=== PATIENT | female | born 1985 | race Caucasian/White ===

== ENCOUNTER 2017-07-06 10:28 | Emergency (ER) | payer SELFPAY ==
[~2017-07-06] VITALS: Ht 170.2 cm; Wt 60.0 kg
[~2017-07-06 10:28] MED LIST: ADDE30TA PO; GABA600T PO; IMIT50TA PO; LORA1TAB12 PO; METH5TAB PO; PAXI30TA7 PO; TOPI50TA7 PO
[2017-07-06 10:40] VITALS: BP 113/75; PULSE 79; RESP 16; TEMP 97.6; O2SAT 98
--- NOTE | 2017-07-06 12:10 | PD ---
HPI Chief Complaint: Related Problem Time Seen by Provider: 11:48 Travel History International Travel<30 days: No Contact w/Intl Traveler<30days: No Traveled to known affect area: No History of Present Illness HPI 32-year-old [id number] female presents to the ED with concern of heavy vaginal bleeding and pelvic cramping that started this morning. Says that she is two weeks late for her period as her LMP was in the beginning of May. She believes she is . Says she has had one sexual partner in the last month. She denies vaginal discharge or odors. Denies urinary symptoms. Denies fevers or chills. She says that she had a miscarriage previously and says her symptoms feel like this now. PFSH Past Medical History Anxiety: Yes Depression: Yes Diabetes: No Diminished Hearing: No Hepatitis: Yes (C+) Psychiatric: Yes (BODERLINE PERSONALITY D/O PER PATIENT) Migraines: Yes ?: LMP: UNKNOWN Past Surgical History Surgical History: No Previous Surgery Social History Alcohol Use: Yes Tobacco Use: Yes Substance Use: Yes Allergies-Medications (Allergen,Severity, Reaction): Coded Allergies: Sulfa (Sulfonamide Antibiotics) (Verified Allergy, Intermediate, 05/14/17) PT STATES INCREASES HER TEMP Reported Meds & Prescriptions Reported Meds & Active Scripts Active Reported Lorazepam 1 Mg Tab 1 Mg PO BID Gabapentin 600 Mg Tab 600 Mg PO TID Adderall (Amphetamine-Dextroamphetamine) 30 Mg Tab 30 Mg PO BID Avoid late evening doses. Space doses at least 4 to 6 hours if more than once/day dosing. Paxil (Paroxetine HCl) 30 Mg Tab 40 Mg PO DAILY Imitrex (Sumatriptan Succinate) 50 Mg Tab 50 Mg PO ONCE PRN If a satisfactory response has not been obtained at 2 hours, a second dose may be administered Topiramate 50 Mg Tab 100 Mg PO BID Methadone (Methadone HCl) 5 Mg Tab 2.5 Mg PO DAILY Review of Systems Except as stated in HPI: all other systems reviewed are Neg Physical Exam Narrative GENERAL: Well-developed, well-nourished slightly anxious SKIN: Focused skin assessment warm/dry. HEAD: Atraumatic. Normocephalic. EYES: Pupils equal and round. No scleral icterus. No injection or drainage. ENT: No nasal bleeding or discharge. Mucous membranes pink and moist. NECK: Trachea midline. No JVD. CARDIOVASCULAR: Regular rate and rhythm. No murmur appreciated. RESPIRATORY: No accessory muscle use. Clear to auscultation. Breath sounds equal bilaterally. GASTROINTESTINAL: Abdomen soft, mildly tender palpation in the right lower quadrant/right pelvic area without rebound tenderness, no CVA tenderness MUSCULOSKELETAL: No obvious deformities. No clubbing. No cyanosis. No edema. NEUROLOGICAL: Awake and alert. No obvious cranial nerve deficits. Motor grossly within normal limits. Normal speech. PSYCHIATRIC: Appropriate mood and affect; insight and judgment normal. Data Data Last Documented VS Vital Signs Date Time Temp Pulse Resp B/P (MAP) Pulse Ox O2 Delivery O2 Flow Rate FiO2 07/06/17 10:40 97.6 79 16 113/75 (88) 98 Orders Orders Beta Hcg (Quant/Titer) (07/06/17 11:58) Complete Blood Count With Diff (07/06/17 12:07) Ed Urine Pregnancytest Poc (07/06/17 12:42) Labs Laboratory Tests Test 07/06/17 12:04 07/06/17 13:21 Human Chorionic Gonadotropin, Quant LESS THAN 1 MIU/ML White Blood Count 7.4 TH/MM3 Red Blood Count 4.02 MIL/MM3 Hemoglobin 13.1 GM/DL Hematocrit 36.9 % Mean Corpuscular Volume 91.7 FL Mean Corpuscular Hemoglobin 32.6 PG Mean Corpuscular Hemoglobin Concent 35.6 % Red Cell Distribution Width 13.7 % Platelet Count 261 TH/MM3 Mean Platelet Volume 8.4 FL Neutrophils (%) (Auto) 70.7 % Lymphocytes (%) (Auto) 21.8 % Monocytes (%) (Auto) 6.4 % Eosinophils (%) (Auto) 0.3 % Basophils (%) (Auto) 0.8 % Neutrophils # (Auto) 5.2 TH/MM3 Lymphocytes # (Auto) 1.6 TH/MM3 Monocytes # (Auto) 0.5 TH/MM3 Eosinophils # (Auto) 0.0 TH/MM3 Basophils # (Auto) 0.1 TH/MM3 CBC Comment DIFF FINAL Differential Comment MDM Medical Decision Making Medical Screen Exam Complete: Yes Emergency Medical Condition: Yes Differential Diagnosis status, miscarriage, abnormal uterine bleeding, menstruation cycle Narrative Course 32-year-old [id number] female presents to the ED with concern of heavy vaginal bleeding and pelvic cramping that started this morning. Says that she is two weeks late for her period as her LMP was in the beginning of May. She believes she is . Says she has had one sexual partner in the last month. She denies vaginal discharge or odors. Denies urinary symptoms. Denies fevers or chills. She says that she had a miscarriage previously and says her symptoms feel like this now. She has no other complaints today. Vital signs are stable. The exam findings demonstrate a 32-year-old female, well-developed, well- nourished in no apparent distress. She is slightly anxious while discussing her situation. Her right pelvic/right lower quadrant is mildly tender to palpation without rebound tenderness. [id number] test negative. Followed up with a negative quantitative hCG. Pending CBC. Prior to discussion with the patient regarding the findings of the ECG, patient and friend left the room. Patient left AGAINST MEDICAL ADVICE without being discharged. Diagnosis Primary Impression: Vaginal bleeding Referrals: Travel Assistant Additional Instructions: You may take Tylenol or Motrin for pain. Motrin may also reduce the amount of bleeding that you have. I highly recommend he follow-up with a wrong address clerk for further evaluation. Disposition: 01 DISCHARGE HOME Condition: Stable Marina Gutierrez July 06, 2017 12:10
[2017-07-06 13:45] LABS: AUTOMATED NEUTROPHIL # 5.2 TH/MM3 (1.8-7.7); BASOPHIL # 0.1 TH/MM3 (0-0.2); BASOPHIL % 0.8 % (0.0-2.0); EOSINOPHIL % 0.3 % (0.0-4.0); HEMATOCRIT 36.9 % (35.0-46.0); HEMOGLOBIN 13.1 GM/DL (11.6-15.3); LYMPH % 21.8 % (9.0-44.0); LYMPHOCYTE # 1.6 TH/MM3 (1.0-4.8); MEAN CELL VOLUME 91.7 FL (80.0-100.0); MEAN CORPUSCULAR HEMOGLOBIN 32.6 PG (27.0-34.0); MEAN CORPUSCULAR HGB CONC 35.6 % (32.0-36.0); MEAN PLATELET VOLUME 8.4 FL (7.0-11.0); MONO % 6.4 % (0.0-8.0); MONOCYTE # 0.5 TH/MM3 (0-0.9); NEUT % 70.7 % (16.0-70.0); PLATELET COUNT 261 TH/MM3 (150-450); RED BLOOD COUNT 4.02 MIL/MM3 (4.00-5.30); RED CELL DISTRIBUTION WIDTH 13.7 % (11.6-17.2); WHITE BLOOD COUNT 7.4 TH/MM3 (4.0-11.0)
== END 2017-07-06 13:30 | disposition left against medical advice (07) ==
LOC: NEPD 10:28
DX: N93.9 Abnormal uterine and vaginal bleeding, unspecified (principal); F41.9 Anxiety disorder, unspecified; F32.9 Major depressive disorder, single episode, unspecified; B19.20 Unspecified viral hepatitis C without hepatic coma; Z72.0 Tobacco use
CPT/HCPCS: 84702; 84703; 85025; 99283

== ENCOUNTER 2018-01-28 17:12 | Inpatient (IN) ==
[2018-01-28] MEDS ORDERED: Ketorolac Inj 30 MG/ML (IVP) Vial IV.PUSH ONE (17:38)
[2018-01-28] MEDS ORDERED: Sod Chloride 0.9% Inj 1,000 ML IV.SIG SCH ×2 (17:45→18:30)
--- NOTE | 2018-01-28 17:46 | ED ---
HPI General Chief Complaint: Respiratory Symptoms Stated Complaint: poss pneumonia/poss strep Time Seen by Provider: 01/28/18 17:30 Source: patient Mode of arrival: ambulatory Limitations: no limitations History of Present Illness HPI Narrative: The patient is a 32-year-old female who presents to the emergency department for cough and cold symptoms. The patient states her initial symptoms started 1 week ago Thursday with body aches, nausea, vomiting , diarrhea, fever, chills, and sweats. The patient was seen at [facility] on and diagnosed with the flu, however, they did not do an influenza screen. The patient started to feel better on Thursday, however, on Thursday her symptoms started to return and progress. The patient now complains of a sore throat, pain with swallowing, loss of voice, and dry and nonproductive cough. The patient states that she has been "better" and only able to get out of bed to use the bathroom. She notes no appetite for the last 3 days and notes very little oral intake. The patient states she had "double pneumonia" last year in March with similar symptoms. The patient does have a history of tobacco use, last use cigarettes 1 week ago. The patient denies any history of autoimmune disorders or HIV, does have a history of hepatitis C. The patient denies any history of IV drug use or endocarditis. Symptoms are moderate and progressive without any alleviating factors. The patient's temperature earlier today was 101.4, she took ibuprofen and acetaminophen prior to arrival. The patient's primary physician is Dr. Con Guerrero. Complaint: Reports fever, cough and sore throat Onset (ago): day(s) Duration: constant and progressively worsening Severity: moderate Severity scale (1-10): 6 Relieving factors: NSAID Exacerbating factors: swallowing and speaking Description of mucous: Reports clear Able to tolerate fluids by mouth: No Context: Reports other Associated symptoms: Reports fever, chills, voice changes, myalgias, sore throat , cough, shortness of breath, nausea, vomiting and diarrhea Treatments prior to arrival: Reports acetaminophen Related Data Home Medications Medication Instructions Recorded Confirmed No Known Home Medications 01/28/18 01/28/18 Allergies Allergy/AdvReac Type Severity Reaction Status Date / Time Sulfa (Sulfonamide Allergy Intermediate Verified 05/14/17 22:25 Antibiotics) Review of Systems ROS: all other systems reviewed are negative PMFSH Medical History Medical History Patient denies medical problems (Acute) Surgical History Surgical History No history of previous surgery (Acute) Social History Social History Substance History: No History of Abuse Smoking Status: Current every day smoker Tobacco Type: Cigarettes How Often Do You Have a Drink Containing Alcohol: Never Recent Travel in [facility] within the Last 8 Weeks: No Recent Out of Country Travel within the Last 8 Weeks: No Immunization History Tetanus Immunization: Unsure Exam Narrative Exam Narrative: GENERAL: Awake, alert, 32-year-old female with a hoarse voice. SKIN: Focused skin assessment warm/dry. HEAD: Atraumatic. Normocephalic. EYES: Pupils equal and round. No scleral icterus. No injection or drainage. ENT: No nasal bleeding or discharge. Cobblestoning to posterior oropharynx but no erythema or exudate. NECK: Trachea midline. No JVD. CARDIOVASCULAR: Regular, tachycardic with a heart rate of 115. RESPIRATORY: Tachypnea with a respiratory rate of 28, no retractions, scattered rhonchi in the bases bilaterally. GASTROINTESTINAL: Abdomen soft, non-tender, nondistended. No rebound tenderness. Back: No CVA tenderness. MUSCULOSKELETAL: No obvious deformities. No clubbing. No cyanosis. No edema. NEUROLOGICAL: Awake and alert. No obvious cranial nerve deficits. Motor grossly within normal limits. Normal speech. PSYCHIATRIC: Appropriate mood and affect; insight and judgment normal. Procedures Ultrasound POC Ultrasound Procedure: I placed a 20-gauge, 1.88 inch ultrasound-guided IV in the left upper extremity using a linear probe. There was good blood return. The patient tolerated the procedure without difficulty. There was no obvious complications. Course Initial Documented Vital Signs Temperature 98.6 F 01/28/18 17:18 Pulse Rate 122 H 01/28/18 17:18 Blood Pressure 135/81 01/28/18 17:18 Last Documented Vital Signs Temperature 98.6 F 01/28/18 17:18 Pulse Rate 105 H 01/28/18 18:23 Respiratory Rate 20 01/28/18 18:23 Blood Pressure 121/74 01/28/18 18:23 Pulse Oximetry 90 L 01/28/18 18:43 Critical Care Time Critical Care Time: Yes Total Critical Care Time: 40 Attestation: Aggregate critical care time was 40 minutes. Time to perform other separately billable procedures was not included in the critical care time. My time did not include minutes spent treating any other patients simultaneously or on activities that did not directly contribute to the patient's treatment. The services I provided to this patient were to treat and/or prevent clinically significant deterioration that could result in: Anoxia, hypoxia, ARDS, septic shock, . I provided critical care services requiring my management, as noted below: Chart data review, documentation time, medication orders and management, vital sign assessments/reviewing monitor data, ordering and reviewing lab tests, ordering and interpreting/reviewing x-rays and diagnostic studies, care of the patient and discussion of the patient with the admitting physicians. Medical Decision Making MDM Narrative Medical decision making narrative: IV was established, labs are drawn and sent, and the patient was placed on cardiac telemetry monitoring and continuous pulse oximetry monitoring. EKG was ordered and interpreted. Chest x-ray was obtained. Lactic acid and blood cultures were sent to lab. The patient was administered 1 L of normal saline intravenously and Toradol 30 mg intravenously. Bedside UA test was obtained and UA was sent to lab. Nursing staff is only able to obtain a 22-gauge IV, therefore, I placed a 20- gauge ultrasound-guided IV in the left upper extremity. The patient's chest x- ray reveals bilateral infiltrates, may be viral pneumonia with ARDS, therefore, CT of the thorax without contrast was ordered. The patient was ordered cefepime and Zithromax. The patient's pulse oximetry seem to vary between the 40s and 80s with a good waveform, therefore, ABG was obtained revealing significant hypoxia. The patient was placed on a nonrebreather, she had good oxygen saturations of 88-92% on 15 L, she was able to talk, respiratory rate improved to 24. I did have a discussion with the patient regarding possible intubation if symptoms persist or progress. The patient will be admitted to the on-call cutting machine tender decorative. The patient will be admitted to the intensive care unit, I discussed the patient with Dr. Salazar. Medical Screen Exam Complete: Yes Emergency Medical Condition: Yes Differential Diagnosis Differential Diagnosis: Differential diagnosis includes influenza, pneumonia, bronchitis, viral syndrome, pyelonephritis, dehydration, acute kidney injury, pharyngitis. Lab Data Result diagrams: 01/28/18 18:05 01/28/18 18:05 POC Results POC Urine Results Negative Lab Results 01/28/18 01/28/18 01/28/18 Range/Units 18:05 18:05 18:10 CBC w Diff Auto diff final WBC 20.8 H (4.0-11.0) th/mm3 RBC 3.92 L (4.00-5.30) mil/mm3 Hgb 13.7 (11.6-15.3) gm/dL Hct 41.6 (35.0-46.0) % MCV 106.0 H (80.0-100.0) fL MCH 35.0 H (27.0-34.0) pg MCHC 33.0 (32.0-36.0) % RDW 19.6 H (11.6-17.2) % Plt Count 178 (150-450) th/mm3 MPV 8.8 (7.0-11.0) fL Neut % (Auto) 95.3 H (16.0-70.0) % Lymph % (Auto) 2.2 L (9.0-44.0) % [place] % (Auto) 1.4 (0.0-8.0) % Eos % (Auto) 0.2 (0.0-4.0) % Baso % (Auto) 0.9 (0.0-2.0) % Neut # (Auto) 19.8 H (1.8-7.7) th/mm3 Lymph # (Auto) 0.5 L (1.0-4.8) th/mm3 [place] # (Auto) 0.3 (0.0-0.9) th/mm3 Eos # (Auto) 0.0 (0.0-0.4) th/mm3 Baso # (Auto) 0.2 (0.0-0.2) th/mm3 WBC Differential . Differential Comment . Puncture Site Patient Temperature O2 Saturation (90-100) % ABG pH (7.380-7.420) ABG pCO2 (38-42) mmHg ABG pO2 (61-120) mmHg ABG HCO3 (22-26) mmol/L ABG O2 Content (12.0-20.0) Vol % ABG Base Excess (-2-2) mmol/L ABG Methemoglobin (0-2) % Alex Test Hemoglobin (12.0-16.0) G/DL Carboxyhemoglobin (0-4) % O2 Delivery Device Inspired O2 % Critical Value Sodium 138 (136-145) meq/L Potassium 2.8 L* (3.5-5.1) meq/L Chloride 108 H (98-107) meq/L Carbon Dioxide 17.0 L (21.0-32.0) meq/L Anion Gap 13 (5-15) meq/L BUN 12 (7-18) mg/dL Creatinine 0.81 (0.50-1.00) mg/dL Estimated GFR 82 L (>89) mL/min Random Glucose 150 H (74-106) mg/dL Lactic Acid (0.4-2.0) mmol/L Calcium 7.0 L* (8.5-10.1) mg/dL Calcium Adj for Albumin 8.4 L (8.5-10.1) mg/dL Magnesium 1.2 L (1.5-2.5) mg/dL Total Bilirubin 1.6 H (0.2-1.0) mg/dL AST 794 H (15-37) U/L ALT 298 H (10-53) U/L Alkaline Phosphatase 261 H (45-117) U/L Total Protein 5.7 L (6.4-8.2) g/dL Albumin 2.2 L (3.4-5.0) g/dL Urine Color Yellow (Yellw/Straw) Urine Clarity Clear (Clear) Urine pH 6.0 (5.0-8.5) Ur Specific [place] 1.010 (1.002-1.035) Urine Protein Trace (Neg-Trace) mg/dL Urine Glucose (UA) Negative (Negative) mg/dL Urine Ketones Negative (Negative) mg/dL Urine Occult Blood Negative (Negative) Urine Nitrate Negative (Negative) Urine Bilirubin Negative (Negative) Urine Urobilinogen 1.0 (Less than 2) mg/dL Ur Leukocyte Esterase Negative (Negative) Urine WBC 0-5 (0-5) /hpf Ur Squamous Epith Cells 0-5 (0-5) /hpf Urine Bacteria Rare H (None) /hpf Urine Mucus Rare H (Occasional) /lpf Micro UA Comment Culture not ind Ur Microscopic Review Microscopic reviewed Urine Culture Comments Culture not ind 01/28/18 01/28/18 Range/Units 18:30 18:50 CBC w Diff WBC (4.0-11.0) th/mm3 RBC (4.00-5.30) mil/mm3 Hgb (11.6-15.3) gm/dL Hct (35.0-46.0) % MCV (80.0-100.0) fL MCH (27.0-34.0) pg MCHC (32.0-36.0) % RDW (11.6-17.2) % Plt Count (150-450) th/mm3 MPV (7.0-11.0) fL Neut % (Auto) (16.0-70.0) % Lymph % (Auto) (9.0-44.0) % [place] % (Auto) (0.0-8.0) % Eos % (Auto) (0.0-4.0) % Baso % (Auto) (0.0-2.0) % Neut # (Auto) (1.8-7.7) th/mm3 Lymph # (Auto) (1.0-4.8) th/mm3 [place] # (Auto) (0.0-0.9) th/mm3 Eos # (Auto) (0.0-0.4) th/mm3 Baso # (Auto) (0.0-0.2) th/mm3 WBC Differential Differential Comment Puncture Site Left radial Patient Temperature 98.6 O2 Saturation 47 L* (90-100) % ABG pH 7.46 H (7.380-7.420) ABG pCO2 26 L (38-42) mmHg ABG pO2 27 L* (61-120) mmHg ABG HCO3 18 L (22-26) mmol/L ABG O2 Content 8.8 L (12.0-20.0) Vol % ABG Base Excess -5.0 L (-2-2) mmol/L ABG Methemoglobin 1.5 (0-2) % Alex Test Present Hemoglobin 13.5 (12.0-16.0) G/DL Carboxyhemoglobin 1.3 (0-4) % O2 Delivery Device Room air Inspired O2 21 % Critical Value Yes Sodium (136-145) meq/L Potassium (3.5-5.1) meq/L Chloride (98-107) meq/L Carbon Dioxide (21.0-32.0) meq/L Anion Gap (5-15) meq/L BUN (7-18) mg/dL Creatinine (0.50-1.00) mg/dL Estimated GFR (>89) mL/min Random Glucose (74-106) mg/dL Lactic Acid 6.0 H* (0.4-2.0) mmol/L Calcium (8.5-10.1) mg/dL Calcium Adj for Albumin (8.5-10.1) mg/dL Magnesium (1.5-2.5) mg/dL Total Bilirubin (0.2-1.0) mg/dL AST (15-37) U/L ALT (10-53) U/L Alkaline Phosphatase (45-117) U/L Total Protein (6.4-8.2) g/dL Albumin (3.4-5.0) g/dL Urine Color (Yellw/Straw) Urine Clarity (Clear) Urine pH (5.0-8.5) Ur Specific [place] (1.002-1.035) Urine Protein (Neg-Trace) mg/dL Urine Glucose (UA) (Negative) mg/dL Urine Ketones (Negative) mg/dL Urine Occult Blood (Negative) Urine Nitrate (Negative) Urine Bilirubin (Negative) Urine Urobilinogen (Less than 2) mg/dL Ur Leukocyte Esterase (Negative) Urine WBC (0-5) /hpf Ur Squamous Epith Cells (0-5) /hpf Urine Bacteria (None) /hpf Urine Mucus (Occasional) /lpf Micro UA Comment Ur Microscopic Review Urine Culture Comments Imaging Data Radiologist's impression: Chest X-Ray 01/28/18 17:38 CONCLUSION: Diffuse bilateral infiltrates Chest CT 01/28/18 18:20 CONCLUSION: Extensive bilateral airspace disease ECG Data EKG Prior to Arrival: No Attestation: I personally reviewed and interpreted this ECG as follows: Interpretation: EKG reveals sinus tachycardia with a heart rate of 101. No ST elevations or depressions noted. Discharge Plan Discharge Disposition Patient Disposition: ED Admit(ED Internal Use Only) Discharge Condition Condition: Critical Discharge Order Discharge Orders: ED Use Only Admit Order (Routine); Ordered 01/28/18 Ordered By: Gus Hyman Discharge Details Diagnosis: Bilateral pneumonia, Sepsis, Hypoxia, Leukocytosis Physicians Team ED Provider: Gus Hyman Primary Care Provider: Con Guerrero Rxs /Orders / Referrals /Forms Prescriptions: No Action No Known Home Medications RF: 0 Discharge Interventions Interventions: Vital Signs Last Done: 01/28/18 18:23 Status ED Status: Pending Admission
[2018-01-28] MEDS ORDERED: Azithromycin Inj 500 MG in Sodium Chlor 0.9% Inj 250 ML IV.SIG ONE (18:20)
[2018-01-28 18:21] LABS: Baso # (Auto) 0.2 th/mm3 (0.0-0.2); Baso % (Auto) 0.9 % (0.0-2.0); Eos % (Auto) 0.2 % (0.0-4.0); Hematocrit 41.6 % (35.0-46.0); Hemoglobin 13.7 gm/dL (11.6-15.3); Lymph # (Auto) 0.5 th/mm3 (1.0-4.8); Lymph % (Auto) 2.2 % (9.0-44.0); Mean Platelet Volume 8.8 fL (7.0-11.0); Mono # (Auto) 0.3 th/mm3 (0.0-0.9); Mono % (Auto) 1.4 % (0.0-8.0); Neut # (Auto) 19.8 th/mm3 (1.8-7.7); Neut % (Auto) 95.3 % (16.0-70.0); Platelet Count 178 th/mm3 (150-450); Red Blood Count 3.92 mil/mm3 (4.00-5.30); Red Cell Distribution Width 19.6 % (11.6-17.2); White Blood Count 20.8 th/mm3 (4.0-11.0)
--- NOTE | 2018-01-28 18:32 | XR ---
EXAM DATE: 01/28/2018 6:23 PM EST AGE/SEX: 32 years / Female INDICATIONS: Short of breath, flu like symptoms and fever for two weeks. CLINICAL DATA: This is the patient's initial encounter. Patient reports that signs and symptoms have been present for 2 weeks and indicates a pain score of 0/10. MEDICAL/SURGICAL HISTORY: None. None. COMPARISON: No prior exams available for comparison. FINDINGS: Diffuse bilateral airspace infiltrates most confluent in the lower lung zones. Cardiac contours are g rossly satisfactory. CONCLUSION: Diffuse bilateral infiltrates Electronically signed by: Lv Bennett MD Board Certified Radiologist 01/28/2018 6:31 PM EST
[2018-01-28 18:33] LABS: Bilirubin,Urine Negative (Negative); Clarity,Urine Clear (Clear); Color,Urine Yellow (Yellw/Straw); Glucose,Urine (UA) Negative (Negative); Leukocyte Esterase,Urine Negative (Negative); Nitrite,Urine Negative (Negative)
[2018-01-28 18:38] LABS: ABG PCO2 26 mmHg (38-42); ABG PO2 27 mmHg (61-120)
[2018-01-28 18:41] LABS: Bacteria,Urine Rare /hpf; Mucus,Urine Rare /lpf (Occasional); Squamous Epithelial Cell,Urine 0-5 /hpf (0-5); WBC,Urine 0-5 /hpf (0-5)
[2018-01-28 18:48] LABS: Albumin 2.2 g/dL (3.4-5.0); Magnesium 1.2 mg/dL (1.5-2.5); Total Protein 5.7 g/dL (6.4-8.2)
[2018-01-28 19:01] LABS: Potassium 2.8 meq/L (3.5-5.1)
[2018-01-28] MEDS ORDERED: Acetaminophen 325 MG Tablet PO ONE (19:38)
--- NOTE | 2018-01-28 19:45 | CT ---
EXAM DATE: 01/28/2018 7:18 PM EST AGE/SEX: 32 years / Female INDICATIONS: Short of breath x 4 days. Cough. Flu like symptoms x 2 weeks. Fever. Abnormal chest x- ray. CLINICAL DATA: This is the patient's initial encounter. Patient reports that signs and symptoms have been present for 4 - 6 days and indicates a pain score of 2/10. MEDICAL/SURGICAL HISTORY: None. None. RADIATION DOSE: 6.20 CTDI (mGy) COMPARISON: No prior exams available for comparison. TECHNIQUE: Multiple contiguous axial images were obtained through the chest without contrast. Image s were obtained in suspended respiration using multiple row detector helical technique. Using automa curly exposure control and adjustment of the mA and/or kV according to patient size, radiation dose was kept as low as reasonably achievable to obtain optimal diagnostic quality images. DICOM format imag e data is available electronically for review and comparison. FINDINGS: Lungs: Extensive bilateral airspace infiltrate. Mediastinum: There is good visualization of the great vessels of the middle mediastinum. No evidenc e of mediastinal or hilar adenopathy/mass. Pleurae: Small pleural effusions, slightly larger on the left than the right Axillae: Unremarkable. Bony Structures: Unremarkable. Miscellaneous: The examination was extended to include the upper abdomen, and both adrenal glands ar e normal in size and configuration. CONCLUSION: Extensive bilateral airspace disease Electronically signed by: Lv Bennett MD Board Certified Radiologist 01/28/2018 7:43 PM EST
[2018-01-28] MEDS: Potassium Chlor 20 mEq Premix 20 MEQ/100 ML PIGGYBACK IV.SIG SCH ×2 (20:17→22:23)
[2018-01-28] MEDS: Mag Sulf 1 gm/100 ml Premix 100 ML IV.SIG SCH ×2 (20:32→22:22)
[2018-01-28] MEDS ORDERED: Acetaminophen 325 MG Tablet PO PRN (20:59)
[2018-01-28 22:11] LABS: ABG Base Excess -3.6 mmol/L (-2-2); ABG PCO2 39 mmHg (38-42); ABG PO2 72 mmHg (61-120)
[2018-01-28] MEDS: Sod Chloride 0.9% Inj 1,000 ML IV.CONT SCH (22:21)
[2018-01-28] MEDS: Famotidine PF Inj 20 MG/2 ML Vial IV.PUSH SCH (22:21)
[2018-01-29] MEDS: Enoxaparin Inj 40 MG/0.4 ML Syringe SQ SCH ×2 (00:26→21:00)
[2018-01-29] MEDS ORDERED: Chlorhexidine Gluconate 2% 1 Pack (2 Cloths) TOPICAL PRN (04:00)
[2018-01-29] MEDS: Chlorhexidine Gluconate 2% 1 Pack (2 Cloths) TOPICAL SCH (04:57)
[2018-01-29 05:02] LABS: ABG PCO2 41 mmHg (38-42); ABG PO2 84 mmHg (61-120)
[2018-01-29 05:17] LABS: Chloride 115 meq/L (98-107); Potassium 3.1 meq/L (3.5-5.1); Sodium 145 meq/L (136-145)
[2018-01-29 05:41] LABS: Alanine Aminotransferase 303 U/L (10-53); Albumin 1.9 g/dL (3.4-5.0); Alkaline Phosphatase 214 U/L (45-117); Anion Gap 8 meq/L (5-15); Aspartate Aminotransferase 869 U/L (15-37); Baso % (Auto) 0.2 % (0.0-2.0); Blood Urea Nitrogen 11 mg/dL (7-18); Calcium 6.3 mg/dL (8.5-10.1); Carbon Dioxide 21.9 meq/L (21.0-32.0); Glomerular Filtration Rate Greater Than 89 mL/min (>89); Glucose,Random 110 mg/dL (74-106); Hematocrit 38.4 % (35.0-46.0); Hemoglobin 12.7 gm/dL (11.6-15.3); Lymph # (Auto) 0.7 th/mm3 (1.0-4.8); Lymph % (Auto) 5.4 % (9.0-44.0); Mean Corpuscular HGB Conc 33.1 % (32.0-36.0); Mean Corpuscular Hemoglobin 34.6 pg (27.0-34.0); Mean Corpuscular Volume 104.5 fL (80.0-100.0); Mean Platelet Volume 8.9 fL (7.0-11.0); Mono # (Auto) 0.1 th/mm3 (0.0-0.9); Mono % (Auto) 0.7 % (0.0-8.0); Neut # (Auto) 11.8 th/mm3 (1.8-7.7); Neut % (Auto) 93.7 % (16.0-70.0); Platelet Count 145 th/mm3 (150-450); Red Blood Count 3.68 mil/mm3 (4.00-5.30); Red Cell Distribution Width 19.2 % (11.6-17.2); Total Protein 5.1 g/dL (6.4-8.2); White Blood Count 12.6 th/mm3 (4.0-11.0)
--- NOTE | 2018-01-29 06:26 | XR ---
EXAM DATE: 01/29/2018 5:48 AM EST AGE/SEX: 32 years / Female INDICATIONS: Shortness of breath, patient states it is better than yesterday. CLINICAL DATA: This is the patient's subsequent encounter. Patient reports that signs and symptoms h ave been present for 2 days and indicates a pain score of 0/10. MEDICAL/SURGICAL HISTORY: None. None. COMPARISON: [facility], CHEST 1V SINGLE AP, 01/28/2018. . FINDINGS: Stable chest symptoms or there is wide spread consolidation throughout the lungs. I don't see signifi cant interval change. Heart and mediastinum unremarkable. CONCLUSION: Widespread diffuse airspace disease consolidated on the right and almost nodular on the left. No real interval change Electronically signed by: Ian Felxi MD Board Certified Radiologist 01/29/2018 6:25 AM EST
[2018-01-29] MEDS ORDERED: Midazolam Inj 5 MG/ML 1 ML Vial ONE (06:29)
[2018-01-29] MEDS ORDERED: fentaNYL Citrate Inj 100 MCG/2 ML Ampul ONE (06:31)
[2018-01-29] MEDS ORDERED: Propofol Inj 500 MG/50 ML Vial ONE (06:31)
[2018-01-29] MEDS ORDERED: Succinylcholine Inj 100 MG/5 ML Syringe IV.PUSH ONE (06:32)
[2018-01-29] MEDS ORDERED: fentaNYL Citrate Inj 100 MCG/2 ML Ampul IV.PUSH ONE (06:32)
[2018-01-29 06:47] LABS: Lymphocytes 5 % (9-44); Metamyelocytes 6 % (0-1); Monocytes 1 % (0-8); Platelet Morphology Normal (Normal); RBC Morphology Normal (Normal)
[2018-01-29] MEDS: fentaNYL 10 mcg/mL Premix Drip 2,500 MCG/250 ML BAG IV.SIG PRN (07:00)
--- NOTE | 2018-01-29 07:37 | XR ---
EXAM DATE: 01/29/2018 7:16 AM EST AGE/SEX: 32 years / Female INDICATIONS: Post intubation. CLINICAL DATA: This is the patient's subsequent encounter. Patient reports that signs and symptoms h ave been present for 2 days and indicates a pain score of Nonresponsive. MEDICAL/SURGICAL HISTORY: None. None. COMPARISON: [facility], CHEST 1V SINGLE AP, 01/29/2018. . FINDINGS: ET tube and nasogastric tube are in good position. Extensive interstitial and alveolar infiltrate is present in both lungs consistent with a severe inflammatory process. CONCLUSION: ET tube in good position. Electronically signed by: Lopez Nava MD Board Certified Radiologist 01/29/2018 7:35 AM EST
[2018-01-29] MEDS: Propofol 1000 mg/100 ml Inj 1,000 MG/100 ML BOTTLE IV.CONT PRN ×3 (07:42→18:46)
[2018-01-29 07:51] LABS: ABG Base Excess -5.6 mmol/L (-2-2); ABG PCO2 52 mmHg (38-42); ABG PO2 72 mmHg (61-120)
[2018-01-29] MEDS ORDERED: Magnesium Sulfate Inj 2 GM in Sodium Chlor 0.9% Inj 96 ML IV.SIG PRN (07:55)
[2018-01-29] MEDS ORDERED: Sodium Phosphate Inj 30 MMOL in Sodium Chlor 0.9% Inj 250 ML IV.SIG PRN (07:55)
[2018-01-29] MEDS ORDERED: Magnesium Sulfate Inj 4 GM in Sodium Chlor 0.9% Inj 92 ML IV.SIG PRN (07:55)
[2018-01-29] MEDS ORDERED: Potassium Phosphate Inj 30 MMOL in Sodium Chlor 0.9% Inj 250 ML IV.SIG PRN (07:55)
[2018-01-29] MEDS ORDERED: Potassium Chlor 40 mEq Premix 40 MEQ/100 ML PIGGYBACK IV.SIG PRN (07:55)
[2018-01-29] MEDS ORDERED: Potassium Chlor 20 mEq Premix 20 MEQ/100 ML PIGGYBACK IV.SIG PRN (07:55)
[2018-01-29] MEDS ORDERED: Potassium Phosphate 500 MG Soluble Tablet PO PRN (07:55)
[2018-01-29] MEDS ORDERED: MethylPREDNISolone Sod Succinate Inj 125 MG/2 ML Vial IV.PUSH ONE (07:58)
[2018-01-29] MEDS: Midazolam 100 MG/100 ML Inj 100 MG/100 ML BAG IV.CONT PRN ×2 (08:00→18:47)
[2018-01-29] MEDS ORDERED: Sod Chloride 0.9% Inj 1,000 ML IV.SIG SCH (08:00)
[2018-01-29] MEDS ORDERED: Vancomycin Consult Pharmacy OTHER PRN (08:18)
[2018-01-29 08:23] LABS: ABG Base Excess -7.1 mmol/L (-2-2); ABG PCO2 46 mmHg (38-42); ABG PO2 86 mmHg (61-120)
--- NOTE | 2018-01-29 08:39 | ECG ---
Date Performed: 01/28/2018 Time Performed: 18:06:43 PTAGE: 32 years EKG: SINUS TACHYCARDIA ABNORMAL RHYTHM ECG NO PREVIOUS TRACING DOCTOR: Ian Denise Interpretating Date/Time 01/29/2018 08:38:43
[2018-01-29 08:45] LABS: Amphetamine Screen,Urine Neg (Neg); Barbiturate Screen,Urine Neg (Neg); Cannabinoid Screen,Urine Neg (Neg); Cocaine Screen,Urine Pos (Neg)
[2018-01-29 08:56] LABS: Opiate Screen,Urine Neg (Neg)
--- NOTE | 2018-01-29 09:00 | P.HPCC ---
History of Present Illness Service: ICU Primary Care Physician: Con Guerrero DO Chief Complaint: Shortness of breath History of Present Illness: This is a 32-year-old female that presented to the emergency department last evening. Per report reviewed the patient had complaints myalgias, nausea, vomiting diarrhea in conjunction fever and chills per review of the records the patient went to an urgent care center on and was diagnosed with the flu and subsequently sent home the patient stated her symptoms worsen so she presented to [facility] ED on 2017. Upon presentation imaging and laboratory studies were performed that initially revealed a significant leukocytosis with a WBC count of 20.8, hypokalemia and a chest x-ray revealing extensive bilateral airspace disease. The patient was bolused with IV fluids, and received prophylactic antibiotics, blood cultures were obtained. The patient was admitted to ICU at [facility] and ICU was consulted on 01/28/2018 at 2059 ,and was placed on BiPAP overnight with worsening symptomatology. Respiratory rate throughout the night was noted to be in the high 30s-50, with O2 saturation 87-91 % throughout the night. Upon my arrival this am, I examined the patient at 0615, and upon my evaluation this a.m. was noted to be extremely dyspneic, unable to speak secondary to extreme dyspnea, respiratory rate 48-50, and O2 sat 86-87%. A stat ABG was obtained PaO2 was noted to be 84, on 100%, and the patient kept stating she could not breathe. The patient was emergently intubated x1 attempt. Visually O2 saturation remained in the mid 80s-88 % on PEEP 12, FIO2 of 100%, with a slightly extended I- time. A stat ABG was performed PaO2 was noted to be 72, ventilator adjustments continued to optimize oxygenation. Emergent A-line was placed for frequent blood sampling, to evaluate oxygenation. The patient was noted to be in a sinus tach the patient was bolused with additional IV fluids 2 L and placed on sedation, to include, Versed , propofol, fentanyl infusions. The patient's past medical history is significant for hepatitis C, borderline personality disorder Funes acted 2017 secondary to chronic anxiety per records reviewed the patient takes Klonopin. - Diagnosis (1) Acute respiratory failure with hypoxia and hypercarbia (2) Hepatitis (3) Bilateral pneumonia (4) Sepsis (5) Hypoxia (6) Leukocytosis Inpatient Certification: I certify that the inpatient services were ordered in accordance with Medicare regulations governing the order. This includes certification that hospital inpatient services are reasonable and necessary and in the case of services not specified as inpatient-only under 42 CFR 419.22(n), that they are appropriately provided as inpatient services in accordance to with the 2-midnight benchmark under 43 CFR 412.3(e) Estimated Total Length of Stay (Days): 10 Plans for Post Hospital Care: Not yet determined Review of Systems All other systems reviewed negative except as stated in HPI PMFSH - History History Provided By: Patient - Medical History Medical History: Medical History (Last Reviewed 02/11/18 @ 08:12 by Tariq Pugh, PT) History of MRSA infection Onset Date: ~01/29/18 Patient denies medical problems - Surgical History Surgical History: Surgical History (Last Reviewed 02/11/18 @ 08:12 by Tariq Pugh, PT) No history of previous surgery - Tobacco History Tobacco Use In Past 30 Days: Yes Smoking Status: Current every day smoker Tobacco Type: Cigarettes - Alcohol History How Often Do You Have a Drink Containing Alcohol: Never - Substance Use History Substance History: No History of Abuse - Travel History Recent Travel in the [place] Within the Last 8 Weeks: No Recent Travel Out of the Country Within the Last 8 Weeks: No - Immunization History Tetanus Immunization: Unsure Medications and Allergies Active Medications: Active Medications Acetaminophen (Tylenol) 650 mg PO Q6H PRN PRN Reason: PAIN 1-10 AND/OR FEVER >101F Albuterol (Duoneb Neb (Prn)) 1 ampul NEB Q4HR NEB PRN PRN Reason: SHORTNESS OF BREATH Albuterol (Duoneb Neb (Chanda)) 1 ampul NEB Q4HR NEB CHANDA Last Admin: 01/29/18 03:16 Dose: 1 ampul Chlorhexidine Gluconate (Chlorhexidine 2% Cloth) 3 pack TOPICAL DAILY@0400 CHANDA Stop: 02/03/18 03:59 Last Admin: 01/29/18 04:57 Dose: 3 pack Chlorhexidine Gluconate (Chlorhexidine 2% Cloth) 3 pack TOPICAL DAILY@0400 PRN PRN Reason: Extra cloth needed Stop: 02/03/18 03:59 Chlorhexidine Gluconate (Peridex 0.12% Oral Kit) 15 ml OROPHARYNG BID@0800, 2000 [facility] Enoxaparin Sodium (Lovenox Inj) 40 mg SQ Q24H CHANDA Last Admin: 01/29/18 00:26 Dose: 40 mg Famotidine (Pepcid Pf Inj) 20 mg IV.PUSH Q12HR CHANDA Last Admin: 01/28/18 22:21 Dose: 20 mg Famotidine (Pepcid Pf Inj) 20 mg IV.PUSH Q12HR CHANDA Sodium Chloride (Ns Inj) 1,000 mls @ 75 mls/hr IV.CONT .[id number] CHANDA Last Admin: 01/28/18 22:21 Dose: 75 mls/hr Cefepime HCl 2,000 mg/ Sodium (Chloride) 100 mls @ 200 mls/hr IV.SIG Q8H CHANDA Last Infusion: 01/29/18 04:56 Dose: Infused Azithromycin 500 mg/ Sodium (Chloride) 250 mls @ 250 mls/hr IV.SIG Q24H CHANDA Propofol (Diprivan 1000 Mg/100 Ml Inj) 1,000 mg in 100 mls @ 1.998 mls/hr IV.CONT TITRATE PRN; Protocol PRN Reason: Per Protocol Fentanyl (Fentanyl 10 Mcg/Ml Premix Drip) 2,500 mcg in 250 mls @ 5 mls/hr IV.SIG TITRATE PRN; Protocol PRN Reason: Per Protocol Sodium Chloride (Ns Inj) 1,000 mls @ 1,000 mls/hr IV.SIG BOLUS [facility] Stop: 01/29/18 08:59 Midazolam HCl (Versed Inj) 100 mg in 100 mls @ 2 mls/hr IV.CONT TITRATE PRN; Protocol PRN Reason: See protocol Magnesium Sulfate 2 gm/ Sodium (Chloride) 100 mls @ 50 mls/hr IV.SIG UNSCH PRN PRN Reason: For Magnesium 1.2 - 1.6 mg/dL Potassium Chloride (Kcl 40 Meq Premix Inj) 40 meq in 100 mls @ 25 mls/hr IV.SIG Q2H PRN PRN Reason: For Potassium 2.8 - 3.2 mEq/L Potassium Chloride (Kcl 20 Meq Premix Inj) 20 meq in 100 mls @ 50 mls/hr IV.SIG Q2H PRN PRN Reason: For Potassium 3.3 - 3.5 mEq/L Potassium Chloride (Kcl 40 Meq Premix Inj) 40 meq in 100 mls @ 25 mls/hr IV.SIG UNSCH PRN PRN Reason: For Potassium 3.3 - 3.5 mEq/L Potassium Chloride (Kcl 20 Meq Premix Inj) 20 meq in 100 mls @ 50 mls/hr IV.SIG Q2H PRN PRN Reason: For Potassium 2.8 - 3.2 mEq/L Sodium Phosphate 30 mmol/ (Sodium Chloride) 260 mls @ 42 mls/hr IV.SIG UNSCH PRN PRN Reason: For Phosphorus < 2.5 mg/dL Magnesium Sulfate 4 gm/ Sodium (Chloride) 100 mls @ 50 mls/hr IV.SIG UNSCH PRN PRN Reason: For Magnesium 0.9 - 1.1 mg/dL Potassium Phosphate 30 mmol/ (Sodium Chloride) 260 mls @ 42 mls/hr IV.SIG UNSCH PRN PRN Reason: SEE LABEL COMMENTS Magnesium Oxide (Mag-Ox) 800 mg PO UNSCH PRN PRN Reason: For Magnesium 1.2 - 1.6 mg/dL Methylprednisolone Sodium Succinate (Solumedrol Inj) 125 mg IV.PUSH ONCE ONE Stop: 01/29/18 07:59 Miscellaneous Medication () 1 each OROPHARYNG 0000,0400,1200,1600 CHANDA Potassium Bicarb/Potassium Chloride (K-Lyte Cl Eff) 50 meq PO UNSCH PRN PRN Reason: For Potassium 3.3 - 3.5 mEq/L Potassium Phosphate (K-Phos Original) 2,000 mg PO Q4H PRN PRN Reason: Phosphorus Less Than 2.5 mg/dL Potassium Phosphate (K-Phos Original) 2,000 mg PO UNSCH PRN PRN Reason: SEE LABEL COMMENTS Allergies Allergy/AdvReac Type Severity Reaction Status Date / Time Sulfa (Sulfonamide Allergy Intermediate Verified 05/14/17 22:25 Antibiotics) Home Medications Medication Instructions Recorded Confirmed Type No Known Home Medications 01/28/18 01/28/18 History Results - Labs CBC & Chem 7: 02/14/18 03:38 02/14/18 03:38 Labs: Short CBC 01/28/18 01/29/18 Range/Units 18:05 04:25 WBC 20.8 H 12.6 H (4.0-11.0) th/mm3 Hgb 13.7 12.7 (11.6-15.3) gm/dL Hct 41.6 38.4 (35.0-46.0) % Plt Count 178 145 L (150-450) th/mm3 BMP 01/28/18 01/29/18 18:05 04:25 Sodium 138 145 Potassium 2.8 L* 3.1 L Chloride 108 H 115 H Carbon Dioxide 17.0 L 21.9 BUN 12 11 Creatinine 0.81 0.48 L Calcium 7.0 L* 6.3 L* Liver Function 01/28/18 01/29/18 Range/Units 18:05 04:25 Total Bilirubin 1.6 H 1.4 H (0.2-1.0) mg/dL AST 794 H 869 H (15-37) U/L ALT 298 H 303 H (10-53) U/L Alkaline Phosphatase 261 H 214 H (45-117) U/L Albumin 2.2 L 1.9 L (3.4-5.0) g/dL Urine 01/28/18 Range/Units 18:10 Urine Color Yellow (Yellw/Straw) Urine Clarity Clear (Clear) Urine pH 6.0 (5.0-8.5) Ur Specific [place] 1.010 (1.002-1.035) Urine Protein Trace (Neg-Trace) mg/dL Urine Glucose (UA) Negative (Negative) mg/dL - Imaging Impressions Chest X-Ray 01/28/18 17:38 CONCLUSION: Diffuse bilateral infiltrates Chest CT 01/28/18 18:20 CONCLUSION: Extensive bilateral airspace disease Chest X-Ray 01/29/18 05:00 CONCLUSION: Widespread diffuse airspace disease consolidated on the right and almost nodular on the left. No real interval change Chest X-Ray 01/29/18 06:53 CONCLUSION: ET tube in good position. Exam Vital signs: Vital Signs 01/28/18 17:18 01/28/18 17:38 01/28/18 18:23 Temperature 98.6 F Pulse Rate 122 H 105 H Respiratory Rate 20 Blood Pressure 135/81 121/74 Pulse Oximetry 44 L 95 01/28/18 18:43 01/28/18 19:30 01/28/18 20:30 Temperature 100.1 F H Pulse Rate 101 H 94 H Respiratory Rate 28 H 28 H Blood Pressure 123/64 118/60 Pulse Oximetry 90 L 01/28/18 21:25 01/28/18 21:30 01/28/18 22:30 Temperature 99.8 F H Pulse Rate 92 H Respiratory Rate 28 H 18 Blood Pressure 107/59 L 107/59 L Pulse Oximetry 94 L 95 94 L 01/28/18 22:45 01/28/18 23:05 01/29/18 00:00 Temperature 100 F H Pulse Rate 84 85 84 Respiratory Rate 32 H 33 H 35 H Blood Pressure 133/69 116/60 Pulse Oximetry 95 94 L 01/29/18 00:41 01/29/18 01:00 01/29/18 02:00 Temperature Pulse Rate 82 84 Respiratory Rate 33 H 36 H Blood Pressure 106/52 L 107/56 L Pulse Oximetry 94 L 93 L 92 L 01/29/18 03:00 01/29/18 03:43 01/29/18 04:00 Temperature 99.9 F H Pulse Rate 93 H 87 Respiratory Rate 36 H 38 H Blood Pressure 119/64 119/61 Pulse Oximetry 92 L 93 L 93 L 01/29/18 05:00 01/29/18 06:00 Temperature Pulse Rate 93 H 97 H Respiratory Rate 35 H 47 H Blood Pressure 135/70 141/60 H Pulse Oximetry 93 L 92 L Intake & Output 01/28/18 01/29/18 01/29/18 18:59 06:59 18:59 Intake Total 2850 / 2850 Output Total 650 / 650 Balance 2200 / 2200 Weight 66 kg 66.6 kg Intake: IV 2850 / 2850 Azithromycin Inj 500 MG In NS 250 / 250 Inj 250 ML @ 250 mls/hr IV.SIG ONCE ONE Rx#:[id number] Maxipime Inj 2,000 MG In NS Inj 200 / 200 100 ML @ 200 mls/hr IV.SIG Q8H CHANDA Rx#:[id number] Magnesium Sulfate 1 gm/D5W 100 200 / 200 ml Premix 100 ML @ 100 mls/hr IV.SIG Q1H CHANDA Rx#:[id number] KCl 20 mEq Premix Inj 20 meq In 200 / 200 100 ml @ 50 mls/hr IV.SIG Q2H CHANDA Rx#:[id number] NS Inj 1,000 ML @ 1000 mls/hr 1999 / 1999 IV.SIG BOLUS CHANDA Rx#:[id number] Output: Urine 450 / 450 Emesis 200 / 200 Other: Weight On Admission 66.6 kg - Constitutional severe distress, average body habitus, cooperative - Routine HEENT Exam Head: Present: normocephalic Eye: Present: EOMI, PERRL, normal accommodation ENT: Present: mucous membranes dry, dentition normal, nares patent, external ear normal - Routine Respiratory Exam Present: decreased breath sounds, prolonged expiratory phase, respiratory distress, diminished air movement - Routine Cardiovascular Exam Present: RRR, S1, S2, tachycardia - Routine Abdominal Exam Present: soft, normoactive bowel sounds - Routine Extremities Exam Present: pulses intact, normal capillary refill - Routine Skin Exam Present: intact - Routine Neurological Exam Present: alert, oriented X3, moving all extremities, normal tone, vision grossly intact Caprini VTE Risk Assessment Caprini VTE Risk Assessment: Moderate/High Risk (score >= 2) Caprini Risk Assessment Model: Point Value = 1 Point Value = 2 Point Value = 3 Point Value = 5 Age 41-60 Minor surgery BMI > 25 kg/m2 Swollen legs Varicose veins or History of unexplained or recurrent spontaneous Oral contraceptives or hormone replacement Sepsis (< 1 month) Serious lung disease, including pneumonia (< 1 month) Abnormal pulmonary function Acute myocardial infarction Congestive heart failure (< 1 month) History of inflammatory bowel disease Medical patient at bed rest Age 61-74 Arthroscopic surgery Major open surgery (> 45 min) Laparoscopic surgery (> 45 min) Malignancy Confined to bed (> 72 hours) Immobilizing plaster cast Central venous access Age >= 75 History of VTE Family history of VTE Factor V Leiden Prothrombin [id number] Lupus anticoagulant Anticardiolipin antibodies Elevated serum homocysteine Heparin-induced thrombocytopenia Other congenital or acquired thrombophilia Stroke (< 1 month) Elective arthroplasty Hip, pelvis, or leg fracture Acute spinal cord injury (< 1 month) Prophylaxis Regimen: Total Risk Factor Score Risk Level Prophylaxis Regimen 0-1 Low Early ambulation 2 Moderate Order ONE of the following: *Sequential Compression Device (SCD) *Heparin 5000 units SQ BID 3-4 Higher Order ONE of the following medications: *Heparin 5000 units SQ TID *Enoxaparin/Lovenox 40 mg SQ daily (WT < 150 kg, CrCl > 30 mL/min) *Enoxaparin/Lovenox 30 mg SQ daily (WT < 150 kg, CrCl > 10-29 mL/min) *Enoxaparin/Lovenox 30 mg SQ BID (WT < 150 kg, CrCl > 30 mL/min) AND/OR *Sequential Compression Device (SCD) 5 or more Highest Order ONE of the following medications: *Heparin 5000 units SQ TID (Preferred with Epidurals) *Enoxaparin/Lovenox 40 mg SQ daily (WT < 150 kg, CrCl > 30 mL/min) *Enoxaparin/Lovenox 30 mg SQ daily (WT < 150 kg, CrCl > 10-29 mL/min) *Enoxaparin/Lovenox 30 mg SQ BID (WT < 150 kg, CrCl > 30 mL/min) AND *Sequential Compression Device (SCD) Assessment and Plan - Problem List (1) Acute respiratory failure with hypoxia and hypercarbia Code(s): J96.01 - Acute respiratory failure with hypoxia; J96.02 - Acute respiratory failure with hypercapnia Status: Resolved (2) Hepatitis Code(s): K75.9 - Inflammatory liver disease, unspecified Status: Acute (3) Bilateral pneumonia Code(s): J18.9 - Pneumonia, unspecified organism Status: Acute (4) Sepsis Code(s): A41.9 - Sepsis, unspecified organism Status: Acute (5) Hypoxia Code(s): R09.02 - Hypoxemia Status: Acute (6) Leukocytosis Code(s): D72.829 - Elevated white blood cell count, unspecified Status: Acute - Assessment and Plan Plan: Assessment This is a 32-year old female with severe respiratory distress secondary to acute hypoxemic and hypercapnic respiratory failure, requiring emergent intubation due to bilateral pneumonia. The patient remains with a PaO2 of 72, with adjustments of ventilator settings. The patient is critically ill. Plan by systems: Neurologic: Anxiety disorder Borderline personality disorder Maintain Versed, fentanyl, and propofol infusions for analgesia and sedation, to maintain ventilator synchrony Acetaminophen 650 mg every 6 hours as needed for temperature greater than 101.0 No Daily sedation vacation at this time secondary to increased FiO2 requirements in order to maintain oxygenation Respiratory: Acute hypoxemic and hypercarbic respiratory failure Bilateral pneumonia Tobacco use disorder Vent settings currently IL VC/AC, 500/22/+12/with FIO2 100% Continue to monitor serial chest Xray Add methylprednisolone to medication regimen Obtain sputum and urine culture Influenza antigens A/Bneg 01/29-intubated 7.5 ETT 22 at the [facility] 01/28chest x-ray widespread diffuse airspace disease 01/29 chest w-ind-juvonx inflammatory response Methylprednisolone 125 mg IV x1, methylprednisolone 40 mg every 8hr Cardiovascular: Sinus tachycardia Maintain MAP > 65mmHg Insert arterial line for close blood pressure monitoring as well as blood sampling for frequent ABGs Obtain urine drug screen Renal: Insert Garcia to to assess volume status -- Strict I/Os FEN/GI: Hypokalemia Hypomagnesemia Hepatitis C Transaminitis Maintain n.p.o. status for now Insert OGT Monitor CMP Electrolyte replacement per ICU protocol Heme/ID: Pneumonia Severe sepsis Leukocytosis ARDS Obtain Legionella, mycoplasma, pneumococcal antigens Obtain sputum culture Follow-up blood culture Monitor CBC Patient initiated on azithromycin 500 mg every 24, and cefepime 2 g every 8hr ( day 2), vancomycin added to medication regimen ID consulted-appreciate recommendations Follow-up lactate level 6.0->2.5 Endocrine: Glucose monitoring per ICU protocol 4 hours -- SSI Prophylaxis: GI Prophylaxis famotidine DVT Prophylaxis -- SCDs Lines: Peripheral IVs x3. Arterial line placed left radial 01/29 Dispo: My billing statement This patient remains critically ill with one or more organ systems which are or may become a threat to life. I have spent in excess of 75 minutes discontinuously in the care and management of this patient. This time is exclusive of procedures, and includes, but is not limited to, evaluation of the patient, review of the medical record, discussions with family, consultants, nursing staff, or respiratory therapy, and documentation in the medical record. Code Status: Full Discussed Condition With: Gianna Wayne [phone], patient's mother, and [employer] HAND at bedside H&P: Quality - VTE Deep Vein Thrombosis/Pulmonary Embolism Present on Admission: No (3) Bilateral pneumonia Qualifiers: Pneumonia type: due to unspecified organism Lung location: unspecified part of lung Qualified Code(s): J18.9 - Pneumonia, unspecified organism (4) Sepsis Qualifiers: Sepsis type: sepsis due to unspecified organism Qualified Code(s): A41.9 - Sepsis, unspecified organism (6) Leukocytosis Qualifiers: Leukocytosis type: unspecified Qualified Code(s): D72.829 - Elevated white blood cell count, unspecified
--- NOTE | 2018-01-29 09:04 | P.PCN ---
Date of procedure: 01/29/18 Pre-op diagnosis: Acute hypoxemic respiratory failure secondary to pneumonia Post-op diagnosis: same Procedure: Endotracheal Intubation Diagnosis: Acute hypoxemic/hypercarbic respiratory failure secondary to pneumonia Indications: Acute respiratory failure Consent: Emergent/patient Anesthesia: see MAR Description of the Procedure: The patient was positioned in the sniffing position. Pre-oxygenation was performed using a 100% BMV. Anesthesia was induced via rapid sequence. A MAC blade 3.0 was used for laryngoscopy and a Grade 1 view was obtained. A 7.5 cuffed endotracheal tube was inserted atraumatically through the vocal cords. Confirmation of correct endotracheal tube placement was made by equal and bilateral breath sounds and colorimetric CO2 detection. The endotracheal tube was secured at 22 cm at the teeth. There were no immediate complications noted. The patient remained hemodynamically stable throughout the procedure. A chest x-ray has been ordered. I personally performed the procedure. Condition: critical Disposition: ICU
--- NOTE | 2018-01-29 09:06 | P.PCN ---
Date of procedure: 01/29/18 Pre-op diagnosis: Acute hypoxemic/hypercarbic respiratory failure Post-op diagnosis: same Procedure: Procedure: Arterial Line Placement Left radial Diagnosis: Acute hypoxemic and hypercarbic respiratory failure Indications: Same Consent: Emergent Description of the Procedure: The left radial was prepped and draped sterilely. 1% lidocaine was used for local anesthesia. The pulse was located and a needle was advanced into the artery. A 20 gauge, 3.5 cm catheter was advanced into the artery using a modified Seldinger technique. The catheter was sutured to the skin and a sterile dressing was applied. The catheter was connected to a pressure transducer and an arterial waveform was noted. There were no immediate complications noted. There was minimal EBL. I personally performed the procedure. Condition: critical Disposition: ICU
[2018-01-29] MEDS: Famotidine PF Inj 20 MG/2 ML Vial IV.PUSH SCH ×4 (09:31→20:11)
[2018-01-29] MEDS: Vancomycin Inj 1,250 MG in Sodium Chlor 0.9% Inj 250 ML IV.SIG SCH ×2 (09:40→20:58)
[2018-01-29 10:12] LABS: ABG Base Excess -6.6 mmol/L (-2-2); ABG PCO2 37 mmHg (38-42); ABG PO2 114 mmHg (61-120)
[2018-01-29] MEDS: Chlorhexidine 0.12% Oral Kit 15 ML UDC OROPHARYNG SCH ×2 (10:31→19:31)
[2018-01-29] MEDS: Oral Hygiene Kit OROPHARYNG SCH ×3 (12:00→23:32)
[2018-01-29] MEDS: Sod Chloride 0.9% Inj 1,000 ML IV.CONT SCH ×2 (12:36→19:30)
--- NOTE | 2018-01-29 12:58 | P.DIET ---
Nutritional Evaluation Type of nutrition evaluation: initial Nutrition consult regarding: Tube Feeding Nutrition screening: [facility] [place] Screening comments: [facility] [place] 01/29/18 Objective - Diagnosis Bilateral Pneumonia w/Hypoxia, Sepsis, Leukocytosis - Objective % IBW: 109 Body Weight Used for Calculations: Actual (66.6 kg) Energy Needs - Lower Range (kCal/kg): 25 Energy Needs - Upper Range (kCal/kg): 30 Lower Limit kCal/kg (kCals): 1,665 Upper Limit kCal/kg (kCals): 1,998 Lower Limit Protein Factor (Grams per Kg): 1.1 Upper Limit Protein Factor (Grams per Kg): 1.3 Lower Protein Needs (Protein): 73 Upper Protein Needs (Protein): 87 Dietitian Reviewed in Medical Record: Curent medications, Intake & Output, Labs , Medical history Diet Order: NPO Objective Comments: PMH includes: Hep C, borderline personality, anxiety Glucose 103 Meds include: Pepcid, Propofol Assessment Assessment: Pt is at high nutritional risk r/t diagnosis and need for TF'ing. Rec TF'ing w/ Jevity 1.5 @ goal rate 50ml/hr to offer 1800 kcal, 77g protein and 912ml free water. Propofol provides some additional kcals(1.1 kcal/ml)when running. Labs reviewed. Additional Recs to follow r/t Clinical Course. Recommendations: 1. Rec TF'ing w/Jevity 1.5 @ goal rate 50ml/hr 2. Propofol provides some additional kcals(1.1 kcal/ml)when running 3. Additional Recs to follow r/t Clinical Course Dietitian to Monitor: Lab values, Intake & Output, Tube feeding tolerance, Weight change, Medical course
--- NOTE | 2018-01-29 13:07 | MB ---
cc: Obey Carballo MD DATE: 01/29/2018 REQUESTING PHYSICIAN: Shalom Salazar MD. REASON FOR VISIT: 1. Pneumonia 2. Leukocytosis. HISTORY OF PRESENT ILLNESS: This is a 32-year-old white female who presented to the emergency department yesterday evening with respiratory symptoms. The patient was intubated this morning and is currently on the ventilator and sedated. Information is obtained from the medical record. She is currently on 100% FiO2. Emergency department report stated that the patient developed symptoms about a week ago consisting of body aches, nausea, vomiting, diarrhea, fever, chills, and sweats. She was seen at an urgent care center about a week ago and was diagnosed with flu. She subsequently developed a sore throat and pain on swallowing and loss of the voice as well as nonproductive cough. Her energy level is also reported to be very low. The patient was seen in the emergency department and temperature was 98.6, heart rate was elevated at 122, and white count was elevated at 20.8. She was put on nonrebreather mask and oxygen saturation was noted to be between 88% and 92%. The patient was subsequently intubated this morning and is currently on 100% FiO2. IMAGING: Chest x-ray showed diffuse bilateral pulmonary infiltrates. CT scan also confirms extensive bilateral airspace infiltrate. DIAGNOSTIC DATA: The patient had positive toxicology screen for cocaine. Her liver function tests is markedly elevated. Lactic acid is elevated at 2.5. She has been started on broad spectrum antibiotics. Blood cultures were obtained and results are pending. Sputum culture is pending. Influenza test is negative for A and B. THE PATIENT IS NOTED TO BE ALLERGIC TO SULFA. Additional details of the past medical history are not available except for that noted in the medical record. It is reported that the patient denied medical problems. PAST MEDICAL HISTORY: Reportedly negative. The patient has been evaluated for psychiatric adjustment disorder. She was in the emergency department on 05/14/2017. ALLERGIES: SULFA. MEDICATIONS: 1. Azithromycin. 2. Cefepime 3. Vancomycin. 4. DuoNeb. 5. Lovenox. 6. Pepcid. SOCIAL HISTORY: Per medical record, current smoker. No alcohol use. Toxicology screen is positive for cocaine. FAMILY HISTORY: Unable to obtain. REVIEW OF SYSTEMS: Unable to obtain. PHYSICAL EXAMINATION: GENERAL: She is a slender female who is intubated on the ventilator. She is in no acute distress. VITAL SIGNS: Temperature 99.9, BP is 90/46, respirations per ventilator. HEENT: The head is atraumatic. Extraocular movements cannot be fully assessed. The sclerae is nonicteric. Oropharynx intubated. NECK: No adenopathy or swelling. LUNGS: Bilateral rhonchi. HEART: Normal S1 and S2, without audible murmurs, rubs, or gallops. ABDOMEN: Bowel sounds diminished. Soft, nontender. No palpable mass. RECTAL: Not performed. EXTREMITIES: No clubbing. No cyanosis or edema. SKIN: No rash. The skin is warm and moist. NEUROLOGIC: Unable to assess. PSYCHIATRIC: Unable to assess. LABORATORY DATA: WBC 12.6, platelets 145, hemoglobin 12.7, 78% neutrophils, 5% lymphocytes. Creatinine 0.48. Estimated GFR greater than 89, AST 869, ALT 303, alkaline phosphatase 214. IMPRESSION: 1. Bilateral pneumonia. 2. Fever. 3. Hypoxia. 4. Acute respiratory failure. 5. Elevated liver function tests. 6. Leukocytosis. 7. ALLERGY TO SULFA. RECOMMENDATIONS: 1. Continue cefepime. 2. Continue azithromycin. 3. Continue vancomycin. 4. Add pentamidine for opportunistic pneumonia. 5. Obtain 2 lymphocyte profiles. 6. Obtain LDH. 7. Agree with HIV test. This has been ordered by Dr. Cornejo. 8. Monitor blood culture. 9. Monitor sputum culture. 10. Monitor chest x-rays. It is noted that the patient denies IV drug use. Thank you for this consultation. I will follow the patient's progress and cultures and we will make further recommendations upon followup. MD OG Alvarez/mikaela , 12:15 PM , 12:29 PM OSMAN
[2018-01-29 13:14] LABS: Hepatitis A IgM Antibody Nonreactive (Nonreactive)
[2018-01-29 13:15] LABS: Hepatitits B Surface Antigen Nonreactive (Nonreactive)
[2018-01-29] MEDS: Phenylephrine Inj 40 MG in Dextrose 5% in Water Inj 496 ML IV.CONT PRN ×4 (14:00→22:16)
[2018-01-29 14:11] LABS: ABG Base Excess -7.1 mmol/L (-2-2); ABG PCO2 39 mmHg (38-42); ABG PO2 111 mmHG (61-120)
[2018-01-29] MEDS: MethylPREDNISolone Sod Succinate Inj 40 MG/ML Vial IV.PUSH SCH ×2 (15:21→21:00)
--- NOTE | 2018-01-29 15:25 | XR ---
EXAM DATE: 01/29/2018 3:19 PM EST AGE/SEX: 32 years / Female INDICATIONS: Evaluate central line placement. CLINICAL DATA: This is the patient's subsequent encounter. Patient reports that signs and symptoms h ave been present for 2 days and indicates a pain score of Nonresponsive. MEDICAL/SURGICAL HISTORY: None. None. COMPARISON: [facility], CHEST 1V SINGLE AP, 01/29/2018. . FINDINGS: A right internal jugular central line has been placed and has its tip in the superior vena cava. Ther e is no pneumothorax. The endotracheal tube and nasogastric tube are stable. Severe diffuse infiltrat es are again noted and unchanged the heart is stable. CONCLUSION: 1. No pneumothorax status post placement of right internal jugular central line which has its tip in the superior vena cava. 2. Severe diffuse pulmonary infiltrates bilaterally consistent with severe pulmonary edema or pneumo trupti. Electronically signed by: Sae Israel MD Board Certified Radiologist 01/29/2018 3:24 PM EST
--- NOTE | 2018-01-29 15:39 | ECHRPT ---
Indication: SEPSIS POSS ENDOCARDITIS CONCLUSIONS Moderately dilated left ventricle. Mild concentric left ventricular hypertrophy. The left ventricular systolic function is moderately reduced with an estimated ejection fraction in the range of 40-45%. There is regional anteroseptal, anterior, apical, and inferoapical moderate hypokinesis. There is b est preserved systolic function at the anterior and posterior basal segments. This is consistent with L AD territory infarct pattern versus Takotsubo cardiomyopathy.[id number] mitral valve regurgitation. Aortic valve sclerosis is present. No aortic valve regurgitation. Mild aortic valve stenosis. The estimated pulmonary arterial pressure is 42 mmHg. There is a small pericardial effusion present. No hemodynamically significant echocardiographic feat ures were observed (no pre-tamponade physiology). BP: / HR: Rhythm: MEASUREMENTS (Male / Female) Normal Values Technical Quality: 2D ECHO LV Diastolic Diameter PLAX 5.1 cm 4.2 - 5.9 / 3.9 - 5.3 cm LV Systolic Diameter PLAX 4.0 cm IVS Diastolic Thickness 0.9 cm 0.6 - 1.0 / 0.6 - 0.9 cm LVPW Diastolic Thickness 0.9 cm 0.6 - 1.0 / 0.6 - 0.9 cm LV Relative Wall Thickness 0.4 RV Internal Dim ED PLAX 1.9 cm LVOT Diameter 1.3 cm Aortic Root Diameter 1.7 cm LV Ejection Fraction MOD 4C 42.9 % LV Ejection Fraction 4C AL 42.3 % LV Ejection Fraction MOD 2C 15.9 % LV Ejection Fraction 2C AL 12.3 % M-MODE Aortic Root Diameter MM 3.2 cm LA Systolic Diameter MM 3.4 cm LA Ao Ratio MM 1.1 AV Cusp Separation MM 2.0 cm DOPPLER AV Peak Velocity 115.0 cm/s AV Peak Gradient 5.3 mmHg LVOT Peak Velocity 85.9 cm/s LVOT Peak Gradient 3.0 mmHg AV Area Cont Eq pk 1.0 cm Mitral E Point Velocity 80.9 cm/s Mitral A Point Velocity 61.7 cm/s Mitral E to A Ratio 1.3 LV E' Lateral Velocity 5.8 cm/s Mitral E to LV E' Lateral Ratio 14.1 LV E' Septal Velocity 9.8 cm/s Mitral E to LV E' Septal Ratio 8.2 TR Peak Velocity 284.0 cm/s TR Peak Gradient 32.3 mmHg Right Atrial Pressure 10.0 mmHg Pulmonary Artery Systolic Pressu 42.3 mmHg Right Ventricular Systolic Press 42.3 mmHg PV Peak Velocity 105.0 cm/s PV Peak Gradient 4.4 mmHg FINDINGS LEFT VENTRICLE Moderately dilated left ventricle. Mild concentric left ventricular hypertrophy. The left ventricular systolic function is moderately reduced with an estimated ejection fraction in the range of 40-45%. There is regional anteroseptal, anterior, apical, and inferoapical moderate hypokinesis. There is b est preserved systolic function at the anterior and posterior basal segments. This is consistent with L AD territory infarct pattern versus Takotsubo cardiomyopathy. RIGHT VENTRICLE Normal right ventricular size and systolic function. LEFT ATRIUM The left atrial size is normal. RIGHT ATRIUM The right atrial size is normal. ATRIAL SEPTUM Normal atrial septal thickness without atrial level shunting by limited color doppler interrogation. AORTA The aortic root and proximal ascending aorta are normal in size on limited imaging. MITRAL VALVE Torly-of-hgia mitral valve regurgitation. AORTIC VALVE Trileaflet aortic valve. Aortic valve sclerosis is present. No aortic valve regurgitation. Mild aortic valve stenosis. TRICUSPID VALVE The estimated pulmonary arterial pressure is 42 mmHg. PULMONARY VALVE No pulmonary valve regurgitation or stenosis. VESSELS The inferior vena cava is normal in size. PERICARDIUM There is a small pericardial effusion present. No hemodynamically significant echocardiographic feat ures were observed (no pre-tamponade physiology). OTHER FINDINGS No vegetations noted Ian Denise MD, FACC (Electronically Signed) Final Date:29 January 2018 15:38
[2018-01-29] MEDS: Potassium Chlor 40 mEq Premix 40 MEQ/100 ML PIGGYBACK IV.SIG PRN ×2 (16:05→19:30)
--- NOTE | 2018-01-29 17:17 | XR ---
EXAM DATE: 01/29/2018 5:12 PM EST AGE/SEX: 32 years / Female INDICATIONS: Dobbhoff placement. CLINICAL DATA: This is the patient's initial encounter. Patient reports that signs and symptoms have been present for 1 day and indicates a pain score of Nonresponsive. MEDICAL/SURGICAL HISTORY: None. None. COMPARISON: No prior exams available for comparison. FINDINGS: Examination of the abdomen demonstrates a normal bowel gas pattern. There is a Dobbhoff feeding tube in the distal stomach. CONCLUSION: Doppler feeding tube in good position in the distal stomach. Electronically signed by: Francis Corley MD Board Certified Radiologist 01/29/2018 5:15 PM EST
[2018-01-29] MEDS: Cisatracurium Inj 100 MG in Sodium Chlor 0.9% Inj 240 ML IV.CONT PRN (17:45)
[2018-01-29] MEDS: Azithromycin Inj 500 MG in Sodium Chlor 0.9% Inj 250 ML IV.SIG SCH (19:31)
[2018-01-30] MEDS: Propofol 1000 mg/100 ml Inj 1,000 MG/100 ML BOTTLE IV.CONT PRN ×3 (01:37→21:09)
[2018-01-30] MEDS: Chlorhexidine Gluconate 2% 1 Pack (2 Cloths) TOPICAL SCH (03:43)
[2018-01-30] MEDS: Oral Hygiene Kit OROPHARYNG SCH ×4 (03:43→23:30)
[2018-01-30] MEDS: Sod Chloride 0.9% Inj 1,000 ML IV.CONT SCH ×2 (03:43→20:00)
[2018-01-30 03:52] LABS: Baso % (Auto) 0.1 % (0.0-2.0); Hematocrit 35.1 % (35.0-46.0); Lymph # (Auto) 0.4 th/mm3 (1.0-4.8); Lymph % (Auto) 4.7 % (9.0-44.0); Mean Corpuscular HGB Conc 34.1 % (32.0-36.0); Mean Corpuscular Hemoglobin 35.9 pg (27.0-34.0); Mean Corpuscular Volume 105.5 fL (80.0-100.0); Mean Platelet Volume 8.1 fL (7.0-11.0); Mono # (Auto) 0.3 th/mm3 (0.0-0.9); Mono % (Auto) 3.8 % (0.0-8.0); Neut # (Auto) 7.5 th/mm3 (1.8-7.7); Neut % (Auto) 91.4 % (16.0-70.0); Platelet Count 122 th/mm3 (150-450); Red Blood Count 3.33 mil/mm3 (4.00-5.30); Red Cell Distribution Width 20.2 % (11.6-17.2); White Blood Count 8.2 th/mm3 (4.0-11.0)
[2018-01-30 04:18] LABS: Lymphocytes 1 % (9-44); Platelet Morphology Normal (Normal)
[2018-01-30 04:23] LABS: Alanine Aminotransferase 368 U/L (10-53); Albumin 1.8 g/dL (3.4-5.0); Alkaline Phosphatase 195 U/L (45-117); Anion Gap 7 meq/L (5-15); Aspartate Aminotransferase 687 U/L (15-37); Blood Urea Nitrogen 16 mg/dL (7-18); Calcium 5.9 mg/dL (8.5-10.1); Carbon Dioxide 19.4 meq/L (21.0-32.0); Chloride 122 meq/L (98-107); Glomerular Filtration Rate Greater Than 89 mL/min (>89); Glucose,Random 146 mg/dL (74-106); Magnesium 2.3 mg/dL (1.5-2.5); Phosphorus 0.9 mg/dL (2.5-4.9); Potassium 3.9 meq/L (3.5-5.1); Sodium 148 meq/L (136-145); Total Protein 4.9 g/dL (6.4-8.2)
[2018-01-30 04:31] LABS: ABG Base Excess -8.7 mmol/L (-2-2); ABG PCO2 33 mmHg (38-42); ABG PO2 137 mmHG (61-120)
[2018-01-30] MEDS: Midazolam 100 MG/100 ML Inj 100 MG/100 ML BAG IV.CONT PRN ×3 (04:36→23:40)
[2018-01-30] MEDS: Potassium Phosphate 500 MG Soluble Tablet PO PRN (04:46)
[2018-01-30] MEDS: MethylPREDNISolone Sod Succinate Inj 40 MG/ML Vial IV.PUSH SCH (05:02)
[2018-01-30] MEDS: fentaNYL 10 mcg/mL Premix Drip 2,500 MCG/250 ML BAG IV.SIG PRN (08:27)
[2018-01-30] MEDS: Famotidine PF Inj 20 MG/2 ML Vial IV.PUSH SCH ×3 (08:27→20:15)
[2018-01-30] MEDS: Cisatracurium Inj 100 MG in Sodium Chlor 0.9% Inj 240 ML IV.CONT PRN (08:27)
[2018-01-30] MEDS: Chlorhexidine 0.12% Oral Kit 15 ML UDC OROPHARYNG SCH ×2 (08:28→19:32)
[2018-01-30] MEDS: Vancomycin Inj 1,250 MG in Sodium Chlor 0.9% Inj 250 ML IV.SIG SCH ×2 (08:45→20:41)
--- NOTE | 2018-01-30 08:49 | XR ---
EXAM DATE: 01/30/2018 8:00 AM EST AGE/SEX: 32 years / Female INDICATIONS: Respiratory failure. CLINICAL DATA: This is the patient's subsequent encounter. Patient reports that signs and symptoms h ave been present for 2 days and indicates a pain score of Nonresponsive. MEDICAL/SURGICAL HISTORY: Non-responsive. Non-responsive. COMPARISON: C, CHEST 1V SINGLE AP, 01/29/2018. . FINDINGS: The patient is intubated with the ET tube in a high position of the thoracic inlet 6.5 cm from the ca britni. There is a feeding tube traversing the esophagus and being directed into the stomach. Tip is no t seen on this chest x-ray. There is a right internal jugular central line placed with the tip overly ing the SVC. The heart size is normal. The lungs are essentially diffuse alveolar consolidation. The costophrenic angles are grossly clear. CONCLUSION: Diffuse alveolar consolidation likely related to diffuse processes such as diffuse edema or infection . ET tube in a somewhat high position 6.5 cm from the natalie. Electronically signed by: Lv Tesfaye MD Board Certified Radiologist 01/30/2018 8:47 AM EST
[2018-01-30] MEDS ORDERED: Dextrose 50% in Water 50 ML Vial IV.PUSH PRN (10:35)
[2018-01-30] MEDS: Sodium Chloride 0.45 % Inj 1,000 ML IV.CONT SCH ×2 (11:11→20:40)
[2018-01-30] MEDS: Insulin NovoLIN Regular Correctional Sugar Inj SQ SCH ×3 (13:22→20:14)
[2018-01-30] MEDS: MethylPREDNISolone Sod Succinate Inj 125 MG/2 ML Vial IV.PUSH SCH ×2 (13:24→20:15)
--- NOTE | 2018-01-30 13:28 | P.PNCC ---
Subjective Subjective Remarks/Hospital Course: 01/30: The patient's oxygenation moved by midday 01/29, and the patient was transferred via ambulance to [facility]. On her arrival the patient had a CVL placed, echo performed peer and the patient was placed on prone bed for prone positioning. Upon prone positioning, the patient's O2 saturation improved. FiO2 currently is at 60% when patient is in prone position with O2 sat of 100%. The patient remains deeply sedated with neuromuscular blockade Nemex for prone positioning. Urine output is equivalent to 1 cc/kg/h the patient was noted to have a metabolic acidosis this a.m., 50 mEq of sodium bicarbonate was given, IV fluids changed to one half normal saline at 100 cc/ hour. Noted lactic acidemia now resolved. One bottle blood culture showed gram -positive cocci. Discussed with patient's mother and permission granted to obtain HIV labs, deemed medically necessary per RAJ Carballo. Objective Vital Signs / I&O: Vital Signs 01/29/18 14:00 01/29/18 14:08 01/29/18 15:00 Temperature Pulse Rate 118 H 91 H Respiratory Rate 20 22 Blood Pressure Pulse Oximetry 100 01/29/18 15:33 01/29/18 16:00 01/29/18 17:00 Temperature 100 F H Pulse Rate 90 101 H Respiratory Rate 22 22 22 Blood Pressure Pulse Oximetry 100 100 100 01/29/18 18:00 01/29/18 18:47 01/29/18 19:00 Temperature Pulse Rate 83 82 83 Respiratory Rate 22 Blood Pressure 106/61 Pulse Oximetry 100 100 100 01/29/18 19:15 01/29/18 19:30 01/29/18 19:45 Temperature Pulse Rate 83 84 89 Respiratory Rate Blood Pressure 105/61 105/61 103/60 Pulse Oximetry 100 100 100 01/29/18 20:00 01/29/18 20:15 01/29/18 20:30 Temperature 98.4 F Pulse Rate 90 92 H 92 H Respiratory Rate Blood Pressure 96/57 L 96/55 L 92/54 L Pulse Oximetry 100 100 100 01/29/18 20:45 01/29/18 21:00 01/29/18 21:14 Temperature Pulse Rate 93 H 90 88 Respiratory Rate Blood Pressure 95/53 L 98/57 L Pulse Oximetry 100 100 100 01/29/18 21:15 01/29/18 21:29 01/29/18 21:30 Temperature Pulse Rate 88 89 87 Respiratory Rate 22 Blood Pressure 99/54 L 98/53 L Pulse Oximetry 100 100 100 01/29/18 21:45 01/29/18 22:00 01/29/18 22:15 Temperature Pulse Rate 89 87 89 Respiratory Rate Blood Pressure 105/59 L 104/58 L 106/59 L Pulse Oximetry 100 100 100 01/29/18 22:30 01/29/18 22:45 01/29/18 23:00 Temperature Pulse Rate 88 87 86 Respiratory Rate Blood Pressure 105/58 L 99/54 L 98/53 L Pulse Oximetry 100 100 100 01/29/18 23:15 01/29/18 23:30 01/29/18 23:45 Temperature Pulse Rate 86 87 85 Respiratory Rate Blood Pressure 95/51 L 93/50 L 101/57 L Pulse Oximetry 100 100 100 01/30/18 00:00 01/30/18 00:02 01/30/18 00:15 Temperature 99.8 F H Pulse Rate 85 85 84 Respiratory Rate 22 22 Blood Pressure 103/57 L 106/61 Pulse Oximetry 100 100 01/30/18 00:30 01/30/18 00:45 01/30/18 01:00 Temperature Pulse Rate 87 87 86 Respiratory Rate Blood Pressure 102/58 L 99/54 L 98/54 L Pulse Oximetry 100 100 100 01/30/18 01:15 01/30/18 01:30 01/30/18 01:45 Temperature Pulse Rate 85 84 84 Respiratory Rate Blood Pressure 96/51 L 97/55 L 100/58 L Pulse Oximetry 100 100 100 01/30/18 01:59 01/30/18 02:00 01/30/18 02:15 Temperature 98.7 F Pulse Rate 90 90 82 Respiratory Rate Blood Pressure 94/55 L 103/57 L Pulse Oximetry 100 100 100 01/30/18 02:30 01/30/18 02:45 01/30/18 03:00 Temperature Pulse Rate 83 81 81 Respiratory Rate Blood Pressure 106/59 L 105/56 L 104/58 L Pulse Oximetry 100 100 100 01/30/18 03:15 01/30/18 03:30 01/30/18 03:45 Temperature Pulse Rate 86 85 85 Respiratory Rate Blood Pressure 89/53 L 88/50 L 92/53 L Pulse Oximetry 100 100 99 01/30/18 03:54 01/30/18 04:00 01/30/18 04:15 Temperature 99.3 F Pulse Rate 78 79 80 Respiratory Rate 22 Blood Pressure 101/55 L 105/60 Pulse Oximetry 100 100 100 01/30/18 04:30 01/30/18 04:45 01/30/18 04:59 Temperature Pulse Rate 82 89 87 Respiratory Rate Blood Pressure 102/56 L 92/55 L Pulse Oximetry 100 99 100 01/30/18 05:00 01/30/18 05:15 01/30/18 05:17 Temperature Pulse Rate 86 88 85 Respiratory Rate Blood Pressure 94/50 L 87/51 L 89/52 L Pulse Oximetry 100 99 99 01/30/18 05:30 01/30/18 05:45 01/30/18 06:00 Temperature Pulse Rate 85 86 85 Respiratory Rate Blood Pressure 88/51 L 93/52 L 92/53 L Pulse Oximetry 99 99 99 01/30/18 06:15 01/30/18 06:30 01/30/18 06:45 Temperature Pulse Rate 86 86 84 Respiratory Rate 22 22 Blood Pressure 95/50 L 97/55 L 92/55 L Pulse Oximetry 99 100 100 01/30/18 07:00 01/30/18 07:15 01/30/18 07:30 Temperature Pulse Rate 80 81 83 Respiratory Rate 22 22 22 Blood Pressure 93/54 L 88/49 L 89/51 L Pulse Oximetry 100 100 100 01/30/18 07:45 01/30/18 07:58 01/30/18 08:00 Temperature 96.7 F L Pulse Rate 79 Respiratory Rate 22 Blood Pressure 92/55 L 90/52 L Pulse Oximetry 93 L 100 100 01/30/18 08:15 01/30/18 08:30 01/30/18 08:45 Temperature Pulse Rate 79 79 79 Respiratory Rate 22 22 22 Blood Pressure 93/54 L 93/54 L 96/55 L Pulse Oximetry 100 100 100 01/30/18 09:00 01/30/18 09:07 01/30/18 09:15 Temperature Pulse Rate 80 79 Respiratory Rate 22 22 22 Blood Pressure 93/50 L 94/51 L Pulse Oximetry 100 100 100 01/30/18 09:30 01/30/18 09:45 01/30/18 10:00 Temperature Pulse Rate 79 79 80 Respiratory Rate 22 Blood Pressure 96/51 L 97/56 L 100/58 L Pulse Oximetry 100 100 100 01/30/18 10:15 01/30/18 10:30 01/30/18 10:45 Temperature Pulse Rate 81 76 80 Respiratory Rate 22 Blood Pressure 102/55 L 97/55 L 89/50 L Pulse Oximetry 100 96 100 01/30/18 11:00 01/30/18 11:15 01/30/18 11:30 Temperature Pulse Rate 81 81 78 Respiratory Rate 22 Blood Pressure 90/52 L 88/52 L 89/53 L Pulse Oximetry 100 100 100 01/30/18 11:45 01/30/18 11:52 01/30/18 12:00 Temperature 98 F Pulse Rate 78 76 Respiratory Rate Blood Pressure 87/52 L 87/52 L Pulse Oximetry 100 99 99 Intake & Output 01/29/18 01/30/18 01/30/18 18:59 06:59 18:59 Intake Total 2662.5 / 2662.5 3991 / 3991 987.5 / 987.5 Output Total 700 / 700 575 / 575 268 / 268 Balance 1962.5 / 1962.5 3416 / 3416 719.5 / 719.5 Intake: IV 2662.5 / 2662.5 3991 / 3991 987.5 / 987.5 Versed Inj 100 mg In 100 ml @ 2 100 / 100 100 / 100 MG/HR 2 mls/hr IV.CONT TITRATE PRN Rx#:[id number] Neosynephrine Inj 40 MG In D5W 496 / 496 50 / 50 Inj 496 ML @ 40 MCG/MIN 30 mls/ hr IV.CONT TITRATE PRN Rx#: [id number] Diprivan 1000 mg/100 ml Inj 1, 200 / 200 100 / 100 000 mg In 100 ml @ 5 MCG/KG/MIN 1.998 mls/hr IV.CONT TITRATE PRN Rx#:[id number] NS Inj 1,000 ML @ 125 mls/hr IV 1000 / 1000 2000 / 1999 325 / 325 .CONT .Q8H BENOIT Rx#:[id number] Azithromycin Inj 500 MG In NS 265 / 265 Inj 250 ML @ 250 mls/hr IV.SIG Q24H BENOIT Rx#:[id number] Maxipime Inj 2,000 MG In NS Inj 100 / 100 200 / 200 100 / 100 100 ML @ 200 mls/hr IV.SIG Q8H BENOIT Rx#:[id number] Magnesium Sulfate Inj 2 GM In 100 / 100 NS Inj 96 ML @ 50 mls/hr IV.SIG UNSCH PRN Rx#:[id number] Pentam Inj 250 MG In D5W Inj 250 / 250 250 ML @ 250 mls/hr IV.SIG Q24H BENOIT Rx#:[id number] KCl 40 mEq Premix Inj 40 meq In 200 / 200 100 ml @ 25 mls/hr IV.SIG Q2H PRN Rx#:[id number] NS Inj 1,000 ML @ 1000 mls/hr 1000 / 1000 IV.SIG BOLUS BENOIT Rx#:[id number] Vancomycin Inj 1,250 MG In NS 262.5 / 262.5 280 / 280 262.5 / 262.5 Inj 250 ML @ 250 mls/hr IV.SIG Q12H BENOIT Rx#:[id number] fentaNYL 10 mcg/mL Premix Drip 250 / 250 2,500 mcg In 250 ml @ 50 MCG/HR 5 mls/hr IV.SIG TITRATE PRN Rx #:[id number] Output: Urine Amount (Catheter) 700 / 700 575 / 575 268 / 268 Indwelling Urethral Catheter 700 / 700 575 / 575 268 / 268 Other: Date of Last Bowel Movement 01/28/18 01/29/18 Result Diagrams: 01/31/18 03:30 01/31/18 03:30 Other Results: Laboratory Results CBC w Diff Slide review pending 01/29/18 04:25 WBC 8.2 th/mm3 (4.0-11.0) 01/30/18 03:40 RBC 3.33 mil/mm3 (4.00-5.30) L 01/30/18 03:40 Hgb 12.0 gm/dL (11.6-15.3) 01/30/18 03:40 Hct 35.1 % (35.0-46.0) 01/30/18 03:40 MCV 105.5 fL (80.0-100.0) H 01/30/18 03:40 MCH 35.9 pg (27.0-34.0) H 01/30/18 03:40 MCHC 34.1 % (32.0-36.0) 01/30/18 03:40 RDW 20.2 % (11.6-17.2) H 01/30/18 03:40 Plt Count 122 th/mm3 (150-450) L 01/30/18 03:40 MPV 8.1 fL (7.0-11.0) 01/30/18 03:40 Prelim Diff (Auto) Slide review pending 01/30/18 03:40 Neut % (Auto) 91.4 % (16.0-70.0) H 01/30/18 03:40 Lymph % (Auto) 4.7 % (9.0-44.0) L 01/30/18 03:40 [place] % (Auto) 3.8 % (0.0-8.0) 01/30/18 03:40 Eos % (Auto) 0.0 % (0.0-4.0) 01/30/18 03:40 Baso % (Auto) 0.1 % (0.0-2.0) 01/30/18 03:40 Neut # (Auto) 7.5 th/mm3 (1.8-7.7) 01/30/18 03:40 Lymph # (Auto) 0.4 th/mm3 (1.0-4.8) L 01/30/18 03:40 [place] # (Auto) 0.3 th/mm3 (0.0-0.9) 01/30/18 03:40 Eos # (Auto) 0.0 th/mm3 (0.0-0.4) 01/30/18 03:40 Baso # (Auto) 0.0 th/mm3 (0.0-0.2) 01/30/18 03:40 WBC Differential Manual diff final 01/30/18 03:40 Seg Neuts % (Manual) 88 % (16-70) H 01/30/18 03:40 Band Neuts % (Manual) 11 % (0-6) H 01/30/18 03:40 Lymphocytes % (Manual) 1 % (9-44) L 01/30/18 03:40 Monocytes % (Manual) 1 % (0-8) 01/29/18 04:25 Metamyelocytes % (Man) 6 % (0-1) H 01/29/18 04:25 Abs Neuts (Manual) 8.1 th/mm3 (1.8-7.7) H 01/30/18 03:40 Differential Comment . 01/30/18 03:40 Platelet Estimate Low (Normal) L 01/30/18 03:40 Platelet Morphology Normal (Normal) 01/30/18 03:40 RBC Morphology Normal (Normal) 01/29/18 04:25 Puncture Site Art line 01/30/18 04:14 Patient Temperature 98.6 01/30/18 04:14 O2 Saturation 96 % (90-100) 01/30/18 04:14 ABG pH 7.32 (7.380-7.420) L 01/30/18 04:14 ABG pCO2 33 mmHg (38-42) L 01/30/18 04:14 ABG pO2 137 mmHG (61-120) H 01/30/18 04:14 ABG HCO3 16 mmol/L (22-26) L* 01/30/18 04:14 ABG O2 Content 16.4 Vol % (12.0-20.0) 01/30/18 04:14 ABG Base Excess -8.7 mmol/L (-2-2) L 01/30/18 04:14 ABG Methemoglobin 1.7 % (0-2) 01/30/18 04:14 Alex Test Present 01/29/18 14:00 Hemoglobin 12.0 G/DL (12.0-16.0) 01/30/18 04:14 Carboxyhemoglobin 0.4 % (0-4) 01/30/18 04:14 O2 Delivery Device Ventilator 01/30/18 04:14 Vent Setting 22/500/peep12/it1.2 01/30/18 04:14 Inspired O2 60 % 01/30/18 04:14 Critical Value Yes 01/30/18 04:14 Sodium 148 meq/L (136-145) H 01/30/18 03:40 Potassium 3.9 meq/L (3.5-5.1) D 01/30/18 03:40 Chloride 122 meq/L (98-107) H 01/30/18 03:40 Carbon Dioxide 19.4 meq/L (21.0-32.0) L 01/30/18 03:40 Anion Gap 7 meq/L (5-15) 01/30/18 03:40 BUN 16 mg/dL (7-18) 01/30/18 03:40 Creatinine 0.58 mg/dL (0.50-1.00) 01/30/18 03:40 Estimated GFR Greater than 89 mL/min (>89) 01/30/18 03:40 POC Glucose 103 mg/dl (68-110) 01/30/18 12:00 Random Glucose 146 mg/dL (74-106) H 01/30/18 03:40 Lactic Acid 1.3 mmol/L (0.4-2.0) 01/30/18 03:40 Calcium 5.9 mg/dL (8.5-10.1) L* 01/30/18 03:40 Calcium Adj for Albumin 7.7 mg/dL (8.5-10.1) L 01/30/18 03:40 Phosphorus 0.9 mg/dL (2.5-4.9) L 01/30/18 03:40 Magnesium 2.3 mg/dL (1.5-2.5) D 01/30/18 03:40 Total Bilirubin 1.0 mg/dL (0.2-1.0) 01/30/18 03:40 AST 687 U/L (15-37) H 01/30/18 03:40 ALT 368 U/L (10-53) H 01/30/18 03:40 Alkaline Phosphatase 195 U/L (45-117) H 01/30/18 03:40 Lactate Dehydrogenase 1296 U/L (84-246) H 01/29/18 13:02 B-Natriuretic Peptide 182 pg/mL (0-100) H 01/29/18 04:25 Total Protein 4.9 g/dL (6.4-8.2) L 01/30/18 03:40 Albumin 1.8 g/dL (3.4-5.0) L 01/30/18 03:40 Beta HCG, Quant Less than 1 mIU/mL (0-5) 01/29/18 04:25 Urine Color Yellow (Yellw/Straw) 01/28/18 18:10 Urine Clarity Clear (Clear) 01/28/18 18:10 Urine pH 6.0 (5.0-8.5) 01/28/18 18:10 Ur Specific [place] 1.010 (1.002-1.035) 01/28/18 18:10 Urine Protein Trace mg/dL (Neg-Trace) 01/28/18 18:10 Urine Glucose (UA) Negative mg/dL (Negative) 01/28/18 18:10 Urine Ketones Negative mg/dL (Negative) 01/28/18 18:10 Urine Occult Blood Negative (Negative) 01/28/18 18:10 Urine Nitrate Negative (Negative) 01/28/18 18:10 Urine Bilirubin Negative (Negative) 01/28/18 18:10 Urine Urobilinogen 1.0 mg/dL (Less than 2) 01/28/18 18:10 Ur Leukocyte Esterase Negative (Negative) 01/28/18 18:10 Urine WBC 0-5 /hpf (0-5) 01/28/18 18:10 Ur Squamous Epith Cells 0-5 /hpf (0-5) 01/28/18 18:10 Urine Bacteria Rare /hpf (None) H 01/28/18 18:10 Urine Mucus Rare /lpf (Occasional) H 01/28/18 18:10 Micro UA Comment Culture not ind 01/28/18 18:10 Ur Microscopic Review Microscopic reviewed 01/28/18 18:10 Urine Culture Comments Culture not ind 01/28/18 18:10 Urine Opiates Screen Neg (Neg) 01/28/18 18:10 Ur Barbiturates Screen Neg (Neg) 01/28/18 18:10 Ur Amphetamines Screen Neg (Neg) 01/28/18 18:10 U Benzodiazepines Scrn Neg (Neg) 01/28/18 18:10 Urine Cocaine Screen Pos (Neg) H 01/28/18 18:10 U Cannabinoids Screen Neg (Neg) 01/28/18 18:10 Hepatitis A IgM Ab Nonreactive (Nonreactive) 01/29/18 09:22 Hep Bs Antigen Nonreactive (Nonreactive) 01/29/18 09:22 Hep B Core IgM Ab Nonreactive (Nonreactive) 01/29/18 09:22 Hep C IgG Ab Reactive (Nonreactive) H 01/29/18 09:[address] 01/28/18 18:20 CONCLUSION: Extensive bilateral airspace disease Abdomen X-Ray 01/29/18 00:00 CONCLUSION: Doppler feeding tube in good position in the distal stomach. Chest X-Ray 01/30/18 08:00 CONCLUSION: Diffuse alveolar consolidation likely related to diffuse processes such as diffuse edema or infection. ET tube in a somewhat high position 6.5 cm from the natalie. Objective Remarks: GENERAL: A well-developed well-nourished female deep sedation and neuromuscular blockade currently intubated in prone position SKIN: Warm and dry. HEAD: Atraumatic. Normocephalic. EYES: Pupils equal and round. No scleral icterus. No injection or drainage. ENT: No nasal bleeding or discharge. Mucous membranes pink and moist. NECK: Trachea midline. No JVD. CARDIOVASCULAR: Normal rate, regular rhythm. RESPIRATORY: No accessory muscle use. Coarse rhonchi. Breath sounds equal bilaterally. Bilateral chest excursion GASTROINTESTINAL: Abdomen soft, non-tender, nondistended. No guarding. MUSCULOSKELETAL: Extremities without clubbing, cyanosis, or edema. No obvious deformities. NEUROLOGICAL: Intubated and deeply sedated with neuromuscular blockade. Previously immediately after intubation on 01/28 patient was awake, alert following commands nodding head to yes and no questions ,no gross focal/sensory deficits at that time. Followed commands in all 4 extremities. Patient then placed on deep sedation in order to maintain ventilator synchrony and optimization of oxygenation. Assessment and Plan - Problem List (1) Acute respiratory failure with hypoxia and hypercarbia Code(s): J96.01 - Acute respiratory failure with hypoxia; J96.02 - Acute respiratory failure with hypercapnia Status: Acute (2) Hepatitis Code(s): K75.9 - Inflammatory liver disease, unspecified Status: Acute (3) Bilateral pneumonia Code(s): J18.9 - Pneumonia, unspecified organism Status: Acute (4) Sepsis Code(s): A41.9 - Sepsis, unspecified organism Status: Acute (5) Hypoxia Code(s): R09.02 - Hypoxemia Status: Acute (6) Leukocytosis Code(s): D72.829 - Elevated white blood cell count, unspecified Status: Acute (7) Hyperglycemia Code(s): R73.9 - Hyperglycemia, unspecified Status: Acute - Assessment and Plan Plan: Plan by systems: Neurologic: Anxiety disorder Borderline personality disorder Substance use disorder Maintain Versed, fentanyl, and propofol infusions for analgesia and sedation, to maintain ventilator synchrony We will avoid acetaminophen 650 mg every 6 hours as needed for temperature greater than 101.0, secondary to elevated liver enzymes utilize cooling blanket if required No Daily sedation vacation at this time secondary to increased FiO2 requirements in order to maintain oxygenation. Immediately post intubation patient was awake GCS 11 T 01/28 urine drug screen-positive for cocaine Sedation Versed 10mg/hr, Fent 50 mcgs/hr, Diprivan 25 mcgs/kg/min, neuromuscular blockade Nimbex infusion to maintain TOF 1/4 Respiratory: Acute hypoxemic and hypercarbic respiratory failure Bilateral pneumonia Tobacco use disorder ARDS Vent settings currently ME VC/AC, 500/22/+12/with FIO2 100% Continue to monitor serial chest Xrays and ABG's methylprednisolone 125mg x 1 dose , continued 60 mg every 8 hrs 01/28 Sputum culture- NGTD Legionella, pneumococcal urine antigens-neg Influenza antigens A/Bneg 01/29-intubated 7.5 ETT 22 at the lip 01/28chest x-ray widespread diffuse airspace disease 01/29 chest [id number] inflammatory response Methylprednisolone 125 mg IV x1, methylprednisolone 60 mg every 8hr Pulmonology has been consulted previously prior to intubation following along Cardiovascular: Sinus tachycardia- resolved Maintain MAP > 65mmHg arterial line an CVL right IJ-placed 01/28 01/28 Echo EF 40-45%, moderately dilated left ventricle, LAD infarct vs. Taktsubo cardiomyopathy, no vegetations noted PAP 42 Renal: Maintain Garcia to to assess volume status-currently 1 cc/kilo/hour -- Strict I/Os FEN/GI: Hypo phosphatemia Hepatitis C Transaminitis Metabolic acidosis Maintain n.p.o. status for now [place] in situ Monitor CMP Electrolyte replacement per ICU protocol Change IV fluids to one half normal saline at 100 cc/hr Sodium bicarbonate 50 mEq IV x1 dose Heme/ID: Pneumonia Severe sepsis Leukocytosis-resolved ARDS 01/28-Legionella, mycoplasma, pneumococcal antigens-negative 01/28 sputum culture-negative Monitor CBC Patient initiated on azithromycin 500 mg every 24, and cefepime 2 g every 8hr, vancomycin (day 3) ID consulted-Dr. Carballo following 01/29 Lactate level -cleared 01/28 Blood [id number] cocci Follow-up HIV, CD4 levels Endocrine: Hyperglycemia of critical illness Glucose monitoring per ICU protocol 4 hours-post regimen -- SSI Prophylaxis: GI Prophylaxis famotidine DVT Prophylaxis -- SCDs Lines: Peripheral IVs x3. Arterialline left radial , R IJ CVL 01/29 Dispo: My billing statement This patient remains critically ill with one or more organ systems which are or may become a threat to life. I have spent in excess of 42 minutes discontinuously in the care and management of this patient. This time is exclusive of procedures, and includes, but is not limited to, evaluation of the patient, review of the medical record, discussions with family, consultants, nursing staff, or respiratory therapy, and documentation in the medical record. Code Status: Full Discussed Condition With: Patient's mother and family at bedside, UNCRATER at bedside. Medical status update provided. Consent for HIV testing obtained from patient's mother, all questions answered (3) Bilateral pneumonia Qualifiers: Pneumonia type: due to unspecified organism Lung location: unspecified part of lung Qualified Code(s): J18.9 - Pneumonia, unspecified organism (4) Sepsis Qualifiers: Sepsis type: sepsis due to unspecified organism Qualified Code(s): A41.9 - Sepsis, unspecified organism (6) Leukocytosis Qualifiers: Leukocytosis type: unspecified Qualified Code(s): D72.829 - Elevated white blood cell count, unspecified
[2018-01-30 16:46] LABS: ABG Base Excess -7.2 mmol/L (-2-2); ABG PCO2 31 mmHg (38-42); ABG PO2 118 mmHG (61-120)
[2018-01-30] MEDS: Azithromycin Inj 500 MG in Sodium Chlor 0.9% Inj 250 ML IV.SIG SCH (19:32)
[2018-01-30] MEDS ORDERED: Pharmacy Ordered Lab Info OTHER ONE (20:45)
[2018-01-30] MEDS: Enoxaparin Inj 40 MG/0.4 ML Syringe SQ SCH (21:08)
[2018-01-31] MEDS: Chlorhexidine Gluconate 2% 1 Pack (2 Cloths) TOPICAL SCH (03:05)
[2018-01-31] MEDS: Oral Hygiene Kit OROPHARYNG SCH ×3 (03:06→15:32)
[2018-01-31 03:45] LABS: Baso % (Auto) 0.1 % (0.0-2.0); Hematocrit 32.8 % (35.0-46.0); Hemoglobin 11.1 gm/dL (11.6-15.3); Lymph # (Auto) 0.4 th/mm3 (1.0-4.8); Lymph % (Auto) 5.4 % (9.0-44.0); Mean Corpuscular HGB Conc 33.9 % (32.0-36.0); Mean Corpuscular Hemoglobin 35.7 pg (27.0-34.0); Mean Corpuscular Volume 105.3 fL (80.0-100.0); Mean Platelet Volume 8.6 fL (7.0-11.0); Mono # (Auto) 0.5 th/mm3 (0.0-0.9); Mono % (Auto) 6.7 % (0.0-8.0); Neut # (Auto) 6.7 th/mm3 (1.8-7.7); Neut % (Auto) 87.8 % (16.0-70.0); Platelet Count 103 th/mm3 (150-450); Red Blood Count 3.12 mil/mm3 (4.00-5.30); Red Cell Distribution Width 19.9 % (11.6-17.2); White Blood Count 7.7 th/mm3 (4.0-11.0)
[2018-01-31] MEDS: Insulin NovoLIN Regular Correctional Sugar Inj SQ SCH ×5 (03:54→20:05)
[2018-01-31 04:08] LABS: Alanine Aminotransferase 255 U/L (10-53); Albumin 1.6 g/dL (3.4-5.0); Alkaline Phosphatase 164 U/L (45-117); Anion Gap 12 meq/L (5-15); Aspartate Aminotransferase 250 U/L (15-37); Blood Urea Nitrogen 24 mg/dL (7-18); Calcium 5.7 mg/dL (8.5-10.1); Carbon Dioxide 17.9 meq/L (21.0-32.0); Chloride 119 meq/L (98-107); Glomerular Filtration Rate Greater Than 89 mL/min (>89); Glucose,Random 139 mg/dL (74-106); Phosphorus 1.4 mg/dL (2.5-4.9); Potassium 3.6 meq/L (3.5-5.1); Sodium 149 meq/L (136-145)
[2018-01-31] MEDS: MethylPREDNISolone Sod Succinate Inj 125 MG/2 ML Vial IV.PUSH SCH ×3 (04:09→20:05)
[2018-01-31] MEDS: Potassium Phosphate 500 MG Soluble Tablet PO PRN (04:28)
[2018-01-31 04:31] LABS: ABG Base Excess -9.6 mmol/L (-2-2); ABG PCO2 30 mmHg (38-42); ABG PO2 129 mmHG (61-120)
[2018-01-31 05:18] LABS: Lymphocytes 2 % (9-44); Myelocytes 1 % (0-0); Platelet Morphology Normal (Normal)
[2018-01-31] MEDS: Sodium Chloride 0.45 % Inj 1,000 ML IV.CONT SCH ×3 (06:43→16:28)
[2018-01-31] MEDS: Propofol 1000 mg/100 ml Inj 1,000 MG/100 ML BOTTLE IV.CONT PRN ×2 (06:50→12:56)
[2018-01-31] MEDS: Chlorhexidine 0.12% Oral Kit 15 ML UDC OROPHARYNG SCH ×2 (08:02→20:05)
[2018-01-31] MEDS: Vancomycin Inj 1,250 MG in Sodium Chlor 0.9% Inj 250 ML IV.SIG SCH ×2 (08:02→21:14)
[2018-01-31] MEDS: Famotidine PF Inj 20 MG/2 ML Vial IV.PUSH SCH ×2 (08:02→20:05)
--- NOTE | 2018-01-31 09:22 | XR ---
EXAM DATE: 01/31/2018 9:18 AM EST AGE/SEX: 32 years / Female INDICATIONS: Shortness of breath. CLINICAL DATA: This is the patient's initial encounter. Patient reports that signs and symptoms have been present for 1 day and indicates a pain score of Nonresponsive. MEDICAL/SURGICAL HISTORY: Non-responsive. Non-responsive. COMPARISON: C, CHEST 1V SINGLE AP, 01/30/2018. . FINDINGS: The patient is intubated with the ET tube 1.9 cm from the natalie. There is a right internal jugular c entral line placed with tip overlying the SVC. The heart size is normal. There is diffuse mixed inter stitial and alveolar consolidation being worse on the right. Significant effusions are not seen. Ther e is an NG tube or feeding tube directed into the stomach. CONCLUSION: Diffuse consolidation being worse on the right. This likely is related to diffuse processes such as e jose or infection. There may have been slight improvement when compared to the prior exam. Electronically signed by: Lv Tesfaye MD Board Certified Radiologist 01/31/2018 9:21 AM EST
[2018-01-31] MEDS: Midazolam 100 MG/100 ML Inj 100 MG/100 ML BAG IV.CONT PRN ×2 (09:41→18:13)
--- NOTE | 2018-01-31 09:58 | P.PNCC ---
Subjective Subjective Remarks/Hospital Course: 01/30: The patient's oxygenation moved by midday 01/29, and the patient was transferred via ambulance to [facility]. On her arrival the patient had a CVL placed, echo performed peer and the patient was placed on prone bed for prone positioning. Upon prone positioning, the patient's O2 saturation improved. FiO2 currently is at 60% when patient is in prone position with O2 sat of 100%. The patient remains deeply sedated with neuromuscular blockade Nemex for prone positioning. Urine output is equivalent to 1 cc/kg/h the patient was noted to have a metabolic acidosis this a.m., 50 mEq of sodium bicarbonate was given, IV fluids changed to one half normal saline at 100 cc/ hour. Noted lactic acidemia now resolved. One bottle blood culture showed gram -positive cocci. Discussed with patient's mother and permission granted to obtain HIV labs, deemed medically necessary per RAJ Carballo. 01/31: Decreasing FiO2 requirements at this time. Chest x-ray suggestive of interstitial edema, Lasix 40 mg x1 dose provided. IV fluids decreased to 42 cc/ hr . Secondary to prone positioning StatLock removed and central line sutured in place, to prevent possible dislodgment and prone position. Cultures revealed sputum MRSA, and blood gram-positive cocci. HIV testing labs negative. Objective Vital Signs / I&O: Vital Signs 01/30/18 10:00 01/30/18 10:15 01/30/18 10:30 Temperature Pulse Rate 80 81 76 Respiratory Rate 22 22 Blood Pressure 100/58 L 102/55 L 97/55 L Pulse Oximetry 100 100 96 01/30/18 10:45 01/30/18 11:00 01/30/18 11:15 Temperature Pulse Rate 80 81 81 Respiratory Rate 22 Blood Pressure 89/50 L 90/52 L 88/52 L Pulse Oximetry 100 100 100 01/30/18 11:30 01/30/18 11:45 01/30/18 11:52 Temperature Pulse Rate 78 78 Respiratory Rate 22 22 Blood Pressure 89/53 L 87/52 L Pulse Oximetry 100 100 99 01/30/18 12:00 01/30/18 12:15 01/30/18 12:30 Temperature 98 F Pulse Rate 76 79 80 Respiratory Rate 22 Blood Pressure 87/52 L 89/52 L 89/52 L Pulse Oximetry 99 99 100 01/30/18 12:45 01/30/18 13:00 01/30/18 13:15 Temperature Pulse Rate 78 79 78 Respiratory Rate 22 22 22 Blood Pressure 92/53 L 95/54 L 93/54 L Pulse Oximetry 100 100 100 01/30/18 13:30 01/30/18 13:45 01/30/18 14:00 Temperature Pulse Rate 78 77 78 Respiratory Rate 22 22 22 Blood Pressure 92/54 L 90/53 L 92/54 L Pulse Oximetry 100 100 100 01/30/18 14:15 01/30/18 14:30 01/30/18 14:45 Temperature Pulse Rate 77 80 83 Respiratory Rate 22 22 22 Blood Pressure 95/53 L 95/54 L 101/55 L Pulse Oximetry 100 100 100 01/30/18 15:00 01/30/18 15:15 01/30/18 15:30 Temperature Pulse Rate 83 83 81 Respiratory Rate 22 22 22 Blood Pressure 103/56 L 102/59 L 99/54 L Pulse Oximetry 100 100 100 01/30/18 15:45 01/30/18 16:00 01/30/18 16:15 Temperature 98.0 F Pulse Rate 79 76 75 Respiratory Rate 22 22 22 Blood Pressure 95/50 L 92/53 L 95/50 L Pulse Oximetry 100 100 100 01/30/18 16:29 01/30/18 16:30 01/30/18 16:45 Temperature Pulse Rate 77 75 78 Respiratory Rate 23 22 22 Blood Pressure 95/50 L 97/55 L Pulse Oximetry 100 100 01/30/18 17:00 01/30/18 17:15 01/30/18 17:30 Temperature Pulse Rate 78 78 77 Respiratory Rate 22 22 22 Blood Pressure 96/52 L 95/54 L 94/53 L Pulse Oximetry 100 100 100 01/30/18 17:45 01/30/18 18:00 01/30/18 18:15 Temperature Pulse Rate 76 78 76 Respiratory Rate 22 22 22 Blood Pressure 87/54 L 91/54 L 96/52 L Pulse Oximetry 100 100 100 01/30/18 18:30 01/30/18 18:45 01/30/18 19:00 Temperature Pulse Rate 76 75 75 Respiratory Rate 22 22 22 Blood Pressure 97/52 L 100/59 L 100/55 L Pulse Oximetry 100 100 100 01/30/18 19:15 01/30/18 19:30 01/30/18 19:40 Temperature Pulse Rate 74 75 75 Respiratory Rate 20 22 22 Blood Pressure 95/53 L 97/53 L Pulse Oximetry 100 100 01/30/18 19:45 01/30/18 20:00 01/30/18 20:15 Temperature 98.1 F Pulse Rate 79 85 83 Respiratory Rate 22 22 22 Blood Pressure 94/55 L 89/53 L 89/52 L Pulse Oximetry 100 100 100 01/30/18 20:30 01/30/18 20:45 01/30/18 21:00 Temperature Pulse Rate 81 81 79 Respiratory Rate 22 22 22 Blood Pressure 87/52 L 92/50 L 94/55 L Pulse Oximetry 100 100 100 01/30/18 21:15 01/30/18 21:30 01/30/18 21:45 Temperature Pulse Rate 83 82 81 Respiratory Rate 22 22 22 Blood Pressure 92/50 L 92/54 L 94/55 L Pulse Oximetry 100 100 100 01/30/18 21:59 01/30/18 22:00 01/30/18 22:15 Temperature Pulse Rate 77 75 79 Respiratory Rate 22 22 22 Blood Pressure 92/55 L 92/55 L Pulse Oximetry 100 100 100 01/30/18 22:30 01/30/18 22:45 01/30/18 23:00 Temperature Pulse Rate 80 80 80 Respiratory Rate 22 22 22 Blood Pressure 95/51 L 97/54 L 98/53 L Pulse Oximetry 100 100 100 01/30/18 23:15 01/30/18 23:30 01/30/18 23:37 Temperature Pulse Rate 80 81 83 Respiratory Rate 22 22 22 Blood Pressure 101/57 L 94/51 L Pulse Oximetry 100 100 01/30/18 23:45 01/30/18 23:46 01/31/18 00:00 Temperature 98.9 F Pulse Rate 80 89 Respiratory Rate 22 22 22 Blood Pressure 95/53 L 93/52 L Pulse Oximetry 100 100 100 01/31/18 00:15 01/31/18 00:30 01/31/18 00:45 Temperature Pulse Rate 86 86 83 Respiratory Rate 22 22 22 Blood Pressure 93/52 L 95/52 L 95/52 L Pulse Oximetry 100 100 100 01/31/18 01:00 01/31/18 01:15 01/31/18 01:30 Temperature Pulse Rate 84 83 82 Respiratory Rate 22 22 22 Blood Pressure 100/56 L 100/57 L 95/52 L Pulse Oximetry 100 100 100 01/31/18 01:45 01/31/18 02:00 01/31/18 02:15 Temperature Pulse Rate 80 79 79 Respiratory Rate 22 22 22 Blood Pressure 98/56 L 89/55 L 91/54 L Pulse Oximetry 100 100 100 01/31/18 02:30 01/31/18 02:45 01/31/18 03:00 Temperature Pulse Rate 80 76 78 Respiratory Rate 22 22 22 Blood Pressure 95/50 L 96/54 L 98/53 L Pulse Oximetry 100 100 100 01/31/18 03:15 01/31/18 03:30 01/31/18 03:45 Temperature Pulse Rate 80 77 79 Respiratory Rate 22 22 22 Blood Pressure 104/58 L 98/57 L 99/57 L Pulse Oximetry 100 100 100 01/31/18 04:00 01/31/18 04:01 01/31/18 04:15 Temperature 98.2 F Pulse Rate 76 79 Respiratory Rate 22 23 22 Blood Pressure 96/53 L 93/50 L Pulse Oximetry 100 97 100 01/31/18 04:30 01/31/18 04:45 01/31/18 05:00 Temperature Pulse Rate 82 85 84 Respiratory Rate 22 22 22 Blood Pressure 95/53 L 95/54 L 99/57 L Pulse Oximetry 100 100 100 01/31/18 05:15 01/31/18 05:30 01/31/18 05:45 Temperature Pulse Rate 84 84 84 Respiratory Rate 22 22 22 Blood Pressure 100/59 L 94/53 L 98/53 L Pulse Oximetry 100 100 100 01/31/18 05:59 01/31/18 06:00 01/31/18 06:15 Temperature Pulse Rate 83 83 83 Respiratory Rate 22 22 22 Blood Pressure 94/55 L 94/55 L Pulse Oximetry 100 100 100 01/31/18 06:30 01/31/18 06:45 01/31/18 07:00 Temperature Pulse Rate 83 82 80 Respiratory Rate 22 22 23 Blood Pressure 97/56 L 97/52 L 101/59 L Pulse Oximetry 100 100 100 01/31/18 07:15 01/31/18 07:26 01/31/18 07:30 Temperature Pulse Rate 81 80 Respiratory Rate 22 22 22 Blood Pressure 100/55 L 98/56 L Pulse Oximetry 100 100 100 01/31/18 07:39 01/31/18 07:45 01/31/18 08:00 Temperature 97.7 F Pulse Rate 82 82 Respiratory Rate 22 22 Blood Pressure 96/52 L 95/52 L Pulse Oximetry 100 100 100 01/31/18 08:15 01/31/18 08:30 01/31/18 08:37 Temperature Pulse Rate 79 79 Respiratory Rate 12 22 Blood Pressure 96/55 L 98/56 L Pulse Oximetry 100 100 100 Intake & Output 01/30/18 01/31/18 01/31/18 18:59 06:59 18:59 Intake Total 1437.5 / 1437.5 2923 / 2923 Output Total 502 / 502 372 / 372 55 / 55 Balance 935.5 / 935.5 2551 / 2551 -55 / -55 Intake: IV 1437.5 / 1437.5 2923 / 2923 Versed Inj 100 mg In 100 ml @ 2 100 / 100 100 / 100 MG/HR 2 mls/hr IV.CONT TITRATE PRN Rx#:[id number] Neosynephrine Inj 40 MG In D5W 50 / 50 Inj 496 ML @ 40 MCG/MIN 30 mls/ hr IV.CONT TITRATE PRN Rx#: [id number] Diprivan 1000 mg/100 ml Inj 1, 190 / 190 000 mg In 100 ml @ 5 MCG/KG/MIN 1.998 mls/hr IV.CONT TITRATE PRN Rx#:[id number] NS Inj 1,000 ML @ 125 mls/hr IV 325 / 325 .CONT .Q8H [facility] Rx#:[id number] 1/2 Normal Saline Inj 1,000 ML 2000 / 2000 @ 100 mls/hr IV.CONT .Q10H [facility] Rx#:[id number] Azithromycin Inj 500 MG In NS 270 / 270 Inj 250 ML @ 250 mls/hr IV.SIG Q24H [facility] Rx#:[id number] Maxipime Inj 2,000 MG In NS Inj 200 / 200 100 / 100 100 ML @ 200 mls/hr IV.SIG Q8H [facility] Rx#:[id number] Pentam Inj 250 MG In D5W Inj 250 / 250 250 ML @ 250 mls/hr IV.SIG Q24H [facility] Rx#:[id number] Vancomycin Inj 1,250 MG In NS 262.5 / 262.5 263 / 263 Inj 250 ML @ 250 mls/hr IV.SIG Q12H [facility] Rx#:[id number] fentaNYL 10 mcg/mL Premix Drip 250 / 250 2,500 mcg In 250 ml @ 50 MCG/HR 5 mls/hr IV.SIG TITRATE PRN Rx #:[id number] Output: Stool 0 / 0 Urine Amount (Catheter) 502 / 502 372 / 372 55 / 55 Indwelling Urethral Catheter 502 / 502 372 / 372 55 / 55 Result Diagrams: 01/31/18 03:30 01/31/18 03:30 Other Results: Laboratory Results CBC w Diff Slide review pending 01/29/18 04:25 WBC 7.7 th/mm3 (4.0-11.0) 01/31/18 03:30 RBC 3.12 mil/mm3 (4.00-5.30) L 01/31/18 03:30 Hgb 11.1 gm/dL (11.6-15.3) L 01/31/18 03:30 Hct 32.8 % (35.0-46.0) L 01/31/18 03:30 MCV 105.3 fL (80.0-100.0) H 01/31/18 03:30 MCH 35.7 pg (27.0-34.0) H 01/31/18 03:30 MCHC 33.9 % (32.0-36.0) 01/31/18 03:30 RDW 19.9 % (11.6-17.2) H 01/31/18 03:30 Plt Count 103 th/mm3 (150-450) L 01/31/18 03:30 MPV 8.6 fL (7.0-11.0) 01/31/18 03:30 Prelim Diff (Auto) Slide review pending 01/31/18 03:30 Neut % (Auto) 87.8 % (16.0-70.0) H 01/31/18 03:30 Lymph % (Auto) 5.4 % (9.0-44.0) L 01/31/18 03:30 [place] % (Auto) 6.7 % (0.0-8.0) 01/31/18 03:30 Eos % (Auto) 0.0 % (0.0-4.0) 01/31/18 03:30 Baso % (Auto) 0.1 % (0.0-2.0) 01/31/18 03:30 Neut # (Auto) 6.7 th/mm3 (1.8-7.7) 01/31/18 03:30 Lymph # (Auto) 0.4 th/mm3 (1.0-4.8) L 01/31/18 03:30 [place] # (Auto) 0.5 th/mm3 (0.0-0.9) 01/31/18 03:30 Eos # (Auto) 0.0 th/mm3 (0.0-0.4) 01/31/18 03:30 Baso # (Auto) 0.0 th/mm3 (0.0-0.2) 01/31/18 03:30 WBC Differential Manual diff final 01/31/18 03:30 Seg Neuts % (Manual) 92 % (16-70) H 01/31/18 03:30 Band Neuts % (Manual) 5 % (0-6) 01/31/18 03:30 Lymphocytes % (Manual) 2 % (9-44) L 01/31/18 03:30 Monocytes % (Manual) 1 % (0-8) 01/29/18 04:25 Metamyelocytes % (Man) 6 % (0-1) H 01/29/18 04:25 Myelocytes % (Man) 1 % (0-0) H 01/31/18 03:30 Abs Neuts (Manual) 7.5 th/mm3 (1.8-7.7) 01/31/18 03:30 Differential Comment . 01/31/18 03:30 Platelet Estimate Low (Normal) L 01/31/18 03:30 Platelet Morphology Normal (Normal) 01/31/18 03:30 RBC Morphology Normal (Normal) 01/29/18 04:25 Puncture Site Art line 01/31/18 04:19 Patient Temperature 98.6 01/31/18 04:19 O2 Saturation 96 % (90-100) 01/31/18 04:19 ABG pH 7.33 (7.380-7.420) L 01/31/18 04:19 ABG pCO2 30 mmHg (38-42) L 01/31/18 04:19 ABG pO2 129 mmHG (61-120) H 01/31/18 04:19 ABG HCO3 15 mmol/L (22-26) L* 01/31/18 04:19 ABG O2 Content 14.7 Vol % (12.0-20.0) 01/31/18 04:19 ABG Base Excess -9.6 mmol/L (-2-2) L 01/31/18 04:19 ABG Methemoglobin 1.8 % (0-2) 01/31/18 04:19 Alex Test Present 01/30/18 16:32 Hemoglobin 10.7 G/DL (12.0-16.0) L 01/31/18 04:19 Carboxyhemoglobin 0.5 % (0-4) 01/31/18 04:19 O2 Delivery Device Ventilator 01/31/18 04:19 Vent Setting Prvc/ac 01/31/18 04:19 Inspired O2 50 % 01/31/18 04:19 Critical Value Yes 01/31/18 04:19 Sodium 149 meq/L (136-145) H 01/31/18 03:30 Potassium 3.6 meq/L (3.5-5.1) 01/31/18 03:30 Chloride 119 meq/L (98-107) H 01/31/18 03:30 Carbon Dioxide 17.9 meq/L (21.0-32.0) L 01/31/18 03:30 Anion Gap 12 meq/L (5-15) 01/31/18 03:30 BUN 24 mg/dL (7-18) H 01/31/18 03:30 Creatinine 0.63 mg/dL (0.50-1.00) 01/31/18 03:30 Estimated GFR Greater than 89 mL/min (>89) 01/31/18 03:30 POC Glucose 150 mg/dl (68-110) H 01/31/18 07:14 Random Glucose 139 mg/dL (74-106) H 01/31/18 03:30 Lactic Acid 1.3 mmol/L (0.4-2.0) 01/30/18 03:40 Calcium 5.7 mg/dL (8.5-10.1) L* 01/31/18 03:30 Calcium Adj for Albumin 7.6 mg/dL (8.5-10.1) L 01/31/18 03:30 Phosphorus 1.4 mg/dL (2.5-4.9) L 01/31/18 03:30 Magnesium 2.0 mg/dL (1.5-2.5) 01/31/18 03:30 Total Bilirubin 0.7 mg/dL (0.2-1.0) 01/31/18 03:30 AST 250 U/L (15-37) H 01/31/18 03:30 ALT 255 U/L (10-53) H 01/31/18 03:30 Alkaline Phosphatase 164 U/L (45-117) H 01/31/18 03:30 Lactate Dehydrogenase 1296 U/L (84-246) H 01/29/18 13:02 B-Natriuretic Peptide 182 pg/mL (0-100) H 01/29/18 04:25 Total Protein 5.0 g/dL (6.4-8.2) L 01/31/18 03:30 Albumin 1.6 g/dL (3.4-5.0) L 01/31/18 03:30 Beta HCG, Quant Less than 1 mIU/mL (0-5) 01/29/18 04:25 Urine Color Yellow (Yellw/Straw) 01/28/18 18:10 Urine Clarity Clear (Clear) 01/28/18 18:10 Urine pH 6.0 (5.0-8.5) 01/28/18 18:10 Ur Specific [place] 1.010 (1.002-1.035) 01/28/18 18:10 Urine Protein Trace mg/dL (Neg-Trace) 01/28/18 18:10 Urine Glucose (UA) Negative mg/dL (Negative) 01/28/18 18:10 Urine Ketones Negative mg/dL (Negative) 01/28/18 18:10 Urine Occult Blood Negative (Negative) 01/28/18 18:10 Urine Nitrate Negative (Negative) 01/28/18 18:10 Urine Bilirubin Negative (Negative) 01/28/18 18:10 Urine Urobilinogen 1.0 mg/dL (Less than 2) 01/28/18 18:10 Ur Leukocyte Esterase Negative (Negative) 01/28/18 18:10 Urine WBC 0-5 /hpf (0-5) 01/28/18 18:10 Ur Squamous Epith Cells 0-5 /hpf (0-5) 01/28/18 18:10 Urine Bacteria Rare /hpf (None) H 01/28/18 18:10 Urine Mucus Rare /lpf (Occasional) H 01/28/18 18:10 Micro UA Comment Culture not ind 01/28/18 18:10 Ur Microscopic Review Microscopic reviewed 01/28/18 18:10 Urine Culture Comments Culture not ind 01/28/18 18:10 Vancomycin Trough 13.4 mcg/mL (5.0-10.0) H 01/30/18 20:30 Urine Opiates Screen Neg (Neg) 01/28/18 18:10 Ur Barbiturates Screen Neg (Neg) 01/28/18 18:10 Ur Amphetamines Screen Neg (Neg) 01/28/18 18:10 U Benzodiazepines Scrn Neg (Neg) 01/28/18 18:10 Urine Cocaine Screen Pos (Neg) H 01/28/18 18:10 U Cannabinoids Screen Neg (Neg) 01/28/18 18:10 Hepatitis A IgM Ab Nonreactive (Nonreactive) 01/29/18 09:22 Hep Bs Antigen Nonreactive (Nonreactive) 01/29/18 09:22 Hep B Core IgM Ab Nonreactive (Nonreactive) 01/29/18 09:22 Hep C IgG Ab Reactive (Nonreactive) H 01/29/18 09:22 HIV 1&2 Ab/P24 Ag 4thGn Nonreactive (Nonreactive) 01/30/18 12:20 Mycoplasma pneumon Cult ND 01/29/18 09:22 M.pneumoniae Comment ND 01/29/18 09:[address] 01/28/18 18:20 CONCLUSION: Extensive bilateral airspace disease Abdomen X-Ray 01/29/18 00:00 CONCLUSION: Doppler feeding tube in good position in the distal stomach. Chest X-Ray 01/31/18 08:00 CONCLUSION: Diffuse consolidation being worse on the right. This likely is related to diffuse processes such as edema or infection. There may have been slight improvement when compared to the prior exam. Objective Remarks: GENERAL: A well-developed well-nourished female deep sedation and neuromuscular blockade currently intubated in prone position on rotaprone SKIN: Warm and dry. HEAD: Atraumatic. Normocephalic. EYES: Pupils equal and round. No scleral icterus. No injection or drainage. ENT: No nasal bleeding or discharge. Mucous membranes pink and moist. NECK: Trachea midline. No JVD. CARDIOVASCULAR: Normal rate, regular rhythm. RESPIRATORY: No accessory muscle use. Coarse rhonchi. Breath sounds equal bilaterally. Bilateral chest excursion GASTROINTESTINAL: Abdomen soft, non-tender, nondistended. No guarding. MUSCULOSKELETAL: Extremities without clubbing, cyanosis, 1+ generalized edema. No obvious deformities. NEUROLOGICAL: Intubated and deeply sedated with neuromuscular blockade. Previously immediately after intubation on 01/28 patient was awake, alert following commands nodding head to yes and no questions ,no gross focal/sensory deficits at that time. Followed commands in all 4 extremities. Patient then placed on deep sedation in order to maintain ventilator synchrony and optimization of oxygenation. Procedures: 01/31: Sutured right IJ, StatLock removed. Assessment and Plan - Problem List (1) Acute respiratory failure with hypoxia and hypercarbia Code(s): J96.01 - Acute respiratory failure with hypoxia; J96.02 - Acute respiratory failure with hypercapnia Status: Acute (2) Hepatitis Code(s): K75.9 - Inflammatory liver disease, unspecified Status: Acute (3) Bilateral pneumonia Code(s): J18.9 - Pneumonia, unspecified organism Status: Acute (4) Sepsis Code(s): A41.9 - Sepsis, unspecified organism Status: Acute (5) Hypoxia Code(s): R09.02 - Hypoxemia Status: Acute (6) Leukocytosis Code(s): D72.829 - Elevated white blood cell count, unspecified Status: Acute (7) Hyperglycemia Code(s): R73.9 - Hyperglycemia, unspecified Status: Acute - Assessment and Plan Plan: Plan by systems: Neurologic: Anxiety disorder Borderline personality disorder Substance use disorder Maintain Versed, fentanyl, and propofol infusions for analgesia and sedation, to maintain ventilator synchrony We will avoid acetaminophen 650 mg every 6 hours as needed for temperature greater than 101.0, secondary to elevated liver enzymes utilize cooling blanket if required No Daily sedation vacation at this time secondary to increased FiO2 requirements in order to maintain oxygenation. Immediately post intubation patient was awake GCS 11 T 01/28 urine drug screen-positive for cocaine Sedation Versed 10mg/hr, Fent 50 mcgs/hr, Diprivan 25 mcgs/kg/min, neuromuscular blockade Nimbex infusion to maintain TOF 1/4 Respiratory: Acute hypoxemic and hypercarbic respiratory failure Bilateral pneumonia Tobacco use disorder ARDS Vent settings currently VA VC/AC, 500/22/+12/with FIO2 35, Begin Rotaprone 10mins right, and left @35 degrees Continue to monitor serial chest Xrays and ABG's methylprednisolone 125mg x 1 dose , continued 60 mg every 8 hrs 01/28 Sputum culture- NGTD Legionella, pneumococcal urine antigens-neg Influenza antigens A/Bneg 01/29-intubated 7.5 ETT 22 at [facility] 01/28chest x-ray widespread diffuse airspace disease 01/29 chest [id number] inflammatory response Continue methylprednisolone 60 mg every 8hr Pulmonology has been consulted previously prior to intubation following along Chest x-ray pulmonary edemaLasix 40 mg IV x1 dose Cardiovascular: Sinus tachycardia- resolved Maintain MAP > 65mmHg arterial line an CVL right IJ-placed 01/28 01/28 Echo EF 40-45%, moderately dilated left ventricle, LAD infarct vs. Taktsubo cardiomyopathy, no vegetations noted PAP 42 Renal: Maintain Garcia to to assess volume status-currently 1 cc/kilo/hour -- Strict I/Os FEN/GI: Hypo phosphatemia Hepatitis C Transaminitis Metabolic acidosis Maintain n.p.o. status for now [place] in situ Monitor CMP Electrolyte replacement per ICU protocol Decrease IV fluids to one half normal saline at 42 cc/hr Heme/ID: Pneumonia Severe sepsis Leukocytosis-resolved ARDS Hepatitis C 01/28-Legionella, mycoplasma, pneumococcal antigens-negative 01/28 sputum culture-negative Monitor CBC Patient initiated on azithromycin 500 mg every 24, and cefepime 2 g every 8hr, vancomycin (day 3) ID consulted-Dr. Carballo following 01/29 Lactate level -cleared 01/28 Blood kcbuzgi-ysgq-vovtbpxy cocci HIV- negative, CD4 levels Endocrine: Hyperglycemia of critical illness Glucose monitoring per ICU protocol 4 hours-post regimen -- SSI Prophylaxis: GI Prophylaxis famotidine DVT Prophylaxis -- SCDs Lines: Peripheral IVs x3. Arterial line left radial , R IJ CVL 01/29 Dispo: My billing statement This patient remains critically ill with one or more organ systems which are or may become a threat to life. I have spent in excess of 42 minutes discontinuously in the care and management of this patient. This time is exclusive of procedures, and includes, but is not limited to, evaluation of the patient, review of the medical record, discussions with family, consultants, nursing staff, or respiratory therapy, and documentation in the medical record. Code Status: Full Discussed Condition With: [employer] at bedside. No family currently at bedside. (3) Bilateral pneumonia Qualifiers: Pneumonia type: due to unspecified organism Lung location: unspecified part of lung Qualified Code(s): J18.9 - Pneumonia, unspecified organism (4) Sepsis Qualifiers: Sepsis type: sepsis due to unspecified organism Qualified Code(s): A41.9 - Sepsis, unspecified organism (6) Leukocytosis Qualifiers: Leukocytosis type: unspecified Qualified Code(s): D72.829 - Elevated white blood cell count, unspecified
--- NOTE | 2018-01-31 10:20 | P.DIET ---
Nutritional Evaluation Type of nutrition evaluation: follow-up Nutrition consult regarding: Tube Feeding Nutrition screening: [facility] [place] [facility] [place]18 Objective - Diagnosis Bilateral Pneumonia w/Hypoxia, Sepsis, Leukocytosis - Objective % IBW: 109 Body Weight Used for Calculations: Actual (66.6 kg) Energy Needs - Lower Range (kCal/kg): 25 Energy Needs - Upper Range (kCal/kg): 30 Lower Limit kCal/kg (kCals): 1,665 Upper Limit kCal/kg (kCals): 1,998 Lower Limit Protein Factor (Grams per Kg): 1.1 Upper Limit Protein Factor (Grams per Kg): 1.3 Lower Protein Needs (Protein): 73 Upper Protein Needs (Protein): 87 Dietitian Reviewed in Medical Record: Curent medications, Intake & Output, Labs , Medical history Diet Order: NPO Objective Comments: PMH includes: Hep C, borderline personality, anxiety Meds include: Propofol Assessment Assessment: Pt is at high nutritional risk r/t diagnosis and need for TF'ing. Pt remains intubated/sedated on propofol. Pt is currently on a rotaprone bed, to remain NPO for now. [facility] [place] for TF Recs. When appropriate, recommend Jevity 1.5 @ goal rate 50ml/hr to offer 1800 kcal, 77g protein and 912ml free water. Propofol provides some additional kcals(1.1 kcal/ml)when running. Labs reviewed. Additional Recs to follow r/t Clinical Course. Recommendations: 1. Rec TF'ing w/Jevity 1.5 @ goal rate 50ml/hr Dietitian to Monitor: Lab values, Intake & Output, Tube feeding tolerance, Weight change, Medical course
--- NOTE | 2018-01-31 12:10 | P.PNID ---
Subjective Remarks: 32-year-old white female who presented to the emergency department yesterday evening with respiratory symptoms. Emergency department report stated that the patient developed symptoms about a week ago consisting of body aches, nausea, vomiting, diarrhea, fever, chills, and sweats. She was seen at an urgent care center about a week ago and was diagnosed with flu. She subsequently developed a sore throat and pain on swallowing and loss of the voice as well as nonproductive cough. Her energy level is also reported to be very low. The patient was seen in the emergency department and temperature was 98.6, heart rate was elevated at 122, and white count was elevated at 20.8. She was put on nonrebreather mask and oxygen saturation was noted to be between 88% and 92%. The patient was subsequently intubated. Patient is currently prone on the road to prone bed. She is on 50% FiO2. Afebrile. White blood cell count is normal. Still has diffuse bilateral lung infiltrates. Sputum culture has MRSA. Blood culture staph aureus. Identity and sensitivities pending. Discussed with RN. Past Medical History: PAST MEDICAL HISTORY: Reportedly negative. The patient has been evaluated for psychiatric adjustment disorder. She was in the emergency department on 05/14/2017. Allergies/Adverse Reactions: Allergies Sulfa (Sulfonamide Antibiotics) Allergy (Intermediate, Verified 05/14/17 22:25) PT STATES INCREASES HER TEMP Objective Vital Signs 01/30/18 12:15 01/30/18 12:30 01/30/18 12:45 Temperature Pulse Rate 79 80 78 Respiratory Rate 22 Blood Pressure 89/52 L 89/52 L 92/53 L Pulse Oximetry 99 100 100 01/30/18 13:00 01/30/18 13:15 01/30/18 13:30 Temperature Pulse Rate 79 78 78 Respiratory Rate 22 22 22 Blood Pressure 95/54 L 93/54 L 92/54 L Pulse Oximetry 100 100 100 01/30/18 13:45 01/30/18 14:00 01/30/18 14:15 Temperature Pulse Rate 77 78 77 Respiratory Rate 22 22 22 Blood Pressure 90/53 L 92/54 L 95/53 L Pulse Oximetry 100 100 100 01/30/18 14:30 01/30/18 14:45 01/30/18 15:00 Temperature Pulse Rate 80 83 83 Respiratory Rate 22 22 22 Blood Pressure 95/54 L 101/55 L 103/56 L Pulse Oximetry 100 100 100 01/30/18 15:15 01/30/18 15:30 01/30/18 15:45 Temperature Pulse Rate 83 81 79 Respiratory Rate 22 22 22 Blood Pressure 102/59 L 99/54 L 95/50 L Pulse Oximetry 100 100 100 01/30/18 16:00 01/30/18 16:15 01/30/18 16:29 Temperature 98.0 F Pulse Rate 76 75 77 Respiratory Rate 22 22 23 Blood Pressure 92/53 L 95/50 L Pulse Oximetry 100 100 01/30/18 16:30 01/30/18 16:45 01/30/18 17:00 Temperature Pulse Rate 75 78 78 Respiratory Rate 22 22 22 Blood Pressure 95/50 L 97/55 L 96/52 L Pulse Oximetry 100 100 100 01/30/18 17:15 01/30/18 17:30 01/30/18 17:45 Temperature Pulse Rate 78 77 76 Respiratory Rate 22 22 22 Blood Pressure 95/54 L 94/53 L 87/54 L Pulse Oximetry 100 100 100 01/30/18 18:00 01/30/18 18:15 01/30/18 18:30 Temperature Pulse Rate 78 76 76 Respiratory Rate 22 22 22 Blood Pressure 91/54 L 96/52 L 97/52 L Pulse Oximetry 100 100 100 01/30/18 18:45 01/30/18 19:00 01/30/18 19:15 Temperature Pulse Rate 75 75 74 Respiratory Rate 22 22 20 Blood Pressure 100/59 L 100/55 L 95/53 L Pulse Oximetry 100 100 100 01/30/18 19:30 01/30/18 19:40 01/30/18 19:45 Temperature Pulse Rate 75 75 79 Respiratory Rate 22 22 22 Blood Pressure 97/53 L 94/55 L Pulse Oximetry 100 100 01/30/18 20:00 01/30/18 20:15 01/30/18 20:30 Temperature 98.1 F Pulse Rate 85 83 81 Respiratory Rate 22 22 22 Blood Pressure 89/53 L 89/52 L 87/52 L Pulse Oximetry 100 100 100 01/30/18 20:45 01/30/18 21:00 01/30/18 21:15 Temperature Pulse Rate 81 79 83 Respiratory Rate 22 22 22 Blood Pressure 92/50 L 94/55 L 92/50 L Pulse Oximetry 100 100 100 01/30/18 21:30 01/30/18 21:45 01/30/18 21:59 Temperature Pulse Rate 82 81 77 Respiratory Rate 22 22 22 Blood Pressure 92/54 L 94/55 L Pulse Oximetry 100 100 100 01/30/18 22:00 01/30/18 22:15 01/30/18 22:30 Temperature Pulse Rate 75 79 80 Respiratory Rate 22 22 22 Blood Pressure 92/55 L 92/55 L 95/51 L Pulse Oximetry 100 100 100 01/30/18 22:45 01/30/18 23:00 01/30/18 23:15 Temperature Pulse Rate 80 80 80 Respiratory Rate 22 22 22 Blood Pressure 97/54 L 98/53 L 101/57 L Pulse Oximetry 100 100 100 01/30/18 23:30 01/30/18 23:37 01/30/18 23:45 Temperature Pulse Rate 81 83 80 Respiratory Rate 22 22 22 Blood Pressure 94/51 L 95/53 L Pulse Oximetry 100 100 01/30/18 23:46 01/31/18 00:00 01/31/18 00:15 Temperature 98.9 F Pulse Rate 89 86 Respiratory Rate 22 22 22 Blood Pressure 93/52 L 93/52 L Pulse Oximetry 100 100 100 01/31/18 00:30 01/31/18 00:45 01/31/18 01:00 Temperature Pulse Rate 86 83 84 Respiratory Rate 22 22 22 Blood Pressure 95/52 L 95/52 L 100/56 L Pulse Oximetry 100 100 100 01/31/18 01:15 01/31/18 01:30 01/31/18 01:45 Temperature Pulse Rate 83 82 80 Respiratory Rate 22 22 22 Blood Pressure 100/57 L 95/52 L 98/56 L Pulse Oximetry 100 100 100 01/31/18 02:00 01/31/18 02:15 01/31/18 02:30 Temperature Pulse Rate 79 79 80 Respiratory Rate 22 22 22 Blood Pressure 89/55 L 91/54 L 95/50 L Pulse Oximetry 100 100 100 01/31/18 02:45 01/31/18 03:00 01/31/18 03:15 Temperature Pulse Rate 76 78 80 Respiratory Rate 22 22 22 Blood Pressure 96/54 L 98/53 L 104/58 L Pulse Oximetry 100 100 100 01/31/18 03:30 01/31/18 03:45 01/31/18 04:00 Temperature 98.2 F Pulse Rate 77 79 76 Respiratory Rate 22 22 22 Blood Pressure 98/57 L 99/57 L 96/53 L Pulse Oximetry 100 100 100 01/31/18 04:01 01/31/18 04:15 01/31/18 04:30 Temperature Pulse Rate 79 82 Respiratory Rate 23 22 22 Blood Pressure 93/50 L 95/53 L Pulse Oximetry 97 100 100 01/31/18 04:45 01/31/18 05:00 01/31/18 05:15 Temperature Pulse Rate 85 84 84 Respiratory Rate 22 22 22 Blood Pressure 95/54 L 99/57 L 100/59 L Pulse Oximetry 100 100 100 01/31/18 05:30 01/31/18 05:45 01/31/18 05:59 Temperature Pulse Rate 84 84 83 Respiratory Rate 22 22 22 Blood Pressure 94/53 L 98/53 L Pulse Oximetry 100 100 100 01/31/18 06:00 01/31/18 06:15 01/31/18 06:30 Temperature Pulse Rate 83 83 83 Respiratory Rate 22 22 22 Blood Pressure 94/55 L 94/55 L 97/56 L Pulse Oximetry 100 100 100 01/31/18 06:45 01/31/18 07:00 01/31/18 07:15 Temperature Pulse Rate 82 80 81 Respiratory Rate 22 23 22 Blood Pressure 97/52 L 101/59 L 100/55 L Pulse Oximetry 100 100 100 01/31/18 07:26 01/31/18 07:30 01/31/18 07:39 Temperature Pulse Rate 80 Respiratory Rate 22 22 Blood Pressure 98/56 L Pulse Oximetry 100 100 100 01/31/18 07:45 01/31/18 08:00 01/31/18 08:15 Temperature 97.7 F Pulse Rate 82 82 79 Respiratory Rate 22 22 12 Blood Pressure 96/52 L 95/52 L 96/55 L Pulse Oximetry 100 100 100 01/31/18 08:30 01/31/18 08:37 01/31/18 08:45 Temperature Pulse Rate 79 79 Respiratory Rate 22 22 Blood Pressure 98/56 L 98/57 L Pulse Oximetry 100 100 100 01/31/18 09:00 01/31/18 09:15 01/31/18 09:30 Temperature Pulse Rate 72 75 Respiratory Rate 22 Blood Pressure 102/56 L 104/62 100/56 L Pulse Oximetry 93 L 95 93 L 01/31/18 09:45 01/31/18 10:00 01/31/18 10:15 Temperature Pulse Rate 75 75 75 Respiratory Rate 22 22 22 Blood Pressure 104/59 L 96/54 L 102/56 L Pulse Oximetry 94 L 92 L 94 L 01/31/18 10:30 01/31/18 10:32 01/31/18 10:45 Temperature Pulse Rate 79 76 Respiratory Rate 22 22 Blood Pressure 113/68 95/50 L Pulse Oximetry 91 L 95 98 01/31/18 11:00 01/31/18 11:23 Temperature Pulse Rate 78 Respiratory Rate 22 22 Blood Pressure 114/69 Pulse Oximetry 95 99 Intake & Output 01/30/18 01/31/18 01/31/18 18:59 06:59 18:59 Intake Total 1437.5 / 1437.5 2923 / 2923 362.5 / 362.5 Output Total 502 / 502 372 / 372 230 / 230 Balance 935.5 / 935.5 2551 / 2551 132.5 / 132.5 Intake: IV 1437.5 / 1437.5 2923 / 2923 362.5 / 362.5 Versed Inj 100 mg In 100 ml @ 2 100 / 100 100 / 100 100 / 100 MG/HR 2 mls/hr IV.CONT TITRATE PRN Rx#:[id number] Neosynephrine Inj 40 MG In D5W 50 / 50 Inj 496 ML @ 40 MCG/MIN 30 mls/ hr IV.CONT TITRATE PRN Rx#: [id number] Diprivan 1000 mg/100 ml Inj 1, 190 / 190 000 mg In 100 ml @ 5 MCG/KG/MIN 1.998 mls/hr IV.CONT TITRATE PRN Rx#:[id number] NS Inj 1,000 ML @ 125 mls/hr IV 325 / 325 .CONT .Q8H BENOIT Rx#:[id number] 1/2 Normal Saline Inj 1,000 ML 2000 / 2000 @ 100 mls/hr IV.CONT .Q10H BENOIT Rx#:[id number] Azithromycin Inj 500 MG In NS 270 / 270 Inj 250 ML @ 250 mls/hr IV.SIG Q24H BENOIT Rx#:[id number] Maxipime Inj 2,000 MG In NS Inj 200 / 200 100 / 100 100 ML @ 200 mls/hr IV.SIG Q8H BENOIT Rx#:[id number] Pentam Inj 250 MG In D5W Inj 250 / 250 250 ML @ 250 mls/hr IV.SIG Q24H BENOIT Rx#:[id number] Vancomycin Inj 1,250 MG In NS 262.5 / 262.5 263 / 263 262.5 / 262.5 Inj 250 ML @ 250 mls/hr IV.SIG Q12H BENOIT Rx#:[id number] fentaNYL 10 mcg/mL Premix Drip 250 / 250 2,500 mcg In 250 ml @ 50 MCG/HR 5 mls/hr IV.SIG TITRATE PRN Rx #:[id number] Output: Stool 0 / 0 Urine Amount (Catheter) 502 / 502 372 / 372 230 / 230 Indwelling Urethral Catheter 502 / 502 372 / 372 230 / 230 01/29/18 09:22 Sputum - Endotracheal Gram Stain - Final 01/29/18 09:22 Sputum - Endotracheal Sputum Culture - Preliminary S. aureus MRSA 01/28/18 18:50 Blood - Peripheral Aerobic Blood Culture - Preliminary No growth in 3 days 01/28/18 18:50 Blood - Peripheral Anaerobic Blood Culture - Preliminary No growth in 3 days 01/28/18 18:40 Blood - Peripheral Aerobic Blood Culture - Preliminary Staphylococcus aureus 01/28/18 18:40 Blood - Peripheral Anaerobic Blood Culture - Preliminary Staphylococcus aureus 01/29/18 09:22 Urine - Catheterized Urine Legionella Antigen - Final Presumptive negative for Legionella pneumophila serogroup 1 antigen in urine, suggesting no recent or recurrent infection. Infection due to Legionella cannot be ruled out since other serogroups and species may cause disease, antigen may not be present in urine in early infection, and the level of antigen present in the urine may be below the detection limit of the test. 01/29/18 09:22 Urine - Catheterized Urine Streptococcus pneumoniae Antigen ( M - Final Presumptive negative for streptococcus pneumoniae antigen, suggesting no current or recent infection. Infection due to Streptococcus pneumoniae cannot be ruled out since the antigen present in the sample may be below the detection limit of the test. 01/28/18 18:15 Nasal Wash Influenza Types A,B Antigen - Final Negative for FLU A and B antigen Infection due to influenza A or B cannot be ruled out since the antigen present in the sample may be below the detection limit of the test. Lab - Hematology Results 01/30/18 01/31/18 03:40 03:30 WBC 8.2 7.7 RBC 3.33 L 3.12 L Hgb 12.0 11.1 L Hct 35.1 32.8 L MCV 105.5 H 105.3 H MCH 35.9 H 35.7 H MCHC 34.1 33.9 RDW 20.2 H 19.9 H Plt Count 122 L 103 L MPV 8.1 8.6 Prelim Diff (Auto) Slide review pending Slide review pending Neut % (Auto) 91.4 H 87.8 H Lymph % (Auto) 4.7 L 5.4 L Door % (Auto) 3.8 6.7 Eos % (Auto) 0.0 0.0 Baso % (Auto) 0.1 0.1 Neut # (Auto) 7.5 6.7 Lymph # (Auto) 0.4 L 0.4 L Door # (Auto) 0.3 0.5 Eos # (Auto) 0.0 0.0 Baso # (Auto) 0.0 0.0 WBC Differential Manual diff final Manual diff final Seg Neuts % (Manual) 88 H 92 H Band Neuts % (Manual) 11 H 5 Lymphocytes % (Manual) 1 L 2 L Myelocytes % (Man) 1 H Abs Neuts (Manual) 8.1 H 7.5 Differential Comment . . Platelet Estimate Low L Low L Platelet Morphology Normal Normal Lab - Chemistry Results 01/29/18 01/29/18 01/29/18 04:25 12:13 13:02 Sodium Potassium Chloride Carbon Dioxide Anion Gap BUN Creatinine Estimated GFR POC Glucose 103 Random Glucose Lactic Acid Calcium Calcium Adj for Albumin Phosphorus Magnesium Total Bilirubin AST ALT Alkaline Phosphatase Lactate Dehydrogenase 1296 H B-Natriuretic Peptide 182 H Total Protein Albumin 01/29/18 01/29/18 01/29/18 15:25 19:54 23:28 Sodium Potassium Chloride Carbon Dioxide Anion Gap BUN Creatinine Estimated GFR POC Glucose 141 H 154 H 168 H Random Glucose Lactic Acid Calcium Calcium Adj for Albumin Phosphorus Magnesium Total Bilirubin AST ALT Alkaline Phosphatase Lactate Dehydrogenase B-Natriuretic Peptide Total Protein Albumin 01/30/18 01/30/18 01/30/18 03:40 03:40 12:00 Sodium 148 H Potassium 3.9 D Chloride 122 H Carbon Dioxide 19.4 L Anion Gap 7 BUN 16 Creatinine 0.58 Estimated GFR Greater than 89 POC Glucose 103 Random Glucose 146 H Lactic Acid 1.3 Calcium 5.9 L* Calcium Adj for Albumin 7.7 L Phosphorus 0.9 L Magnesium 2.3 D Total Bilirubin 1.0 AST 687 H ALT 368 H Alkaline Phosphatase 195 H Lactate Dehydrogenase B-Natriuretic Peptide Total Protein 4.9 L Albumin 1.8 L 01/30/18 01/30/18 01/31/18 17:36 20:18 03:10 Sodium Potassium Chloride Carbon Dioxide Anion Gap BUN Creatinine Estimated GFR POC Glucose 151 H 125 H 135 H Random Glucose Lactic Acid Calcium Calcium Adj for Albumin Phosphorus Magnesium Total Bilirubin AST ALT Alkaline Phosphatase Lactate Dehydrogenase B-Natriuretic Peptide Total Protein Albumin 01/31/18 01/31/18 01/31/18 03:30 07:14 11:45 Sodium 149 H Potassium 3.6 Chloride 119 H Carbon Dioxide 17.9 L Anion Gap 12 BUN 24 H Creatinine 0.63 Estimated GFR Greater than 89 POC Glucose 150 H 147 H Random Glucose 139 H Lactic Acid Calcium 5.7 L* Calcium Adj for Albumin 7.6 L Phosphorus 1.4 L Magnesium 2.0 Total Bilirubin 0.7 AST 250 H ALT 255 H Alkaline Phosphatase 164 H Lactate Dehydrogenase B-Natriuretic Peptide Total Protein 5.0 L Albumin 1.6 L Imaging: ITS Impressions Chest CT 01/28/18 18:20 CONCLUSION: Extensive bilateral airspace disease Abdomen X-Ray 01/29/18 00:00 CONCLUSION: Doppler feeding tube in good position in the distal stomach. Chest X-Ray 01/31/18 08:00 CONCLUSION: Diffuse consolidation being worse on the right. This likely is related to diffuse processes such as edema or infection. There may have been slight improvement when compared to the prior exam. Physical Exam: GENERAL: Intubated. No acute distress. HEENT: The head is atraumatic. Extraocular movements cannot be fully assessed. The sclerae is nonicteric. Oropharynx intubated. NECK: No adenopathy or swelling. LUNGS: Bilateral rhonchi. HEART: Normal S1 and S2, without audible murmurs, rubs, or gallops. ABDOMEN: Bowel sounds diminished. Soft, nontender. No palpable mass. EXTREMITIES: No clubbing. No cyanosis or edema. SKIN: No rash. The skin is warm and moist. NEUROLOGIC: Unable to assess. PSYCHIATRIC: Unable to assess. Assessment and Plan - Plan IMPRESSION: 1. Bilateral pneumonia. MRSA on sputum culture. 2. Bacteremia. Staph aureus. Identity pending. 3. Hypoxia. 4. Acute respiratory failure. 5. Elevated liver function tests. 6. Leukocytosis. 7. ALLERGY TO SULFA. RECOMMENDATIONS: 1. Continue cefepime. 2. Continue azithromycin. 3. Continue vancomycin. 4. Stop pentamidine. HIV test is negative. 5. Monitor blood culture. 6. Follow chest x-ray. 7. Monitor clinical status.
[2018-01-31] MEDS: Cisatracurium Inj 100 MG in Sodium Chlor 0.9% Inj 240 ML IV.CONT PRN (12:54)
[2018-01-31] MEDS: Azithromycin Inj 500 MG in Sodium Chlor 0.9% Inj 250 ML IV.SIG SCH (20:04)
[2018-01-31] MEDS: Enoxaparin Inj 40 MG/0.4 ML Syringe SQ SCH (21:42)
[2018-02-01] MEDS: Oral Hygiene Kit OROPHARYNG SCH ×4 (00:33→17:08)
[2018-02-01] MEDS: Propofol 1000 mg/100 ml Inj 1,000 MG/100 ML BOTTLE IV.CONT PRN ×3 (01:06→17:55)
[2018-02-01] MEDS: Sodium Chloride 0.45 % Inj 1,000 ML IV.CONT SCH ×3 (03:15→08:55)
[2018-02-01] MEDS: Insulin NovoLIN Regular Correctional Sugar Inj SQ SCH ×5 (03:45→20:50)
[2018-02-01] MEDS: Chlorhexidine Gluconate 2% 1 Pack (2 Cloths) TOPICAL SCH (03:45)
[2018-02-01] MEDS: Midazolam 100 MG/100 ML Inj 100 MG/100 ML BAG IV.CONT PRN ×3 (03:49→23:07)
[2018-02-01 04:58] LABS: ABG Base Excess -7.5 mmol/L (-2-2); ABG PCO2 34 mmHg (38-42); ABG PO2 123 mmHG (61-120)
[2018-02-01] MEDS: MethylPREDNISolone Sod Succinate Inj 125 MG/2 ML Vial IV.PUSH SCH ×3 (05:31→20:53)
[2018-02-01 05:37] LABS: Baso % (Auto) 0.1 % (0.0-2.0); Hematocrit 33.1 % (35.0-46.0); Hemoglobin 11.1 gm/dL (11.6-15.3); Lymph # (Auto) 0.4 th/mm3 (1.0-4.8); Lymph % (Auto) 6.9 % (9.0-44.0); Mean Corpuscular HGB Conc 33.5 % (32.0-36.0); Mean Corpuscular Hemoglobin 35.8 pg (27.0-34.0); Mean Platelet Volume 8.8 fL (7.0-11.0); Mono # (Auto) 0.5 th/mm3 (0.0-0.9); Mono % (Auto) 8.7 % (0.0-8.0); Neut % (Auto) 84.3 % (16.0-70.0); Platelet Count 100 th/mm3 (150-450); Red Blood Count 3.09 mil/mm3 (4.00-5.30); Red Cell Distribution Width 20.3 % (11.6-17.2); White Blood Count 5.9 th/mm3 (4.0-11.0)
[2018-02-01 05:55] LABS: Magnesium 1.9 mg/dL (1.5-2.5); Phosphorus 1.6 mg/dL (2.5-4.9)
--- NOTE | 2018-02-01 07:38 | XR ---
EXAM DATE: 02/01/2018 7:35 AM EST AGE/SEX: 32 years / Female INDICATIONS: Short of breath. CLINICAL DATA: This is the patient's subsequent encounter. Patient reports that signs and symptoms h ave been present for 4 - 6 days and indicates a pain score of Nonresponsive. MEDICAL/SURGICAL HISTORY: Non-responsive. Non-responsive. COMPARISON: [facility] [place], CHEST 1V SINGLE AP, 01/31/2018. . FINDINGS: There is no significant change in the severe bilateral infiltrates consistent with severe pulmonary e jose or pneumonia. Clinical correlation is recommended. The heart is enlarged. The endotracheal tube is approximately 1 cm above the natalie. A right internal jugular central line has its tip in superior vena cava. No pneumothorax is noted. A feeding tube is below diaphragm. CONCLUSION: 1. No significant change in the severe bilateral infiltrates consistent with severe pulmonary edema or pneumonia. Clinical correlation is recommended. 2. Cardiomegaly. 3. Stable multiple tubes and lines. Electronically signed by: Sae Israel MD Board Certified Radiologist 02/01/2018 7:37 AM EST
[2018-02-01] MEDS ORDERED: Pharmacy Ordered Lab Info OTHER ONE (08:45)
[2018-02-01] MEDS: Chlorhexidine 0.12% Oral Kit 15 ML UDC OROPHARYNG SCH ×2 (08:49→20:10)
[2018-02-01] MEDS: Vancomycin Inj 1,250 MG in Sodium Chlor 0.9% Inj 250 ML IV.SIG SCH (08:53)
[2018-02-01] MEDS: Famotidine PF Inj 20 MG/2 ML Vial IV.PUSH SCH ×2 (08:53→20:54)
[2018-02-01] MEDS: fentaNYL 10 mcg/mL Premix Drip 2,500 MCG/250 ML BAG IV.SIG PRN (08:55)
[2018-02-01 09:20] LABS: Alanine Aminotransferase 172 U/L (10-53); Albumin 1.6 g/dL (3.4-5.0); Anion Gap 12 meq/L (5-15); Aspartate Aminotransferase 94 U/L (15-37); Blood Urea Nitrogen 29 mg/dL (7-18); Calcium 5.8 mg/dL (8.5-10.1); Carbon Dioxide 17.3 meq/L (21.0-32.0); Chloride 121 meq/L (98-107); Glomerular Filtration Rate Greater Than 89 mL/min (>89); Glucose,Random 152 mg/dL (74-106); Potassium 3.5 meq/L (3.5-5.1); Sodium 150 meq/L (136-145)
[2018-02-01 09:23] LABS: Alkaline Phosphatase 145 U/L (45-117); Total Protein 5.1 g/dL (6.4-8.2); Vancomycin,Trough 22.3 mcg/mL (5.0-10.0)
[2018-02-01 09:29] LABS: Anion Gap 12 meq/L (5-15); Blood Urea Nitrogen 29 mg/dL (7-18); Calcium 5.8 mg/dL (8.5-10.1); Carbon Dioxide 13.9 meq/L (21.0-32.0); Chloride 122 meq/L (98-107); Glomerular Filtration Rate Greater Than 89 mL/min (>89); Glucose,Random 147 mg/dL (74-106); Potassium 3.5 meq/L (3.5-5.1); Sodium 148 meq/L (136-145)
--- NOTE | 2018-02-01 09:32 | MB ---
cc: Darius Mcneil MD DATE: 02/01/2018 HISTORY OF PRESENT ILLNESS: The patient is a 32-year-old female with past medical history of hepatitis, who initially presented to the [place] ER on 01/29 with complaints of myalgia, intractable nausea, vomiting, diarrhea, in conjunction with fever and chills. Upon presentation to the ED, she had significant leukocytosis with a WBC of 20.8 and chest x-ray revealing extensive bilateral airspace disease. The patient was started on broad-spectrum antibiotics. She was initially placed on BiPAP; however, due to worsening respiratory status, the patient required intubation and mechanical ventilation. She was transferred to [facility] where she required 100% FiO2 with a PEEP of 12. Due to severe hypoxemia, the patient was placed in prone position to improve gas exchange and ventilation perfusion mismatch. When seen, she was heavily sedated with fentanyl and Versed. In addition, she is on neuromuscular blockade, Nimbex. Her blood cultures from 01/28 showed Staph aureus and a sputum culture from 01/29 showed MRSA. She is being followed by infectious disease service. Currently, she is on PRVC mode with rate of 22, tidal volume 500, I time 1.0, PEEP of 8, and FiO2 of 45%. ABG from this morning showed a pH of 7.33, CO2 of 34, pO2 of 123, bicarbonate 17, saturation of 96%. PAST MEDICAL HISTORY: Hepatitis. PAST SURGICAL HISTORY: No previous surgeries. ALLERGIES: SULFA. SOCIAL HISTORY: Nondrinker, smoker. FAMILY HISTORY: Noncontributing the present illness. REVIEW OF SYSTEMS: As per HPI, the rest of review of systems unobtainable. PHYSICAL EXAMINATION: GENERAL: A 32-year-old female heavily sedated, intubated, critically ill. VITAL SIGNS: Temperature 98.2, pulse of 91, blood pressure 149/53, saturation 93%-97%. Vent settings: PRVC rate of 22, tidal volume 501, I-time 1.2 ,PEEP of 8, FiO2 45%. HEENT: Atraumatic, normocephalic. Pupils are equal, round, and reactive to accommodation. Extraocular muscles intact. Conjunctivae pink, anicteric sclerae. Oral mucosa within normal. NECK: Supple. No JVD, adenopathy, or thyromegaly. Trachea in the midline. Orally intubated. CARDIOVASCULAR: Regular rate and rhythm. Normal S1, S2. No murmurs, rubs, or gallops noted. PULMONARY: Bilateral air entry. ABDOMEN: Soft, nontender. No distention. Positive bowel sounds. EXTREMITIES: No cyanosis, clubbing, plus edema. NEUROLOGIC: Intubated and sedated. LABORATORY DATA: WBC 5.9, hemoglobin 11.1, hematocrit 33, platelet count 100. BMP from yesterday showed sodium 149, potassium 3.6, chloride 119, CO2 of 18, BUN 24, creatinine 0.63, AST 250, ALT 255, total bilirubin 0.7, albumin 1.6. Hepatitis profile showed hep C Ig antibody reactive. Blood cultures from 01/28 showed Staph aureus. Sputum culture 01/29 showed MRSA. RADIOGRAPHIC STUDIES: Chest x-ray this morning showed severe bilateral pulmonary infiltrates, cardiomegaly, with some improvements. IMPRESSION: 1. Ventilator-dependent respiratory failure. 2. Acute respiratory distress syndrome. 3. Methicillin-resistant Staphylococcus aureus pneumonia. 4. Staphylococcus aureus bacteremia. 5. Hepatitis C. 6. Anemia. 7. Thrombocytopenia. 8. Hypernatremia. RECOMMENDATIONS: 1. Continue with sedation and neuromuscular blockade, Nimbex. Monitor [id number]. Daily sedation vacation when appropriate. 2. Continued vent support and maintain sats above 92%. 3. Bronchodilators in the form of DuoNeb q.6 and ICU vent bundle. 4. Continue with Solu-Medrol 60 mg IV q.8. 5. Continue with prone positioning to improve V/Q mismatch and gas exchange. Chest x-ray from today showed some improvements in bilateral pulmonary infiltrates. 6. Minimize fluid intake and diurese as needed. 7. Continue with antibiotics, cefepime, vancomycin, and azithromycin. Infectious disease is following. 8. Gastrointestinal and deep venous thrombosis prophylaxis. She is on Pepcid 20 mg q.12 and Lovenox 40 mg subcutaneous daily. 9. Further recommendations will be based on hospital course. Thank you for consultation and allowing us to participate in this patient's care. MD PARISH Meza/windy , 09:03 AM , 09:16 AM
[2018-02-01] MEDS: Potassium Phosphate 500 MG Soluble Tablet PO PRN ×2 (09:44→13:48)
[2018-02-01 09:45] LABS: Albumin 1.6 g/dL (3.4-5.0); Calcium-Albumin Corrected 7.7 mg/dL (8.5-10.1)
--- NOTE | 2018-02-01 12:23 | P.PNCC ---
Subjective Subjective Remarks/Hospital Course: 01/30: The patient's oxygenation moved by midday 01/29, and the patient was transferred via ambulance to [facility]. On her arrival the patient had a CVL placed, echo performed peer and the patient was placed on prone bed for prone positioning. Upon prone positioning, the patient's O2 saturation improved. FiO2 currently is at 60% when patient is in prone position with O2 sat of 100%. The patient remains deeply sedated with neuromuscular blockade Nemex for prone positioning. Urine output is equivalent to 1 cc/kg/h the patient was noted to have a metabolic acidosis this a.m., 50 mEq of sodium bicarbonate was given, IV fluids changed to one half normal saline at 100 cc/ hour. Noted lactic acidemia now resolved. One bottle blood culture showed gram -positive cocci. Discussed with patient's mother and permission granted to obtain HIV labs, deemed medically necessary per ID Dr. Carballo. 01/31: Decreasing FiO2 requirements at this time. Chest x-ray suggestive of interstitial edema, Lasix 40 mg x1 dose provided. IV fluids decreased to 42 cc/ hr . Secondary to prone positioning StatLock removed and central line sutured in place, to prevent possible dislodgment and prone position. Cultures revealed sputum MRSA, and blood gram-positive cocci. HIV testing labs negative. 02/01: Noted improvement clinically and respiratory status O2 requirements have been decreased 0.45% and a PEEP of 8. Patient noted to have a positive fluid balance was diuresed yesterday, chest x-ray shows persistent pulmonary edema Lasix dosing increased to twice daily IV fluids have now been discontinued. Noted thrombocytopenia, heparin platelet antibody has been ordered. Colitis currently being replaced. Objective Vital Signs / I&O: Vital Signs 01/31/18 12:30 01/31/18 12:45 01/31/18 13:00 Temperature Pulse Rate 79 80 80 Respiratory Rate 22 22 22 Blood Pressure 99/55 L 96/54 L 98/54 L Pulse Oximetry 99 100 99 01/31/18 13:15 01/31/18 13:30 01/31/18 13:45 Temperature Pulse Rate 80 79 79 Respiratory Rate 22 22 22 Blood Pressure 94/50 L 95/53 L 99/57 L Pulse Oximetry 98 98 98 01/31/18 14:00 01/31/18 14:05 01/31/18 14:15 Temperature Pulse Rate 79 77 Respiratory Rate 22 22 Blood Pressure 99/58 L 101/57 L Pulse Oximetry 98 100 100 01/31/18 14:30 01/31/18 14:45 01/31/18 15:00 Temperature Pulse Rate 77 78 76 Respiratory Rate 22 22 22 Blood Pressure 101/57 L 100/55 L 100/59 L Pulse Oximetry 100 100 100 01/31/18 15:15 01/31/18 15:16 01/31/18 15:30 Temperature Pulse Rate 76 80 Respiratory Rate 22 22 22 Blood Pressure 92/54 L 95/52 L Pulse Oximetry 100 100 100 01/31/18 15:45 01/31/18 16:00 01/31/18 16:15 Temperature 96.5 F L Pulse Rate 80 78 78 Respiratory Rate 22 22 22 Blood Pressure 99/54 L 100/56 L 102/55 L Pulse Oximetry 100 100 100 01/31/18 16:30 01/31/18 16:45 01/31/18 17:00 Temperature Pulse Rate 76 77 75 Respiratory Rate 22 22 22 Blood Pressure 104/55 L 100/58 L 100/59 L Pulse Oximetry 100 100 100 01/31/18 17:15 01/31/18 17:30 01/31/18 17:45 Temperature Pulse Rate 74 74 Respiratory Rate 22 22 Blood Pressure 92/54 L 97/54 L 100/58 L Pulse Oximetry 100 100 100 01/31/18 18:00 01/31/18 18:15 01/31/18 18:30 Temperature Pulse Rate 73 73 80 Respiratory Rate 22 22 22 Blood Pressure 98/58 L 111/67 115/69 Pulse Oximetry 97 96 91 L 01/31/18 18:45 01/31/18 19:00 01/31/18 19:15 Temperature Pulse Rate 80 81 Respiratory Rate 22 22 Blood Pressure 97/52 L 115/64 109/60 Pulse Oximetry 93 L 97 100 01/31/18 19:18 01/31/18 19:30 01/31/18 19:45 Temperature Pulse Rate 81 79 83 Respiratory Rate 22 22 22 Blood Pressure 99/58 L 101/55 L Pulse Oximetry 100 100 100 01/31/18 20:00 01/31/18 20:15 01/31/18 20:30 Temperature 97.3 F L Pulse Rate 82 81 85 Respiratory Rate 22 22 22 Blood Pressure 98/54 L 99/55 L 92/54 L Pulse Oximetry 100 100 100 01/31/18 20:45 01/31/18 21:00 01/31/18 21:15 Temperature Pulse Rate 84 85 84 Respiratory Rate 22 22 22 Blood Pressure 91/53 L 92/50 L 93/50 L Pulse Oximetry 100 100 100 01/31/18 21:30 01/31/18 21:45 01/31/18 22:00 Temperature Pulse Rate 80 77 77 Respiratory Rate 22 22 22 Blood Pressure 96/54 L 97/53 L 96/51 L Pulse Oximetry 100 100 100 01/31/18 22:15 01/31/18 22:30 01/31/18 22:45 Temperature Pulse Rate 78 75 75 Respiratory Rate 22 22 22 Blood Pressure 98/57 L 96/55 L 96/52 L Pulse Oximetry 100 100 100 01/31/18 23:00 01/31/18 23:15 01/31/18 23:27 Temperature Pulse Rate 75 78 75 Respiratory Rate 22 22 22 Blood Pressure 98/57 L 99/58 L Pulse Oximetry 100 100 100 01/31/18 23:30 01/31/18 23:45 02/01/18 00:00 Temperature Pulse Rate 78 85 90 Respiratory Rate 22 22 22 Blood Pressure 99/55 L 100/58 L 104/55 L Pulse Oximetry 100 100 100 02/01/18 00:15 02/01/18 00:30 02/01/18 00:45 Temperature Pulse Rate 87 85 83 Respiratory Rate 22 22 22 Blood Pressure 105/58 L 101/57 L 101/58 L Pulse Oximetry 100 100 100 02/01/18 01:00 02/01/18 01:15 02/01/18 01:30 Temperature Pulse Rate 82 80 80 Respiratory Rate 22 22 22 Blood Pressure 97/53 L 98/55 L 100/57 L Pulse Oximetry 100 100 100 02/01/18 01:45 02/01/18 02:00 02/01/18 02:15 Temperature Pulse Rate 79 78 77 Respiratory Rate 22 22 22 Blood Pressure 102/55 L 104/57 L 104/57 L Pulse Oximetry 100 100 100 02/01/18 02:30 02/01/18 02:45 02/01/18 03:00 Temperature Pulse Rate 77 75 76 Respiratory Rate 22 22 22 Blood Pressure 102/55 L 103/58 L 93/55 L Pulse Oximetry 100 100 100 02/01/18 03:15 02/01/18 03:30 02/01/18 03:45 Temperature Pulse Rate 75 77 78 Respiratory Rate 22 22 22 Blood Pressure 98/55 L 100/59 L 100/55 L Pulse Oximetry 100 100 100 02/01/18 03:51 02/01/18 04:00 02/01/18 04:15 Temperature 98.2 F Pulse Rate 76 79 86 Respiratory Rate 22 22 22 Blood Pressure 104/58 L 106/59 L Pulse Oximetry 100 100 99 02/01/18 04:30 02/01/18 04:45 02/01/18 05:00 Temperature Pulse Rate 84 80 80 Respiratory Rate 22 22 22 Blood Pressure 106/58 L 103/57 L 103/57 L Pulse Oximetry 100 100 100 02/01/18 05:15 02/01/18 05:30 02/01/18 05:45 Temperature Pulse Rate 79 79 78 Respiratory Rate 22 22 22 Blood Pressure 98/56 L 98/57 L 103/59 L Pulse Oximetry 100 100 100 02/01/18 06:00 02/01/18 06:15 02/01/18 06:30 Temperature Pulse Rate 77 78 79 Respiratory Rate 22 22 22 Blood Pressure 102/56 L 105/56 L 106/55 L Pulse Oximetry 100 100 100 02/01/18 06:45 02/01/18 07:00 02/01/18 07:15 Temperature Pulse Rate 78 77 72 Respiratory Rate 22 22 22 Blood Pressure 102/59 L 102/56 L 111/64 Pulse Oximetry 100 100 99 02/01/18 07:30 02/01/18 07:45 02/01/18 07:46 Temperature Pulse Rate 73 74 Respiratory Rate 22 22 22 Blood Pressure 109/65 Pulse Oximetry 97 97 02/01/18 08:00 02/01/18 08:23 02/01/18 08:30 Temperature 97.9 F Pulse Rate 79 87 89 Respiratory Rate 79 H 22 22 Blood Pressure 105/56 L 105/57 L Pulse Oximetry 98 96 96 02/01/18 08:45 02/01/18 09:00 02/01/18 09:15 Temperature Pulse Rate 91 H 86 89 Respiratory Rate 21 22 18 Blood Pressure 125/71 101/57 L 120/73 Pulse Oximetry 93 L 98 95 02/01/18 09:30 02/01/18 09:45 02/01/18 10:00 Temperature Pulse Rate 85 86 83 Respiratory Rate 22 18 22 Blood Pressure 102/55 L 121/75 103/57 L Pulse Oximetry 99 96 98 02/01/18 10:15 02/01/18 10:30 02/01/18 10:45 Temperature Pulse Rate 82 82 Respiratory Rate 22 22 Blood Pressure 106/60 108/62 109/61 Pulse Oximetry 98 100 100 02/01/18 11:00 02/01/18 11:15 02/01/18 11:17 Temperature Pulse Rate 82 80 81 Respiratory Rate 22 22 22 Blood Pressure 105/59 L 108/59 L Pulse Oximetry 100 100 100 02/01/18 11:30 Temperature Pulse Rate 85 Respiratory Rate 22 Blood Pressure 101/59 L Pulse Oximetry 100 Intake & Output 01/31/18 02/01/18 02/01/18 18:59 06:59 18:59 Intake Total 962.5 / 962.5 1792.5 / 1792.5 762.5 / 762.5 Output Total 1044 / 1044 750 / 750 Balance -81.5 / -81.5 1042.5 / 1042.5 762.5 / 762.5 Intake: IV 962.5 / 962.5 1792.5 / 1792.5 762.5 / 762.5 Versed Inj 100 mg In 100 ml @ 2 200 / 200 100 / 100 MG/HR 2 mls/hr IV.CONT TITRATE PRN Rx#:[id number] Diprivan 1000 mg/100 ml Inj 1, 100 / 100 80 / 80 100 / 100 000 mg In 100 ml @ 5 MCG/KG/MIN 1.998 mls/hr IV.CONT TITRATE PRN Rx#:[id number] 1/2 Normal Saline Inj 1,000 ML 200 / 200 1000 / 1000 150 / 150 @ 42 mls/hr IV.CONT .[id number] [facility] Rx#:[id number] Azithromycin Inj 500 MG In NS 250 / 250 Inj 250 ML @ 250 mls/hr IV.SIG Q24H [facility] Rx#:[id number] Maxipime Inj 2,000 MG In NS Inj 200 / 200 100 / 100 100 ML @ 200 mls/hr IV.SIG Q8H [facility] Rx#:[id number] Vancomycin Inj 1,250 MG In NS 262.5 / 262.5 262.5 / 262.5 262.5 / 262.5 Inj 250 ML @ 250 mls/hr IV.SIG Q12H [facility] Rx#:[id number] fentaNYL 10 mcg/mL Premix Drip 250 / 250 2,500 mcg In 250 ml @ 50 MCG/HR 5 mls/hr IV.SIG TITRATE PRN Rx #:[id number] Output: Urine Amount (Catheter) 1044 / 1044 750 / 750 Indwelling Urethral Catheter 1044 / 1044 750 / 750 Result Diagrams: 02/01/18 04:58 02/01/18 08:30 Other Results: Laboratory Results CBC w Diff Slide review pending 01/29/18 04:25 WBC 5.9 th/mm3 (4.0-11.0) 02/01/18 04:58 RBC 3.09 mil/mm3 (4.00-5.30) L 02/01/18 04:58 Hgb 11.1 gm/dL (11.6-15.3) L 02/01/18 04:58 Hct 33.1 % (35.0-46.0) L 02/01/18 04:58 MCV 107.0 fL (80.0-100.0) H 02/01/18 04:58 MCH 35.8 pg (27.0-34.0) H 02/01/18 04:58 MCHC 33.5 % (32.0-36.0) 02/01/18 04:58 RDW 20.3 % (11.6-17.2) H 02/01/18 04:58 Plt Count 100 th/mm3 (150-450) L 02/01/18 04:58 MPV 8.8 fL (7.0-11.0) 02/01/18 04:58 Prelim Diff (Auto) Slide review pending 02/01/18 04:58 Neut % (Auto) 84.3 % (16.0-70.0) H 02/01/18 04:58 Lymph % (Auto) 6.9 % (9.0-44.0) L 02/01/18 04:58 [place] % (Auto) 8.7 % (0.0-8.0) H 02/01/18 04:58 Eos % (Auto) 0.0 % (0.0-4.0) 02/01/18 04:58 Baso % (Auto) 0.1 % (0.0-2.0) 02/01/18 04:58 Neut # (Auto) 5.0 th/mm3 (1.8-7.7) 02/01/18 04:58 Lymph # (Auto) 0.4 th/mm3 (1.0-4.8) L 02/01/18 04:58 [place] # (Auto) 0.5 th/mm3 (0.0-0.9) 02/01/18 04:58 Eos # (Auto) 0.0 th/mm3 (0.0-0.4) 02/01/18 04:58 Baso # (Auto) 0.0 th/mm3 (0.0-0.2) 02/01/18 04:58 WBC Differential . 02/01/18 04:58 Diff Scan Auto diff confirmed 02/01/18 04:58 Seg Neuts % (Manual) 92 % (16-70) H 01/31/18 03:30 Band Neuts % (Manual) 5 % (0-6) 01/31/18 03:30 Lymphocytes % (Manual) 2 % (9-44) L 01/31/18 03:30 Monocytes % (Manual) 1 % (0-8) 01/29/18 04:25 Metamyelocytes % (Man) 6 % (0-1) H 01/29/18 04:25 Myelocytes % (Man) 1 % (0-0) H 01/31/18 03:30 Abs Neuts (Manual) 7.5 th/mm3 (1.8-7.7) 01/31/18 03:30 Differential Comment . 02/01/18 04:58 Platelet Estimate Low (Normal) L 01/31/18 03:30 Platelet Morphology Normal (Normal) 01/31/18 03:30 RBC Morphology Normal (Normal) 01/29/18 04:25 Puncture Site Right radial 02/01/18 04:43 Patient Temperature 98.6 02/01/18 04:43 O2 Saturation 96 % (90-100) 02/01/18 04:43 ABG pH 7.33 (7.380-7.420) L 02/01/18 04:43 ABG pCO2 34 mmHg (38-42) L 02/01/18 04:43 ABG pO2 123 mmHG (61-120) H 02/01/18 04:43 ABG HCO3 17 mmol/L (22-26) L 02/01/18 04:43 ABG O2 Content 14.9 Vol % (12.0-20.0) 02/01/18 04:43 ABG Base Excess -7.5 mmol/L (-2-2) L 02/01/18 04:43 ABG Methemoglobin 1.8 % (0-2) 02/01/18 04:43 Alex Test Present 02/01/18 04:43 Hemoglobin 10.9 G/DL (12.0-16.0) L 02/01/18 04:43 Carboxyhemoglobin 0.4 % (0-4) 02/01/18 04:43 O2 Delivery Device Ventilator 02/01/18 04:43 Vent Setting 22/500/peep8/it1.2 02/01/18 04:43 Inspired O2 45 % 02/01/18 04:43 Critical Value No 02/01/18 04:43 Sodium 150 meq/L (136-145) H 02/01/18 08:30 Potassium 3.5 meq/L (3.5-5.1) 02/01/18 08:30 Chloride 121 meq/L (98-107) H 02/01/18 08:30 Carbon Dioxide 17.3 meq/L (21.0-32.0) L 02/01/18 08:30 Anion Gap 12 meq/L (5-15) 02/01/18 08:30 BUN 29 mg/dL (7-18) H 02/01/18 08:30 Creatinine 0.58 mg/dL (0.50-1.00) 02/01/18 08:30 Estimated GFR Greater than 89 mL/min (>89) 02/01/18 08:30 POC Glucose 171 mg/dl (68-110) H 02/01/18 08:36 Random Glucose 152 mg/dL (74-106) H 02/01/18 08:30 Lactic Acid 1.3 mmol/L (0.4-2.0) 01/30/18 03:40 Calcium 5.8 mg/dL (8.5-10.1) L* 02/01/18 08:30 Calcium Adj for Albumin 7.7 mg/dL (8.5-10.1) L 02/01/18 08:30 Phosphorus 1.6 mg/dL (2.5-4.9) L 02/01/18 04:58 Magnesium 1.9 mg/dL (1.5-2.5) 02/01/18 04:58 Total Bilirubin 0.6 mg/dL (0.2-1.0) 02/01/18 08:30 AST 94 U/L (15-37) H 02/01/18 08:30 ALT 172 U/L (10-53) H 02/01/18 08:30 Alkaline Phosphatase 145 U/L (45-117) H 02/01/18 08:30 Lactate Dehydrogenase 1296 U/L (84-246) H 01/29/18 13:02 B-Natriuretic Peptide 182 pg/mL (0-100) H 01/29/18 04:25 Total Protein 5.1 g/dL (6.4-8.2) L 02/01/18 08:30 Albumin 1.6 g/dL (3.4-5.0) L 02/01/18 08:30 Beta HCG, Quant Less than 1 mIU/mL (0-5) 01/29/18 04:25 Urine Color Yellow (Yellw/Straw) 01/28/18 18:10 Urine Clarity Clear (Clear) 01/28/18 18:10 Urine pH 6.0 (5.0-8.5) 01/28/18 18:10 Ur Specific [place] 1.010 (1.002-1.035) 01/28/18 18:10 Urine Protein Trace mg/dL (Neg-Trace) 01/28/18 18:10 Urine Glucose (UA) Negative mg/dL (Negative) 01/28/18 18:10 Urine Ketones Negative mg/dL (Negative) 01/28/18 18:10 Urine Occult Blood Negative (Negative) 01/28/18 18:10 Urine Nitrate Negative (Negative) 01/28/18 18:10 Urine Bilirubin Negative (Negative) 01/28/18 18:10 Urine Urobilinogen 1.0 mg/dL (Less than 2) 01/28/18 18:10 Ur Leukocyte Esterase Negative (Negative) 01/28/18 18:10 Urine WBC 0-5 /hpf (0-5) 01/28/18 18:10 Ur Squamous Epith Cells 0-5 /hpf (0-5) 01/28/18 18:10 Urine Bacteria Rare /hpf (None) H 01/28/18 18:10 Urine Mucus Rare /lpf (Occasional) H 01/28/18 18:10 Micro UA Comment Culture not ind 01/28/18 18:10 Ur Microscopic Review Microscopic reviewed 01/28/18 18:10 Urine Culture Comments Culture not ind 01/28/18 18:10 Vancomycin Trough 22.3 mcg/mL (5.0-10.0) H 02/01/18 08:30 Urine Opiates Screen Neg (Neg) 01/28/18 18:10 Ur Barbiturates Screen Neg (Neg) 01/28/18 18:10 Ur Amphetamines Screen Neg (Neg) 01/28/18 18:10 U Benzodiazepines Scrn Neg (Neg) 01/28/18 18:10 Urine Cocaine Screen Pos (Neg) H 01/28/18 18:10 U Cannabinoids Screen Neg (Neg) 01/28/18 18:10 Hepatitis A IgM Ab Nonreactive (Nonreactive) 01/29/18 09:22 Hep Bs Antigen Nonreactive (Nonreactive) 01/29/18 09:22 Hep B Core IgM Ab Nonreactive (Nonreactive) 01/29/18 09:22 Hep C IgG Ab Reactive (Nonreactive) H 01/29/18 09:22 HIV 1&2 Ab/P24 Ag 4thGn Nonreactive (Nonreactive) 01/30/18 12:20 M. pneumoniae Source Cancelled 01/29/18 09:22 Mycoplasma pneumon Cult Cancelled 01/29/18 09:22 M.pneumoniae Comment Cancelled 01/29/18 09:[address] 01/28/18 18:20 CONCLUSION: Extensive bilateral airspace disease Abdomen X-Ray 01/29/18 00:00 CONCLUSION: Doppler feeding tube in good position in the distal stomach. Chest X-Ray 02/01/18 08:00 CONCLUSION: 1. No significant change in the severe bilateral infiltrates consistent with severe pulmonary edema or pneumonia. Clinical correlation is recommended. 2. Cardiomegaly. 3. Stable multiple tubes and lines. Objective Remarks: GENERAL: A well-developed well-nourished female deep sedation and neuromuscular blockade currently intubated in prone position on rotaprone SKIN: Warm and dry. HEAD: Atraumatic. Normocephalic. EYES: Pupils equal and round. No scleral icterus. No injection or drainage. ENT: No nasal bleeding or discharge. Mucous membranes pink and moist. NECK: Trachea midline. No JVD. CARDIOVASCULAR: Normal rate, regular rhythm. RESPIRATORY: No accessory muscle use. Coarse rhonchi. Breath sounds equal bilaterally. Bilateral chest excursion GASTROINTESTINAL: Abdomen soft, non-tender, nondistended. No guarding. MUSCULOSKELETAL: Extremities without clubbing, cyanosis, 1+ generalized edema. No obvious deformities. NEUROLOGICAL: Intubated and deeply sedated with neuromuscular blockade. Previously immediately after intubation on 01/28 patient was awake, alert following commands nodding head to yes and no questions ,no gross focal/sensory deficits at that time. Followed commands in all 4 extremities. Patient then placed on deep sedation in order to maintain ventilator synchrony and optimization of oxygenation. Procedures: 01/31: Sutured right IJ, StatLock removed. Assessment and Plan - Problem List (1) Acute respiratory failure with hypoxia and hypercarbia Code(s): J96.01 - Acute respiratory failure with hypoxia; J96.02 - Acute respiratory failure with hypercapnia Status: Acute (2) Hepatitis Code(s): K75.9 - Inflammatory liver disease, unspecified Status: Acute (3) Bilateral pneumonia Code(s): J18.9 - Pneumonia, unspecified organism Status: Acute (4) Sepsis Code(s): A41.9 - Sepsis, unspecified organism Status: Acute (5) Hypoxia Code(s): R09.02 - Hypoxemia Status: Acute (6) Leukocytosis Code(s): D72.829 - Elevated white blood cell count, unspecified Status: Acute (7) Hyperglycemia Code(s): R73.9 - Hyperglycemia, unspecified Status: Acute (8) Thrombocytopenia Code(s): D69.6 - Thrombocytopenia, unspecified Status: Acute - Assessment and Plan Plan: Plan by systems: Neurologic: Anxiety disorder Borderline personality disorder Substance use disorder Maintain Versed, fentanyl, and propofol infusions for analgesia and sedation, to maintain ventilator synchrony We will avoid acetaminophen 650 mg every 6 hours as needed for temperature greater than 101.0, secondary to elevated liver enzymes utilize cooling blanket if required No Daily sedation vacation at this time secondary to increased FiO2 requirements in order to maintain oxygenation. Immediately post intubation patient was awake GCS 11 T 01/28 urine drug screen-positive for cocaine Sedation Versed 10mg/hr, Fent 50 mcgs/hr, Diprivan 25 mcgs/kg/min, neuromuscular blockade Nimbex infusion to maintain TOF 1/4 Respiratory: Acute hypoxemic and hypercarbic respiratory failure Bilateral pneumonia Tobacco use disorder ARDS Vent settings currently CO VC/AC, 500/22/+12/with FIO2 35, Initiate Rotaprone from 4 hours supine/4 hours prone Continue to monitor serial chest Xrays and ABG's methylprednisolone 125mg x 1 dose , continued 60 mg every 8 hrs 01/28 Sputum culture- NGTD Legionella, pneumococcal urine antigens-neg Influenza antigens A/Bneg 01/29-intubated 7.5 ETT 22 at the lip 01/28chest x-ray widespread diffuse airspace disease 01/29 chest [id number] inflammatory response Continue methylprednisolone 60 mg every 8hr Pulmonology has been consulted previously prior to intubation following along Chest x-ray pulmonary edemaLasix 40 mg IV x1 dose Cardiovascular: Sinus tachycardia- resolved Maintain MAP > 65mmHg arterial line an CVL right IJ-placed 01/28 01/28 Echo EF 40-45%, moderately dilated left ventricle, LAD infarct vs. Taktsubo cardiomyopathy, no vegetations noted PAP 42 Renal: Maintain Garcia to to assess volume status-currently 1 cc/kilo/hour -- Strict I/Os FEN/GI: Hypo phosphatemia Hepatitis C Transaminitis Metabolic acidosis Hypophosphatemia Maintain n.p.o. status for now Dobbhoff in situ Monitor CMP Electrolyte replacement per ICU protocol 02/01 IV fluids discontinued Gave free water flushes per Dobbhoff tube 200 cc q 8hr Heme/ID: Pneumonia Severe sepsis Leukocytosis-resolved ARDS Hepatitis C Thrombocytopenia 01/28-Legionella, mycoplasma, pneumococcal antigens-negative 01/28 sputum culture-negative Monitor CBC ID consulted-Dr. Carballo following, antibiotics per recommendation 01/29 Lactate level -cleared 01/28 Blood ovmuics-mmom-ulndpflh cocci, sputum-MRSA HIV- negative, F/U CD4 levels F/U HCV PCR Obtain heparin platelet antibody Endocrine: Hyperglycemia of critical illness Glucose monitoring per ICU protocol 4 hours-post regimen -- SSI Prophylaxis: GI Prophylaxis famotidine DVT Prophylaxis -- SCDs Lines: Peripheral IVs x3. Arterial line left radial (dc'd 02/01), R IJ CVL 01/29, Right rad arterial line Dispo: My billing statement This patient remains critically ill with one or more organ systems which are or may become a threat to life. I have spent in excess of 37 minutes discontinuously in the care and management of this patient. This time is exclusive of procedures, and includes, but is not limited to, evaluation of the patient, review of the medical record, discussions with family, consultants, nursing staff, or respiratory therapy, and documentation in the medical record. Code Status: Full Discussed Condition With: No family at bedside. Discussed with [employer] (3) Bilateral pneumonia Qualifiers: Pneumonia type: due to unspecified organism Lung location: unspecified part of lung Qualified Code(s): J18.9 - Pneumonia, unspecified organism (4) Sepsis Qualifiers: Sepsis type: sepsis due to unspecified organism Qualified Code(s): A41.9 - Sepsis, unspecified organism (6) Leukocytosis Qualifiers: Leukocytosis type: unspecified Qualified Code(s): D72.829 - Elevated white blood cell count, unspecified
--- NOTE | 2018-02-01 14:21 | P.PNID ---
Subjective Remarks: 32-year-old white female who presented to the emergency department yesterday evening with respiratory symptoms. Emergency department report stated that the patient developed symptoms about a week ago consisting of body aches, nausea, vomiting, diarrhea, fever, chills, and sweats. She was seen at an urgent care center about a week ago and was diagnosed with flu. She subsequently developed a sore throat and pain on swallowing and loss of the voice as well as nonproductive cough. Her energy level is also reported to be very low. The patient was seen in the emergency department and temperature was 98.6, heart rate was elevated at 122, and white count was elevated at 20.8. She was put on nonrebreather mask and oxygen saturation was noted to be between 88% and 92%. The patient was subsequently intubated. Discussed with RN. Patient reports to be doing better from a respiratory standpoint. She is on 45 % FiO2. Saturations 98%. She is supine on the rotating bed. Afebrile. Very little sputum suctioned. Still has diffuse bilateral lung infiltrates. Sputum culture has MRSA. Blood culture staph aureus. Identity and sensitivities pending. Past Medical History: PAST MEDICAL HISTORY: Reportedly negative. The patient has been evaluated for psychiatric adjustment disorder. She was in the emergency department on 05/14/2017. Allergies/Adverse Reactions: Allergies Sulfa (Sulfonamide Antibiotics) Allergy (Intermediate, Verified 05/14/17 22:25) PT STATES INCREASES HER TEMP Objective Vital Signs 01/31/18 14:15 01/31/18 14:30 01/31/18 14:45 Temperature Pulse Rate 77 77 78 Respiratory Rate 22 22 22 Blood Pressure 101/57 L 101/57 L 100/55 L Pulse Oximetry 100 100 100 01/31/18 15:00 01/31/18 15:15 01/31/18 15:16 Temperature Pulse Rate 76 76 Respiratory Rate 22 22 22 Blood Pressure 100/59 L 92/54 L Pulse Oximetry 100 100 100 01/31/18 15:30 01/31/18 15:45 01/31/18 16:00 Temperature 96.5 F L Pulse Rate 80 80 78 Respiratory Rate 22 22 22 Blood Pressure 95/52 L 99/54 L 100/56 L Pulse Oximetry 100 100 100 01/31/18 16:15 01/31/18 16:30 01/31/18 16:45 Temperature Pulse Rate 78 76 77 Respiratory Rate 22 22 22 Blood Pressure 102/55 L 104/55 L 100/58 L Pulse Oximetry 100 100 100 01/31/18 17:00 01/31/18 17:15 01/31/18 17:30 Temperature Pulse Rate 75 74 74 Respiratory Rate 22 22 22 Blood Pressure 100/59 L 92/54 L 97/54 L Pulse Oximetry 100 100 100 01/31/18 17:45 01/31/18 18:00 01/31/18 18:15 Temperature Pulse Rate 73 73 Respiratory Rate 22 22 Blood Pressure 100/58 L 98/58 L 111/67 Pulse Oximetry 100 97 96 01/31/18 18:30 01/31/18 18:45 01/31/18 19:00 Temperature Pulse Rate 80 80 81 Respiratory Rate 22 22 22 Blood Pressure 115/69 97/52 L 115/64 Pulse Oximetry 91 L 93 L 97 01/31/18 19:15 01/31/18 19:18 01/31/18 19:30 Temperature Pulse Rate 81 79 Respiratory Rate 22 22 Blood Pressure 109/60 99/58 L Pulse Oximetry 100 100 100 01/31/18 19:45 01/31/18 20:00 01/31/18 20:15 Temperature 97.3 F L Pulse Rate 83 82 81 Respiratory Rate 22 22 22 Blood Pressure 101/55 L 98/54 L 99/55 L Pulse Oximetry 100 100 100 01/31/18 20:30 01/31/18 20:45 01/31/18 21:00 Temperature Pulse Rate 85 84 85 Respiratory Rate 22 22 22 Blood Pressure 92/54 L 91/53 L 92/50 L Pulse Oximetry 100 100 100 01/31/18 21:15 01/31/18 21:30 01/31/18 21:45 Temperature Pulse Rate 84 80 77 Respiratory Rate 22 22 22 Blood Pressure 93/50 L 96/54 L 97/53 L Pulse Oximetry 100 100 100 01/31/18 22:00 01/31/18 22:15 01/31/18 22:30 Temperature Pulse Rate 77 78 75 Respiratory Rate 22 22 22 Blood Pressure 96/51 L 98/57 L 96/55 L Pulse Oximetry 100 100 100 01/31/18 22:45 01/31/18 23:00 01/31/18 23:15 Temperature Pulse Rate 75 75 78 Respiratory Rate 22 22 22 Blood Pressure 96/52 L 98/57 L 99/58 L Pulse Oximetry 100 100 100 01/31/18 23:27 01/31/18 23:30 01/31/18 23:45 Temperature Pulse Rate 75 78 85 Respiratory Rate 22 22 22 Blood Pressure 99/55 L 100/58 L Pulse Oximetry 100 100 100 02/01/18 00:00 02/01/18 00:15 02/01/18 00:30 Temperature Pulse Rate 90 87 85 Respiratory Rate 22 22 22 Blood Pressure 104/55 L 105/58 L 101/57 L Pulse Oximetry 100 100 100 02/01/18 00:45 02/01/18 01:00 02/01/18 01:15 Temperature Pulse Rate 83 82 80 Respiratory Rate 22 22 22 Blood Pressure 101/58 L 97/53 L 98/55 L Pulse Oximetry 100 100 100 02/01/18 01:30 02/01/18 01:45 02/01/18 02:00 Temperature Pulse Rate 80 79 78 Respiratory Rate 22 22 22 Blood Pressure 100/57 L 102/55 L 104/57 L Pulse Oximetry 100 100 100 02/01/18 02:15 02/01/18 02:30 02/01/18 02:45 Temperature Pulse Rate 77 77 75 Respiratory Rate 22 22 22 Blood Pressure 104/57 L 102/55 L 103/58 L Pulse Oximetry 100 100 100 02/01/18 03:00 02/01/18 03:15 02/01/18 03:30 Temperature Pulse Rate 76 75 77 Respiratory Rate 22 22 22 Blood Pressure 93/55 L 98/55 L 100/59 L Pulse Oximetry 100 100 100 02/01/18 03:45 02/01/18 03:51 02/01/18 04:00 Temperature 98.2 F Pulse Rate 78 76 79 Respiratory Rate 22 22 22 Blood Pressure 100/55 L 104/58 L Pulse Oximetry 100 100 100 02/01/18 04:15 02/01/18 04:30 02/01/18 04:45 Temperature Pulse Rate 86 84 80 Respiratory Rate 22 22 22 Blood Pressure 106/59 L 106/58 L 103/57 L Pulse Oximetry 99 100 100 02/01/18 05:00 02/01/18 05:15 02/01/18 05:30 Temperature Pulse Rate 80 79 79 Respiratory Rate 22 22 22 Blood Pressure 103/57 L 98/56 L 98/57 L Pulse Oximetry 100 100 100 02/01/18 05:45 02/01/18 06:00 02/01/18 06:15 Temperature Pulse Rate 78 77 78 Respiratory Rate 22 22 22 Blood Pressure 103/59 L 102/56 L 105/56 L Pulse Oximetry 100 100 100 02/01/18 06:30 02/01/18 06:45 02/01/18 07:00 Temperature Pulse Rate 79 78 77 Respiratory Rate 22 22 22 Blood Pressure 106/55 L 102/59 L 102/56 L Pulse Oximetry 100 100 100 02/01/18 07:15 02/01/18 07:30 02/01/18 07:45 Temperature Pulse Rate 72 73 74 Respiratory Rate 22 22 22 Blood Pressure 111/64 109/65 Pulse Oximetry 99 97 02/01/18 07:46 02/01/18 08:00 02/01/18 08:23 Temperature 97.9 F Pulse Rate 79 87 Respiratory Rate 22 79 H 22 Blood Pressure 105/56 L Pulse Oximetry 97 98 96 02/01/18 08:30 02/01/18 08:45 02/01/18 09:00 Temperature Pulse Rate 89 91 H 86 Respiratory Rate 22 21 22 Blood Pressure 105/57 L 125/71 101/57 L Pulse Oximetry 96 93 L 98 02/01/18 09:15 02/01/18 09:30 02/01/18 09:45 Temperature Pulse Rate 89 85 86 Respiratory Rate 18 22 18 Blood Pressure 120/73 102/55 L 121/75 Pulse Oximetry 95 99 96 02/01/18 10:00 02/01/18 10:15 02/01/18 10:30 Temperature Pulse Rate 83 82 Respiratory Rate 22 22 Blood Pressure 103/57 L 106/60 108/62 Pulse Oximetry 98 98 100 02/01/18 10:45 02/01/18 11:00 02/01/18 11:15 Temperature Pulse Rate 82 82 80 Respiratory Rate 22 22 22 Blood Pressure 109/61 105/59 L 108/59 L Pulse Oximetry 100 100 100 02/01/18 11:17 02/01/18 11:30 02/01/18 11:45 Temperature Pulse Rate 81 85 86 Respiratory Rate 22 22 22 Blood Pressure 101/59 L 102/59 L Pulse Oximetry 100 100 100 02/01/18 12:00 02/01/18 12:15 02/01/18 12:30 Temperature 98.8 F Pulse Rate 85 86 86 Respiratory Rate 22 22 22 Blood Pressure 104/59 L 105/55 L 108/59 L Pulse Oximetry 100 100 100 02/01/18 12:45 02/01/18 13:00 02/01/18 13:15 Temperature Pulse Rate 87 84 84 Respiratory Rate 22 22 22 Blood Pressure 109/60 104/58 L 105/56 L Pulse Oximetry 100 100 100 Intake & Output 01/31/18 02/01/18 02/01/18 18:59 06:59 18:59 Intake Total 962.5 / 962.5 1792.5 / 1792.5 962.5 / 962.5 Output Total 1044 / 1044 750 / 750 Balance -81.5 / -81.5 1042.5 / 1042.5 962.5 / 962.5 Intake: IV 962.5 / 962.5 1792.5 / 1792.5 962.5 / 962.5 Versed Inj 100 mg In 100 ml @ 2 200 / 200 100 / 100 100 / 100 MG/HR 2 mls/hr IV.CONT TITRATE PRN Rx#:[id number] Diprivan 1000 mg/100 ml Inj 1, 100 / 100 80 / 80 100 / 100 000 mg In 100 ml @ 5 MCG/KG/MIN 1.998 mls/hr IV.CONT TITRATE PRN Rx#:[id number] 1/2 Normal Saline Inj 1,000 ML 200 / 200 1000 / 1000 150 / 150 @ 42 mls/hr IV.CONT .[id number] BENOIT Rx#:[id number] Azithromycin Inj 500 MG In NS 250 / 250 Inj 250 ML @ 250 mls/hr IV.SIG Q24H BENOIT Rx#:[id number] Maxipime Inj 2,000 MG In NS Inj 200 / 200 100 / 100 100 / 100 100 ML @ 200 mls/hr IV.SIG Q8H BENOIT Rx#:[id number] Vancomycin Inj 1,250 MG In NS 262.5 / 262.5 262.5 / 262.5 262.5 / 262.5 Inj 250 ML @ 250 mls/hr IV.SIG Q12H BENOIT Rx#:[id number] fentaNYL 10 mcg/mL Premix Drip 250 / 250 2,500 mcg In 250 ml @ 50 MCG/HR 5 mls/hr IV.SIG TITRATE PRN Rx #:[id number] Output: Urine Amount (Catheter) 1044 / 1044 750 / 750 Indwelling Urethral Catheter 1044 / 1044 750 / 750 01/28/18 18:50 Blood - Peripheral Aerobic Blood Culture - Preliminary No growth in 4 days 01/28/18 18:50 Blood - Peripheral Anaerobic Blood Culture - Preliminary No growth in 4 days 01/28/18 18:40 Blood - Peripheral Aerobic Blood Culture - Final Staphylococcus aureus 01/28/18 18:40 Blood - Peripheral Anaerobic Blood Culture - Final Staphylococcus aureus 01/29/18 09:22 Sputum - Endotracheal Gram Stain - Final 01/29/18 09:22 Sputum - Endotracheal Sputum Culture - Final S. aureus MRSA 01/29/18 09:22 Urine - Catheterized Urine Legionella Antigen - Final Presumptive negative for Legionella pneumophila serogroup 1 antigen in urine, suggesting no recent or recurrent infection. Infection due to Legionella cannot be ruled out since other serogroups and species may cause disease, antigen may not be present in urine in early infection, and the level of antigen present in the urine may be below the detection limit of the test. 01/29/18 09:22 Urine - Catheterized Urine Streptococcus pneumoniae Antigen ( M - Final Presumptive negative for streptococcus pneumoniae antigen, suggesting no current or recent infection. Infection due to Streptococcus pneumoniae cannot be ruled out since the antigen present in the sample may be below the detection limit of the test. Lab - Hematology Results 01/31/18 02/01/18 03:30 04:58 WBC 7.7 5.9 RBC 3.12 L 3.09 L Hgb 11.1 L 11.1 L Hct 32.8 L 33.1 L MCV 105.3 H 107.0 H MCH 35.7 H 35.8 H MCHC 33.9 33.5 RDW 19.9 H 20.3 H Plt Count 103 L 100 L MPV 8.6 8.8 Prelim Diff (Auto) Slide review pending Slide review pending Neut % (Auto) 87.8 H 84.3 H Lymph % (Auto) 5.4 L 6.9 L [place] % (Auto) 6.7 8.7 H Eos % (Auto) 0.0 0.0 Baso % (Auto) 0.1 0.1 Neut # (Auto) 6.7 5.0 Lymph # (Auto) 0.4 L 0.4 L [place] # (Auto) 0.5 0.5 Eos # (Auto) 0.0 0.0 Baso # (Auto) 0.0 0.0 WBC Differential Manual diff final . Diff Scan Auto diff confirmed Seg Neuts % (Manual) 92 H Band Neuts % (Manual) 5 Lymphocytes % (Manual) 2 L Myelocytes % (Man) 1 H Abs Neuts (Manual) 7.5 Differential Comment . . Platelet Estimate Low L Platelet Morphology Normal Lab - Chemistry Results 01/30/18 01/30/18 01/31/18 17:36 20:18 03:10 Sodium Potassium Chloride Carbon Dioxide Anion Gap BUN Creatinine Estimated GFR POC Glucose 151 H 125 H 135 H Random Glucose Calcium Calcium Adj for Albumin Phosphorus Magnesium Total Bilirubin AST ALT Alkaline Phosphatase Total Protein Albumin 01/31/18 01/31/18 01/31/18 03:30 07:14 11:45 Sodium 149 H Potassium 3.6 Chloride 119 H Carbon Dioxide 17.9 L Anion Gap 12 BUN 24 H Creatinine 0.63 Estimated GFR Greater than 89 POC Glucose 150 H 147 H Random Glucose 139 H Calcium 5.7 L* Calcium Adj for Albumin 7.6 L Phosphorus 1.4 L Magnesium 2.0 Total Bilirubin 0.7 AST 250 H ALT 255 H Alkaline Phosphatase 164 H Total Protein 5.0 L Albumin 1.6 L 01/31/18 01/31/18 02/01/18 17:20 19:55 03:41 Sodium Potassium Chloride Carbon Dioxide Anion Gap BUN Creatinine Estimated GFR POC Glucose 130 H 133 H 176 H Random Glucose Calcium Calcium Adj for Albumin Phosphorus Magnesium Total Bilirubin AST ALT Alkaline Phosphatase Total Protein Albumin 02/01/18 02/01/18 02/01/18 04:58 04:58 08:30 Sodium 148 H 150 H Potassium 3.5 3.5 Chloride 122 H 121 H Carbon Dioxide 13.9 L 17.3 L Anion Gap 12 12 BUN 29 H 29 H Creatinine 0.57 0.58 Estimated GFR Greater than 89 Greater than 89 POC Glucose Random Glucose 147 H 152 H Calcium 5.8 L* 5.8 L* Calcium Adj for Albumin 7.7 L 7.7 L Phosphorus 1.6 L Magnesium 1.9 Total Bilirubin 0.6 AST 94 H ALT 172 H Alkaline Phosphatase 145 H Total Protein 5.1 L Albumin 1.6 L 1.6 L 02/01/18 02/01/18 08:36 12:25 Sodium Potassium Chloride Carbon Dioxide Anion Gap BUN Creatinine Estimated GFR POC Glucose 171 H 157 H Random Glucose Calcium Calcium Adj for Albumin Phosphorus Magnesium Total Bilirubin AST ALT Alkaline Phosphatase Total Protein Albumin Imaging: ITS Impressions Chest CT 01/28/18 18:20 CONCLUSION: Extensive bilateral airspace disease Abdomen X-Ray 01/29/18 00:00 CONCLUSION: Doppler feeding tube in good position in the distal stomach. Chest X-Ray 02/01/18 08:00 CONCLUSION: 1. No significant change in the severe bilateral infiltrates consistent with severe pulmonary edema or pneumonia. Clinical correlation is recommended. 2. Cardiomegaly. 3. Stable multiple tubes and lines. Physical Exam: GENERAL: Intubated. No acute distress. HEENT: Difficult to assess on the Rotobed. NECK: No adenopathy or swelling. LUNGS: Bilateral rhonchi. HEART: Normal S1 and S2, without audible murmurs, rubs, or gallops. ABDOMEN: Bowel sounds diminished. Soft, nontender. No palpable mass. EXTREMITIES: No clubbing. No cyanosis, trace edema.. SKIN: No rash. The skin is warm and moist. NEUROLOGIC: Unable to assess. PSYCHIATRIC: Unable to assess. Assessment and Plan - Plan IMPRESSION: 1. Bilateral pneumonia. MRSA on sputum culture. 2. Bacteremia. Staph aureus. MSSA. 3. Hypoxia. 4. Acute respiratory failure. 5. Elevated liver function tests. 6. Leukocytosis. 7. ALLERGY TO SULFA. RECOMMENDATIONS: 1. cefepime. 2. Continue azithromycin. 3. Continue vancomycin. 4. Repeat the blood cultures. 5. Follow chest x-ray. 6. Monitor clinical status.
[2018-02-01] MEDS: Cisatracurium Inj 100 MG in Sodium Chlor 0.9% Inj 240 ML IV.CONT PRN (19:50)
[2018-02-01] MEDS: Azithromycin Inj 500 MG in Sodium Chlor 0.9% Inj 250 ML IV.SIG SCH (19:56)
[2018-02-01] MEDS: Enoxaparin Inj 40 MG/0.4 ML Syringe SQ SCH (22:19)
[2018-02-02] MEDS: Oral Hygiene Kit OROPHARYNG SCH ×4 (00:11→15:31)
[2018-02-02] MEDS ORDERED: Acetaminophen Inj 650 MG/65 ML VIAL IV.SIG ONE (02:09)
[2018-02-02] MEDS: Insulin NovoLIN Regular Correctional Sugar Inj SQ SCH ×5 (02:36→21:13)
[2018-02-02] MEDS: Vancomycin Inj 1,250 MG in Sodium Chlor 0.9% Inj 250 ML IV.SIG SCH ×2 (02:50→20:46)
[2018-02-02] MEDS: Cisatracurium Inj 100 MG in Sodium Chlor 0.9% Inj 240 ML IV.CONT PRN ×2 (03:38→10:59)
[2018-02-02 03:52] LABS: Baso % (Auto) 0.2 % (0.0-2.0); Hematocrit 32.3 % (35.0-46.0); Hemoglobin 10.8 gm/dL (11.6-15.3); Lymph # (Auto) 0.4 th/mm3 (1.0-4.8); Lymph % (Auto) 5.7 % (9.0-44.0); Mean Corpuscular HGB Conc 33.4 % (32.0-36.0); Mean Corpuscular Hemoglobin 35.1 pg (27.0-34.0); Mean Corpuscular Volume 105.1 fL (80.0-100.0); Mean Platelet Volume 8.6 fL (7.0-11.0); Mono # (Auto) 0.8 th/mm3 (0.0-0.9); Mono % (Auto) 11.1 % (0.0-8.0); Platelet Count 136 th/mm3 (150-450); Red Blood Count 3.08 mil/mm3 (4.00-5.30); Red Cell Distribution Width 20.2 % (11.6-17.2); White Blood Count 7.2 th/mm3 (4.0-11.0)
[2018-02-02 04:14] LABS: Anion Gap 9 meq/L (5-15); Blood Urea Nitrogen 29 mg/dL (7-18); Calcium 5.4 mg/dL (8.5-10.1); Carbon Dioxide 19.6 meq/L (21.0-32.0); Chloride 123 meq/L (98-107); Glomerular Filtration Rate Greater Than 89 mL/min (>89); Glucose,Random 157 mg/dL (74-106); Magnesium 1.7 mg/dL (1.5-2.5); Phosphorus 1.6 mg/dL (2.5-4.9); Potassium 3.8 meq/L (3.5-5.1); Sodium 152 meq/L (136-145)
[2018-02-02 04:26] LABS: Albumin 1.7 g/dL (3.4-5.0)
[2018-02-02] MEDS: Chlorhexidine Gluconate 2% 1 Pack (2 Cloths) TOPICAL SCH (04:31)
[2018-02-02] MEDS: MethylPREDNISolone Sod Succinate Inj 125 MG/2 ML Vial IV.PUSH SCH ×3 (04:32→20:46)
[2018-02-02 04:34] LABS: Calcium-Albumin Corrected 7.2 mg/dL (8.5-10.1)
[2018-02-02] MEDS ORDERED: Calcium Chloride Inj 2 GM in Dextrose 5% in Water Inj 100 ML IV.SIG ONE ×2 (04:51)
[2018-02-02 04:59] LABS: ABG Base Excess -5.9 mmol/L (-2-2); ABG PCO2 32 mmHg (38-42); ABG PO2 121 mmHG (61-120)
[2018-02-02 04:59] LABS: Platelet Morphology Normal (Normal)
[2018-02-02 05:00] LABS: RBC Morphology Normal (Normal)
[2018-02-02] MEDS: Propofol 1000 mg/100 ml Inj 1,000 MG/100 ML BOTTLE IV.CONT PRN ×2 (06:18→15:31)
--- NOTE | 2018-02-02 08:10 | XR ---
EXAM DATE: 02/02/2018 8:06 AM EST AGE/SEX: 32 years / Female INDICATIONS: Respiratory failure. CLINICAL DATA: This is the patient's subsequent encounter. Patient reports that signs and symptoms h ave been present for 1 week and indicates a pain score of Nonresponsive. MEDICAL/SURGICAL HISTORY: None. None. [place] [facility] [place]. . FINDINGS: The ET tube and right internal jugular central vein catheter are well placed. The heart size is carmelo l. The lungs demonstrate diffuse increased measures markings. There is further alveolar density seen in the upper lungs bilaterally being worse on the right and at the lateral right base. The alveolar d ensities appear slightly improved from the prior exam. There does appear to be a Dobbhoff tube tip in the thoracic inlet region in the upper cervical esopha cm. CONCLUSION: Diffuse interstitial markings consistent with diffuse edema. Alveolar consolidation in the upper lungs and lateral right base. These areas appear to be mildly imp roved from the prior exam. What appears to be the tip of the Dobbhoff tube is seen at the thoracic inlet region presumably in th e cervical esophagus. Electronically signed by: Lv Tesfaye MD Board Certified Radiologist 02/02/2018 8:09 AM EST
[2018-02-02] MEDS: Famotidine PF Inj 20 MG/2 ML Vial IV.PUSH SCH ×2 (08:58→21:13)
[2018-02-02] MEDS: Chlorhexidine 0.12% Oral Kit 15 ML UDC OROPHARYNG SCH ×2 (08:58→20:47)
[2018-02-02] MEDS: Midazolam 100 MG/100 ML Inj 100 MG/100 ML BAG IV.CONT PRN ×2 (08:59→18:00)
[2018-02-02] MEDS: Potassium Phosphate 500 MG Soluble Tablet PO PRN (08:59)
--- NOTE | 2018-02-02 10:40 | P.PNPL ---
Subjective Interval history: Patient remains on rotoprone bed. On PRVC with PEEP:8 and FIO2 40%. Tmax 101.7. Sedated and on neuromuscular blockade( Nimbex). Physical Exam Vital signs: Vital Signs 02/01/18 10:45 02/01/18 11:00 02/01/18 11:15 Temperature Pulse Rate 82 82 80 Respiratory Rate 22 22 22 Blood Pressure 109/61 105/59 L 108/59 L Pulse Oximetry 100 100 100 02/01/18 11:17 02/01/18 11:30 02/01/18 11:45 Temperature Pulse Rate 81 85 86 Respiratory Rate 22 22 22 Blood Pressure 101/59 L 102/59 L Pulse Oximetry 100 100 100 02/01/18 12:00 02/01/18 12:15 02/01/18 12:30 Temperature 98.8 F Pulse Rate 85 86 86 Respiratory Rate 22 22 22 Blood Pressure 104/59 L 105/55 L 108/59 L Pulse Oximetry 100 100 100 02/01/18 12:45 02/01/18 13:00 02/01/18 13:15 Temperature Pulse Rate 87 84 84 Respiratory Rate 22 22 22 Blood Pressure 109/60 104/58 L 105/56 L Pulse Oximetry 100 100 100 02/01/18 13:30 02/01/18 13:45 02/01/18 14:00 Temperature Pulse Rate 83 87 Respiratory Rate 22 22 Blood Pressure 106/62 107/59 L 120/71 Pulse Oximetry 100 98 94 L 02/01/18 14:15 02/01/18 14:30 02/01/18 14:45 Temperature Pulse Rate 85 85 90 Respiratory Rate 22 22 22 Blood Pressure 105/58 L 119/69 123/71 Pulse Oximetry 97 96 96 02/01/18 15:00 02/01/18 15:15 02/01/18 15:30 Temperature Pulse Rate 87 92 H 88 Respiratory Rate 22 22 22 Blood Pressure 106/56 L 123/75 105/55 L Pulse Oximetry 98 97 99 02/01/18 15:45 02/01/18 15:48 02/01/18 15:59 Temperature 100.7 F H Pulse Rate 90 90 95 H Respiratory Rate 22 22 22 Blood Pressure 106/56 L Pulse Oximetry 99 99 98 02/01/18 16:00 02/01/18 16:15 02/01/18 16:30 Temperature Pulse Rate 96 H 99 H 98 H Respiratory Rate 22 22 22 Blood Pressure 111/56 L 111/59 L 110/59 L Pulse Oximetry 98 97 97 02/01/18 16:45 02/01/18 17:00 02/01/18 17:15 Temperature Pulse Rate 97 H 97 H 98 H Respiratory Rate 22 22 22 Blood Pressure 111/59 L 108/56 L 108/57 L Pulse Oximetry 98 97 97 02/01/18 17:30 02/01/18 17:45 02/01/18 18:00 Temperature Pulse Rate 100 H 98 H 102 H Respiratory Rate 22 22 22 Blood Pressure 124/71 110/55 L 125/69 Pulse Oximetry 95 97 94 L 02/01/18 18:15 02/01/18 19:00 02/01/18 19:31 Temperature 101.7 F H Pulse Rate 100 H 102 H 97 H Respiratory Rate 22 22 22 Blood Pressure 111/53 L 121/66 Pulse Oximetry 96 96 98 02/01/18 20:00 02/01/18 21:00 02/01/18 22:00 Temperature Pulse Rate 97 H 100 H 93 H Respiratory Rate 22 22 22 Blood Pressure 110/55 L 107/59 L 109/62 Pulse Oximetry 98 99 99 02/01/18 23:00 02/01/18 23:32 02/02/18 00:00 Temperature 101.2 F H Pulse Rate 92 H 89 93 H Respiratory Rate 22 22 0 L Blood Pressure 110/62 111/55 L Pulse Oximetry 99 96 96 02/02/18 01:00 02/02/18 02:00 02/02/18 02:55 Temperature 102.5 F H Pulse Rate 99 H 100 H 97 H Respiratory Rate 22 22 22 Blood Pressure 121/71 123/67 Pulse Oximetry 95 96 02/02/18 03:00 02/02/18 03:15 02/02/18 04:00 Temperature 101.3 F H 101.0 F H Pulse Rate 96 H 98 H 93 H Respiratory Rate 22 22 22 Blood Pressure 122/65 122/65 113/63 Pulse Oximetry 96 98 02/02/18 04:01 02/02/18 04:59 02/02/18 05:00 Temperature 101.1 F H Pulse Rate 89 89 Respiratory Rate 22 22 22 Blood Pressure 109/57 L Pulse Oximetry 98 98 98 02/02/18 06:00 02/02/18 07:00 02/02/18 08:00 Temperature 101.6 F H 101.0 F H Pulse Rate 75 81 75 Respiratory Rate 22 22 22 Blood Pressure 114/63 111/62 115/68 Pulse Oximetry 99 99 98 02/02/18 09:00 Temperature Pulse Rate 75 Respiratory Rate 22 Blood Pressure 111/60 Pulse Oximetry 97 Intake & Output 02/01/18 02/02/18 02/02/18 18:59 06:59 18:59 Intake Total 1582.5 / 1582.5 1147.5 / 1147.5 100 / 100 Output Total 2475 / 2475 1250 / 1250 Balance -892.5 / -892.5 -102.5 / -102.5 100 / 100 Intake: IV 1062.5 / 1062.5 1147.5 / 1147.5 100 / 100 Nimbex Inj 100 MG In NS Inj 240 250 / 250 ML @ 1 MCG/KG/MIN 9.99 mls/hr IV.CONT TITRATE PRN Rx#: [id number] Versed Inj 100 mg In 100 ml @ 2 100 / 100 100 / 100 100 / 100 MG/HR 2 mls/hr IV.CONT TITRATE PRN Rx#:[id number] Diprivan 1000 mg/100 ml Inj 1, 200 / 200 100 / 100 000 mg In 100 ml @ 5 MCG/KG/MIN 1.998 mls/hr IV.CONT TITRATE PRN Rx#:[id number] 1/2 Normal Saline Inj 1,000 ML 150 / 150 @ 42 mls/hr IV.CONT .[id number] BENOIT Rx#:[id number] Ofirmev Inj 650 mg In 65 ml @ 65 / 65 260 mls/hr IV.SIG ONCE ONE Rx#: [id number] Azithromycin Inj 500 MG In NS 250 / 250 Inj 250 ML @ 250 mls/hr IV.SIG Q24H BENOIT Rx#:[id number] Calcium Chloride Inj 2 GM In 120 / 120 D5W Inj 100 ML @ 120 mls/hr IV. SIG ONCE ONE Rx#:[id number] Maxipime Inj 2,000 MG In NS Inj 100 / 100 100 ML @ 200 mls/hr IV.SIG Q8H BENOIT Rx#:[id number] Vancomycin Inj 1,250 MG In NS 262.5 / 262.5 262.5 / 262.5 Inj 250 ML @ 250 mls/hr IV.SIG Q18H BENOIT Rx#:[id number] fentaNYL 10 mcg/mL Premix Drip 250 / 250 2,500 mcg In 250 ml @ 50 MCG/HR 5 mls/hr IV.SIG TITRATE PRN Rx #:[id number] Tube Irrigant 120 / 120 Water Bolus Amount 400 / 400 Output: Stool 0 / 0 Urine Amount (Catheter) 2475 / 2475 1250 / 1250 Indwelling Urethral Catheter 2475 / 2475 1250 / 1250 - Constitutional no acute distress - Routine HEENT Exam Head: Present: normocephalic, atraumatic Eye: Present: EOMI, PERRL, normal accommodation, conjunctivae pink ENT: Present: mucous membranes moist - Routine Neck Exam Present: supple, full ROM, trachea midline - Routine Respiratory Exam Present: patient mechanically ventilated, CTA bilaterally - Routine Cardiovascular Exam Present: RRR, S1, S2 - Routine Abdominal Exam Present: soft, normoactive bowel sounds - Routine Skin Exam Present: intact, dry - Routine Neurological Exam Present: altered mental status - Urinary Catheter Management Indwelling Urethral Catheter Cath placed during this visit: yes Reason for continuing: Other continuation reason Insertion date: 01/29/18 Insertion time: 07:15 Assessment and Plan - Assessment (1) Acute respiratory failure with hypoxia and hypercarbia Code(s): J96.01 - Acute respiratory failure with hypoxia; J96.02 - Acute respiratory failure with hypercapnia Status: Acute (2) Hepatitis Code(s): K75.9 - Inflammatory liver disease, unspecified Status: Acute (3) Bilateral pneumonia Code(s): J18.9 - Pneumonia, unspecified organism Status: Acute Qualifiers: Pneumonia type: due to unspecified organism Lung location: unspecified part of lung Qualified Code(s): J18.9 - Pneumonia, unspecified organism (4) Sepsis Code(s): A41.9 - Sepsis, unspecified organism Status: Acute Qualifiers: Sepsis type: sepsis due to unspecified organism Qualified Code(s): A41.9 - Sepsis, unspecified organism (5) Hypoxia Code(s): R09.02 - Hypoxemia Status: Acute (6) Leukocytosis Code(s): D72.829 - Elevated white blood cell count, unspecified Status: Acute Qualifiers: Leukocytosis type: unspecified Qualified Code(s): D72.829 - Elevated white blood cell count, unspecified (7) Hyperglycemia Code(s): R73.9 - Hyperglycemia, unspecified Status: Acute (8) Thrombocytopenia Code(s): D69.6 - Thrombocytopenia, unspecified Status: Acute - Plan 1. VDRF 2. ARDS 3. MRSA pneumonia. 4. Staphylococcus aureus bacteremia. 5. Hepatitis C. 6. Anemia. 7. Thrombocytopenia. 8. Hypernatremia. Plan Continue with sedation and neuromuscular blockade, Nimbex. Monitor [place] [employer]. Continue vent support and maintain sats >92%. Bronchodilators, ICU vent bundle. Solu-Medrol 60 mg IV q.8. CXR today shows diffuse interstitial markings ,alveolar consolidation in the upper lungs and lateral right base with some improvements. Patient with improvements on oxygenation will likely be taken off Rotoprone bed today. Continue diuretics- on Lasix 40mg BID Abx per ID -cefepime, vancomycin, and azithromycin. Follow up on blood cultures from 02/01. Influenza screening negative on 01/28 GI/DVT prophylaxis. on Pepcid 20 mg q.12 and Lovenox 40 mg subcutaneous daily. Discussed with nursing staff and Dr. Medrano.
--- NOTE | 2018-02-02 11:46 | P.PNCC ---
Subjective Subjective Remarks/Hospital Course: 01/30: The patient's oxygenation moved by midday 01/29, and the patient was transferred via ambulance to [facility]. On her arrival the patient had a CVL placed, echo performed peer and the patient was placed on prone bed for prone positioning. Upon prone positioning, the patient's O2 saturation improved. FiO2 currently is at 60% when patient is in prone position with O2 sat of 100%. The patient remains deeply sedated with neuromuscular blockade Nemex for prone positioning. Urine output is equivalent to 1 cc/kg/h the patient was noted to have a metabolic acidosis this a.m., 50 mEq of sodium bicarbonate was given, IV fluids changed to one half normal saline at 100 cc/ hour. Noted lactic acidemia now resolved. One bottle blood culture showed gram -positive cocci. Discussed with patient's mother and permission granted to obtain HIV labs, deemed medically necessary per ID Dr. Carballo. 01/31: Decreasing FiO2 requirements at this time. Chest x-ray suggestive of interstitial edema, Lasix 40 mg x1 dose provided. IV fluids decreased to 42 cc/ hr . Secondary to prone positioning StatLock removed and central line sutured in place, to prevent possible dislodgment and prone position. Cultures revealed sputum MRSA, and blood gram-positive cocci. HIV testing labs negative. 02/01: Noted improvement clinically and respiratory status O2 requirements have been decreased 0.45% and a PEEP of 8. Patient noted to have a positive fluid balance was diuresed yesterday, chest x-ray shows persistent pulmonary edema Lasix dosing increased to twice daily IV fluids have now been discontinued. Noted thrombocytopenia, heparin platelet antibody has been ordered. Colitis currently being replaced. 02/02: fio2 continues to improve. supinated today and remains stable x 8 hrs. can likely transition off RotaProne bed today. continues to be very volume overloaded, although adequate start to diuresis yesterday. Objective Vital Signs / I&O: Vital Signs 02/01/18 12:00 02/01/18 12:15 02/01/18 12:30 Temperature 37.1 C Pulse Rate 85 86 86 Respiratory Rate 22 22 22 Blood Pressure 104/59 L 105/55 L 108/59 L Pulse Oximetry 100 100 100 02/01/18 12:45 02/01/18 13:00 02/01/18 13:15 Temperature Pulse Rate 87 84 84 Respiratory Rate 22 22 22 Blood Pressure 109/60 104/58 L 105/56 L Pulse Oximetry 100 100 100 02/01/18 13:30 02/01/18 13:45 02/01/18 14:00 Temperature Pulse Rate 83 87 Respiratory Rate 22 22 Blood Pressure 106/62 107/59 L 120/71 Pulse Oximetry 100 98 94 L 02/01/18 14:15 02/01/18 14:30 02/01/18 14:45 Temperature Pulse Rate 85 85 90 Respiratory Rate 22 22 22 Blood Pressure 105/58 L 119/69 123/71 Pulse Oximetry 97 96 96 02/01/18 15:00 02/01/18 15:15 02/01/18 15:30 Temperature Pulse Rate 87 92 H 88 Respiratory Rate 22 22 22 Blood Pressure 106/56 L 123/75 105/55 L Pulse Oximetry 98 97 99 02/01/18 15:45 02/01/18 15:48 02/01/18 15:59 Temperature 38.2 C H Pulse Rate 90 90 95 H Respiratory Rate 22 22 22 Blood Pressure 106/56 L Pulse Oximetry 99 99 98 02/01/18 16:00 02/01/18 16:15 02/01/18 16:30 Temperature Pulse Rate 96 H 99 H 98 H Respiratory Rate 22 22 22 Blood Pressure 111/56 L 111/59 L 110/59 L Pulse Oximetry 98 97 97 02/01/18 16:45 02/01/18 17:00 02/01/18 17:15 Temperature Pulse Rate 97 H 97 H 98 H Respiratory Rate 22 22 22 Blood Pressure 111/59 L 108/56 L 108/57 L Pulse Oximetry 98 97 97 02/01/18 17:30 02/01/18 17:45 02/01/18 18:00 Temperature Pulse Rate 100 H 98 H 102 H Respiratory Rate 22 22 22 Blood Pressure 124/71 110/55 L 125/69 Pulse Oximetry 95 97 94 L 02/01/18 18:15 02/01/18 19:00 02/01/18 19:31 Temperature 38.7 C H Pulse Rate 100 H 102 H 97 H Respiratory Rate 22 22 22 Blood Pressure 111/53 L 121/66 Pulse Oximetry 96 96 98 02/01/18 20:00 02/01/18 21:00 02/01/18 22:00 Temperature Pulse Rate 97 H 100 H 93 H Respiratory Rate 22 22 22 Blood Pressure 110/55 L 107/59 L 109/62 Pulse Oximetry 98 99 99 02/01/18 23:00 02/01/18 23:32 02/02/18 00:00 Temperature 38.4 C H Pulse Rate 92 H 89 93 H Respiratory Rate 22 22 0 L Blood Pressure 110/62 111/55 L Pulse Oximetry 99 96 96 02/02/18 01:00 02/02/18 02:00 02/02/18 02:55 Temperature 39.2 C H Pulse Rate 99 H 100 H 97 H Respiratory Rate 22 22 22 Blood Pressure 121/71 123/67 Pulse Oximetry 95 96 02/02/18 03:00 02/02/18 03:15 02/02/18 04:00 Temperature 38.5 C H 38.3 C H Pulse Rate 96 H 98 H 93 H Respiratory Rate 22 22 22 Blood Pressure 122/65 122/65 113/63 Pulse Oximetry 96 98 02/02/18 04:01 02/02/18 04:59 02/02/18 05:00 Temperature 38.4 C H Pulse Rate 89 89 Respiratory Rate 22 22 22 Blood Pressure 109/57 L Pulse Oximetry 98 98 98 02/02/18 06:00 02/02/18 07:00 02/02/18 08:00 Temperature 38.7 C H 38.3 C H Pulse Rate 75 81 76 Respiratory Rate 22 22 22 Blood Pressure 114/63 111/62 115/68 Pulse Oximetry 99 99 98 02/02/18 09:00 02/02/18 10:00 02/02/18 11:00 Temperature Pulse Rate 75 74 76 Respiratory Rate 22 22 22 Blood Pressure 111/60 112/58 L Pulse Oximetry 97 97 02/02/18 11:12 Temperature Pulse Rate Respiratory Rate 22 Blood Pressure Pulse Oximetry 97 Intake & Output 02/01/18 02/02/18 02/02/18 18:59 06:59 18:59 Intake Total 1582.5 / 1582.5 1147.5 / 1147.5 350 / 350 Output Total 2475 / 2475 1250 / 1250 Balance -892.5 / -892.5 -102.5 / -102.5 350 / 350 Intake: IV 1062.5 / 1062.5 1147.5 / 1147.5 350 / 350 Nimbex Inj 100 MG In NS Inj 240 250 / 250 250 / 250 ML @ 1 MCG/KG/MIN 9.99 mls/hr IV.CONT TITRATE PRN Rx#: [id number] Versed Inj 100 mg In 100 ml @ 2 100 / 100 100 / 100 100 / 100 MG/HR 2 mls/hr IV.CONT TITRATE PRN Rx#:[id number] Diprivan 1000 mg/100 ml Inj 1, 200 / 200 100 / 100 000 mg In 100 ml @ 5 MCG/KG/MIN 1.998 mls/hr IV.CONT TITRATE PRN Rx#:[id number] 1/2 Normal Saline Inj 1,000 ML 150 / 150 @ 42 mls/hr IV.CONT .[id number] [facility] Rx#:[id number] Ofirmev Inj 650 mg In 65 ml @ 65 / 65 260 mls/hr IV.SIG ONCE ONE Rx#: [id number] Azithromycin Inj 500 MG In NS 250 / 250 Inj 250 ML @ 250 mls/hr IV.SIG Q24H [facility] Rx#:[id number] Calcium Chloride Inj 2 GM In 120 / 120 D5W Inj 100 ML @ 120 mls/hr IV. SIG ONCE ONE Rx#:[id number] Maxipime Inj 2,000 MG In NS Inj 100 / 100 100 ML @ 200 mls/hr IV.SIG Q8H [facility] Rx#:[id number] Vancomycin Inj 1,250 MG In NS 262.5 / 262.5 262.5 / 262.5 Inj 250 ML @ 250 mls/hr IV.SIG Q18H [facility] Rx#:[id number] fentaNYL 10 mcg/mL Premix Drip 250 / 250 2,500 mcg In 250 ml @ 50 MCG/HR 5 mls/hr IV.SIG TITRATE PRN Rx #:[id number] Tube Irrigant 120 / 120 Water Bolus Amount 400 / 400 Output: Stool 0 / 0 Urine Amount (Catheter) 2909 / 2045 1250 / 1250 Indwelling Urethral Catheter 8465 / 5 1250 / 1250 Result Diagrams: 02/02/18 03:05 02/02/18 03:05 Objective Remarks: GENERAL: young female, lying in bed, intubated, sedated, paralyzed, critically ill. SKIN: Warm and dry. HEAD: Atraumatic. Normocephalic. EYES: Pupils equal and round. No scleral icterus. No injection or drainage. ENT: No nasal bleeding or discharge. Mucous membranes pink and moist. NECK: Trachea midline. No JVD. CARDIOVASCULAR: Normal rate, regular rhythm. sinus. RESPIRATORY: No accessory muscle use. Coarse rhonchi. Breath sounds equal bilaterally. Bilateral chest excursion. GASTROINTESTINAL: Abdomen soft, non-tender, nondistended. No guarding. MUSCULOSKELETAL: Extremities without clubbing, cyanosis, 1+ generalized edema. No obvious deformities. NEUROLOGICAL: Intubated and deeply sedated with neuromuscular blockade. Procedures: 01/31: Sutured right IJ, StatLock removed. Assessment and Plan - Problem List (1) Acute respiratory failure with hypoxia and hypercarbia Code(s): J96.01 - Acute respiratory failure with hypoxia; J96.02 - Acute respiratory failure with hypercapnia Status: Acute (2) Hepatitis Code(s): K75.9 - Inflammatory liver disease, unspecified Status: Acute (3) Bilateral pneumonia Code(s): J18.9 - Pneumonia, unspecified organism Status: Acute (4) Sepsis Code(s): A41.9 - Sepsis, unspecified organism Status: Acute (5) Hypoxia Code(s): R09.02 - Hypoxemia Status: Acute (6) Leukocytosis Code(s): D72.829 - Elevated white blood cell count, unspecified Status: Acute (7) Hyperglycemia Code(s): R73.9 - Hyperglycemia, unspecified Status: Acute (8) Thrombocytopenia Code(s): D69.6 - Thrombocytopenia, unspecified Status: Acute - Assessment and Plan Plan: Plan by systems: Neurologic: Anxiety disorder Borderline personality disorder Substance use disorder Maintain Versed, fentanyl, and propofol infusions for analgesia and sedation, to maintain ventilator synchrony We will avoid acetaminophen 650 mg every 6 hours as needed for temperature greater than 101.0, secondary to elevated liver enzymes utilize cooling blanket if required No Daily sedation vacation at this time secondary to increased FiO2 requirements in order to maintain oxygenation. Immediately post intubation patient was awake GCS 11 T 12/20 urine drug screen-positive for cocaine continue nimbex while on rotaprone bed. will transition off nimbex once on conventional bed. Respiratory: Acute hypoxemic and hypercarbic respiratory failure Bilateral pneumonia Tobacco use disorder ARDS bilateral pulmonary edema- severe Vent settings currently TN VC/AC, 500/22/+12/with FIO2 35, remain supine. transition off RotaProne bed today. Continue to monitor serial chest Xrays and ABG's methylprednisolone 125mg x 1 dose , continued 60 mg every 8 hrs 01/28 Sputum culture- NGTD Legionella, pneumococcal urine antigens-neg Influenza antigens A/Bneg 01/29-intubated 7.5 ETT 22 at the lip 01/28chest x-ray widespread diffuse airspace disease 01/29 chest [id number] inflammatory response Continue methylprednisolone 60 mg every 8hr Pulmonology has been consulted previously prior to intubation following along Chest x-ray pulmonary edema increase lasix to 60mg iv q6h Cardiovascular: Sinus tachycardia- resolved Maintain MAP > 65mmHg arterial line an CVL right IJ-placed 01/28 01/28 Echo EF 40-45%, moderately dilated left ventricle, LAD infarct vs. Taktsubo cardiomyopathy, no vegetations noted PAP 42 Renal: Maintain Garcia to to assess volume status-currently 1 cc/kilo/hour -- Strict I/Os FEN/GI: Hypophosphatemia Hepatitis C Transaminitis Metabolic acidosis-resolving Hypophosphatemia Hypocalcemia Hypernatremia Maintain n.p.o. status for now Dobbhoff in situ Monitor CMP Electrolyte replacement per ICU protocol 02/01 IV fluids discontinued increase free water flushes to 300mL po q4h Heme/ID: Pneumonia Severe sepsis Leukocytosis-resolved ARDS Hepatitis C Thrombocytopenia 01/28-Legionella, mycoplasma, pneumococcal antigens-negative 01/28 sputum culture-negative Monitor CBC ID consulted-Dr. Carballo following, antibiotics per recommendation 01/29 Lactate level -cleared 01/28 Blood rguikcg-frwc-qzwimefm cocci, sputum-MRSA HIV- negative, F/U CD4 levels F/U HCV PCR Obtain heparin platelet antibody Endocrine: Hyperglycemia of critical illness Glucose monitoring per ICU protocol 4 hours-post regimen -- SSI Prophylaxis: GI Prophylaxis famotidine DVT Prophylaxis -- SCDs Lines: Peripheral IVs x3. Arterial line left radial (dc'd 02/01), R IJ CVL 01/29, Right rad arterial line Dispo: My billing statement This patient remains critically ill with one or more organ systems which are or may become a threat to life. I have spent in excess of 44 minutes discontinuously in the care and management of this patient. This time is exclusive of procedures, and includes, but is not limited to, evaluation of the patient, review of the medical record, discussions with family, consultants, nursing staff, or respiratory therapy, and documentation in the medical record. (3) Bilateral pneumonia Qualifiers: Pneumonia type: due to unspecified organism Lung location: unspecified part of lung Qualified Code(s): J18.9 - Pneumonia, unspecified organism (4) Sepsis Qualifiers: Sepsis type: sepsis due to unspecified organism Qualified Code(s): A41.9 - Sepsis, unspecified organism (6) Leukocytosis Qualifiers: Leukocytosis type: unspecified Qualified Code(s): D72.829 - Elevated white blood cell count, unspecified
[2018-02-02] MEDS ORDERED: Sodium Chloride 0.9% 2 ML Flush PRN IV.FLUSH (13:51)
[2018-02-02] MEDS: Sodium Chloride 0.45 % Inj 1,000 ML IV.CONT SCH (15:49)
--- NOTE | 2018-02-02 18:57 | XR ---
EXAM DATE: 02/02/2018 6:54 PM EST AGE/SEX: 32 years / Female INDICATIONS: Dobhoff placement. CLINICAL DATA: This is the patient's subsequent encounter. Patient reports that signs and symptoms h ave been present for 1 week and indicates a pain score of 0/10. MEDICAL/SURGICAL HISTORY: Non-responsive. Non-responsive. COMPARISON: [facility] [place], 01/29/2018. . FINDINGS: There is no feeding tube identified in the visualized portions of the inferior hemithorax and abdomen . General paucity of bowel gas. Remainder of exam is unchanged CONCLUSION: 1. No Dobbhoff feeding tube is identified. Electronically signed by: Carlos Dodge MD Board Certified Radiologist 02/02/2018 6:55 PM ES T
[2018-02-02] MEDS: Azithromycin Inj 500 MG in Sodium Chlor 0.9% Inj 250 ML IV.SIG SCH (20:46)
[2018-02-02] MEDS: Sodium Chloride 0.9% 2 ML Flush BID IV.FLUSH SCH (20:47)
[2018-02-02] MEDS: Enoxaparin Inj 40 MG/0.4 ML Syringe SQ SCH (21:13)
[2018-02-03] MEDS: Propofol 1000 mg/100 ml Inj 1,000 MG/100 ML BOTTLE IV.CONT PRN ×2 (00:46→16:00)
[2018-02-03] MEDS: Midazolam 100 MG/100 ML Inj 100 MG/100 ML BAG IV.CONT PRN (00:48)
[2018-02-03] MEDS: fentaNYL 10 mcg/mL Premix Drip 2,500 MCG/250 ML BAG IV.SIG PRN (00:51)
[2018-02-03] MEDS: Oral Hygiene Kit OROPHARYNG SCH ×4 (00:52→15:59)
--- NOTE | 2018-02-03 01:53 | XR ---
EXAM DATE: 02/03/2018 1:10 AM EST AGE/SEX: 32 years / Female INDICATIONS: OG tube placement. CLINICAL DATA: This is the patient's subsequent encounter. Patient reports that signs and symptoms h ave been present for 1 week and indicates a pain score of Nonresponsive. MEDICAL/SURGICAL HISTORY: Non-responsive. Non-responsive. COMPARISON: [facility] [place], 02/02/2018. . FINDINGS: OG tube tip in the distal stomach near the duodenal bulb. General paucity of bowel gas. Osseous struc tures are intact. CONCLUSION: 1. OG tube tip in the distal stomach near the duodenal bulb. Electronically signed by: Carlos Dodge MD Board Certified Radiologist 02/03/2018 1:52 AM ANDREW Suther[facility]
--- NOTE | 2018-02-03 01:58 | XR ---
EXAM DATE: 02/03/2018 1:12 AM EST AGE/SEX: 32 years / Female INDICATIONS: Shortness of breath. CLINICAL DATA: This is the patient's subsequent encounter. Patient reports that signs and symptoms h ave been present for 1 week and indicates a pain score of Nonresponsive. MEDICAL/SURGICAL HISTORY: Non-responsive. Non-responsive. COMPARISON: [facility], CHEST 1V SINGLE AP, 02/02/2018. . FINDINGS: Stable ETT, NGT and right IJ central line. Improved patchy airspace disease in the upper lung zones a nd right lower lung zone. Cardiomediastinal contours are stable. Remainder of exam is unchanged. CONCLUSION: 1. Stable tubes and lines. 2. Improved patchy airspace consolidation in the upper lung zones bilaterally and right lower lung z one. Electronically signed by: Carlos Dodge MD Board Certified Radiologist 02/03/2018 1:56 AM ANDREW Suther[facility]
[2018-02-03] MEDS: Insulin NovoLIN Regular Correctional Sugar Inj SQ SCH ×5 (03:50→20:39)
[2018-02-03 05:02] LABS: Hematocrit 33.7 % (35.0-46.0); Hemoglobin 11.7 gm/dL (11.6-15.3); Mean Corpuscular HGB Conc 34.7 % (32.0-36.0); Mean Corpuscular Volume 103.7 fL (80.0-100.0); Platelet Count 115 th/mm3 (150-450); Red Blood Count 3.25 mil/mm3 (4.00-5.30); Red Cell Distribution Width 19.2 % (11.6-17.2); White Blood Count 5.6 th/mm3 (4.0-11.0)
[2018-02-03 05:20] LABS: Anion Gap 11 meq/L (5-15); Blood Urea Nitrogen 33 mg/dL (7-18); Calcium 6.8 mg/dL (8.5-10.1); Carbon Dioxide 22.7 meq/L (21.0-32.0); Chloride 118 meq/L (98-107); Glomerular Filtration Rate Greater Than 89 mL/min (>89); Glucose,Random 199 mg/dL (74-106); Magnesium 1.7 mg/dL (1.5-2.5); Phosphorus 2.1 mg/dL (2.5-4.9); Sodium 152 meq/L (136-145)
[2018-02-03 05:27] LABS: Albumin 2.1 g/dL (3.4-5.0); Calcium-Albumin Corrected 8.3 mg/dL (8.5-10.1)
[2018-02-03] MEDS: MethylPREDNISolone Sod Succinate Inj 125 MG/2 ML Vial IV.PUSH SCH ×3 (05:31→20:27)
[2018-02-03] MEDS: Potassium Chlor 40 mEq Premix 40 MEQ/100 ML PIGGYBACK IV.SIG PRN (06:06)
[2018-02-03] MEDS: Sodium Chloride 0.9% 2 ML Flush BID IV.FLUSH SCH ×2 (08:25→20:27)
[2018-02-03] MEDS: Chlorhexidine 0.12% Oral Kit 15 ML UDC OROPHARYNG SCH ×2 (08:25→20:27)
[2018-02-03] MEDS: Famotidine PF Inj 20 MG/2 ML Vial IV.PUSH SCH ×2 (08:25→20:27)
--- NOTE | 2018-02-03 10:09 | P.PNPL ---
Subjective Interval history: Patient is off rotoprone bed. Afebrile. On PRVC with PEEP;8 and FIO2 35%. Sedated with Diprivan/Fentanyl and Versed. Physical Exam Vital signs: Vital Signs 02/02/18 11:00 02/02/18 11:12 02/02/18 12:00 Temperature 102.7 F H Pulse Rate 77 82 Respiratory Rate 22 22 22 Blood Pressure 129/75 128/72 Pulse Oximetry 97 97 97 02/02/18 13:00 02/02/18 14:00 02/02/18 14:58 Temperature Pulse Rate 89 85 85 Respiratory Rate 22 22 22 Blood Pressure 126/70 126/70 Pulse Oximetry 97 97 02/02/18 14:59 02/02/18 15:00 02/02/18 16:00 Temperature 101.0 F H Pulse Rate 82 85 Respiratory Rate 22 19 15 Blood Pressure 113/61 118/67 Pulse Oximetry 97 97 97 02/02/18 17:00 02/02/18 18:00 02/02/18 19:00 Temperature Pulse Rate 80 63 54 L Respiratory Rate 22 22 22 Blood Pressure 116/68 116/69 118/73 Pulse Oximetry 98 99 100 02/02/18 19:29 02/02/18 20:00 02/02/18 21:00 Temperature 98.4 F Pulse Rate 64 69 58 L Respiratory Rate 22 22 22 Blood Pressure 121/67 124/76 Pulse Oximetry 99 99 100 02/02/18 22:00 02/02/18 23:00 02/02/18 23:36 Temperature Pulse Rate 69 50 L 73 Respiratory Rate 22 22 22 Blood Pressure 120/80 131/76 Pulse Oximetry 100 100 02/03/18 00:00 02/03/18 00:04 02/03/18 01:00 Temperature 98.4 F Pulse Rate 89 68 Respiratory Rate 22 23 22 Blood Pressure 130/69 133/80 Pulse Oximetry 99 100 100 02/03/18 02:00 02/03/18 03:00 02/03/18 03:21 Temperature Pulse Rate 51 L 47 L 50 L Respiratory Rate 22 22 22 Blood Pressure 132/76 132/76 Pulse Oximetry 100 100 02/03/18 03:54 02/03/18 04:00 02/03/18 05:00 Temperature 97.6 F Pulse Rate 54 L 85 Respiratory Rate 22 22 23 Blood Pressure 147/82 H 146/81 H Pulse Oximetry 100 100 100 02/03/18 06:00 02/03/18 07:17 Temperature Pulse Rate 51 L 53 L Respiratory Rate 22 22 Blood Pressure 137/77 Pulse Oximetry 100 100 Intake & Output 02/02/18 02/03/18 02/03/18 18:59 06:59 18:59 Intake Total 750 / 750 1562.5 / 1562.5 100 / 100 Output Total 3200 / 3200 2975 / 2975 Balance -2450 / -2450 -1412.5 / -1412.5 100 / 100 Weight 78 kg Intake: IV 750 / 750 962.5 / 962.5 100 / 100 Nimbex Inj 100 MG In NS Inj 240 450 / 450 ML @ 1 MCG/KG/MIN 9.99 mls/hr IV.CONT TITRATE PRN Rx#: [id number] Versed Inj 100 mg In 100 ml @ 2 200 / 200 100 / 100 MG/HR 2 mls/hr IV.CONT TITRATE PRN Rx#:[id number] Diprivan 1000 mg/100 ml Inj 1, 100 / 100 100 / 100 000 mg In 100 ml @ 5 MCG/KG/MIN 1.998 mls/hr IV.CONT TITRATE PRN Rx#:[id number] Azithromycin Inj 500 MG In NS 250 / 250 Inj 250 ML @ 250 mls/hr IV.SIG Q24H [facility] Rx#:[id number] KCl 40 mEq Premix Inj 40 meq In 100 / 100 100 ml @ 25 mls/hr IV.SIG Q2H [facility] Rx#:[id number] Vancomycin Inj 1,250 MG In NS 262.5 / 262.5 Inj 250 ML @ 250 mls/hr IV.SIG Q18H [facility] Rx#:[id number] fentaNYL 10 mcg/mL Premix Drip 250 / 250 2,500 mcg In 250 ml @ 50 MCG/HR 5 mls/hr IV.SIG TITRATE PRN Rx #:[id number] Water Bolus Amount 600 / 600 Output: Stool 0 / 0 Urine Amount (Catheter) 3200 / 3200 2975 / 2975 Indwelling Urethral Catheter 3200 / 3200 2975 / 2975 - Constitutional no acute distress - Routine HEENT Exam Head: Present: normocephalic, atraumatic Eye: Present: EOMI, PERRL, normal accommodation, conjunctivae pink - Routine Neck Exam Present: supple, full ROM, trachea midline - Routine Respiratory Exam Present: patient mechanically ventilated, CTA bilaterally - Routine Cardiovascular Exam Present: RRR, S1, S2 - Routine Abdominal Exam Present: soft, normoactive bowel sounds - Routine Extremities Exam Present: pulses intact - Routine Skin Exam Present: intact, dry - Routine Neurological Exam Present: altered mental status - Urinary Catheter Management Indwelling Urethral Catheter Cath placed during this visit: yes Reason for continuing: Other continuation reason Insertion date: 01/29/18 Insertion time: 07:15 Assessment and Plan - Assessment (1) Acute respiratory failure with hypoxia and hypercarbia Code(s): J96.01 - Acute respiratory failure with hypoxia; J96.02 - Acute respiratory failure with hypercapnia Status: Acute (2) Hepatitis Code(s): K75.9 - Inflammatory liver disease, unspecified Status: Acute (3) Bilateral pneumonia Code(s): J18.9 - Pneumonia, unspecified organism Status: Acute Qualifiers: Pneumonia type: due to unspecified organism Lung location: unspecified part of lung Qualified Code(s): J18.9 - Pneumonia, unspecified organism (4) Sepsis Code(s): A41.9 - Sepsis, unspecified organism Status: Acute Qualifiers: Sepsis type: sepsis due to unspecified organism Qualified Code(s): A41.9 - Sepsis, unspecified organism (5) Hypoxia Code(s): R09.02 - Hypoxemia Status: Acute (6) Leukocytosis Code(s): D72.829 - Elevated white blood cell count, unspecified Status: Acute Qualifiers: Leukocytosis type: unspecified Qualified Code(s): D72.829 - Elevated white blood cell count, unspecified (7) Hyperglycemia Code(s): R73.9 - Hyperglycemia, unspecified Status: Acute (8) Thrombocytopenia Code(s): D69.6 - Thrombocytopenia, unspecified Status: Acute - Plan 1. VDRF 2. s/p ARDS 3. MRSA pneumonia. 4. Staphylococcus aureus bacteremia. 5. Hepatitis C. 6. Anemia. 7. Thrombocytopenia. 8. Hypernatremia. Plan Continue with sedation. Daily sedation vacation. Monitor neuro status. Continue vent support and maintain sats >92%. Bronchodilators, ICU vent bundle. Start SBT daily. Solu-Medrol 60 mg IV q.8. Patient is off rotoprone bed on PRVC with PEEP: 8 and FIO2: 35% CXR today-Improved patchy airspace consolidation in the upper lung zones bilaterally and right lower lung zone. Continue diuretics- on Lasix 60mg Q6, electrolytes replacement per protocol. Abx per ID -cefepime, vancomycin, and azithromycin. 01/28 BC: Staph Aureus. Sputum cx: MRSA 01/29. Influenza screening negative on 01/28, Strep pneumonia and Legionella urinary Ag negative on 01/29 Follow up on BC from 02/02. Recheck sputum cx GI/DVT prophylaxis. on Pepcid 20 mg q.12 and Lovenox 40 mg subcutaneous daily.
--- NOTE | 2018-02-03 12:26 | P.PNID ---
Subjective Remarks: Patient is on the ventilator on 35% FiO2. Appears comfortable. No longer requiring Rotobed. Afebrile so far today. Had fevers yesterday. Lung infiltrates improved. Repeat blood culture is pending. 32-year-old white female who presented to the emergency department yesterday evening with respiratory symptoms. Emergency department report stated that the patient developed symptoms about a week ago consisting of body aches, nausea, vomiting, diarrhea, fever, chills, and sweats. She was seen at an urgent care center about a week ago and was diagnosed with flu. She subsequently developed a sore throat and pain on swallowing and loss of the voice as well as nonproductive cough. Her energy level is also reported to be very low. The patient was seen in the emergency department and temperature was 98.6, heart rate was elevated at 122, and white count was elevated at 20.8. She was put on nonrebreather mask and oxygen saturation was noted to be between 88% and 92%. The patient was subsequently intubated. Antibiotics: Cefepime Azithromycin Vancomycin Past Medical History: PAST MEDICAL HISTORY: Reportedly negative. The patient has been evaluated for psychiatric adjustment disorder. Allergies/Adverse Reactions: Allergies Sulfa (Sulfonamide Antibiotics) Allergy (Intermediate, Verified 05/14/17 22:25) PT STATES INCREASES HER TEMP Objective Vital Signs 02/02/18 13:00 02/02/18 14:00 02/02/18 14:58 Temperature Pulse Rate 89 85 85 Respiratory Rate 22 22 22 Blood Pressure 126/70 126/70 Pulse Oximetry 97 97 02/02/18 14:59 02/02/18 15:00 02/02/18 16:00 Temperature 101.0 F H Pulse Rate 82 85 Respiratory Rate 22 19 15 Blood Pressure 113/61 118/67 Pulse Oximetry 97 97 97 02/02/18 17:00 02/02/18 18:00 02/02/18 19:00 Temperature Pulse Rate 80 63 54 L Respiratory Rate 22 22 22 Blood Pressure 116/68 116/69 118/73 Pulse Oximetry 98 99 100 02/02/18 19:29 02/02/18 20:00 02/02/18 21:00 Temperature 98.4 F Pulse Rate 64 69 58 L Respiratory Rate 22 22 22 Blood Pressure 121/67 124/76 Pulse Oximetry 99 99 100 02/02/18 22:00 02/02/18 23:00 02/02/18 23:36 Temperature Pulse Rate 69 50 L 73 Respiratory Rate 22 22 22 Blood Pressure 120/80 131/76 Pulse Oximetry 100 100 02/03/18 00:00 02/03/18 00:04 02/03/18 01:00 Temperature 98.4 F Pulse Rate 89 68 Respiratory Rate 22 23 22 Blood Pressure 130/69 133/80 Pulse Oximetry 99 100 100 02/03/18 02:00 02/03/18 03:00 02/03/18 03:21 Temperature Pulse Rate 51 L 47 L 50 L Respiratory Rate 22 22 22 Blood Pressure 132/76 132/76 Pulse Oximetry 100 100 02/03/18 03:54 02/03/18 04:00 02/03/18 05:00 Temperature 97.6 F Pulse Rate 54 L 85 Respiratory Rate 22 22 23 Blood Pressure 147/82 H 146/81 H Pulse Oximetry 100 100 100 02/03/18 06:00 02/03/18 07:17 02/03/18 10:24 Temperature Pulse Rate 51 L 53 L Respiratory Rate 22 22 22 Blood Pressure 137/77 Pulse Oximetry 100 100 100 Intake & Output 02/02/18 02/03/18 02/03/18 18:59 06:59 18:59 Intake Total 750 / 750 1562.5 / 1562.5 100 / 100 Output Total 3200 / 3200 2975 / 2975 Balance -2450 / -2450 -1412.5 / -1412.5 100 / 100 Weight 78 kg Intake: IV 750 / 750 962.5 / 962.5 100 / 100 Nimbex Inj 100 MG In NS Inj 240 450 / 450 ML @ 1 MCG/KG/MIN 9.99 mls/hr IV.CONT TITRATE PRN Rx#: [id number] Versed Inj 100 mg In 100 ml @ 2 200 / 200 100 / 100 MG/HR 2 mls/hr IV.CONT TITRATE PRN Rx#:[id number] Diprivan 1000 mg/100 ml Inj 1, 100 / 100 100 / 100 000 mg In 100 ml @ 5 MCG/KG/MIN 1.998 mls/hr IV.CONT TITRATE PRN Rx#:[id number] Azithromycin Inj 500 MG In NS 250 / 250 Inj 250 ML @ 250 mls/hr IV.SIG Q24H [facility] Rx#:[id number] KCl 40 mEq Premix Inj 40 meq In 100 / 100 100 ml @ 25 mls/hr IV.SIG Q2H PRN Rx#:[id number] Vancomycin Inj 1,250 MG In NS 262.5 / 262.5 Inj 250 ML @ 250 mls/hr IV.SIG Q18H [facility] Rx#:[id number] fentaNYL 10 mcg/mL Premix Drip 250 / 250 2,500 mcg In 250 ml @ 50 MCG/HR 5 mls/hr IV.SIG TITRATE PRN Rx #:[id number] Water Bolus Amount 600 / 600 Output: Stool 0 / 0 Urine Amount (Catheter) 3200 / 3200 2975 / 2975 Indwelling Urethral Catheter 3200 / 3200 2975 / 2975 02/02/18 03:40 Blood - Peripheral Aerobic Blood Culture - Preliminary No growth in 1 day 02/02/18 03:40 Blood - Peripheral Anaerobic Blood Culture - Preliminary No growth in 1 day 02/02/18 03:05 Blood - Peripheral Aerobic Blood Culture - Preliminary No growth in 1 day 02/02/18 03:05 Blood - Peripheral Anaerobic Blood Culture - Preliminary No growth in 1 day 01/28/18 18:50 Blood - Peripheral Aerobic Blood Culture - Final No growth in 5 days 01/28/18 18:50 Blood - Peripheral Anaerobic Blood Culture - Final No growth in 5 days 01/28/18 18:40 Blood - Peripheral Aerobic Blood Culture - Final Staphylococcus aureus 01/28/18 18:40 Blood - Peripheral Anaerobic Blood Culture - Final Staphylococcus aureus 01/29/18 09:22 Sputum - Endotracheal Gram Stain - Final 01/29/18 09:22 Sputum - Endotracheal Sputum Culture - Final S. aureus MRSA Lab - Hematology Results 02/02/18 02/03/18 03:05 03:45 WBC 7.2 5.6 RBC 3.08 L 3.25 L Hgb 10.8 L 11.7 Hct 32.3 L 33.7 L MCV 105.1 H 103.7 H MCH 35.1 H 36.0 H MCHC 33.4 34.7 RDW 20.2 H 19.2 H Plt Count 136 L D 115 L MPV 8.6 9.0 Prelim Diff (Auto) Slide review pending Neut % (Auto) 83.0 H Lymph % (Auto) 5.7 L Taney % (Auto) 11.1 H Eos % (Auto) 0.0 Baso % (Auto) 0.2 Neut # (Auto) 6.0 Lymph # (Auto) 0.4 L Taney # (Auto) 0.8 Eos # (Auto) 0.0 Baso # (Auto) 0.0 WBC Differential . Diff Scan Auto diff confirmed Differential Comment . Platelet Estimate Low L Platelet Morphology Normal RBC Morphology Normal Lab - Chemistry Results 02/01/18 02/01/18 02/01/18 12:25 17:15 20:50 Sodium Potassium Chloride Carbon Dioxide Anion Gap BUN Creatinine Estimated GFR POC Glucose 157 H 144 H 165 H Random Glucose Calcium Calcium Adj for Albumin Phosphorus Magnesium Albumin 02/02/18 02/02/18 02/02/18 02:32 03:05 08:07 Sodium 152 H Potassium 3.8 Chloride 123 H Carbon Dioxide 19.6 L Anion Gap 9 BUN 29 H Creatinine 0.65 Estimated GFR Greater than 89 POC Glucose 130 H 184 H Random Glucose 157 H Calcium 5.4 L* Calcium Adj for Albumin 7.2 L* Phosphorus 1.6 L Magnesium 1.7 Albumin 1.7 L 02/02/18 02/02/18 02/02/18 12:06 16:49 21:04 Sodium Potassium Chloride Carbon Dioxide Anion Gap BUN Creatinine Estimated GFR POC Glucose 183 H 148 H 148 H Random Glucose Calcium Calcium Adj for Albumin Phosphorus Magnesium Albumin 02/03/18 02/03/18 02/03/18 03:45 03:50 08:11 Sodium 152 H Potassium 3.0 L D Chloride 118 H Carbon Dioxide 22.7 Anion Gap 11 BUN 33 H Creatinine 0.57 Estimated GFR Greater than 89 POC Glucose 174 H 187 H Random Glucose 199 H Calcium 6.8 L* D Calcium Adj for Albumin 8.3 L D Phosphorus 2.1 L Magnesium 1.7 Albumin 2.1 L 02/03/18 11:19 Sodium Potassium Chloride Carbon Dioxide Anion Gap BUN Creatinine Estimated GFR POC Glucose 185 H Random Glucose Calcium Calcium Adj for Albumin Phosphorus Magnesium Albumin Imaging: ITS Impressions Chest CT 01/28/18 18:20 CONCLUSION: Extensive bilateral airspace disease Abdomen X-Ray 02/03/18 00:37 CONCLUSION: 1. OG tube tip in the distal stomach near the duodenal bulb. Chest X-Ray 02/03/18 05:00 CONCLUSION: 1. Stable tubes and lines. 2. Improved patchy airspace consolidation in the upper lung zones bilaterally and right lower lung zone. Physical Exam: GENERAL: Intubated. No acute distress. HEENT: Pupils reactive to light. No icterus. NECK: No adenopathy or swelling. LUNGS: Bilateral rhonchi. HEART: Normal S1 and S2, without audible murmurs, rubs, or gallops. ABDOMEN: Decreased bowel sounds. Soft, nontender. No palpable mass. EXTREMITIES: No clubbing. No cyanosis, trace edema.. SKIN: No rash. warm and moist. NEUROLOGIC: Unable to assess. PSYCHIATRIC: Unable to assess. Lines without evidence of infection. Assessment and Plan - Plan IMPRESSION: 1. Bilateral pneumonia. MRSA on sputum culture. 2. Bacteremia. Staph aureus. MSSA. 3. Hypoxia. 4. Acute respiratory failure. 5. Elevated liver function tests. Improved. 6. Leukocytosis. Resolved. 7. ALLERGY TO SULFA. Appears to be improving. RECOMMENDATIONS: 1. Continue cefepime. 2. Continue azithromycin. 3. Continue vancomycin. 4. Follow repeat the blood cultures. 5. Monitor clinical status. 6. Monitor temperature.
--- NOTE | 2018-02-03 14:36 | P.PNCC ---
Subjective Subjective Remarks/Hospital Course: 01/30: The patient's oxygenation moved by midday 01/29, and the patient was transferred via ambulance to [facility]. On her arrival the patient had a CVL placed, echo performed peer and the patient was placed on prone bed for prone positioning. Upon prone positioning, the patient's O2 saturation improved. FiO2 currently is at 60% when patient is in prone position with O2 sat of 100%. The patient remains deeply sedated with neuromuscular blockade Nemex for prone positioning. Urine output is equivalent to 1 cc/kg/h the patient was noted to have a metabolic acidosis this a.m., 50 mEq of sodium bicarbonate was given, IV fluids changed to one half normal saline at 100 cc/ hour. Noted lactic acidemia now resolved. One bottle blood culture showed gram -positive cocci. Discussed with patient's mother and permission granted to obtain HIV labs, deemed medically necessary per ID Dr. Carballo. 01/31: Decreasing FiO2 requirements at this time. Chest x-ray suggestive of interstitial edema, Lasix 40 mg x1 dose provided. IV fluids decreased to 42 cc/ hr . Secondary to prone positioning StatLock removed and central line sutured in place, to prevent possible dislodgment and prone position. Cultures revealed sputum MRSA, and blood gram-positive cocci. HIV testing labs negative. 02/01: Noted improvement clinically and respiratory status O2 requirements have been decreased 0.45% and a PEEP of 8. Patient noted to have a positive fluid balance was diuresed yesterday, chest x-ray shows persistent pulmonary edema Lasix dosing increased to twice daily IV fluids have now been discontinued. Noted thrombocytopenia, heparin platelet antibody has been ordered. Colitis currently being replaced. 02/02: fio2 continues to improve. supinated today and remains stable x 8 hrs. can likely transition off RotaProne bed today. continues to be very volume overloaded, although adequate start to diuresis yesterday. 02/03: The patient was removed from rota prone bread at 1800 yesterday. The patient continues to improve oxygenation. Versed continually being weaned down in anticipation for CPAP trials. Dietary consult has been initiated for tube feeds. Objective Vital Signs / I&O: Vital Signs 02/02/18 14:58 02/02/18 14:59 02/02/18 15:00 Temperature Pulse Rate 85 82 Respiratory Rate 22 22 19 Blood Pressure 113/61 Pulse Oximetry 97 97 12/25/18 16:00 02/02/18 17:00 02/02/18 18:00 Temperature 101.0 F H Pulse Rate 85 80 63 Respiratory Rate 15 22 22 Blood Pressure 118/67 116/68 116/69 Pulse Oximetry 97 98 99 02/02/18 19:00 02/02/18 19:29 02/02/18 20:00 Temperature 98.4 F Pulse Rate 54 L 64 69 Respiratory Rate 22 22 22 Blood Pressure 118/73 121/67 Pulse Oximetry 100 99 99 02/02/18 21:00 02/02/18 22:00 02/02/18 23:00 Temperature Pulse Rate 58 L 69 50 L Respiratory Rate 22 22 22 Blood Pressure 124/76 120/80 131/76 Pulse Oximetry 100 100 100 02/02/18 23:36 02/03/18 00:00 02/03/18 00:04 Temperature 98.4 F Pulse Rate 73 89 Respiratory Rate 22 22 23 Blood Pressure 130/69 Pulse Oximetry 99 100 02/03/18 01:00 02/03/18 02:00 02/03/18 03:00 Temperature Pulse Rate 68 51 L 47 L Respiratory Rate 22 22 22 Blood Pressure 133/80 132/76 132/76 Pulse Oximetry 100 100 100 02/03/18 03:21 02/03/18 03:54 02/03/18 04:00 Temperature 97.6 F Pulse Rate 50 L 54 L Respiratory Rate 22 22 22 Blood Pressure 147/82 H Pulse Oximetry 100 100 02/03/18 05:00 02/03/18 06:00 02/03/18 07:00 Temperature Pulse Rate 85 51 L 52 L Respiratory Rate 23 22 22 Blood Pressure 146/81 H 137/77 141/83 H Pulse Oximetry 100 100 100 02/03/18 07:17 02/03/18 08:00 02/03/18 09:00 Temperature 99.0 F Pulse Rate 53 L 66 76 Respiratory Rate 22 22 22 Blood Pressure 145/82 H 132/86 Pulse Oximetry 100 100 99 02/03/18 10:00 02/03/18 10:24 02/03/18 11:00 Temperature Pulse Rate 97 H 82 Respiratory Rate 22 22 22 Blood Pressure 140/87 142/83 H Pulse Oximetry 99 100 96 02/03/18 12:00 12/26/18 13:21 Temperature 98.6 F Pulse Rate 86 Respiratory Rate 23 11 L Blood Pressure 134/77 Pulse Oximetry 98 100 Intake & Output 02/02/18 02/03/18 02/03/18 18:59 06:59 18:59 Intake Total 750 / 750 1562.5 / 1562.5 100 / 100 Output Total 3200 / 3200 2975 / 2975 Balance -2450 / -2450 -1412.5 / -1412.5 100 / 100 Weight 78 kg Intake: IV 750 / 750 962.5 / 962.5 100 / 100 Nimbex Inj 100 MG In NS Inj 240 450 / 450 ML @ 1 MCG/KG/MIN 9.99 mls/hr IV.CONT TITRATE PRN Rx#: [id number] Versed Inj 100 mg In 100 ml @ 2 200 / 200 100 / 100 MG/HR 2 mls/hr IV.CONT TITRATE PRN Rx#:[id number] Diprivan 1000 mg/100 ml Inj 1, 100 / 100 100 / 100 000 mg In 100 ml @ 5 MCG/KG/MIN 1.998 mls/hr IV.CONT TITRATE PRN Rx#:[id number] Azithromycin Inj 500 MG In NS 250 / 250 Inj 250 ML @ 250 mls/hr IV.SIG Q24H [facility] Rx#:[id number] KCl 40 mEq Premix Inj 40 meq In 100 / 100 100 ml @ 25 mls/hr IV.SIG Q2H [facility]N Rx#:[id number] Vancomycin Inj 1,250 MG In NS 262.5 / 262.5 Inj 250 ML @ 250 mls/hr IV.SIG Q18H [facility] Rx#:[id number] fentaNYL 10 mcg/mL Premix Drip 250 / 250 2,500 mcg In 250 ml @ 50 MCG/HR 5 mls/hr IV.SIG TITRATE PRN Rx #:[id number] Water Bolus Amount 600 / 600 Output: Stool 0 / 0 Urine Amount (Catheter) 3200 / 3200 2975 / 2975 Indwelling Urethral Catheter 3200 / 3200 2975 / 2975 Result Diagrams: 02/03/18 03:45 02/03/18 03:45 Objective Remarks: GENERAL: young female, lying in bed, intubated, sedated critically ill. SKIN: Warm and dry. HEAD: Atraumatic. Normocephalic. EYES: Pupils equal and round. No scleral icterus. No injection or drainage. ENT: No nasal bleeding or discharge. Mucous membranes pink and moist. NECK: Trachea midline. No JVD. CARDIOVASCULAR: Normal rate, regular rhythm. sinus. RESPIRATORY: No accessory muscle use. Coarse rhonchi. Breath sounds equal bilaterally. Bilateral chest excursion. GASTROINTESTINAL: Abdomen soft, non-tender, nondistended. No guarding. MUSCULOSKELETAL: Extremities without clubbing, cyanosis, 1+ generalized edema. No obvious deformities. NEUROLOGICAL: Intubated and and sedated. Neuromuscular blockade discontinued yesterday. Patient opens eyes to voice. Procedures: 01/31: Sutured right IJ, StatLock removed. Assessment and Plan - Problem List (1) Acute respiratory failure with hypoxia and hypercarbia Code(s): J96.01 - Acute respiratory failure with hypoxia; J96.02 - Acute respiratory failure with hypercapnia Status: Acute (2) Hepatitis Code(s): K75.9 - Inflammatory liver disease, unspecified Status: Acute (3) Bilateral pneumonia Code(s): J18.9 - Pneumonia, unspecified organism Status: Acute (4) Sepsis Code(s): A41.9 - Sepsis, unspecified organism Status: Acute (5) Hypoxia Code(s): R09.02 - Hypoxemia Status: Acute (6) Leukocytosis Code(s): D72.829 - Elevated white blood cell count, unspecified Status: Acute (7) Hyperglycemia Code(s): R73.9 - Hyperglycemia, unspecified Status: Acute (8) Thrombocytopenia Code(s): D69.6 - Thrombocytopenia, unspecified Status: Acute - Assessment and Plan Plan: Plan by systems: Neurologic: Anxiety disorder Borderline personality disorder Substance use disorder Maintain Versed, fentanyl, and propofol infusions for analgesia and sedation, to maintain ventilator synchrony. And to wean Versed off We will avoid acetaminophen 650 mg every 6 hours as needed for temperature greater than 101.0, secondary to elevated liver enzymes utilize cooling blanket if required No Daily sedation vacation at this time secondary to increased FiO2 requirements in order to maintain oxygenation. Immediately post intubation patient was awake GCS 11 T 1220 urine drug screen-positive for cocaine 02/02-transitioned to supine bed Respiratory: Acute hypoxemic and hypercarbic respiratory failure Bilateral pneumonia Tobacco use disorder ARDS bilateral pulmonary edema- severe Vent settings currently IL VC/AC, 500/22/+12/with FIO2 35, remain supine. transition off RotaProne bed today. Continue to monitor serial chest Xrays and ABG's methylprednisolone 125mg x 1 dose , continued 60 mg every 8 hrs 01/28 Sputum culture- NGTD Legionella, pneumococcal urine antigens-neg Influenza antigens A/Bneg 01/29-intubated 7.5 ETT 22 at the lip 01/28chest x-ray widespread diffuse airspace disease 01/29 chest [id number] inflammatory response Continue methylprednisolone 60 mg every 8hr Pulmonology has been consulted previously prior to intubation following along Chest x-ray pulmonary edema increase lasix to 60mg iv q6h 02/03-begin CPAP trials clinically tolerated Cardiovascular: Sinus tachycardia- resolved Maintain MAP > 65mmHg arterial line an CVL right IJ-placed 01/28 01/28 Echo EF 40-45%, moderately dilated left ventricle, LAD infarct vs. Taktsubo cardiomyopathy, no vegetations noted PAP 42 Renal: Maintain Garcia to to assess volume status-currently 1 cc/kilo/hour -- Strict I/Os FEN/GI: Hypophosphatemia Hepatitis C Transaminitis Metabolic acidosis-resolving Hypophosphatemia Hypocalcemia Hypernatremia Maintain n.p.o. status for now Dobbhoff in situ Monitor CMP Electrolyte replacement per ICU protocol 02/01 IV fluids discontinued increase free water flushes to 300mL po q4h Heme/ID: Pneumonia Severe sepsis Leukocytosis-resolved ARDS Hepatitis C Thrombocytopenia 01/28-Legionella, mycoplasma, pneumococcal antigens-negative 01/28 sputum culture-negative Monitor CBC ID consulted-Dr. Carballo following, antibiotics per recommendation 01/29 Lactate level -cleared 01/28 Blood zobegyn-ttup-jumcniot cocci, sputum-MRSA HIV- negative, F/U CD4 levels F/U HCV PCR 02/02 Heparin platelet antibody-negative Endocrine: Hyperglycemia of critical illness Glucose monitoring per ICU protocol 4 hours-post regimen -- SSI Prophylaxis: GI Prophylaxis famotidine DVT Prophylaxis -- SCDs Lines: Peripheral IVs x3. Arterial line left radial (dc'd 02/01), R IJ CVL 01/29, Right rad arterial line Dispo: My billing statement This patient remains critically ill with one or more organ systems which are or may become a threat to life. I have spent in excess of 39 minutes discontinuously in the care and management of this patient. This time is exclusive of procedures, and includes, but is not limited to, evaluation of the patient, review of the medical record, discussions with family, consultants, nursing staff, or respiratory therapy, and documentation in the medical record. Code Status: Full Discussed Condition With: Discussed with ACCOUNTANT CONTROLLER at bedside. Patient's mother, patient's grandmother and grandfather at bedside medical status update provided (3) Bilateral pneumonia Qualifiers: Pneumonia type: due to unspecified organism Lung location: unspecified part of lung Qualified Code(s): J18.9 - Pneumonia, unspecified organism (4) Sepsis Qualifiers: Sepsis type: sepsis due to unspecified organism Qualified Code(s): A41.9 - Sepsis, unspecified organism (6) Leukocytosis Qualifiers: Leukocytosis type: unspecified Qualified Code(s): D72.829 - Elevated white blood cell count, unspecified
[2018-02-03] MEDS ORDERED: Pharmacy Ordered Lab Info OTHER ONE (14:45)
[2018-02-03] MEDS: Vancomycin Inj 1,250 MG in Sodium Chlor 0.9% Inj 250 ML IV.SIG SCH (15:59)
[2018-02-03 18:28] LABS: Magnesium 1.7 mg/dL (1.5-2.5); Phosphorus 1.3 mg/dL (2.5-4.9); Potassium 3.4 meq/L (3.5-5.1)
[2018-02-03] MEDS: Potassium Phosphate 500 MG Soluble Tablet PO PRN (18:43)
[2018-02-03] MEDS ORDERED: Dexmedetomidine Inj 200 MCG in Sodium Chlor 0.9% Inj 48 ML IV.CONT PRN (19:21)
[2018-02-03] MEDS: Azithromycin Inj 500 MG in Sodium Chlor 0.9% Inj 250 ML IV.SIG SCH (20:25)
[2018-02-03] MEDS: Enoxaparin Inj 40 MG/0.4 ML Syringe SQ SCH (21:11)
[2018-02-04] MEDS: Oral Hygiene Kit OROPHARYNG SCH ×4 (01:04→15:12)
[2018-02-04] MEDS: fentaNYL 10 mcg/mL Premix Drip 2,500 MCG/250 ML BAG IV.SIG PRN (01:06)
[2018-02-04] MEDS: Propofol 1000 mg/100 ml Inj 1,000 MG/100 ML BOTTLE IV.CONT PRN ×2 (02:12→07:39)
[2018-02-04] MEDS: Insulin NovoLIN Regular Correctional Sugar Inj SQ SCH ×5 (02:53→22:43)
[2018-02-04 06:53] LABS: Hematocrit 30.5 % (35.0-46.0); Hemoglobin 10.4 gm/dL (11.6-15.3); Mean Corpuscular Hemoglobin 35.6 pg (27.0-34.0); Mean Corpuscular Volume 104.7 fL (80.0-100.0); Platelet Count 125 th/mm3 (150-450); Red Blood Count 2.91 mil/mm3 (4.00-5.30); White Blood Count 8.3 th/mm3 (4.0-11.0)
[2018-02-04] MEDS: MethylPREDNISolone Sod Succinate Inj 125 MG/2 ML Vial IV.PUSH SCH (07:22)
[2018-02-04 07:29] LABS: Anion Gap 7 meq/L (5-15); Blood Urea Nitrogen 28 mg/dL (7-18); Calcium 6.7 mg/dL (8.5-10.1); Carbon Dioxide 28.7 meq/L (21.0-32.0); Chloride 117 meq/L (98-107); Glomerular Filtration Rate Greater Than 89 mL/min (>89); Glucose,Random 158 mg/dL (74-106); Magnesium 1.7 mg/dL (1.5-2.5); Phosphorus 2.1 mg/dL (2.5-4.9); Potassium 3.3 meq/L (3.5-5.1); Sodium 153 meq/L (136-145)
[2018-02-04 07:38] LABS: Albumin 2.2 g/dL (3.4-5.0); Calcium-Albumin Corrected 8.1 mg/dL (8.5-10.1)
[2018-02-04] MEDS: Chlorhexidine 0.12% Oral Kit 15 ML UDC OROPHARYNG SCH ×2 (07:38→20:28)
[2018-02-04] MEDS: Vancomycin Inj 1,250 MG in Sodium Chlor 0.9% Inj 250 ML IV.SIG SCH (08:16)
[2018-02-04] MEDS: Sodium Chloride 0.9% 2 ML Flush BID IV.FLUSH SCH ×2 (08:16→20:28)
[2018-02-04] MEDS: Famotidine PF Inj 20 MG/2 ML Vial IV.PUSH SCH ×2 (08:16→20:28)
[2018-02-04] MEDS: Potassium Chloride 25 MEQ Effervescent Tablet PO PRN (09:29)
--- NOTE | 2018-02-04 10:02 | P.DIET ---
Nutritional Evaluation Type of nutrition evaluation: follow-up Nutrition consult regarding: Tube Feeding Nutrition screening: [facility] [place] Screening comments: [facility] [place] 01/31/1802/03 [facility] [place] for TF'ing Objective - Diagnosis Bilateral Pneumonia w/Hypoxia, Sepsis, Leukocytosis - Objective % IBW: 109 Body Weight Used for Calculations: Actual (66.6 kg) Energy Needs - Lower Range (kCal/kg): 25 Energy Needs - Upper Range (kCal/kg): 30 Lower Limit kCal/kg (kCals): 1,665 Upper Limit kCal/kg (kCals): 1,998 Lower Limit Protein Factor (Grams per Kg): 1.1 Upper Limit Protein Factor (Grams per Kg): 1.3 Lower Protein Needs (Protein): 73 Upper Protein Needs (Protein): 87 Dietitian Reviewed in Medical Record: Curent medications, Intake & Output, Labs , Medical history Diet Order: NPO Objective Comments: PMH includes: Hep C, borderline personality, anxiety Meds include: Propofol, fentanyl Labs: Na 153, K 3.3, BUN 28, POC glucose 185, 161 159 LBM 01/29, UOP 1275mL Assessment Assessment: Pt remains at high nutritional risk r/t diagnosis and need for TF'ing. Pt continues to be intubated/sedated on propofol, off versed now for anticipated CPAP trials. Pt off rotaprone bed now and ready for TF'ing, [facility] [place] for TF'ing received 02/03. RD continues to recommend Jevity 1.5 @ 50mL/hr as goal rate to provide 1800 kcal, 77g protein and 912ml free water. Propofol provides some additional kcals(1.1 kcal/ml)when running. Labs reviewed. Additional Recs to follow r/t Clinical Course. Recommendations: 1. RD continues to recommend Jevity 1.5 @ 50mL/hr as goal rate 2. Propofol provides some additional kcals(1.1 kcal/ml)when running 3. Additional Recs to follow r/t Clinical Course Dietitian to Monitor: Lab values, Intake & Output, Tube feeding tolerance, Weight change, Medical course
[2018-02-04 10:06] LABS: ABG Base Excess 5.5 mmol/L (-2-2); ABG PCO2 38 mmHg (38-42); ABG PO2 109 mmHG (61-120)
--- NOTE | 2018-02-04 10:16 | XR ---
EXAM DATE: 02/04/2018 10:13 AM EST AGE/SEX: 32 years / Female INDICATIONS: Respiratory failure CLINICAL DATA: This is the patient's subsequent encounter. Patient reports that signs and symptoms h ave been present for 1 week and indicates a pain score of Nonresponsive. MEDICAL/SURGICAL HISTORY: Non-responsive. Non-responsive. [place] [facility] [place]03/2018. . FINDINGS: Today's exam is compared to the prior study. The support devices remain in place. There is no pneumot horax. There continues to be some patchy airspace disease in both lung bases, right greater than left . This pattern is essentially stable compared to the prior examination. There continues to be some mi ld pulmonary venous congestion. Heart size is stable. No significant pleural effusions. CONCLUSION: No significant interval change compared to the prior examination. Electronically signed by: Francis Corley MD Board Certified Radiologist 02/04/2018 10:15 AM EST
--- NOTE | 2018-02-04 10:45 | P.PNCC ---
Subjective Subjective Remarks/Hospital Course: 01/30: The patient's oxygenation moved by midday 01/29, and the patient was transferred via ambulance to [facility]. On her arrival the patient had a CVL placed, echo performed peer and the patient was placed on prone bed for prone positioning. Upon prone positioning, the patient's O2 saturation improved. FiO2 currently is at 60% when patient is in prone position with O2 sat of 100%. The patient remains deeply sedated with neuromuscular blockade Nemex for prone positioning. Urine output is equivalent to 1 cc/kg/h the patient was noted to have a metabolic acidosis this a.m., 50 mEq of sodium bicarbonate was given, IV fluids changed to one half normal saline at 100 cc/ hour. Noted lactic acidemia now resolved. One bottle blood culture showed gram -positive cocci. Discussed with patient's mother and permission granted to obtain HIV labs, deemed medically necessary per ID Dr. Carballo. 01/31: Decreasing FiO2 requirements at this time. Chest x-ray suggestive of interstitial edema, Lasix 40 mg x1 dose provided. IV fluids decreased to 42 cc/ hr . Secondary to prone positioning StatLock removed and central line sutured in place, to prevent possible dislodgment and prone position. Cultures revealed sputum MRSA, and blood gram-positive cocci. HIV testing labs negative. 02/01: Noted improvement clinically and respiratory status O2 requirements have been decreased 0.45% and a PEEP of 8. Patient noted to have a positive fluid balance was diuresed yesterday, chest x-ray shows persistent pulmonary edema Lasix dosing increased to twice daily IV fluids have now been discontinued. Noted thrombocytopenia, heparin platelet antibody has been ordered. Colitis currently being replaced. 02/02: fio2 continues to improve. supinated today and remains stable x 8 hrs. can likely transition off RotaProne bed today. continues to be very volume overloaded, although adequate start to diuresis yesterday. 02/03: The patient was removed from rota prone bread at 1800 yesterday. The patient continues to improve oxygenation. Versed continually being weaned down in anticipation for CPAP trials. Dietary consult has been initiated for tube feeds. 02/04: Afebrile. the patient remained on CPAP trials throughout yesterday afternoon, placed back on a rate last evening. CPAP trials have been reinitiated this a.m. SBT parameters currently being obtain ABG within normal limits plan for possible extubation today Objective Vital Signs / I&O: Vital Signs 02/03/18 10:24 02/03/18 11:00 02/03/18 12:00 Temperature 98.6 F Pulse Rate 82 86 Respiratory Rate 22 22 23 Blood Pressure 142/83 H 134/77 Pulse Oximetry 100 96 98 02/03/18 13:00 02/03/18 13:21 02/03/18 14:00 Temperature Pulse Rate 98 H 103 H Respiratory Rate 23 11 L 25 H Blood Pressure 141/78 H 144/81 H Pulse Oximetry 97 100 98 02/03/18 15:00 02/03/18 15:24 02/03/18 15:27 Temperature Pulse Rate 96 H 99 H Respiratory Rate 21 17 14 Blood Pressure 138/80 Pulse Oximetry 97 95 02/03/18 16:00 02/03/18 17:00 02/03/18 18:00 Temperature 100.2 F H Pulse Rate 100 H 118 H 118 H Respiratory Rate 28 H 36 H 39 H Blood Pressure 137/78 151/94 H 143/101 H Pulse Oximetry 93 L 96 96 02/03/18 18:02 02/03/18 18:04 02/03/18 18:56 Temperature Pulse Rate 102 H 98 H Respiratory Rate 27 H 35 H 23 Blood Pressure 147/103 H 132/81 Pulse Oximetry 96 96 95 02/03/18 18:59 02/03/18 19:00 02/03/18 20:00 Temperature 102.8 F H Pulse Rate 105 H 97 H 125 H Respiratory Rate 24 25 H 22 Blood Pressure 141/81 H 139/75 Pulse Oximetry 99 94 L 02/03/18 21:00 02/03/18 22:00 02/03/18 23:00 Temperature Pulse Rate 119 H 86 76 Respiratory Rate 23 22 22 Blood Pressure 129/76 120/74 129/80 Pulse Oximetry 96 97 99 02/03/18 23:56 02/04/18 00:00 02/04/18 01:00 Temperature 99.3 F Pulse Rate 98 H 89 104 H Respiratory Rate 22 22 21 Blood Pressure 132/79 137/85 Pulse Oximetry 100 100 100 02/04/18 02:00 02/04/18 03:00 02/04/18 04:00 Temperature Pulse Rate 84 108 H 74 Respiratory Rate 22 21 22 Blood Pressure 137/79 148/92 H 129/78 Pulse Oximetry 98 98 95 02/04/18 04:13 02/04/18 04:14 02/04/18 05:00 Temperature 100.1 F H Pulse Rate 59 L 61 Respiratory Rate 22 22 22 Blood Pressure 132/75 Pulse Oximetry 100 96 02/04/18 06:00 02/04/18 07:16 02/04/18 08:00 Temperature 100.5 F H Pulse Rate 89 95 H 80 Respiratory Rate 11 L 14 Blood Pressure 118/62 Pulse Oximetry 99 100 Intake & Output 02/03/18 02/04/18 02/04/18 18:59 06:59 18:59 Intake Total 772.5 / 772.5 950 / 950 807.5 / 807.5 Output Total 3300 / 3300 2435 / 2435 Balance -2527.5 / -2527.5 -1485 / -1485 807.5 / 807.5 Weight 78.5 kg Intake: IV 772.5 / 772.5 350 / 350 807.5 / 807.5 Versed Inj 100 mg In 100 ml @ 2 50 / 50 MG/HR 2 mls/hr IV.CONT TITRATE PRN Rx#:[id number] Diprivan 1000 mg/100 ml Inj 1, 100 / 100 100 / 100 120 / 120 000 mg In 100 ml @ 5 MCG/KG/MIN 1.998 mls/hr IV.CONT TITRATE PRN Rx#:[id number] Azithromycin Inj 500 MG In NS 250 / 250 Inj 250 ML @ 250 mls/hr IV.SIG Q24H BENOIT Rx#:[id number] KCl 40 mEq Premix Inj 40 meq In 100 / 100 100 / 100 100 ml @ 25 mls/hr IV.SIG UNSCH PRN Rx#:[id number] Potassium Phosphate Inj 30 MMOL 260 / 260 In NS Inj 250 ML @ 42 mls/hr IV.SIG UNSCH PRN Rx#:[id number] Vancomycin Inj 1,250 MG In NS 262.5 / 262.5 262.5 / 262.5 Inj 250 ML @ 250 mls/hr IV.SIG Q18H BENOIT Rx#:[id number] fentaNYL 10 mcg/mL Premix Drip 250 / 250 75 / 75 2,500 mcg In 250 ml @ 50 MCG/HR 5 mls/hr IV.SIG TITRATE PRN Rx #:[id number] Water Bolus Amount 600 / 600 Output: Stool 200 / 200 Urine Amount (Catheter) 3299 / 3299 Indwelling Urethral Catheter 3299 Other: Date of Last Bowel Movement 02/03/18 02/03/18 Result Diagrams: 02/04/18 06:27 02/04/18 06:27 Other Results: Laboratory Results CBC w Diff Slide review pending 01/29/18 04:25 WBC 8.3 th/mm3 (4.0-11.0) 02/04/18 06:27 RBC 2.91 mil/mm3 (4.00-5.30) L 02/04/18 06:27 Hgb 10.4 gm/dL (11.6-15.3) L 02/04/18 06:27 Hct 30.5 % (35.0-46.0) L 02/04/18 06:27 MCV 104.7 fL (80.0-100.0) H 02/04/18 06:27 MCH 35.6 pg (27.0-34.0) H 02/04/18 06:27 MCHC 34.0 % (32.0-36.0) 02/04/18 06:27 RDW 19.0 % (11.6-17.2) H 02/04/18 06:27 Plt Count 125 th/mm3 (150-450) L 02/04/18 06:27 MPV 9.0 fL (7.0-11.0) 02/04/18 06:27 Prelim Diff (Auto) Slide review pending 02/02/18 03:05 Neut % (Auto) 83.0 % (16.0-70.0) H 02/02/18 03:05 Lymph % (Auto) 5.7 % (9.0-44.0) L 02/02/18 03:05 Gem % (Auto) 11.1 % (0.0-8.0) H 02/02/18 03:05 Eos % (Auto) 0.0 % (0.0-4.0) 02/02/18 03:05 Baso % (Auto) 0.2 % (0.0-2.0) 02/02/18 03:05 Neut # (Auto) 6.0 th/mm3 (1.8-7.7) 02/02/18 03:05 Lymph # (Auto) 0.4 th/mm3 (1.0-4.8) L 02/02/18 03:05 Gem # (Auto) 0.8 th/mm3 (0.0-0.9) 02/02/18 03:05 Eos # (Auto) 0.0 th/mm3 (0.0-0.4) 02/02/18 03:05 Baso # (Auto) 0.0 th/mm3 (0.0-0.2) 02/02/18 03:05 WBC Differential . 02/02/18 03:05 Diff Scan Auto diff confirmed 02/02/18 03:05 Seg Neuts % (Manual) 92 % (16-70) H 01/31/18 03:30 Band Neuts % (Manual) 5 % (0-6) 01/31/18 03:30 Lymphocytes % (Manual) 2 % (9-44) L 01/31/18 03:30 Monocytes % (Manual) 1 % (0-8) 01/29/18 04:25 Metamyelocytes % (Man) 6 % (0-1) H 01/29/18 04:25 Myelocytes % (Man) 1 % (0-0) H 01/31/18 03:30 Abs Neuts (Manual) 7.5 th/mm3 (1.8-7.7) 01/31/18 03:30 Differential Comment . 02/02/18 03:05 Platelet Estimate Low (Normal) L 02/02/18 03:05 Platelet Morphology Normal (Normal) 02/02/18 03:05 RBC Morphology Normal (Normal) 02/02/18 03:05 Puncture Site Art line 02/04/18 09:52 Patient Temperature 98.6 02/04/18 09:52 O2 Saturation 96 % (90-100) 02/04/18 09:52 ABG pH 7.49 (7.380-7.420) H 02/04/18 09:52 ABG pCO2 38 mmHg (38-42) 02/04/18 09:52 ABG pO2 109 mmHG (61-120) 02/04/18 09:52 ABG HCO3 29 mmol/L (22-26) H 02/04/18 09:52 ABG O2 Content 14.5 Vol % (12.0-20.0) 02/04/18 09:52 ABG Base Excess 5.5 mmol/L (-2-2) H 02/04/18 09:52 ABG Methemoglobin 1.7 % (0-2) 02/04/18 09:52 Alex Test Present 02/04/18 09:52 Hemoglobin 10.6 G/DL (12.0-16.0) L 02/04/18 09:52 Carboxyhemoglobin 0.7 % (0-4) 02/04/18 09:52 O2 Delivery Device Ventilator 02/04/18 09:52 Vent Setting Ps 5/peep 5 02/04/18 09:52 Inspired O2 35 % 02/04/18 09:52 Critical Value No 02/04/18 09:52 Sodium 153 meq/L (136-145) H 02/04/18 06:27 Potassium 3.3 meq/L (3.5-5.1) L 02/04/18 06:27 Chloride 117 meq/L (98-107) H 02/04/18 06:27 Carbon Dioxide 28.7 meq/L (21.0-32.0) 02/04/18 06:27 Anion Gap 7 meq/L (5-15) 02/04/18 06:27 BUN 28 mg/dL (7-18) H 02/04/18 06:27 Creatinine 0.52 mg/dL (0.50-1.00) 02/04/18 06:27 Estimated GFR Greater than 89 mL/min (>89) 02/04/18 06:27 POC Glucose 159 mg/dl (68-110) H 02/04/18 07:36 Random Glucose 158 mg/dL (74-106) H 02/04/18 06:27 Lactic Acid 1.3 mmol/L (0.4-2.0) 01/30/18 03:40 Calcium 6.7 mg/dL (8.5-10.1) L* 02/04/18 06:27 Calcium Adj for Albumin 8.1 mg/dL (8.5-10.1) L 02/04/18 06:27 Phosphorus 2.1 mg/dL (2.5-4.9) L 02/04/18 06:27 Magnesium 1.7 mg/dL (1.5-2.5) 02/04/18 06:27 Total Bilirubin 0.6 mg/dL (0.2-1.0) 02/01/18 08:30 AST 94 U/L (15-37) H 02/01/18 08:30 ALT 172 U/L (10-53) H 02/01/18 08:30 Alkaline Phosphatase 145 U/L (45-117) H 02/01/18 08:30 Lactate Dehydrogenase 1296 U/L (84-246) H 01/29/18 13:02 B-Natriuretic Peptide 182 pg/mL (0-100) H 01/29/18 04:25 Total Protein 5.1 g/dL (6.4-8.2) L 02/01/18 08:30 Albumin 2.2 g/dL (3.4-5.0) L 02/04/18 06:27 Beta HCG, Quant Less than 1 mIU/mL (0-5) 01/29/18 04:25 Urine Color Yellow (Yellw/Straw) 01/28/18 18:10 Urine Clarity Clear (Clear) 01/28/18 18:10 Urine pH 6.0 (5.0-8.5) 01/28/18 18:10 Ur Specific Lydia 1.010 (1.002-1.035) 01/28/18 18:10 Urine Protein Trace mg/dL (Neg-Trace) 01/28/18 18:10 Urine Glucose (UA) Negative mg/dL (Negative) 01/28/18 18:10 Urine Ketones Negative mg/dL (Negative) 01/28/18 18:10 Urine Occult Blood Negative (Negative) 01/28/18 18:10 Urine Nitrate Negative (Negative) 01/28/18 18:10 Urine Bilirubin Negative (Negative) 01/28/18 18:10 Urine Urobilinogen 1.0 mg/dL (Less than 2) 01/28/18 18:10 Ur Leukocyte Esterase Negative (Negative) 01/28/18 18:10 Urine WBC 0-5 /hpf (0-5) 01/28/18 18:10 Ur Squamous Epith Cells 0-5 /hpf (0-5) 01/28/18 18:10 Urine Bacteria Rare /hpf (None) H 01/28/18 18:10 Urine Mucus Rare /lpf (Occasional) H 01/28/18 18:10 Micro UA Comment Culture not ind 01/28/18 18:10 Ur Microscopic Review Microscopic reviewed 01/28/18 18:10 Urine Culture Comments Culture not ind 01/28/18 18:10 Vancomycin Trough 11.4 mcg/mL (5.0-10.0) H 02/03/18 15:50 Urine Opiates Screen Neg (Neg) 01/28/18 18:10 Ur Barbiturates Screen Neg (Neg) 01/28/18 18:10 Ur Amphetamines Screen Neg (Neg) 01/28/18 18:10 U Benzodiazepines Scrn Neg (Neg) 01/28/18 18:10 Urine Cocaine Screen Pos (Neg) H 01/28/18 18:10 U Cannabinoids Screen Neg (Neg) 01/28/18 18:10 Heparin Dep Plt Ab OD 0.905 U/mL (0.000-1.0) 02/01/18 12:50 Hep-Induced Plt Ab Sloane Negative (Negative) 02/01/18 12:50 Absolute Lymphocytes 412 cells/uL (850-3900) L 02/01/18 04:58 % CD3 Cells 72 % (57-85) 02/01/18 04:58 Absolute CD3 Count 298 /uL (840-3060) L 02/01/18 04:58 % CD3-/CD16+/CD56+ 9 % (4-25) 02/01/18 04:58 Abs CD3-/CD16+/CD56+ 35 cells/uL (70-760) L 02/01/18 04:58 % CD4 Cells 45 % (30-61) 02/01/18 04:58 Absolute CD4 Count 185 cells/uL (490-1740) L 02/01/18 04:58 T-Help/Suppress Ratio 1.60 (0.86-5.00) 02/01/18 04:58 % CD8 Cells 28 % (12-42) 02/01/18 04:58 Absolute CD8 Count 116 cells/uL (180-1170) L 02/01/18 04:58 % CD19 Cells 17 % (6-29) 02/01/18 04:58 Absolute CD19 Count 71 cells/uL (110-660) L 02/01/18 04:58 Hepatitis A IgM Ab Nonreactive (Nonreactive) 01/29/18 09:22 Hep Bs Antigen Nonreactive (Nonreactive) 01/29/18 09:22 Hep B Core IgM Ab Nonreactive (Nonreactive) 01/29/18 09:22 Hep C IgG Ab Reactive (Nonreactive) H 01/29/18 09:22 HIV 1&2 Ab/P24 Ag 4thGn Nonreactive (Nonreactive) 01/30/18 12:20 M. pneumoniae Source Cancelled 01/29/18 09:22 Mycoplasma pneumon Cult Cancelled 01/29/18 09:22 M.pneumoniae Comment Cancelled 01/29/18 09:[address] 01/28/18 18:20 CONCLUSION: Extensive bilateral airspace disease Abdomen X-Ray 02/03/18 00:37 CONCLUSION: 1. OG tube tip in the distal stomach near the duodenal bulb. Objective Remarks: GENERAL: young female, lying in bed, intubated nodding to yes and no questions SKIN: Warm and dry. HEAD: Atraumatic. Normocephalic. EYES: Pupils equal and round. No scleral icterus. No injection or drainage. ENT: No nasal bleeding or discharge. Mucous membranes pink and moist. NECK: Trachea midline. No JVD. CARDIOVASCULAR: Normal rate, regular rhythm. sinus. RESPIRATORY: No accessory muscle use. Coarse rhonchi. Breath sounds equal bilaterally. Bilateral chest excursion. GASTROINTESTINAL: Abdomen soft, non-tender, nondistended. No guarding. MUSCULOSKELETAL: Extremities without clubbing, cyanosis, 1+ generalized edema. No obvious deformities. Bruising noted on right forehead left great toe 2/2 rota prone bed positioning NEUROLOGICAL: Intubated. RASS 0. Patient opens eyes to voice, following commands with extremities x 4 Procedures: 01/31: Sutured right IJ, StatLock removed. Assessment and Plan - Problem List (1) Acute respiratory failure with hypoxia and hypercarbia Code(s): J96.01 - Acute respiratory failure with hypoxia; J96.02 - Acute respiratory failure with hypercapnia Status: Acute (2) Hepatitis Code(s): K75.9 - Inflammatory liver disease, unspecified Status: Acute (3) Bilateral pneumonia Code(s): J18.9 - Pneumonia, unspecified organism Status: Acute (4) Sepsis Code(s): A41.9 - Sepsis, unspecified organism Status: Acute (5) Hypoxia Code(s): R09.02 - Hypoxemia Status: Acute (6) Leukocytosis Code(s): D72.829 - Elevated white blood cell count, unspecified Status: Acute (7) Hyperglycemia Code(s): R73.9 - Hyperglycemia, unspecified Status: Acute (8) Thrombocytopenia Code(s): D69.6 - Thrombocytopenia, unspecified Status: Acute - Assessment and Plan Plan: Plan by systems: Neurologic: Anxiety disorder Borderline personality disorder Substance use disorder Discontinue infusions for analgesia and sedation, to maintain ventilator synchrony. Precedex to maintain ventilator synchrony in anticipation for transition to extubate Acetaminophen 650 mg every 6 hours as needed for temperature greater than 101.0 No Daily sedation vacation at this time secondary to increased FiO2 requirements in order to maintain oxygenation. Immediately post intubation patient was awake GCS 11 T 01/28 urine drug screen-positive for cocaine 02/02-transitioned to supine bed, phonation discontinued Respiratory: Acute hypoxemic and hypercarbic respiratory failure Bilateral pneumonia Tobacco use disorder ARDS bilateral pulmonary edema- severe Vent settings currently SD VC/AC, 500/22/+12/with FIO2 35, remain supine. transition off RotaProne bed today. Continue to monitor serial chest Xrays and ABG's methylprednisolone 125mg x 1 dose , continued 60 mg every 8 hrs 01/28 Sputum culture- NGTD Legionella, pneumococcal urine antigens-neg Influenza antigens A/Bneg 01/29-intubated 7.5 ETT 22 at the [facility] 01/28chest x-ray widespread diffuse airspace disease 01/29 chest [id number] inflammatory response Continue methylprednisolone 60 mg every 8hr Pulmonology has been consulted previously prior to intubation following along F/U Chest x-ray -stable. Continue Lasix to 60mg iv q6h 02/03-begin CPAP trials clinically tolerated 02/04-SBT FVC 1200, RSBI 25,NIF -30 TV 670 RR 11. Positive cuff leak. Plan to extubate ABG 7.49/3 38/109/20 8/5.5 Cardiovascular: Sinus tachycardia- resolved Maintain MAP > 65mmHg arterial line an CVL right IJ-placed 01/28 01/28 Echo EF 40-45%, moderately dilated left ventricle, LAD infarct vs. Taktsubo cardiomyopathy, no vegetations noted PAP 42 Renal: Discontinue Garcia -- Strict I/Os FEN/GI: Hepatitis C Transaminitis Metabolic acidosis-resolving Electrolyte derangement Maintain n.p.o. status for now-in anticipation for extubation Dobbhoff in situ Monitor CMP Electrolyte replacement per ICU protocol 02/01 IV fluids discontinued increase free water flushes to 300mL po q4h Hypernatremia, hypokalemia, hypocalcemia-repletion in progress Heme/ID: Pneumonia Severe sepsis Leukocytosis-resolved ARDS Hepatitis C Thrombocytopenia 01/28-Legionella, mycoplasma, pneumococcal antigens-negative 01/28 sputum culture-negative Monitor CBC ID consulted-Dr. Carballo following, antibiotics per recommendation 01/29 Lactate level -cleared 01/28 Blood jorfcba-pzuz-wpmzswyc cocci, sputum-MRSA HIV- negative, F/U CD4 levels F/U HCV PCR 02/02 Heparin platelet antibody-negative Endocrine: Hyperglycemia of critical illness Glucose monitoring per ICU protocol 4 hours-post regimen -- SSI Prophylaxis: GI Prophylaxis famotidine DVT Prophylaxis -- SCDs Lines: Peripheral IVs x3. Arterial line left radial (dc'd 02/01), R IJ CVL 01/29, Right rad arterial line Dispo: My billing statement This patient remains critically ill with one or more organ systems which are or may become a threat to life. I have spent in excess of 33 minutes discontinuously in the care and management of this patient. This time is exclusive of procedures, and includes, but is not limited to, evaluation of the patient, review of the medical record, discussions with family, consultants, nursing staff, or respiratory therapy, and documentation in the medical record. Code Status: Full Discussed Condition With: Discussed with family and [employer] at bedside (3) Bilateral pneumonia Qualifiers: Pneumonia type: due to unspecified organism Lung location: unspecified part of lung Qualified Code(s): J18.9 - Pneumonia, unspecified organism (4) Sepsis Qualifiers: Sepsis type: sepsis due to unspecified organism Qualified Code(s): A41.9 - Sepsis, unspecified organism (6) Leukocytosis Qualifiers: Leukocytosis type: unspecified Qualified Code(s): D72.829 - Elevated white blood cell count, unspecified
--- NOTE | 2018-02-04 10:49 | P.PNPL ---
Subjective Interval history: Patient is on Precedex drip off other sedations. Awake, on CPAP with PS 5 and PEEP:5 FIO2 35%. Afebrile. Physical Exam Vital signs: Vital Signs 02/03/18 11:00 02/03/18 12:00 02/03/18 13:00 Temperature 98.6 F Pulse Rate 82 86 98 H Respiratory Rate 22 23 23 Blood Pressure 142/83 H 134/77 141/78 H Pulse Oximetry 96 98 97 02/03/18 13:21 02/03/18 14:00 02/03/18 15:00 Temperature Pulse Rate 103 H 96 H Respiratory Rate 11 L 25 H 21 Blood Pressure 144/81 H 138/80 Pulse Oximetry 100 98 97 02/03/18 15:24 02/03/18 15:27 02/03/18 16:00 Temperature 100.2 F H Pulse Rate 99 H 100 H Respiratory Rate 17 14 28 H Blood Pressure 137/78 Pulse Oximetry 95 93 L 02/03/18 17:00 02/03/18 18:00 02/03/18 18:02 Temperature Pulse Rate 118 H 118 H 102 H Respiratory Rate 36 H 39 H 27 H Blood Pressure 151/94 H 143/101 H 147/103 H Pulse Oximetry 96 96 96 02/03/18 18:04 02/03/18 18:56 02/03/18 18:59 Temperature Pulse Rate 98 H 105 H Respiratory Rate 35 H 23 24 Blood Pressure 132/81 Pulse Oximetry 96 95 02/03/18 19:00 02/03/18 20:00 02/03/18 21:00 Temperature 102.8 F H Pulse Rate 97 H 125 H 119 H Respiratory Rate 25 H 22 23 Blood Pressure 141/81 H 139/75 129/76 Pulse Oximetry 99 94 L 96 02/03/18 22:00 02/03/18 23:00 02/03/18 23:56 Temperature Pulse Rate 86 76 98 H Respiratory Rate 22 22 22 Blood Pressure 120/74 129/80 Pulse Oximetry 97 99 100 02/04/18 00:00 02/04/18 01:00 02/04/18 02:00 Temperature 99.3 F Pulse Rate 89 104 H 84 Respiratory Rate 22 21 22 Blood Pressure 132/79 137/85 137/79 Pulse Oximetry 100 100 98 02/04/18 03:00 02/04/18 04:00 02/04/18 04:13 Temperature Pulse Rate 108 H 74 Respiratory Rate 21 22 22 Blood Pressure 148/92 H 129/78 Pulse Oximetry 98 95 100 02/04/18 04:14 02/04/18 05:00 02/04/18 06:00 Temperature 100.1 F H Pulse Rate 59 L 61 89 Respiratory Rate 22 22 Blood Pressure 132/75 Pulse Oximetry 96 02/04/18 07:16 02/04/18 08:00 02/04/18 10:00 Temperature 100.5 F H Pulse Rate 95 H 80 92 H Respiratory Rate 11 L 14 Blood Pressure 118/62 Pulse Oximetry 99 100 Intake & Output 02/03/18 02/04/18 02/04/18 18:59 06:59 18:59 Intake Total 772.5 / 772.5 950 / 950 807.5 / 807.5 Output Total 3300 / 3300 2435 / 2435 Balance -2527.5 / -2527.5 -1485 / -1485 807.5 / 807.5 Weight 78.5 kg Intake: IV 772.5 / 772.5 350 / 350 807.5 / 807.5 Versed Inj 100 mg In 100 ml @ 2 50 / 50 MG/HR 2 mls/hr IV.CONT TITRATE PRN Rx#:[id number] Diprivan 1000 mg/100 ml Inj 1, 100 / 100 100 / 100 120 / 120 000 mg In 100 ml @ 5 MCG/KG/MIN 1.998 mls/hr IV.CONT TITRATE PRN Rx#:[id number] Azithromycin Inj 500 MG In NS 250 / 250 Inj 250 ML @ 250 mls/hr IV.SIG Q24H BENOIT Rx#:[id number] KCl 40 mEq Premix Inj 40 meq In 100 / 100 100 / 100 100 ml @ 25 mls/hr IV.SIG UNSCH PRN Rx#:[id number] Potassium Phosphate Inj 30 MMOL 260 / 260 In NS Inj 250 ML @ 42 mls/hr IV.SIG UNSCH PRN Rx#:[id number] Vancomycin Inj 1,250 MG In NS 262.5 / 262.5 262.5 / 262.5 Inj 250 ML @ 250 mls/hr IV.SIG Q18H BENOIT Rx#:[id number] 10 mcg/mL Premix Drip 250 / 250 75 / 75 2,500 mcg In 250 ml @ 50 MCG/HR 5 mls/hr IV.SIG TITRATE PRN Rx #:[id number] Water Bolus Amount 600 / 600 Output: Stool 200 / 200 Urine Amount (Catheter) 3300 / 3300 2235 / 2235 Indwelling Urethral Catheter 3300 / 3300 2234 / 223 Other: Date of Last Bowel Movement 02/03/18 02/03/18 - Constitutional no acute distress - Routine HEENT Exam Head: Present: normocephalic, atraumatic Eye: Present: EOMI, PERRL, normal accommodation, conjunctivae pink ENT: Present: mucous membranes moist - Routine Neck Exam Present: supple, full ROM, trachea midline - Routine Respiratory Exam Present: patient mechanically ventilated, CTA bilaterally - Routine Cardiovascular Exam Present: RRR, S1, S2 - Routine Abdominal Exam Present: soft, normoactive bowel sounds - Routine Extremities Exam Present: full ROM, pulses intact - Routine Neurological Exam Present: alert - Urinary Catheter Management Indwelling Urethral Catheter Cath placed during this visit: yes Reason for continuing: Other continuation reason Insertion date: 01/29/18 Insertion time: 07:15 Assessment and Plan - Assessment (1) Acute respiratory failure with hypoxia and hypercarbia Code(s): J96.01 - Acute respiratory failure with hypoxia; J96.02 - Acute respiratory failure with hypercapnia Status: Acute (2) Hepatitis Code(s): K75.9 - Inflammatory liver disease, unspecified Status: Acute (3) Bilateral pneumonia Code(s): J18.9 - Pneumonia, unspecified organism Status: Acute Qualifiers: Qualified Code(s): J18.9 - Pneumonia, unspecified organism (4) Sepsis Code(s): A41.9 - Sepsis, unspecified organism Status: Acute Qualifiers: Qualified Code(s): A41.9 - Sepsis, unspecified organism (5) Hypoxia Code(s): R09.02 - Hypoxemia Status: Acute (6) Leukocytosis Code(s): D72.829 - Elevated white blood cell count, unspecified Status: Acute Qualifiers: Qualified Code(s): D72.829 - Elevated white blood cell count, unspecified (7) Hyperglycemia Code(s): R73.9 - Hyperglycemia, unspecified Status: Acute (8) Thrombocytopenia Code(s): D69.6 - Thrombocytopenia, unspecified Status: Acute - Plan 1. VDRF 2. s/p ARDS 3. MRSA pneumonia. 4. Staphylococcus aureus bacteremia. 5. Hepatitis C. 6. Anemia. 7. Thrombocytopenia. 8. Hypernatremia. Plan Off sedation. Monitor neuro status. On Precedex drip to facilitate with weaning trials. Continue vent support and maintain sats >92%. Bronchodilators, ICU vent bundle. Patient is tolerating CPAP trials for possible extubation. Decrease Solu-Medrol 40mg IV Q12 Continue diuretics- on Lasix 60mg Q6, electrolytes replacement per protocol. Abx per ID -vancomycin, and azithromycin. 01/28 BC: Staph Aureus. Sputum cx: MRSA 01/29. Influenza screening negative on 01/28, Strep pneumonia and Legionella urinary Ag negative on 01/29 Follow up on BC from 02/02. Follow up on sputum cx 02/03 GI/DVT prophylaxis. on Pepcid 20 mg q.12 and Lovenox 40 mg subcutaneous daily. Discussed with Dr. Cornejo
[2018-02-04] MEDS ORDERED: Sodium Glycerophosphate Inj 30 MMOL in Sodium Chlor 0.9% Inj 250 ML IV.SIG PRN (11:16)
[2018-02-04] MEDS: MethylPREDNISolone Sod Succinate Inj 40 MG/ML Vial IV.PUSH SCH ×2 (13:36→22:45)
--- NOTE | 2018-02-04 13:49 | P.PNID ---
Subjective Remarks: Patient was extubated today. She is awake and alert. Mom at bedside. Has low-grade fever. Lung infiltrates improved. Repeat blood culture has no growth. Sputum culture is pending. Cefepime was discontinued on 02/01. 32-year-old white female who presented to the emergency department yesterday evening with respiratory symptoms. Emergency department report stated that the patient developed symptoms about a week ago consisting of body aches, nausea, vomiting, diarrhea, fever, chills, and sweats. She was seen at an urgent care center about a week ago and was diagnosed with flu. She subsequently developed a sore throat and pain on swallowing and loss of the voice as well as nonproductive cough. Her energy level is also reported to be very low. The patient was seen in the emergency department and temperature was 98.6, heart rate was elevated at 122, and white count was elevated at 20.8. She was put on nonrebreather mask and oxygen saturation was noted to be between 88% and 92%. The patient was subsequently intubated. Antibiotics: Azithromycin Vancomycin Past Medical History: PAST MEDICAL HISTORY: Reportedly negative. The patient has been evaluated for psychiatric adjustment disorder. Allergies/Adverse Reactions: Allergies Sulfa (Sulfonamide Antibiotics) Allergy (Intermediate, Verified 05/14/17 22:25) PT STATES INCREASES HER TEMP Objective Vital Signs 02/03/18 14:00 02/03/18 15:00 02/03/18 15:24 Temperature Pulse Rate 103 H 96 H Respiratory Rate 25 H 21 17 Blood Pressure 144/81 H 138/80 Pulse Oximetry 98 97 95 02/03/18 15:27 02/03/18 16:00 02/03/18 17:00 Temperature 100.2 F H Pulse Rate 99 H 100 H 118 H Respiratory Rate 14 28 H 36 H Blood Pressure 137/78 151/94 H Pulse Oximetry 93 L 96 02/03/18 18:00 02/03/18 18:02 02/03/18 18:04 Temperature Pulse Rate 118 H 102 H 98 H Respiratory Rate 39 H 27 H 35 H Blood Pressure 143/101 H 147/103 H 132/81 Pulse Oximetry 96 96 96 02/03/18 18:56 02/03/18 18:59 02/03/18 19:00 Temperature Pulse Rate 105 H 97 H Respiratory Rate 23 24 25 H Blood Pressure 141/81 H Pulse Oximetry 95 99 02/03/18 20:00 02/03/18 21:00 02/03/18 22:00 Temperature 102.8 F H Pulse Rate 125 H 119 H 86 Respiratory Rate 22 23 22 Blood Pressure 139/75 129/76 120/74 Pulse Oximetry 94 L 96 97 02/03/18 23:00 02/03/18 23:56 02/04/18 00:00 Temperature 99.3 F Pulse Rate 76 98 H 89 Respiratory Rate 22 22 22 Blood Pressure 129/80 132/79 Pulse Oximetry 99 100 100 02/04/18 01:00 02/04/18 02:00 02/04/18 03:00 Temperature Pulse Rate 104 H 84 108 H Respiratory Rate 21 22 21 Blood Pressure 137/85 137/79 148/92 H Pulse Oximetry 100 98 98 02/04/18 04:00 02/04/18 04:13 02/04/18 04:14 Temperature Pulse Rate 74 59 L Respiratory Rate 22 22 22 Blood Pressure 129/78 Pulse Oximetry 95 100 02/04/18 05:00 02/04/18 06:00 02/04/18 07:16 Temperature 100.1 F H Pulse Rate 61 89 95 H Respiratory Rate 22 11 L Blood Pressure 132/75 Pulse Oximetry 96 99 02/04/18 08:00 02/04/18 10:00 02/04/18 11:08 Temperature 100.5 F H Pulse Rate 80 92 H 85 Respiratory Rate 14 20 Blood Pressure 118/62 Pulse Oximetry 100 Intake & Output 02/03/18 02/04/18 02/04/18 18:59 06:59 18:59 Intake Total 772.5 / 772.5 950 / 950 807.5 / 807.5 Output Total 3300 / 3300 2435 / 2435 Balance -2527.5 / -2527.5 -1485 / -1485 807.5 / 807.5 Weight 78.5 kg Intake: IV 772.5 / 772.5 350 / 350 807.5 / 807.5 Versed Inj 100 mg In 100 ml @ 2 50 / 50 MG/HR 2 mls/hr IV.CONT TITRATE PRN Rx#:[id number] Diprivan 1000 mg/100 ml Inj 1, 100 / 100 100 / 100 120 / 120 000 mg In 100 ml @ 5 MCG/KG/MIN 1.998 mls/hr IV.CONT TITRATE PRN Rx#:[id number] Azithromycin Inj 500 MG In NS 250 / 250 Inj 250 ML @ 250 mls/hr IV.SIG Q24H BENOIT Rx#:[id number] KCl 40 mEq Premix Inj 40 meq In 100 / 100 100 / 100 100 ml @ 25 mls/hr IV.SIG UNSCH PRN Rx#:[id number] Potassium Phosphate Inj 30 MMOL 260 / 260 In NS Inj 250 ML @ 42 mls/hr IV.SIG UNSCH PRN Rx#:[id number] Vancomycin Inj 1,250 MG In NS 262.5 / 262.5 262.5 / 262.5 Inj 250 ML @ 250 mls/hr IV.SIG Q18H BENOIT Rx#:[id number] fentaNYL 10 mcg/mL Premix Drip 250 / 250 75 / 75 2,500 mcg In 250 ml @ 50 MCG/HR 5 mls/hr IV.SIG TITRATE PRN Rx #:[id number] Water Bolus Amount 600 / 600 Output: Stool 200 / 200 Urine Amount (Catheter) 3300 / 3300 2235 / 2235 Indwelling Urethral Catheter 3300 / 3300 2235 / 2235 Other: Date of Last Bowel Movement 02/03/18 02/03/18 02/02/18 03:40 Blood - Peripheral Aerobic Blood Culture - Preliminary No growth in 2 days 02/02/18 03:40 Blood - Peripheral Anaerobic Blood Culture - Preliminary No growth in 2 days 02/02/18 03:05 Blood - Peripheral Aerobic Blood Culture - Preliminary No growth in 2 days 02/02/18 03:05 Blood - Peripheral Anaerobic Blood Culture - Preliminary No growth in 2 days 02/03/18 17:45 Sputum - Endotracheal Gram Stain - Final 02/03/18 17:45 Sputum - Endotracheal Sputum Culture - Pending 01/28/18 18:50 Blood - Peripheral Aerobic Blood Culture - Final No growth in 5 days 01/28/18 18:50 Blood - Peripheral Anaerobic Blood Culture - Final No growth in 5 days 01/28/18 18:40 Blood - Peripheral Aerobic Blood Culture - Final Staphylococcus aureus 01/28/18 18:40 Blood - Peripheral Anaerobic Blood Culture - Final Staphylococcus aureus Lab - Hematology Results 02/03/18 02/04/18 03:45 06:27 WBC 5.6 8.3 RBC 3.25 L 2.91 L Hgb 11.7 10.4 L Hct 33.7 L 30.5 L MCV 103.7 H 104.7 H MCH 36.0 H 35.6 H MCHC 34.7 34.0 RDW 19.2 H 19.0 H Plt Count 115 L 125 L MPV 9.0 9.0 Lab - Chemistry Results 02/02/18 02/02/18 02/03/18 16:49 21:04 03:45 Sodium 152 H Potassium 3.0 L D Chloride 118 H Carbon Dioxide 22.7 Anion Gap 11 BUN 33 H Creatinine 0.57 Estimated GFR Greater than 89 POC Glucose 148 H 148 H Random Glucose 199 H Calcium 6.8 L* D Calcium Adj for Albumin 8.3 L D Phosphorus 2.1 L Magnesium 1.7 Albumin 2.1 L 02/03/18 02/03/18 02/03/18 03:50 08:11 11:19 Sodium Potassium Chloride Carbon Dioxide Anion Gap BUN Creatinine Estimated GFR POC Glucose 174 H 187 H 185 H Random Glucose Calcium Calcium Adj for Albumin Phosphorus Magnesium Albumin 02/03/18 02/03/18 02/03/18 16:45 17:30 20:33 Sodium Potassium 3.4 L Chloride Carbon Dioxide Anion Gap BUN Creatinine Estimated GFR POC Glucose 171 H 161 H Random Glucose Calcium Calcium Adj for Albumin Phosphorus 1.3 L Magnesium 1.7 Albumin 02/04/18 02/04/18 02/04/18 02:52 06:27 07:36 Sodium 153 H Potassium 3.3 L Chloride 117 H Carbon Dioxide 28.7 Anion Gap 7 BUN 28 H Creatinine 0.52 Estimated GFR Greater than 89 POC Glucose 167 H 159 H Random Glucose 158 H Calcium 6.7 L* Calcium Adj for Albumin 8.1 L Phosphorus 2.1 L Magnesium 1.7 Albumin 2.2 L 02/04/18 12:57 Sodium Potassium Chloride Carbon Dioxide Anion Gap BUN Creatinine Estimated GFR POC Glucose 146 H Random Glucose Calcium Calcium Adj for Albumin Phosphorus Magnesium Albumin Imaging: ITS Impressions Chest CT 01/28/18 18:20 CONCLUSION: Extensive bilateral airspace disease Abdomen X-Ray 02/03/18 00:37 CONCLUSION: 1. OG tube tip in the distal stomach near the duodenal bulb. Chest X-Ray 02/04/18 09:47 CONCLUSION: No significant interval change compared to the prior examination. Physical Exam: GENERAL: Intubated. No acute distress. HEENT: Extraocular movements grossly intact. Pupils reactive to light. No icterus. NECK: No adenopathy or swelling. LUNGS: Slight basilar rhonchi. HEART: Normal S1 and S2, without audible murmurs, rubs, or gallops. ABDOMEN: Decreased bowel sounds. Soft, nontender. No palpable mass. EXTREMITIES: No clubbing. No cyanosis, trace edema.. SKIN: No rash. warm and moist. NEUROLOGIC: Nonfocal PSYCHIATRIC: Calm. Lines without evidence of infection. Assessment and Plan - Plan IMPRESSION: 1. Bilateral pneumonia. MRSA on sputum culture. 2. Bacteremia. Staph aureus. MSSA. 3. Hypoxia. Improved 4. Acute respiratory failure. Extubated 5. Elevated liver function tests. Improved. 6. Leukocytosis. Resolved. 7. ALLERGY TO SULFA. Appears to be improving. RECOMMENDATIONS: 1. Resume cefepime. 2. Continue azithromycin. 3. Continue vancomycin. 4. Follow sputum culture 5. Monitor clinical status. 6. Monitor temperature.
[2018-02-04] MEDS: Azithromycin Inj 500 MG in Sodium Chlor 0.9% Inj 250 ML IV.SIG SCH (20:27)
[2018-02-04] MEDS: Enoxaparin Inj 40 MG/0.4 ML Syringe SQ SCH (22:44)
[2018-02-05] MEDS: Oral Hygiene Kit OROPHARYNG SCH ×4 (01:11→18:44)
[2018-02-05] MEDS ORDERED: Pharmacy Ordered Lab Info OTHER ONE (02:45)
[2018-02-05] MEDS: Insulin NovoLIN Regular Correctional Sugar Inj SQ SCH ×5 (03:19→21:57)
--- NOTE | 2018-02-05 03:47 | XR ---
EXAM DATE: 02/05/2018 3:40 AM EST AGE/SEX: 32 years / Female INDICATIONS: Respiratory failure. CLINICAL DATA: This is the patient's subsequent encounter. Patient reports that signs and symptoms h ave been present for 2 weeks and indicates a pain score of Nonresponsive. MEDICAL/SURGICAL HISTORY: . Acute respiratory failure with hypoxia and hypercarbia. Hepatitis C . Pneumonia. Sepsis. Leukocytosis. Hyperglycemia. Thrombocytopenia. Anxiety. Substance use. Borderlin e personality disorder. ARDS. Smoker. Transaminitis. None. [place] [facility] [place]. . FINDINGS: Right greater the left basilar predominant parenchymal opacities are again seen of both lungs, not si gnificantly changed. No large effusion demonstrated. No pneumothorax. Heart size stable, upper limits of normal. Endotracheal tube and nasogastric tube out. There is a right internal jugular central venous catheter again seen with tip in the superior vena cava. CONCLUSION: No significant change patchy infiltrates of both lungs, right more so than left. Interim extubation a nd nasogastric tube removal. Electronically signed by: Lv Don MD Board Certified Radiologist 02/05/2018 3:46 AM EST
[2018-02-05 03:52] LABS: Anion Gap 6 meq/L (5-15); Blood Urea Nitrogen 21 mg/dL (7-18); Calcium 7.1 mg/dL (8.5-10.1); Carbon Dioxide 33.7 meq/L (21.0-32.0); Chloride 110 meq/L (98-107); Glomerular Filtration Rate Greater Than 89 mL/min (>89); Glucose,Random 158 mg/dL (74-106); Magnesium 1.6 mg/dL (1.5-2.5); Phosphorus 2.3 mg/dL (2.5-4.9); Potassium 3.4 meq/L (3.5-5.1); Sodium 150 meq/L (136-145); Vancomycin,Trough 5.7 mcg/mL (5.0-10.0)
[2018-02-05 04:07] LABS: Albumin 2.4 g/dL (3.4-5.0); Calcium-Albumin Corrected 8.4 mg/dL (8.5-10.1)
[2018-02-05] MEDS: Vancomycin Inj 1,250 MG in Sodium Chlor 0.9% Inj 250 ML IV.SIG SCH ×2 (06:13→18:45)
--- NOTE | 2018-02-05 07:55 | P.PNCC ---
Subjective Subjective Remarks/Hospital Course: This is a 32-year-old female that presented to the emergency department last evening. Per report reviewed the patient had complaints myalgias, nausea, vomiting diarrhea in conjunction fever and chills per review of the records the patient went to an urgent care center on and was diagnosed with the flu and subsequently sent home the patient stated her symptoms worsen so she presented to [facility] ED on 2017. Upon presentation imaging and laboratory studies were performed that initially revealed a significant leukocytosis with a WBC count of 20.8, hypokalemia and a chest x-ray revealing extensive bilateral airspace disease. The patient was bolused with IV fluids, and received prophylactic antibiotics, blood cultures were obtained. The patient was admitted to ICU at [place] and ICU was consulted on 01/28/2018 at 2059 ,and was placed on BiPAP overnight with worsening symptomatology. Respiratory rate throughout the night was noted to be in the high 30s-50, with O2 saturation 87-91 % throughout the night. Upon my arrival this am, I examined the patient at 0615, and upon my evaluation this a.m. was noted to be extremely dyspneic, unable to speak secondary to extreme dyspnea, respiratory rate 48-50, and O2 sat 86-87%. A stat ABG was obtained PaO2 was noted to be 84, on 100%, and the patient kept stating she could not breathe. The patient was emergently intubated x1 attempt. Visually O2 saturation remained in the mid 80s-88 % on PEEP 12, FIO2 of 100%, with a slightly extended I- time. A stat ABG was performed PaO2 was noted to be 72, ventilator adjustments continued to optimize oxygenation. Emergent A-line was placed for frequent blood sampling, to evaluate oxygenation. The patient was noted to be in a sinus tach the patient was bolused with additional IV fluids 2 L and placed on sedation, to include, Versed , propofol, fentanyl infusions. The patient's past medical history is significant for hepatitis C, borderline personality disorder Funes acted 2017 secondary to chronic anxiety per records reviewed the patient takes Klonopin. 01/30: The patient's oxygenation moved by midday 01/29, and the patient was transferred via ambulance to [facility]. On her arrival the patient had a CVL placed, echo performed peer and the patient was placed on prone bed for prone positioning. Upon prone positioning, the patient's O2 saturation improved. FiO2 currently is at 60% when patient is in prone position with O2 sat of 100%. The patient remains deeply sedated with neuromuscular blockade Nemex for prone positioning. Urine output is equivalent to 1 cc/kg/h the patient was noted to have a metabolic acidosis this a.m., 50 mEq of sodium bicarbonate was given, IV fluids changed to one half normal saline at 100 cc/ hour. Noted lactic acidemia now resolved. One bottle blood culture showed gram -positive cocci. Discussed with patient's mother and permission granted to obtain HIV labs, deemed medically necessary per ID Dr. Carballo. 01/31: Decreasing FiO2 requirements at this time. Chest x-ray suggestive of interstitial edema, Lasix 40 mg x1 dose provided. IV fluids decreased to 42 cc/ hr . Secondary to prone positioning StatLock removed and central line sutured in place, to prevent possible dislodgment and prone position. Cultures revealed sputum MRSA, and blood gram-positive cocci. HIV testing labs negative. 02/01: Noted improvement clinically and respiratory status O2 requirements have been decreased 0.45% and a PEEP of 8. Patient noted to have a positive fluid balance was diuresed yesterday, chest x-ray shows persistent pulmonary edema Lasix dosing increased to twice daily IV fluids have now been discontinued. Noted thrombocytopenia, heparin platelet antibody has been ordered. Colitis currently being replaced. 02/02: fio2 continues to improve. supinated today and remains stable x 8 hrs. can likely transition off RotaProne bed today. continues to be very volume overloaded, although adequate start to diuresis yesterday. 02/03: The patient was removed from rota prone bread at 1800 yesterday. The patient continues to improve oxygenation. Versed continually being weaned down in anticipation for CPAP trials. Dietary consult has been initiated for tube feeds. 02/04: Afebrile. the patient remained on CPAP trials throughout yesterday afternoon, placed back on a rate last evening. CPAP trials have been reinitiated this a.m. SBT parameters currently being obtain ABG within normal limits plan for possible extubation today Subjective: 02/05 Tolerated extubation yesterday and remains on 5 L nasal cannula. Has passed bedside swallow evaluation and is requesting to advance diet. Temp max 100.5. Sputum culture 02/03 pending. On cefepime, azithro and vanc per ID. Has been diuresed aggressively. Creatinine normal, alkalosis. Remove invasive lines and Garcia today. Out of bed Objective Vital Signs / I&O: Vital Signs 02/04/18 08:00 02/04/18 10:00 02/04/18 11:08 Temperature 100.5 F H Pulse Rate 80 92 H 85 Respiratory Rate 14 20 Blood Pressure 118/62 Pulse Oximetry 100 02/04/18 12:00 02/04/18 14:00 02/04/18 14:46 Temperature 100.2 F H Pulse Rate 82 86 94 H Respiratory Rate 19 23 Blood Pressure 121/74 Pulse Oximetry 95 02/04/18 16:00 02/04/18 18:00 02/04/18 19:00 Temperature 100.1 F H Pulse Rate 83 100 H 91 H Respiratory Rate 20 24 Blood Pressure 132/74 138/75 Pulse Oximetry 94 L 93 L 02/04/18 19:43 02/04/18 20:00 02/04/18 21:00 Temperature 99.7 F H Pulse Rate 93 H 110 H 122 H Respiratory Rate 18 28 H 28 H Blood Pressure 135/77 137/81 Pulse Oximetry 96 94 L 96 02/04/18 22:00 02/04/18 23:00 02/04/18 23:44 Temperature Pulse Rate 103 H 101 H 107 H Respiratory Rate 20 15 18 Blood Pressure 129/75 130/72 Pulse Oximetry 95 97 02/05/18 00:00 02/05/18 01:00 02/05/18 02:00 Temperature Pulse Rate 122 H 100 H 85 Respiratory Rate 20 17 19 Blood Pressure 128/82 138/78 128/72 Pulse Oximetry 94 L 98 100 02/05/18 03:00 02/05/18 03:32 02/05/18 03:56 Temperature Pulse Rate 96 H 105 H Respiratory Rate 20 18 Blood Pressure 133/85 Pulse Oximetry 99 93 L 02/05/18 07:00 Temperature Pulse Rate 107 H Respiratory Rate 18 Blood Pressure Pulse Oximetry Intake & Output 02/04/18 02/05/18 02/05/18 18:59 06:59 18:59 Intake Total 1667.5 / 1667.5 350 / 350 Output Total 4250 / 4250 Balance -2582.5 / -2582.5 350 / 350 Intake: IV 1187.5 / 1187.5 350 / 350 Diprivan 1000 mg/100 ml Inj 1, 120 / 120 000 mg In 100 ml @ 5 MCG/KG/MIN 1.998 mls/hr IV.CONT TITRATE PRN Rx#:[id number] Azithromycin Inj 500 MG In NS 250 / 250 250 / 250 Inj 250 ML @ 250 mls/hr IV.SIG Q24H BENOIT Rx#:[id number] Maxipime Inj 2,000 MG In NS Inj 100 / 100 100 / 100 100 ML @ 200 mls/hr IV.SIG Q8H EBNOIT Rx#:[id number] KCl 40 mEq Premix Inj 40 meq In 100 / 100 100 ml @ 25 mls/hr IV.SIG UNSCH PRN Rx#:[id number] Glycophos Inj 30 MMOL In NS Inj 280 / 280 250 ML @ 42 mls/hr IV.SIG UNSCH PRN Rx#:[id number] Vancomycin Inj 1,250 MG In NS 262.5 / 262.5 Inj 250 ML @ 250 mls/hr IV.SIG Q18H BENOIT Rx#:[id number] fentaNYL 10 mcg/mL Premix Drip 75 / 75 2,500 mcg In 250 ml @ 50 MCG/HR 5 mls/hr IV.SIG TITRATE PRN Rx #:[id number] Oral 480 / 480 Output: Urine 4150 / 4150 Stool 100 / 100 Other: Date of Last Bowel Movement 02/03/18 02/03/18 Result Diagrams: 02/04/18 06:27 02/05/18 02:45 Objective Remarks: GENERAL: Young female, sitting up in bed, alert and conversant. SKIN: Warm and dry. HEAD: Atraumatic. Normocephalic. EYES: Pupils equal and round. No scleral icterus. No injection or drainage. ENT: No nasal bleeding or discharge. Mucous membranes pink and moist. NECK: Trachea midline. No JVD. CARDIOVASCULAR: Normal rate, regular rhythm. sinus on the monitor. RESPIRATORY: No accessory muscle use. Rales in right base. Occasional rhonchi GASTROINTESTINAL: Abdomen soft, non-tender, nondistended. Bowel sounds present. : Garcia in place with light yellow urine output. MUSCULOSKELETAL: Extremities without clubbing, cyanosis, 1+ generalized edema. No obvious deformities. Bruising noted on right forehead left great toe 2/2 rota prone bed positioning. Also skin breakdown medial lower legs bilaterally. NEUROLOGICAL: Awake, oriented to person, place, circumstance. She does move all extremities to comand but seems generally weak 4+ out of 5 Procedures: 01/31: Sutured right IJ, StatLock removed. Assessment and Plan - Problem List (1) Acute respiratory failure with hypoxia and hypercarbia Code(s): J96.01 - Acute respiratory failure with hypoxia; J96.02 - Acute respiratory failure with hypercapnia Status: Resolved (2) Hepatitis Code(s): K75.9 - Inflammatory liver disease, unspecified Status: Acute (3) Bilateral pneumonia Code(s): J18.9 - Pneumonia, unspecified organism Status: Acute (4) Sepsis Code(s): A41.9 - Sepsis, unspecified organism Status: Acute (5) Hypoxia Code(s): R09.02 - Hypoxemia Status: Acute (6) Leukocytosis Code(s): D72.829 - Elevated white blood cell count, unspecified Status: Acute (7) Hyperglycemia Code(s): R73.9 - Hyperglycemia, unspecified Status: Acute (8) Thrombocytopenia Code(s): D69.6 - Thrombocytopenia, unspecified Status: Acute - Assessment and Plan Plan: Plan by systems: Neurologic: Anxiety disorder Borderline personality disorder Substance use disordercocaine abuse Acetaminophen 650 mg every 6 hours as needed for temperature greater than 101.0 01/28 urine drug screen-positive for cocaine Deconditioning OT consult. Daily PT. Out of bed to chair. Respiratory: Acute hypoxemic and hypercarbic respiratory failure Bilateral pneumonia Tobacco use disorder ARDS bilateral pulmonary edema- severe methylprednisolone 125mg x 1 dose , continued 60 mg every 8 hrs 01/28 Sputum culture- NGTD Legionella, pneumococcal urine antigens-neg Influenza antigens A/Bneg 01/29-intubated 7.5 ETT 22 at [facility] 01/28chest x-ray widespread diffuse airspace disease 01/29 chest [id number] inflammatory response Continue methylprednisolone 60 mg every 8hr Pulmonology has been consulted previously prior to intubation following along F/U Chest x-ray -stable. Continue Lasix to 60mg iv q6h 02/03-begin CPAP trials clinically tolerated 02/04- Extubated Cardiovascular: Sinus tachycardia- resolved Maintain MAP > 65mmHg 01/28 Echo EF 40-45%, moderately dilated left ventricle, LAD infarct vs. Taktsubo cardiomyopathy, no vegetations noted PAP 42 Renal/FEN: Remove Garcia 02/05. GI: Hepatitis C Transaminitis Metabolic alkalosis Hypernatremia - Related to diuresis. Patient should self-correct now that diet advanced. Electrolyte derangement Has passed bedside swallow evaluation. Advance to regular diet Monitor CMP Electrolyte replacement per ICU protocol Heme/ID: MRSA Pneumonia Severe sepsis Leukocytosis-resolved ARDS Hepatitis C AB positive - RNA viral load pending. Thrombocytopenia 01/28-Legionella, mycoplasma, pneumococcal antigens-negative 01/28 sputum culture-negative ID consulted-Dr. Carballo following. On cefepime, vancomycin, azithromycin per ID. 01/28 Blood MRSA. Subsequent Blood culture 02/02 NGTD. sputum-MRSA HIV- negative, CD4 185 F/U HCV PCR 02/02 Heparin platelet antibody-negative Endocrine: Hyperglycemia of critical illness Glucose monitoring per ICU protocol 4 hours-post regimen -- SSI Prophylaxis: GI Prophylaxis famotidine DVT Prophylaxis -- SCDs Lines: Place PIV. D/c R IJ CVL (01/29#9) today. 01/29, Right rad arterial line --> d /c today. Arterial line left radial (dc'd 02/01), Level 3 follow-up (3) Bilateral pneumonia Qualifiers: Pneumonia type: due to unspecified organism Lung location: unspecified part of lung Qualified Code(s): J18.9 - Pneumonia, unspecified organism (4) Sepsis Qualifiers: Sepsis type: sepsis due to unspecified organism Qualified Code(s): A41.9 - Sepsis, unspecified organism (6) Leukocytosis Qualifiers: Leukocytosis type: unspecified Qualified Code(s): D72.829 - Elevated white blood cell count, unspecified
[2018-02-05 09:21] LABS: Baso % (Auto) 0.1 % (0.0-2.0); Eos % (Auto) 0.1 % (0.0-4.0); Hematocrit 32.1 % (35.0-46.0); Hemoglobin 11.2 gm/dL (11.6-15.3); Lymph # (Auto) 1.2 th/mm3 (1.0-4.8); Lymph % (Auto) 10.3 % (9.0-44.0); Mean Corpuscular HGB Conc 34.8 % (32.0-36.0); Mean Corpuscular Hemoglobin 36.5 pg (27.0-34.0); Mean Platelet Volume 10.2 fL (7.0-11.0); Mono # (Auto) 0.6 th/mm3 (0.0-0.9); Mono % (Auto) 5.1 % (0.0-8.0); Neut # (Auto) 9.6 th/mm3 (1.8-7.7); Neut % (Auto) 84.4 % (16.0-70.0); Platelet Count 139 th/mm3 (150-450); Red Blood Count 3.05 mil/mm3 (4.00-5.30); Red Cell Distribution Width 18.3 % (11.6-17.2); White Blood Count 11.3 th/mm3 (4.0-11.0)
--- NOTE | 2018-02-05 10:17 | P.PNPL ---
Subjective Interval history: Patient was extubated yesterday on %L oxygen. Afebrile. Hypertensive. Physical Exam Vital signs: Vital Signs 02/04/18 11:08 02/04/18 12:00 02/04/18 14:00 Temperature 100.2 F H Pulse Rate 85 82 86 Respiratory Rate 20 19 Blood Pressure 121/74 Pulse Oximetry 95 02/04/18 14:46 02/04/18 16:00 02/04/18 18:00 Temperature 100.1 F H Pulse Rate 94 H 83 100 H Respiratory Rate 23 20 Blood Pressure 132/74 Pulse Oximetry 94 L 02/04/18 19:00 02/04/18 19:43 02/04/18 20:00 Temperature 99.7 F H Pulse Rate 91 H 93 H 110 H Respiratory Rate 24 18 28 H Blood Pressure 138/75 135/77 Pulse Oximetry 93 L 96 94 L 02/04/18 21:00 02/04/18 22:00 02/04/18 23:00 Temperature Pulse Rate 122 H 103 H 101 H Respiratory Rate 28 H 20 15 Blood Pressure 137/81 129/75 130/72 Pulse Oximetry 96 95 97 02/04/18 23:44 02/05/18 00:00 02/05/18 01:00 Temperature Pulse Rate 107 H 122 H 100 H Respiratory Rate 18 20 17 Blood Pressure 128/82 138/78 Pulse Oximetry 94 L 98 02/05/18 02:00 02/05/18 03:00 02/05/18 03:32 Temperature Pulse Rate 85 96 H 105 H Respiratory Rate 19 20 18 Blood Pressure 128/72 133/85 Pulse Oximetry 100 99 02/05/18 03:56 02/05/18 04:00 02/05/18 05:00 Temperature Pulse Rate 125 H 111 H Respiratory Rate 31 H 24 Blood Pressure 146/90 H 135/76 Pulse Oximetry 93 L 92 L 95 02/05/18 06:00 02/05/18 07:00 02/05/18 07:54 Temperature Pulse Rate 100 H 106 H Respiratory Rate 17 24 Blood Pressure 131/75 131/80 Pulse Oximetry 95 02/05/18 08:00 Temperature Pulse Rate 103 H Respiratory Rate 18 Blood Pressure 125/76 Pulse Oximetry Intake & Output 02/04/18 02/05/18 02/05/18 18:59 06:59 18:59 Intake Total 1667.5 / 1667.5 1150 / 1150 40 / 40 Output Total 4250 / 4250 5800 / 5800 Balance -2582.5 / -2582.5 -4650 / -4650 40 / 40 Weight 70.5 kg Intake: IV 1187.5 / 1187.5 350 / 350 40 / 40 Precedex Inj 200 MCG In NS Inj 40 / 40 48 ML @ 0.2 MCG/KG/HR 3.9 mls/ hr IV.CONT TITRATE PRN Rx#: [id number] Diprivan 1000 mg/100 ml Inj 1, 120 / 120 000 mg In 100 ml @ 5 MCG/KG/MIN 1.998 mls/hr IV.CONT TITRATE PRN Rx#:[id number] Azithromycin Inj 500 MG In NS 250 / 250 250 / 250 Inj 250 ML @ 250 mls/hr IV.SIG Q24H BENOIT Rx#:[id number] Maxipime Inj 2,000 MG In NS Inj 100 / 100 100 / 100 100 ML @ 200 mls/hr IV.SIG Q8H BENOIT Rx#:[id number] KCl 40 mEq Premix Inj 40 meq In 100 / 100 100 ml @ 25 mls/hr IV.SIG UNSCH PRN Rx#:[id number] Glycophos Inj 30 MMOL In NS Inj 280 / 280 250 ML @ 42 mls/hr IV.SIG UNSCH PRN Rx#:[id number] Vancomycin Inj 1,250 MG In NS 262.5 / 262.5 Inj 250 ML @ 250 mls/hr IV.SIG Q18H BENOIT Rx#:[id number] fentaNYL 10 mcg/mL Premix Drip 75 / 75 2,500 mcg In 250 ml @ 50 MCG/HR 5 mls/hr IV.SIG TITRATE PRN Rx #:[id number] Oral 480 / 480 800 / 800 Output: Urine 4150 / 4150 Stool 100 / 100 300 / 300 Urine Amount (Catheter) 5500 / 5500 Indwelling Urethral Catheter 5500 / 5500 Other: Date of Last Bowel Movement 02/03/18 02/03/18 - Constitutional no acute distress - Routine HEENT Exam Head: Present: normocephalic, atraumatic Eye: Present: EOMI, PERRL, normal accommodation, conjunctivae pink ENT: Present: mucous membranes moist - Routine Neck Exam Present: supple, full ROM, trachea midline - Routine Respiratory Exam Present: CTA bilaterally - Routine Cardiovascular Exam Present: RRR, S1, S2, tachycardia - Routine Abdominal Exam Present: soft, normoactive bowel sounds - Routine Skin Exam Present: intact, dry - Routine Neurological Exam Present: alert, oriented X3, CN II-XII intact - Urinary Catheter Management Indwelling Urethral Catheter Cath placed during this visit: yes Reason for continuing: Other continuation reason Insertion date: 01/29/18 Insertion time: 07:15 Assessment and Plan - Assessment (1) Acute respiratory failure with hypoxia and hypercarbia Code(s): J96.01 - Acute respiratory failure with hypoxia; J96.02 - Acute respiratory failure with hypercapnia Status: Resolved (2) Hepatitis Code(s): K75.9 - Inflammatory liver disease, unspecified Status: Acute (3) Bilateral pneumonia Code(s): J18.9 - Pneumonia, unspecified organism Status: Acute Qualifiers: Pneumonia type: due to unspecified organism Lung location: unspecified part of lung Qualified Code(s): J18.9 - Pneumonia, unspecified organism (4) Sepsis Code(s): A41.9 - Sepsis, unspecified organism Status: Acute Qualifiers: Sepsis type: sepsis due to unspecified organism Qualified Code(s): A41.9 - Sepsis, unspecified organism (5) Hypoxia Code(s): R09.02 - Hypoxemia Status: Acute (6) Leukocytosis Code(s): D72.829 - Elevated white blood cell count, unspecified Status: Acute Qualifiers: Leukocytosis type: unspecified Qualified Code(s): D72.829 - Elevated white blood cell count, unspecified (7) Hyperglycemia Code(s): R73.9 - Hyperglycemia, unspecified Status: Acute (8) Thrombocytopenia Code(s): D69.6 - Thrombocytopenia, unspecified Status: Acute - Plan 1. Resp Insuff s/p Extubation 02/04 2. s/p ARDS 3. MRSA pneumonia. 4. Staphylococcus aureus bacteremia. 5. Hepatitis C. 6. Anemia. 7. Thrombocytopenia. 8. Hypernatremia. Plan Wean down oxygen as fabi and maintain sats >92%. Bronchodilators, IS Solu-Medrol 40mg IV Q12 s/p Diamox for Alkalosis CXR today: No significant change patchy infiltrates of both lungs, R>L Abx per ID -vancomycin, Cefepime and azithromycin. 01/28 BC: Staph Aureus. Sputum cx: MRSA 01/29. Influenza screening negative on 01/28, Strep pneumonia and Legionella urinary Ag negative on 01/29 Follow up on BC from 02/02: NGTD. Follow up on sputum cx 02/03 Optimize BP control. GI/DVT prophylaxis. on Pepcid 20 mg q.12 and Lovenox 40 mg subcutaneous daily.
[2018-02-05] MEDS: Sodium Chloride 0.9% 2 ML Flush BID IV.FLUSH SCH ×2 (11:22→22:28)
[2018-02-05] MEDS: Famotidine 20 MG Tablet PO SCH ×2 (11:22→22:27)
[2018-02-05] MEDS: Chlorhexidine 0.12% Oral Kit 15 ML UDC OROPHARYNG SCH ×2 (11:22→22:28)
[2018-02-05] MEDS: MethylPREDNISolone Sod Succinate Inj 40 MG/ML Vial IV.PUSH SCH (12:08)
--- NOTE | 2018-02-05 12:29 | P.PNID ---
Subjective Remarks: Patient is on O2 via nasal cannula. Awake and alert. No complaints. Upper airway sounds congested. Reports coughing up sputum. Has low-grade fever. Temperature improved. Has persistent lung infiltrates. Repeat blood culture has no growth. Sputum culture has MRSA. 32-year-old white female who presented to the emergency department yesterday evening with respiratory symptoms. Emergency department report stated that the patient developed symptoms about a week ago consisting of body aches, nausea, vomiting, diarrhea, fever, chills, and sweats. She was seen at an urgent care center about a week ago and was diagnosed with flu. She subsequently developed a sore throat and pain on swallowing and loss of the voice as well as nonproductive cough. Her energy level is also reported to be very low. The patient was seen in the emergency department and temperature was 98.6, heart rate was elevated at 122, and white count was elevated at 20.8. She was put on nonrebreather mask and oxygen saturation was noted to be between 88% and 92%. The patient was subsequently intubated. Antibiotics: Cefepime Azithromycin Vancomycin Past Medical History: PAST MEDICAL HISTORY: Reportedly negative. The patient has been evaluated for psychiatric adjustment disorder. Allergies/Adverse Reactions: Allergies Sulfa (Sulfonamide Antibiotics) Allergy (Intermediate, Verified 05/14/17 22:25) PT STATES INCREASES HER TEMP Objective Vital Signs 02/04/18 14:00 02/04/18 14:46 02/04/18 16:00 Temperature 100.1 F H Pulse Rate 86 94 H 83 Respiratory Rate 23 20 Blood Pressure 132/74 Pulse Oximetry 94 L 02/04/18 18:00 02/04/18 19:00 02/04/18 19:43 Temperature Pulse Rate 100 H 91 H 93 H Respiratory Rate 24 18 Blood Pressure 138/75 Pulse Oximetry 93 L 96 02/04/18 20:00 02/04/18 21:00 02/04/18 22:00 Temperature 99.7 F H Pulse Rate 110 H 122 H 103 H Respiratory Rate 28 H 28 H 20 Blood Pressure 135/77 137/81 129/75 Pulse Oximetry 94 L 96 95 02/04/18 23:00 02/04/18 23:44 02/05/18 00:00 Temperature Pulse Rate 101 H 107 H 122 H Respiratory Rate 15 18 20 Blood Pressure 130/72 128/82 Pulse Oximetry 97 94 L 02/05/18 01:00 02/05/18 02:00 02/05/18 03:00 Temperature Pulse Rate 100 H 85 96 H Respiratory Rate 17 19 20 Blood Pressure 138/78 128/72 133/85 Pulse Oximetry 98 100 99 02/05/18 03:32 02/05/18 03:56 02/05/18 04:00 Temperature Pulse Rate 105 H 125 H Respiratory Rate 18 31 H Blood Pressure 146/90 H Pulse Oximetry 93 L 92 L 02/05/18 05:00 02/05/18 06:00 02/05/18 07:00 Temperature Pulse Rate 111 H 100 H 106 H Respiratory Rate 24 17 24 Blood Pressure 135/76 131/75 131/80 Pulse Oximetry 95 02/05/18 07:54 02/05/18 08:00 02/05/18 11:00 Temperature Pulse Rate 103 H 118 H Respiratory Rate 18 20 Blood Pressure 125/76 Pulse Oximetry 95 Intake & Output 02/04/18 02/05/18 02/05/18 18:59 06:59 18:59 Intake Total 1667.5 / 1667.5 1150 / 1150 402.5 / 402.5 Output Total 4250 / 4250 5800 / 5800 Balance -2582.5 / -2582.5 -4650 / -4650 402.5 / 402.5 Weight 70.5 kg Intake: IV 1187.5 / 1187.5 350 / 350 402.5 / 402.5 Precedex Inj 200 MCG In NS Inj 40 / 40 48 ML @ 0.2 MCG/KG/HR 3.9 mls/ hr IV.CONT TITRATE PRN Rx#: [id number] Diprivan 1000 mg/100 ml Inj 1, 120 / 120 000 mg In 100 ml @ 5 MCG/KG/MIN 1.998 mls/hr IV.CONT TITRATE PRN Rx#:[id number] Azithromycin Inj 500 MG In NS 250 / 250 250 / 250 Inj 250 ML @ 250 mls/hr IV.SIG Q24H BENOIT Rx#:[id number] Maxipime Inj 2,000 MG In NS Inj 100 / 100 100 / 100 100 / 100 100 ML @ 200 mls/hr IV.SIG Q8H BENOIT Rx#:[id number] KCl 40 mEq Premix Inj 40 meq In 100 / 100 100 ml @ 25 mls/hr IV.SIG UNSCH PRN Rx#:[id number] Glycophos Inj 30 MMOL In NS Inj 280 / 280 250 ML @ 42 mls/hr IV.SIG UNSCH PRN Rx#:[id number] Vancomycin Inj 1,250 MG In NS 262.5 / 262.5 262.5 / 262.5 Inj 250 ML @ 250 mls/hr IV.SIG Q18H BENOIT Rx#:[id number] fentaNYL 10 mcg/mL Premix Drip 75 / 75 2,500 mcg In 250 ml @ 50 MCG/HR 5 mls/hr IV.SIG TITRATE PRN Rx #:[id number] Oral 480 / 480 800 / 800 Output: Urine 4150 / 4150 Stool 100 / 100 300 / 300 Urine Amount (Catheter) 5500 / 5500 Indwelling Urethral Catheter 5500 / 5500 Other: Date of Last Bowel Movement 02/03/18 02/03/18 02/03/18 17:45 Sputum - Endotracheal Gram Stain - Final 02/03/18 17:45 Sputum - Endotracheal Sputum Culture - Final S. aureus MRSA 02/02/18 03:40 Blood - Peripheral Aerobic Blood Culture - Preliminary No growth in 3 days 02/02/18 03:40 Blood - Peripheral Anaerobic Blood Culture - Preliminary No growth in 3 days 02/02/18 03:05 Blood - Peripheral Aerobic Blood Culture - Preliminary No growth in 3 days 02/02/18 03:05 Blood - Peripheral Anaerobic Blood Culture - Preliminary No growth in 3 days 01/28/18 18:50 Blood - Peripheral Aerobic Blood Culture - Final No growth in 5 days 01/28/18 18:50 Blood - Peripheral Anaerobic Blood Culture - Final No growth in 5 days Lab - Hematology Results 02/04/18 02/05/18 06:27 08:28 WBC 8.3 11.3 H RBC 2.91 L 3.05 L Hgb 10.4 L 11.2 L Hct 30.5 L 32.1 L MCV 104.7 H 105.0 H MCH 35.6 H 36.5 H MCHC 34.0 34.8 RDW 19.0 H 18.3 H Plt Count 125 L 139 L MPV 9.0 10.2 Neut % (Auto) 84.4 H Lymph % (Auto) 10.3 Collier % (Auto) 5.1 Eos % (Auto) 0.1 Baso % (Auto) 0.1 Neut # (Auto) 9.6 H Lymph # (Auto) 1.2 Collier # (Auto) 0.6 Eos # (Auto) 0.0 Baso # (Auto) 0.0 WBC Differential . Differential Comment Auto diff final Lab - Chemistry Results 02/03/18 02/03/18 02/03/18 16:45 17:30 20:33 Sodium Potassium 3.4 L Chloride Carbon Dioxide Anion Gap BUN Creatinine Estimated GFR POC Glucose 171 H 161 H Random Glucose Calcium Calcium Adj for Albumin Phosphorus 1.3 L Magnesium 1.7 Troponin I Albumin 02/04/18 02/04/18 02/04/18 02:52 06:27 07:36 Sodium 153 H Potassium 3.3 L Chloride 117 H Carbon Dioxide 28.7 Anion Gap 7 BUN 28 H Creatinine 0.52 Estimated GFR Greater than 89 POC Glucose 167 H 159 H Random Glucose 158 H Calcium 6.7 L* Calcium Adj for Albumin 8.1 L Phosphorus 2.1 L Magnesium 1.7 Troponin I Albumin 2.2 L 02/04/18 02/05/18 02/05/18 12:57 00:29 00:30 Sodium Potassium Chloride Carbon Dioxide Anion Gap BUN Creatinine Estimated GFR POC Glucose 146 H 123 H Random Glucose Calcium Calcium Adj for Albumin Phosphorus 1.6 L Magnesium Troponin I Albumin 02/05/18 02/05/18 02/05/18 02:45 03:18 08:45 Sodium 150 H Potassium 3.4 L Chloride 110 H Carbon Dioxide 33.7 H Anion Gap 6 BUN 21 H Creatinine 0.44 L Estimated GFR Greater than 89 POC Glucose 142 H 155 H Random Glucose 158 H Calcium 7.1 L* Calcium Adj for Albumin 8.4 L Phosphorus 2.3 L Magnesium 1.6 Troponin I Albumin 2.4 L 02/05/18 09:58 Sodium Potassium Chloride Carbon Dioxide Anion Gap BUN Creatinine Estimated GFR POC Glucose Random Glucose Calcium Calcium Adj for Albumin Phosphorus Magnesium Troponin I 0.07 H Albumin Imaging: ITS Impressions Chest CT 01/28/18 18:20 CONCLUSION: Extensive bilateral airspace disease Abdomen X-Ray 02/03/18 00:37 CONCLUSION: 1. OG tube tip in the distal stomach near the duodenal bulb. Chest X-Ray 02/05/18 04:00 CONCLUSION: No significant change patchy infiltrates of both lungs, right more so than left. Interim extubation and nasogastric tube removal. Physical Exam: GENERAL: Awake and alert. No acute distress. Looks a little drowsy. HEENT: Extraocular movements grossly intact. Pupils reactive to light. No icterus. NECK: No adenopathy or swelling. LUNGS: Coarse breath sounds. HEART: Normal S1 and S2, without audible murmurs, rubs, or gallops. ABDOMEN: Decreased bowel sounds. Soft, nontender. No palpable mass. EXTREMITIES: No clubbing. No cyanosis, trace edema.. SKIN: No rash. warm and moist. NEUROLOGIC: Nonfocal PSYCHIATRIC: Calm. Lines without evidence of infection. Assessment and Plan - Plan IMPRESSION: 1. Bilateral pneumonia. MRSA. 2. Bacteremia. Staph aureus. MSSA. 3. Hypoxia. Improved 4. Acute respiratory failure. Extubated 5. Elevated liver function tests. Improved. 6. Leukocytosis. Resolved. 7. ALLERGY TO SULFA. RECOMMENDATIONS: 1. Continue cefepime. 2. Stop azithromycin. 3. Continue vancomycin. 4. Monitor temperature 5. Monitor clinical status. I will be off this weekend. ID fusion operator MD available if needed.
[2018-02-05] MEDS: Labetalol 100 MG Tablet PO SCH ×2 (13:31→21:58)
[2018-02-05] MEDS: Potassium Chloride 25 MEQ Effervescent Tablet PO PRN (13:35)
[2018-02-05] MEDS: Potassium Phosphate 500 MG Soluble Tablet PO PRN ×2 (13:36→18:45)
[2018-02-05 13:51] LABS: Hepatitis C RNA (PCR) log IUs 2.84
--- NOTE | 2018-02-05 15:56 | MB ---
cc: Rodrick Mendoza MD DATE: 02/05/2018 REASON FOR CONSULTATION: Cardiomyopathy, consider ruling out underlying coronary artery disease. HISTORY OF PRESENT ILLNESS: The patient is a 32-year-old white female from whom history is somewhat difficult to elicit at the present time, with a history of migraine headaches, hepatitis C, who presented to the hospital about 8 days ago with cough and cold symptoms. Further workup suggested pneumonia and because of severe hypoxemia and worsening respiratory distress, she was intubated and placed on mechanical ventilation. She has been extubated within the last 24 hours. The patient vaguely describes some chest discomforts in the last few months, although she states they are "light" and of brief duration. In the last few weeks, she has noticed increasing shortness of breath, but believes the dyspnea has considerably improved now. She denies dizziness, syncope, palpitations, pedal edema, paroxysmal nocturnal dyspnea. A toxicology screen on admission was apparently positive for cocaine. PAST MEDICAL HISTORY: 1. Migraine headaches. 2. Hepatitis C. CURRENT CARDIAC MEDICATIONS: 1. Lovenox 40 mg subcutaneously q.24 hours. 2. Furosemide 40 mg IV every 8 hours. 3. Labetalol 100 mg p.o. b.i.d. ALLERGIES: SULFA. FAMILY HISTORY: There is no significant family history of early myocardial infarction. SOCIAL HISTORY: The patient smokes cigarettes. She denies cocaine abuse. She denies alcohol abuse. REVIEW OF SYSTEMS: As in history of present illness, otherwise negative or noncontributory. She also currently denies headache, abdominal pain, nausea, vomiting, melena, bright red blood per rectum. PHYSICAL EXAMINATION: VITAL SIGNS: Her blood pressure 125/76 with a pulse of 118, respirations 20. GENERAL: She is a well-developed, well-nourished white female, in no acute distress. NECK: Jugular venous pressure is normal. Carotid pulses are 2+ bilaterally and without bruits. CHEST: Reveals few scattered rhonchi anteriorly. CARDIAC: She has a regular rhythm and rate without S3, S4, or murmur. ABDOMEN: She has a soft, nontender abdomen. Bowel sounds are present. There is no definite hepatosplenomegaly. EXTREMITIES: Reveals no clubbing, cyanosis or edema. DIAGNOSTIC DATA: Chest x-ray from 02/05/2018 shows continued patchy infiltrates bilaterally, right greater than left. EKG from today at 9:51 a.m. shows sinus tachycardia, T-wave abnormality, consider anterior ischemia. LABORATORY DATA: Potassium 3.4, BUN 21, creatinine 0.44. Troponin 0.07. WBC 11.3, hemoglobin 11.2, platelets 139,000. IMPRESSION: Abnormal echocardiogram, EKG changes in this 32-year-old white female with a history of migraine headaches, hepatitis C, cocaine abuse, admitted with pneumonia/respiratory failure. Her echocardiogram has been reviewed. The findings are not entirely consistent with Takotsubo syndrome. She does appear to have segmental wall motion abnormalities, most notably in the mid to distal inferior, distal septal christian. She also has new T-wave inversion in the anterior leads on EKG today. Troponin level is slightly abnormal (0.07). History is somewhat difficult to elicit from the patient; she vaguely describes some recent brief atypical chest discomforts. She has no definite risk factors for coronary disease except for tobacco abuse. She also demonstrates a toxicology screen positive for cocaine. RECOMMENDATIONS: 1. Add an MARGI inhibitor to the labetalol. 2. Once she is out of the ICU, recommend nuclear stress testing. 3. Daily aspirin. MD CHANDLER Marks/katelyn , 03:36 PM , 03:44 PM OSMAN
--- NOTE | 2018-02-05 20:26 | ECG ---
Date Performed: 02/05/2018 Time Performed: 09:51:17 PTAGE: 32 years EKG: SINUS TACHYCARDIA WITH SHORT VT INTERVAL MODERATE T-WAVE ABNORMALITY, CONSIDER ANTERIOR ISC HEMIA ABNORMAL ECG PREVIOUS TRACING : 01/28/2018 18.06 DOCTOR: Kelin Morris Interpretating Date/Time 02/05/2018 20:24:51
[2018-02-05] MEDS: Enoxaparin Inj 40 MG/0.4 ML Syringe SQ SCH (21:58)
[2018-02-06] MEDS: MethylPREDNISolone Sod Succinate Inj 40 MG/ML Vial IV.PUSH SCH ×3 (01:49→22:29)
[2018-02-06] MEDS: Insulin NovoLIN Regular Correctional Sugar Inj SQ SCH ×5 (08:00→21:45)
[2018-02-06] MEDS: Oral Hygiene Kit OROPHARYNG SCH ×4 (08:16→16:58)
[2018-02-06] MEDS: Vancomycin Inj 1,250 MG in Sodium Chlor 0.9% Inj 250 ML IV.SIG SCH (08:18)
--- NOTE | 2018-02-06 08:30 | P.PNCA ---
Subjective Interval history: Some increase in dyspnea this morning. Slept fairly well. No CP, dizziness, palpitations. Medications and Allergies Active Medications: Active Medications Albuterol (Duoneb Neb (Chanda)) 1 ampul NEB Q4HR NEB [facility] Last Admin: 02/06/18 05:08 Dose: 1 ampul Albuterol (Duoneb Neb (Prn)) 1 ampul NEB Q2HR NEB PRN PRN Reason: DYSPNEA Last Admin: 02/05/18 22:01 Dose: 1 ampul Aspirin (Ecotrin) 81 mg PO DAILY [facility] Chlorhexidine Gluconate (Peridex 0.12% Oral Kit) 15 ml OROPHARYNG BID@0800, 2000 [facility] Last Admin: 02/05/18 22:28 Dose: Not Given Dextrose (D50w Vial) 50 ml IV.PUSH UNSCH PRN PRN Reason: PER HYPOGLYCEMIA PROTOCOL Enalapril Maleate (Vasotec) 5 mg PO BID [facility] Last Admin: 02/05/18 21:58 Dose: 5 mg Enoxaparin Sodium (Lovenox Inj) 40 mg SQ Q24H [facility] Last Admin: 02/05/18 21:58 Dose: 40 mg Famotidine (Pepcid) 20 mg PO BID [facility] Last Admin: 02/05/18 22:27 Dose: 20 mg Furosemide (Lasix Inj) 40 mg IV.PUSH Q8H [facility] Last Admin: 02/06/18 01:56 Dose: 40 mg Glucagon (Glucagon Inj) 1 mg OTHER PRN PRN PRN Reason: for Hypoglycemia Protocol Propofol (Diprivan 1000 Mg/100 Ml Inj) 1,000 mg in 100 mls @ 1.998 mls/hr IV.CONT TITRATE PRN; Protocol PRN Reason: Per Protocol Last Titration: 02/04/18 08:16 Dose: Infused Magnesium Sulfate 2 gm/ Sodium (Chloride) 100 mls @ 50 mls/hr IV.SIG UNSCH PRN PRN Reason: For Magnesium 1.2 - 1.6 mg/dL Last Infusion: 01/30/18 00:12 Dose: Infused Potassium Chloride (Kcl 40 Meq Premix Inj) 40 meq in 100 mls @ 25 mls/hr IV.SIG Q2H PRN PRN Reason: For Potassium 2.8 - 3.2 mEq/L Last Infusion: 02/03/18 08:25 Dose: Infused Potassium Chloride (Kcl 20 Meq Premix Inj) 20 meq in 100 mls @ 50 mls/hr IV.SIG Q2H PRN PRN Reason: For Potassium 3.3 - 3.5 mEq/L Potassium Chloride (Kcl 40 Meq Premix Inj) 40 meq in 100 mls @ 25 mls/hr IV.SIG UNSCH PRN PRN Reason: For Potassium 3.3 - 3.5 mEq/L Last Infusion: 02/04/18 07:23 Dose: Infused Potassium Chloride (Kcl 20 Meq Premix Inj) 20 meq in 100 mls @ 50 mls/hr IV.SIG Q2H PRN PRN Reason: For Potassium 2.8 - 3.2 mEq/L Magnesium Sulfate 4 gm/ Sodium (Chloride) 100 mls @ 50 mls/hr IV.SIG UNSCH PRN PRN Reason: For Magnesium 0.9 - 1.1 mg/dL Potassium Phosphate 30 mmol/ (Sodium Chloride) 260 mls @ 42 mls/hr IV.SIG UNSCH PRN PRN Reason: SEE LABEL COMMENTS Last Infusion: 02/03/18 14:34 Dose: Infused Sodium Glycerophosphate 30 (mmol/ Sodium Chloride) 280 mls @ 42 mls/hr IV.SIG UNSCH PRN PRN Reason: For Phosphorus < 2.5 mg/dL Last Infusion: 02/04/18 17:49 Dose: Infused Cefepime HCl 2,000 mg/ Sodium (Chloride) 100 mls @ 200 mls/hr IV.SIG Q8H [facility] Last Admin: 02/06/18 08:17 Dose: 100 mls/hr Vancomycin HCl 1,250 mg/ (Sodium Chloride) 262.5 mls @ 250 mls/hr IV.SIG Q12H [facility] Last Admin: 02/06/18 08:18 Dose: 250 mls/hr Insulin Human Regular (Novolin R Correctional Sugar Inj) 0 units SQ ACHS AND 3AM [facility]; Protocol Last Admin: 02/06/18 08:17 Dose: Not Given Labetalol HCl (Trandate) 100 mg PO BID [facility] Last Admin: 02/05/18 21:58 Dose: 100 mg Lorazepam (Ativan Inj) 0.25 mg IV.PUSH Q4H PRN PRN Reason: AGITATION OR ANXIETY Last Admin: 02/05/18 22:27 Dose: 0.25 mg Magnesium Oxide (Mag-Ox) 800 mg PO UNSCH PRN PRN Reason: For Magnesium 1.2 - 1.6 mg/dL Methylprednisolone Sodium Succinate (Solumedrol Inj) 40 mg IV.PUSH Q12H [facility] Last Admin: 02/06/18 01:49 Dose: 40 mg Miscellaneous Information ([facility] Ordered Lab Info) 0 each OTHER ONCE ONE Stop: 02/07/18 05:46 Miscellaneous Medication () 1 each OROPHARYNG 0000,0400,1200,1600 [facility] Last Admin: 02/06/18 08:17 Dose: Not Given Pharmacy Profile Note (Vancomycin Consult Pharmacy) 1 each OTHER UNSCH PRN PRN Reason: Pharmacy to dose Potassium Bicarb/Potassium Chloride (K-Lyte Cl Eff) 50 meq PO UNSCH PRN PRN Reason: For Potassium 3.3 - 3.5 mEq/L Last Admin: 02/05/18 13:35 Dose: 50 meq Potassium Phosphate (K-Phos Original) 2,000 mg PO Q4H PRN PRN Reason: Phosphorus Less Than 2.5 mg/dL Last Admin: 02/05/18 18:45 Dose: 2,000 mg Potassium Phosphate (K-Phos Original) 2,000 mg PO UNSCH PRN PRN Reason: SEE LABEL COMMENTS Sodium Chloride (Ns Flush) 2 ml IV.FLUSH BID [facility] Last Admin: 02/05/18 22:28 Dose: 2 ml Sodium Chloride (Ns Flush) 2 ml IV.FLUSH PRN PRN PRN Reason: FLUSH AFTER USING IV ACCESS Allergies Allergy/AdvReac Type Severity Reaction Status Date / Time Sulfa (Sulfonamide Allergy Intermediate Verified 05/14/17 22:25 Antibiotics) Home Medications Medication Instructions Recorded Confirmed Type No Known Home Medications 01/28/18 01/28/18 History Physical Exam Vital signs: Vital Signs 02/05/18 09:00 02/05/18 10:00 02/05/18 11:00 Temperature Pulse Rate 113 H 103 H 111 H Respiratory Rate 24 29 H 38 H Blood Pressure 134/80 131/86 146/85 H Pulse Oximetry 94 L 89 L 02/05/18 11:14 02/05/18 12:00 02/05/18 13:00 Temperature 99.5 F Pulse Rate 114 H 112 H 132 H Respiratory Rate 30 H 31 H 41 H Blood Pressure 141/90 H 136/86 143/91 H Pulse Oximetry 90 L 93 L 89 L 02/05/18 14:00 02/05/18 15:00 02/05/18 15:36 Temperature Pulse Rate 103 H 98 H 93 H Respiratory Rate 40 H 37 H 24 Blood Pressure 137/86 143/94 H Pulse Oximetry 90 L 93 L 02/05/18 16:00 02/05/18 16:54 02/05/18 17:00 Temperature 99.0 F Pulse Rate 83 92 H 90 Respiratory Rate 23 21 21 Blood Pressure 118/75 125/75 Pulse Oximetry 96 97 96 02/05/18 18:00 02/05/18 19:00 02/05/18 20:00 Temperature Pulse Rate 91 H 96 H 84 Respiratory Rate 20 19 25 H Blood Pressure 114/64 119/72 124/74 Pulse Oximetry 96 94 L 89 L 02/05/18 20:42 02/05/18 20:44 02/05/18 21:00 Temperature Pulse Rate 101 H 99 H Respiratory Rate 21 27 H Blood Pressure 144/75 H Pulse Oximetry 99 95 02/05/18 22:00 02/05/18 22:01 02/05/18 22:02 Temperature Pulse Rate 95 H 96 H Respiratory Rate 26 H 26 H Blood Pressure 133/86 Pulse Oximetry 92 L 93 L 02/05/18 23:00 02/06/18 00:00 02/06/18 00:12 Temperature Pulse Rate 101 H 81 86 Respiratory Rate 36 H 34 H 25 H Blood Pressure 139/83 148/87 H Pulse Oximetry 93 L 95 93 L 02/06/18 00:13 02/06/18 01:00 02/06/18 02:00 Temperature Pulse Rate 93 H 81 Respiratory Rate 32 H Blood Pressure 136/90 Pulse Oximetry 93 L 92 L 02/06/18 04:00 02/06/18 05:09 02/06/18 05:10 Temperature Pulse Rate 89 89 Respiratory Rate 26 H Blood Pressure 148/87 H Pulse Oximetry 95 02/06/18 06:00 Temperature Pulse Rate 89 Respiratory Rate Blood Pressure Pulse Oximetry Intake & Output 02/05/18 02/06/18 02/06/18 18:59 06:59 18:59 Intake Total 1222.5 / 1222.5 662.5 / 662.5 Output Total 3050 / 3050 2100 / 2099 Balance -1827.5 / -1827.5 -1437.5 / -1437.5 Weight 64 kg Intake: IV 502.5 / 502.5 362.5 / 362.5 Precedex Inj 200 MCG In NS Inj 40 / 40 48 ML @ 0.2 MCG/KG/HR 3.9 mls/ hr IV.CONT TITRATE PRN Rx#: [id number] Maxipime Inj 2,000 MG In NS Inj 200 / 200 100 / 100 100 ML @ 200 mls/hr IV.SIG Q8H [facility] Rx#:[id number] Vancomycin Inj 1,250 MG In NS 262.5 / 262.5 262.5 / 262.5 Inj 250 ML @ 250 mls/hr IV.SIG Q12H [facility] Rx#:[id number] Oral 720 / 720 100 / 100 Other 200 / 200 Output: Urine 2100 / 2100 Urine Amount (Catheter) 3050 / 3050 Indwelling Urethral Catheter 3050 / 3050 Other: Date of Last Bowel Movement 02/03/18 02/03/18 # Bowel Movements 0 - Constitutional no acute distress - Routine Neck Exam Absent: JVD - Routine Respiratory Exam Present: rhonchi - Routine Cardiovascular Exam Present: RRR, S1, S2. Absent: murmur, gallop - Routine Abdominal Exam Present: soft, normoactive bowel sounds. Absent: tenderness, organomegaly - Routine Extremities Exam Absent: cyanosis, clubbing, edema - Urinary Catheter Management Indwelling Urethral Catheter Cath placed during this visit: yes Reason for continuing: Other continuation reason Insertion date: 01/29/18 Insertion time: 07:15 Results 02/05/18 08:28 02/05/18 02:45 Cardiac Enzymes 02/05/18 Range/Units 09:58 Troponin I 0.07 H (0.02-0.05) ng/mL CBC 02/05/18 Range/Units 08:28 WBC 11.3 H (4.0-11.0) th/mm3 RBC 3.05 L (4.00-5.30) mil/mm3 Hgb 11.2 L (11.6-15.3) gm/dL Hct 32.1 L (35.0-46.0) % Plt Count 139 L (150-450) th/mm3 Neut # (Auto) 9.6 H (1.8-7.7) th/mm3 Lymph # (Auto) 1.2 (1.0-4.8) th/mm3 Stanton # (Auto) 0.6 (0.0-0.9) th/mm3 Eos # (Auto) 0.0 (0.0-0.4) th/mm3 Baso # (Auto) 0.0 (0.0-0.2) th/mm3 Comprehensive Metabolic Panel 02/05/18 Range/Units 02:45 Sodium 150 H (136-145) meq/L Potassium 3.4 L (3.5-5.1) meq/L Chloride 110 H (98-107) meq/L Carbon Dioxide 33.7 H (21.0-32.0) meq/L BUN 21 H (7-18) mg/dL Creatinine 0.44 L (0.50-1.00) mg/dL Calcium 7.1 L* (8.5-10.1) mg/dL Albumin 2.4 L (3.4-5.0) g/dL Intake and Output 02/05/18 02/06/18 02/06/18 22:59 06:59 14:59 Intake Total 1082.5 / 1082.5 300 / 300 Output Total 3050 / 3050 2100 / 2100 Balance -1967.5 / -1967.5 -1800 / -1800 Intake: IV 362.5 / 362.5 Maxipime Inj 2,000 MG In NS Inj 100 / 100 100 ML @ 200 mls/hr IV.SIG Q8H [facility] Rx#:[id number] Vancomycin Inj 1,250 MG In NS 262.5 / 262.5 Inj 250 ML @ 250 mls/hr IV.SIG Q12H [facility] Rx#:[id number] Oral 720 / 720 100 / 100 Other 200 / 200 Output: Urine 2100 / 2100 Urine Amount (Catheter) 3050 / 3050 Indwelling Urethral Catheter 3050 / 3050 Other: Date of Last Bowel Movement 02/03/18 02/03/18 # Bowel Movements 0 Weight 64 kg - Imaging and Cardiology Imaging: Impressions Chest X-Ray 02/04/18 09:47 CONCLUSION: No significant interval change compared to the prior examination. Chest X-Ray 02/05/18 04:00 CONCLUSION: No significant change patchy infiltrates of both lungs, right more so than left. Interim extubation and nasogastric tube removal. Assessment and Plan - Assessment (1) Cardiomyopathy Code(s): I42.9 - Cardiomyopathy, unspecified Status: Acute Plan: EF 40-45% by echo. Seems to have wall motion abnormalities most pronounced in distal septum, mid to distal inferior wall. RECOMMEND Lexiscan nuclear stress test once out of the ICU and respiratory status stable, continue beta donna/MARGI-I/ASA/IV furosemide. Will f/u periodically. - Plan Code Status: FULL Discussed Condition With: PATIENT (1) Cardiomyopathy Qualifiers: Cardiomyopathy type: unspecified Qualified Code(s): I42.9 - Cardiomyopathy, unspecified
[2018-02-06] MEDS: Sodium Chloride 0.9% 2 ML Flush BID IV.FLUSH SCH ×2 (09:16→21:02)
[2018-02-06] MEDS: Famotidine 20 MG Tablet PO SCH ×2 (09:16→21:03)
[2018-02-06] MEDS: Chlorhexidine 0.12% Oral Kit 15 ML UDC OROPHARYNG SCH ×2 (09:16→21:00)
[2018-02-06] MEDS: Carvedilol 12.5 MG Tablet PO SCH ×2 (09:16→21:45)
[2018-02-06 09:42] LABS: Hematocrit 35.6 % (35.0-46.0); Mean Corpuscular HGB Conc 33.8 % (32.0-36.0); Mean Corpuscular Hemoglobin 35.7 pg (27.0-34.0); Mean Corpuscular Volume 105.6 fL (80.0-100.0); Mean Platelet Volume 10.5 fL (7.0-11.0); Platelet Count 173 th/mm3 (150-450); Red Blood Count 3.37 mil/mm3 (4.00-5.30); Red Cell Distribution Width 18.2 % (11.6-17.2); White Blood Count 17.5 th/mm3 (4.0-11.0)
[2018-02-06 09:57] LABS: Anion Gap 13 meq/L (5-15); Blood Urea Nitrogen 18 mg/dL (7-18); Calcium 7.6 mg/dL (8.5-10.1); Carbon Dioxide 18.4 meq/L (21.0-32.0); Chloride 109 meq/L (98-107); Glomerular Filtration Rate Greater Than 89 mL/min (>89); Glucose,Random 114 mg/dL (74-106); Magnesium 1.6 mg/dL (1.5-2.5); Phosphorus 2.4 mg/dL (2.5-4.9); Potassium 3.2 meq/L (3.5-5.1); Sodium 140 meq/L (136-145)
--- NOTE | 2018-02-06 10:42 | P.PNCC ---
Subjective Subjective Remarks/Hospital Course: This is a 32-year-old female that presented to the emergency department last evening. Per report reviewed the patient had complaints myalgias, nausea, vomiting diarrhea in conjunction fever and chills per review of the records the patient went to an urgent care center on and was diagnosed with the flu and subsequently sent home the patient stated her symptoms worsen so she presented to [facility] ED on 2017. Upon presentation imaging and laboratory studies were performed that initially revealed a significant leukocytosis with a WBC count of 20.8, hypokalemia and a chest x-ray revealing extensive bilateral airspace disease. The patient was bolused with IV fluids, and received prophylactic antibiotics, blood cultures were obtained. The patient was admitted to ICU at [place] and ICU was consulted on 01/28/2018 at 2059 ,and was placed on BiPAP overnight with worsening symptomatology. Respiratory rate throughout the night was noted to be in the high 30s-50, with O2 saturation 87-91 % throughout the night. Upon my arrival this am, I examined the patient at 0615, and upon my evaluation this a.m. was noted to be extremely dyspneic, unable to speak secondary to extreme dyspnea, respiratory rate 48-50, and O2 sat 86-87%. A stat ABG was obtained PaO2 was noted to be 84, on 100%, and the patient kept stating she could not breathe. The patient was emergently intubated x1 attempt. Visually O2 saturation remained in the mid 80s-88 % on PEEP 12, FIO2 of 100%, with a slightly extended I- time. A stat ABG was performed PaO2 was noted to be 72, ventilator adjustments continued to optimize oxygenation. Emergent A-line was placed for frequent blood sampling, to evaluate oxygenation. The patient was noted to be in a sinus tach the patient was bolused with additional IV fluids 2 L and placed on sedation, to include, Versed , propofol, fentanyl infusions. The patient's past medical history is significant for hepatitis C, borderline personality disorder Funes acted 2017 secondary to chronic anxiety per records reviewed the patient takes Klonopin. 01/30: The patient's oxygenation moved by midday 01/29, and the patient was transferred via ambulance to [facility]. On her arrival the patient had a CVL placed, echo performed peer and the patient was placed on prone bed for prone positioning. Upon prone positioning, the patient's O2 saturation improved. FiO2 currently is at 60% when patient is in prone position with O2 sat of 100%. The patient remains deeply sedated with neuromuscular blockade Nemex for prone positioning. Urine output is equivalent to 1 cc/kg/h the patient was noted to have a metabolic acidosis this a.m., 50 mEq of sodium bicarbonate was given, IV fluids changed to one half normal saline at 100 cc/ hour. Noted lactic acidemia now resolved. One bottle blood culture showed gram -positive cocci. Discussed with patient's mother and permission granted to obtain HIV labs, deemed medically necessary per ID Dr. Carballo. 01/31: Decreasing FiO2 requirements at this time. Chest x-ray suggestive of interstitial edema, Lasix 40 mg x1 dose provided. IV fluids decreased to 42 cc/ hr . Secondary to prone positioning StatLock removed and central line sutured in place, to prevent possible dislodgment and prone position. Cultures revealed sputum MRSA, and blood gram-positive cocci. HIV testing labs negative. 02/01: Noted improvement clinically and respiratory status O2 requirements have been decreased 0.45% and a PEEP of 8. Patient noted to have a positive fluid balance was diuresed yesterday, chest x-ray shows persistent pulmonary edema Lasix dosing increased to twice daily IV fluids have now been discontinued. Noted thrombocytopenia, heparin platelet antibody has been ordered. Colitis currently being replaced. 02/02: fio2 continues to improve. supinated today and remains stable x 8 hrs. can likely transition off RotaProne bed today. continues to be very volume overloaded, although adequate start to diuresis yesterday. 02/03: The patient was removed from rota prone bread at 1800 yesterday. The patient continues to improve oxygenation. Versed continually being weaned down in anticipation for CPAP trials. Dietary consult has been initiated for tube feeds. 02/04: Afebrile. the patient remained on CPAP trials throughout yesterday afternoon, placed back on a rate last evening. CPAP trials have been reinitiated this a.m. SBT parameters currently being obtain ABG within normal limits plan for possible extubation today 02/05 Tolerated extubation yesterday and remains on 5 L nasal cannula. Has passed bedside swallow evaluation and is requesting to advance diet. Temp max 100.5. Sputum culture 02/03 pending. On cefepime, azithro and vanc per ID. Has been diuresed aggressively. Creatinine normal, alkalosis. Remove invasive lines and Garcia today. Out of bed Subjective: 02/06 Alkalosis has given way to bicarb of 18.4 following diamox. She is on 6 L NC but is tachypneic, more dyspneic today. +thick sputum production and respiratory muscle weakness are contributing. Guafenesin/nebs/EZPAP. Bipap to support now. May require reintubation, but trying to avoid. Objective Vital Signs / I&O: Vital Signs 02/05/18 11:00 02/05/18 11:14 02/05/18 12:00 Temperature 99.5 F Pulse Rate 111 H 114 H 112 H Respiratory Rate 38 H 30 H 31 H Blood Pressure 146/85 H 141/90 H 136/86 Pulse Oximetry 89 L 90 L 93 L 02/05/18 13:00 02/05/18 14:00 02/05/18 15:00 Temperature Pulse Rate 132 H 103 H 98 H Respiratory Rate 41 H 40 H 37 H Blood Pressure 143/91 H 137/86 143/94 H Pulse Oximetry 89 L 90 L 93 L 02/05/18 15:36 02/05/18 16:00 02/05/18 16:54 Temperature 99.0 F Pulse Rate 93 H 83 92 H Respiratory Rate 24 23 21 Blood Pressure 118/75 Pulse Oximetry 96 97 02/05/18 17:00 02/05/18 18:00 02/05/18 19:00 Temperature Pulse Rate 90 91 H 96 H Respiratory Rate 21 20 19 Blood Pressure 125/75 114/64 119/72 Pulse Oximetry 96 96 94 L 02/05/18 20:00 02/05/18 20:42 02/05/18 20:44 Temperature Pulse Rate 84 101 H Respiratory Rate 25 H 21 Blood Pressure 124/74 Pulse Oximetry 89 L 99 02/05/18 21:00 02/05/18 22:00 02/05/18 22:01 Temperature Pulse Rate 99 H 95 H 96 H Respiratory Rate 27 H 26 H 26 H Blood Pressure 144/75 H 133/86 Pulse Oximetry 95 92 L 02/05/18 22:02 02/05/18 23:00 02/06/18 00:00 Temperature Pulse Rate 101 H 81 Respiratory Rate 36 H 34 H Blood Pressure 139/83 148/87 H Pulse Oximetry 93 L 93 L 95 02/06/18 00:12 02/06/18 00:13 02/06/18 01:00 Temperature Pulse Rate 86 93 H Respiratory Rate 25 H 32 H Blood Pressure 136/90 Pulse Oximetry 93 L 93 L 92 L 02/06/18 02:00 02/06/18 04:00 02/06/18 05:09 Temperature Pulse Rate 81 89 89 Respiratory Rate 26 H Blood Pressure 148/87 H Pulse Oximetry 02/06/18 05:10 02/06/18 06:00 02/06/18 09:00 Temperature Pulse Rate 89 97 H Respiratory Rate 24 Blood Pressure Pulse Oximetry 95 Intake & Output 02/05/18 02/06/18 02/06/18 18:59 06:59 18:59 Intake Total 1222.5 / 1222.5 662.5 / 662.5 Output Total 3050 / 3050 2100 / 2100 Balance -1827.5 / -1827.5 -1437.5 / -1437.5 Weight 64 kg Intake: IV 502.5 / 502.5 362.5 / 362.5 Precedex Inj 200 MCG In NS Inj 40 / 40 48 ML @ 0.2 MCG/KG/HR 3.9 mls/ hr IV.CONT TITRATE PRN Rx#: [id number] Maxipime Inj 2,000 MG In NS Inj 200 / 200 100 / 100 100 ML @ 200 mls/hr IV.SIG Q8H [facility] Rx#:[id number] Vancomycin Inj 1,250 MG In NS 262.5 / 262.5 262.5 / 262.5 Inj 250 ML @ 250 mls/hr IV.SIG Q12H [facility] Rx#:[id number] Oral 720 / 720 100 / 100 Other 200 / 200 Output: Urine 2100 / 2100 Urine Amount (Catheter) 3050 / 3050 Indwelling Urethral Catheter 3050 / 3050 Other: Date of Last Bowel Movement 02/03/18 02/03/18 # Bowel Movements 0 Result Diagrams: 02/06/18 08:35 02/06/18 08:35 Objective Remarks: GENERAL: Young female, sitting up in bed, alert and conversant. Tachypneic. SKIN: Warm and dry. HEAD: Atraumatic. Normocephalic. EYES: Pupils equal and round. No scleral icterus. No injection or drainage. ENT: No nasal bleeding or discharge. Mucous membranes pink and moist. NECK: Trachea midline. No JVD. CARDIOVASCULAR: Normal rate, regular rhythm. sinus on the monitor. RESPIRATORY: No accessory muscle use. Rales in right base. Scattered rhonchi. No wheeze. GASTROINTESTINAL: Abdomen soft, non-tender, nondistended. Bowel sounds present. MUSCULOSKELETAL: Extremities without clubbing, cyanosis, trace edema. No obvious deformities. Bruising noted on right forehead left great toe 2/2 rota prone bed positioning. Also skin breakdown medial lower legs bilaterally. NEUROLOGICAL: Awake, oriented to person, place, circumstance. She does move all extremities to command but seems generally weak 4+ out of 5 Procedures: 01/31: Sutured right IJ, StatLock removed. Assessment and Plan - Problem List (1) Acute respiratory failure with hypoxia and hypercarbia Code(s): J96.01 - Acute respiratory failure with hypoxia; J96.02 - Acute respiratory failure with hypercapnia Status: Resolved (2) Hepatitis Code(s): K75.9 - Inflammatory liver disease, unspecified Status: Acute (3) Bilateral pneumonia Code(s): J18.9 - Pneumonia, unspecified organism Status: Acute (4) Sepsis Code(s): A41.9 - Sepsis, unspecified organism Status: Acute (5) Hypoxia Code(s): R09.02 - Hypoxemia Status: Acute (6) Leukocytosis Code(s): D72.829 - Elevated white blood cell count, unspecified Status: Acute (7) Hyperglycemia Code(s): R73.9 - Hyperglycemia, unspecified Status: Acute (8) Thrombocytopenia Code(s): D69.6 - Thrombocytopenia, unspecified Status: Acute - Assessment and Plan Plan: Plan by systems: Neurologic: Anxiety disorder Borderline personality disorder Substance use disordercocaine abuse Acetaminophen 650 mg every 6 hours as needed for temperature greater than 101.0 01/28 urine drug screen-positive for cocaine Deconditioning OT consult. Daily PT. Out of bed to chair. Respiratory: Acute hypoxemic and hypercarbic respiratory failure Bilateral pneumonia Tobacco use disorder ARDS bilateral pulmonary edema- severe Duoneb q4. Add EZPAP. Resp muscle weakness contributing, supporting resp effort with BIPAP. Guafenesin 600 bid. methylprednisolone 125mg x 1 dose , Solumedrol weaned to 40 mg IV q12. 01/28 Sputum culture- NGTD Legionella, pneumococcal urine antigens-neg Influenza antigens A/Bneg. But reportedly had outpatient + flu swab, so suspect influenza. 01/29-intubated 7.5 ETT 22 at the [facility], Extubated 02/04 Dr. Syed following. F/U Chest x-ray -stable. Continue Lasix to 40 mg iv q8 hours. Cardiovascular: Sinus tachycardia- resolved Maintain MAP > 65mmHg 01/28 Echo EF 40-45%, moderately dilated left ventricle, LAD infarct vs. Taktsubo cardiomyopathy, no vegetations noted PAP 42 Dr. Mendoza evaluated, plan for stress when stabilized and out of ICU. Renal/FEN: Remove Garcia 02/05. KCL 20 mEq po bid while on Lasix. GI: Hepatitis C Transaminitis Metabolic alkalosis resolved. Hypernatremia - Related to diuresis. Patient should self-correct now that diet advanced. Hypokalemia Regular diet. Add ensure tid. Monitor CMP Electrolyte replacement per ICU protocol Heme/ID: MRSA Pneumonia Severe sepsis Leukocytosis-resolved ARDS Hepatitis C AB positive - RNA viral load pending. Thrombocytopenia 01/28-Legionella, mycoplasma, pneumococcal antigens-negative 01/28 sputum culture-negative ID consulted-Dr. Carballo following. On cefepime, vancomycin, azithromycin per ID. 01/28 Blood MRSA. Subsequent Blood culture 02/02 NGTD. sputum-MRSA HIV- negative, CD4 185 F/U HCV PCR 02/02 Heparin platelet antibody-negative Endocrine: Hyperglycemia of critical illness Glucose monitoring per ICU protocol 4 hours-post regimen -- SSI Prophylaxis: GI Prophylaxis famotidine DVT Prophylaxis -- SCDs Lines: PIV. D/c R IJ CVL (01/29-02/05 , Right rad arterial line d/c'd 02.05. Arterial line left radial (dc'd 02/01), Level 3 follow-up (3) Bilateral pneumonia Qualifiers: Pneumonia type: due to unspecified organism Lung location: unspecified part of lung Qualified Code(s): J18.9 - Pneumonia, unspecified organism (4) Sepsis Qualifiers: Sepsis type: sepsis due to unspecified organism Qualified Code(s): A41.9 - Sepsis, unspecified organism (6) Leukocytosis Qualifiers: Leukocytosis type: unspecified Qualified Code(s): D72.829 - Elevated white blood cell count, unspecified
[2018-02-06] MEDS: Potassium Chlor 20 mEq Premix 20 MEQ/100 ML PIGGYBACK IV.SIG PRN ×4 (10:56→17:44)
--- NOTE | 2018-02-06 11:09 | P.PN ---
Subjective Interval history: Alert and is tachypneic.On 6 L o2. Wants ' more air'. good output with lasix. Physical Exam Vital signs: Vital Signs 02/05/18 11:14 02/05/18 12:00 02/05/18 13:00 Temperature 99.5 F Pulse Rate 114 H 112 H 132 H Respiratory Rate 30 H 31 H 41 H Blood Pressure 141/90 H 136/86 143/91 H Pulse Oximetry 90 L 93 L 89 L 02/05/18 14:00 02/05/18 15:00 02/05/18 15:36 Temperature Pulse Rate 103 H 98 H 93 H Respiratory Rate 40 H 37 H 24 Blood Pressure 137/86 143/94 H Pulse Oximetry 90 L 93 L 02/05/18 16:00 02/05/18 16:54 02/05/18 17:00 Temperature 99.0 F Pulse Rate 83 92 H 90 Respiratory Rate 23 21 21 Blood Pressure 118/75 125/75 Pulse Oximetry 96 97 96 02/05/18 18:00 02/05/18 19:00 02/05/18 20:00 Temperature Pulse Rate 91 H 96 H 84 Respiratory Rate 20 19 25 H Blood Pressure 114/64 119/72 124/74 Pulse Oximetry 96 94 L 89 L 02/05/18 20:42 02/05/18 20:44 02/05/18 21:00 Temperature Pulse Rate 101 H 99 H Respiratory Rate 21 27 H Blood Pressure 144/75 H Pulse Oximetry 99 95 02/05/18 22:00 02/05/18 22:01 02/05/18 22:02 Temperature Pulse Rate 95 H 96 H Respiratory Rate 26 H 26 H Blood Pressure 133/86 Pulse Oximetry 92 L 93 L 02/05/18 23:00 02/06/18 00:00 02/06/18 00:12 Temperature Pulse Rate 101 H 81 86 Respiratory Rate 36 H 34 H 25 H Blood Pressure 139/83 148/87 H Pulse Oximetry 93 L 95 93 L 02/06/18 00:13 02/06/18 01:00 02/06/18 02:00 Temperature Pulse Rate 93 H 81 Respiratory Rate 32 H Blood Pressure 136/90 Pulse Oximetry 93 L 92 L 02/06/18 04:00 02/06/18 05:09 02/06/18 05:10 Temperature Pulse Rate 89 89 Respiratory Rate 26 H Blood Pressure 148/87 H Pulse Oximetry 95 02/06/18 06:00 02/06/18 09:00 Temperature Pulse Rate 89 97 H Respiratory Rate 24 Blood Pressure Pulse Oximetry Intake & Output 02/05/18 02/06/18 02/06/18 18:59 06:59 18:59 Intake Total 1222.5 / 1222.5 662.5 / 662.5 Output Total 3050 / 3050 2100 / 2100 Balance -1827.5 / -1827.5 -1437.5 / -1437.5 Weight 64 kg Intake: IV 502.5 / 502.5 362.5 / 362.5 Precedex Inj 200 MCG In NS Inj 40 / 40 48 ML @ 0.2 MCG/KG/HR 3.9 mls/ hr IV.CONT TITRATE PRN Rx#: [id number] Maxipime Inj 2,000 MG In NS Inj 200 / 200 100 / 100 100 ML @ 200 mls/hr IV.SIG Q8H [facility] Rx#:[id number] Vancomycin Inj 1,250 MG In NS 262.5 / 262.5 262.5 / 262.5 Inj 250 ML @ 250 mls/hr IV.SIG Q12H [facility] Rx#:[id number] Oral 720 / 720 100 / 100 Other 200 / 200 Output: Urine 2100 / 2100 Urine Amount (Catheter) 3050 / 3050 Indwelling Urethral Catheter 3050 / 3050 Other: Date of Last Bowel Movement 02/03/18 02/03/18 # Bowel Movements 0 GENERAL: young lady anxious and tachypneic SKIN: Warm and dry. HEAD: Normocephalic. EYES: No scleral icterus. No injection or drainage. NECK: Supple, trachea midline. No JVD or lymphadenopathy. CARDIOVASCULAR: Regular rate and rhythm without murmurs. RESPIRATORY: Breath sounds equal bilaterally. Bilateral wheezes and crackles. Has accessory muscle use. GASTROINTESTINAL: Abdomen soft, non-tender, nondistended. MUSCULOSKELETAL: No cyanosis, but has edema. BACK: Nontender without obvious deformity. No CVA tenderness. - Urinary Catheter Management Indwelling Urethral Catheter Cath placed during this visit: yes Reason for continuing: Other continuation reason Insertion date: 01/29/18 Insertion time: 07:15 Results - Labs CBC & Chem 7: 02/06/18 08:35 02/06/18 08:35 Laboratory Results - last 24 hr 01/31/18 01/31/18 02/05/18 10:00 13:42 21:50 WBC RBC Hgb Hct MCV MCH MCHC RDW Plt Count MPV Sodium Potassium Chloride Carbon Dioxide Anion Gap BUN Creatinine Estimated GFR POC Glucose 134 H Random Glucose Calcium Phosphorus Magnesium HCV RNA (PCR) IUs/ml 685 H HCV RNA PCR log IUs/ml 2.84 H HIV-1 DNA (PCR) Not detected 02/06/18 02/06/18 02/06/18 06:05 08:35 08:35 WBC 17.5 H RBC 3.37 L Hgb 12.0 Hct 35.6 MCV 105.6 H MCH 35.7 H MCHC 33.8 RDW 18.2 H Plt Count 173 MPV 10.5 Sodium 140 D Potassium 3.2 L Chloride 109 H Carbon Dioxide 18.4 L D Anion Gap 13 BUN 18 Creatinine 0.36 L Estimated GFR Greater than 89 POC Glucose 140 H Random Glucose 114 H Calcium 7.6 L Phosphorus 2.4 L Magnesium 1.6 HCV RNA (PCR) IUs/ml HCV RNA PCR log IUs/ml HIV-1 DNA (PCR) Microbiology 02/02/18 03:40 Blood - Peripheral Aerobic Blood Culture - Preliminary No growth in 4 days 02/02/18 03:40 Blood - Peripheral Anaerobic Blood Culture - Preliminary No growth in 4 days 02/02/18 03:05 Blood - Peripheral Aerobic Blood Culture - Preliminary No growth in 4 days 02/02/18 03:05 Blood - Peripheral Anaerobic Blood Culture - Preliminary No growth in 4 days 02/03/18 17:45 Sputum - Endotracheal Gram Stain - Final 02/03/18 17:45 Sputum - Endotracheal Sputum Culture - Final S. aureus MRSA Assessment and Plan - Assessment (1) Bilateral pneumonia Code(s): J18.9 - Pneumonia, unspecified organism Status: Acute (2) Sepsis Code(s): A41.9 - Sepsis, unspecified organism Status: Acute (3) Hypoxia Code(s): R09.02 - Hypoxemia Status: Acute (4) Leukocytosis Code(s): D72.829 - Elevated white blood cell count, unspecified Status: Acute (5) Acute respiratory failure with hypoxia and hypercarbia Code(s): J96.01 - Acute respiratory failure with hypoxia; J96.02 - Acute respiratory failure with hypercapnia Status: Resolved (6) Hepatitis Code(s): K75.9 - Inflammatory liver disease, unspecified Status: Acute (7) Hyperglycemia Code(s): R73.9 - Hyperglycemia, unspecified Status: Acute (8) Thrombocytopenia Code(s): D69.6 - Thrombocytopenia, unspecified Status: Acute - Plan 1. Resp Insufficiency s/p Extubation 02/04 2. ARDS 3. MRSA pneumonia. 4. Staphylococcus aureus bacteremia. 5. Hepatitis C. 6. Anemia. 7. Thrombocytopenia. 8. Hypernatremia. Plan 1.Wean oxygen and maintain sats >92%. 2.Bronchodilators, IS 3.Solu-Medrol 40mg IV Q8h 4.BIPAP 12 CM FIo2 40 % today and HS 5.CXR BMP ,CBC in am 6.Abx per ID -vancomycin, Cefepime and azithromycin. 01/28 BC: Staph Aureus. Sputum cx: MRSA 01/29. 7. Continue lasix 40 Mg IV Q12 H (1) Bilateral pneumonia Qualifiers: Pneumonia type: due to unspecified organism Lung location: unspecified part of lung Qualified Code(s): J18.9 - Pneumonia, unspecified organism (2) Sepsis Qualifiers: Sepsis type: sepsis due to unspecified organism Qualified Code(s): A41.9 - Sepsis, unspecified organism (4) Leukocytosis Qualifiers: Leukocytosis type: unspecified Qualified Code(s): D72.829 - Elevated white blood cell count, unspecified
--- NOTE | 2018-02-06 12:12 | XR ---
EXAM DATE: 02/06/2018 11:37 AM EST AGE/SEX: 32 years / Female INDICATIONS: Respiratory disease. CLINICAL DATA: This is the patient's subsequent encounter. Patient reports that signs and symptoms h ave been present for 2 weeks and indicates a pain score of 0/10. MEDICAL/SURGICAL HISTORY: . Acute respiratory failure with hypoxia and hypercarbia. Hepatitis C . Pneumonia. Sepsis. Leukocytosis. Hyperglycemia. Thrombocytopenia. Anxiety. Substance use. Borderlin e personality disorder. ARDS. Smoker. Transaminitis. None. COMPARISON: [facility] – [place], CHEST 1V SINGLE AP, 02/05/2018. . FINDINGS: Increasing patchy airspace disease is evident throughout the mid lungs and bases. Heart and mediastinal structures are stable. Right jugular line has been removed. CONCLUSION: Increasing airspace disease in both lungs predominantly within the midlungs and bases. Electronically signed by: Walt Maurice MD Board Certified Radiologist 02/06/2018 12:10 PM EST
--- NOTE | 2018-02-06 14:02 | P.PNID ---
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 The patient has been evaluated for psychiatric adjustment disorder. Allergies/Adverse Reactions: Allergies Sulfa (Sulfonamide Antibiotics) Allergy (Intermediate, Verified 05/14/17 22:25) PT STATES INCREASES HER TEMP Objective Vital Signs 02/05/18 14:00 02/05/18 15:00 02/05/18 15:36 Temperature Pulse Rate 103 H 98 H 93 H Respiratory Rate 40 H 37 H 24 Blood Pressure 137/86 143/94 H Pulse Oximetry 90 L 93 L 02/05/18 16:00 02/05/18 16:54 02/05/18 17:00 Temperature 99.0 F Pulse Rate 83 92 H 90 Respiratory Rate 23 21 21 Blood Pressure 118/75 125/75 Pulse Oximetry 96 97 96 02/05/18 18:00 02/05/18 19:00 02/05/18 20:00 Temperature Pulse Rate 91 H 96 H 84 Respiratory Rate 20 19 25 H Blood Pressure 114/64 119/72 124/74 Pulse Oximetry 96 94 L 89 L 02/05/18 20:42 02/05/18 20:44 02/05/18 21:00 Temperature Pulse Rate 101 H 99 H Respiratory Rate 21 27 H Blood Pressure 144/75 H Pulse Oximetry 99 95 02/05/18 22:00 02/05/18 22:01 02/05/18 22:02 Temperature Pulse Rate 95 H 96 H Respiratory Rate 26 H 26 H Blood Pressure 133/86 Pulse Oximetry 92 L 93 L 02/05/18 23:00 02/06/18 00:00 02/06/18 00:12 Temperature Pulse Rate 101 H 81 86 Respiratory Rate 36 H 34 H 25 H Blood Pressure 139/83 148/87 H Pulse Oximetry 93 L 95 93 L 02/06/18 00:13 02/06/18 01:00 02/06/18 02:00 Temperature Pulse Rate 93 H 81 Respiratory Rate 32 H Blood Pressure 136/90 Pulse Oximetry 93 L 92 L 02/06/18 04:00 02/06/18 05:09 02/06/18 05:10 Temperature Pulse Rate 89 89 Respiratory Rate 26 H Blood Pressure 148/87 H Pulse Oximetry 95 02/06/18 06:00 02/06/18 09:00 02/06/18 11:18 Temperature Pulse Rate 89 97 H Respiratory Rate 24 Blood Pressure Pulse Oximetry 95 02/06/18 12:17 Temperature Pulse Rate 102 H Respiratory Rate 28 H Blood Pressure Pulse Oximetry Intake & Output 02/05/18 02/06/18 02/06/18 18:59 06:59 18:59 Intake Total 1222.5 / 1222.5 662.5 / 662.5 100 / 100 Output Total 305 / 0 2099 / 2099 Balance -1827.5 / -1827.5 -1437.5 / -1437.5 100 / 100 Weight 64 kg Intake: IV 502.5 / 502.5 362.5 / 362.5 100 / 100 Precedex Inj 200 MCG In NS Inj 40 / 40 48 ML @ 0.2 MCG/KG/HR 3.9 mls/ hr IV.CONT TITRATE PRN Rx#: [id number] Maxipime Inj 2,000 MG In NS Inj 200 / 200 100 / 100 100 ML @ 200 mls/hr IV.SIG Q8H [facility] Rx#:[id number] KCl 20 mEq Premix Inj 20 meq In 100 / 100 100 ml @ 50 mls/hr IV.SIG Q2H PRN Rx#:[id number] Vancomycin Inj 1,250 MG In NS 262.5 / 262.5 262.5 / 262.5 Inj 250 ML @ 250 mls/hr IV.SIG Q12H [facility] Rx#:[id number] Oral 720 / 720 100 / 100 Other 200 / 200 Output: Urine 2099 Urine Amount (Catheter) 3049 / 305 Indwelling Urethral Catheter 3049 / 3049 Other: Date of Last Bowel Movement 02/03/18 02/03/18 # Bowel Movements 0 02/02/18 03:40 Blood - Peripheral Aerobic Blood Culture - Preliminary No growth in 4 days 02/02/18 03:40 Blood - Peripheral Anaerobic Blood Culture - Preliminary No growth in 4 days 02/02/18 03:05 Blood - Peripheral Aerobic Blood Culture - Preliminary No growth in 4 days 02/02/18 03:05 Blood - Peripheral Anaerobic Blood Culture - Preliminary No growth in 4 days 02/03/18 17:45 Sputum - Endotracheal Gram Stain - Final 02/03/18 17:45 Sputum - Endotracheal Sputum Culture - Final S. aureus MRSA Lab - Hematology Results 02/05/18 02/06/18 08:28 08:35 WBC 11.3 H 17.5 H RBC 3.05 L 3.37 L Hgb 11.2 L 12.0 Hct 32.1 L 35.6 MCV 105.0 H 105.6 H MCH 36.5 H 35.7 H MCHC 34.8 33.8 RDW 18.3 H 18.2 H Plt Count 139 L 173 MPV 10.2 10.5 Neut % (Auto) 84.4 H Lymph % (Auto) 10.3 [place] % (Auto) 5.1 Eos % (Auto) 0.1 Baso % (Auto) 0.1 Neut # (Auto) 9.6 H Lymph # (Auto) 1.2 [place] # (Auto) 0.6 Eos # (Auto) 0.0 Baso # (Auto) 0.0 WBC Differential . Differential Comment Auto diff final Lab - Chemistry Results 02/05/18 02/05/18 02/05/18 00:29 00:30 02:45 Sodium 150 H Potassium 3.4 L Chloride 110 H Carbon Dioxide 33.7 H Anion Gap 6 BUN 21 H Creatinine 0.44 L Estimated GFR Greater than 89 POC Glucose 123 H Random Glucose 158 H Calcium 7.1 L* Calcium Adj for Albumin 8.4 L Phosphorus 1.6 L 2.3 L Magnesium 1.6 Troponin I Albumin 2.4 L 02/05/18 02/05/18 02/05/18 03:18 08:45 09:58 Sodium Potassium Chloride Carbon Dioxide Anion Gap BUN Creatinine Estimated GFR POC Glucose 142 H 155 H Random Glucose Calcium Calcium Adj for Albumin Phosphorus Magnesium Troponin I 0.07 H Albumin 02/05/18 02/06/18 02/06/18 21:50 06:05 08:35 Sodium 140 D Potassium 3.2 L Chloride 109 H Carbon Dioxide 18.4 L D Anion Gap 13 BUN 18 Creatinine 0.36 L Estimated GFR Greater than 89 POC Glucose 134 H 140 H Random Glucose 114 H Calcium 7.6 L Calcium Adj for Albumin Phosphorus 2.4 L Magnesium 1.6 Troponin I Albumin Imaging: ITS Impressions Chest CT 01/28/18 18:20 CONCLUSION: Extensive bilateral airspace disease Abdomen X-Ray 02/03/18 00:37 CONCLUSION: 1. OG tube tip in the distal stomach near the duodenal bulb. Chest X-Ray 02/06/18 11:02 CONCLUSION: Increasing airspace disease in both lungs predominantly within the midlungs and bases. Physical Exam: GENERAL: On BIPAP HEENT: Extraocular movements grossly intact. Pupils reactive to light. No icterus. oral mucosae moist NECK: No adenopathy or swelling. LUNGS: Diffuse rhonchi, more so on the L HEART: Normal S1 and S2, without audible murmurs, rubs, or gallops. ABDOMEN: Decreased bowel sounds. Soft, nontender. No palpable mass. EXTREMITIES: No clubbing. No cyanosis, trace edema.. SKIN: No rash. warm and moist. NEUROLOGIC: quite lethargic, difficult to aroused PSYCHIATRIC: unable to assess Lines without evidence of infection. Assessment and Plan - Plan IMPRESSION: 1. Bilateral pneumonia. MRSA. 2. Bacteremia. Staph aureus. MSSA. 3. Hypoxia. Improved 4. Acute respiratory failure. Extubated - now again worsening resp status, on NIVM 5. Elevated liver function tests. Improved. 6. Leukocytosis. Again, 17 K 7. ALLERGY TO SULFA. Unstyable today from resp standpoint RECOMMENDATIONS: 1. dc cefepime. Start zosyn 2. Stop vancomycin. 3. start linezolid 4. sputum clx 5. Monitor clinical status. resp panel maureen reddy RN
[2018-02-06] MEDS: guaiFENesin 600 MG ER Tablet PO SCH ×2 (14:26→21:02)
[2018-02-06] MEDS: Piperacil/Tazo 4.5 GM Premix 4.5 GM/100 ML BAG IV.SIG SCH ×2 (16:58→21:04)
[2018-02-06] MEDS: Potassium Phosphate 500 MG Soluble Tablet PO PRN ×2 (17:36→22:27)
[2018-02-06] MEDS: Enoxaparin Inj 40 MG/0.4 ML Syringe SQ SCH (21:04)
[2018-02-07] MEDS: Oral Hygiene Kit OROPHARYNG SCH ×4 (00:01→15:35)
[2018-02-07 03:23] LABS: Hematocrit 41.2 % (35.0-46.0); Hemoglobin 14.1 gm/dL (11.6-15.3); Mean Corpuscular HGB Conc 34.3 % (32.0-36.0); Mean Corpuscular Hemoglobin 35.6 pg (27.0-34.0); Mean Corpuscular Volume 103.7 fL (80.0-100.0); Mean Platelet Volume 10.6 fL (7.0-11.0); Platelet Count 241 th/mm3 (150-450); Red Blood Count 3.97 mil/mm3 (4.00-5.30); Red Cell Distribution Width 18.5 % (11.6-17.2); White Blood Count 19.3 th/mm3 (4.0-11.0)
[2018-02-07 03:54] LABS: Anion Gap 10 meq/L (5-15); Blood Urea Nitrogen 20 mg/dL (7-18); Calcium 8.3 mg/dL (8.5-10.1); Carbon Dioxide 26.1 meq/L (21.0-32.0); Chloride 103 meq/L (98-107); Glomerular Filtration Rate Greater Than 89 mL/min (>89); Glucose,Random 152 mg/dL (74-106); Magnesium 1.6 mg/dL (1.5-2.5); Phosphorus 3.3 mg/dL (2.5-4.9); Potassium 3.6 meq/L (3.5-5.1); Sodium 139 meq/L (136-145)
[2018-02-07] MEDS: Insulin NovoLIN Regular Correctional Sugar Inj SQ SCH ×4 (04:20→17:38)
[2018-02-07] MEDS: Piperacil/Tazo 4.5 GM Premix 4.5 GM/100 ML BAG IV.SIG SCH ×4 (04:22→21:36)
[2018-02-07] MEDS: Magnesium Oxide 400 MG Tablet PO PRN ×2 (05:34→21:37)
[2018-02-07] MEDS ORDERED: Pharmacy Ordered Lab Info OTHER ONE (05:45)
[2018-02-07] MEDS: guaiFENesin 600 MG ER Tablet PO SCH ×2 (09:19→21:36)
[2018-02-07] MEDS: Carvedilol 12.5 MG Tablet PO SCH ×2 (09:20→21:35)
[2018-02-07] MEDS: Chlorhexidine 0.12% Oral Kit 15 ML UDC OROPHARYNG SCH ×2 (09:20→21:24)
[2018-02-07] MEDS: Famotidine 20 MG Tablet PO SCH ×2 (09:20→21:36)
[2018-02-07] MEDS: Sodium Chloride 0.9% 2 ML Flush BID IV.FLUSH SCH ×2 (09:20→21:36)
[2018-02-07] MEDS: MethylPREDNISolone Sod Succinate Inj 40 MG/ML Vial IV.PUSH SCH (10:00)
[2018-02-07 11:44] LABS: ABG Base Excess 1.9 mmol/L (-2-2); ABG PCO2 33 mmHg (38-42); ABG PO2 65 mmHG (61-120)
--- NOTE | 2018-02-07 11:59 | P.PNCC ---
Subjective Subjective Remarks/Hospital Course: This is a 32-year-old female that presented to the emergency department last evening. Per report reviewed the patient had complaints myalgias, nausea, vomiting diarrhea in conjunction fever and chills per review of the records the patient went to an urgent care center on and was diagnosed with the flu and subsequently sent home the patient stated her symptoms worsen so she presented to [facility] ED on 2017. Upon presentation imaging and laboratory studies were performed that initially revealed a significant leukocytosis with a WBC count of 20.8, hypokalemia and a chest x-ray revealing extensive bilateral airspace disease. The patient was bolused with IV fluids, and received prophylactic antibiotics, blood cultures were obtained. The patient was admitted to ICU at [place] and ICU was consulted on 01/28/2018 at 2059 ,and was placed on BiPAP overnight with worsening symptomatology. Respiratory rate throughout the night was noted to be in the high 30s-50, with O2 saturation 87-91 % throughout the night. Upon my arrival this am, I examined the patient at 0615, and upon my evaluation this a.m. was noted to be extremely dyspneic, unable to speak secondary to extreme dyspnea, respiratory rate 48-50, and O2 sat 86-87%. A stat ABG was obtained PaO2 was noted to be 84, on 100%, and the patient kept stating she could not breathe. The patient was emergently intubated x1 attempt. Visually O2 saturation remained in the mid 80s-88 % on PEEP 12, FIO2 of 100%, with a slightly extended I- time. A stat ABG was performed PaO2 was noted to be 72, ventilator adjustments continued to optimize oxygenation. Emergent A-line was placed for frequent blood sampling, to evaluate oxygenation. The patient was noted to be in a sinus tach the patient was bolused with additional IV fluids 2 L and placed on sedation, to include, Versed , propofol, fentanyl infusions. The patient's past medical history is significant for hepatitis C, borderline personality disorder Funes acted 2017 secondary to chronic anxiety per records reviewed the patient takes Klonopin. 01/30: The patient's oxygenation moved by midday 01/29, and the patient was transferred via ambulance to [facility]. On her arrival the patient had a CVL placed, echo performed peer and the patient was placed on prone bed for prone positioning. Upon prone positioning, the patient's O2 saturation improved. FiO2 currently is at 60% when patient is in prone position with O2 sat of 100%. The patient remains deeply sedated with neuromuscular blockade Nemex for prone positioning. Urine output is equivalent to 1 cc/kg/h the patient was noted to have a metabolic acidosis this a.m., 50 mEq of sodium bicarbonate was given, IV fluids changed to one half normal saline at 100 cc/ hour. Noted lactic acidemia now resolved. One bottle blood culture showed gram -positive cocci. Discussed with patient's mother and permission granted to obtain HIV labs, deemed medically necessary per ID Dr. Carballo. 01/31: Decreasing FiO2 requirements at this time. Chest x-ray suggestive of interstitial edema, Lasix 40 mg x1 dose provided. IV fluids decreased to 42 cc/ hr . Secondary to prone positioning StatLock removed and central line sutured in place, to prevent possible dislodgment and prone position. Cultures revealed sputum MRSA, and blood gram-positive cocci. HIV testing labs negative. 02/01: Noted improvement clinically and respiratory status O2 requirements have been decreased 0.45% and a PEEP of 8. Patient noted to have a positive fluid balance was diuresed yesterday, chest x-ray shows persistent pulmonary edema Lasix dosing increased to twice daily IV fluids have now been discontinued. Noted thrombocytopenia, heparin platelet antibody has been ordered. Colitis currently being replaced. 02/02: fio2 continues to improve. supinated today and remains stable x 8 hrs. can likely transition off RotaProne bed today. continues to be very volume overloaded, although adequate start to diuresis yesterday. 02/03: The patient was removed from rota prone bread at 1800 yesterday. The patient continues to improve oxygenation. Versed continually being weaned down in anticipation for CPAP trials. Dietary consult has been initiated for tube feeds. 02/04: Afebrile. the patient remained on CPAP trials throughout yesterday afternoon, placed back on a rate last evening. CPAP trials have been reinitiated this a.m. SBT parameters currently being obtain ABG within normal limits plan for possible extubation today 02/05 Tolerated extubation yesterday and remains on 5 L nasal cannula. Has passed bedside swallow evaluation and is requesting to advance diet. Temp max 100.5. Sputum culture 02/03 pending. On cefepime, azithro and vanc per ID. Has been diuresed aggressively. Creatinine normal, alkalosis. Remove invasive lines and Garcia today. Out of bed 02/06 Alkalosis has given way to bicarb of 18.4 following diamox. She is on 6 L NC but is tachypneic, more dyspneic today. +thick sputum production and respiratory muscle weakness are contributing. Guafenesin/nebs/EZPAP. Bipap to support now. May require reintubation, but trying to avoid. Subjective: 02/07 On and off Bipap. She is very weak with critical illness polyneuropathy and I believe this is contributing to her ongoing respiratory issues. Appreciate staff assistance with aggressive pulmonary toilet. Bibasilar infiltrates have persisted. Antibiotics adjusted to zosyn/linezolid yesterday per ID. No fever. She does have uptrending leukocytosis. Will d/c steroids to effort to mitigate weakness. Family and patient aware she may require intubation (which could very well lead to trach due to her weakness). Objective Vital Signs / I&O: Vital Signs 02/06/18 12:00 02/06/18 12:17 02/06/18 13:00 Temperature 99.4 F Pulse Rate 102 H 102 H 103 H Respiratory Rate 22 28 H Blood Pressure 128/85 125/80 Pulse Oximetry 98 95 02/06/18 14:00 02/06/18 15:00 02/06/18 16:00 Temperature 99.5 F Pulse Rate 103 H 97 H 97 H Respiratory Rate 25 H Blood Pressure 126/85 109/64 114/67 Pulse Oximetry 99 98 99 02/06/18 16:36 02/06/18 17:00 02/06/18 18:00 Temperature Pulse Rate 87 90 Respiratory Rate Blood Pressure 106/66 Pulse Oximetry 100 98 02/06/18 20:00 02/06/18 21:00 02/06/18 22:00 Temperature 98.7 F Pulse Rate 80 83 83 Respiratory Rate Blood Pressure 110/68 110/71 104/62 Pulse Oximetry 99 98 94 L 02/06/18 22:43 02/06/18 23:00 02/07/18 00:00 Temperature 99.6 F Pulse Rate 87 88 Respiratory Rate Blood Pressure 112/69 120/72 Pulse Oximetry 97 92 L 96 02/07/18 00:27 02/07/18 01:00 02/07/18 02:00 Temperature Pulse Rate 81 99 H Respiratory Rate Blood Pressure 121/78 127/82 Pulse Oximetry 95 92 L 96 02/07/18 03:00 02/07/18 04:00 02/07/18 06:00 Temperature 98.9 F Pulse Rate 105 H 103 H 106 H Respiratory Rate Blood Pressure 121/74 113/74 Pulse Oximetry 98 96 02/07/18 07:00 02/07/18 08:00 02/07/18 09:00 Temperature 98.7 F Pulse Rate 102 H 99 H 102 H Respiratory Rate Blood Pressure 105/63 104/58 L 104/58 L Pulse Oximetry 98 90 L 99 02/07/18 10:00 02/07/18 11:02 Temperature Pulse Rate 99 H 95 H Respiratory Rate 26 H Blood Pressure 121/64 Pulse Oximetry 92 L Intake & Output 02/06/18 02/07/18 02/07/18 18:59 06:59 18:59 Intake Total 1140 / 1140 775 / 775 100 / 100 Output Total 1000 / 1000 1600 / 1600 Balance 140 / 140 -825 / -825 100 / 100 Weight 63 kg Intake: IV 690 / 690 575 / 575 100 / 100 Zyvox 600 mg Premix 300 ML @ 295 / 295 290 / 290 300 mls/hr IV.SIG Q12H BENOIT Rx#: [id number] Zosyn 4.5 GM Premix 4.5 gm In 95 / 95 190 / 190 100 / 100 100 ml @ 200 mls/hr IV.SIG Q6H BENOIT Rx#:[id number] KCl 20 mEq Premix Inj 20 meq In 300 / 300 95 / 95 100 ml @ 50 mls/hr IV.SIG Q2H PRN Rx#:[id number] Oral 450 / 450 200 / 200 Output: Urine 1000 / 1000 1600 / 1600 Other: Date of Last Bowel Movement 02/03/18 02/03/18 02/03/18 Result Diagrams: 02/07/18 02:50 02/07/18 02:50 Objective Remarks: GENERAL: Young female, sitting up in bed, alert and conversant. Tachypneic. SKIN: Warm and dry. HEAD: Atraumatic. Normocephalic. EYES: Pupils equal and round. No scleral icterus. No injection or drainage. ENT:Bipap mask in place. NECK: Trachea midline. No JVD. CARDIOVASCULAR: Normal rate, regular rhythm. sinus on the monitor. RESPIRATORY: No accessory muscle use. Rales in right base. Scattered rhonchi. No wheeze. GASTROINTESTINAL: Abdomen soft, non-tender, nondistended. Bowel sounds present. MUSCULOSKELETAL: Extremities without clubbing, cyanosis, trace edema. No obvious deformities. Bruising noted on right forehead left great toe 2/2 rota prone bed positioning. Also skin breakdown medial lower legs bilaterally. NEUROLOGICAL: Awake, oriented to person, place, circumstance. She does move all extremities to command. Hip flexor 3/5, hamstring 2/5, wiggles toes. weak art director strength bilaterally, deltoids 3/5, biceps 2/5. Procedures: 01/31: Sutured right IJ, StatLock removed. Assessment and Plan - Problem List (1) Acute respiratory failure with hypoxia and hypercarbia Code(s): J96.01 - Acute respiratory failure with hypoxia; J96.02 - Acute respiratory failure with hypercapnia Status: Resolved (2) Hepatitis Code(s): K75.9 - Inflammatory liver disease, unspecified Status: Acute (3) Bilateral pneumonia Code(s): J18.9 - Pneumonia, unspecified organism Status: Acute (4) Sepsis Code(s): A41.9 - Sepsis, unspecified organism Status: Acute (5) Hypoxia Code(s): R09.02 - Hypoxemia Status: Acute (6) Leukocytosis Code(s): D72.829 - Elevated white blood cell count, unspecified Status: Acute (7) Hyperglycemia Code(s): R73.9 - Hyperglycemia, unspecified Status: Acute (8) Thrombocytopenia Code(s): D69.6 - Thrombocytopenia, unspecified Status: Acute (9) Polyneuropathy associated with critical illness Code(s): G62.81 - Critical illness polyneuropathy Status: Acute - Assessment and Plan Plan: Plan by systems: Neurologic: Anxiety disorder Borderline personality disorder Substance use disordercocaine abuse Acetaminophen 650 mg every 6 hours as needed for temperature greater than 101.0 01/28 urine drug screen-positive for cocaine Critical illness polyneuropathy OT consult. Daily PT. Out of bed to chair. Respiratory: Acute hypoxemic and hypercarbic respiratory failure Bilateral pneumonia Tobacco use disorder ARDS bilateral pulmonary edema- severe Duoneb q4/EZPAP. Guafenesin 600 bid. suction prn. Resp muscle weakness contributing, supporting resp effort with BIPAP. D/c solumedrol. Pulmonology following. 1Legionella, pneumococcal urine antigens-neg Influenza antigens A/Bneg. 01/29-intubated 7.5 ETT 22 at the lip, Extubated 02/04 Dr. Syed following. On Lasix 40 q8, significant net negative, decrease to q12. Cardiovascular: Sinus tachycardia- resolved Maintain MAP > 65mmHg 01/28 Echo EF 40-45%, moderately dilated left ventricle, LAD infarct vs. Taktsubo cardiomyopathy, no vegetations noted PAP 42 Coreg 12.5 bid[address] ASA [address] Mendoza evaluated, plan for stress when stabilized and out of ICU. Renal/FEN: Removed Garcia 02/05. KCL 20 mEq po bid while on Lasix. Monitoring creatinine. GI: Hepatitis C Transaminitis Metabolic alkalosis resolved. Hypernatremia - Related to diuresis. Patient should self-correct now that diet advanced. Hypokalemia Regular diet. Add ensure tid. Monitor CMP Electrolyte replacement per ICU protocol Heme/ID: MRSA Pneumonia Severe sepsis Leukocytosis-resolved ARDS Hepatitis C AB positive - RNA viral load pending. Thrombocytopenia 01/28-Legionella, mycoplasma, pneumococcal antigens-negative 01/28 sputum culture-negative Virar respiratory PCR negative. ID consulted-Dr. Carballo following. On zosyn, linezolid per ID. 01/28 Blood MRSA. Subsequent Blood culture 02/02 NGTD. HIV- negative, CD4 185 F/U HCV PCR 02/02 Heparin platelet antibody-negative Endocrine: Hyperglycemia of critical illness No longer requiring insulin. Will discontinue Prophylaxis: GI Prophylaxis famotidine DVT Prophylaxis -- SCDs Lines: PIV. D/c R IJ CVL (01/29-02/05 , Right rad arterial line d/c'd 02.05. Arterial line left radial (dc'd 02/01), Mother and grandmother updated 02/07 and multiple questions answered. Level 3 follow-up (3) Bilateral pneumonia Qualifiers: Pneumonia type: due to unspecified organism Lung location: unspecified part of lung Qualified Code(s): J18.9 - Pneumonia, unspecified organism (4) Sepsis Qualifiers: Sepsis type: sepsis due to unspecified organism Qualified Code(s): A41.9 - Sepsis, unspecified organism (6) Leukocytosis Qualifiers: Leukocytosis type: unspecified Qualified Code(s): D72.829 - Elevated white blood cell count, unspecified
--- NOTE | 2018-02-07 13:29 | P.PNID ---
Subjective Remarks: ID X cover cxhart was reviewed case dw Dr Moreno pt is afebrile and off pressors but having resp issues, currently on BIPAP resp panel negative repeat clx P WBC up to 19K Antibiotics: zpsyn zyvox on sterroids Past Medical History: PAST MEDICAL HISTORY: Reportedly negative. The patient has been evaluated for psychiatric adjustment disorder. Allergies/Adverse Reactions: Allergies Sulfa (Sulfonamide Antibiotics) Allergy (Intermediate, Verified 05/14/17 22:25) PT STATES INCREASES HER TEMP Objective Vital Signs 02/06/18 14:00 02/06/18 15:00 02/06/18 16:00 Temperature 99.5 F Pulse Rate 103 H 97 H 97 H Respiratory Rate 25 H Blood Pressure 126/85 109/64 114/67 Pulse Oximetry 99 98 99 02/06/18 16:36 02/06/18 17:00 02/06/18 18:00 Temperature Pulse Rate 87 90 Respiratory Rate Blood Pressure 106/66 Pulse Oximetry 100 98 02/06/18 20:00 02/06/18 21:00 02/06/18 22:00 Temperature 98.7 F Pulse Rate 80 83 83 Respiratory Rate Blood Pressure 110/68 110/71 104/62 Pulse Oximetry 99 98 94 L 02/06/18 22:43 02/06/18 23:00 02/07/18 00:00 Temperature 99.6 F Pulse Rate 87 88 Respiratory Rate Blood Pressure 112/69 120/72 Pulse Oximetry 97 92 L 96 02/07/18 00:27 02/07/18 01:00 02/07/18 02:00 Temperature Pulse Rate 81 99 H Respiratory Rate Blood Pressure 121/78 127/82 Pulse Oximetry 95 92 L 96 02/07/18 03:00 02/07/18 04:00 02/07/18 06:00 Temperature 98.9 F Pulse Rate 105 H 103 H 106 H Respiratory Rate Blood Pressure 121/74 113/74 Pulse Oximetry 98 96 02/07/18 07:00 02/07/18 08:00 02/07/18 09:00 Temperature 98.7 F Pulse Rate 102 H 99 H 102 H Respiratory Rate Blood Pressure 105/63 104/58 L 104/58 L Pulse Oximetry 98 90 L 99 02/07/18 10:00 02/07/18 11:02 Temperature Pulse Rate 99 H 95 H Respiratory Rate 26 H Blood Pressure 121/64 Pulse Oximetry 92 L Intake & Output 02/06/18 02/07/18 02/07/18 18:59 06:59 18:59 Intake Total 1140 / 1140 775 / 775 100 / 100 Output Total 1000 / 1000 1600 / 1600 Balance 140 / 140 -825 / -825 100 / 100 Weight 63 kg Intake: IV 690 / 690 575 / 575 100 / 100 Zyvox 600 mg Premix 300 ML @ 295 / 295 290 / 290 300 mls/hr IV.SIG Q12H BENOIT Rx#: [id number] Zosyn 4.5 GM Premix 4.5 gm In 95 / 95 190 / 190 100 / 100 100 ml @ 200 mls/hr IV.SIG Q6H BENOIT Rx#:[id number] KCl 20 mEq Premix Inj 20 meq In 300 / 300 95 / 95 100 ml @ 50 mls/hr IV.SIG Q2H PRN Rx#:[id number] Oral 450 / 450 200 / 200 Output: Urine 1000 / 1000 1600 / 1600 Other: Date of Last Bowel Movement 02/03/18 02/03/18 02/03/18 02/07/18 10:00 Sputum - Expectorated Sputum Gram Stain - Pending 02/07/18 10:00 Sputum - Expectorated Sputum Sputum Culture - Pending 02/02/18 03:40 Blood - Peripheral Aerobic Blood Culture - Final No growth in 5 days 02/02/18 03:40 Blood - Peripheral Anaerobic Blood Culture - Final No growth in 5 days 02/02/18 03:05 Blood - Peripheral Aerobic Blood Culture - Final No growth in 5 days 02/02/18 03:05 Blood - Peripheral Anaerobic Blood Culture - Final No growth in 5 days 02/03/18 17:45 Sputum - Endotracheal Gram Stain - Final 02/03/18 17:45 Sputum - Endotracheal Sputum Culture - Final S. aureus MRSA Lab - Hematology Results 02/06/18 02/07/18 08:35 02:50 WBC 17.5 H 19.3 H RBC 3.37 L 3.97 L Hgb 12.0 14.1 D Hct 35.6 41.2 MCV 105.6 H 103.7 H MCH 35.7 H 35.6 H MCHC 33.8 34.3 RDW 18.2 H 18.5 H Plt Count 173 241 D MPV 10.5 10.6 Lab - Chemistry Results 02/05/18 02/06/18 02/06/18 21:50 06:05 08:35 Sodium 140 D Potassium 3.2 L Chloride 109 H Carbon Dioxide 18.4 L D Anion Gap 13 BUN 18 Creatinine 0.36 L Estimated GFR Greater than 89 POC Glucose 134 H 140 H Random Glucose 114 H Calcium 7.6 L Phosphorus 2.4 L Magnesium 1.6 02/06/18 02/06/18 02/06/18 14:14 17:41 21:36 Sodium Potassium Chloride Carbon Dioxide Anion Gap BUN Creatinine Estimated GFR POC Glucose 144 H 161 H 117 H Random Glucose Calcium Phosphorus Magnesium 02/07/18 02/07/18 02/07/18 02:50 04:19 09:17 Sodium 139 Potassium 3.6 Chloride 103 Carbon Dioxide 26.1 Anion Gap 10 BUN 20 H Creatinine 0.56 Estimated GFR Greater than 89 POC Glucose 140 H 133 H Random Glucose 152 H Calcium 8.3 L Phosphorus 3.3 Magnesium 1.6 02/07/18 10:53 Sodium Potassium Chloride Carbon Dioxide Anion Gap BUN Creatinine Estimated GFR POC Glucose Random Glucose Calcium Phosphorus Magnesium 1.5 Imaging: ITS Impressions Chest CT 01/28/18 18:20 CONCLUSION: Extensive bilateral airspace disease Abdomen X-Ray 02/03/18 00:37 CONCLUSION: 1. OG tube tip in the distal stomach near the duodenal bulb. Chest X-Ray 02/06/18 11:02 CONCLUSION: Increasing airspace disease in both lungs predominantly within the midlungs and bases. Physical Exam: GENERAL: On BIPAP HEENT: Extraocular movements grossly intact. Pupils reactive to light. No icterus. oral mucosae moist NECK: No adenopathy or swelling. LUNGS: Diffuse rhonchi, more so on the L HEART: Normal S1 and S2, without audible murmurs, rubs, or gallops. ABDOMEN: Decreased bowel sounds. Soft, nontender. No palpable mass. EXTREMITIES: No clubbing. No cyanosis, trace edema.. SKIN: No rash. warm and moist. NEUROLOGIC: quite lethargic PSYCHIATRIC: unable to assess Assessment and Plan - Plan IMPRESSION: 1. Bilateral pneumonia. MRSA. 2. Bacteremia. Staph aureus. MSSA. 3. Hypoxia. worsening. 4. Acute respiratory failure. Extubated - now again worsening resp status, on NIVM 5. Elevated liver function tests. Improved. 6. Leukocytosis. Up to 19 K 7. ALLERGY TO SULFA. Unstyable today from resp standpoint RECOMMENDATIONS: 1. cont zosyn 2. cont linezolid 3. dc sterroids if feasible 4. sputum clx 5. Monitor clinical status. maureen reddy RN
--- NOTE | 2018-02-07 15:00 | US ---
EXAM DATE: 02/07/2018 2:10 PM EST AGE/SEX: 32 years / Female INDICATIONS: Bilateral leg pain. CLINICAL DATA: This is the patient's initial encounter. Patient reports that signs and symptoms have been present for 1 day and indicates a pain score of 0/10. MEDICAL/SURGICAL HISTORY: . History of MRSA. None. COMPARISON: No prior exams available for comparison. TECHNIQUE: Venous ultrasound of both lower extremities was performed from the inguinal ligament to t he proximal calf. Real-time, color Doppler and spectral tracing, compression and augmentation techni ques were used. FINDINGS: Right Leg: Normal compression of the deep venous system from the inguinal region to the proximal sarah f. No echogenic clot is seen. Normal response of the venous system to augmentation and respiration. Left Leg: Normal compression of the deep venous system from the inguinal region to the proximal calf . No echogenic clot is seen. Normal response of the venous system to augmentation and respiration. Other: None. CONCLUSION: The study is negative for bilateral lower extremity deep venous thrombosis. Electronically signed by: Walt Maurice MD Board Certified Radiologist 02/07/2018 2:59 PM EST
--- NOTE | 2018-02-07 15:13 | P.PN ---
Subjective Interval history: On a BIPAP mask and FIO2 50 %. She has been tachypneic. Output was OK. Physical Exam Vital signs: Vital Signs 02/06/18 16:00 02/06/18 16:36 02/06/18 17:00 Temperature 99.5 F Pulse Rate 97 H 87 Respiratory Rate 25 H Blood Pressure 114/67 106/66 Pulse Oximetry 99 100 98 02/06/18 18:00 02/06/18 20:00 02/06/18 21:00 Temperature 98.7 F Pulse Rate 90 80 83 Respiratory Rate Blood Pressure 110/68 110/71 Pulse Oximetry 99 98 02/06/18 22:00 02/06/18 22:43 02/06/18 23:00 Temperature Pulse Rate 83 87 Respiratory Rate Blood Pressure 104/62 112/69 Pulse Oximetry 94 L 97 92 L 02/07/18 00:00 02/07/18 00:27 02/07/18 01:00 Temperature 99.6 F Pulse Rate 88 81 Respiratory Rate Blood Pressure 120/72 121/78 Pulse Oximetry 96 95 92 L 02/07/18 02:00 02/07/18 03:00 02/07/18 04:00 Temperature 98.9 F Pulse Rate 99 H 105 H 103 H Respiratory Rate Blood Pressure 127/82 121/74 113/74 Pulse Oximetry 96 98 96 02/07/18 06:00 02/07/18 07:00 02/07/18 08:00 Temperature 98.7 F Pulse Rate 106 H 102 H 99 H Respiratory Rate Blood Pressure 105/63 104/58 L Pulse Oximetry 98 90 L 02/07/18 09:00 02/07/18 10:00 02/07/18 11:02 Temperature Pulse Rate 102 H 99 H 95 H Respiratory Rate 26 H Blood Pressure 104/58 L 121/64 Pulse Oximetry 99 92 L Intake & Output 02/06/18 02/07/18 02/07/18 18:59 06:59 18:59 Intake Total 1140 / 1140 775 / 775 100 / 100 Output Total 1000 / 1000 1600 / 1600 Balance 140 / 140 -825 / -825 100 / 100 Weight 63 kg Intake: IV 690 / 690 575 / 575 100 / 100 Zyvox 600 mg Premix 300 ML @ 295 / 295 290 / 290 300 mls/hr IV.SIG Q12H [facility] Rx#: [id number] Zosyn 4.5 GM Premix 4.5 gm In 95 / 95 190 / 190 100 / 100 100 ml @ 200 mls/hr IV.SIG Q6H [facility]ENO[facility] Rx#:[id number] KCl 20 mEq Premix Inj 20 meq In 300 / 300 95 / 95 100 ml @ 50 mls/hr IV.SIG Q2H PRN Rx#:[id number] Oral 450 / 450 200 / 200 Output: Urine 1000 / 1000 1600 / 1600 Other: Date of Last Bowel Movement 02/03/18 02/03/18 02/03/18 GENERAL: Young lady alert on BiPAP SKIN: Warm and dry. HEAD: Atraumatic. Normocephalic. EYES: Pupils equal and round. No scleral icterus. No injection or drainage. ENT: No nasal bleeding or discharge. Mucous membranes pink and moist. NECK: Trachea midline. No JVD. CARDIOVASCULAR: Regular rate and rhythm. RESPIRATORY: Has accessory muscle use. Bilateral crackles and wheezes. Breath sounds equal bilaterally. GASTROINTESTINAL: Abdomen soft, non-tender, nondistended. Hepatic and splenic margins not palpable. MUSCULOSKELETAL: Extremities without clubbing, cyanosis, or edema. No obvious deformities. NEUROLOGICAL: Awake and alert. No obvious cranial nerve deficits. Motor grossly within normal limits. Normal speech. PSYCHIATRIC: Appropriate mood and affect. - Urinary Catheter Management Indwelling Urethral Catheter Cath placed during this visit: yes Reason for continuing: Other continuation reason Insertion date: 01/29/18 Insertion time: 07:15 Results - Labs CBC & Chem 7: 02/07/18 02:50 02/07/18 02:50 Laboratory Results - last 24 hr 02/06/18 02/06/18 02/07/18 17:41 21:36 00:40 WBC RBC Hgb Hct MCV MCH MCHC RDW Plt Count MPV Puncture Site Patient Temperature O2 Saturation ABG pH ABG pCO2 ABG pO2 ABG HCO3 ABG O2 Content ABG Base Excess ABG Methemoglobin Alex Test Hemoglobin Carboxyhemoglobin O2 Delivery Device Liter Flow Vent Setting Inspired O2 Critical Value Sodium Potassium Chloride Carbon Dioxide Anion Gap BUN Creatinine Estimated GFR POC Glucose 161 H 117 H Random Glucose Calcium Phosphorus Magnesium Vancomycin Trough Adenovirus (PCR) Not detected Bordetella holmesii PCR Not detected B. pertussis DNA (PCR) Not detected B. paraper/bronch (PCR) Not detected Human Metapneumovir PCR Not detected Influenza A (RT-PCR) Not detected Influenza A (H1) PCR Not detected Influenza A (H3) PCR Not detected Influenza B (RT-PCR) Not detected Parainfluenza 1 (PCR) Not detected Parainfluenza 2 (PCR) Not detected Parainfluenza 3 (PCR) Not detected Parainfluenza 4 (PCR) Not detected RSV Type A (PCR) Not detected RSV Type B (PCR) Not detected Rhinovirus (PCR) Not detected 02/07/18 02/07/18 02/07/18 02:50 02:50 02:50 WBC 19.3 H RBC 3.97 L Hgb 14.1 D Hct 41.2 MCV 103.7 H MCH 35.6 H MCHC 34.3 RDW 18.5 H Plt Count 241 D MPV 10.6 Puncture Site Patient Temperature O2 Saturation ABG pH ABG pCO2 ABG pO2 ABG HCO3 ABG O2 Content ABG Base Excess ABG Methemoglobin Alex Test Hemoglobin Carboxyhemoglobin O2 Delivery Device Liter Flow Vent Setting Inspired O2 Critical Value Sodium 139 Potassium 3.6 Chloride 103 Carbon Dioxide 26.1 Anion Gap 10 BUN 20 H Creatinine 0.56 Estimated GFR Greater than 89 POC Glucose Random Glucose 152 H Calcium 8.3 L Phosphorus 3.3 Magnesium 1.6 Vancomycin Trough 6.1 Adenovirus (PCR) Bordetella holmesii PCR B. pertussis DNA (PCR) B. paraper/bronch (PCR) Human Metapneumovir PCR Influenza A (RT-PCR) Influenza A (H1) PCR Influenza A (H3) PCR Influenza B (RT-PCR) Parainfluenza 1 (PCR) Parainfluenza 2 (PCR) Parainfluenza 3 (PCR) Parainfluenza 4 (PCR) RSV Type A (PCR) RSV Type B (PCR) Rhinovirus (PCR) 02/07/18 02/07/18 02/07/18 04:19 09:17 10:53 WBC RBC Hgb Hct MCV MCH MCHC RDW Plt Count MPV Puncture Site Patient Temperature O2 Saturation ABG pH ABG pCO2 ABG pO2 ABG HCO3 ABG O2 Content ABG Base Excess ABG Methemoglobin Alex Test Hemoglobin Carboxyhemoglobin O2 Delivery Device Liter Flow Vent Setting Inspired O2 Critical Value Sodium Potassium Chloride Carbon Dioxide Anion Gap BUN Creatinine Estimated GFR POC Glucose 140 H 133 H Random Glucose Calcium Phosphorus Magnesium 1.5 Vancomycin Trough Adenovirus (PCR) Bordetella holmesii PCR B. pertussis DNA (PCR) B. paraper/bronch (PCR) Human Metapneumovir PCR Influenza A (RT-PCR) Influenza A (H1) PCR Influenza A (H3) PCR Influenza B (RT-PCR) Parainfluenza 1 (PCR) Parainfluenza 2 (PCR) Parainfluenza 3 (PCR) Parainfluenza 4 (PCR) RSV Type A (PCR) RSV Type B (PCR) Rhinovirus (PCR) 02/07/18 02/07/18 11:27 13:15 WBC RBC Hgb Hct MCV MCH MCHC RDW Plt Count MPV Puncture Site Left radial Patient Temperature 98.6 O2 Saturation 90 ABG pH 7.49 H ABG pCO2 33 L ABG pO2 65 ABG HCO3 25 ABG O2 Content 16.2 ABG Base Excess 1.9 ABG Methemoglobin 1.6 Alex Test Present Hemoglobin 12.7 Carboxyhemoglobin 1.0 O2 Delivery Device Bipap Liter Flow Cremator Vent Setting See comments Inspired O2 60 Critical Value No Sodium Potassium Chloride Carbon Dioxide Anion Gap BUN Creatinine Estimated GFR POC Glucose 152 H Random Glucose Calcium Phosphorus Magnesium Vancomycin Trough Adenovirus (PCR) Bordetella holmesii PCR B. pertussis DNA (PCR) B. paraper/bronch (PCR) Human Metapneumovir PCR Influenza A (RT-PCR) Influenza A (H1) PCR Influenza A (H3) PCR Influenza B (RT-PCR) Parainfluenza 1 (PCR) Parainfluenza 2 (PCR) Parainfluenza 3 (PCR) Parainfluenza 4 (PCR) RSV Type A (PCR) RSV Type B (PCR) Rhinovirus (PCR) Microbiology 02/07/18 10:00 Sputum - Expectorated Sputum Gram Stain - Final 02/02/18 03:40 Blood - Peripheral Aerobic Blood Culture - Final No growth in 5 days 02/02/18 03:40 Blood - Peripheral Anaerobic Blood Culture - Final No growth in 5 days 02/02/18 03:05 Blood - Peripheral Aerobic Blood Culture - Final No growth in 5 days 02/02/18 03:05 Blood - Peripheral Anaerobic Blood Culture - Final No growth in 5 days - Imaging Impressions Venous Doppler Study 02/07/18 13:15 CONCLUSION: The study is negative for bilateral lower extremity deep venous thrombosis. Assessment and Plan - Assessment (1) Bilateral pneumonia Code(s): J18.9 - Pneumonia, unspecified organism Status: Acute (2) Sepsis Code(s): A41.9 - Sepsis, unspecified organism Status: Acute (3) Hypoxia Code(s): R09.02 - Hypoxemia Status: Acute (4) Leukocytosis Code(s): D72.829 - Elevated white blood cell count, unspecified Status: Acute (5) Acute respiratory failure with hypoxia and hypercarbia Code(s): J96.01 - Acute respiratory failure with hypoxia; J96.02 - Acute respiratory failure with hypercapnia Status: Resolved (6) Hepatitis Code(s): K75.9 - Inflammatory liver disease, unspecified Status: Acute (7) Hyperglycemia Code(s): R73.9 - Hyperglycemia, unspecified Status: Acute (8) Thrombocytopenia Code(s): D69.6 - Thrombocytopenia, unspecified Status: Acute - Plan 1. Resp Insufficiency s/p Extubation 02/04 2. ARDS 3. MRSA pneumonia. 4. Staphylococcus aureus bacteremia. 5. Hepatitis C. 6. Anemia. 7. Thrombocytopenia. 8. Hypernatremia. Plan 1.Wean oxygen and maintain sats >92%. 2.Bronchodilators, IS 3.Solu-Medrol 40mg IV Q8h 4.BIPAP 12/5 CM FIo2 40 % today and HS 5.CXR BMP ,CBC in am 6.Abx per ID -vancomycin, Cefepime and azithromycin. 7. Continue Duoneb nebs qid prn 7. lasix 40 Mg IV Q12 H (1) Bilateral pneumonia Qualifiers: Pneumonia type: due to unspecified organism Lung location: unspecified part of lung Qualified Code(s): J18.9 - Pneumonia, unspecified organism (2) Sepsis Qualifiers: Sepsis type: sepsis due to unspecified organism Qualified Code(s): A41.9 - Sepsis, unspecified organism (4) Leukocytosis Qualifiers: Leukocytosis type: unspecified Qualified Code(s): D72.829 - Elevated white blood cell count, unspecified
--- NOTE | 2018-02-07 18:15 | XR ---
EXAM DATE: 02/07/2018 6:12 PM EST AGE/SEX: 32 years / Female INDICATIONS: Respiratory distress. CLINICAL DATA: This is the patient's subsequent encounter. Patient reports that signs and symptoms h ave been present for 3 days and indicates a pain score of 0/10. MEDICAL/SURGICAL HISTORY: . History of MRSA None. COMPARISON: [facility] – [place], CHEST 1V SINGLE AP, 02/06/2018. . FINDINGS: Previous basilar airspace disease in right pleural effusion have improved slightly over the last day. Heart size normal. No new infiltrate. No pneumothorax. CONCLUSION: Slight improvement in bilateral airspace disease and right pleural effusion over the last day. Electronically signed by: Leonel Vitale MD Board Certified Radiologist 02/07/2018 6:14 PM EST
[2018-02-07] MEDS: Enoxaparin Inj 40 MG/0.4 ML Syringe SQ SCH (21:36)
[2018-02-08] MEDS: Oral Hygiene Kit OROPHARYNG SCH ×4 (00:44→18:51)
[2018-02-08] MEDS: Piperacil/Tazo 4.5 GM Premix 4.5 GM/100 ML BAG IV.SIG SCH ×4 (04:37→21:30)
[2018-02-08] MEDS: Insulin NovoLIN Regular Correctional Sugar Inj SQ SCH (05:35)
[2018-02-08 07:11] LABS: Hematocrit 35.9 % (35.0-46.0); Hemoglobin 12.3 gm/dL (11.6-15.3); Mean Corpuscular HGB Conc 34.3 % (32.0-36.0); Mean Corpuscular Hemoglobin 35.7 pg (27.0-34.0); Mean Platelet Volume 10.7 fL (7.0-11.0); Platelet Count 242 th/mm3 (150-450); Red Blood Count 3.45 mil/mm3 (4.00-5.30); Red Cell Distribution Width 17.8 % (11.6-17.2); White Blood Count 18.6 th/mm3 (4.0-11.0)
[2018-02-08 07:37] LABS: Anion Gap 11 meq/L (5-15); Blood Urea Nitrogen 22 mg/dL (7-18); Calcium 8.1 mg/dL (8.5-10.1); Carbon Dioxide 28.5 meq/L (21.0-32.0); Chloride 99 meq/L (98-107); Glomerular Filtration Rate Greater Than 89 mL/min (>89); Glucose,Random 101 mg/dL (74-106); Magnesium 1.7 mg/dL (1.5-2.5); Phosphorus 2.5 mg/dL (2.5-4.9); Potassium 3.2 meq/L (3.5-5.1); Sodium 138 meq/L (136-145)
--- NOTE | 2018-02-08 08:50 | XR ---
EXAM DATE: 02/08/2018 8:41 AM EST AGE/SEX: 32 years / Female INDICATIONS: Bilateral pneumonia. CLINICAL DATA: This is the patient's subsequent encounter. Patient reports that signs and symptoms h ave been present for 1 week and indicates a pain score of 0/10. MEDICAL/SURGICAL HISTORY: None. None. COMPARISON: [facility] – [place], CHEST 1V SINGLE AP, 02/07/2018. . FINDINGS: Stable patchy airspace disease in the lateral right lower lung zone with probable trace right-sided p leural effusion. Persistent minimal patchy airspace disease in the left lower lung zone. Slight incre ased patchy parenchymal opacities in the right upper lung zone. Cardiomediastinal contours are within normal limits. Remainder of exam is unchanged. CONCLUSION: 1. Stable right lower lobe airspace disease and probable trace pleural effusion. 2. Improved minimal residual patchy airspace disease in the left lower lung zone. 3. Increased ill-defined parenchymal opacity in the right upper lung zone which may reflect atelecta sis. Cannot exclude developing new airspace disease. Electronically signed by: Carlos Dodge MD Board Certified Radiologist 02/08/2018 8:49 AM ANDREW Sutherland
--- NOTE | 2018-02-08 08:54 | P.PNPL ---
Subjective Interval history: Patient is on 6L simple mask with good sats. Awake and alert. Afebrile. Physical Exam Vital signs: Vital Signs 02/07/18 09:00 02/07/18 10:00 02/07/18 11:00 Temperature Pulse Rate 102 H 99 H 96 H Respiratory Rate Blood Pressure 104/58 L 121/64 113/60 Pulse Oximetry 99 92 L 92 L 02/07/18 11:02 02/07/18 12:00 02/07/18 13:00 Temperature 99.5 F Pulse Rate 95 H 96 H 100 H Respiratory Rate 26 H Blood Pressure 115/61 Pulse Oximetry 97 99 02/07/18 13:43 02/07/18 14:00 02/07/18 15:00 Temperature Pulse Rate 98 H 99 H 92 H Respiratory Rate Blood Pressure 101/67 97/59 L 108/57 L Pulse Oximetry 100 97 95 02/07/18 16:00 02/07/18 17:00 02/07/18 17:52 Temperature Pulse Rate 91 H 83 90 Respiratory Rate 18 Blood Pressure 103/59 L 117/65 Pulse Oximetry 95 92 L 02/07/18 18:00 02/07/18 19:00 02/07/18 20:00 Temperature 98.2 F 99.1 F Pulse Rate 90 91 H 90 Respiratory Rate Blood Pressure 108/74 109/62 109/57 L Pulse Oximetry 87 L 98 99 02/07/18 21:00 02/07/18 21:16 02/07/18 21:21 Temperature Pulse Rate 94 H 105 H Respiratory Rate 23 Blood Pressure 108/65 Pulse Oximetry 97 94 L 93 L 02/07/18 21:25 02/07/18 22:00 02/07/18 23:00 Temperature Pulse Rate 103 H 94 H 102 H Respiratory Rate Blood Pressure 115/69 Pulse Oximetry 94 L 99 98 02/08/18 00:00 02/08/18 00:09 02/08/18 01:00 Temperature 98.7 F Pulse Rate 94 H 95 H Respiratory Rate Blood Pressure Pulse Oximetry 94 L 95 100 02/08/18 01:32 02/08/18 02:00 02/08/18 03:00 Temperature Pulse Rate 98 H 102 H 101 H Respiratory Rate Blood Pressure 98/53 L Pulse Oximetry 100 96 98 02/08/18 03:57 02/08/18 04:00 02/08/18 05:00 Temperature 98.7 F Pulse Rate 104 H 104 H 88 Respiratory Rate Blood Pressure 103/55 L Pulse Oximetry 94 L 94 L 98 02/08/18 06:00 02/08/18 08:05 Temperature Pulse Rate 88 Respiratory Rate Blood Pressure Pulse Oximetry 97 Intake & Output 02/07/18 02/08/18 02/08/18 18:59 06:59 18:59 Intake Total 700 / 700 1185 / 1185 Output Total 1700 / 1700 1200 / 1200 Balance -1000 / -1000 -15 / -15 Weight 61.5 kg Intake: IV 100 / 100 885 / 885 Zyvox 600 mg Premix 300 ML @ 595 / 595 300 mls/hr IV.SIG Q12H [facility] Rx#: [id number] Zosyn 4.5 GM Premix 4.5 gm In 100 / 100 290 / 290 100 ml @ 200 mls/hr IV.SIG Q6H [facility]ENO[facility] Rx#:[id number] Oral 600 / 600 300 / 300 Output: Urine 1700 / 1700 1200 / 1200 Other: Date of Last Bowel Movement 02/03/18 02/03/18 # Emeses 1 - Constitutional no acute distress, average body habitus - Routine HEENT Exam Head: Present: normocephalic, atraumatic Eye: Present: EOMI, PERRL, normal accommodation, conjunctivae pink ENT: Present: mucous membranes moist - Routine Neck Exam Present: supple, full ROM, trachea midline - Routine Respiratory Exam Present: CTA bilaterally - Routine Cardiovascular Exam Present: RRR, S1, S2 - Routine Abdominal Exam Present: soft, normoactive bowel sounds - Routine Extremities Exam Present: full ROM, pulses intact - Routine Skin Exam Present: intact, dry - Routine Neurological Exam Present: alert, oriented X3, CN II-XII intact - Urinary Catheter Management Indwelling Urethral Catheter Cath placed during this visit: yes Reason for continuing: Other continuation reason Insertion date: 01/29/18 Insertion time: 07:15 Assessment and Plan - Assessment (1) Acute respiratory failure with hypoxia and hypercarbia Code(s): J96.01 - Acute respiratory failure with hypoxia; J96.02 - Acute respiratory failure with hypercapnia Status: Resolved (2) Hepatitis Code(s): K75.9 - Inflammatory liver disease, unspecified Status: Acute (3) Bilateral pneumonia Code(s): J18.9 - Pneumonia, unspecified organism Status: Acute Qualifiers: Pneumonia type: due to unspecified organism Lung location: unspecified part of lung Qualified Code(s): J18.9 - Pneumonia, unspecified organism (4) Sepsis Code(s): A41.9 - Sepsis, unspecified organism Status: Acute Qualifiers: Sepsis type: sepsis due to unspecified organism Qualified Code(s): A41.9 - Sepsis, unspecified organism (5) Hypoxia Code(s): R09.02 - Hypoxemia Status: Acute (6) Leukocytosis Code(s): D72.829 - Elevated white blood cell count, unspecified Status: Acute Qualifiers: Leukocytosis type: unspecified Qualified Code(s): D72.829 - Elevated white blood cell count, unspecified (7) Hyperglycemia Code(s): R73.9 - Hyperglycemia, unspecified Status: Acute (8) Thrombocytopenia Code(s): D69.6 - Thrombocytopenia, unspecified Status: Acute (9) Polyneuropathy associated with critical illness Code(s): G62.81 - Critical illness polyneuropathy Status: Acute - Plan 1. Resp Insuff s/p Extubation 02/04 2. s/p ARDS 3. MRSA pneumonia. 4. Staphylococcus aureus bacteremia. 5. Hepatitis C. 6. Anemia. 7. Thrombocytopenia. 8. Leukocytosis Plan Continue to wean down oxygen as fabi and maintain sats >92%. Bronchodilators, IS BIPAP PRN CXR today- Stable right lower lobe airspace disease. Improved minimal residual patchy airspace disease in the left lower lung zone. Parenchymal opacity in the right upper lung zone which may reflect atelectasis. Abx per ID -Fili Costa. [facility] for signs of infections ( fever, WBC). ID is following. 01/28 BC: Staph Aureus. Sputum cx: MRSA 01/29 & 02/03. Follow up on Sputum cx from 02/07 Influenza screening negative on 01/28, Strep pneumonia and Legionella urinary Ag negative on 01/29 BC from 02/02: NGTD On Lasix 40mg Q8. Electrolytes replacement per protocol. GI/DVT prophylaxis. on Pepcid 20 mg q.12 and Lovenox 40 mg subcutaneous daily. Continue treatment plan
[2018-02-08] MEDS: Potassium Chlor 20 mEq Premix 20 MEQ/100 ML PIGGYBACK IV.SIG PRN ×4 (09:42→18:53)
[2018-02-08] MEDS: Sodium Chloride 0.9% 2 ML Flush BID IV.FLUSH SCH ×2 (09:43→21:29)
[2018-02-08] MEDS: guaiFENesin 600 MG ER Tablet PO SCH ×2 (09:43→21:29)
[2018-02-08] MEDS: Famotidine 20 MG Tablet PO SCH ×2 (09:43→21:29)
[2018-02-08] MEDS: Carvedilol 12.5 MG Tablet PO SCH ×2 (09:43→21:29)
--- NOTE | 2018-02-08 10:04 | P.PNCC ---
Subjective Subjective Remarks/Hospital Course: This is a 32-year-old female that presented to the emergency department last evening. Per report reviewed the patient had complaints myalgias, nausea, vomiting diarrhea in conjunction fever and chills per review of the records the patient went to an urgent care center on and was diagnosed with the flu and subsequently sent home the patient stated her symptoms worsen so she presented to [facility] ED on 2017. Upon presentation imaging and laboratory studies were performed that initially revealed a significant leukocytosis with a WBC count of 20.8, hypokalemia and a chest x-ray revealing extensive bilateral airspace disease. The patient was bolused with IV fluids, and received prophylactic antibiotics, blood cultures were obtained. The patient was admitted to ICU at [place] and ICU was consulted on 01/28/2018 at 2059 ,and was placed on BiPAP overnight with worsening symptomatology. Respiratory rate throughout the night was noted to be in the high 30s-50, with O2 saturation 87-91 % throughout the night. Upon my arrival this am, I examined the patient at 0615, and upon my evaluation this a.m. was noted to be extremely dyspneic, unable to speak secondary to extreme dyspnea, respiratory rate 48-50, and O2 sat 86-87%. A stat ABG was obtained PaO2 was noted to be 84, on 100%, and the patient kept stating she could not breathe. The patient was emergently intubated x1 attempt. Visually O2 saturation remained in the mid 80s-88 % on PEEP 12, FIO2 of 100%, with a slightly extended I- time. A stat ABG was performed PaO2 was noted to be 72, ventilator adjustments continued to optimize oxygenation. Emergent A-line was placed for frequent blood sampling, to evaluate oxygenation. The patient was noted to be in a sinus tach the patient was bolused with additional IV fluids 2 L and placed on sedation, to include, Versed , propofol, fentanyl infusions. The patient's past medical history is significant for hepatitis C, borderline personality disorder Funes acted 2017 secondary to chronic anxiety per records reviewed the patient takes Klonopin. 01/30: The patient's oxygenation moved by midday 01/29, and the patient was transferred via ambulance to [facility]. On her arrival the patient had a CVL placed, echo performed peer and the patient was placed on prone bed for prone positioning. Upon prone positioning, the patient's O2 saturation improved. FiO2 currently is at 60% when patient is in prone position with O2 sat of 100%. The patient remains deeply sedated with neuromuscular blockade Nemex for prone positioning. Urine output is equivalent to 1 cc/kg/h the patient was noted to have a metabolic acidosis this a.m., 50 mEq of sodium bicarbonate was given, IV fluids changed to one half normal saline at 100 cc/ hour. Noted lactic acidemia now resolved. One bottle blood culture showed gram -positive cocci. Discussed with patient's mother and permission granted to obtain HIV labs, deemed medically necessary per ID Dr. Carballo. 01/31: Decreasing FiO2 requirements at this time. Chest x-ray suggestive of interstitial edema, Lasix 40 mg x1 dose provided. IV fluids decreased to 42 cc/ hr . Secondary to prone positioning StatLock removed and central line sutured in place, to prevent possible dislodgment and prone position. Cultures revealed sputum MRSA, and blood gram-positive cocci. HIV testing labs negative. 02/01: Noted improvement clinically and respiratory status O2 requirements have been decreased 0.45% and a PEEP of 8. Patient noted to have a positive fluid balance was diuresed yesterday, chest x-ray shows persistent pulmonary edema Lasix dosing increased to twice daily IV fluids have now been discontinued. Noted thrombocytopenia, heparin platelet antibody has been ordered. Colitis currently being replaced. 02/02: fio2 continues to improve. supinated today and remains stable x 8 hrs. can likely transition off RotaProne bed today. continues to be very volume overloaded, although adequate start to diuresis yesterday. 02/03: The patient was removed from rota prone bread at 1800 yesterday. The patient continues to improve oxygenation. Versed continually being weaned down in anticipation for CPAP trials. Dietary consult has been initiated for tube feeds. 02/04: Afebrile. the patient remained on CPAP trials throughout yesterday afternoon, placed back on a rate last evening. CPAP trials have been reinitiated this a.m. SBT parameters currently being obtain ABG within normal limits plan for possible extubation today 02/05 Tolerated extubation yesterday and remains on 5 L nasal cannula. Has passed bedside swallow evaluation and is requesting to advance diet. Temp max 100.5. Sputum culture 02/03 pending. On cefepime, azithro and vanc per ID. Has been diuresed aggressively. Creatinine normal, alkalosis. Remove invasive lines and Garcia today. Out of bed 02/06 Alkalosis has given way to bicarb of 18.4 following diamox. She is on 6 L NC but is tachypneic, more dyspneic today. +thick sputum production and respiratory muscle weakness are contributing. Guafenesin/nebs/EZPAP. Bipap to support now. May require reintubation, but trying to avoid. Subjective: 02/07 On and off Bipap. She is very weak with critical illness polyneuropathy and I believe this is contributing to her ongoing respiratory issues. Appreciate staff assistance with aggressive pulmonary toilet. Bibasilar infiltrates have persisted. Antibiotics adjusted to zosyn/linezolid yesterday per ID. No fever. She does have uptrending leukocytosis. Will d/c steroids to effort to mitigate weakness. Family and patient aware she may require intubation (which could very well lead to trach due to her weakness). 02/08: Remains very weak from critical illness neuropathy and myopathy. She is requiring on and off BiPAP still. Very coarse rhonchi bilaterally. Chest x- ray shows some increase in upper lobe infiltrates. Pt/Ot. Plan bedside ultrasound to evaluate right effusion Objective Vital Signs / I&O: Vital Signs 02/07/18 10:00 02/07/18 11:00 02/07/18 11:02 Temperature Pulse Rate 99 H 96 H 95 H Respiratory Rate 26 H Blood Pressure 121/64 113/60 Pulse Oximetry 92 L 92 L 02/07/18 12:00 02/07/18 13:00 02/07/18 13:43 Temperature 99.5 F Pulse Rate 96 H 100 H 98 H Respiratory Rate Blood Pressure 115/61 101/67 Pulse Oximetry 97 99 100 02/07/18 14:00 02/07/18 15:00 02/07/18 16:00 Temperature Pulse Rate 99 H 92 H 91 H Respiratory Rate Blood Pressure 97/59 L 108/57 L 103/59 L Pulse Oximetry 97 95 95 02/07/18 17:00 02/07/18 17:52 02/07/18 18:00 Temperature 98.2 F Pulse Rate 83 90 90 Respiratory Rate 18 Blood Pressure 117/65 108/74 Pulse Oximetry 92 L 87 L 02/07/18 19:00 02/07/18 20:00 02/07/18 21:00 Temperature 99.1 F Pulse Rate 91 H 90 94 H Respiratory Rate Blood Pressure 109/62 109/57 L 108/65 Pulse Oximetry 98 99 97 02/07/18 21:16 02/07/18 21:21 02/07/18 21:25 Temperature Pulse Rate 105 H 103 H Respiratory Rate 23 Blood Pressure 115/69 Pulse Oximetry 94 L 93 L 94 L 02/07/18 22:00 02/07/18 23:00 02/08/18 00:00 Temperature 98.7 F Pulse Rate 94 H 102 H 94 H Respiratory Rate Blood Pressure Pulse Oximetry 99 98 94 L 02/08/18 00:09 02/08/18 01:00 02/08/18 01:32 Temperature Pulse Rate 95 H 98 H Respiratory Rate Blood Pressure 98/53 L Pulse Oximetry 95 100 100 02/08/18 02:00 02/08/18 03:00 02/08/18 03:57 Temperature Pulse Rate 102 H 101 H 104 H Respiratory Rate Blood Pressure 103/55 L Pulse Oximetry 96 98 94 L 02/08/18 04:00 02/08/18 05:00 02/08/18 06:00 Temperature 98.7 F Pulse Rate 104 H 88 88 Respiratory Rate Blood Pressure Pulse Oximetry 94 L 98 02/08/18 08:05 Temperature Pulse Rate Respiratory Rate Blood Pressure Pulse Oximetry 97 Intake & Output 02/07/18 02/08/18 02/08/18 18:59 06:59 18:59 Intake Total 700 / 700 1185 / 1185 Output Total 1700 / 1700 1200 / 1200 Balance -1000 / -1000 -15 / -15 Weight 61.5 kg Intake: IV 100 / 100 885 / 885 Zyvox 600 mg Premix 300 ML @ 595 / 595 300 mls/hr IV.SIG Q12H BENOIT Rx#: [id number] Zosyn 4.5 GM Premix 4.5 gm In 100 / 100 290 / 290 100 ml @ 200 mls/hr IV.SIG Q6H BENOIT Rx#:[id number] Oral 600 / 600 300 / 300 Output: Urine 1700 / 1700 1200 / 1200 Other: Date of Last Bowel Movement 02/03/18 02/03/18 # Emeses 1 Result Diagrams: 02/08/18 05:24 12/31/18 05:24 Objective Remarks: GENERAL: Young female, sitting up in bed, alert and conversant. Tachypneic. SKIN: Warm and dry. HEAD: Atraumatic. Normocephalic. EYES: Pupils equal and round. No scleral icterus. No injection or drainage. ENT: Currently on facemask NECK: Trachea midline. No JVD. CARDIOVASCULAR: Tachycardic rate, regular rhythm. sinus on the monitor. RESPIRATORY: Some accessory muscle use. Rales in right base. Scattered extensive bilateral rhonchi. No wheeze. GASTROINTESTINAL: Abdomen soft, non-tender, nondistended. Bowel sounds present. MUSCULOSKELETAL: Extremities without clubbing, cyanosis, trace edema. No obvious deformities. Bruising noted on right forehead left great toe 2/2 rota prone bed positioning. Also skin breakdown medial lower legs bilaterally. NEUROLOGICAL: Awake, oriented to person, place, circumstance. She does move all extremities to command. Hip flexor 3/5, hamstring 2/5, wiggles toes. weak auto mechanic supervisor strength bilaterally, deltoids 3/5, biceps 2/5. Procedures: 01/31: Sutured right IJ, StatLock removed. Assessment and Plan - Problem List (1) Acute respiratory failure with hypoxia and hypercarbia Code(s): J96.01 - Acute respiratory failure with hypoxia; J96.02 - Acute respiratory failure with hypercapnia Status: Resolved (2) Hepatitis Code(s): K75.9 - Inflammatory liver disease, unspecified Status: Acute (3) Bilateral pneumonia Code(s): J18.9 - Pneumonia, unspecified organism Status: Acute (4) Sepsis Code(s): A41.9 - Sepsis, unspecified organism Status: Acute (5) Hypoxia Code(s): R09.02 - Hypoxemia Status: Acute (6) Leukocytosis Code(s): D72.829 - Elevated white blood cell count, unspecified Status: Acute (7) Hyperglycemia Code(s): R73.9 - Hyperglycemia, unspecified Status: Acute (8) Thrombocytopenia Code(s): D69.6 - Thrombocytopenia, unspecified Status: Acute (9) Polyneuropathy associated with critical illness Code(s): G62.81 - Critical illness polyneuropathy Status: Acute - Assessment and Plan Plan: Plan by systems: Neurologic: Anxiety disorder Borderline personality disorder Substance use disordercocaine abuse Acetaminophen 650 mg every 6 hours as needed for temperature greater than 101.0 01/28 urine drug screen-positive for cocaine Critical illness polyneuropathy OT consult. Daily PT. Out of bed to chair. Respiratory: Acute hypoxemic and hypercarbic respiratory failure Bilateral pneumonia Tobacco use disorder ARDS bilateral pulmonary edema- severe Duoneb q4/EZPAP. Guafenesin 600 bid. suction prn. Resp muscle weakness contributing, supporting resp effort with BIPAP. D/cd solumedrol. Pulmonology following. Legionella, pneumococcal urine antigens-neg Influenza antigens A/Bneg. 01/29-intubated 7.5 ETT 22 at the lip, Extubated 02/04 Dr. Syed following. On Lasix 40 q8, significant net negative, decreased to q12. Cardiovascular: Sinus tachycardia Maintain MAP > 65mmHg 01/28 Echo EF 40-45%, moderately dilated left ventricle, LAD infarct vs. Taktsubo cardiomyopathy, no vegetations noted PAP 42 Coreg 12.5 bid[address] ASA [address] Mendoza evaluated, plan for stress when stabilized and out of ICU. Renal/FEN: Removed Garcia 02/05. KCL 20 mEq po bid while on Lasix. Monitoring creatinine. GI: Hepatitis C Transaminitis Metabolic alkalosis resolved. Hypernatremia - Related to diuresis. Patient should self-correct now that diet advanced. Hypokalemia Regular diet. Ensure tid. Monitor CMP Electrolyte replacement per ICU protocol Heme/ID: MRSA Pneumonia Severe sepsis Leukocytosis-resolved ARDS Hepatitis C AB positive - RNA viral load pending. Thrombocytopenia 01/28-Legionella, mycoplasma, pneumococcal antigens-negative 01/28 sputum culture-negative Viral respiratory PCR negative. ID consulted-Dr. Carballo following. On zosyn, linezolid per ID. 01/28 Blood MRSA. Subsequent Blood culture 02/02 NGTD. HIV- negative, CD4 185 F/U HCV PCR 02/02 Heparin platelet antibody-negative Endocrine: Hyperglycemia of critical illness No longer requiring insulin. Prophylaxis: GI Prophylaxis famotidine DVT Prophylaxis -- SCDs Lines: PIV. D/c R IJ CVL (01/29-02/05 , Right rad arterial line d/c'd 02.05. Arterial line left radial (dc'd 02/01), Mother and grandmother updated 02/[address] Moreno and multiple questions answered. Level 3 follow-up (3) Bilateral pneumonia Qualifiers: Pneumonia type: due to unspecified organism Lung location: unspecified part of lung Qualified Code(s): J18.9 - Pneumonia, unspecified organism (4) Sepsis Qualifiers: Sepsis type: sepsis due to unspecified organism Qualified Code(s): A41.9 - Sepsis, unspecified organism (6) Leukocytosis Qualifiers: Leukocytosis type: unspecified Qualified Code(s): D72.829 - Elevated white blood cell count, unspecified
--- NOTE | 2018-02-08 13:56 | P.CONVS ---
History of Present Illness Service: Vascular surgery Consult date: 02/08/18 Primary Care Provider: Con Guerrero DO Chief Complaint: Right great toe gangrene History of Present Illness: 32-year-old female with past medical history of IV drug abuse. She was on methadone and the last time she used was 6 months ago. She was admitted to the hospital with bilateral pneumonia, sepsis, acute respiratory failure requiring intubation and mechanical ventilation. She was on pressors support. She was noted to have right first toe gangrene that was noted by staff today. There is gangrene was not present on the initial presentation. She denies any history of claudication or rest pain. Review of Systems All other systems reviewed negative except as stated in HPI [facility] - History History Provided By: Patient - Medical History Medical History: Medical History (Last Reviewed 02/03/18 @ 06:33 by Alysa Lo) History of MRSA infection Onset Date: ~01/29/18 Patient denies medical problems - Surgical History Surgical History: Surgical History (Last Reviewed 02/03/18 @ 06:33 by Alysa Lo) No history of previous surgery - Tobacco History Tobacco Use In Past 30 Days: Yes Smoking Status: Current every day smoker Tobacco Type: Cigarettes - Alcohol History How Often Do You Have a Drink Containing Alcohol: Never - Substance Use History Substance History: No History of Abuse - Travel History Recent Travel in the [place] Within the Last 8 Weeks: No Recent Travel Out of the Country Within the Last 8 Weeks: No - Immunization History Tetanus Immunization: Unable to Assess Hx Influenza Vaccine This Season: Unable to Assess Medications and Allergies Active Medications: Active Medications Albuterol (Duoneb Neb (Prn)) 1 ampul NEB Q2HR NEB PRN PRN Reason: DYSPNEA Last Admin: 02/07/18 21:16 Dose: 1 ampul Albuterol (Albuterol Neb (Prn)) 2.5 mg NEB Q2HR NEB PRN PRN Reason: WHEEZING Last Admin: 02/07/18 17:51 Dose: 2.5 mg Albuterol (Duoneb Neb (Chanda)) 1 ampul NEB Q4HR NEB CHANDA Last Admin: 02/08/18 10:58 Dose: 1 ampul Aspirin (Ecotrin) 81 mg PO DAILY CHANDA Last Admin: 02/08/18 09:43 Dose: 81 mg Carvedilol (Coreg) 12.5 mg PO BID CHANDA Last Admin: 02/08/18 09:43 Dose: 12.5 mg Chlorhexidine Gluconate (Peridex 0.12% Oral Kit) 15 ml OROPHARYNG BID@0800, 1999 [facility] Last Admin: 02/07/18 21:24 Dose: Not Given Enalapril Maleate (Vasotec) 10 mg PO BID [facility] Last Admin: 02/07/18 21:36 Dose: 10 mg Enoxaparin Sodium (Lovenox Inj) 40 mg SQ Q24H [facility] Last Admin: 02/07/18 21:36 Dose: 40 mg Famotidine (Pepcid) 20 mg PO BID [facility] Last Admin: 02/08/18 09:43 Dose: 20 mg Furosemide (Lasix Inj) 40 mg IV.PUSH Q8H [facility] Last Admin: 02/08/18 09:43 Dose: 40 mg Guaifenesin (Mucinex Er) 600 mg PO BID [facility] Last Admin: 02/08/18 09:43 Dose: 600 mg Magnesium Sulfate 2 gm/ Sodium (Chloride) 100 mls @ 50 mls/hr IV.SIG UNSCH PRN PRN Reason: For Magnesium 1.2 - 1.6 mg/dL Last Infusion: 01/30/18 00:12 Dose: Infused Potassium Chloride (Kcl 40 Meq Premix Inj) 40 meq in 100 mls @ 25 mls/hr IV.SIG Q2H PRN PRN Reason: For Potassium 2.8 - 3.2 mEq/L Last Infusion: 02/03/18 08:25 Dose: Infused Potassium Chloride (Kcl 20 Meq Premix Inj) 20 meq in 100 mls @ 50 mls/hr IV.SIG Q2H PRN PRN Reason: For Potassium 3.3 - 3.5 mEq/L Potassium Chloride (Kcl 40 Meq Premix Inj) 40 meq in 100 mls @ 25 mls/hr IV.SIG UNSCH PRN PRN Reason: For Potassium 3.3 - 3.5 mEq/L Last Infusion: 02/04/18 07:23 Dose: Infused Potassium Chloride (Kcl 20 Meq Premix Inj) 20 meq in 100 mls @ 50 mls/hr IV.SIG Q2H PRN PRN Reason: For Potassium 2.8 - 3.2 mEq/L Last Admin: 02/08/18 09:42 Dose: 50 mls/hr Magnesium Sulfate 4 gm/ Sodium (Chloride) 100 mls @ 50 mls/hr IV.SIG UNSCH PRN PRN Reason: For Magnesium 0.9 - 1.1 mg/dL Potassium Phosphate 30 mmol/ (Sodium Chloride) 260 mls @ 42 mls/hr IV.SIG UNSCH PRN PRN Reason: SEE LABEL COMMENTS Last Infusion: 02/03/18 14:34 Dose: Infused Sodium Glycerophosphate 30 (mmol/ Sodium Chloride) 280 mls @ 42 mls/hr IV.SIG UNSCH PRN PRN Reason: For Phosphorus < 2.5 mg/dL Last Infusion: 02/04/18 17:49 Dose: Infused Linezolid (Zyvox 600 Mg Premix) 300 mls @ 300 mls/hr IV.SIG Q12H CHANDA Last Infusion: 02/08/18 03:10 Dose: Infused Piperacillin/Tazobactam/Dextrose (Zosyn 4.5 Gm Premix) 4.5 gm in 100 mls @ 200 mls/hr IV.SIG Q6H CHANDA Last Admin: 02/08/18 09:43 Dose: 100 mls/hr Lorazepam (Ativan Inj) 0.25 mg IV.PUSH Q4H PRN PRN Reason: AGITATION OR ANXIETY Last Admin: 02/08/18 09:46 Dose: 0.25 mg Magnesium Oxide (Mag-Ox) 800 mg PO UNSCH PRN PRN Reason: For Magnesium 1.2 - 1.6 mg/dL Last Admin: 02/07/18 21:37 Dose: 800 mg Miscellaneous Medication () 1 each OROPHARYNG 0000,0400,1200,1600 [facility] Last Admin: 02/08/18 04:37 Dose: Not Given Potassium Bicarb/Potassium Chloride (K-Lyte Cl Eff) 50 meq PO UNSCH PRN PRN Reason: For Potassium 3.3 - 3.5 mEq/L Last Admin: 02/05/18 13:35 Dose: 50 meq Potassium Chloride (K-Dur) 20 meq PO BID [facility] Last Admin: 02/08/18 09:43 Dose: 20 meq Potassium Phosphate (K-Phos Original) 2,000 mg PO Q4H PRN PRN Reason: Phosphorus Less Than 2.5 mg/dL Last Admin: 02/06/18 22:27 Dose: 2,000 mg Potassium Phosphate (K-Phos Original) 2,000 mg PO UNSCH PRN PRN Reason: SEE LABEL COMMENTS Sodium Chloride (Ns Flush) 2 ml IV.FLUSH BID CHANDA Last Admin: 02/08/18 09:43 Dose: 2 ml Sodium Chloride (Ns Flush) 2 ml IV.FLUSH PRN PRN PRN Reason: FLUSH AFTER USING IV ACCESS Allergies Allergy/AdvReac Type Severity Reaction Status Date / Time Sulfa (Sulfonamide Allergy Intermediate Verified 05/14/17 22:25 Antibiotics) Home Medications Medication Instructions Recorded Confirmed Type No Known Home Medications 01/28/18 01/28/18 History Physical Exam Vital Signs / I&O: Vital Signs 02/07/18 14:00 02/07/18 15:00 02/07/18 16:00 Temperature Pulse Rate 99 H 92 H 91 H Respiratory Rate Blood Pressure 97/59 L 108/57 L 103/59 L Pulse Oximetry 97 95 95 02/07/18 17:00 02/07/18 17:52 02/07/18 18:00 Temperature 98.2 F Pulse Rate 83 90 90 Respiratory Rate 18 Blood Pressure 117/65 108/74 Pulse Oximetry 92 L 87 L 02/07/18 19:00 02/07/18 20:00 02/07/18 21:00 Temperature 99.1 F Pulse Rate 91 H 90 94 H Respiratory Rate Blood Pressure 109/62 109/57 L 108/65 Pulse Oximetry 98 99 97 02/07/18 21:16 02/07/18 21:21 02/07/18 21:25 Temperature Pulse Rate 105 H 103 H Respiratory Rate 23 Blood Pressure 115/69 Pulse Oximetry 94 L 93 L 94 L 02/07/18 22:00 02/07/18 23:00 02/08/18 00:00 Temperature 98.7 F Pulse Rate 94 H 102 H 94 H Respiratory Rate Blood Pressure Pulse Oximetry 99 98 94 L 02/08/18 00:09 02/08/18 01:00 02/08/18 01:32 Temperature Pulse Rate 95 H 98 H Respiratory Rate Blood Pressure 98/53 L Pulse Oximetry 95 100 100 02/08/18 02:00 02/08/18 03:00 02/08/18 03:57 Temperature Pulse Rate 102 H 101 H 104 H Respiratory Rate Blood Pressure 103/55 L Pulse Oximetry 96 98 94 L 02/08/18 04:00 02/08/18 05:00 02/08/18 06:00 Temperature 98.7 F Pulse Rate 104 H 88 88 Respiratory Rate Blood Pressure Pulse Oximetry 94 L 98 02/08/18 07:00 02/08/18 08:00 02/08/18 08:05 Temperature 99.5 F Pulse Rate 87 73 Respiratory Rate Blood Pressure Pulse Oximetry 95 97 97 02/08/18 09:00 02/08/18 09:38 02/08/18 10:00 Temperature Pulse Rate 78 95 H 97 H Respiratory Rate Blood Pressure 111/72 114/58 L Pulse Oximetry 97 96 96 02/08/18 10:58 02/08/18 11:00 02/08/18 12:00 Temperature 99.0 F Pulse Rate 90 89 93 H Respiratory Rate 20 Blood Pressure 107/53 L 99/51 L Pulse Oximetry 97 95 02/08/18 12:36 02/08/18 13:00 Temperature Pulse Rate 92 H Respiratory Rate Blood Pressure 106/55 L Pulse Oximetry 95 95 Intake & Output 02/07/18 02/08/18 02/08/18 18:59 06:59 18:59 Intake Total 700 / 700 1185 / 1185 Output Total 1700 / 1700 1200 / 1200 Balance -1000 / -1000 -15 / -15 Weight 61.5 kg Intake: IV 100 / 100 885 / 885 Zyvox 600 mg Premix 300 ML @ 595 / 595 300 mls/hr IV.SIG Q12H CHANDA Rx#: [id number] Zosyn 4.5 GM Premix 4.5 gm In 100 / 100 290 / 290 100 ml @ 200 mls/hr IV.SIG Q6H CHANDA Rx#:[id number] Oral 600 / 600 300 / 300 Output: Urine 1700 / 1700 1200 / 1200 Other: Date of Last Bowel Movement 02/03/18 02/03/18 02/03/18 # Emeses 1 Neuro: Alert awake oriented x3 HEENT: Normocephalic atraumatic Neck: Supple Heart: S1-S2 Lungs: Clear to auscultation bilateral Abdomen: Soft nontender nondistended Vascular: +1 palpable dorsalis pedis, posterior tibial pulses bilaterally Right first toe ecchymosis with overlying blister. Laboratory Results - last 24 hr 02/07/18 02/07/18 02/08/18 17:38 21:43 05:24 WBC 18.6 H RBC 3.45 L Hgb 12.3 Hct 35.9 MCV 104.0 H MCH 35.7 H MCHC 34.3 RDW 17.8 H Plt Count 242 MPV 10.7 Sodium Potassium Chloride Carbon Dioxide Anion Gap BUN Creatinine Estimated GFR POC Glucose 165 H 104 Random Glucose Calcium Phosphorus Magnesium 02/08/18 05:24 WBC RBC Hgb Hct MCV MCH MCHC RDW Plt Count MPV Sodium 138 Potassium 3.2 L Chloride 99 Carbon Dioxide 28.5 Anion Gap 11 BUN 22 H Creatinine 0.58 Estimated GFR Greater than 89 POC Glucose Random Glucose 101 Calcium 8.1 L Phosphorus 2.5 Magnesium 1.7 Microbiology 02/07/18 13:13 Aerobic Blood Culture - Preliminary Blood - Peripheral No growth in 1 day Anaerobic Blood Culture - Preliminary No growth in 1 day 02/07/18 13:04 Aerobic Blood Culture - Preliminary Blood - Peripheral No growth in 1 day Anaerobic Blood Culture - Preliminary No growth in 1 day 02/07/18 10:00 Gram Stain - Final Sputum - Expectorated Sputum 02/02/18 03:40 Aerobic Blood Culture - Final Blood - Peripheral No growth in 5 days Anaerobic Blood Culture - Final No growth in 5 days 02/02/18 03:05 Aerobic Blood Culture - Final Blood - Peripheral No growth in 5 days Anaerobic Blood Culture - Final No growth in 5 days Impressions Chest X-Ray 02/07/18 00:00 CONCLUSION: Slight improvement in bilateral airspace disease and right pleural effusion over the last day. Venous Doppler Study 02/07/18 13:15 CONCLUSION: The study is negative for bilateral lower extremity deep venous thrombosis. Chest X-Ray 02/08/18 00:00 CONCLUSION: 1. Stable right lower lobe airspace disease and probable trace pleural effusion. 2. Improved minimal residual patchy airspace disease in the left lower lung zone. 3. Increased ill-defined parenchymal opacity in the right upper lung zone which may reflect atelectasis. Cannot exclude developing new airspace disease. Assessment and Plan - Assessment (1) Gangrene of toe Code(s): I96 - Gangrene, not elsewhere classified Status: Acute - Plan Small area of gangrene with an overlying blister involving the right first toe. No evidence of acute limb ischemia. The most likely etiology is iatrogenic due to vasopressors use. Other etiologies include atheroembolic event due to atherosclerosis disease. Patient has palpable pedal pulses which confirms adequate blood supply. I will obtain a CT angiography with runoff during this hospitalization. Thank you for allowing me to participate in this patient care, if you have any questions please do not hesitate to call my cell phone Henri Todd MD [phone]
[2018-02-08] MEDS: Chlorhexidine 0.12% Oral Kit 15 ML UDC OROPHARYNG SCH ×2 (14:47→21:28)
--- NOTE | 2018-02-08 14:49 | P.PNID ---
Subjective Remarks: Notes reviewed. Mom at bedside. Patient is on O2 via nasal cannula. 6 liters. Tonight she was on 70% O2 because of low oxygen saturation. Awake and alert. Says she feels better. Afebrile. Chest x-ray showing improvement. 32-year-old white female who presented to the emergency department yesterday evening with respiratory symptoms. Emergency department report stated that the patient developed symptoms about a week ago consisting of body aches, nausea, vomiting, diarrhea, fever, chills, and sweats. She was seen at an urgent care center about a week ago and was diagnosed with flu. She subsequently developed a sore throat and pain on swallowing and loss of the voice as well as nonproductive cough. Her energy level is also reported to be very low. The patient was seen in the emergency department and temperature was 98.6, heart rate was elevated at 122, and white count was elevated at 20.8. She was put on nonrebreather mask and oxygen saturation was noted to be between 88% and 92%. The patient was subsequently intubated. Antibiotics: Zosyn zyvox Past Medical History: PAST MEDICAL HISTORY: Reportedly negative. The patient has been evaluated for psychiatric adjustment disorder. Allergies/Adverse Reactions: Allergies Sulfa (Sulfonamide Antibiotics) Allergy (Intermediate, Verified 05/14/17 22:25) PT STATES INCREASES HER TEMP Objective Vital Signs 02/07/18 15:00 02/07/18 16:00 02/07/18 17:00 Temperature Pulse Rate 92 H 91 H 83 Respiratory Rate Blood Pressure 108/57 L 103/59 L 117/65 Pulse Oximetry 95 95 92 L 02/07/18 17:52 02/07/18 18:00 02/07/18 19:00 Temperature 98.2 F Pulse Rate 90 90 91 H Respiratory Rate 18 Blood Pressure 108/74 109/62 Pulse Oximetry 87 L 98 02/07/18 20:00 02/07/18 21:00 02/07/18 21:16 Temperature 99.1 F Pulse Rate 90 94 H 105 H Respiratory Rate 23 Blood Pressure 109/57 L 108/65 Pulse Oximetry 99 97 94 L 02/07/18 21:21 02/07/18 21:25 02/07/18 22:00 Temperature Pulse Rate 103 H 94 H Respiratory Rate Blood Pressure 115/69 Pulse Oximetry 93 L 94 L 99 02/07/18 23:00 02/08/18 00:00 02/08/18 00:09 Temperature 98.7 F Pulse Rate 102 H 94 H Respiratory Rate Blood Pressure Pulse Oximetry 98 94 L 95 02/08/18 01:00 02/08/18 01:32 02/08/18 02:00 Temperature Pulse Rate 95 H 98 H 102 H Respiratory Rate Blood Pressure 98/53 L Pulse Oximetry 100 100 96 02/08/18 03:00 02/08/18 03:57 02/08/18 04:00 Temperature 98.7 F Pulse Rate 101 H 104 H 104 H Respiratory Rate Blood Pressure 103/55 L Pulse Oximetry 98 94 L 94 L 02/08/18 05:00 02/08/18 06:00 02/08/18 07:00 Temperature Pulse Rate 88 88 87 Respiratory Rate Blood Pressure Pulse Oximetry 98 95 02/08/18 08:00 02/08/18 08:05 02/08/18 09:00 Temperature 99.5 F Pulse Rate 73 78 Respiratory Rate Blood Pressure Pulse Oximetry 97 97 97 02/08/18 09:38 02/08/18 10:00 02/08/18 10:58 Temperature Pulse Rate 95 H 97 H 90 Respiratory Rate 20 Blood Pressure 111/72 114/58 L Pulse Oximetry 96 96 02/08/18 11:00 02/08/18 12:00 02/08/18 12:36 Temperature 99.0 F Pulse Rate 89 93 H Respiratory Rate Blood Pressure 107/53 L 99/51 L Pulse Oximetry 97 95 95 02/08/18 13:00 Temperature Pulse Rate 92 H Respiratory Rate Blood Pressure 106/55 L Pulse Oximetry 95 Intake & Output 02/07/18 02/08/18 02/08/18 18:59 06:59 18:59 Intake Total 700 / 700 1185 / 1185 Output Total 1700 / 1700 1200 / 1200 Balance -1000 / -1000 -15 / -15 Weight 61.5 kg Intake: IV 100 / 100 885 / 885 Zyvox 600 mg Premix 300 ML @ 595 / 595 300 mls/hr IV.SIG Q12H [facility]ENO[facility] Rx#: [id number] Zosyn 4.5 GM Premix 4.5 gm In 100 / 100 290 / 290 100 ml @ 200 mls/hr IV.SIG Q6H [facility]ENO[facility] Rx#:[id number] Oral 600 / 600 300 / 300 Output: Urine 1700 / 1700 1200 / 1200 Other: Date of Last Bowel Movement 02/03/18 02/03/18 02/03/18 # Emeses 1 02/07/18 13:13 Blood - Peripheral Aerobic Blood Culture - Preliminary No growth in 1 day 02/07/18 13:13 Blood - Peripheral Anaerobic Blood Culture - Preliminary No growth in 1 day 02/07/18 13:04 Blood - Peripheral Aerobic Blood Culture - Preliminary No growth in 1 day 02/07/18 13:04 Blood - Peripheral Anaerobic Blood Culture - Preliminary No growth in 1 day 02/07/18 10:00 Sputum - Expectorated Sputum Gram Stain - Final 02/07/18 10:00 Sputum - Expectorated Sputum Sputum Culture - Pending 02/02/18 03:40 Blood - Peripheral Aerobic Blood Culture - Final No growth in 5 days 02/02/18 03:40 Blood - Peripheral Anaerobic Blood Culture - Final No growth in 5 days 02/02/18 03:05 Blood - Peripheral Aerobic Blood Culture - Final No growth in 5 days 02/02/18 03:05 Blood - Peripheral Anaerobic Blood Culture - Final No growth in 5 days 02/03/18 17:45 Sputum - Endotracheal Gram Stain - Final 02/03/18 17:45 Sputum - Endotracheal Sputum Culture - Final S. aureus MRSA Lab - Hematology Results 02/07/18 02/08/18 02:50 05:24 WBC 19.3 H 18.6 H RBC 3.97 L 3.45 L Hgb 14.1 D 12.3 Hct 41.2 35.9 MCV 103.7 H 104.0 H MCH 35.6 H 35.7 H MCHC 34.3 34.3 RDW 18.5 H 17.8 H Plt Count 241 D 242 MPV 10.6 10.7 Lab - Chemistry Results 02/06/18 02/06/18 02/07/18 17:41 21:36 02:50 Sodium 139 Potassium 3.6 Chloride 103 Carbon Dioxide 26.1 Anion Gap 10 BUN 20 H Creatinine 0.56 Estimated GFR Greater than 89 POC Glucose 161 H 117 H Random Glucose 152 H Calcium 8.3 L Phosphorus 3.3 Magnesium 1.6 02/07/18 02/07/18 02/07/18 04:19 09:17 10:53 Sodium Potassium Chloride Carbon Dioxide Anion Gap BUN Creatinine Estimated GFR POC Glucose 140 H 133 H Random Glucose Calcium Phosphorus Magnesium 1.5 02/07/18 02/07/18 02/07/18 13:15 17:38 21:43 Sodium Potassium Chloride Carbon Dioxide Anion Gap BUN Creatinine Estimated GFR POC Glucose 152 H 165 H 104 Random Glucose Calcium Phosphorus Magnesium 02/08/18 05:24 Sodium 138 Potassium 3.2 L Chloride 99 Carbon Dioxide 28.5 Anion Gap 11 BUN 22 H Creatinine 0.58 Estimated GFR Greater than 89 POC Glucose Random Glucose 101 Calcium 8.1 L Phosphorus 2.5 Magnesium 1.7 Imaging: ITS Impressions Chest CT 01/28/18 18:20 CONCLUSION: Extensive bilateral airspace disease Abdomen X-Ray 02/03/18 00:37 CONCLUSION: 1. OG tube tip in the distal stomach near the duodenal bulb. Venous Doppler Study 02/07/18 13:15 CONCLUSION: The study is negative for bilateral lower extremity deep venous thrombosis. Chest X-Ray 02/08/18 00:00 CONCLUSION: 1. Stable right lower lobe airspace disease and probable trace pleural effusion. 2. Improved minimal residual patchy airspace disease in the left lower lung zone. 3. Increased ill-defined parenchymal opacity in the right upper lung zone which may reflect atelectasis. Cannot exclude developing new airspace disease. Physical Exam: GENERAL: Awake and alert. No acute distress. Looks a little drowsy. HEENT: Extraocular movements grossly intact. Pupils reactive to light. No icterus. NECK: No adenopathy or swelling. LUNGS: Coarse breath sounds. HEART: Normal S1 and S2, without audible murmurs, rubs, or gallops. ABDOMEN: Decreased bowel sounds. Soft, nontender. No palpable mass. EXTREMITIES: No clubbing. No cyanosis, trace edema.. SKIN: No rash. warm and moist. NEUROLOGIC: Nonfocal PSYCHIATRIC: Calm. Lines without evidence of infection. Assessment and Plan - Plan IMPRESSION: 1. Bilateral pneumonia. MRSA. 2. Bacteremia. Staph aureus. MSSA. 3. Hypoxia. 4. Acute respiratory failure. Extubated Respiratory status improved after she required high FiO2 yesterday. 5. Elevated liver function tests. Improved. 6. Leukocytosis. WBC still elevated. 7. ALLERGY TO SULFA. Appears stable today. RECOMMENDATIONS: 1. cont zosyn 2. cont linezolid 3. Follow Sputum clx 4. Monitor clinical status. maureen ROMERO
[2018-02-08] MEDS: Enoxaparin Inj 40 MG/0.4 ML Syringe SQ SCH (21:30)
[2018-02-09] MEDS: Oral Hygiene Kit OROPHARYNG SCH ×5 (01:05→23:09)
[2018-02-09] MEDS: Piperacil/Tazo 4.5 GM Premix 4.5 GM/100 ML BAG IV.SIG SCH ×4 (03:26→23:08)
--- NOTE | 2018-02-09 04:50 | XR ---
EXAM DATE: 02/09/2018 4:22 AM EST AGE/SEX: 32 years / Female INDICATIONS: Shortness of breath, possible pulmonary disease. CLINICAL DATA: This is the patient's subsequent encounter. Patient reports that signs and symptoms h ave been present for 2 weeks and indicates a pain score of Nonresponsive. MEDICAL/SURGICAL HISTORY: None. None. COMPARISON: [facility] [place], CHEST 1V SINGLE AP, 02/08/2018. . FINDINGS: The heart size is normal. This increased density at the bases bilaterally is also increased density i n the right lung. There is blunting of the right costophrenic angle. Left costophrenic angle is clear . CONCLUSION: Bibasilar and right upper lung areas of consolidation or atelectasis. Mild right pleural effusion. Electronically signed by: Lv Tesfaye MD Board Certified Radiologist 02/09/2018 4:49 AM EST
--- NOTE | 2018-02-09 09:20 | P.PNPL ---
Subjective Interval history: Patient is lying in bed in NAD. Afebrile. Physical Exam Vital signs: Vital Signs 02/08/18 09:38 02/08/18 10:00 02/08/18 10:58 Temperature Pulse Rate 95 H 97 H 90 Respiratory Rate 20 Blood Pressure 111/72 114/58 L Pulse Oximetry 96 96 02/08/18 11:00 02/08/18 12:00 02/08/18 12:36 Temperature 99.0 F Pulse Rate 89 93 H Respiratory Rate Blood Pressure 107/53 L 99/51 L Pulse Oximetry 97 95 95 02/08/18 13:00 02/08/18 14:00 02/08/18 15:00 Temperature Pulse Rate 92 H 85 93 H Respiratory Rate Blood Pressure 106/55 L 97/51 L 98/57 L Pulse Oximetry 95 99 97 02/08/18 15:58 02/08/18 16:00 02/08/18 17:00 Temperature 98.9 F Pulse Rate 88 89 89 Respiratory Rate 20 Blood Pressure 98/61 L Pulse Oximetry 95 93 L 02/08/18 17:01 02/08/18 18:00 02/08/18 19:54 Temperature Pulse Rate 91 H 88 83 Respiratory Rate 20 Blood Pressure 115/61 110/58 L Pulse Oximetry 94 L 02/08/18 19:55 02/08/18 20:00 02/08/18 22:00 Temperature 98.8 F Pulse Rate 87 88 Respiratory Rate 18 Blood Pressure 104/55 L Pulse Oximetry 96 95 02/08/18 23:56 02/09/18 00:00 02/09/18 02:00 Temperature 98.4 F Pulse Rate 87 89 85 Respiratory Rate 18 15 Blood Pressure 95/52 L Pulse Oximetry 02/09/18 03:57 02/09/18 04:00 02/09/18 06:00 Temperature 98.8 F Pulse Rate 85 88 81 Respiratory Rate 20 15 Blood Pressure 102/57 L Pulse Oximetry Intake & Output 02/08/18 02/09/18 02/09/18 18:59 06:59 18:59 Intake Total 1500 / 1500 1000 / 1000 Output Total 1950 / 1950 400 / 400 Balance -450 / -450 600 / 600 Weight 61.9 kg Intake: IV 800 / 800 600 / 600 Zyvox 600 mg Premix 300 ML @ 300 / 300 300 / 300 300 mls/hr IV.SIG Q12H [facility]ENOIT Rx#: [id number] Zosyn 4.5 GM Premix 4.5 gm In 200 / 200 200 / 200 100 ml @ 200 mls/hr IV.SIG Q6H [facility]ENOIT Rx#:[id number] KCl 20 mEq Premix Inj 20 meq In 300 / 300 100 / 100 100 ml @ 50 mls/hr IV.SIG Q2H PRN Rx#:[id number] Oral 700 / 700 400 / 400 Output: Urine 1950 / 1950 400 / 400 Other: Date of Last Bowel Movement 02/03/18 02/03/18 - Constitutional no acute distress - Routine HEENT Exam Head: Present: normocephalic, atraumatic Eye: Present: EOMI, PERRL, normal accommodation, conjunctivae pink ENT: Present: mucous membranes moist - Routine Neck Exam Present: supple, full ROM, trachea midline - Routine Respiratory Exam Present: CTA bilaterally - Routine Cardiovascular Exam Present: RRR, S1, S2 - Routine Abdominal Exam Present: soft, normoactive bowel sounds - Routine Extremities Exam Present: full ROM, pulses intact - Routine Skin Exam Present: intact, dry - Routine Neurological Exam Present: alert, oriented X3, CN II-XII intact - Urinary Catheter Management Indwelling Urethral Catheter Cath placed during this visit: yes Reason for continuing: Other continuation reason Insertion date: 01/29/18 Insertion time: 07:15 Assessment and Plan - Assessment (1) Acute respiratory failure with hypoxia and hypercarbia Code(s): J96.01 - Acute respiratory failure with hypoxia; J96.02 - Acute respiratory failure with hypercapnia Status: Resolved (2) Hepatitis Code(s): K75.9 - Inflammatory liver disease, unspecified Status: Acute (3) Bilateral pneumonia Code(s): J18.9 - Pneumonia, unspecified organism Status: Acute Qualifiers: Pneumonia type: due to unspecified organism Lung location: unspecified part of lung Qualified Code(s): J18.9 - Pneumonia, unspecified organism (4) Sepsis Code(s): A41.9 - Sepsis, unspecified organism Status: Acute Qualifiers: Sepsis type: sepsis due to unspecified organism Qualified Code(s): A41.9 - Sepsis, unspecified organism (5) Hypoxia Code(s): R09.02 - Hypoxemia Status: Acute (6) Leukocytosis Code(s): D72.829 - Elevated white blood cell count, unspecified Status: Acute Qualifiers: Leukocytosis type: unspecified Qualified Code(s): D72.829 - Elevated white blood cell count, unspecified (7) Hyperglycemia Code(s): R73.9 - Hyperglycemia, unspecified Status: Acute (8) Thrombocytopenia Code(s): D69.6 - Thrombocytopenia, unspecified Status: Acute (9) Polyneuropathy associated with critical illness Code(s): G62.81 - Critical illness polyneuropathy Status: Acute - Plan 1. Resp Insuff s/p Extubation 02/04 2. s/p ARDS 3. MRSA pneumonia. 4. Staphylococcus aureus bacteremia. 5. Hepatitis C. 6. Anemia. 7. Thrombocytopenia. 8. Leukocytosis Plan Continue to wean down oxygen as fabi and maintain sats >92%. Bronchodilators, IS BIPAP PRN CXR today: Bibasilar and right upper lung areas of consolidation or atelectasis. Mild right pleural effusion. Abx per ID -Zyvox, Zosyn. Monitor for signs of infections ( fever, WBC). ID is following. 01/28 BC: Staph Aureus. Sputum cx: MRSA 01/29 & 02/03, 02/07. Influenza screening negative on 01/28, Strep pneumonia and Legionella urinary Ag negative on 01/29 BC from 02/02: NGTD On Lasix 40mg Q8. Electrolytes replacement per protocol. GI/DVT prophylaxis. on Pepcid 20 mg q.12 and Lovenox 40 mg subcutaneous daily. Continue treatment plan
--- NOTE | 2018-02-09 09:29 | P.PNVS ---
Subjective Subjective/Hospital Course: no acute issues Objective Vital Signs / I&O: Vital Signs 02/08/18 09:38 02/08/18 10:00 02/08/18 10:58 Temperature Pulse Rate 95 H 97 H 90 Respiratory Rate 20 Blood Pressure 111/72 114/58 L Pulse Oximetry 96 96 02/08/18 11:00 02/08/18 12:00 02/08/18 12:36 Temperature 99.0 F Pulse Rate 89 93 H Respiratory Rate Blood Pressure 107/53 L 99/51 L Pulse Oximetry 97 95 95 02/08/18 13:00 02/08/18 14:00 02/08/18 15:00 Temperature Pulse Rate 92 H 85 93 H Respiratory Rate Blood Pressure 106/55 L 97/51 L 98/57 L Pulse Oximetry 95 99 97 02/08/18 15:58 02/08/18 16:00 02/08/18 17:00 Temperature 98.9 F Pulse Rate 88 89 89 Respiratory Rate 20 Blood Pressure 98/61 L Pulse Oximetry 95 93 L 02/08/18 17:01 02/08/18 18:00 02/08/18 19:54 Temperature Pulse Rate 91 H 88 83 Respiratory Rate 20 Blood Pressure 115/61 110/58 L Pulse Oximetry 94 L 02/08/18 19:55 02/08/18 20:00 02/08/18 22:00 Temperature 98.8 F Pulse Rate 87 88 Respiratory Rate 18 Blood Pressure 104/55 L Pulse Oximetry 96 95 02/08/18 23:56 02/09/18 00:00 02/09/18 02:00 Temperature 98.4 F Pulse Rate 87 89 85 Respiratory Rate 18 15 Blood Pressure 95/52 L Pulse Oximetry 02/09/18 03:57 02/09/18 04:00 02/09/18 06:00 Temperature 98.8 F Pulse Rate 85 88 81 Respiratory Rate 20 15 Blood Pressure 102/57 L Pulse Oximetry Intake & Output 02/08/18 02/09/18 02/09/18 18:59 06:59 18:59 Intake Total 1500 / 1500 1000 / 1000 Output Total 1950 / 1950 400 / 400 Balance -450 / -450 600 / 600 Weight 61.9 kg Intake: IV 800 / 800 600 / 600 Zyvox 600 mg Premix 300 ML @ 300 / 300 300 / 300 300 mls/hr IV.SIG Q12H [facility]ENOIT Rx#: [id number] Zosyn 4.5 GM Premix 4.5 gm In 200 / 200 200 / 200 100 ml @ 200 mls/hr IV.SIG Q6H [facility]ENOIT Rx#:[id number] KCl 20 mEq Premix Inj 20 meq In 300 / 300 100 / 100 100 ml @ 50 mls/hr IV.SIG Q2H PRN Rx#:[id number] Oral 700 / 700 400 / 400 Output: Urine 1950 / 1950 400 / 400 Other: Date of Last Bowel Movement 02/03/18 02/03/18 Physical Exam: Right first toe stable Laboratory Results - last 24 hr 01/29/18 02/09/18 09:22 01:07 Potassium 4.8 D Misc Test Result Microbiology 02/07/18 10:00 Gram Stain - Final Sputum - Expectorated Sputum Sputum Culture - Preliminary S. aureus MRSA 02/07/18 13:13 Aerobic Blood Culture - Preliminary Blood - Peripheral No growth in 1 day Anaerobic Blood Culture - Preliminary No growth in 1 day 02/07/18 13:04 Aerobic Blood Culture - Preliminary Blood - Peripheral No growth in 1 day Anaerobic Blood Culture - Preliminary No growth in 1 day Impressions Chest X-Ray 02/07/18 00:00 CONCLUSION: Slight improvement in bilateral airspace disease and right pleural effusion over the last day. Venous Doppler Study 02/07/18 13:15 CONCLUSION: The study is negative for bilateral lower extremity deep venous thrombosis. Chest X-Ray 02/08/18 00:00 CONCLUSION: 1. Stable right lower lobe airspace disease and probable trace pleural effusion. 2. Improved minimal residual patchy airspace disease in the left lower lung zone. 3. Increased ill-defined parenchymal opacity in the right upper lung zone which may reflect atelectasis. Cannot exclude developing new airspace disease. Chest X-Ray 02/09/18 06:00 CONCLUSION: Bibasilar and right upper lung areas of consolidation or atelectasis. Mild right pleural effusion. Assessment and Plan - Assessment (1) Gangrene of toe Code(s): I96 - Gangrene, not elsewhere classified Status: Acute - Plan CTA with runoff pending will follow Henri Todd MD [facility] [phone]
[2018-02-09 09:44] LABS: Hematocrit 33.5 % (35.0-46.0); Hemoglobin 11.3 gm/dL (11.6-15.3); Mean Corpuscular HGB Conc 33.6 % (32.0-36.0); Mean Corpuscular Hemoglobin 35.7 pg (27.0-34.0); Mean Corpuscular Volume 106.1 fL (80.0-100.0); Mean Platelet Volume 9.9 fL (7.0-11.0); Platelet Count 237 th/mm3 (150-450); Red Blood Count 3.16 mil/mm3 (4.00-5.30); White Blood Count 11.8 th/mm3 (4.0-11.0)
[2018-02-09] MEDS: Chlorhexidine 0.12% Oral Kit 15 ML UDC OROPHARYNG SCH ×2 (09:49→20:31)
[2018-02-09] MEDS: Carvedilol 12.5 MG Tablet PO SCH ×2 (09:50→20:32)
[2018-02-09] MEDS: guaiFENesin 600 MG ER Tablet PO SCH ×2 (09:53→20:31)
[2018-02-09] MEDS: Famotidine 20 MG Tablet PO SCH ×2 (09:55→20:30)
[2018-02-09] MEDS: Sodium Chloride 0.9% 2 ML Flush BID IV.FLUSH SCH ×2 (09:55→20:32)
[2018-02-09 10:11] LABS: Albumin 2.5 g/dL (3.4-5.0); Anion Gap 7 meq/L (5-15); Aspartate Aminotransferase 52 U/L (15-37); Blood Urea Nitrogen 18 mg/dL (7-18); Calcium 8.3 mg/dL (8.5-10.1); Carbon Dioxide 30.5 meq/L (21.0-32.0); Chloride 97 meq/L (98-107); Glomerular Filtration Rate Greater Than 89 mL/min (>89); Glucose,Random 94 mg/dL (74-106); Magnesium 1.7 mg/dL (1.5-2.5); Potassium 3.9 meq/L (3.5-5.1); Sodium 134 meq/L (136-145)
[2018-02-09 10:13] LABS: Alanine Aminotransferase 89 U/L (10-53); Phosphorus 2.9 mg/dL (2.5-4.9)
[2018-02-09 10:15] LABS: Alkaline Phosphatase 144 U/L (45-117); Total Protein 6.2 g/dL (6.4-8.2)
--- NOTE | 2018-02-09 12:46 | P.PNCC ---
Subjective Subjective Remarks/Hospital Course: This is a 32-year-old female that presented to the emergency department last evening. Per report reviewed the patient had complaints myalgias, nausea, vomiting diarrhea in conjunction fever and chills per review of the records the patient went to an urgent care center on and was diagnosed with the flu and subsequently sent home the patient stated her symptoms worsen so she presented to [facility] ED on 2017. Upon presentation imaging and laboratory studies were performed that initially revealed a significant leukocytosis with a WBC count of 20.8, hypokalemia and a chest x-ray revealing extensive bilateral airspace disease. The patient was bolused with IV fluids, and received prophylactic antibiotics, blood cultures were obtained. The patient was admitted to ICU at [place] and ICU was consulted on 01/28/2018 at 2059 ,and was placed on BiPAP overnight with worsening symptomatology. Respiratory rate throughout the night was noted to be in the high 30s-50, with O2 saturation 87-91 % throughout the night. Upon my arrival this am, I examined the patient at 0615, and upon my evaluation this a.m. was noted to be extremely dyspneic, unable to speak secondary to extreme dyspnea, respiratory rate 48-50, and O2 sat 86-87%. A stat ABG was obtained PaO2 was noted to be 84, on 100%, and the patient kept stating she could not breathe. The patient was emergently intubated x1 attempt. Visually O2 saturation remained in the mid 80s-88 % on PEEP 12, FIO2 of 100%, with a slightly extended I- time. A stat ABG was performed PaO2 was noted to be 72, ventilator adjustments continued to optimize oxygenation. Emergent A-line was placed for frequent blood sampling, to evaluate oxygenation. The patient was noted to be in a sinus tach the patient was bolused with additional IV fluids 2 L and placed on sedation, to include, Versed , propofol, fentanyl infusions. The patient's past medical history is significant for hepatitis C, borderline personality disorder Funes acted 2017 secondary to chronic anxiety per records reviewed the patient takes Klonopin. 01/30: The patient's oxygenation moved by midday 01/29, and the patient was transferred via ambulance to [facility]. On her arrival the patient had a CVL placed, echo performed peer and the patient was placed on prone bed for prone positioning. Upon prone positioning, the patient's O2 saturation improved. FiO2 currently is at 60% when patient is in prone position with O2 sat of 100%. The patient remains deeply sedated with neuromuscular blockade Nemex for prone positioning. Urine output is equivalent to 1 cc/kg/h the patient was noted to have a metabolic acidosis this a.m., 50 mEq of sodium bicarbonate was given, IV fluids changed to one half normal saline at 100 cc/ hour. Noted lactic acidemia now resolved. One bottle blood culture showed gram -positive cocci. Discussed with patient's mother and permission granted to obtain HIV labs, deemed medically necessary per ID Dr. Carballo. 01/31: Decreasing FiO2 requirements at this time. Chest x-ray suggestive of interstitial edema, Lasix 40 mg x1 dose provided. IV fluids decreased to 42 cc/ hr . Secondary to prone positioning StatLock removed and central line sutured in place, to prevent possible dislodgment and prone position. Cultures revealed sputum MRSA, and blood gram-positive cocci. HIV testing labs negative. 02/01: Noted improvement clinically and respiratory status O2 requirements have been decreased 0.45% and a PEEP of 8. Patient noted to have a positive fluid balance was diuresed yesterday, chest x-ray shows persistent pulmonary edema Lasix dosing increased to twice daily IV fluids have now been discontinued. Noted thrombocytopenia, heparin platelet antibody has been ordered. Colitis currently being replaced. 02/02: fio2 continues to improve. supinated today and remains stable x 8 hrs. can likely transition off RotaProne bed today. continues to be very volume overloaded, although adequate start to diuresis yesterday. 02/03: The patient was removed from rota prone bread at 1800 yesterday. The patient continues to improve oxygenation. Versed continually being weaned down in anticipation for CPAP trials. Dietary consult has been initiated for tube feeds. 02/04: Afebrile. the patient remained on CPAP trials throughout yesterday afternoon, placed back on a rate last evening. CPAP trials have been reinitiated this a.m. SBT parameters currently being obtain ABG within normal limits plan for possible extubation today 02/05 Tolerated extubation yesterday and remains on 5 L nasal cannula. Has passed bedside swallow evaluation and is requesting to advance diet. Temp max 100.5. Sputum culture 02/03 pending. On cefepime, azithro and vanc per ID. Has been diuresed aggressively. Creatinine normal, alkalosis. Remove invasive lines and Garcia today. Out of bed 02/06 Alkalosis has given way to bicarb of 18.4 following diamox. She is on 6 L NC but is tachypneic, more dyspneic today. +thick sputum production and respiratory muscle weakness are contributing. Guafenesin/nebs/EZPAP. Bipap to support now. May require reintubation, but trying to avoid. Subjective: 02/07 On and off Bipap. She is very weak with critical illness polyneuropathy and I believe this is contributing to her ongoing respiratory issues. Appreciate staff assistance with aggressive pulmonary toilet. Bibasilar infiltrates have persisted. Antibiotics adjusted to zosyn/linezolid yesterday per ID. No fever. She does have uptrending leukocytosis. Will d/c steroids to effort to mitigate weakness. Family and patient aware she may require intubation (which could very well lead to trach due to her weakness). 02/08: Remains very weak from critical illness neuropathy and myopathy. She is requiring on and off BiPAP still. Very coarse rhonchi bilaterally. Chest x- ray shows some increase in upper lobe infiltrates. Pt/Ot. Plan bedside ultrasound to evaluate right effusion 02/09/18: Continues to be quite weak with rhonchorous breath. Bilateral scattered rhonchi and some inspiratory wheezing. Chest x-ray is stable to slightly worsening infiltrates. Objective Vital Signs / I&O: Vital Signs 02/08/18 12:36 02/08/18 13:00 02/08/18 14:00 Temperature Pulse Rate 92 H 85 Respiratory Rate Blood Pressure 106/55 L 97/51 L Pulse Oximetry 95 95 99 02/08/18 15:00 02/08/18 15:58 02/08/18 16:00 Temperature 98.9 F Pulse Rate 93 H 88 89 Respiratory Rate 20 Blood Pressure 98/57 L 98/61 L Pulse Oximetry 97 95 02/08/18 17:00 02/08/18 17:01 02/08/18 18:00 Temperature Pulse Rate 89 91 H 88 Respiratory Rate Blood Pressure 115/61 110/58 L Pulse Oximetry 93 L 94 L 02/08/18 19:54 02/08/18 19:55 02/08/18 20:00 Temperature 98.8 F Pulse Rate 83 87 Respiratory Rate 20 18 Blood Pressure 104/55 L Pulse Oximetry 96 95 02/08/18 22:00 02/08/18 23:56 02/09/18 00:00 Temperature 98.4 F Pulse Rate 88 87 89 Respiratory Rate 18 15 Blood Pressure 95/52 L Pulse Oximetry 02/09/18 02:00 02/09/18 03:57 02/09/18 04:00 Temperature 98.8 F Pulse Rate 85 85 88 Respiratory Rate 20 15 Blood Pressure 102/57 L Pulse Oximetry 02/09/18 06:00 02/09/18 12:10 Temperature Pulse Rate 81 83 Respiratory Rate 16 Blood Pressure Pulse Oximetry Intake & Output 02/08/18 02/09/18 02/09/18 18:59 06:59 18:59 Intake Total 1500 / 1500 1000 / 1000 Output Total 1950 / 1950 400 / 400 Balance -450 / -450 600 / 600 Weight 61.9 kg Intake: IV 800 / 800 600 / 600 Zyvox 600 mg Premix 300 ML @ 300 / 300 300 / 300 300 mls/hr IV.SIG Q12H BENOIT Rx#: [id number] Zosyn 4.5 GM Premix 4.5 gm In 200 / 200 200 / 200 100 ml @ 200 mls/hr IV.SIG Q6H BENOIT Rx#:[id number] KCl 20 mEq Premix Inj 20 meq In 300 / 300 100 / 100 100 ml @ 50 mls/hr IV.SIG Q2H PRN Rx#:[id number] Oral 700 / 700 400 / 400 Output: Urine 1948 / 1950 400 / 400 Other: Date of Last Bowel Movement 02/03/18 02/03/18 Result Diagrams: 02/09/18 09:10 02/09/18 09:10 Objective Remarks: GENERAL: Young female, lying in bed, alert and conversant. Tachypneic. SKIN: Warm and dry. HEAD: Atraumatic. Normocephalic. EYES: Pupils equal and round. No scleral icterus. No injection or drainage. ENT: Currently on facemask NECK: Trachea midline. No JVD. CARDIOVASCULAR: Tachycardic rate, regular rhythm. sinus on the monitor. RESPIRATORY: Some accessory muscle use. Rales in right base. Scattered extensive bilateral rhonchi. No wheeze. GASTROINTESTINAL: Abdomen soft, non-tender, nondistended. Bowel sounds present. MUSCULOSKELETAL: Extremities without clubbing, cyanosis, trace edema. No obvious deformities. Bruising noted on right forehead left great toe 2/2 rota prone bed positioning. Also skin breakdown medial lower legs bilaterally. Right big toe has a area of gangrene medially NEUROLOGICAL: Awake, oriented to person, place, circumstance. She does move all extremities to command. Hip flexor 3/5, hamstring 2/5, wiggles toes. weak clinical staff educator strength bilaterally, deltoids 3/5, biceps 2/5. Procedures: 01/31: Sutured right IJ, StatLock removed. Assessment and Plan - Problem List (1) Acute respiratory failure with hypoxia and hypercarbia Code(s): J96.01 - Acute respiratory failure with hypoxia; J96.02 - Acute respiratory failure with hypercapnia Status: Resolved (2) Hepatitis Code(s): K75.9 - Inflammatory liver disease, unspecified Status: Acute (3) Bilateral pneumonia Code(s): J18.9 - Pneumonia, unspecified organism Status: Acute (4) Sepsis Code(s): A41.9 - Sepsis, unspecified organism Status: Acute (5) Hypoxia Code(s): R09.02 - Hypoxemia Status: Acute (6) Leukocytosis Code(s): D72.829 - Elevated white blood cell count, unspecified Status: Acute (7) Hyperglycemia Code(s): R73.9 - Hyperglycemia, unspecified Status: Acute (8) Thrombocytopenia Code(s): D69.6 - Thrombocytopenia, unspecified Status: Acute (9) Polyneuropathy associated with critical illness Code(s): G62.81 - Critical illness polyneuropathy Status: Acute - Assessment and Plan Plan: Plan by systems: Neurologic: Anxiety disorder Borderline personality disorder Substance use disordercocaine abuse Acetaminophen 650 mg every 6 hours as needed for temperature greater than 101.0 01/28 urine drug screen-positive for cocaine Critical illness polyneuropathy OT consult. Daily PT. Out of bed to chair. Respiratory: Acute hypoxemic and hypercarbic respiratory failure Bilateral pneumonia ARDS-improving bilateral pulmonary edema- severe Tobacco use disorder Duoneb q4/EZPAP. Guaifenesin 600 bid. suction prn. Add Acapella Resp muscle weakness contributing, supporting resp effort with BIPAP. D/cd solumedrol. Pulmonology following. Legionella, pneumococcal urine antigens-neg Influenza antigens A/Bneg. 01/29-intubated 7.5 ETT 22 at the [facility], Extubated 02/04 Dr. Syed following. On Lasix 40 q8, significant net negative, decreased to q12. Cardiovascular: Sinus tachycardia Right big toe gangrene Maintain MAP > 65mmHg 01/28 Echo EF 40-45%, moderately dilated left ventricle, LAD infarct vs. Taktsubo cardiomyopathy, no vegetations noted PAP 42 Coreg 12.5 bid[address] ASA [address] Mendoza evaluated, plan for stress when stabilized and out of ICU. Appreciate vascular surgery consult by Dr. Todd, CTA with runoff when stable Renal/FEN: Removed Garcia 02/05. KCL 20 mEq po bid while on Lasix. Monitoring creatinine. GI: Hepatitis C Transaminitis Metabolic alkalosis resolved. Hypernatremia - Related to diuresis. Patient should self-correct now that diet advanced. Hypokalemia Regular diet. Ensure tid. Monitor CMP Electrolyte replacement per ICU protocol Heme/ID: MRSA Pneumonia Severe sepsis Leukocytosis-resolved ARDS Hepatitis C AB positive - RNA viral load pending. Thrombocytopenia 01/28-Legionella, mycoplasma, pneumococcal antigens-negative 01/28 sputum culture-negative Viral respiratory PCR negative. ID consulted-Dr. Carballo following. On Zosyn, linezolid per ID. 01/28 Blood MRSA. Subsequent Blood culture 02/02 NGTD. HIV- negative, CD4 185 F/U HCV PCR 02/02 Heparin platelet antibody-negative Endocrine: Hyperglycemia of critical illness No longer requiring insulin. Prophylaxis: GI Prophylaxis famotidine DVT Prophylaxis -- SCDs Lines: PIV. D/c R IJ CVL (01/29-02/05 , Right rad arterial line d/c'd 02.05. Arterial line left radial (dc'd 02/01), Mother and grandmother updated 02/[address] Moreno and multiple questions answered. Level 3 follow-up (3) Bilateral pneumonia Qualifiers: Pneumonia type: due to unspecified organism Lung location: unspecified part of lung Qualified Code(s): J18.9 - Pneumonia, unspecified organism (4) Sepsis Qualifiers: Sepsis type: sepsis due to unspecified organism Qualified Code(s): A41.9 - Sepsis, unspecified organism (6) Leukocytosis Qualifiers: Leukocytosis type: unspecified Qualified Code(s): D72.829 - Elevated white blood cell count, unspecified
[2018-02-09] MEDS ORDERED: Sod Phosphate/Sod Biphosphate (Adult) Enema 133 ML Bottle RECTAL PRN (16:32)
[2018-02-09] MEDS: Docusate Sodium Liq 100 MG/10 ML UDC PO SCH (20:31)
[2018-02-09] MEDS: Enoxaparin Inj 40 MG/0.4 ML Syringe SQ SCH (23:08)
[2018-02-10] MEDS: Oral Hygiene Kit OROPHARYNG SCH ×3 (03:55→18:52)
[2018-02-10] MEDS: Piperacil/Tazo 4.5 GM Premix 4.5 GM/100 ML BAG IV.SIG SCH ×4 (03:56→21:16)
[2018-02-10 08:00] LABS: Glomerular Filtration Rate Greater Than 89 mL/min (>89)
[2018-02-10] MEDS: Docusate Sodium Liq 100 MG/10 ML UDC PO SCH ×2 (08:42→20:21)
[2018-02-10] MEDS: guaiFENesin 600 MG ER Tablet PO SCH ×2 (08:42→20:22)
[2018-02-10] MEDS: Famotidine 20 MG Tablet PO SCH ×2 (08:43→20:21)
[2018-02-10] MEDS: Sodium Chloride 0.9% 2 ML Flush BID IV.FLUSH SCH ×2 (08:44→20:22)
--- NOTE | 2018-02-10 08:48 | P.PNCC ---
Subjective Subjective Remarks/Hospital Course: This is a 32-year-old female that presented to the emergency department last evening. Per report reviewed the patient had complaints myalgias, nausea, vomiting diarrhea in conjunction fever and chills per review of the records the patient went to an urgent care center on and was diagnosed with the flu and subsequently sent home the patient stated her symptoms worsen so she presented to [facility] ED on 2017. Upon presentation imaging and laboratory studies were performed that initially revealed a significant leukocytosis with a WBC count of 20.8, hypokalemia and a chest x-ray revealing extensive bilateral airspace disease. The patient was bolused with IV fluids, and received prophylactic antibiotics, blood cultures were obtained. The patient was admitted to ICU at [place] and ICU was consulted on 01/28/2018 at 2059 ,and was placed on BiPAP overnight with worsening symptomatology. Respiratory rate throughout the night was noted to be in the high 30s-50, with O2 saturation 87-91 % throughout the night. Upon my arrival this am, I examined the patient at 0615, and upon my evaluation this a.m. was noted to be extremely dyspneic, unable to speak secondary to extreme dyspnea, respiratory rate 48-50, and O2 sat 86-87%. A stat ABG was obtained PaO2 was noted to be 84, on 100%, and the patient kept stating she could not breathe. The patient was emergently intubated x1 attempt. Visually O2 saturation remained in the mid 80s-88 % on PEEP 12, FIO2 of 100%, with a slightly extended I- time. A stat ABG was performed PaO2 was noted to be 72, ventilator adjustments continued to optimize oxygenation. Emergent A-line was placed for frequent blood sampling, to evaluate oxygenation. The patient was noted to be in a sinus tach the patient was bolused with additional IV fluids 2 L and placed on sedation, to include, Versed , propofol, fentanyl infusions. The patient's past medical history is significant for hepatitis C, borderline personality disorder Funes acted 2017 secondary to chronic anxiety per records reviewed the patient takes Klonopin. 01/30: The patient's oxygenation moved by midday 01/29, and the patient was transferred via ambulance to [facility]. On her arrival the patient had a CVL placed, echo performed peer and the patient was placed on prone bed for prone positioning. Upon prone positioning, the patient's O2 saturation improved. FiO2 currently is at 60% when patient is in prone position with O2 sat of 100%. The patient remains deeply sedated with neuromuscular blockade Nemex for prone positioning. Urine output is equivalent to 1 cc/kg/h the patient was noted to have a metabolic acidosis this a.m., 50 mEq of sodium bicarbonate was given, IV fluids changed to one half normal saline at 100 cc/ hour. Noted lactic acidemia now resolved. One bottle blood culture showed gram -positive cocci. Discussed with patient's mother and permission granted to obtain HIV labs, deemed medically necessary per ID Dr. Carballo. 01/31: Decreasing FiO2 requirements at this time. Chest x-ray suggestive of interstitial edema, Lasix 40 mg x1 dose provided. IV fluids decreased to 42 cc/ hr . Secondary to prone positioning StatLock removed and central line sutured in place, to prevent possible dislodgment and prone position. Cultures revealed sputum MRSA, and blood gram-positive cocci. HIV testing labs negative. 02/01: Noted improvement clinically and respiratory status O2 requirements have been decreased 0.45% and a PEEP of 8. Patient noted to have a positive fluid balance was diuresed yesterday, chest x-ray shows persistent pulmonary edema Lasix dosing increased to twice daily IV fluids have now been discontinued. Noted thrombocytopenia, heparin platelet antibody has been ordered. Colitis currently being replaced. 02/02: fio2 continues to improve. supinated today and remains stable x 8 hrs. can likely transition off RotaProne bed today. continues to be very volume overloaded, although adequate start to diuresis yesterday. 02/03: The patient was removed from rota prone bread at 1800 yesterday. The patient continues to improve oxygenation. Versed continually being weaned down in anticipation for CPAP trials. Dietary consult has been initiated for tube feeds. 02/04: Afebrile. the patient remained on CPAP trials throughout yesterday afternoon, placed back on a rate last evening. CPAP trials have been reinitiated this a.m. SBT parameters currently being obtain ABG within normal limits plan for possible extubation today 02/05 Tolerated extubation yesterday and remains on 5 L nasal cannula. Has passed bedside swallow evaluation and is requesting to advance diet. Temp max 100.5. Sputum culture 02/03 pending. On cefepime, azithro and vanc per ID. Has been diuresed aggressively. Creatinine normal, alkalosis. Remove invasive lines and Garcia today. Out of bed 02/06 Alkalosis has given way to bicarb of 18.4 following diamox. She is on 6 L NC but is tachypneic, more dyspneic today. +thick sputum production and respiratory muscle weakness are contributing. Guafenesin/nebs/EZPAP. Bipap to support now. May require reintubation, but trying to avoid. Subjective: 02/07 On and off Bipap. She is very weak with critical illness polyneuropathy and I believe this is contributing to her ongoing respiratory issues. Appreciate staff assistance with aggressive pulmonary toilet. Bibasilar infiltrates have persisted. Antibiotics adjusted to zosyn/linezolid yesterday per ID. No fever. She does have uptrending leukocytosis. Will d/c steroids to effort to mitigate weakness. Family and patient aware she may require intubation (which could very well lead to trach due to her weakness). 02/08: Remains very weak from critical illness neuropathy and myopathy. She is requiring on and off BiPAP still. Very coarse rhonchi bilaterally. Chest x- ray shows some increase in upper lobe infiltrates. Pt/Ot. Plan bedside ultrasound to evaluate right effusion 02/09/18: Continues to be quite weak with rhonchorous breath. Bilateral scattered rhonchi and some inspiratory wheezing. Chest x-ray is stable to slightly worsening infiltrates. 02/10/18: Lying in bed appears slightly more comfortable right chest exam more clear. Left lung still has coarse rhonchi and some wheezing. Urine output more than 1.8 L in 24 hours. No bowel movements since per patient. Bowel regimen started Objective Vital Signs / I&O: Vital Signs 02/09/18 09:00 02/09/18 10:00 02/09/18 11:00 Temperature Pulse Rate 83 95 H 92 H Respiratory Rate Blood Pressure 96/58 L 94/50 L 98/54 L Pulse Oximetry 100 100 02/09/18 12:00 02/09/18 12:10 02/09/18 13:00 Temperature 99.1 F Pulse Rate 101 H 83 101 H Respiratory Rate 16 16 Blood Pressure 100/57 L 99/58 L Pulse Oximetry 92 L 99 02/09/18 14:00 02/09/18 15:00 02/09/18 16:00 Temperature 98.3 F Pulse Rate 95 H 86 107 H Respiratory Rate 16 Blood Pressure 99/57 L 103/56 L 108/57 L Pulse Oximetry 100 100 99 02/09/18 16:07 02/09/18 17:00 02/09/18 18:00 Temperature Pulse Rate 97 H 94 H 107 H Respiratory Rate 15 Blood Pressure 89/55 L 98/57 L Pulse Oximetry 99 98 02/09/18 19:00 02/09/18 19:21 02/09/18 20:00 Temperature 98.8 F Pulse Rate 98 H 95 H Respiratory Rate 18 Blood Pressure 97/50 L 97/55 L Pulse Oximetry 99 98 02/09/18 20:48 02/09/18 21:00 02/09/18 22:00 Temperature Pulse Rate 97 H 92 H 94 H Respiratory Rate 18 Blood Pressure 100/57 L 95/53 L Pulse Oximetry 99 97 97 02/09/18 23:00 02/10/18 00:00 02/10/18 01:00 Temperature 98 F Pulse Rate 98 H 80 88 Respiratory Rate Blood Pressure 96/51 L 103/58 L Pulse Oximetry 98 97 97 02/10/18 02:00 02/10/18 03:00 02/10/18 04:00 Temperature Pulse Rate 91 H 98 H 92 H Respiratory Rate Blood Pressure 98/53 L 91/50 L 99/58 L Pulse Oximetry 94 L 96 97 02/10/18 05:00 02/10/18 06:00 02/10/18 07:41 Temperature Pulse Rate 89 80 91 H Respiratory Rate 18 Blood Pressure 96/52 L 100/52 L Pulse Oximetry 97 98 98 Intake & Output 02/09/18 02/10/18 02/10/18 18:59 06:59 18:59 Intake Total 1200 / 1200 1200 / 1200 Output Total 1300 / 1300 1000 / 1000 Balance -100 / -100 200 / 200 Weight 62 kg Intake: IV 200 / 200 800 / 800 Zyvox 600 mg Premix 300 ML @ 600 / 600 300 mls/hr IV.SIG Q12H BENOIT Rx#: [id number] Zosyn 4.5 GM Premix 4.5 gm In 200 / 200 200 / 200 100 ml @ 200 mls/hr IV.SIG Q6H BENOIT Rx#:[id number] Oral 800 / 800 400 / 400 Other 200 / 200 Output: Urine 500 / 500 Urine Amount (Catheter) 800 / 800 1000 / 1000 Straight 800 / 800 1000 / 1000 Other: # Voids 3 # Incontinent Voids 1 Date of Last Bowel Movement 02/03/18 02/03/18 # Bowel Movements 0 Result Diagrams: 02/09/18 09:10 02/10/18 07:05 Objective Remarks: GENERAL: Young female, lying in bed, alert and conversant. Breathing more comfortably SKIN: Warm and dry. HEAD: Atraumatic. Normocephalic. EYES: Pupils equal and round. No scleral icterus. No injection or drainage. ENT: Currently on facemask NECK: Trachea midline. No JVD. CARDIOVASCULAR: Regular rhythm. sinus on the monitor. RESPIRATORY: Some accessory muscle use. Rales in right base. Scattered extensive bilateral rhonchi predominantly left chest. GASTROINTESTINAL: Abdomen soft, non-tender, nondistended. Bowel sounds present. MUSCULOSKELETAL: Extremities without clubbing, cyanosis, trace edema. No obvious deformities. Bruising noted on right forehead left great toe 2/2 rota prone bed positioning. Also skin breakdown medial lower legs bilaterally. Right big toe has an area of gangrene medially NEUROLOGICAL: Awake, oriented to person, place, circumstance. She does move all extremities to command. Hip flexor 3/5, hamstring 2/5, wiggles toes. weak assistant center manager strength bilaterally, deltoids 3/5, biceps 2/5. Procedures: 01/31: Sutured right IJ, StatLock removed. Assessment and Plan - Problem List (1) Acute respiratory failure with hypoxia and hypercarbia Code(s): J96.01 - Acute respiratory failure with hypoxia; J96.02 - Acute respiratory failure with hypercapnia Status: Resolved (2) Hepatitis Code(s): K75.9 - Inflammatory liver disease, unspecified Status: Acute (3) Bilateral pneumonia Code(s): J18.9 - Pneumonia, unspecified organism Status: Acute (4) Sepsis Code(s): A41.9 - Sepsis, unspecified organism Status: Acute (5) Hypoxia Code(s): R09.02 - Hypoxemia Status: Acute (6) Leukocytosis Code(s): D72.829 - Elevated white blood cell count, unspecified Status: Acute (7) Hyperglycemia Code(s): R73.9 - Hyperglycemia, unspecified Status: Acute (8) Thrombocytopenia Code(s): D69.6 - Thrombocytopenia, unspecified Status: Acute (9) Polyneuropathy associated with critical illness Code(s): G62.81 - Critical illness polyneuropathy Status: Acute - Assessment and Plan Plan: Plan by systems: Neurologic: Anxiety disorder Borderline personality disorder Substance use disordercocaine abuse Acetaminophen 650 mg every 6 hours as needed for temperature greater than 101.0 01/28 urine drug screen-positive for cocaine Critical illness polyneuropathy OT consult. Daily PT. Out of bed to chair. Respiratory: Acute hypoxemic and hypercarbic respiratory failure Bilateral pneumonia ARDS-improving bilateral pulmonary edema- severe Tobacco use disorder DuoNeb q4/EZPAP. Guaifenesin 600 bid. suction prn. Acapella Resp muscle weakness contributing, supporting resp effort with BIPAP. D/cd solumedrol. Pulmonology following. Legionella, pneumococcal urine antigens-neg. Influenza antigens A/Bneg. 01/29-intubated 7.5 ETT 22 at the [facility], Extubated 02/04 Dr. Syed following. On Lasix 40 q12 Cardiovascular: Right big toe gangrene Maintain MAP > 65mmHg 01/28 Echo EF 40-45%, moderately dilated left ventricle, LAD infarct vs. Taktsubo cardiomyopathy, no vegetations noted PAP 42 Coreg 12.5 bid. ASA 81 mg daily. Repeat Bedside Echo today to re evaluate LV Dr. Mendoza evaluated, plan for stress when stabilized and out of ICU. Appreciate vascular surgery consult by Dr. Todd, CTA with runoff when stable Renal/FEN: Removed Garcia 02/05. KCL 20 mEq po bid while on Lasix. Monitoring creatinine. GI: Hepatitis C Transaminitis Metabolic alkalosis resolved. Hypernatremia - Related to diuresis. Patient should self-correct now that diet advanced. Hypokalemia Regular diet. Ensure tid. Monitor CMP Electrolyte replacement per ICU protocol Heme/ID: MRSA Pneumonia Severe sepsis Leukocytosis-resolved ARDS Hepatitis C AB positive - RNA viral load pending. Thrombocytopenia 01/28-Legionella, mycoplasma, pneumococcal antigens-negative 01/28 sputum culture-negative Viral respiratory PCR negative. ID consulted-Dr. Carballo following. On Zosyn, linezolid per ID. 01/28 Blood MRSA. Subsequent Blood culture 02/02 NGTD. HIV- negative, CD4 185 F/U HCV PCR 02/02 Heparin platelet antibody-negative Endocrine: Hyperglycemia of critical illness No longer requiring insulin. Prophylaxis: GI Prophylaxis famotidine DVT Prophylaxis -- SCDs Lines: PIV. D/c R IJ CVL (01/29-02/05 , Right rad arterial line d/c'd 02.05. Arterial line left radial (dc'd 02/01), Mother and grandmother updated 02/[address] Moreno and multiple questions answered. Level 2 follow-up (3) Bilateral pneumonia Qualifiers: Pneumonia type: due to unspecified organism Lung location: unspecified part of lung Qualified Code(s): J18.9 - Pneumonia, unspecified organism (4) Sepsis Qualifiers: Sepsis type: sepsis due to unspecified organism Qualified Code(s): A41.9 - Sepsis, unspecified organism (6) Leukocytosis Qualifiers: Leukocytosis type: unspecified Qualified Code(s): D72.829 - Elevated white blood cell count, unspecified
[2018-02-10] MEDS: Carvedilol 12.5 MG Tablet PO SCH ×2 (08:51→20:22)
[2018-02-10] MEDS: Chlorhexidine 0.12% Oral Kit 15 ML UDC OROPHARYNG SCH ×2 (08:52→20:26)
--- NOTE | 2018-02-10 10:05 | P.PNPL ---
Subjective Interval history: Patient is on 1.5 L oxygen with good sats. Afebrile. Physical Exam Vital signs: Vital Signs 02/09/18 10:00 02/09/18 11:00 02/09/18 12:00 Temperature 99.1 F Pulse Rate 95 H 92 H 101 H Respiratory Rate 16 Blood Pressure 94/50 L 98/54 L 100/57 L Pulse Oximetry 100 92 L 02/09/18 12:10 02/09/18 13:00 02/09/18 14:00 Temperature Pulse Rate 83 101 H 95 H Respiratory Rate 16 Blood Pressure 99/58 L 99/57 L Pulse Oximetry 99 100 02/09/18 15:00 02/09/18 16:00 02/09/18 16:07 Temperature 98.3 F Pulse Rate 86 107 H 97 H Respiratory Rate 16 15 Blood Pressure 103/56 L 108/57 L Pulse Oximetry 100 99 02/09/18 17:00 02/09/18 18:00 02/09/18 19:00 Temperature Pulse Rate 94 H 107 H 98 H Respiratory Rate Blood Pressure 89/55 L 98/57 L 97/50 L Pulse Oximetry 99 98 99 02/09/18 19:21 02/09/18 20:00 02/09/18 20:48 Temperature 98.8 F Pulse Rate 95 H 97 H Respiratory Rate 18 18 Blood Pressure 97/55 L Pulse Oximetry 98 99 02/09/18 21:00 02/09/18 22:00 02/09/18 23:00 Temperature Pulse Rate 92 H 94 H 98 H Respiratory Rate Blood Pressure 100/57 L 95/53 L 96/51 L Pulse Oximetry 97 97 98 02/10/18 00:00 02/10/18 01:00 02/10/18 02:00 Temperature 98 F Pulse Rate 80 88 91 H Respiratory Rate Blood Pressure 103/58 L 98/53 L Pulse Oximetry 97 97 94 L 02/10/18 03:00 02/10/18 04:00 02/10/18 05:00 Temperature Pulse Rate 98 H 92 H 89 Respiratory Rate Blood Pressure 91/50 L 99/58 L 96/52 L Pulse Oximetry 96 97 97 02/10/18 06:00 02/10/18 07:41 Temperature Pulse Rate 80 91 H Respiratory Rate 18 Blood Pressure 100/52 L Pulse Oximetry 98 98 Intake & Output 0102/10/18 02/10/18 18:59 06:59 18:59 Intake Total 1200 / 1200 1200 / 1200 Output Total 1300 / 1300 1000 / 1000 Balance -100 / -100 200 / 200 Weight 62 kg Intake: IV 200 / 200 800 / 800 Zyvox 600 mg Premix 300 ML @ 600 / 600 300 mls/hr IV.SIG Q12H BENOIT Rx#: [id number] Zosyn 4.5 GM Premix 4.5 gm In 200 / 200 200 / 200 100 ml @ 200 mls/hr IV.SIG Q6H BENOIT Rx#:[id number] Oral 800 / 800 400 / 400 Other 200 / 200 Output: Urine 500 / 500 Urine Amount (Catheter) 800 / 800 1000 / 1000 Straight 800 / 800 1000 / 1000 Other: # Voids 3 # Incontinent Voids 1 Date of Last Bowel Movement 02/03/18 02/03/18 # Bowel Movements 0 - Constitutional no acute distress - Routine HEENT Exam Head: Present: normocephalic, atraumatic Eye: Present: EOMI, PERRL, normal accommodation, conjunctivae pink ENT: Present: mucous membranes moist - Routine Neck Exam Present: supple, full ROM, trachea midline - Routine Respiratory Exam Present: CTA bilaterally - Routine Cardiovascular Exam Present: RRR, S1, S2 - Routine Abdominal Exam Present: soft, normoactive bowel sounds - Routine Extremities Exam Present: cyanosis Comments: Right big toe has an area of gangrene medially - Routine Skin Exam Present: intact, dry - Routine Neurological Exam Present: alert, oriented X3, CN II-XII intact - Urinary Catheter Management Indwelling Urethral Catheter Cath placed during this visit: yes Reason for continuing: Other continuation reason Insertion date: 01/29/18 Insertion time: 07:15 Straight Cath placed during this visit: yes Reason for continuing: Not indwelling catheter Insertion date: 02/10/18 Insertion time: 01:30 Assessment and Plan - Assessment (1) Acute respiratory failure with hypoxia and hypercarbia Code(s): J96.01 - Acute respiratory failure with hypoxia; J96.02 - Acute respiratory failure with hypercapnia Status: Resolved (2) Hepatitis Code(s): K75.9 - Inflammatory liver disease, unspecified Status: Acute (3) Bilateral pneumonia Code(s): J18.9 - Pneumonia, unspecified organism Status: Acute Qualifiers: Pneumonia type: due to unspecified organism Lung location: unspecified part of lung Qualified Code(s): J18.9 - Pneumonia, unspecified organism (4) Sepsis Code(s): A41.9 - Sepsis, unspecified organism Status: Acute Qualifiers: Sepsis type: sepsis due to unspecified organism Qualified Code(s): A41.9 - Sepsis, unspecified organism (5) Hypoxia Code(s): R09.02 - Hypoxemia Status: Acute (6) Leukocytosis Code(s): D72.829 - Elevated white blood cell count, unspecified Status: Acute Qualifiers: Leukocytosis type: unspecified Qualified Code(s): D72.829 - Elevated white blood cell count, unspecified (7) Hyperglycemia Code(s): R73.9 - Hyperglycemia, unspecified Status: Acute (8) Thrombocytopenia Code(s): D69.6 - Thrombocytopenia, unspecified Status: Acute (9) Polyneuropathy associated with critical illness Code(s): G62.81 - Critical illness polyneuropathy Status: Acute - Plan 1. Resp Insuff s/p Extubation 02/04 2. s/p ARDS 3. MRSA pneumonia. 4. Staphylococcus aureus bacteremia. 5. Hepatitis C. 6. Anemia. 7. Thrombocytopenia. 8. Leukocytosis Plan Continue with oxygen and maintain sats >92%. Bronchodilators, IS BIPAP PRN CXR 02/09: Bibasilar and right upper lung areas of consolidation or atelectasis. Mild right pleural effusion. Abx per ID -Zyvox, Zosyn. Monitor for signs of infections ( fever, WBC). ID is following. 01/28 BC: Staph Aureus. Sputum cx: MRSA 01/29 & 02/03, 02/07. Influenza screening negative on 01/28, Strep pneumonia and Legionella urinary Ag negative on 01/29 BC from 02/02: NGTD On Lasix 40mg daily. Electrolytes replacement per protocol. Vascular surg is following for Right big toe gangrene medially- Awaiting CTA runoff GI/DVT prophylaxis. on Pepcid 20 mg q.12 and Lovenox 40 mg subcutaneous daily. Continue treatment plan
[2018-02-10] MEDS ORDERED: Digoxin Inj 500 MCG/2 ML Ampul IV.PUSH ONE (16:00)
--- NOTE | 2018-02-10 18:22 | P.PNVS ---
Subjective Subjective/Hospital Course: no acute issues Objective Vital Signs / I&O: Vital Signs 02/09/18 19:00 02/09/18 19:21 02/09/18 20:00 Temperature 98.8 F Pulse Rate 98 H 95 H Respiratory Rate 18 Blood Pressure 97/50 L 97/55 L Pulse Oximetry 99 98 02/09/18 20:48 02/09/18 21:00 02/09/18 22:00 Temperature Pulse Rate 97 H 92 H 94 H Respiratory Rate 18 Blood Pressure 100/57 L 95/53 L Pulse Oximetry 99 97 97 02/09/18 23:00 02/10/18 00:00 02/10/18 01:00 Temperature 98 F Pulse Rate 98 H 80 88 Respiratory Rate Blood Pressure 96/51 L 103/58 L Pulse Oximetry 98 97 97 02/10/18 02:00 02/10/18 03:00 02/10/18 04:00 Temperature Pulse Rate 91 H 98 H 92 H Respiratory Rate Blood Pressure 98/53 L 91/50 L 99/58 L Pulse Oximetry 94 L 96 97 02/10/18 05:00 02/10/18 06:00 02/10/18 07:41 Temperature Pulse Rate 89 80 91 H Respiratory Rate 18 Blood Pressure 96/52 L 100/52 L Pulse Oximetry 97 98 98 02/10/18 08:00 02/10/18 10:00 02/10/18 11:40 Temperature Pulse Rate 84 117 H 102 H Respiratory Rate 18 Blood Pressure Pulse Oximetry 98 02/10/18 16:06 Temperature Pulse Rate 104 H Respiratory Rate 18 Blood Pressure Pulse Oximetry Intake & Output 02/09/18 02/10/18 02/10/18 18:59 06:59 18:59 Intake Total 1200 / 1200 1200 / 1200 Output Total 1300 / 1300 1000 / 1000 Balance -100 / -100 200 / 200 Weight 62 kg Intake: IV 200 / 200 800 / 800 Zyvox 600 mg Premix 300 ML @ 600 / 600 300 mls/hr IV.SIG Q12H [facility]ENOIT Rx#: [id number] Zosyn 4.5 GM Premix 4.5 gm In 200 / 200 200 / 200 100 ml @ 200 mls/hr IV.SIG Q6H [facility]ENOIT Rx#:[id number] Oral 800 / 800 400 / 400 Other 200 / 200 Output: Urine 500 / 500 Urine Amount (Catheter) 800 / 800 1000 / 1000 Straight 800 / 800 1000 / 1000 Other: # Voids 3 # Incontinent Voids 1 Date of Last Bowel Movement 02/03/18 02/03/18 02/03/18 # Bowel Movements 0 Physical Exam: right toe with no changes Laboratory Results - last 24 hr 02/10/18 07:05 Creatinine 0.52 Estimated GFR Greater than 89 Microbiology 02/07/18 13:13 Aerobic Blood Culture - Preliminary Blood - Peripheral No growth in 3 days Anaerobic Blood Culture - Preliminary No growth in 3 days 02/07/18 13:04 Aerobic Blood Culture - Preliminary Blood - Peripheral No growth in 3 days Anaerobic Blood Culture - Preliminary No growth in 3 days Impressions Chest X-Ray 02/09/18 06:00 CONCLUSION: Bibasilar and right upper lung areas of consolidation or atelectasis. Mild right pleural effusion. Assessment and Plan - Assessment (1) Gangrene of toe Code(s): I96 - Gangrene, not elsewhere classified Status: Acute - Plan CTA ordered and not done yet. Patient refused to go down for the test yesterday communicated with radiology and will be done today will continue to follow Henri [facility] [phone]
[2018-02-10] MEDS: Enoxaparin Inj 40 MG/0.4 ML Syringe SQ SCH (21:15)
[2018-02-11] MEDS: Oral Hygiene Kit OROPHARYNG SCH ×5 (00:54→23:21)
--- NOTE | 2018-02-11 03:53 | CT ---
EXAM DATE: 02/11/2018 3:20 AM EST AGE/SEX: 32 years / Female INDICATIONS: Left foot and leg pain. Possible gangrene. CLINICAL DATA: This is the patient's initial encounter. Patient reports that signs and symptoms have been present for 2 days and indicates a pain score of 3/10. MEDICAL/SURGICAL HISTORY: . Sepsis. Leukocytosis. Hepatitis. None. RADIATION DOSE: 4.45 CTDI (mGy) COMPARISON: No prior exams available for comparison. TECHNIQUE: Volumetric scanning was performed using a multi-row detector CT scanner during bolus infu nesha of 100 ml Omnipaque 350 (iohexol) nonionic water-soluble contrast as a single exam dose. The data was post processed with a variety of visualization algorithms including full volume maximum inte nsity projection, multi-planar sliding thin slab reformation, curved planar reformation, and surface rendering techniques. Using automated exposure control and adjustment of the mA and/or kV according to patient size, radiation dose was kept as low as reasonably achievable to obtain optimal diagnostic quality images. DICOM format image data is available electronically for review and comparison. FINDINGS: Abdominal Aorta: The lumen is smooth without significant narrowing or aneurysmal dilation. The pr oximal celiac and superior mesenteric arteries are patent and normal in diameter. The main renal lilliana narayan bilaterally without gross abnormality. Accessory renal arteries are seen bilaterally. Bifurcation: Normal. Right Pelvis: The right common iliac, internal iliac, and external iliac vessels are patent without luminal irregularity. Left Pelvis: The left common iliac, internal iliac, and external iliac vessels are patent and withou t luminal irregularity. Right Thigh: The superficial femoral and profunda vessels are patent without luminal irregularity. Left Thigh: The superficial femoral and profunda vessels are patent without luminal irregularity. Right Knee: The distal femoral and popliteal arteries are patent without luminal irregularity. Left Knee: The distal femoral and popliteal arteries are patent without luminal irregularity. Right Leg: The trifurcation is intact. Left Leg: The trifurcation is intact. There is increased density at the posterior lower lungs bilaterally being more prominent on the right . There is a 3 cm cyst at the right lateral lower kidney. CONCLUSION: 1. Negative CTA. 2. Bibasilar areas of consolidation or atelectasis being worse in the right. Electronically signed by: Lv Tesfaye MD Board Certified Radiologist 02/11/2018 3:51 AM EST
[2018-02-11] MEDS: Piperacil/Tazo 4.5 GM Premix 4.5 GM/100 ML BAG IV.SIG SCH ×2 (05:54→10:53)
--- NOTE | 2018-02-11 07:25 | XR ---
EXAM DATE: 02/11/2018 7:13 AM EST AGE/SEX: 32 years / Female INDICATIONS: Respiratory distress. CLINICAL DATA: This is the patient's subsequent encounter. Patient reports that signs and symptoms h ave been present for 4 - 6 days and indicates a pain score of 0/10. MEDICAL/SURGICAL HISTORY: None. None. COMPARISON: C, CHEST 1V SINGLE AP, 02/09/2018. C, CHEST 1V SINGLE AP, 02/08/2018. C, CHEST 1V SINGLE AP, 02/07/2018. [facility], CHEST 1V SINGLE AP, 02/06/2018. . FINDINGS: Portable AP view of the chest demonstrates a normal-sized cardiac silhouette. EKG lines overlie the c hest. There is patchy airspace consolidation in the right midlung zone and right base and mild airspa ce opacity in the left lower lung zone. Right costophrenic angle remains blunted. No pneumothorax is identified. The bones and soft tissues demonstrate no acute abnormality. CONCLUSION: Stable chest x-ray with bibasilar and right midlung zone airspace consolidation with suspected small right pleural effusion. Electronically signed by: Lv Lawrence MD Board Certified Radiologist 02/11/2018 7:24 AM EST
[2018-02-11] MEDS: Chlorhexidine 0.12% Oral Kit 15 ML UDC OROPHARYNG SCH ×2 (08:25→19:26)
[2018-02-11] MEDS: Famotidine 20 MG Tablet PO SCH ×2 (08:26→20:18)
[2018-02-11] MEDS: Docusate Sodium Liq 100 MG/10 ML UDC PO SCH ×2 (08:26→21:35)
[2018-02-11] MEDS: Sodium Chloride 0.9% 2 ML Flush BID IV.FLUSH SCH ×2 (08:26→20:20)
[2018-02-11] MEDS: Carvedilol 12.5 MG Tablet PO SCH ×2 (08:26→20:17)
[2018-02-11] MEDS: guaiFENesin 600 MG ER Tablet PO SCH ×2 (08:26→20:18)
--- NOTE | 2018-02-11 09:00 | P.PNCC ---
Subjective Subjective Remarks/Hospital Course: This is a 32-year-old female that presented to the emergency department last evening. Per report reviewed the patient had complaints myalgias, nausea, vomiting diarrhea in conjunction fever and chills per review of the records the patient went to an urgent care center on and was diagnosed with the flu and subsequently sent home the patient stated her symptoms worsen so she presented to [facility] ED on 2017. Upon presentation imaging and laboratory studies were performed that initially revealed a significant leukocytosis with a WBC count of 20.8, hypokalemia and a chest x-ray revealing extensive bilateral airspace disease. The patient was bolused with IV fluids, and received prophylactic antibiotics, blood cultures were obtained. The patient was admitted to ICU at [facility] and ICU was consulted on 01/28/2018 at 2059 ,and was placed on BiPAP overnight with worsening symptomatology. Respiratory rate throughout the night was noted to be in the high 30s-50, with O2 saturation 87-91 % throughout the night. Upon my arrival this am, I examined the patient at 0615, and upon my evaluation this a.m. was noted to be extremely dyspneic, unable to speak secondary to extreme dyspnea, respiratory rate 48-50, and O2 sat 86-87%. A stat ABG was obtained PaO2 was noted to be 84, on 100%, and the patient kept stating she could not breathe. The patient was emergently intubated x1 attempt. Visually O2 saturation remained in the mid 80s-88 % on PEEP 12, FIO2 of 100%, with a slightly extended I- time. A stat ABG was performed PaO2 was noted to be 72, ventilator adjustments continued to optimize oxygenation. Emergent A-line was placed for frequent blood sampling, to evaluate oxygenation. The patient was noted to be in a sinus tach the patient was bolused with additional IV fluids 2 L and placed on sedation, to include, Versed , propofol, fentanyl infusions. The patient's past medical history is significant for hepatitis C, borderline personality disorder Funes acted 2017 secondary to chronic anxiety per records reviewed the patient takes Klonopin. 01/30: The patient's oxygenation moved by midday 01/29, and the patient was transferred via ambulance to [facility]. On her arrival the patient had a CVL placed, echo performed peer and the patient was placed on prone bed for prone positioning. Upon prone positioning, the patient's O2 saturation improved. FiO2 currently is at 60% when patient is in prone position with O2 sat of 100%. The patient remains deeply sedated with neuromuscular blockade Nemex for prone positioning. Urine output is equivalent to 1 cc/kg/h the patient was noted to have a metabolic acidosis this a.m., 50 mEq of sodium bicarbonate was given, IV fluids changed to one half normal saline at 100 cc/ hour. Noted lactic acidemia now resolved. One bottle blood culture showed gram -positive cocci. Discussed with patient's mother and permission granted to obtain HIV labs, deemed medically necessary per ID Dr. Carballo. 01/31: Decreasing FiO2 requirements at this time. Chest x-ray suggestive of interstitial edema, Lasix 40 mg x1 dose provided. IV fluids decreased to 42 cc/ hr . Secondary to prone positioning StatLock removed and central line sutured in place, to prevent possible dislodgment and prone position. Cultures revealed sputum MRSA, and blood gram-positive cocci. HIV testing labs negative. 02/01: Noted improvement clinically and respiratory status O2 requirements have been decreased 0.45% and a PEEP of 8. Patient noted to have a positive fluid balance was diuresed yesterday, chest x-ray shows persistent pulmonary edema Lasix dosing increased to twice daily IV fluids have now been discontinued. Noted thrombocytopenia, heparin platelet antibody has been ordered. Colitis currently being replaced. 02/02: fio2 continues to improve. supinated today and remains stable x 8 hrs. can likely transition off RotaProne bed today. continues to be very volume overloaded, although adequate start to diuresis yesterday. 02/03: The patient was removed from rota prone bread at 1800 yesterday. The patient continues to improve oxygenation. Versed continually being weaned down in anticipation for CPAP trials. Dietary consult has been initiated for tube feeds. 02/04: Afebrile. the patient remained on CPAP trials throughout yesterday afternoon, placed back on a rate last evening. CPAP trials have been reinitiated this a.m. SBT parameters currently being obtain ABG within normal limits plan for possible extubation today 02/05 Tolerated extubation yesterday and remains on 5 L nasal cannula. Has passed bedside swallow evaluation and is requesting to advance diet. Temp max 100.5. Sputum culture 02/03 pending. On cefepime, azithro and vanc per ID. Has been diuresed aggressively. Creatinine normal, alkalosis. Remove invasive lines and Garcia today. Out of bed 02/06 Alkalosis has given way to bicarb of 18.4 following diamox. She is on 6 L NC but is tachypneic, more dyspneic today. +thick sputum production and respiratory muscle weakness are contributing. Guafenesin/nebs/EZPAP. Bipap to support now. May require reintubation, but trying to avoid. Subjective: 02/07 On and off Bipap. She is very weak with critical illness polyneuropathy and I believe this is contributing to her ongoing respiratory issues. Appreciate staff assistance with aggressive pulmonary toilet. Bibasilar infiltrates have persisted. Antibiotics adjusted to zosyn/linezolid yesterday per ID. No fever. She does have uptrending leukocytosis. Will d/c steroids to effort to mitigate weakness. Family and patient aware she may require intubation (which could very well lead to trach due to her weakness). 02/08: Remains very weak from critical illness neuropathy and myopathy. She is requiring on and off BiPAP still. Very coarse rhonchi bilaterally. Chest x- ray shows some increase in upper lobe infiltrates. Pt/Ot. Plan bedside ultrasound to evaluate right effusion 02/09/18: Continues to be quite weak with rhonchorous breath. Bilateral scattered rhonchi and some inspiratory wheezing. Chest x-ray is stable to slightly worsening infiltrates. 02/10/18: Lying in bed appears slightly more comfortable right chest exam more clear. Left lung still has coarse rhonchi and some wheezing. Urine output more than 1.8 L in 24 hours. No bowel movements since per patient. Bowel regimen started 02/11/18: Improved exam today clinically also improved maintaining good oxygen saturation. Bilateral coarse rhonchi still present but improved. Chest x-ray stable to slight improvement in infiltrates Objective Vital Signs / I&O: Vital Signs 02/10/18 09:00 02/10/18 10:00 02/10/18 11:00 Temperature Pulse Rate 86 117 H 106 H Respiratory Rate Blood Pressure 102/59 L 108/57 L 115/56 L Pulse Oximetry 97 96 02/10/18 11:40 02/10/18 12:00 02/10/18 13:00 Temperature Pulse Rate 102 H 102 H 125 H Respiratory Rate 18 Blood Pressure 104/59 L 113/64 Pulse Oximetry 96 97 02/10/18 14:00 02/10/18 15:00 02/10/18 16:00 Temperature Pulse Rate 112 H 89 113 H Respiratory Rate Blood Pressure 106/74 110/60 110/55 L Pulse Oximetry 93 L 99 97 02/10/18 16:06 02/10/18 17:00 02/10/18 18:00 Temperature Pulse Rate 104 H 108 H 100 H Respiratory Rate 18 Blood Pressure 113/58 L Pulse Oximetry 96 02/10/18 18:20 02/10/18 19:00 02/10/18 20:00 Temperature Pulse Rate 94 H 107 H 100 H Respiratory Rate Blood Pressure 113/63 103/55 L 107/61 Pulse Oximetry 97 96 94 L 02/10/18 21:00 02/10/18 21:08 02/10/18 22:00 Temperature Pulse Rate 102 H 110 H 115 H Respiratory Rate 21 Blood Pressure 96/53 L 97/55 L Pulse Oximetry 94 L 95 97 02/10/18 23:00 02/11/18 00:00 02/11/18 00:20 Temperature Pulse Rate 107 H 95 H 89 Respiratory Rate 20 20 Blood Pressure 89/53 L 92/50 L Pulse Oximetry 97 98 98 02/11/18 00:54 02/11/18 01:00 02/11/18 02:00 Temperature Pulse Rate 98 H 88 Respiratory Rate 20 Blood Pressure 85/54 L 87/53 L Pulse Oximetry 97 98 02/11/18 03:00 02/11/18 04:00 02/11/18 05:00 Temperature Pulse Rate 90 91 H 100 H Respiratory Rate 20 Blood Pressure 89/50 L 90/52 L 92/56 L Pulse Oximetry 98 97 96 02/11/18 06:00 02/11/18 07:00 02/11/18 08:00 Temperature 98.8 F Pulse Rate 90 93 H 81 Respiratory Rate Blood Pressure 95/56 L 92/60 L 95/53 L Pulse Oximetry 99 99 92 L 02/11/18 08:09 Temperature Pulse Rate 88 Respiratory Rate 20 Blood Pressure Pulse Oximetry 92 L Intake & Output 02/10/18 02/11/18 02/11/18 18:59 06:59 18:59 Intake Total 2180 / 2180 700 / 700 100 / 100 Output Total 1300 / 1300 600 / 600 Balance 880 / 880 100 / 100 100 / 100 Weight 61 kg Intake: IV 500 / 500 100 / 100 100 / 100 Zyvox 600 mg Premix 300 ML @ 300 / 300 300 mls/hr IV.SIG Q12H BENOIT Rx#: [id number] Zosyn 4.5 GM Premix 4.5 gm In 200 / 200 100 / 100 100 / 100 100 ml @ 200 mls/hr IV.SIG Q6H BENOIT Rx#:[id number] Oral 1680 / 1680 600 / 600 Output: Urine 1000 / 1000 Urine Amount (Catheter) 300 / 300 600 / 600 Straight 300 / 300 600 / 600 Other: # Voids 1 Date of Last Bowel Movement 02/03/18 02/03/18 02/03/18 # Bowel Movements 0 Result Diagrams: 02/09/18 09:10 02/10/18 07:05 Objective Remarks: GENERAL: Young female, lying in bed, alert and conversant. Breathing more comfortably SKIN: Warm and dry. HEAD: Atraumatic. Normocephalic. EYES: Pupils equal and round. No scleral icterus. No injection or drainage. ENT: Currently on facemask NECK: Trachea midline. No JVD. CARDIOVASCULAR: Regular rhythm. sinus on the monitor. RESPIRATORY: Some accessory muscle use. Rales in right base. Scattered Bilateral rhonchi predominantly left chest. GASTROINTESTINAL: Abdomen soft, non-tender, nondistended. Bowel sounds present. MUSCULOSKELETAL: Extremities without clubbing, cyanosis, trace edema. No obvious deformities. Bruising noted on right forehead left great toe 2/2 rota prone bed positioning. Also skin breakdown medial lower legs bilaterally. Right big toe has an area of gangrene medially NEUROLOGICAL: Awake, oriented to person, place, circumstance. She does move all extremities to command. Hip flexor 3/5, hamstring 2/5, wiggles toes. weak chisel worker strength bilaterally, deltoids 3/5, biceps 2/5. Procedures: 01/31: Sutured right IJ, StatLock removed. Assessment and Plan - Problem List (1) Acute respiratory failure with hypoxia and hypercarbia Code(s): J96.01 - Acute respiratory failure with hypoxia; J96.02 - Acute respiratory failure with hypercapnia Status: Resolved (2) Hepatitis Code(s): K75.9 - Inflammatory liver disease, unspecified Status: Acute (3) Bilateral pneumonia Code(s): J18.9 - Pneumonia, unspecified organism Status: Acute (4) Sepsis Code(s): A41.9 - Sepsis, unspecified organism Status: Acute (5) Hypoxia Code(s): R09.02 - Hypoxemia Status: Acute (6) Leukocytosis Code(s): D72.829 - Elevated white blood cell count, unspecified Status: Acute (7) Hyperglycemia Code(s): R73.9 - Hyperglycemia, unspecified Status: Acute (8) Thrombocytopenia Code(s): D69.6 - Thrombocytopenia, unspecified Status: Acute (9) Polyneuropathy associated with critical illness Code(s): G62.81 - Critical illness polyneuropathy Status: Acute - Assessment and Plan Plan: Plan by systems: Neurologic: Anxiety disorder Borderline personality disorder Substance use disordercocaine abuse Acetaminophen 650 mg every 6 hours as needed for temperature greater than 101.0 01/28 urine drug screen-positive for cocaine Critical illness polyneuropathy OT consult. Daily PT. Out of bed to chair. Respiratory: Acute hypoxemic and hypercarbic respiratory failure Bilateral pneumonia ARDS-improving bilateral pulmonary edema- severe Tobacco use disorder DuoNeb q4/EZPAP. Guaifenesin 600 bid. suction prn. Acapella Resp muscle weakness contributing, supporting resp effort with BIPAP as needed D/cd solumedrol. Pulmonology following. Legionella, pneumococcal urine antigens-neg. Influenza antigens A/Bneg. 01/29-intubated 7.5 ETT 22 at the [facility], Extubated 02/04 Dr. Syed following. On Lasix 40 a95-yuaxof to 20 every 12 Cardiovascular: Right big toe gangrene Maintain MAP > 65mmHg 01/28 Echo EF 40-45%, moderately dilated left ventricle, LAD infarct vs. Taktsubo cardiomyopathy, no vegetations noted PAP 42 Repeat bedside echo 02/10/2018 appears to show improved LVEF, prior to discharge will need full echo/stress echo Coreg 12.5 bid[address]SA [address] Mendoza evaluated, plan for stress when stabilized and out of ICU. Appreciate vascular surgery consult by Dr. Todd, CTA with runoff when stable Renal/FEN: Removed Garcia 02/05. KCL 20 mEq po bid while on Lasix. Monitoring creatinine. GI: Hepatitis C Transaminitis Metabolic alkalosis resolved. Hypernatremia - Related to diuresis. Patient should self-correct now that diet advanced. Hypokalemia Regular diet. Ensure tid. Monitor CMP Electrolyte replacement per ICU protocol Heme/ID: MRSA Pneumonia Severe sepsis Leukocytosis-resolved ARDS Hepatitis C AB positive - RNA viral load pending. Thrombocytopenia 01/28-Legionella, mycoplasma, pneumococcal antigens-negative 01/28 sputum culture-negative Viral respiratory PCR negative. ID consulted-Dr. Carballo following. On Zosyn, linezolid per ID. 01/28 Blood MRSA. Subsequent Blood culture 02/02 NGTD. HIV- negative, CD4 185 F/U HCV PCR 02/02 Heparin platelet antibody-negative Endocrine: Hyperglycemia of critical illness No longer requiring insulin. Prophylaxis: GI Prophylaxis famotidine DVT Prophylaxis -- SCDs Lines: PIV. D/c R IJ CVL (01/29-02/05 , Right rad arterial line d/c'd 02.05. Arterial line left radial (dc'd 02/01), Mother and grandmother updated 02/[address] Moreno and multiple questions answered. Level 2 follow-up Code Status: Full (3) Bilateral pneumonia Qualifiers: Pneumonia type: due to unspecified organism Lung location: unspecified part of lung Qualified Code(s): J18.9 - Pneumonia, unspecified organism (4) Sepsis Qualifiers: Sepsis type: sepsis due to unspecified organism Qualified Code(s): A41.9 - Sepsis, unspecified organism (6) Leukocytosis Qualifiers: Leukocytosis type: unspecified Qualified Code(s): D72.829 - Elevated white blood cell count, unspecified
--- NOTE | 2018-02-11 10:44 | P.PNPL ---
Subjective Interval history: Patient is lying in bed in NAD. Afebrile. Physical Exam Vital signs: Vital Signs 02/10/18 11:00 02/10/18 11:40 02/10/18 12:00 Temperature Pulse Rate 106 H 102 H 102 H Respiratory Rate 18 Blood Pressure 115/56 L 104/59 L Pulse Oximetry 96 02/10/18 13:00 02/10/18 14:00 02/10/18 15:00 Temperature Pulse Rate 125 H 112 H 89 Respiratory Rate Blood Pressure 113/64 106/74 110/60 Pulse Oximetry 97 93 L 99 02/10/18 16:00 02/10/18 16:06 02/10/18 17:00 Temperature Pulse Rate 113 H 104 H 108 H Respiratory Rate 18 Blood Pressure 110/55 L 113/58 L Pulse Oximetry 97 96 02/10/18 18:00 02/10/18 18:20 02/10/18 19:00 Temperature Pulse Rate 100 H 94 H 107 H Respiratory Rate Blood Pressure 113/63 103/55 L Pulse Oximetry 97 96 02/10/18 20:00 02/10/18 21:00 02/10/18 21:08 Temperature Pulse Rate 100 H 102 H 110 H Respiratory Rate 21 Blood Pressure 107/61 96/53 L Pulse Oximetry 94 L 94 L 95 02/10/18 22:00 02/10/18 23:00 02/11/18 00:00 Temperature Pulse Rate 115 H 107 H 95 H Respiratory Rate 20 Blood Pressure 97/55 L 89/53 L 92/50 L Pulse Oximetry 97 97 98 02/11/18 00:20 02/11/18 00:54 02/11/18 01:00 Temperature Pulse Rate 89 98 H Respiratory Rate 20 20 Blood Pressure 85/54 L Pulse Oximetry 98 97 02/11/18 02:00 02/11/18 03:00 02/11/18 04:00 Temperature Pulse Rate 88 90 91 H Respiratory Rate 20 Blood Pressure 87/53 L 89/50 L 90/52 L Pulse Oximetry 98 98 97 02/11/18 05:00 02/11/18 06:00 02/11/18 07:00 Temperature Pulse Rate 100 H 90 93 H Respiratory Rate Blood Pressure 92/56 L 95/56 L 92/60 L Pulse Oximetry 96 99 99 02/11/18 08:00 02/11/18 08:09 02/11/18 10:00 Temperature 98.8 F Pulse Rate 81 88 111 H Respiratory Rate 20 Blood Pressure 95/53 L Pulse Oximetry 92 L 92 L Intake & Output 02/10/18 02/11/18 02/11/18 18:59 06:59 18:59 Intake Total 2180 / 2180 700 / 700 100 / 100 Output Total 1300 / 1300 600 / 600 Balance 880 / 880 100 / 100 100 / 100 Weight 61 kg Intake: IV 500 / 500 100 / 100 100 / 100 Zyvox 600 mg Premix 300 ML @ 300 / 300 300 mls/hr IV.SIG Q12H BENOIT Rx#: [id number] Zosyn 4.5 GM Premix 4.5 gm In 200 / 200 100 / 100 100 / 100 100 ml @ 200 mls/hr IV.SIG Q6H [facility]ENO[facility] Rx#:[id number] Oral 1680 / 1680 600 / 600 Output: Urine 1000 / 1000 Urine Amount (Catheter) 300 / 300 600 / 600 Straight 300 / 300 600 / 600 Other: # Voids 1 Date of Last Bowel Movement 02/03/18 02/03/18 02/03/18 # Bowel Movements 0 - Constitutional no acute distress - Routine HEENT Exam Head: Present: normocephalic, atraumatic Eye: Present: EOMI, PERRL, normal accommodation, conjunctivae pink ENT: Present: mucous membranes moist - Routine Neck Exam Present: supple, full ROM, trachea midline - Routine Respiratory Exam Present: CTA bilaterally - Routine Cardiovascular Exam Present: RRR, S1, S2 - Routine Abdominal Exam Present: soft, normoactive bowel sounds - Routine Skin Exam Present: intact - Routine Neurological Exam Present: alert, oriented X3, CN II-XII intact - Urinary Catheter Management Indwelling Urethral Catheter Cath placed during this visit: yes Reason for continuing: Other continuation reason Insertion date: 01/29/18 Insertion time: 07:15 Straight Cath placed during this visit: yes, but has since been removed by the nurse Reason for continuing: Not indwelling catheter Insertion date: 02/10/18 Insertion time: 22:00 Removal date: 02/10/18 Removal time: 22:05 Assessment and Plan - Assessment (1) Acute respiratory failure with hypoxia and hypercarbia Code(s): J96.01 - Acute respiratory failure with hypoxia; J96.02 - Acute respiratory failure with hypercapnia Status: Resolved (2) Hepatitis Code(s): K75.9 - Inflammatory liver disease, unspecified Status: Acute (3) Bilateral pneumonia Code(s): J18.9 - Pneumonia, unspecified organism Status: Acute Qualifiers: Pneumonia type: due to unspecified organism Lung location: unspecified part of lung Qualified Code(s): J18.9 - Pneumonia, unspecified organism (4) Sepsis Code(s): A41.9 - Sepsis, unspecified organism Status: Acute Qualifiers: Sepsis type: sepsis due to unspecified organism Qualified Code(s): A41.9 - Sepsis, unspecified organism (5) Hypoxia Code(s): R09.02 - Hypoxemia Status: Acute (6) Leukocytosis Code(s): D72.829 - Elevated white blood cell count, unspecified Status: Acute Qualifiers: Leukocytosis type: unspecified Qualified Code(s): D72.829 - Elevated white blood cell count, unspecified (7) Hyperglycemia Code(s): R73.9 - Hyperglycemia, unspecified Status: Acute (8) Thrombocytopenia Code(s): D69.6 - Thrombocytopenia, unspecified Status: Acute (9) Polyneuropathy associated with critical illness Code(s): G62.81 - Critical illness polyneuropathy Status: Acute - Plan 1. Resp Insuff s/p Extubation 02/04 2. s/p ARDS 3. MRSA pneumonia. 4. Staphylococcus aureus bacteremia. 5. Hepatitis C. 6. Anemia. 7. Thrombocytopenia. 8. Leukocytosis Plan Continue with oxygen and maintain sats >92%. Bronchodilators, IS BIPAP PRN CXR today bibasilar and right midlung zone airspace consolidation with suspected small right pleural effusion. Abx per ID -Zyvox, Zosyn. Monitor for signs of infections ( fever, WBC). ID is following. 01/28 BC: Staph Aureus. Sputum cx: MRSA 01/29 & 02/03, 02/07. Influenza screening negative on 01/28, Strep pneumonia and Legionella urinary Ag negative on 01/29 BC from 02/02: NGTD On Lasix 20mg BID. Electrolytes replacement per protocol. Vascular surg is following for Right big toe gangrene medially- CTA runoff: Negative CTA. Bibasilar areas of consolidation or atelectasis being worse in the right. GI/DVT prophylaxis. on Pepcid 20 mg q.12 and Lovenox 40 mg subcutaneous daily.
--- NOTE | 2018-02-11 12:50 | P.PNVS ---
Subjective Subjective/Hospital Course: no acute issues Objective Vital Signs / I&O: Vital Signs 02/10/18 13:00 02/10/18 14:00 02/10/18 15:00 Temperature Pulse Rate 125 H 112 H 89 Respiratory Rate Blood Pressure 113/64 106/74 110/60 Pulse Oximetry 97 93 L 99 02/10/18 16:00 02/10/18 16:06 02/10/18 17:00 Temperature Pulse Rate 113 H 104 H 108 H Respiratory Rate 18 Blood Pressure 110/55 L 113/58 L Pulse Oximetry 97 96 02/10/18 18:00 02/10/18 18:20 02/10/18 19:00 Temperature Pulse Rate 100 H 94 H 107 H Respiratory Rate Blood Pressure 113/63 103/55 L Pulse Oximetry 97 96 02/10/18 20:00 02/10/18 21:00 02/10/18 21:08 Temperature Pulse Rate 100 H 102 H 110 H Respiratory Rate 21 Blood Pressure 107/61 96/53 L Pulse Oximetry 94 L 94 L 95 02/10/18 22:00 02/10/18 23:00 02/11/18 00:00 Temperature Pulse Rate 115 H 107 H 95 H Respiratory Rate 20 Blood Pressure 97/55 L 89/53 L 92/50 L Pulse Oximetry 97 97 98 02/11/18 00:20 02/11/18 00:54 02/11/18 01:00 Temperature Pulse Rate 89 98 H Respiratory Rate 20 20 Blood Pressure 85/54 L Pulse Oximetry 98 97 02/11/18 02:00 02/11/18 03:00 02/11/18 04:00 Temperature Pulse Rate 88 90 91 H Respiratory Rate 20 Blood Pressure 87/53 L 89/50 L 90/52 L Pulse Oximetry 98 98 97 02/11/18 05:00 02/11/18 06:00 02/11/18 07:00 Temperature Pulse Rate 100 H 90 93 H Respiratory Rate Blood Pressure 92/56 L 95/56 L 92/60 L Pulse Oximetry 96 99 99 02/11/18 08:00 02/11/18 08:09 02/11/18 10:00 Temperature 98.8 F Pulse Rate 81 88 111 H Respiratory Rate 20 Blood Pressure 95/53 L Pulse Oximetry 92 L 92 L 02/11/18 12:21 Temperature Pulse Rate 104 H Respiratory Rate 20 Blood Pressure Pulse Oximetry Intake & Output 02/10/18 02/11/18 02/11/18 18:59 06:59 18:59 Intake Total 2180 / 2180 700 / 700 500 / 500 Output Total 1300 / 1300 600 / 600 Balance 880 / 880 100 / 100 500 / 500 Weight 61 kg Intake: IV 500 / 500 100 / 100 500 / 500 Zyvox 600 mg Premix 300 ML @ 300 / 300 300 / 300 300 mls/hr IV.SIG Q12H BENOIT Rx#: [id number] Zosyn 4.5 GM Premix 4.5 gm In 200 / 200 100 / 100 200 / 200 100 ml @ 200 mls/hr IV.SIG Q6H BENOIT Rx#:[id number] Oral 1680 / 1680 600 / 600 Output: Urine 1000 / 1000 Urine Amount (Catheter) 300 / 300 600 / 600 Straight 300 / 300 600 / 600 Other: # Voids 1 Date of Last Bowel Movement 02/03/18 02/03/18 02/03/18 # Bowel Movements 0 Physical Exam: Right first toe wound stable Microbiology 02/07/18 13:13 Aerobic Blood Culture - Preliminary Blood - Peripheral No growth in 4 days Anaerobic Blood Culture - Preliminary No growth in 4 days 02/07/18 13:04 Aerobic Blood Culture - Preliminary Blood - Peripheral No growth in 4 days Anaerobic Blood Culture - Preliminary No growth in 4 days Impressions Aorta w/Runoff CTA 02/10/18 00:00 CONCLUSION: 1. Negative CTA. 2. Bibasilar areas of consolidation or atelectasis being worse in the right. Chest X-Ray 02/11/18 06:47 CONCLUSION: Stable chest x-ray with bibasilar and right midlung zone airspace consolidation with suspected small right pleural effusion. Assessment and Plan - Assessment (1) Gangrene of toe Code(s): I96 - Gangrene, not elsewhere classified Status: Acute - Plan CTA reviewed No disease noted No vascular surgery intervention needed will sign off, please call with questions Henri Todd [facility] [phone]
--- NOTE | 2018-02-11 13:05 | P.PNID ---
Subjective Remarks: Patient is currently up in bedside stretcher chair. She is on nasal O2. Awake and alert. Speaks in a soft voice. States that she is okay. Wants to be put back into bed. Afebrile. 32-year-old white female who presented to the emergency department yesterday evening with respiratory symptoms. Emergency department report stated that the patient developed symptoms about a week ago consisting of body aches, nausea, vomiting, diarrhea, fever, chills, and sweats. She was seen at an urgent care center about a week ago and was diagnosed with flu. She subsequently developed a sore throat and pain on swallowing and loss of the voice as well as nonproductive cough. Her energy level is also reported to be very low. The patient was seen in the emergency department and temperature was 98.6, heart rate was elevated at 122, and white count was elevated at 20.8. She was put on nonrebreather mask and oxygen saturation was noted to be between 88% and 92%. The patient was subsequently intubated. Antibiotics: Zosyn zyvox Past Medical History: Reportedly negative. The patient has been evaluated for psychiatric adjustment disorder. Allergies/Adverse Reactions: Allergies Sulfa (Sulfonamide Antibiotics) Allergy (Intermediate, Verified 05/14/17 22:25) PT STATES INCREASES HER TEMP Objective Vital Signs 02/10/18 14:00 02/10/18 15:00 02/10/18 16:00 Temperature Pulse Rate 112 H 89 113 H Respiratory Rate Blood Pressure 106/74 110/60 110/55 L Pulse Oximetry 93 L 99 97 02/10/18 16:06 02/10/18 17:00 02/10/18 18:00 Temperature Pulse Rate 104 H 108 H 100 H Respiratory Rate 18 Blood Pressure 113/58 L Pulse Oximetry 96 02/10/18 18:20 02/10/18 19:00 02/10/18 20:00 Temperature Pulse Rate 94 H 107 H 100 H Respiratory Rate Blood Pressure 113/63 103/55 L 107/61 Pulse Oximetry 97 96 94 L 02/10/18 21:00 02/10/18 21:08 02/10/18 22:00 Temperature Pulse Rate 102 H 110 H 115 H Respiratory Rate 21 Blood Pressure 96/53 L 97/55 L Pulse Oximetry 94 L 95 97 02/10/18 23:00 02/11/18 00:00 02/11/18 00:20 Temperature Pulse Rate 107 H 95 H 89 Respiratory Rate 20 20 Blood Pressure 89/53 L 92/50 L Pulse Oximetry 97 98 98 02/11/18 00:54 02/11/18 01:00 02/11/18 02:00 Temperature Pulse Rate 98 H 88 Respiratory Rate 20 Blood Pressure 85/54 L 87/53 L Pulse Oximetry 97 98 02/11/18 03:00 02/11/18 04:00 02/11/18 05:00 Temperature Pulse Rate 90 91 H 100 H Respiratory Rate 20 Blood Pressure 89/50 L 90/52 L 92/56 L Pulse Oximetry 98 97 96 02/11/18 06:00 02/11/18 07:00 02/11/18 08:00 Temperature 98.8 F Pulse Rate 90 93 H 81 Respiratory Rate Blood Pressure 95/56 L 92/60 L 95/53 L Pulse Oximetry 99 99 92 L 02/11/18 08:09 02/11/18 10:00 02/11/18 12:21 Temperature Pulse Rate 88 111 H 104 H Respiratory Rate 20 20 Blood Pressure Pulse Oximetry 92 L Intake & Output 02/10/18 02/11/18 02/11/18 18:59 06:59 18:59 Intake Total 2180 / 2180 700 / 700 500 / 500 Output Total 1300 / 1300 600 / 600 Balance 880 / 880 100 / 100 500 / 500 Weight 61 kg Intake: IV 500 / 500 100 / 100 500 / 500 Zyvox 600 mg Premix 300 ML @ 300 / 300 300 / 300 300 mls/hr IV.SIG Q12H [facility]ENO[facility] Rx#: [id number] Zosyn 4.5 GM Premix 4.5 gm In 200 / 200 100 / 100 200 / 200 100 ml @ 200 mls/hr IV.SIG Q6H [facility] Rx#:[id number] Oral 1680 / 1680 600 / 600 Output: Urine 1000 / 1000 Urine Amount (Catheter) 300 / 300 600 / 600 Straight 300 / 300 600 / 600 Other: # Voids 1 Date of Last Bowel Movement 02/03/18 02/03/18 02/03/18 # Bowel Movements 0 02/07/18 13:13 Blood - Peripheral Aerobic Blood Culture - Preliminary No growth in 4 days 02/07/18 13:13 Blood - Peripheral Anaerobic Blood Culture - Preliminary No growth in 4 days 02/07/18 13:04 Blood - Peripheral Aerobic Blood Culture - Preliminary No growth in 4 days 02/07/18 13:04 Blood - Peripheral Anaerobic Blood Culture - Preliminary No growth in 4 days 02/07/18 10:00 Sputum - Expectorated Sputum Gram Stain - Final 02/07/18 10:00 Sputum - Expectorated Sputum Sputum Culture - Final S. aureus MRSA Lab - Chemistry Results 02/10/18 07:05 Creatinine 0.52 Estimated GFR Greater than 89 Imaging: ITS Impressions Chest CT 01/28/18 18:20 CONCLUSION: Extensive bilateral airspace disease Abdomen X-Ray 02/03/18 00:37 CONCLUSION: 1. OG tube tip in the distal stomach near the duodenal bulb. Venous Doppler Study 02/07/18 13:15 CONCLUSION: The study is negative for bilateral lower extremity deep venous thrombosis. Aorta w/Runoff CTA 02/10/18 00:00 CONCLUSION: 1. Negative CTA. 2. Bibasilar areas of consolidation or atelectasis being worse in the right. Chest X-Ray 02/11/18 06:47 CONCLUSION: Stable chest x-ray with bibasilar and right midlung zone airspace consolidation with suspected small right pleural effusion. Physical Exam: GENERAL: Awake and alert. No acute distress. Looks a little drowsy. HEENT: Extraocular movements grossly intact. Pupils reactive to light. No icterus. NECK: No adenopathy or swelling. LUNGS: Basilar rhonchi. HEART: Normal S1 and S2, without audible murmurs, rubs, or gallops. ABDOMEN: Decreased bowel sounds. Soft, nontender. No palpable mass. EXTREMITIES: No clubbing. No cyanosis, trace edema.. SKIN: No rash. warm and moist. NEUROLOGIC: Nonfocal PSYCHIATRIC: Calm. Lines without evidence of infection. Assessment and Plan - Plan IMPRESSION: 1. Bilateral pneumonia. MRSA. 2. Bacteremia. Staph aureus. MSSA. 3. Hypoxia. 4. Acute respiratory failure. Extubated. Improved. 5. Elevated liver function tests. Improved. 6. Leukocytosis. WBC still elevated. 7. ALLERGY TO SULFA. Slowly improving. RECOMMENDATIONS: 1. Stop Zosyn 2. Continue linezolid 3. Follow clinical status. 4. Monitor the white blood cell count.
--- NOTE | 2018-02-11 15:09 | P.DIET ---
Nutritional Evaluation Type of nutrition evaluation: follow-up Nutrition consult regarding: Tube Feeding [place] [facility] [place] [facility] [place] [facility] [place] Objective - Diagnosis Bilateral Pneumonia w/Hypoxia, Sepsis, Leukocytosis - Objective % IBW: 109 Body Weight Used for Calculations: Actual (66.6 kg) Energy Needs - Lower Range (kCal/kg): 25 Energy Needs - Upper Range (kCal/kg): 30 Lower Limit kCal/kg (kCals): 1,665 Upper Limit kCal/kg (kCals): 1,998 Lower Limit Protein Factor (Grams per Kg): 1.1 Upper Limit Protein Factor (Grams per Kg): 1.3 Lower Protein Needs (Protein): 73 Upper Protein Needs (Protein): 87 Dietitian Reviewed in Medical Record: Curent medications, Intake & Output, Labs , Medical history Diet Order: regular, ensure original x3 Oral Diet Intake Amount: Fair 50-75% Objective Comments: PMH includes: Hep C, borderline personality, anxiety LBM 02/03 Assessment Assessment: Pt remains at high nutritional risk r/t diagnosis. Pt seen to be sleeping soundly during RD visit. Pt passed a speech swallow eval after being extubated on 02/04, diet now advanced to regular. Spoke w/ RN about pts PO intake, per RN pt had a good appetite, ate around 80% of her breakfast and finished most of her ensure. RD recommend continuing Ensure Enlive TID as PO supplement for additional nutrition. Continue to monitor PO and supplement intake. Labs reviewed, dietitian following. Recommendations: 1. RD recommend continuing Ensure Enlive TID as PO supplement for additional nutrition 2. Continue to monitor PO and supplement intake 3. Dietitian following Dietitian to Monitor: Lab values, Supplement acceptance, Intake & Output, Diet tolerance, Weight change, PO Intake, Medical course
--- NOTE | 2018-02-11 16:28 | P.CONPOD ---
History of Present Illness Service: podiatry Consult date: 02/11/18 Reason for Consult: right hallux discoloration Primary Care Provider: Con Guerrero DO Chief Complaint: Right great toe gangrene History of Present Illness: Patient in house for pneumonia and does not remember an injury to right great toe. She says it does not hurt and has been dark since she woke up Review of Systems All other systems reviewed negative except as stated in HPI PMFSH - History History Provided By: Patient - Medical History Medical History: Medical History (Last Reviewed 02/11/18 @ 08:12 by Tariq Pugh, PT) History of MRSA infection Onset Date: ~01/29/18 Patient denies medical problems - Surgical History Surgical History: Surgical History (Last Reviewed 02/11/18 @ 08:12 by Tariq Pugh, PT) No history of previous surgery - Tobacco History Tobacco Use In Past 30 Days: Yes Smoking Status: Current every day smoker Tobacco Type: Cigarettes - Alcohol History How Often Do You Have a Drink Containing Alcohol: Never - Substance Use History Substance History: No History of Abuse - Travel History Recent Travel in the [place] Within the Last 8 Weeks: No Recent Travel Out of the Country Within the Last 8 Weeks: No - Immunization History Tetanus Immunization: Unable to Assess Hx Influenza Vaccine This Season: No Medications and Allergies Active Medications: Active Medications Hydrocodone Bitart/Acetaminophen ([place] 7.5/325) 1 tab PO Q6H PRN PRN Reason: pain 5-10 Last Admin: 02/11/18 06:30 Dose: 1 tab Albuterol (Duoneb Neb (Prn)) 1 ampul NEB Q2HR NEB PRN PRN Reason: DYSPNEA Last Admin: 02/07/18 21:16 Dose: 1 ampul Albuterol (Albuterol Neb (Prn)) 2.5 mg NEB Q2HR NEB PRN PRN Reason: WHEEZING Last Admin: 02/07/18 17:51 Dose: 2.5 mg Albuterol (Duoneb Neb (Chanda)) 1 ampul NEB Q4HR NEB CHANDA Last Admin: 02/11/18 15:44 Dose: 1 ampul Aspirin (Ecotrin) 81 mg PO DAILY CHANDA Last Admin: 02/11/18 08:26 Dose: 81 mg Carvedilol (Coreg) 12.5 mg PO BID CHANDA Last Admin: 02/11/18 08:26 Dose: 12.5 mg Chlorhexidine Gluconate (Peridex 0.12% Oral Kit) 15 ml OROPHARYNG BID@0800, 2000 [facility] Last Admin: 02/11/18 08:25 Dose: Not Given Docusate Sodium (Colace Liq) 100 mg PO BID [facility] Last Admin: 02/11/18 08:26 Dose: 100 mg Enalapril Maleate (Vasotec) 10 mg PO BID [facility] Last Admin: 02/11/18 08:26 Dose: 10 mg Enoxaparin Sodium (Lovenox Inj) 40 mg SQ Q24H [facility] Last Admin: 02/10/18 21:15 Dose: 40 mg Famotidine (Pepcid) 20 mg PO BID [facility] Last Admin: 02/11/18 08:26 Dose: 20 mg Furosemide (Lasix Inj) 20 mg IV.PUSH BID@0900,1800 [facility] Guaifenesin (Mucinex Er) 600 mg PO BID [facility] Last Admin: 02/11/18 08:26 Dose: 600 mg Magnesium Sulfate 2 gm/ Sodium (Chloride) 100 mls @ 50 mls/hr IV.SIG UNSCH PRN PRN Reason: For Magnesium 1.2 - 1.6 mg/dL Last Infusion: 01/30/18 00:12 Dose: Infused Potassium Chloride (Kcl 40 Meq Premix Inj) 40 meq in 100 mls @ 25 mls/hr IV.SIG Q2H PRN PRN Reason: For Potassium 2.8 - 3.2 mEq/L Last Infusion: 02/03/18 08:25 Dose: Infused Potassium Chloride (Kcl 20 Meq Premix Inj) 20 meq in 100 mls @ 50 mls/hr IV.SIG Q2H PRN PRN Reason: For Potassium 3.3 - 3.5 mEq/L Potassium Chloride (Kcl 40 Meq Premix Inj) 40 meq in 100 mls @ 25 mls/hr IV.SIG UNSCH PRN PRN Reason: For Potassium 3.3 - 3.5 mEq/L Last Infusion: 02/04/18 07:23 Dose: Infused Potassium Chloride (Kcl 20 Meq Premix Inj) 20 meq in 100 mls @ 50 mls/hr IV.SIG Q2H PRN PRN Reason: For Potassium 2.8 - 3.2 mEq/L Last Infusion: 02/08/18 21:00 Dose: Infused Magnesium Sulfate 4 gm/ Sodium (Chloride) 100 mls @ 50 mls/hr IV.SIG UNSCH PRN PRN Reason: For Magnesium 0.9 - 1.1 mg/dL Potassium Phosphate 30 mmol/ (Sodium Chloride) 260 mls @ 42 mls/hr IV.SIG UNSCH PRN PRN Reason: SEE LABEL COMMENTS Last Infusion: 02/03/18 14:34 Dose: Infused Sodium Glycerophosphate 30 (mmol/ Sodium Chloride) 280 mls @ 42 mls/hr IV.SIG UNSCH PRN PRN Reason: For Phosphorus < 2.5 mg/dL Last Infusion: 02/04/18 17:49 Dose: Infused Linezolid (Zyvox 600 Mg Premix) 300 mls @ 300 mls/hr IV.SIG Q12H CHANDA Last Admin: 02/11/18 15:24 Dose: 300 mls/hr Lactulose (Lactulose Liq) 30 ml PO BID [facility] Last Admin: 02/11/18 08:26 Dose: 30 ml Lorazepam (Ativan Inj) 0.25 mg IV.PUSH Q4H PRN PRN Reason: AGITATION OR ANXIETY Last Admin: 02/11/18 06:29 Dose: 0.25 mg Magnesium Oxide (Mag-Ox) 800 mg PO UNSCH PRN PRN Reason: For Magnesium 1.2 - 1.6 mg/dL Last Admin: 02/07/18 21:37 Dose: 800 mg Miscellaneous Medication () 1 each OROPHARYNG 0000,0400,1200,1600 [facility] Last Admin: 02/11/18 15:24 Dose: Not Given Potassium Bicarb/Potassium Chloride (K-Lyte Cl Eff) 50 meq PO UNSCH PRN PRN Reason: For Potassium 3.3 - 3.5 mEq/L Last Admin: 02/05/18 13:35 Dose: 50 meq Potassium Chloride (K-Dur) 20 meq PO BID [facility] Last Admin: 02/11/18 08:26 Dose: 20 meq Potassium Phosphate (K-Phos Original) 2,000 mg PO Q4H PRN PRN Reason: Phosphorus Less Than 2.5 mg/dL Last Admin: 02/06/18 22:27 Dose: 2,000 mg Potassium Phosphate (K-Phos Original) 2,000 mg PO UNSCH PRN PRN Reason: SEE LABEL COMMENTS Sodium Biphosphate/Sodium Phosphate (Fleets Enema (Adult)) 118 ml RECTAL UNSCH PRN PRN Reason: CONSTIPATION Sodium Chloride (Ns Flush) 2 ml IV.FLUSH BID CHANDA Last Admin: 02/11/18 08:26 Dose: 2 ml Sodium Chloride (Ns Flush) 2 ml IV.FLUSH PRN PRN PRN Reason: FLUSH AFTER USING IV ACCESS Allergies Allergy/AdvReac Type Severity Reaction Status Date / Time Sulfa (Sulfonamide Allergy Intermediate Verified 05/14/17 22:25 Antibiotics) Home Medications Medication Instructions Recorded Confirmed Type No Known Home Medications 01/28/18 01/28/18 History Physical Exam Vital signs: Vital Signs 02/10/18 17:00 02/10/18 18:00 02/10/18 18:20 Temperature Pulse Rate 108 H 100 H 94 H Respiratory Rate Blood Pressure 113/58 L 113/63 Pulse Oximetry 96 97 02/10/18 19:00 02/10/18 20:00 02/10/18 21:00 Temperature Pulse Rate 107 H 100 H 102 H Respiratory Rate 21 Blood Pressure 103/55 L 107/61 Pulse Oximetry 96 94 L 94 L 02/10/18 21:08 02/10/18 22:00 02/10/18 23:00 Temperature Pulse Rate 110 H 115 H 107 H Respiratory Rate Blood Pressure 96/53 L 97/55 L 89/53 L Pulse Oximetry 95 97 97 02/11/18 00:00 02/11/18 00:20 02/11/18 00:54 Temperature Pulse Rate 95 H 89 Respiratory Rate 20 20 20 Blood Pressure 92/50 L Pulse Oximetry 98 98 02/11/18 01:00 02/11/18 02:00 02/11/18 03:00 Temperature Pulse Rate 98 H 88 90 Respiratory Rate Blood Pressure 85/54 L 87/53 L 89/50 L Pulse Oximetry 97 98 98 02/11/18 04:00 02/11/18 05:00 02/11/18 06:00 Temperature Pulse Rate 91 H 100 H 90 Respiratory Rate 20 Blood Pressure 90/52 L 92/56 L 95/56 L Pulse Oximetry 97 96 99 02/11/18 07:00 02/11/18 08:00 02/11/18 08:09 Temperature 98.8 F Pulse Rate 93 H 81 88 Respiratory Rate 20 Blood Pressure 92/60 L 95/53 L Pulse Oximetry 99 92 L 92 L 02/11/18 09:00 02/11/18 10:00 02/11/18 10:07 Temperature Pulse Rate 117 H 111 H 122 H Respiratory Rate Blood Pressure 103/67 114/69 Pulse Oximetry 78 L 94 L 93 L 02/11/18 11:00 02/11/18 12:00 02/11/18 12:21 Temperature Pulse Rate 122 H 108 H 104 H Respiratory Rate 16 20 Blood Pressure Pulse Oximetry 92 L 92 L 02/11/18 13:00 02/11/18 13:23 02/11/18 13:29 Temperature Pulse Rate 110 H 97 H 95 H Respiratory Rate Blood Pressure 75/43 L 61/35 L Pulse Oximetry 95 94 L 96 02/11/18 13:31 02/11/18 13:34 02/11/18 13:40 Temperature Pulse Rate 99 H 97 H 87 Respiratory Rate Blood Pressure 57/31 L 74/37 L 78/40 L Pulse Oximetry 95 96 97 02/11/18 13:45 02/11/18 14:00 02/11/18 15:44 Temperature Pulse Rate 87 89 96 H Respiratory Rate 18 Blood Pressure 75/39 L Pulse Oximetry 96 Intake & Output 02/10/18 02/11/18 02/11/18 18:59 06:59 18:59 Intake Total 2180 / 2180 700 / 700 500 / 500 Output Total 1300 / 1300 600 / 600 Balance 880 / 880 100 / 100 500 / 500 Weight 61 kg Intake: IV 500 / 500 100 / 100 500 / 500 Zyvox 600 mg Premix 300 ML @ 300 / 300 300 / 300 300 mls/hr IV.SIG Q12H CHANDA Rx#: [id number] Zosyn 4.5 GM Premix 4.5 gm In 200 / 200 100 / 100 200 / 200 100 ml @ 200 mls/hr IV.SIG Q6H CHANDA Rx#:[id number] Oral 1680 / 1680 600 / 600 Output: Urine 1000 / 1000 Urine Amount (Catheter) 300 / 300 600 / 600 Straight 300 / 300 600 / 600 Other: # Voids 1 Date of Last Bowel Movement 02/03/18 02/03/18 02/03/18 # Bowel Movements 0 Narrative: right foot with palpable pedal pulses. distal hallux with bulla distal medial aspect and beneath nail. there is fluctuance beneath nail. No erythema, edema, or sign of infection present at this time. Results - Labs CBC & Chem 7: 02/09/18 09:10 02/10/18 07:05 Microbiology 02/07/18 13:13 Blood - Peripheral Aerobic Blood Culture - Preliminary No growth in 4 days 02/07/18 13:13 Blood - Peripheral Anaerobic Blood Culture - Preliminary No growth in 4 days 02/07/18 13:04 Blood - Peripheral Aerobic Blood Culture - Preliminary No growth in 4 days 02/07/18 13:04 Blood - Peripheral Anaerobic Blood Culture - Preliminary No growth in 4 days - Imaging Impressions Aorta w/Runoff CTA 02/10/18 00:00 CONCLUSION: 1. Negative CTA. 2. Bibasilar areas of consolidation or atelectasis being worse in the right. Chest X-Ray 02/11/18 06:47 CONCLUSION: Stable chest x-ray with bibasilar and right midlung zone airspace consolidation with suspected small right pleural effusion. Assessment and Plan - Assessment (1) Skin bulla Code(s): R23.8 - Other skin changes Status: Acute (2) Gangrene of toe Code(s): I96 - Gangrene, not elsewhere classified Status: Acute - Plan Will continue to monitor the stable area. The warmth and stable surrounding tissue lead me to think this may be a friction issue instead of gangrene, and nail will come off eventually to right great toe. If bulla ruptures, will order wound care and consider procedure to remove nail and devitalized tissue, but no treatment planned at this time. Recommend reducing pressure and friction to the area.
[2018-02-11] MEDS ORDERED: Albumin Human 25% Inj 100 ML IV.SIG ONE (19:00)
[2018-02-11] MEDS ORDERED: Magnesium Citrate Liq 300 ML Bottle PO ONE (19:00)
[2018-02-11] MEDS: Enoxaparin Inj 40 MG/0.4 ML Syringe SQ SCH (21:25)
[2018-02-11] MEDS ORDERED: Sod Chloride 0.9% Inj 1,000 ML IV.SIG SCH (22:30)
[2018-02-11] MEDS: Acetaminophen 325 MG Tablet PO PRN (22:37)
[2018-02-12] MEDS: Oral Hygiene Kit OROPHARYNG SCH ×3 (03:41→18:44)
[2018-02-12 08:07] LABS: Alanine Aminotransferase 64 U/L (10-53); Albumin 2.8 g/dL (3.4-5.0); Anion Gap 7 meq/L (5-15); Aspartate Aminotransferase 31 U/L (15-37); Blood Urea Nitrogen 16 mg/dL (7-18); Calcium 8.5 mg/dL (8.5-10.1); Carbon Dioxide 29.2 meq/L (21.0-32.0); Chloride 102 meq/L (98-107); Glomerular Filtration Rate Greater Than 89 mL/min (>89); Glucose,Random 102 mg/dL (74-106); Magnesium 1.9 mg/dL (1.5-2.5); Potassium 4.2 meq/L (3.5-5.1)
[2018-02-12 08:09] LABS: Alkaline Phosphatase 114 U/L (45-117); Total Protein 6.1 g/dL (6.4-8.2)
[2018-02-12 08:10] LABS: Sodium 138 meq/L (136-145)
[2018-02-12] MEDS: guaiFENesin 600 MG ER Tablet PO SCH ×2 (08:18→20:56)
[2018-02-12] MEDS: Famotidine 20 MG Tablet PO SCH ×2 (08:18→20:56)
[2018-02-12] MEDS: Sodium Chloride 0.9% 2 ML Flush BID IV.FLUSH SCH ×2 (08:18→20:57)
[2018-02-12] MEDS: Docusate Sodium Liq 100 MG/10 ML UDC PO SCH (08:18)
[2018-02-12] MEDS: Chlorhexidine 0.12% Oral Kit 15 ML UDC OROPHARYNG SCH ×2 (08:18→20:57)
--- NOTE | 2018-02-12 08:31 | P.PNCC ---
Subjective Subjective Remarks/Hospital Course: This is a 32-year-old female that presented to the emergency department last evening. Per report reviewed the patient had complaints myalgias, nausea, vomiting diarrhea in conjunction fever and chills per review of the records the patient went to an urgent care center on and was diagnosed with the flu and subsequently sent home the patient stated her symptoms worsen so she presented to [facility] ED on 2017. Upon presentation imaging and laboratory studies were performed that initially revealed a significant leukocytosis with a WBC count of 20.8, hypokalemia and a chest x-ray revealing extensive bilateral airspace disease. The patient was bolused with IV fluids, and received prophylactic antibiotics, blood cultures were obtained. The patient was admitted to ICU at [place] and ICU was consulted on 01/28/2018 at 2059 ,and was placed on BiPAP overnight with worsening symptomatology. Respiratory rate throughout the night was noted to be in the high 30s-50, with O2 saturation 87-91 % throughout the night. Upon my arrival this am, I examined the patient at 0615, and upon my evaluation this a.m. was noted to be extremely dyspneic, unable to speak secondary to extreme dyspnea, respiratory rate 48-50, and O2 sat 86-87%. A stat ABG was obtained PaO2 was noted to be 84, on 100%, and the patient kept stating she could not breathe. The patient was emergently intubated x1 attempt. Visually O2 saturation remained in the mid 80s-88 % on PEEP 12, FIO2 of 100%, with a slightly extended I- time. A stat ABG was performed PaO2 was noted to be 72, ventilator adjustments continued to optimize oxygenation. Emergent A-line was placed for frequent blood sampling, to evaluate oxygenation. The patient was noted to be in a sinus tach the patient was bolused with additional IV fluids 2 L and placed on sedation, to include, Versed , propofol, fentanyl infusions. The patient's past medical history is significant for hepatitis C, borderline personality disorder Funes acted 2017 secondary to chronic anxiety per records reviewed the patient takes Klonopin. 01/30: The patient's oxygenation moved by midday 01/29, and the patient was transferred via ambulance to [facility]. On her arrival the patient had a CVL placed, echo performed peer and the patient was placed on prone bed for prone positioning. Upon prone positioning, the patient's O2 saturation improved. FiO2 currently is at 60% when patient is in prone position with O2 sat of 100%. The patient remains deeply sedated with neuromuscular blockade Nemex for prone positioning. Urine output is equivalent to 1 cc/kg/h the patient was noted to have a metabolic acidosis this a.m., 50 mEq of sodium bicarbonate was given, IV fluids changed to one half normal saline at 100 cc/ hour. Noted lactic acidemia now resolved. One bottle blood culture showed gram -positive cocci. Discussed with patient's mother and permission granted to obtain HIV labs, deemed medically necessary per ID Dr. Carballo. 01/31: Decreasing FiO2 requirements at this time. Chest x-ray suggestive of interstitial edema, Lasix 40 mg x1 dose provided. IV fluids decreased to 42 cc/ hr . Secondary to prone positioning StatLock removed and central line sutured in place, to prevent possible dislodgment and prone position. Cultures revealed sputum MRSA, and blood gram-positive cocci. HIV testing labs negative. 02/01: Noted improvement clinically and respiratory status O2 requirements have been decreased 0.45% and a PEEP of 8. Patient noted to have a positive fluid balance was diuresed yesterday, chest x-ray shows persistent pulmonary edema Lasix dosing increased to twice daily IV fluids have now been discontinued. Noted thrombocytopenia, heparin platelet antibody has been ordered. Colitis currently being replaced. 02/02: fio2 continues to improve. supinated today and remains stable x 8 hrs. can likely transition off RotaProne bed today. continues to be very volume overloaded, although adequate start to diuresis yesterday. 02/03: The patient was removed from rota prone bread at 1800 yesterday. The patient continues to improve oxygenation. Versed continually being weaned down in anticipation for CPAP trials. Dietary consult has been initiated for tube feeds. 02/04: Afebrile. the patient remained on CPAP trials throughout yesterday afternoon, placed back on a rate last evening. CPAP trials have been reinitiated this a.m. SBT parameters currently being obtain ABG within normal limits plan for possible extubation today 02/05 Tolerated extubation yesterday and remains on 5 L nasal cannula. Has passed bedside swallow evaluation and is requesting to advance diet. Temp max 100.5. Sputum culture 02/03 pending. On cefepime, azithro and vanc per ID. Has been diuresed aggressively. Creatinine normal, alkalosis. Remove invasive lines and Garcia today. Out of bed 02/06 Alkalosis has given way to bicarb of 18.4 following diamox. She is on 6 L NC but is tachypneic, more dyspneic today. +thick sputum production and respiratory muscle weakness are contributing. Guafenesin/nebs/EZPAP. Bipap to support now. May require reintubation, but trying to avoid. Subjective: 02/07 On and off Bipap. She is very weak with critical illness polyneuropathy and I believe this is contributing to her ongoing respiratory issues. Appreciate staff assistance with aggressive pulmonary toilet. Bibasilar infiltrates have persisted. Antibiotics adjusted to zosyn/linezolid yesterday per ID. No fever. She does have uptrending leukocytosis. Will d/c steroids to effort to mitigate weakness. Family and patient aware she may require intubation (which could very well lead to trach due to her weakness). 02/08: Remains very weak from critical illness neuropathy and myopathy. She is requiring on and off BiPAP still. Very coarse rhonchi bilaterally. Chest x- ray shows some increase in upper lobe infiltrates. Pt/Ot. Plan bedside ultrasound to evaluate right effusion 02/09/18: Continues to be quite weak with rhonchorous breath. Bilateral scattered rhonchi and some inspiratory wheezing. Chest x-ray is stable to slightly worsening infiltrates. 02/10/18: Lying in bed appears slightly more comfortable right chest exam more clear. Left lung still has coarse rhonchi and some wheezing. Urine output more than 1.8 L in 24 hours. No bowel movements since per patient. Bowel regimen started 02/11/18: Improved exam today clinically also improved maintaining good oxygen saturation. Bilateral coarse rhonchi still present but improved. Chest x-ray stable to slight improvement in infiltrates 02/12/18: Overnight became hypotensive lowest blood pressure 82/52. Responded to 1 L fluid bolus. I am holding Coreg and lisinopril. Lasix dose reduced to 20 mg IV hold until blood pressure stable. Chest x-ray and labs today are pending. Clinically patient remained stable except for hypotension. Despite aggressive bowel regimen patient still did not have a bowel movement. KUB is pending at this time Objective Vital Signs / I&O: Vital Signs 02/11/18 09:00 02/11/18 10:00 02/11/18 10:07 Temperature Pulse Rate 117 H 111 H 122 H Respiratory Rate Blood Pressure 103/67 114/69 Pulse Oximetry 78 L 94 L 93 L 02/11/18 11:00 02/11/18 12:00 02/11/18 12:21 Temperature Pulse Rate 122 H 108 H 104 H Respiratory Rate 16 20 Blood Pressure Pulse Oximetry 92 L 92 L 02/11/18 13:00 02/11/18 13:23 02/11/18 13:29 Temperature Pulse Rate 110 H 97 H 95 H Respiratory Rate Blood Pressure 75/43 L 61/35 L Pulse Oximetry 95 94 L 96 02/11/18 13:31 02/11/18 13:34 02/11/18 13:40 Temperature Pulse Rate 99 H 97 H 87 Respiratory Rate Blood Pressure 57/31 L 74/37 L 78/40 L Pulse Oximetry 95 96 97 02/11/18 13:45 02/11/18 14:00 02/11/18 14:10 Temperature Pulse Rate 87 91 H 94 H Respiratory Rate Blood Pressure 75/39 L 74/40 L 77/40 L Pulse Oximetry 96 96 97 02/11/18 14:15 02/11/18 15:00 02/11/18 15:44 Temperature Pulse Rate 89 80 96 H Respiratory Rate 18 Blood Pressure 79/42 L 84/47 L Pulse Oximetry 98 95 02/11/18 16:00 02/11/18 16:15 02/11/18 17:00 Temperature 98.7 F Pulse Rate 109 H 101 H 89 Respiratory Rate Blood Pressure 80/48 L 80/45 L 77/40 L Pulse Oximetry 97 99 98 02/11/18 17:09 02/11/18 18:00 02/11/18 19:00 Temperature Pulse Rate 95 H 86 81 Respiratory Rate Blood Pressure 85/45 L 85/53 L 78/42 L Pulse Oximetry 98 97 97 02/11/18 20:00 02/11/18 20:14 02/11/18 20:58 Temperature Pulse Rate 77 81 79 Respiratory Rate 18 Blood Pressure 76/40 L 77/37 L Pulse Oximetry 99 99 98 02/11/18 21:00 02/11/18 21:12 02/11/18 21:30 Temperature Pulse Rate 79 83 82 Respiratory Rate Blood Pressure 83/46 L 77/39 L Pulse Oximetry 98 96 97 02/11/18 22:00 02/11/18 22:30 02/11/18 23:00 Temperature Pulse Rate 82 80 82 Respiratory Rate Blood Pressure 79/40 L 84/47 L 86/47 L Pulse Oximetry 97 96 97 02/11/18 23:30 02/11/18 23:53 02/12/18 00:00 Temperature Pulse Rate 79 86 72 Respiratory Rate 18 16 Blood Pressure 88/53 L 93/50 L Pulse Oximetry 98 99 02/12/18 00:30 02/12/18 01:00 02/12/18 01:30 Temperature Pulse Rate 81 84 81 Respiratory Rate Blood Pressure 92/50 L 90/51 L 83/45 L Pulse Oximetry 97 96 96 02/12/18 02:00 02/12/18 02:30 02/12/18 03:00 Temperature Pulse Rate 89 76 90 Respiratory Rate Blood Pressure 82/52 L 87/48 L 88/51 L Pulse Oximetry 97 97 98 02/12/18 03:30 02/12/18 04:00 02/12/18 04:27 Temperature Pulse Rate 90 72 68 Respiratory Rate 18 18 Blood Pressure 89/50 L 93/55 L Pulse Oximetry 97 98 02/12/18 04:30 02/12/18 05:00 02/12/18 05:30 Temperature Pulse Rate 76 82 79 Respiratory Rate Blood Pressure 96/51 L 103/50 L 99/58 L Pulse Oximetry 98 96 97 02/12/18 06:00 02/12/18 07:36 Temperature Pulse Rate 87 68 Respiratory Rate 16 Blood Pressure 100/55 L Pulse Oximetry Intake & Output 02/11/18 02/12/18 02/12/18 18:59 06:59 18:59 Intake Total 500 / 500 2000 / 2000 Output Total 1200 / 1200 Balance 500 / 500 800 / 800 Weight 58.5 kg Intake: IV 500 / 500 1700 / 1700 Flexbumin 25% Inj 100 ML @ 60 100 / 100 mls/hr IV.SIG ONCE ONE Rx#: [id number] Zyvox 600 mg Premix 300 ML @ 300 / 300 600 / 600 300 mls/hr IV.SIG Q12H BENOIT Rx#: [id number] Zosyn 4.5 GM Premix 4.5 gm In 200 / 200 100 ml @ 200 mls/hr IV.SIG Q6H BENOIT Rx#:[id number] NS Inj 1,000 ML @ 500 mls/hr IV 1000 / 1000 .SIG .Q2H BENOIT Rx#:[id number] Oral 300 / 300 Output: Urine Amount (Catheter) 1200 / 1200 Straight 1200 / 1200 Other: # Voids 4 Date of Last Bowel Movement 02/03/18 02/03/18 Result Diagrams: 02/09/18 09:10 02/12/18 07:26 Objective Remarks: GENERAL: Young female, lying in bed, alert and conversant. Breathing comfortably SKIN: Warm and dry. HEAD: Atraumatic. Normocephalic. EYES: Pupils equal and round. No scleral icterus. No injection or drainage. ENT: Currently on facemask NECK: Trachea midline. No JVD. CARDIOVASCULAR: Regular rhythm. sinus on the monitor. RESPIRATORY: No accessory muscle use. Few rales in right base. Scattered Bilateral rhonchi predominantly left chest. GASTROINTESTINAL: Abdomen soft, non-tender, nondistended. Bowel sounds hypoactive. MUSCULOSKELETAL: Extremities without clubbing, cyanosis, trace edema. No obvious deformities. Bruising noted on right forehead left great toe 2/2 rota prone bed positioning. Also skin breakdown medial lower legs bilaterally. Right big toe has an area of gangrene medially NEUROLOGICAL: Awake, oriented to person, place, circumstance. She does move all extremities to command. Hip flexor 3/5, hamstring 2/5, wiggles toes. weak floor covering installer strength bilaterally, deltoids 3/5, biceps 2/5. Procedures: 01/31: Sutured right IJ, StatLock removed. Assessment and Plan - Problem List (1) Acute respiratory failure with hypoxia and hypercarbia Code(s): J96.01 - Acute respiratory failure with hypoxia; J96.02 - Acute respiratory failure with hypercapnia Status: Resolved (2) Hepatitis Code(s): K75.9 - Inflammatory liver disease, unspecified Status: Acute (3) Bilateral pneumonia Code(s): J18.9 - Pneumonia, unspecified organism Status: Acute (4) Sepsis Code(s): A41.9 - Sepsis, unspecified organism Status: Acute (5) Hypoxia Code(s): R09.02 - Hypoxemia Status: Acute (6) Leukocytosis Code(s): D72.829 - Elevated white blood cell count, unspecified Status: Acute (7) Hyperglycemia Code(s): R73.9 - Hyperglycemia, unspecified Status: Acute (8) Thrombocytopenia Code(s): D69.6 - Thrombocytopenia, unspecified Status: Acute (9) Polyneuropathy associated with critical illness Code(s): G62.81 - Critical illness polyneuropathy Status: Acute - Assessment and Plan Plan: Plan by systems: Neurologic: Anxiety disorder Borderline personality disorder Substance use disordercocaine abuse Lortab and Tylenol as needed for pain 01/28 urine drug screen-positive for cocaine Critical illness polyneuropathy OT Daily PT. Out of bed to chair. Respiratory: Acute hypoxemic and hypercarbic respiratory failure-improving Bilateral pneumonia-improving ARDS-resolved bilateral pulmonary edema-improving Tobacco use disorder DuoNeb q4/EZPAP. Guaifenesin 600 bid. suction prn. Acapella Resp muscle weakness contributing, supporting resp effort with BIPAP as needed D/cd solumedrol. Pulmonology following. Legionella, pneumococcal urine antigens-neg. Influenza antigens A/Bneg. 01/29-intubated 7.5 ETT 22 at the [facility], Extubated 02/04 Dr. Syed following. On Lasix 20 [id number] to 20 milligrams daily Cardiovascular: Right big toe gangrene Maintain MAP > 65mmHg 01/28 Echo EF 40-45%, moderately dilated left ventricle, LAD infarct vs. Taktsubo cardiomyopathy, no vegetations noted PAP 42 Repeat bedside echo 02/10/2018 appears to show improved LVEF, prior to discharge will need full echo/stress echo Coreg 12.5 bid., Losartan placed on hold due to hypotension. Status post 1 L normal saline bolus ASA [address] Mendoza evaluated, plan for stress when stabilized and out of ICU. Appreciate vascular surgery consult by Dr. Todd, CTA with runoff essentially negative Podiatry consulted and following Renal/FEN: Removed Garcia 02/05. KCL 20 mEq po bid while on Lasix. Monitoring creatinine. GI: Hepatitis C Transaminitis Metabolic alkalosis resolved. Hypernatremia Hypokalemia Regular diet. Ensure tid. Monitor CMP Electrolyte replacement per ICU protocol Patient is severely constipated despite aggressive bowel regimen Check KUB today, last bowel movement was 02/03/2018, if no response to Mona- Colace lactulose and mag citrate will need CT to rule out obstruction Heme/ID: MRSA Pneumonia Severe sepsis Leukocytosis-resolved ARDS Hepatitis C AB positive - RNA viral load pending. Thrombocytopenia 01/28-Legionella, mycoplasma, pneumococcal antigens-negative 01/28 sputum culture-negative Viral respiratory PCR negative. ID consulted-Dr. Carballo following. On linezolid per ID. Teresasyn DCd 02/11/1801/28 Blood MRSA. Subsequent Blood culture 02/02 NGTD. HIV- negative, CD4 185. F/U HCV PCR 02/02 Heparin platelet antibody-negative Endocrine: Hyperglycemia of critical illness No longer requiring insulin. Prophylaxis: GI Prophylaxis famotidine DVT Prophylaxis -- SCDs Lines: PIV. D/c R IJ CVL (01/29-02/05 , Right rad arterial line d/c'd 02.05. Arterial line left radial (dc'd 02/01), Mother and grandmother updated 02/[address] Moreno and multiple questions answered. Mother and grand mother updated 02/10/18 Level 3 follow-up Continue ICU care due to hypotension last night. May need CT of the abdomen pelvis to rule out obstruction (3) Bilateral pneumonia Qualifiers: Pneumonia type: due to unspecified organism Lung location: unspecified part of lung Qualified Code(s): J18.9 - Pneumonia, unspecified organism (4) Sepsis Qualifiers: Sepsis type: sepsis due to unspecified organism Qualified Code(s): A41.9 - Sepsis, unspecified organism (6) Leukocytosis Qualifiers: Leukocytosis type: unspecified Qualified Code(s): D72.829 - Elevated white blood cell count, unspecified
--- NOTE | 2018-02-12 09:24 | XR ---
EXAM DATE: 02/12/2018 9:18 AM EST AGE/SEX: 32 years / Female INDICATIONS: Abdominal distention. CLINICAL DATA: This is the patient's subsequent encounter. Patient reports that signs and symptoms h ave been present for 1 day and indicates a pain score of 0/10. MEDICAL/SURGICAL HISTORY: None. None. COMPARISON: [facility] – [place], ABDOMEN SINGLE [place], 02/03/2018. . FINDINGS: Scattered stool is seen throughout the colon. There is no free air or obstruction. Scattered gas-filled nondilated loops of large and small bowel are noted CONCLUSION: Scattered stool with minimal scattered loops of large and small bowel nonspecific fashion. This has m ore the appearance of constipation. Electronically signed by: Lopez Nava MD Board Certified Radiologist 02/12/2018 9:23 AM EST
--- NOTE | 2018-02-12 09:25 | XR ---
EXAM DATE: 02/12/2018 9:20 AM EST AGE/SEX: 32 years / Female INDICATIONS: Shortness of breath. CLINICAL DATA: This is the patient's subsequent encounter. Patient reports that signs and symptoms h ave been present for 4 - 6 days and indicates a pain score of 0/10. MEDICAL/SURGICAL HISTORY: None. None. COMPARISON: [facility] [place] 1[place] S[place], 02/11/2018. . FINDINGS: Minimal airspace disease is seen laterally in the right upper lobe and right base, slowly improving. Left lung is clear. The heart and pulmonary vascularity are normal. The portion of the bony skeleton visualized is unremarkable. CONCLUSION: Minimal improvement, persistent airspace disease remains on the right. Electronically signed by: Lopez Nava MD Board Certified Radiologist 02/12/2018 9:23 AM EST
--- NOTE | 2018-02-12 09:43 | P.PNPL ---
Subjective Interval history: Patient is lying in bed in NAD. On room air oxygen. Afebrile. Physical Exam Vital signs: Vital Signs 02/11/18 10:00 02/11/18 10:07 02/11/18 11:00 Temperature Pulse Rate 111 H 122 H 122 H Respiratory Rate Blood Pressure 114/69 Pulse Oximetry 94 L 93 L 92 L 02/11/18 12:00 02/11/18 12:21 02/11/18 13:00 Temperature Pulse Rate 108 H 104 H 110 H Respiratory Rate 16 20 Blood Pressure Pulse Oximetry 92 L 95 02/11/18 13:23 02/11/18 13:29 02/11/18 13:31 Temperature Pulse Rate 97 H 95 H 99 H Respiratory Rate Blood Pressure 75/43 L 61/35 L 57/31 L Pulse Oximetry 94 L 96 95 02/11/18 13:34 02/11/18 13:40 02/11/18 13:45 Temperature Pulse Rate 97 H 87 87 Respiratory Rate Blood Pressure 74/37 L 78/40 L 75/39 L Pulse Oximetry 96 97 96 02/11/18 14:00 02/11/18 14:10 02/11/18 14:15 Temperature Pulse Rate 91 H 94 H 89 Respiratory Rate Blood Pressure 74/40 L 77/40 L 79/42 L Pulse Oximetry 96 97 98 02/11/18 15:00 02/11/18 15:44 02/11/18 16:00 Temperature 98.7 F Pulse Rate 80 96 H 109 H Respiratory Rate 18 Blood Pressure 84/47 L 80/48 L Pulse Oximetry 95 97 02/11/18 16:15 02/11/18 17:00 02/11/18 17:09 Temperature Pulse Rate 101 H 89 95 H Respiratory Rate Blood Pressure 80/45 L 77/40 L 85/45 L Pulse Oximetry 99 98 98 02/11/18 18:00 02/11/18 19:00 02/11/18 20:00 Temperature Pulse Rate 86 81 77 Respiratory Rate Blood Pressure 85/53 L 78/42 L 76/40 L Pulse Oximetry 97 97 99 02/11/18 20:14 02/11/18 20:58 02/11/18 21:00 Temperature Pulse Rate 81 79 79 Respiratory Rate 18 Blood Pressure 77/37 L Pulse Oximetry 99 98 98 02/11/18 21:12 02/11/18 21:30 02/11/18 22:00 Temperature Pulse Rate 83 82 82 Respiratory Rate Blood Pressure 83/46 L 77/39 L 79/40 L Pulse Oximetry 96 97 97 02/11/18 22:30 02/11/18 23:00 02/11/18 23:30 Temperature Pulse Rate 80 82 79 Respiratory Rate Blood Pressure 84/47 L 86/47 L 88/53 L Pulse Oximetry 96 97 98 02/11/18 23:53 02/12/18 00:00 02/12/18 00:30 Temperature Pulse Rate 86 72 81 Respiratory Rate 18 16 Blood Pressure 93/50 L 92/50 L Pulse Oximetry 99 97 02/12/18 01:00 02/12/18 01:30 02/12/18 02:00 Temperature Pulse Rate 84 81 89 Respiratory Rate Blood Pressure 90/51 L 83/45 L 82/52 L Pulse Oximetry 96 96 97 02/12/18 02:30 02/12/18 03:00 02/12/18 03:30 Temperature Pulse Rate 76 90 90 Respiratory Rate Blood Pressure 87/48 L 88/51 L 89/50 L Pulse Oximetry 97 98 97 02/12/18 04:00 02/12/18 04:27 02/12/18 04:30 Temperature Pulse Rate 72 68 76 Respiratory Rate 18 18 Blood Pressure 93/55 L 96/51 L Pulse Oximetry 98 98 02/12/18 05:00 02/12/18 05:30 02/12/18 06:00 Temperature Pulse Rate 82 79 87 Respiratory Rate Blood Pressure 103/50 L 99/58 L 100/55 L Pulse Oximetry 96 97 02/12/18 07:36 Temperature Pulse Rate 68 Respiratory Rate 16 Blood Pressure Pulse Oximetry Intake & Output 02/11/18 02/12/18 02/12/18 18:59 06:59 18:59 Intake Total 500 / 500 2000 / 2000 Output Total 1200 / 1200 Balance 500 / 500 800 / 800 Weight 58.5 kg Intake: IV 500 / 500 1700 / 1700 Flexbumin 25% Inj 100 ML @ 60 100 / 100 mls/hr IV.SIG ONCE ONE Rx#: [id number] Zyvox 600 mg Premix 300 ML @ 300 / 300 600 / 600 300 mls/hr IV.SIG Q12H [facility] Rx#: [id number] Zosyn 4.5 GM Premix 4.5 gm In 200 / 200 100 ml @ 200 mls/hr IV.SIG Q6H [facility] Rx#:[id number] NS Inj 1,000 ML @ 500 mls/hr IV 1000 / 1000 .SIG .Q2H [facility] Rx#:[id number] Oral 300 / 300 Output: Urine Amount (Catheter) 1200 / 1200 Straight 1200 / 1200 Other: # Voids 4 Date of Last Bowel Movement 02/03/18 02/03/18 - Constitutional no acute distress - Routine HEENT Exam Head: Present: normocephalic, atraumatic Eye: Present: EOMI, PERRL, normal accommodation, conjunctivae pink ENT: Present: mucous membranes moist - Routine Neck Exam Present: supple, full ROM, trachea midline - Routine Respiratory Exam Present: CTA bilaterally - Routine Cardiovascular Exam Present: RRR, S1, S2 - Routine Abdominal Exam Present: soft, normoactive bowel sounds - Routine Extremities Exam Present: full ROM, pulses intact - Routine Skin Exam Present: intact, dry - Routine Neurological Exam Present: alert, oriented X3, CN II-XII intact - Urinary Catheter Management Indwelling Urethral Catheter Cath placed during this visit: yes Reason for continuing: Other continuation reason Insertion date: 01/29/18 Insertion time: 07:15 Straight Cath placed during this visit: yes, but has since been removed by the nurse Reason for continuing: Not indwelling catheter Insertion date: 02/12/18 Insertion time: 06:15 Removal date: 02/12/18 Removal time: 06:20 Assessment and Plan - Assessment (1) Acute respiratory failure with hypoxia and hypercarbia Code(s): J96.01 - Acute respiratory failure with hypoxia; J96.02 - Acute respiratory failure with hypercapnia Status: Resolved (2) Hepatitis Code(s): K75.9 - Inflammatory liver disease, unspecified Status: Acute (3) Bilateral pneumonia Code(s): J18.9 - Pneumonia, unspecified organism Status: Acute Qualifiers: Pneumonia type: due to unspecified organism Lung location: unspecified part of lung Qualified Code(s): J18.9 - Pneumonia, unspecified organism (4) Sepsis Code(s): A41.9 - Sepsis, unspecified organism Status: Acute Qualifiers: Sepsis type: sepsis due to unspecified organism Qualified Code(s): A41.9 - Sepsis, unspecified organism (5) Hypoxia Code(s): R09.02 - Hypoxemia Status: Acute (6) Leukocytosis Code(s): D72.829 - Elevated white blood cell count, unspecified Status: Acute Qualifiers: Leukocytosis type: unspecified Qualified Code(s): D72.829 - Elevated white blood cell count, unspecified (7) Hyperglycemia Code(s): R73.9 - Hyperglycemia, unspecified Status: Acute (8) Thrombocytopenia Code(s): D69.6 - Thrombocytopenia, unspecified Status: Acute (9) Polyneuropathy associated with critical illness Code(s): G62.81 - Critical illness polyneuropathy Status: Acute - Plan 1. Resp Insuff s/p Extubation 02/04 2. s/p ARDS 3. MRSA pneumonia. 4. Staphylococcus aureus bacteremia. 5. Hepatitis C. 6. Anemia. 7. Thrombocytopenia. 8. Leukocytosis Plan Oxygen PRN maintain sats >92%. Bronchodilators, IS BIPAP PRN CXR today airspace disease remains on the right Abx per ID -On Zyvox. Monitor for signs of infections ( fever, WBC). ID is following. 01/28 BC: Staph Aureus. Sputum cx: MRSA 01/29 & 02/03, 02/07. Influenza screening negative on 01/28, Strep pneumonia and Legionella urinary Ag negative on 01/29 BC from 02/02: NGTD On Lasix 20mg Daily. Electrolytes replacement per protocol. Vascular surg is following for Right big toe gangrene medially- CTA runoff: Negative CTA. Bibasilar areas of consolidation or atelectasis being worse in the right. GI/DVT prophylaxis. on Pepcid 20 mg q.12 and Lovenox 40 mg subcutaneous daily.
[2018-02-12] MEDS: Senna/Docusate Sodium 8.6/50 MG Tablet PO SCH ×2 (09:51→20:57)
--- NOTE | 2018-02-12 17:57 | P.PNID ---
Subjective Remarks: Patient states that she feels okay. She is on room air. Awake and alert. Afebrile. No difficulty breathing. 32-year-old white female who presented to the emergency department yesterday evening with respiratory symptoms. Emergency department report stated that the patient developed symptoms about a week ago consisting of body aches, nausea, vomiting, diarrhea, fever, chills, and sweats. She was seen at an urgent care center about a week ago and was diagnosed with flu. She subsequently developed a sore throat and pain on swallowing and loss of the voice as well as nonproductive cough. Her energy level is also reported to be very low. The patient was seen in the emergency department and temperature was 98.6, heart rate was elevated at 122, and white count was elevated at 20.8. She was put on nonrebreather mask and oxygen saturation was noted to be between 88% and 92%. The patient was subsequently intubated. Antibiotics: zyvox Past Medical History: PAST MEDICAL HISTORY: Reportedly negative. The patient has been evaluated for psychiatric adjustment disorder. Allergies/Adverse Reactions: Allergies Sulfa (Sulfonamide Antibiotics) Allergy (Intermediate, Verified 05/14/17 22:25) PT STATES INCREASES HER TEMP Objective Vital Signs 02/11/18 18:00 02/11/18 19:00 02/11/18 20:00 Temperature Pulse Rate 86 81 77 Respiratory Rate Blood Pressure 85/53 L 78/42 L 76/40 L Pulse Oximetry 97 97 99 02/11/18 20:14 02/11/18 20:58 02/11/18 21:00 Temperature Pulse Rate 81 79 79 Respiratory Rate 18 Blood Pressure 77/37 L Pulse Oximetry 99 98 98 02/11/18 21:12 02/11/18 21:30 02/11/18 22:00 Temperature Pulse Rate 83 82 82 Respiratory Rate Blood Pressure 83/46 L 77/39 L 79/40 L Pulse Oximetry 96 97 97 02/11/18 22:30 02/11/18 23:00 02/11/18 23:30 Temperature Pulse Rate 80 82 79 Respiratory Rate Blood Pressure 84/47 L 86/47 L 88/53 L Pulse Oximetry 96 97 98 02/11/18 23:53 02/12/18 00:00 02/12/18 00:30 Temperature Pulse Rate 86 72 81 Respiratory Rate 18 16 Blood Pressure 93/50 L 92/50 L Pulse Oximetry 99 97 02/12/18 01:00 02/12/18 01:30 02/12/18 02:00 Temperature Pulse Rate 84 81 89 Respiratory Rate Blood Pressure 90/51 L 83/45 L 82/52 L Pulse Oximetry 96 96 97 02/12/18 02:30 02/12/18 03:00 02/12/18 03:30 Temperature Pulse Rate 76 90 90 Respiratory Rate Blood Pressure 87/48 L 88/51 L 89/50 L Pulse Oximetry 97 98 97 02/12/18 04:00 02/12/18 04:27 02/12/18 04:30 Temperature Pulse Rate 72 68 76 Respiratory Rate 18 18 Blood Pressure 93/55 L 96/51 L Pulse Oximetry 98 98 02/12/18 05:00 02/12/18 05:30 02/12/18 06:00 Temperature Pulse Rate 82 79 87 Respiratory Rate Blood Pressure 103/50 L 99/58 L 100/55 L Pulse Oximetry 96 97 02/12/18 07:00 02/12/18 07:36 02/12/18 08:00 Temperature 98.7 F Pulse Rate 76 68 85 Respiratory Rate 16 Blood Pressure 111/55 L 111/55 L Pulse Oximetry 98 99 02/12/18 09:00 02/12/18 10:00 02/12/18 10:20 Temperature Pulse Rate 82 110 H 101 H Respiratory Rate Blood Pressure 107/59 L 117/72 Pulse Oximetry 100 02/12/18 11:24 02/12/18 12:00 02/12/18 14:00 Temperature Pulse Rate 80 97 H 93 H Respiratory Rate 20 Blood Pressure Pulse Oximetry 02/12/18 15:28 02/12/18 16:00 Temperature Pulse Rate 92 H 95 H Respiratory Rate 20 Blood Pressure Pulse Oximetry Intake & Output 02/11/18 02/12/18 02/12/18 18:59 06:59 18:59 Intake Total 500 / 500 2000 / 2000 Output Total 1200 / 1200 Balance 500 / 500 800 / 800 Weight 58.5 kg Intake: IV 500 / 500 1700 / 1700 Flexbumin 25% Inj 100 ML @ 60 100 / 100 mls/hr IV.SIG ONCE ONE Rx#: [id number] Zyvox 600 mg Premix 300 ML @ 300 / 300 600 / 600 300 mls/hr IV.SIG Q12H [facility] Rx#: [id number] Zosyn 4.5 GM Premix 4.5 gm In 200 / 200 100 ml @ 200 mls/hr IV.SIG Q6H [facility] Rx#:[id number] NS Inj 1,000 ML @ 500 mls/hr IV 1000 / 1000 .SIG .Q2H [facility] Rx#:[id number] Oral 300 / 300 Output: Urine Amount (Catheter) 1200 / 1200 Straight 1200 / 1200 Other: # Voids 4 Date of Last Bowel Movement 02/03/18 02/03/18 02/12/18 02/07/18 13:13 Blood - Peripheral Aerobic Blood Culture - Final No growth in 5 days 02/07/18 13:13 Blood - Peripheral Anaerobic Blood Culture - Final No growth in 5 days 02/07/18 13:04 Blood - Peripheral Aerobic Blood Culture - Final No growth in 5 days 02/07/18 13:04 Blood - Peripheral Anaerobic Blood Culture - Final No growth in 5 days 02/07/18 10:00 Sputum - Expectorated Sputum Gram Stain - Final 02/07/18 10:00 Sputum - Expectorated Sputum Sputum Culture - Final S. aureus MRSA Lab - Chemistry Results 02/12/18 07:26 Sodium 138 Potassium 4.2 Chloride 102 Carbon Dioxide 29.2 Anion Gap 7 BUN 16 Creatinine 0.61 Estimated GFR Greater than 89 Random Glucose 102 Calcium 8.5 Magnesium 1.9 Total Bilirubin 0.6 AST 31 ALT 64 H Alkaline Phosphatase 114 Total Protein 6.1 L Albumin 2.8 L Imaging: ITS Impressions Chest CT 01/28/18 18:20 CONCLUSION: Extensive bilateral airspace disease Venous Doppler Study 02/07/18 13:15 CONCLUSION: The study is negative for bilateral lower extremity deep venous thrombosis. Aorta w/Runoff CTA 02/10/18 00:00 CONCLUSION: 1. Negative CTA. 2. Bibasilar areas of consolidation or atelectasis being worse in the right. Chest X-Ray 02/12/18 00:00 CONCLUSION: Minimal improvement, persistent airspace disease remains on the right. Abdomen X-Ray 02/12/18 08:51 CONCLUSION: Scattered stool with minimal scattered loops of large and small bowel nonspecific fashion. This has more the appearance of constipation. Physical Exam: GENERAL: Awake and alert. No acute distress. HEENT: Extraocular movements grossly intact. Pupils reactive to light. No icterus. NECK: No adenopathy or swelling. LUNGS: Slight rhonchi at the bases. Breath sounds are otherwise clear. HEART: Normal S1 and S2, without audible murmurs, rubs, or gallops. ABDOMEN: Decreased bowel sounds. Soft, nontender. No palpable mass. EXTREMITIES: No clubbing. No cyanosis, trace edema.. SKIN: No rash. warm and moist. NEUROLOGIC: Nonfocal PSYCHIATRIC: Calm. Lines without evidence of infection. Assessment and Plan - Plan IMPRESSION: 1. Bilateral pneumonia. MRSA. 2. Bacteremia. Staph aureus. MSSA. 3. Hypoxia. 4. Acute respiratory failure. Extubated Respiratory status improved after she required high FiO2 yesterday. 5. Elevated liver function tests. Improved. 6. Leukocytosis. WBC still elevated. 7. ALLERGY TO SULFA. Appears stable. RECOMMENDATIONS: 1. Continue linezolid 2. Monitor clinical status Monitor platelet count while on the linezolid. maureen ROMERO
[2018-02-13] MEDS: Oral Hygiene Kit OROPHARYNG SCH ×4 (00:31→16:28)
[2018-02-13] MEDS: Enoxaparin Inj 40 MG/0.4 ML Syringe SQ SCH (00:31)
[2018-02-13 05:09] LABS: Alanine Aminotransferase 60 U/L (10-53); Albumin 2.7 g/dL (3.4-5.0); Anion Gap 8 meq/L (5-15); Aspartate Aminotransferase 30 U/L (15-37); Blood Urea Nitrogen 12 mg/dL (7-18); Calcium 8.9 mg/dL (8.5-10.1); Carbon Dioxide 24.1 meq/L (21.0-32.0); Chloride 104 meq/L (98-107); Glomerular Filtration Rate Greater Than 89 mL/min (>89); Glucose,Random 141 mg/dL (74-106); Magnesium 1.8 mg/dL (1.5-2.5); Potassium 4.1 meq/L (3.5-5.1); Sodium 136 meq/L (136-145)
[2018-02-13 05:11] LABS: Alkaline Phosphatase 123 U/L (45-117)
[2018-02-13] MEDS: Chlorhexidine 0.12% Oral Kit 15 ML UDC OROPHARYNG SCH ×2 (08:32→19:52)
[2018-02-13] MEDS: Famotidine 20 MG Tablet PO SCH ×2 (09:05→20:49)
[2018-02-13] MEDS: guaiFENesin 600 MG ER Tablet PO SCH ×2 (09:05→20:50)
[2018-02-13] MEDS: Senna/Docusate Sodium 8.6/50 MG Tablet PO SCH ×2 (09:05→20:49)
[2018-02-13] MEDS: Sodium Chloride 0.9% 2 ML Flush BID IV.FLUSH SCH ×2 (09:05→23:20)
[2018-02-13] MEDS: Acetaminophen 325 MG Tablet PO PRN (09:07)
--- NOTE | 2018-02-13 12:44 | P.PNCC ---
Subjective Subjective Remarks/Hospital Course: This is a 32-year-old female that presented to the emergency department last evening. Per report reviewed the patient had complaints myalgias, nausea, vomiting diarrhea in conjunction fever and chills per review of the records the patient went to an urgent care center on and was diagnosed with the flu and subsequently sent home the patient stated her symptoms worsen so she presented to [facility] ED on 2017. Upon presentation imaging and laboratory studies were performed that initially revealed a significant leukocytosis with a WBC count of 20.8, hypokalemia and a chest x-ray revealing extensive bilateral airspace disease. The patient was bolused with IV fluids, and received prophylactic antibiotics, blood cultures were obtained. The patient was admitted to ICU at [place] and ICU was consulted on 01/28/2018 at 2059 ,and was placed on BiPAP overnight with worsening symptomatology. Respiratory rate throughout the night was noted to be in the high 30s-50, with O2 saturation 87-91 % throughout the night. Upon my arrival this am, I examined the patient at 0615, and upon my evaluation this a.m. was noted to be extremely dyspneic, unable to speak secondary to extreme dyspnea, respiratory rate 48-50, and O2 sat 86-87%. A stat ABG was obtained PaO2 was noted to be 84, on 100%, and the patient kept stating she could not breathe. The patient was emergently intubated x1 attempt. Visually O2 saturation remained in the mid 80s-88 % on PEEP 12, FIO2 of 100%, with a slightly extended I- time. A stat ABG was performed PaO2 was noted to be 72, ventilator adjustments continued to optimize oxygenation. Emergent A-line was placed for frequent blood sampling, to evaluate oxygenation. The patient was noted to be in a sinus tach the patient was bolused with additional IV fluids 2 L and placed on sedation, to include, Versed , propofol, fentanyl infusions. The patient's past medical history is significant for hepatitis C, borderline personality disorder Funes acted 2017 secondary to chronic anxiety per records reviewed the patient takes Klonopin. 01/30: The patient's oxygenation moved by midday 01/29, and the patient was transferred via ambulance to [facility]. On her arrival the patient had a CVL placed, echo performed peer and the patient was placed on prone bed for prone positioning. Upon prone positioning, the patient's O2 saturation improved. FiO2 currently is at 60% when patient is in prone position with O2 sat of 100%. The patient remains deeply sedated with neuromuscular blockade Nemex for prone positioning. Urine output is equivalent to 1 cc/kg/h the patient was noted to have a metabolic acidosis this a.m., 50 mEq of sodium bicarbonate was given, IV fluids changed to one half normal saline at 100 cc/ hour. Noted lactic acidemia now resolved. One bottle blood culture showed gram -positive cocci. Discussed with patient's mother and permission granted to obtain HIV labs, deemed medically necessary per ID Dr. Carballo. 01/31: Decreasing FiO2 requirements at this time. Chest x-ray suggestive of interstitial edema, Lasix 40 mg x1 dose provided. IV fluids decreased to 42 cc/ hr . Secondary to prone positioning StatLock removed and central line sutured in place, to prevent possible dislodgment and prone position. Cultures revealed sputum MRSA, and blood gram-positive cocci. HIV testing labs negative. 02/01: Noted improvement clinically and respiratory status O2 requirements have been decreased 0.45% and a PEEP of 8. Patient noted to have a positive fluid balance was diuresed yesterday, chest x-ray shows persistent pulmonary edema Lasix dosing increased to twice daily IV fluids have now been discontinued. Noted thrombocytopenia, heparin platelet antibody has been ordered. Colitis currently being replaced. 02/02: fio2 continues to improve. supinated today and remains stable x 8 hrs. can likely transition off RotaProne bed today. continues to be very volume overloaded, although adequate start to diuresis yesterday. 02/03: The patient was removed from rota prone bread at 1800 yesterday. The patient continues to improve oxygenation. Versed continually being weaned down in anticipation for CPAP trials. Dietary consult has been initiated for tube feeds. 02/04: Afebrile. the patient remained on CPAP trials throughout yesterday afternoon, placed back on a rate last evening. CPAP trials have been reinitiated this a.m. SBT parameters currently being obtain ABG within normal limits plan for possible extubation today 02/05 Tolerated extubation yesterday and remains on 5 L nasal cannula. Has passed bedside swallow evaluation and is requesting to advance diet. Temp max 100.5. Sputum culture 02/03 pending. On cefepime, azithro and vanc per ID. Has been diuresed aggressively. Creatinine normal, alkalosis. Remove invasive lines and Garcia today. Out of bed 02/06 Alkalosis has given way to bicarb of 18.4 following diamox. She is on 6 L NC but is tachypneic, more dyspneic today. +thick sputum production and respiratory muscle weakness are contributing. Guafenesin/nebs/EZPAP. Bipap to support now. May require reintubation, but trying to avoid. Subjective: 02/07 On and off Bipap. She is very weak with critical illness polyneuropathy and I believe this is contributing to her ongoing respiratory issues. Appreciate staff assistance with aggressive pulmonary toilet. Bibasilar infiltrates have persisted. Antibiotics adjusted to zosyn/linezolid yesterday per ID. No fever. She does have uptrending leukocytosis. Will d/c steroids to effort to mitigate weakness. Family and patient aware she may require intubation (which could very well lead to trach due to her weakness). 02/08: Remains very weak from critical illness neuropathy and myopathy. She is requiring on and off BiPAP still. Very coarse rhonchi bilaterally. Chest x- ray shows some increase in upper lobe infiltrates. Pt/Ot. Plan bedside ultrasound to evaluate right effusion 02/09/18: Continues to be quite weak with rhonchorous breath. Bilateral scattered rhonchi and some inspiratory wheezing. Chest x-ray is stable to slightly worsening infiltrates. 02/10/18: Lying in bed appears slightly more comfortable right chest exam more clear. Left lung still has coarse rhonchi and some wheezing. Urine output more than 1.8 L in 24 hours. No bowel movements since per patient. Bowel regimen started 02/11/18: Improved exam today clinically also improved maintaining good oxygen saturation. Bilateral coarse rhonchi still present but improved. Chest x-ray stable to slight improvement in infiltrates 02/12/18: Overnight became hypotensive lowest blood pressure 82/52. Responded to 1 L fluid bolus. I am holding Coreg and lisinopril. Lasix dose reduced to 20 mg IV hold until blood pressure stable. Chest x-ray and labs today are pending. Clinically patient remained stable except for hypotension. Despite aggressive bowel regimen patient still did not have a bowel movement. KUB is pending at this time 1/5: No acute events overnight. KUB revealed probable constipation. The patient was given additional doses of laxatives yesterday afternoon and had a bowel movement last night the patient can continues on multiple laxatives at scheduled doses per the patient continues to be weak OT has been consulted in conjunction with PT for continued exercises for critical illness polyneuropathy. Neurology has been consulted for additional recommendations. Objective Vital Signs / I&O: Vital Signs 02/12/18 13:00 02/12/18 14:00 02/12/18 15:00 Temperature Pulse Rate 94 H 93 H 91 H Respiratory Rate Blood Pressure 114/61 118/73 107/60 Pulse Oximetry 99 100 99 02/12/18 15:28 02/12/18 16:00 02/12/18 17:00 Temperature 98.8 F Pulse Rate 92 H 95 H 88 Respiratory Rate 20 Blood Pressure 100/58 L 97/59 L Pulse Oximetry 100 99 02/12/18 18:00 02/12/18 19:00 02/12/18 19:58 Temperature Pulse Rate 85 91 H 90 Respiratory Rate 18 Blood Pressure 100/69 104/55 L Pulse Oximetry 99 99 100 02/12/18 20:00 02/12/18 20:55 02/12/18 21:00 Temperature 99.0 F 98.1 F Pulse Rate 88 89 Respiratory Rate Blood Pressure 113/64 Pulse Oximetry 100 98 02/12/18 22:00 02/12/18 23:00 02/12/18 23:51 Temperature Pulse Rate 92 H 90 96 H Respiratory Rate 20 Blood Pressure 115/66 112/65 Pulse Oximetry 100 99 02/13/18 00:00 02/13/18 01:00 02/13/18 02:00 Temperature 98.2 F Pulse Rate 95 H 97 H 91 H Respiratory Rate Blood Pressure 110/61 113/63 119/65 Pulse Oximetry 99 99 98 02/13/18 03:00 02/13/18 03:48 02/13/18 04:00 Temperature 98.2 F Pulse Rate 90 96 H 102 H Respiratory Rate 18 Blood Pressure 114/65 109/66 Pulse Oximetry 98 98 02/13/18 05:00 02/13/18 06:00 02/13/18 08:00 Temperature Pulse Rate 82 82 69 Respiratory Rate Blood Pressure 113/64 Pulse Oximetry 99 96 Intake & Output 02/12/18 02/13/18 02/13/18 18:59 06:59 18:59 Intake Total 650 / 650 680 / 680 Output Total 900 / 900 475 / 475 Balance -250 / -250 205 / 205 Weight 58.5 kg Intake: IV 300 / 300 300 / 300 Zyvox 600 mg Premix 300 ML @ 300 / 300 300 / 300 300 mls/hr IV.SIG Q12H BENOIT Rx#: [id number] Oral 350 / 350 380 / 380 Output: Urine 900 / 900 475 / 475 Other: Date of Last Bowel Movement 02/12/18 02/12/18 02/12/18 # Bowel Movements 1 Result Diagrams: 02/09/18 09:10 02/13/18 04:16 Objective Remarks: GENERAL: Young female, sitting up in bed, alert and conversant. Breathing comfortably SKIN: Warm and dry. HEAD: Atraumatic. Normocephalic. EYES: Pupils equal and round. No scleral icterus. No injection or drainage. ENT: Currently on room air NECK: Trachea midline. No JVD. CARDIOVASCULAR: Regular rhythm. sinus on the monitor. RESPIRATORY: No accessory muscle use. Few rales in right base. Scattered Bilateral rhonchi predominantly left chest. GASTROINTESTINAL: Abdomen soft, non-tender, nondistended. Bowel sounds hypoactive. MUSCULOSKELETAL: Extremities without clubbing, cyanosis, trace edema. No obvious deformities. Bruising noted on right forehead left great toe 2/2 rota prone bed positioning. Also skin breakdown medial lower legs bilaterally. Right big toe has an area of gangrene medially NEUROLOGICAL: Awake, oriented to person, place, circumstance. She does move all extremities to command. Hip flexor 3/5, hamstring 2/5, wiggles toes. weak manager requirements strength bilaterally, deltoids 3/5, biceps 2/5. Procedures: 01/31: Sutured right IJ, StatLock removed. Assessment and Plan - Problem List (1) Acute respiratory failure with hypoxia and hypercarbia Code(s): J96.01 - Acute respiratory failure with hypoxia; J96.02 - Acute respiratory failure with hypercapnia Status: Resolved (2) Hepatitis Code(s): K75.9 - Inflammatory liver disease, unspecified Status: Acute (3) Bilateral pneumonia Code(s): J18.9 - Pneumonia, unspecified organism Status: Acute (4) Sepsis Code(s): A41.9 - Sepsis, unspecified organism Status: Acute (5) Hypoxia Code(s): R09.02 - Hypoxemia Status: Acute (6) Leukocytosis Code(s): D72.829 - Elevated white blood cell count, unspecified Status: Acute (7) Hyperglycemia Code(s): R73.9 - Hyperglycemia, unspecified Status: Acute (8) Thrombocytopenia Code(s): D69.6 - Thrombocytopenia, unspecified Status: Acute (9) Polyneuropathy associated with critical illness Code(s): G62.81 - Critical illness polyneuropathy Status: Acute - Assessment and Plan Plan: Plan by systems: Neurologic: Anxiety disorder Borderline personality disorder Substance use disordercocaine abuse Lortab and Tylenol as needed for pain 01/28 urine drug screen-positive for cocaine Critical illness polyneuropathy OT Daily PT. Out of bed to chair. Obtain neurology consult Obtain xray right shoulder Respiratory: Acute hypoxemic and hypercarbic respiratory failure-improving Bilateral pneumonia-improving ARDS-resolved bilateral pulmonary edema-improving Tobacco use disorder DuoNeb q4/EZPAP. Guaifenesin 600 bid. suction prn. Acapella Resp muscle weakness contributing, supporting resp effort with BIPAP as needed D/cd solumedrol. Pulmonology following. Legionella, pneumococcal urine antigens-neg. Influenza antigens A/Bneg. 01/29-intubated 7.5 ETT 22 at [facility], Extubated 02/04 Dr. Syed following. On Lasix 20 [id number] to 20 milligrams daily Cardiovascular: Right big toe gangrene Maintain MAP > 65mmHg 01/28 Echo EF 40-45%, moderately dilated left ventricle, LAD infarct vs. Taktsubo cardiomyopathy, no vegetations noted PAP 42 Repeat bedside echo 02/10/2018 appears to show improved LVEF, prior to discharge will need full echo/stress echo Coreg 12.5 bid., Losartan placed on hold due to hypotension. Status post 1 L normal saline bolus ASA [address] Mendoza evaluated, plan for stress when stabilized and out of ICU. Appreciate vascular surgery consult by Dr. Todd, CTA with runoff essentially negative Podiatry consulted and following Renal/FEN: Removed Garcia 02/05. KCL 20 mEq po bid while on Lasix. Monitoring creatinine. GI: Hepatitis C Transaminitis Metabolic alkalosis resolved. Hypernatremia Hypokalemia Regular diet. Ensure tid. Monitor CMP Electrolyte replacement per ICU protocol Patient is severely constipated despite aggressive bowel regimen Check KUB today, last bowel movement was 02/03/2018, additional laxative provided in the last 24 hours. BM 02/13 Continue Colace, lactulose and mag citrate Heme/ID: MRSA Pneumonia Severe sepsis Leukocytosis-resolved ARDS Hepatitis C AB positive - RNA viral load pending. Thrombocytopenia 01/28-Legionella, mycoplasma, pneumococcal antigens-negative 01/28 sputum culture-negative Viral respiratory PCR negative. ID consulted-Dr. Carballo following. On linezolid per ID. Zosyn DCd 02/11/1801/28 Blood MRSA. Subsequent Blood culture 02/02 NGTD. HIV- negative, CD4 185. F/U HCV PCR 02/02 Heparin platelet antibody-negative Endocrine: Hyperglycemia of critical illness No longer requiring insulin. Prophylaxis: GI Prophylaxis famotidine DVT Prophylaxis -- SCDs Lines: PIV. D/c R IJ CVL (01/29-02/05 , Right rad arterial line d/c'd 02.05. Arterial line left radial (dc'd 02/01), Mother and grandmother updated 02/[address] Moreno and multiple questions answered. Mother and grand mother updated 02/10/18 Level 3 follow-up Continue ICU care. Code Status: Full Discussed Condition With: Patient , PROGRAM PROJECT ANALYST and grandfather at bedside (3) Bilateral pneumonia Qualifiers: Pneumonia type: due to unspecified organism Lung location: unspecified part of lung Qualified Code(s): J18.9 - Pneumonia, unspecified organism (4) Sepsis Qualifiers: Sepsis type: sepsis due to unspecified organism Qualified Code(s): A41.9 - Sepsis, unspecified organism (6) Leukocytosis Qualifiers: Leukocytosis type: unspecified Qualified Code(s): D72.829 - Elevated white blood cell count, unspecified
--- NOTE | 2018-02-13 14:09 | XR ---
EXAM DATE: 02/13/2018 2:07 PM EST AGE/SEX: 32 years / Female INDICATIONS: Right shoulder pain, no known injury. CLINICAL DATA: This is the patient's initial encounter. Patient reports that signs and symptoms have been present for 1 day and indicates a pain score of 5/10. MEDICAL/SURGICAL HISTORY: None. None. COMPARISON: No prior exams available for comparison. FINDINGS: No definite fractures, or dislocations are identified. No definite lytic or sclerotic les ion is seen. The right glenohumeral joint space is well maintained. CONCLUSION: Unremarkable study. Electronically signed by: Yani Alvarado MD Board Certified Radiologist 02/13/2018 2:08 PM EST
[2018-02-14] MEDS: Enoxaparin Inj 40 MG/0.4 ML Syringe SQ SCH ×2 (00:34→21:15)
[2018-02-14] MEDS: Oral Hygiene Kit OROPHARYNG SCH ×3 (00:35→17:05)
[2018-02-14 05:10] LABS: Baso # (Auto) 0.1 th/mm3 (0.0-0.2); Baso % (Auto) 1.9 % (0.0-2.0); Eos # (Auto) 0.1 th/mm3 (0.0-0.4); Eos % (Auto) 3.5 % (0.0-4.0); Hematocrit 30.6 % (35.0-46.0); Hemoglobin 10.3 gm/dL (11.6-15.3); Lymph # (Auto) 1.3 th/mm3 (1.0-4.8); Mean Corpuscular HGB Conc 33.6 % (32.0-36.0); Mean Corpuscular Hemoglobin 35.9 pg (27.0-34.0); Mean Corpuscular Volume 106.8 fL (80.0-100.0); Mono # (Auto) 0.4 th/mm3 (0.0-0.9); Mono % (Auto) 11.1 % (0.0-8.0); Neut # (Auto) 1.7 th/mm3 (1.8-7.7); Neut % (Auto) 47.5 % (16.0-70.0); Platelet Count 186 th/mm3 (150-450); Red Blood Count 2.87 mil/mm3 (4.00-5.30); Red Cell Distribution Width 17.6 % (11.6-17.2); White Blood Count 3.7 th/mm3 (4.0-11.0)
[2018-02-14 05:31] LABS: Anion Gap 5 meq/L (5-15); Blood Urea Nitrogen 13 mg/dL (7-18); Calcium 8.8 mg/dL (8.5-10.1); Carbon Dioxide 25.8 meq/L (21.0-32.0); Chloride 107 meq/L (98-107); Glomerular Filtration Rate Greater Than 89 mL/min (>89); Glucose,Random 84 mg/dL (74-106); Potassium 4.1 meq/L (3.5-5.1); Sodium 138 meq/L (136-145)
[2018-02-14] MEDS: Famotidine 20 MG Tablet PO SCH ×2 (08:04→20:03)
[2018-02-14] MEDS: guaiFENesin 600 MG ER Tablet PO SCH ×2 (08:04→20:03)
[2018-02-14] MEDS: Chlorhexidine 0.12% Oral Kit 15 ML UDC OROPHARYNG SCH ×2 (08:04→20:02)
[2018-02-14] MEDS: Sodium Chloride 0.9% 2 ML Flush BID IV.FLUSH SCH ×2 (08:05→20:03)
[2018-02-14] MEDS: Senna/Docusate Sodium 8.6/50 MG Tablet PO SCH ×2 (08:05→20:03)
--- NOTE | 2018-02-14 16:35 | P.PNCC ---
Subjective Subjective Remarks/Hospital Course: This is a 32-year-old female that presented to the emergency department last evening. Per report reviewed the patient had complaints myalgias, nausea, vomiting diarrhea in conjunction fever and chills per review of the records the patient went to an urgent care center on and was diagnosed with the flu and subsequently sent home the patient stated her symptoms worsen so she presented to [facility] ED on 2017. Upon presentation imaging and laboratory studies were performed that initially revealed a significant leukocytosis with a WBC count of 20.8, hypokalemia and a chest x-ray revealing extensive bilateral airspace disease. The patient was bolused with IV fluids, and received prophylactic antibiotics, blood cultures were obtained. The patient was admitted to ICU at [place] and ICU was consulted on 01/28/2018 at 2059 ,and was placed on BiPAP overnight with worsening symptomatology. Respiratory rate throughout the night was noted to be in the high 30s-50, with O2 saturation 87-91 % throughout the night. Upon my arrival this am, I examined the patient at 0615, and upon my evaluation this a.m. was noted to be extremely dyspneic, unable to speak secondary to extreme dyspnea, respiratory rate 48-50, and O2 sat 86-87%. A stat ABG was obtained PaO2 was noted to be 84, on 100%, and the patient kept stating she could not breathe. The patient was emergently intubated x1 attempt. Visually O2 saturation remained in the mid 80s-88 % on PEEP 12, FIO2 of 100%, with a slightly extended I- time. A stat ABG was performed PaO2 was noted to be 72, ventilator adjustments continued to optimize oxygenation. Emergent A-line was placed for frequent blood sampling, to evaluate oxygenation. The patient was noted to be in a sinus tach the patient was bolused with additional IV fluids 2 L and placed on sedation, to include, Versed , propofol, fentanyl infusions. The patient's past medical history is significant for hepatitis C, borderline personality disorder Funes acted 2017 secondary to chronic anxiety per records reviewed the patient takes Klonopin. 01/30: The patient's oxygenation moved by midday 01/29, and the patient was transferred via ambulance to [facility]. On her arrival the patient had a CVL placed, echo performed peer and the patient was placed on prone bed for prone positioning. Upon prone positioning, the patient's O2 saturation improved. FiO2 currently is at 60% when patient is in prone position with O2 sat of 100%. The patient remains deeply sedated with neuromuscular blockade Nemex for prone positioning. Urine output is equivalent to 1 cc/kg/h the patient was noted to have a metabolic acidosis this a.m., 50 mEq of sodium bicarbonate was given, IV fluids changed to one half normal saline at 100 cc/ hour. Noted lactic acidemia now resolved. One bottle blood culture showed gram -positive cocci. Discussed with patient's mother and permission granted to obtain HIV labs, deemed medically necessary per ID Dr. Carballo. 01/31: Decreasing FiO2 requirements at this time. Chest x-ray suggestive of interstitial edema, Lasix 40 mg x1 dose provided. IV fluids decreased to 42 cc/ hr . Secondary to prone positioning StatLock removed and central line sutured in place, to prevent possible dislodgment and prone position. Cultures revealed sputum MRSA, and blood gram-positive cocci. HIV testing labs negative. 02/01: Noted improvement clinically and respiratory status O2 requirements have been decreased 0.45% and a PEEP of 8. Patient noted to have a positive fluid balance was diuresed yesterday, chest x-ray shows persistent pulmonary edema Lasix dosing increased to twice daily IV fluids have now been discontinued. Noted thrombocytopenia, heparin platelet antibody has been ordered. Colitis currently being replaced. 02/02: fio2 continues to improve. supinated today and remains stable x 8 hrs. can likely transition off RotaProne bed today. continues to be very volume overloaded, although adequate start to diuresis yesterday. 02/03: The patient was removed from rota prone bread at 1800 yesterday. The patient continues to improve oxygenation. Versed continually being weaned down in anticipation for CPAP trials. Dietary consult has been initiated for tube feeds. 02/04: Afebrile. the patient remained on CPAP trials throughout yesterday afternoon, placed back on a rate last evening. CPAP trials have been reinitiated this a.m. SBT parameters currently being obtain ABG within normal limits plan for possible extubation today 02/05 Tolerated extubation yesterday and remains on 5 L nasal cannula. Has passed bedside swallow evaluation and is requesting to advance diet. Temp max 100.5. Sputum culture 02/03 pending. On cefepime, azithro and vanc per ID. Has been diuresed aggressively. Creatinine normal, alkalosis. Remove invasive lines and Garcia today. Out of bed 02/06 Alkalosis has given way to bicarb of 18.4 following diamox. She is on 6 L NC but is tachypneic, more dyspneic today. +thick sputum production and respiratory muscle weakness are contributing. Guafenesin/nebs/EZPAP. Bipap to support now. May require reintubation, but trying to avoid. Subjective: 02/07 On and off Bipap. She is very weak with critical illness polyneuropathy and I believe this is contributing to her ongoing respiratory issues. Appreciate staff assistance with aggressive pulmonary toilet. Bibasilar infiltrates have persisted. Antibiotics adjusted to zosyn/linezolid yesterday per ID. No fever. She does have uptrending leukocytosis. Will d/c steroids to effort to mitigate weakness. Family and patient aware she may require intubation (which could very well lead to trach due to her weakness). 02/08: Remains very weak from critical illness neuropathy and myopathy. She is requiring on and off BiPAP still. Very coarse rhonchi bilaterally. Chest x- ray shows some increase in upper lobe infiltrates. Pt/Ot. Plan bedside ultrasound to evaluate right effusion 02/09/18: Continues to be quite weak with rhonchorous breath. Bilateral scattered rhonchi and some inspiratory wheezing. Chest x-ray is stable to slightly worsening infiltrates. 02/10/18: Lying in bed appears slightly more comfortable right chest exam more clear. Left lung still has coarse rhonchi and some wheezing. Urine output more than 1.8 L in 24 hours. No bowel movements since per patient. Bowel regimen started 02/11/18: Improved exam today clinically also improved maintaining good oxygen saturation. Bilateral coarse rhonchi still present but improved. Chest x-ray stable to slight improvement in infiltrates 02/12/18: Overnight became hypotensive lowest blood pressure 82/52. Responded to 1 L fluid bolus. I am holding Coreg and lisinopril. Lasix dose reduced to 20 mg IV hold until blood pressure stable. Chest x-ray and labs today are pending. Clinically patient remained stable except for hypotension. Despite aggressive bowel regimen patient still did not have a bowel movement. KUB is pending at this time 1/5: No acute events overnight. KUB revealed probable constipation. The patient was given additional doses of laxatives yesterday afternoon and had a bowel movement last night the patient can continues on multiple laxatives at scheduled doses per the patient continues to be weak OT has been consulted in conjunction with PT for continued exercises for critical illness polyneuropathy. Neurology has been consulted for additional recommendations. 02/14: Continues to complain of left upper extremity weakness ,numbness and tingling. Patient continues with physical therapy . Patient stood in supine position today, and sat in chair for 3.5 hours. She is tolerating a diet. Patient continues on Mona-Colace with bowel movement yesterday. Objective Vital Signs / I&O: Vital Signs 02/13/18 17:00 02/13/18 18:00 02/13/18 19:00 Temperature Pulse Rate 86 93 H 92 H Respiratory Rate Blood Pressure 119/70 120/73 120/70 Pulse Oximetry 99 99 100 02/13/18 20:00 02/13/18 21:00 02/13/18 22:00 Temperature 98.5 F Pulse Rate 97 H 97 H 106 H Respiratory Rate Blood Pressure 115/60 116/67 115/82 Pulse Oximetry 99 99 99 02/13/18 23:00 02/14/18 00:00 02/14/18 01:00 Temperature Pulse Rate 87 87 83 Respiratory Rate 18 Blood Pressure 117/61 117/66 117/61 Pulse Oximetry 100 02/14/18 02:00 02/14/18 03:00 02/14/18 04:00 Temperature 98 F Pulse Rate 85 78 79 Respiratory Rate Blood Pressure 110/63 120/60 118/68 Pulse Oximetry 100 100 99 02/14/18 06:00 02/14/18 07:00 02/14/18 07:55 Temperature Pulse Rate 79 82 Respiratory Rate Blood Pressure 113/68 Pulse Oximetry 100 97 02/14/18 08:00 02/14/18 09:00 02/14/18 10:00 Temperature Pulse Rate 77 95 H 110 H Respiratory Rate Blood Pressure 107/62 129/77 119/74 Pulse Oximetry 99 92 L 92 L Intake & Output 02/13/18 02/14/18 02/14/18 18:59 06:59 18:59 Intake Total 850 / 850 750 / 750 Output Total 800 / 800 600 / 600 Balance 50 / 50 150 / 150 Weight 60 kg Intake: IV 600 / 600 Zyvox 600 mg Premix 300 ML @ 600 / 600 300 mls/hr IV.SIG Q12H BENOIT Rx#: [id number] Oral 850 / 850 150 / 150 Output: Urine 800 / 800 600 / 600 Other: # Voids 3 Date of Last Bowel Movement 02/12/18 02/12/18 02/12/18 Result Diagrams: 02/14/18 03:38 02/14/18 03:38 Objective Remarks: GENERAL: Young female, sitting up in bed, alert and conversant. Breathing comfortably on room air SKIN: Warm and dry. HEAD: Atraumatic. Normocephalic. EYES: Pupils equal and round. No scleral icterus. No injection or drainage. ENT: Currently on room air NECK: Trachea midline. No JVD. CARDIOVASCULAR: Regular rhythm. sinus on the monitor. RESPIRATORY: No accessory muscle use. Few rales in right base. Scattered Bilateral rhonchi predominantly left chest. GASTROINTESTINAL: Abdomen soft, non-tender, nondistended. Bowel sounds hypoactive. MUSCULOSKELETAL: Extremities without clubbing, cyanosis, trace edema. No obvious deformities. Bruising noted on right forehead left great toe 2/2 rota prone bed positioning. Also skin breakdown medial lower legs bilaterally. Right big toe has an area of gangrene medially NEUROLOGICAL: Awake, oriented to person, place, circumstance. She does move all extremities to command. Hip flexor 3/5, hamstring 2/5, wiggles toes. weak private tutors and teachers strength bilaterally, deltoids 3/5, biceps 2/5. Procedures: 01/31: Sutured right IJ, StatLock removed. Assessment and Plan - Problem List (1) Acute respiratory failure with hypoxia and hypercarbia Code(s): J96.01 - Acute respiratory failure with hypoxia; J96.02 - Acute respiratory failure with hypercapnia Status: Resolved (2) Hepatitis Code(s): K75.9 - Inflammatory liver disease, unspecified Status: Acute (3) Bilateral pneumonia Code(s): J18.9 - Pneumonia, unspecified organism Status: Acute (4) Sepsis Code(s): A41.9 - Sepsis, unspecified organism Status: Acute (5) Hypoxia Code(s): R09.02 - Hypoxemia Status: Acute (6) Leukocytosis Code(s): D72.829 - Elevated white blood cell count, unspecified Status: Acute - Assessment and Plan Plan: Plan by systems: Neurologic: Anxiety disorder Borderline personality disorder Acetaminophen 650 mg every 6 hours as needed for temperature greater than 101.0 GCS 15 Respiratory: Acute hypoxemic and hypercarbic respiratory failure Bilateral pneumonia Tobacco use disorder Currently on room air O2 saturation 97% Pulmonology following Influenza antigens A/Bneg 01/29-intubated 7.5 ETT 22 at [facility], extubated 02/04 Cardiovascular: Sinus tachycardia-resolved Maintain MAP > 65mmHg Renal: No Garcia -- Strict I/Os FEN/GI: Hypokalemia Hypomagnesemia Hepatitis C Transaminitis Regular diet Electrolyte replacement per ICU protocol Bowel regimen Heme/ID: Pneumonia Severe sepsis Leukocytosis ARDS Legionella, mycoplasma, pneumococcal antigens-negative blood culture-NGTD Monitor CBC Patient initiated on azithromycin 500 mg every 24, and cefepime 2 g every 8hr ( day 2), vancomycin added to medication regimen ID following Sputum culture-MRSA Endocrine: Glucose monitoring per ICU protocol 4 hours SSI Musculoskeletal: Critical illness polyneuropathy Continue OT and PT Neurology consulted for recommendations Weakness paresthesia left hand left upper extremity Prophylaxis: GI Prophylaxis famotidine DVT Prophylaxis -- SCDs Lines: Peripheral IVs x3. A Level 2 follow-up. Plan transfer to [facility] in a.m. Plan transfer to [facility] floor upon bed availability Code Status: Full Discussed Condition With: Patient and GRAPHICS PROGRAMMER at bedside (3) Bilateral pneumonia Qualifiers: Pneumonia type: due to unspecified organism Lung location: unspecified part of lung Qualified Code(s): J18.9 - Pneumonia, unspecified organism (4) Sepsis Qualifiers: Sepsis type: sepsis due to unspecified organism Qualified Code(s): A41.9 - Sepsis, unspecified organism (6) Leukocytosis Qualifiers: Leukocytosis type: unspecified Qualified Code(s): D72.829 - Elevated white blood cell count, unspecified
[2018-02-14] MEDS: Acetaminophen 325 MG Tablet PO PRN (21:44)
[2018-02-15] MEDS: Oral Hygiene Kit OROPHARYNG SCH ×4 (00:11→17:14)
[2018-02-15 06:47] LABS: Hematocrit 29.2 % (35.0-46.0); Hemoglobin 10.1 gm/dL (11.6-15.3); Mean Corpuscular HGB Conc 34.6 % (32.0-36.0); Mean Corpuscular Hemoglobin 36.6 pg (27.0-34.0); Mean Corpuscular Volume 105.7 fL (80.0-100.0); Platelet Count 154 th/mm3 (150-450); Red Blood Count 2.76 mil/mm3 (4.00-5.30); White Blood Count 3.3 th/mm3 (4.0-11.0)
[2018-02-15 07:06] LABS: Anion Gap 6 meq/L (5-15); Blood Urea Nitrogen 17 mg/dL (7-18); Calcium 9.1 mg/dL (8.5-10.1); Carbon Dioxide 26.1 meq/L (21.0-32.0); Chloride 106 meq/L (98-107); Glomerular Filtration Rate Greater Than 89 mL/min (>89); Glucose,Random 73 mg/dL (74-106); Magnesium 1.8 mg/dL (1.5-2.5); Phosphorus 3.2 mg/dL (2.5-4.9); Potassium 4.2 meq/L (3.5-5.1); Sodium 138 meq/L (136-145)
[2018-02-15] MEDS: Famotidine 20 MG Tablet PO SCH ×2 (08:12→21:47)
[2018-02-15] MEDS: Senna/Docusate Sodium 8.6/50 MG Tablet PO SCH ×2 (08:12→21:47)
[2018-02-15] MEDS: guaiFENesin 600 MG ER Tablet PO SCH ×2 (08:12→21:47)
[2018-02-15] MEDS: Sodium Chloride 0.9% 2 ML Flush BID IV.FLUSH SCH ×2 (08:14→21:48)
[2018-02-15] MEDS: Chlorhexidine 0.12% Oral Kit 15 ML UDC OROPHARYNG SCH ×2 (08:15→21:48)
--- NOTE | 2018-02-15 10:16 | P.PNIM ---
Subjective Interval history: Unfortunate 32-year-old female admitted to the hospital with acute respiratory failure secondary to bilateral pneumonia. The patient has had a prolonged ICU course requiring intubation and roto prone. She has been under the care of the critical care service. She has been extubated and respiratory status is improved. However she remains profoundly weak. Patient seen and evaluated today. She is sitting up in the chair. She reports her breathing is okay but still having significant issues with weakness requiring assistance. Care has been transferred to the hospitalist service Physical Exam Vital signs: Last Vital Signs Temp 98.8 F 02/15/18 04:00 Pulse 81 02/15/18 04:00 Resp 14 02/15/18 04:00 BP 121/62 02/15/18 04:00 Pulse Ox 100 02/15/18 08:33 Intake & Output 02/13/18 02/14/18 02/15/18 02/16/18 06:59 06:59 06:59 06:59 Intake Total 1330 / 1330 1600 / 1600 1080 / 1080 Output Total 1375 / 1375 1400 / 1400 Balance -45 / -45 200 / 200 1080 / 1080 Weight 58.5 kg 60 kg 59.5 kg Narrative: GENERAL: This is a well-nourished, well-developed patient, in no apparent distress. CARDIOVASCULAR: Normal rate and regular rhythm without murmurs, gallops, or rubs. RESPIRATORY: Good respiratory efforts. Breath sounds equal and clear to auscultation bilaterally. GASTROINTESTINAL: Abdomen soft, non-tender, non-distended. Normal active bowel sounds MUSCULOSKELETAL: Extremities without cyanosis, or edema. NEURO: Alert & Oriented x4 to person, place, time, situation. Generalized weakness. endorsed paresthesia LUE PSYCH: Appropriate mood and affect. Urinary Catheter Management Indwelling Urethral Catheter: Cath placed during this visit: yes Urethral indwelling: No Insertion date: 01/29/18 Insertion time: 07:15 Straight: Cath placed during this visit: yes, but has since been removed by the nurse Insertion date: 02/12/18 Insertion time: 06:15 Removal date: 02/12/18 Removal time: 06:20 Results Labs CBC & Chem 7: 02/15/18 05:13 02/15/18 05:13 Assessment and Plan (1) Acute respiratory failure with hypoxia and hypercarbia: Code(s): J96.01 - Acute respiratory failure with hypoxia; J96.02 - Acute respiratory failure with hypercapnia Status: Resolved (2) Hepatitis: Code(s): K75.9 - Inflammatory liver disease, unspecified Status: Acute (3) Bilateral pneumonia: Code(s): J18.9 - Pneumonia, unspecified organism Status: Acute (4) Sepsis: Code(s): A41.9 - Sepsis, unspecified organism Status: Acute (5) Hypoxia: Code(s): R09.02 - Hypoxemia Status: Acute (6) Leukocytosis: Code(s): D72.829 - Elevated white blood cell count, unspecified Status: Acute Plan 32-year-old female with: Acute hypoxemic and hypercapnic respiratory failure secondary to bilateral pneumonia: - Status post extensive and prolonged ICU course requiring intubation, roto prone. Patient ultimately extubated. -Currently stable on room air.01/29-intubated 7.5 ETT 22 at the lip, extubated 02/04 - Continue treatment for pneumonia. She is on Zyvox per ID. Breathing treatments and supplemental oxygen as needed. Anxiety disorder Borderline personality disorder - Anxiolytics as needed Pneumonia Severe sepsis Leukocytosis ARDS Legionella, mycoplasma, pneumococcal antigens-negative blood culture-NGTD Monitor CBC On Zyvox per ID ID following Sputum culture-MRSA Critical illness polyneuropathy Continue OT and PT Neurology consulted for recommendations Weakness paresthesia left hand left upper extremity. ?Peripheral related to roto prone. GI Prophylaxis famotidine DVT Prophylaxis -- SCDs DC Lasix. OK to Transfer to floor. Progress Note: Quality VTE Deep Vein Thrombosis/Pulmonary Embolism Present on Admission: No _ (1) Leukocytosis Qualifiers: Leukocytosis type: unspecified Qualified Code(s): D72.829 - Elevated white blood cell count, unspecified (2) Sepsis Qualifiers: Sepsis type: sepsis due to unspecified organism Qualified Code(s): A41.9 - Sepsis, unspecified organism (3) Bilateral pneumonia Qualifiers: Aspiration pneumonia type: Lung location: unspecified part of lung Pneumonia type: due to unspecified organism Qualified Code(s): J18.9 - Pneumonia, unspecified organism
--- NOTE | 2018-02-15 11:57 | P.PNID ---
Subjective Remarks: Patient complains of numbness of the right great toe. Patient's mom reports that she has drainage coming from the right great toe. Awake and alert. Up in bedside chair. Afebrile. Denies shortness of breath. 32-year-old white female who presented to the emergency department yesterday evening with respiratory symptoms. Emergency department report stated that the patient developed symptoms about a week ago consisting of body aches, nausea, vomiting, diarrhea, fever, chills, and sweats. She was seen at an urgent care center about a week ago and was diagnosed with flu. She subsequently developed a sore throat and pain on swallowing and loss of the voice as well as nonproductive cough. Her energy level is also reported to be very low. The patient was seen in the emergency department and temperature was 98.6, heart rate was elevated at 122, and white count was elevated at 20.8. She was put on nonrebreather mask and oxygen saturation was noted to be between 88% and 92%. She was subsequently intubated. Antibiotics: zyvox Past Medical History: PAST MEDICAL HISTORY: Reportedly negative. The patient has been evaluated for psychiatric adjustment disorder. Allergies/Adverse Reactions: Allergies Sulfa (Sulfonamide Antibiotics) Allergy (Intermediate, Verified 05/14/17 22:25) PT STATES INCREASES HER TEMP Objective Vital Signs 02/14/18 12:00 02/14/18 13:00 02/14/18 14:00 Temperature Pulse Rate 98 H 105 H 96 H Respiratory Rate Blood Pressure 118/81 141/81 H 127/66 Pulse Oximetry 96 99 100 02/14/18 15:00 02/14/18 16:00 02/14/18 17:00 Temperature Pulse Rate 97 H 87 81 Respiratory Rate Blood Pressure 129/67 118/68 112/60 Pulse Oximetry 02/14/18 18:00 02/14/18 19:00 02/14/18 20:00 Temperature 98.4 F Pulse Rate 95 H 92 H 93 H Respiratory Rate Blood Pressure 115/73 117/66 113/67 Pulse Oximetry 99 99 02/14/18 21:00 02/14/18 21:15 02/14/18 22:00 Temperature Pulse Rate 78 99 H Respiratory Rate 18 Blood Pressure 109/58 L 112/58 L Pulse Oximetry 97 02/15/18 00:00 02/15/18 04:00 02/15/18 08:33 Temperature 98.6 F 98.8 F Pulse Rate 93 H 81 Respiratory Rate 16 14 Blood Pressure 130/67 121/62 Pulse Oximetry 98 98 100 Intake & Output 02/14/18 02/15/18 02/15/18 18:59 06:59 18:59 Intake Total 300 / 300 780 / 780 Balance 300 / 300 780 / 780 Weight 59.5 kg Intake: IV 300 / 300 300 / 300 Zyvox 600 mg Premix 300 ML @ 300 / 300 300 / 300 300 mls/hr IV.SIG Q12H BENOIT Rx#: [id number] Oral 480 / 480 Other: # Voids 3 2 Date of Last Bowel Movement 02/12/18 02/14/18 # Bowel Movements 1 02/07/18 13:13 Blood - Peripheral Aerobic Blood Culture - Final No growth in 5 days 02/07/18 13:13 Blood - Peripheral Anaerobic Blood Culture - Final No growth in 5 days 02/07/18 13:04 Blood - Peripheral Aerobic Blood Culture - Final No growth in 5 days 02/07/18 13:04 Blood - Peripheral Anaerobic Blood Culture - Final No growth in 5 days Lab - Hematology Results 02/14/18 02/15/18 03:38 05:13 WBC 3.7 L 3.3 L RBC 2.87 L 2.76 L Hgb 10.3 L 10.1 L Hct 30.6 L 29.2 L MCV 106.8 H 105.7 H MCH 35.9 H 36.6 H MCHC 33.6 34.6 RDW 17.6 H 17.0 Plt Count 186 154 MPV 9.0 9.0 Neut % (Auto) 47.5 Lymph % (Auto) 36.0 Addison % (Auto) 11.1 H Eos % (Auto) 3.5 Baso % (Auto) 1.9 Neut # (Auto) 1.7 L Lymph # (Auto) 1.3 Addison # (Auto) 0.4 Eos # (Auto) 0.1 Baso # (Auto) 0.1 WBC Differential . Differential Comment Auto diff final Lab - Chemistry Results 02/14/18 02/15/18 03:38 05:13 Sodium 138 138 Potassium 4.1 4.2 Chloride 107 106 Carbon Dioxide 25.8 26.1 Anion Gap 5 6 BUN 13 17 Creatinine 0.48 L 0.37 L Estimated GFR Greater than 89 Greater than 89 Random Glucose 84 73 L Calcium 8.8 9.1 Phosphorus 3.2 Magnesium 1.8 Imaging: ITS Impressions Chest CT 01/28/18 18:20 CONCLUSION: Extensive bilateral airspace disease Venous Doppler Study 02/07/18 13:15 CONCLUSION: The study is negative for bilateral lower extremity deep venous thrombosis. Aorta w/Runoff CTA 02/10/18 00:00 CONCLUSION: 1. Negative CTA. 2. Bibasilar areas of consolidation or atelectasis being worse in the right. Chest X-Ray 02/12/18 00:00 CONCLUSION: Minimal improvement, persistent airspace disease remains on the right. Abdomen X-Ray 02/12/18 08:51 CONCLUSION: Scattered stool with minimal scattered loops of large and small bowel nonspecific fashion. This has more the appearance of constipation. Shoulder X-Ray 02/13/18 13:00 CONCLUSION: Unremarkable study. Physical Exam: GENERAL: Awake and alert. No acute distress. HEENT: Extraocular movements grossly intact. Pupils reactive to light. No icterus. NECK: No adenopathy or swelling. LUNGS: Slight rhonchi at the bases. Breath sounds are otherwise clear. HEART: Normal S1 and S2, without audible murmurs, rubs, or gallops. ABDOMEN: Decreased bowel sounds. Soft, nontender. No palpable mass. EXTREMITIES: No clubbing. No cyanosis, trace edema. The right great toe has erythema at the tuft mostly towards the inner plantar aspect and towards the nailbed. There is also erythema along the base of the nailbed. Serous drainage is expressed at the base of the nailbed on palpation. The nail bed appears intact. Decreased sensation over the area of redness. SKIN: No rash. warm and moist. NEUROLOGIC: Nonfocal. PSYCHIATRIC: Calm and cooperative. Lines without evidence of infection. Assessment and Plan - Plan IMPRESSION: 1. Bilateral pneumonia. MRSA. Improved. 2. Bacteremia. Staph aureus. MSSA. 3. Hypoxia. 4. Acute respiratory failure. Extubated Respiratory status improved after she required high FiO2 yesterday. 5. Elevated liver function tests. Improved. 6. Leukocytosis. WBCs no low. Lately count also decreased. 7. ALLERGY TO SULFA. Appears stable. RECOMMENDATIONS: 1. Stop linezolid 2. Obtain culture of the right great toe drainage. 3. Begin cefuroxime. 4. Follow the culture of the right great toe drainage. Discussed with
--- NOTE | 2018-02-15 16:39 | P.DIET ---
Nutritional Evaluation Type of nutrition evaluation: follow-up Nutrition consult regarding: Tube Feeding [place] [facility] [place] [facility] [place] [facility] [place] Objective - Diagnosis Bilateral Pneumonia w/Hypoxia, Sepsis, Leukocytosis - Objective % IBW: 109 Body Weight Used for Calculations: Actual (66.6 kg) Energy Needs - Lower Range (kCal/kg): 25 Energy Needs - Upper Range (kCal/kg): 30 Lower Limit kCal/kg (kCals): 1,665 Upper Limit kCal/kg (kCals): 1,998 Lower Limit Protein Factor (Grams per Kg): 1.1 Upper Limit Protein Factor (Grams per Kg): 1.3 Lower Protein Needs (Protein): 73 Upper Protein Needs (Protein): 87 Dietitian Reviewed in Medical Record: Curent medications, Intake & Output, Labs , Medical history Diet Order: regular, ensure original x3 Oral Diet Intake Amount: Fair 50-75% Objective Comments: PMH includes: Hep C, borderline personality, anxiety LBM 02/14/18 Assessment Assessment: Pt remains at high nutritional risk r/t diagnosis. Pt transfered to [address]. Pt currently on regular diet now and has been tolerating. Continue sending Ensure Enlive TID PO supplement. Continue to monitor PO and supplement intake. Labs reviewed, dietitian following. Recommendations: 1. RD recommend continuing Ensure Enlive TID as PO supplement for additional nutrition 2. Continue to monitor PO and supplement intake 3. Dietitian following Dietitian to Monitor: Lab values, Supplement acceptance, Intake & Output, Diet tolerance, Weight change, PO Intake, Medical course
[2018-02-15] MEDS: Enoxaparin Inj 40 MG/0.4 ML Syringe SQ SCH (21:49)
[2018-02-16] MEDS: Oral Hygiene Kit OROPHARYNG SCH ×4 (00:59→15:15)
[2018-02-16] MEDS: Famotidine 20 MG Tablet PO SCH ×2 (08:12→20:56)
[2018-02-16] MEDS: guaiFENesin 600 MG ER Tablet PO SCH ×2 (08:12→20:56)
[2018-02-16] MEDS: Chlorhexidine 0.12% Oral Kit 15 ML UDC OROPHARYNG SCH ×2 (08:13→20:57)
[2018-02-16] MEDS: Senna/Docusate Sodium 8.6/50 MG Tablet PO SCH ×2 (08:14→20:57)
[2018-02-16] MEDS: Sodium Chloride 0.9% 2 ML Flush BID IV.FLUSH SCH ×2 (08:14→20:57)
--- NOTE | 2018-02-16 13:16 | P.PNFP ---
Subjective Interval history: Feeling well, no cp sob Vss on room air requesting to be restarted on home medication Paxil and Topamax. Results - Labs Result diagrams: 02/15/18 05:13 02/15/18 05:13 Physical Exam Vital signs: Vital Signs 02/15/18 13:00 02/15/18 14:00 02/15/18 15:00 Temperature Pulse Rate 116 H 115 H 118 H Respiratory Rate Blood Pressure 117/84 128/71 137/60 Pulse Oximetry 99 100 98 02/15/18 16:00 02/15/18 20:00 02/15/18 23:59 Temperature 98.4 F 98.4 F Pulse Rate 109 H 115 H Respiratory Rate 17 20 Blood Pressure 131/63 134/75 Pulse Oximetry 97 97 99 02/16/18 00:00 02/16/18 08:00 Temperature 98.1 F 98.2 F Pulse Rate 107 H 91 H Respiratory Rate 20 17 Blood Pressure 108/55 L 114/71 Pulse Oximetry 96 98 Intake & Output 02/15/18 02/16/18 02/16/18 18:59 06:59 18:59 Intake Total 525 / 525 120 / 120 Output Total 701 / 701 Balance -176 / -176 120 / 120 Weight 49.9 kg Intake: Oral 525 / 525 120 / 120 Output: Urine 700 / 700 Urine/Stool Mix Other: # Voids 4 1 1 Date of Last Bowel Movement 02/15/18 02/16/18 # Bowel Movements 1 1 - Constitutional no acute distress - Routine HEENT Exam Eye: Present: PERRL ENT: Present: mucous membranes moist - Routine Respiratory Exam Present: CTA bilaterally - Routine Cardiovascular Exam Present: S1, S2 - Routine Abdominal Exam Present: soft, normoactive bowel sounds - Routine Skin Exam Present: dry, warm - Routine Neurological Exam Present: alert, oriented X3 - Routine Psychiatric Exam Present: cooperative - Urinary Catheter Management Indwelling Urethral Catheter Cath placed during this visit: yes Urethral indwelling: No Reason for continuing: Other continuation reason Insertion date: 01/29/18 Insertion time: 07:15 Straight Cath placed during this visit: yes, but has since been removed by the nurse Reason for continuing: Not indwelling catheter Insertion date: 02/12/18 Insertion time: 06:15 Removal date: 02/12/18 Removal time: 06:20 Assessment and Plan - Assessment (1) Bilateral pneumonia Code(s): J18.9 - Pneumonia, unspecified organism Status: Acute Plan: stable Zyvox dc started on Ceftin ID following (2) Sepsis Code(s): A41.9 - Sepsis, unspecified organism Status: Acute Plan: Severe sepsis R/t pneumonia- resolved ID following Sputum culture-MRSA Blood cultures Negative (3) Acute respiratory failure with hypoxia and hypercarbia Code(s): J96.01 - Acute respiratory failure with hypoxia; J96.02 - Acute respiratory failure with hypercapnia Status: Resolved Plan: Required mechanical ventilation Room air, sat's maintained, Cont with bronchodilators, oxygen support (4) Anxiety Code(s): F41.9 - Anxiety disorder, unspecified Status: Acute Plan: cont Ativan Restart home medication Paxil (5) Mood disorder Code(s): F39 - Unspecified mood [affective] disorder Status: Acute Plan: Restart home medication gabapentin (6) Migraines Code(s): G43.909 - Migraine, unspecified, not intractable, without status migrainosus Status: Acute Plan: Restart home medication Topamax - Assessment and Plan 02/16/18- will restart home medications, PT activity, she is weak rehab recommended She has no payor source. (1) Bilateral pneumonia Qualifiers: Pneumonia type: due to unspecified organism Lung location: unspecified part of lung Qualified Code(s): J18.9 - Pneumonia, unspecified organism (2) Sepsis Qualifiers: Sepsis type: sepsis due to unspecified organism Qualified Code(s): A41.9 - Sepsis, unspecified organism
--- NOTE | 2018-02-16 16:13 | P.PNID ---
Subjective Remarks: Patient complains of numbness of the right great toe. Otherwise she reports that she is okay. No shortness of breath. Notes that she is weak in the upper body. Afebrile. Denies shortness of breath. Wound culture from the right great toe is negative 32-year-old white female who presented to the emergency department yesterday evening with respiratory symptoms. Emergency department report stated that the patient developed symptoms about a week ago consisting of body aches, nausea, vomiting, diarrhea, fever, chills, and sweats. She was seen at an urgent care center about a week ago and was diagnosed with flu. She subsequently developed a sore throat and pain on swallowing and loss of the voice as well as nonproductive cough. Her energy level is also reported to be very low. The patient was seen in the emergency department and temperature was 98.6, heart rate was elevated at 122, and white count was elevated at 20.8. She was put on nonrebreather mask and oxygen saturation was noted to be between 88% and 92%. She was subsequently intubated. Antibiotics: Cefuroxime Past Medical History: PAST MEDICAL HISTORY: Reportedly negative. The patient has been evaluated for psychiatric adjustment disorder. Allergies/Adverse Reactions: Allergies Sulfa (Sulfonamide Antibiotics) Allergy (Intermediate, Verified 05/14/17 22:25) PT STATES INCREASES HER TEMP Objective Vital Signs 02/15/18 20:00 02/15/18 23:59 02/16/18 00:00 Temperature 98.4 F 98.1 F Pulse Rate 115 H 107 H Respiratory Rate 20 20 Blood Pressure 134/75 108/55 L Pulse Oximetry 97 99 96 02/16/18 08:00 02/16/18 12:00 Temperature 98.2 F 97.8 F Pulse Rate 91 H 123 H Respiratory Rate 17 19 Blood Pressure 114/71 116/59 L Pulse Oximetry 98 94 L Intake & Output 02/15/18 02/16/18 02/16/18 18:59 06:59 18:59 Intake Total 525 / 525 120 / 120 Output Total 701 / 701 Balance -176 / -176 120 / 120 Weight 49.9 kg Intake: Oral 525 / 525 120 / 120 Output: Urine 700 / 700 Urine/Stool Mix Other: # Voids 4 1 1 Date of Last Bowel Movement 02/15/18 02/16/18 # Bowel Movements 1 1 02/15/18 11:45 Wound - Toe Gram Stain - Final 02/15/18 11:45 Wound - Toe Wound Culture - Preliminary No growth in 24 hours Lab - Hematology Results 02/15/18 05:13 WBC 3.3 L RBC 2.76 L Hgb 10.1 L Hct 29.2 L MCV 105.7 H MCH 36.6 H MCHC 34.6 RDW 17.0 Plt Count 154 MPV 9.0 Lab - Chemistry Results 02/15/18 05:13 Sodium 138 Potassium 4.2 Chloride 106 Carbon Dioxide 26.1 Anion Gap 6 BUN 17 Creatinine 0.37 L Estimated GFR Greater than 89 Random Glucose 73 L Calcium 9.1 Phosphorus 3.2 Magnesium 1.8 Imaging: ITS Impressions Chest CT 01/28/18 18:20 CONCLUSION: Extensive bilateral airspace disease Venous Doppler Study 02/07/18 13:15 CONCLUSION: The study is negative for bilateral lower extremity deep venous thrombosis. Aorta w/Runoff CTA 02/10/18 00:00 CONCLUSION: 1. Negative CTA. 2. Bibasilar areas of consolidation or atelectasis being worse in the right. Chest X-Ray 02/12/18 00:00 CONCLUSION: Minimal improvement, persistent airspace disease remains on the right. Abdomen X-Ray 02/12/18 08:51 CONCLUSION: Scattered stool with minimal scattered loops of large and small bowel nonspecific fashion. This has more the appearance of constipation. Shoulder X-Ray 02/13/18 13:00 CONCLUSION: Unremarkable study. Physical Exam: GENERAL: Awake and alert. No acute distress. HEENT: Extraocular movements grossly intact. Pupils reactive to light. No icterus. NECK: No adenopathy or swelling. LUNGS: Slight rhonchi at the bases. Breath sounds are otherwise clear. HEART: Normal S1 and S2, without audible murmurs, rubs, or gallops. ABDOMEN: Decreased bowel sounds. Soft, nontender. No palpable mass. EXTREMITIES: No clubbing. No cyanosis, trace edema. The right great toe has erythema at the tuft mostly towards the inner plantar aspect and towards the nailbed. There is also erythema along the base of the nailbed. The nail appears intact. Decreased sensation over the area of redness/purpuric discoloration. SKIN: No rash. warm and moist. NEUROLOGIC: Nonfocal. PSYCHIATRIC: Calm and cooperative. Lines without evidence of infection. Assessment and Plan - Plan IMPRESSION: 1. Bilateral pneumonia. MRSA. Improved. 2. Bacteremia. Staph aureus. MSSA. 3. Hypoxia. 4. Acute respiratory failure. Extubated Respiratory status improved after she required high FiO2 yesterday. 5. Elevated liver function tests. Improved. 6. Leukocytosis. WBCs no low. Lately count also decreased. 7. ALLERGY TO SULFA. 8. Right great toe infection. Questionable cellulitis versus osteo versus ischemia. Appears stable. RECOMMENDATIONS: 1. Continue cefuroxime 2. Monitor culture of the right great toe. 3. Obtain Xray of the right great toe to rule out osteomyelitis. 4. Bactroban ointment to the right great toe. 5. Monitor clinical status. 6. Consider podiatry evaluation of the r. great toe.
--- NOTE | 2018-02-16 18:04 | XR ---
EXAM DATE: 02/16/2018 6:00 PM EST AGE/SEX: 32 years / Female INDICATIONS: Pain. CLINICAL DATA: This is the patient's subsequent encounter. Patient reports that signs and symptoms h ave been present for 1 month and indicates a pain score of 3/10. MEDICAL/SURGICAL HISTORY: . Pneumonia. Sepsis. respiratory failure. Anxiety. Mood disorder. No ne. COMPARISON: No prior exams available for comparison. FINDINGS: No fracture, subluxation or bone destruction seen of the right foot. There does appear to be some sof t tissue swelling of the great toe. No radiopaque foreign body. Patient has a type II accessory navicular. CONCLUSION: 1. No acute bony abnormalities are demonstrated. 2. Nonspecific soft tissue swelling of the great toe. 3. Anatomic variant type II accessory navicular. Electronically signed by: Lv Don MD Board Certified Radiologist 02/16/2018 6:03 PM EST
[2018-02-16] MEDS: Acetaminophen 325 MG Tablet PO PRN (20:55)
[2018-02-16] MEDS: Topiramate 25 MG Tablet PO SCH (20:56)
[2018-02-16] MEDS: Enoxaparin Inj 40 MG/0.4 ML Syringe SQ SCH (21:02)
--- NOTE | 2018-02-16 21:55 | P.PNPOD ---
Subjective Interval history: Right hallux numbness No pain. Physical Exam Vital signs: Vital Signs 02/15/18 23:59 02/16/18 00:00 02/16/18 08:00 Temperature 98.1 F 98.2 F Pulse Rate 107 H 91 H Respiratory Rate 20 17 Blood Pressure 108/55 L 114/71 Pulse Oximetry 99 96 98 02/16/18 12:00 02/16/18 16:00 02/16/18 20:00 Temperature 97.8 F 97.9 F 97.3 F L Pulse Rate 123 H 93 H 87 Respiratory Rate 19 18 18 Blood Pressure 116/59 L 107/60 108/61 Pulse Oximetry 94 L 99 95 Intake & Output 02/16/18 02/16/18 02/17/18 06:59 18:59 06:59 Intake Total 440 / 440 Balance 440 / 440 Weight 49.9 kg Intake: Oral 440 / 440 Other: # Voids 1 4 Date of Last Bowel Movement 02/16/18 # Bowel Movements 1 Narrative: Right hallux contusion on the medial aspect, the nail plate is mildly lytic. No drainage and no acute soi. NVS intact. Medications and Allergies Active Medications: Active Medications Acetaminophen (Tylenol) 650 mg PO Q6H PRN PRN Reason: PAIN SCALE 1 - 4 Last Admin: 02/16/18 20:55 Dose: 650 mg Hydrocodone Bitart/Acetaminophen (Windom 7.5/325) 1 tab PO Q6H PRN PRN Reason: pain 5-10 Last Admin: 02/16/18 15:03 Dose: 1 tab Albuterol (Duoneb Neb (Prn)) 1 ampul NEB Q2HR NEB PRN PRN Reason: DYSPNEA Last Admin: 02/07/18 21:16 Dose: 1 ampul Albuterol (Albuterol Neb (Prn)) 2.5 mg NEB Q2HR NEB PRN PRN Reason: WHEEZING Last Admin: 02/07/18 17:51 Dose: 2.5 mg Aspirin (Ecotrin) 81 mg PO DAILY [facility] Last Admin: 02/16/18 08:12 Dose: 81 mg Cefuroxime Axetil (Ceftin) 500 mg PO Q12H [facility] Last Admin: 02/16/18 11:44 Dose: 500 mg Chlorhexidine Gluconate (Peridex 0.12% Oral Kit) 15 ml OROPHARYNG BID@0800, 2000 [facility] Last Admin: 02/16/18 20:57 Dose: Not Given Enoxaparin Sodium (Lovenox Inj) 40 mg SQ Q24H [facility] Last Admin: 02/16/18 21:02 Dose: 40 mg Famotidine (Pepcid) 20 mg PO BID [facility] Last Admin: 02/16/18 20:56 Dose: 20 mg Guaifenesin (Mucinex Er) 600 mg PO BID [facility] Last Admin: 02/16/18 20:56 Dose: 600 mg Lactulose (Lactulose Liq) 30 ml PO BID [facility] Last Admin: 02/16/18 20:57 Dose: Not Given Lorazepam (Ativan Inj) 0.25 mg IV.PUSH Q4H PRN PRN Reason: AGITATION OR ANXIETY Last Admin: 02/15/18 21:59 Dose: 0.25 mg Miscellaneous Medication () 1 each OROPHARYNG 0000,0400,1200,1600 [facility] Last Admin: 02/16/18 15:15 Dose: Not Given Mupirocin (Bactroban 2% Oint) 1 applicatio TOPICAL BID [facility] Last Admin: 02/16/18 20:55 Dose: 1 applicatio Paroxetine HCl (Paxil) 20 mg PO DAILY [facility] Potassium Chloride (K-Dur) 20 meq PO BID [facility] Last Admin: 02/16/18 20:56 Dose: 20 meq Senna/Docusate Sodium (Mona-Colace) 1 tab PO BID [facility] Last Admin: 02/16/18 20:57 Dose: 1 tab Sodium Biphosphate/Sodium Phosphate (Fleets Enema (Adult)) 118 ml RECTAL UNSCH PRN PRN Reason: CONSTIPATION Sodium Chloride (Ns Flush) 2 ml IV.FLUSH BID [facility] Last Admin: 02/16/18 20:57 Dose: 2 ml Sodium Chloride (Ns Flush) 2 ml IV.FLUSH PRN PRN PRN Reason: FLUSH AFTER USING IV ACCESS Topiramate (Topamax) 50 mg PO BID [facility] Last Admin: 02/16/18 20:56 Dose: 50 mg Allergies Allergy/AdvReac Type Severity Reaction Status Date / Time Sulfa (Sulfonamide Allergy Intermediate Verified 05/14/17 22:25 Antibiotics) Home Medications Medication Instructions Recorded Confirmed Type No Known Home Medications 01/28/18 01/28/18 History Results - Labs CBC & Chem 7: 02/15/18 05:13 02/15/18 05:13 Microbiology 02/15/18 11:45 Wound - Toe Gram Stain - Final 02/15/18 11:45 Wound - Toe Wound Culture - Preliminary No growth in 24 hours - Imaging Impressions Toe X-Ray 02/16/18 00:00 CONCLUSION: 1. No acute bony abnormalities are demonstrated. 2. Nonspecific soft tissue swelling of the great toe. 3. Anatomic variant type II accessory navicular. Assessment and Plan - Assessment (1) Skin bulla Code(s): R23.8 - Other skin changes Status: Acute - Plan Right hallux contusion with no abnormal toe findings on 02/16/18 right foot xray. The nail plate grossly intact and no soi and no plans to avulse at this point. The contusion should resolve over time. Please reconsult with any acute changes.
[2018-02-17] MEDS: Oral Hygiene Kit OROPHARYNG SCH ×4 (00:18→16:35)
[2018-02-17] MEDS: Chlorhexidine 0.12% Oral Kit 15 ML UDC OROPHARYNG SCH ×2 (07:34→20:50)
--- NOTE | 2018-02-17 07:59 | P.PNFP ---
Subjective Interval history: Slept well, denies Cp, SOB, NV or abdominal pain. Complains of pin and needs to LUE Voices her upper body is weak. Results - Labs Result diagrams: 02/15/18 05:13 02/15/18 05:13 - Imaging Impressions Toe X-Ray 02/16/18 00:00 CONCLUSION: 1. No acute bony abnormalities are demonstrated. 2. Nonspecific soft tissue swelling of the great toe. 3. Anatomic variant type II accessory navicular. Physical Exam Vital signs: Vital Signs 02/16/18 08:00 02/16/18 12:00 02/16/18 16:00 Temperature 98.2 F 97.8 F 97.9 F Pulse Rate 91 H 123 H 93 H Respiratory Rate 17 19 18 Blood Pressure 114/71 116/59 L 107/60 Pulse Oximetry 98 94 L 99 02/16/18 20:00 02/17/18 04:38 Temperature 97.3 F L Pulse Rate 87 Respiratory Rate 18 18 Blood Pressure 108/61 Pulse Oximetry 95 Intake & Output 02/16/18 02/17/18 02/17/18 18:59 06:59 18:59 Intake Total 440 / 440 720 / 720 Balance 440 / 440 720 / 720 Weight 51.5 kg Intake: Oral 440 / 440 720 / 720 Other: # Voids 4 3 Date of Last Bowel Movement 02/16/18 # Bowel Movements 1 - Constitutional no acute distress - Routine HEENT Exam Eye: Present: PERRL ENT: Present: mucous membranes moist - Routine Neck Exam Present: supple - Routine Respiratory Exam Present: CTA bilaterally - Routine Cardiovascular Exam Present: S1, S2 - Routine Abdominal Exam Present: soft, normoactive bowel sounds - Routine Extremities Exam Present: pulses intact - Routine Skin Exam Present: erythema, warm - Routine Neurological Exam Present: alert, oriented X3, moving all extremities - Routine Psychiatric Exam Present: cooperative - Urinary Catheter Management Indwelling Urethral Catheter Cath placed during this visit: yes Urethral indwelling: No Reason for continuing: Other continuation reason Insertion date: 01/29/18 Insertion time: 07:15 Straight Cath placed during this visit: yes, but has since been removed by the nurse Reason for continuing: Not indwelling catheter Insertion date: 02/12/18 Insertion time: 06:15 Removal date: 02/12/18 Removal time: 06:20 Assessment and Plan - Assessment (1) Bilateral pneumonia Code(s): J18.9 - Pneumonia, unspecified organism Status: Acute Plan: stable Zyvox dc started on Ceftin ID following (2) Sepsis Code(s): A41.9 - Sepsis, unspecified organism Status: Acute Plan: Severe sepsis R/t pneumonia- resolved ID following Sputum culture-MRSA Blood cultures Negative (3) Acute respiratory failure with hypoxia and hypercarbia Code(s): J96.01 - Acute respiratory failure with hypoxia; J96.02 - Acute respiratory failure with hypercapnia Status: Resolved Plan: Required mechanical ventilation Room air, sat's maintained, Cont with bronchodilators, oxygen support (4) Anxiety Code(s): F41.9 - Anxiety disorder, unspecified Status: Acute Plan: cont Ativan Restart home medication Paxil (5) Mood disorder Code(s): F39 - Unspecified mood [affective] disorder Status: Acute Plan: Restart home medication gabapentin (6) Migraines Code(s): G43.909 - Migraine, unspecified, not intractable, without status migrainosus Status: Acute Plan: Restart home medication Topamax - Assessment and Plan 02/16/18- will restart home medications, PT activity, she is weak rehab recommended She has no payor source. 02/17/17- Seen this am had good night. Neurology consulted on 02/15 for LUE paraesthesia. Cont to work with PT/OT. Vss afebrile. (1) Bilateral pneumonia Qualifiers: Pneumonia type: due to unspecified organism Lung location: unspecified part of lung Qualified Code(s): J18.9 - Pneumonia, unspecified organism (2) Sepsis Qualifiers: Sepsis type: sepsis due to unspecified organism Qualified Code(s): A41.9 - Sepsis, unspecified organism
[2018-02-17] MEDS: guaiFENesin 600 MG ER Tablet PO SCH ×2 (09:10→20:50)
[2018-02-17] MEDS: Senna/Docusate Sodium 8.6/50 MG Tablet PO SCH ×2 (09:10→20:50)
[2018-02-17] MEDS: Famotidine 20 MG Tablet PO SCH ×2 (09:11→20:50)
[2018-02-17] MEDS: Gabapentin 100 MG Capsule PO SCH ×3 (09:11→17:29)
[2018-02-17] MEDS: Topiramate 25 MG Tablet PO SCH ×2 (09:11→20:49)
[2018-02-17] MEDS: Sodium Chloride 0.9% 2 ML Flush BID IV.FLUSH SCH ×2 (09:12→20:50)
[2018-02-17] MEDS: Acetaminophen 325 MG Tablet PO PRN (09:36)
[2018-02-17] MEDS: Enoxaparin Inj 40 MG/0.4 ML Syringe SQ SCH (21:00)
--- NOTE | 2018-02-17 22:54 | MB ---
cc: Zackary Chacon MD, PhD DATE: 02/17/2018 REASON FOR CONSULTATION: Weakness. HISTORY OF PRESENT ILLNESS: This is a pleasant 32-year-old female who had a recent pneumonia and sepsis. She relates for the past several days, weakness on the left side involving the left arm and left leg with difficulty raising the limbs, as well as numbness. NEUROLOGIC EXAMINATION: VITAL SIGNS: Blood pressure is 112/62, pulse 95, respirations 18, temperature 97 degrees. NEUROLOGIC: Higher cortical functions are normal. Cranial nerves intact. Motor: She has mild weakness, left arm and left leg, rated at 4/5, with normal strength on the right. Reflexes are 2+ symmetric. There is no Babinski sign present. Sensory exam is subjectively diminished in the left arm and left leg. IMPRESSION: Left-sided weakness. RECOMMENDATIONS: I would like to proceed with an MRI of the brain. Zackary Chacon MD, PhD GERMAIN/neftaly , 10:29 PM , 10:33 PM
[2018-02-18] MEDS: Oral Hygiene Kit OROPHARYNG SCH ×4 (00:17→18:25)
[2018-02-18] MEDS ORDERED: Gadobutrol PF 2 MMOL/2 ML Vial (for RAD) IV.SIG ONE ×2 (08:37→17:59)
--- NOTE | 2018-02-18 08:44 | MR ---
EXAM DATE: 02/18/2018 8:38 AM EST AGE/SEX: 32 years / Female INDICATIONS: Left sided weakness. CLINICAL DATA: This is the patient's subsequent encounter. Patient reports that signs and symptoms h ave been present for 2 weeks and indicates a pain score of 0/10. MEDICAL/SURGICAL HISTORY: Hepatitis C. None. COMPARISON: No prior exams available for comparison. TECHNIQUE: Multiplanar, multisequence examination of the brain was performed without and with 5 ml Ga davist (gadobutrol) contrast as a single exam dose. FINDINGS: Cerebrum: The ventricles are normal for age. No evidence of midline shift, mass lesion, hemorrhage or acute infarction. No extraaxial fluid collections are seen. The pituitary gland and suprasellar cistern are normal in configuration. White Matter: No significant signal abnormalities are seen in the white matter. Posterior Fossa: The cerebellum and brainstem are intact. The 4th ventricle is midline. The cerebel lopontine angle is unremarkable. The cerebellar tonsils are normal in position. Diffusion Imaging: No focal areas of restricted diffusion are seen. No evidence of acute infarction . Extracranial: The visualized portions of the orbits and paranasal sinuses are unremarkable. Post Contrast: No abnormal areas of parenchymal or dural enhancement. No evidence of blood-brain ba rrier breakdown. CONCLUSION: 1. No acute intracranial abnormality Electronically signed by: Eduardo Ray MD Board Certified Radiologist 02/18/2018 8:43 AM EST
[2018-02-18] MEDS: Senna/Docusate Sodium 8.6/50 MG Tablet PO SCH ×2 (09:16→21:37)
[2018-02-18] MEDS: guaiFENesin 600 MG ER Tablet PO SCH ×2 (09:16→21:37)
[2018-02-18] MEDS: Topiramate 25 MG Tablet PO SCH ×2 (09:16→21:37)
[2018-02-18] MEDS: Famotidine 20 MG Tablet PO SCH ×2 (09:16→21:38)
[2018-02-18] MEDS: Gabapentin 100 MG Capsule PO SCH ×3 (09:17→18:41)
[2018-02-18] MEDS: Chlorhexidine 0.12% Oral Kit 15 ML UDC OROPHARYNG SCH ×2 (09:19→21:38)
[2018-02-18] MEDS: Sodium Chloride 0.9% 2 ML Flush BID IV.FLUSH SCH ×2 (09:20→21:38)
--- NOTE | 2018-02-18 10:33 | P.PNFP ---
Subjective Interval history: Seen this am, she denies Cp, SOB Slept well, voices neuro came in last night Mri this am. Results - Labs Result diagrams: 02/15/18 05:13 02/15/18 05:13 - Imaging Impressions Head MRI 02/18/18 00:00 CONCLUSION: 1. No acute intracranial abnormality Physical Exam Vital signs: Vital Signs 02/17/18 12:00 02/17/18 16:00 02/17/18 20:00 Temperature 97.7 F 97.7 F 98.2 F Pulse Rate 89 95 H 116 H Respiratory Rate 17 18 18 Blood Pressure 119/70 112/62 130/83 Pulse Oximetry 99 97 95 02/18/18 00:00 02/18/18 04:28 02/18/18 07:32 Temperature 97.3 F L Pulse Rate 95 H Respiratory Rate 18 18 Blood Pressure 106/59 L Pulse Oximetry 96 96 02/18/18 08:00 02/18/18 09:21 Temperature 97.6 F Pulse Rate 93 H Respiratory Rate 19 16 Blood Pressure 115/72 Pulse Oximetry 96 Intake & Output 02/17/18 02/18/18 02/18/18 18:59 06:59 18:59 Intake Total 660 / 660 474 / 474 Balance 660 / 660 474 / 474 Weight 51.7 kg Intake: Oral 660 / 660 474 / 474 Other: # Voids 5 3 Date of Last Bowel Movement 02/16/18 # Bowel Movements 1 - Constitutional no acute distress - Routine HEENT Exam Eye: Present: PERRL ENT: Present: mucous membranes moist - Routine Neck Exam Present: supple - Routine Respiratory Exam Present: CTA bilaterally - Routine Cardiovascular Exam Present: S1, S2 - Routine Abdominal Exam Present: soft, normoactive bowel sounds - Routine Extremities Exam Present: pulses intact - Routine Skin Exam Present: dry, warm Comments: left side paraesthesia and weakness - Routine Neurological Exam Present: alert, oriented X3 - Routine Psychiatric Exam Present: cooperative - Urinary Catheter Management Indwelling Urethral Catheter Cath placed during this visit: yes Urethral indwelling: No Reason for continuing: Other continuation reason Insertion date: 01/29/18 Insertion time: 07:15 Straight Cath placed during this visit: yes, but has since been removed by the nurse Reason for continuing: Not indwelling catheter Insertion date: 02/12/18 Insertion time: 06:15 Removal date: 02/12/18 Removal time: 06:20 Assessment and Plan - Assessment (1) Bilateral pneumonia Code(s): J18.9 - Pneumonia, unspecified organism Status: Acute Plan: stable Zyvox dc started on Ceftin ID following (2) Sepsis Code(s): A41.9 - Sepsis, unspecified organism Status: Acute Plan: Severe sepsis R/t pneumonia- resolved ID following Sputum culture-MRSA Blood cultures Negative (3) Acute respiratory failure with hypoxia and hypercarbia Code(s): J96.01 - Acute respiratory failure with hypoxia; J96.02 - Acute respiratory failure with hypercapnia Status: Resolved Plan: Required mechanical ventilation Room air, sat's maintained, Cont with bronchodilators, oxygen support (4) Anxiety Code(s): F41.9 - Anxiety disorder, unspecified Status: Acute Plan: cont Ativan Restart home medication Paxil (5) Mood disorder Code(s): F39 - Unspecified mood [affective] disorder Status: Acute Plan: Restart home medication gabapentin (6) Migraines Code(s): G43.909 - Migraine, unspecified, not intractable, without status migrainosus Status: Acute Plan: Restart home medication Topamax - Assessment and Plan 02/16/18- will restart home medications, PT activity, she is weak rehab recommended She has no payor source. 02/17/17- Seen this am had good night. Neurology consulted on 02/15 for LUE paraesthesia. Cont to work with PT/OT. Vss afebrile. 02/18/17- Seen this am she voices that neuro did see her last night ordered MRI , done this am negative. She still had LUE weakness, feels she is getting stronger but slow, She is being seen by Therapy. Will dc when when cleared by neuro (1) Bilateral pneumonia Qualifiers: Pneumonia type: due to unspecified organism Lung location: unspecified part of lung Qualified Code(s): J18.9 - Pneumonia, unspecified organism (2) Sepsis Qualifiers: Sepsis type: sepsis due to unspecified organism Qualified Code(s): A41.9 - Sepsis, unspecified organism
--- NOTE | 2018-02-18 11:41 | P.PNID ---
Subjective Remarks: Patient is awake and alert. Notes that she developed numbness and weakness on her left upper and lower extremities. Continues to have numbness of the right great toe. No cough or sputum production. Afebrile Wound culture from the right great toe has no growth. Repeat blood culture has no growth. 32-year-old white female who presented to the emergency department yesterday evening with respiratory symptoms. Emergency department report stated that the patient developed symptoms about a week ago consisting of body aches, nausea, vomiting, diarrhea, fever, chills, and sweats. She was seen at an urgent care center about a week ago and was diagnosed with flu. She subsequently developed a sore throat and pain on swallowing and loss of the voice as well as nonproductive cough. Her energy level is also reported to be very low. The patient was seen in the emergency department and temperature was 98.6, heart rate was elevated at 122, and white count was elevated at 20.8. She was put on nonrebreather mask and oxygen saturation was noted to be between 88% and 92%. The patient was subsequently intubated. Antibiotics: Cefuroxime Past Medical History: PAST MEDICAL HISTORY: Reportedly negative. The patient has been evaluated for psychiatric adjustment disorder. Allergies/Adverse Reactions: Allergies Sulfa (Sulfonamide Antibiotics) Allergy (Intermediate, Verified 05/14/17 22:25) PT STATES INCREASES HER TEMP Objective Vital Signs 02/17/18 12:00 02/17/18 16:00 02/17/18 20:00 Temperature 97.7 F 97.7 F 98.2 F Pulse Rate 89 95 H 116 H Respiratory Rate 17 18 18 Blood Pressure 119/70 112/62 130/83 Pulse Oximetry 99 97 95 02/18/18 00:00 02/18/18 04:28 02/18/18 07:32 Temperature 97.3 F L Pulse Rate 95 H Respiratory Rate 18 18 Blood Pressure 106/59 L Pulse Oximetry 96 96 02/18/18 08:00 02/18/18 09:21 Temperature 97.6 F Pulse Rate 93 H Respiratory Rate 19 16 Blood Pressure 115/72 Pulse Oximetry 96 Intake & Output 02/17/18 02/18/18 02/18/18 18:59 06:59 18:59 Intake Total 660 / 660 474 / 474 Balance 660 / 660 474 / 474 Weight 51.7 kg Intake: Oral 660 / 660 474 / 474 Other: # Voids 5 3 Date of Last Bowel Movement 02/16/18 # Bowel Movements 1 02/15/18 11:45 Wound - Toe Gram Stain - Final 02/15/18 11:45 Wound - Toe Wound Culture - Final No growth in 72 hours (aerobically and anaerobically ) Imaging: ITS Impressions Chest CT 01/28/18 18:20 CONCLUSION: Extensive bilateral airspace disease Venous Doppler Study 02/07/18 13:15 CONCLUSION: The study is negative for bilateral lower extremity deep venous thrombosis. Aorta w/Runoff CTA 02/10/18 00:00 CONCLUSION: 1. Negative CTA. 2. Bibasilar areas of consolidation or atelectasis being worse in the right. Chest X-Ray 02/12/18 00:00 CONCLUSION: Minimal improvement, persistent airspace disease remains on the right. Abdomen X-Ray 02/12/18 08:51 CONCLUSION: Scattered stool with minimal scattered loops of large and small bowel nonspecific fashion. This has more the appearance of constipation. Shoulder X-Ray 02/13/18 13:00 CONCLUSION: Unremarkable study. Toe X-Ray 02/16/18 00:00 CONCLUSION: 1. No acute bony abnormalities are demonstrated. 2. Nonspecific soft tissue swelling of the great toe. 3. Anatomic variant type II accessory navicular. Head MRI 02/18/18 00:00 CONCLUSION: 1. No acute intracranial abnormality Physical Exam: GENERAL: Awake and alert. No acute distress. Looks a little drowsy. HEENT: Extraocular movements grossly intact. Pupils reactive to light. No icterus. NECK: No adenopathy or swelling. LUNGS: Coarse breath sounds. HEART: Normal S1 and S2, without audible murmurs, rubs, or gallops. ABDOMEN: Decreased bowel sounds. Soft, nontender. No palpable mass. EXTREMITIES: No clubbing. No cyanosis, trace edema. The right great toe nail is at the base and there is serous drainage along the base of the nailbed. Erythema present at the right great toe. SKIN: No rash. warm and moist. NEUROLOGIC: Nonfocal PSYCHIATRIC: Calm. Lines without evidence of infection. Assessment and Plan - Plan IMPRESSION: 1. Bilateral pneumonia. MRSA. 2. Bacteremia. Staph aureus. MSSA. 3. Hypoxia. Improved 4. Acute respiratory failure. Extubated 5. Elevated liver function tests. Improved. 6. Leukocytosis. Resolved. 7. ALLERGY TO SULFA. 8. Right great to avulsion. RECOMMENDATIONS: 1. Continue Cefuroxime. 2. Continue Bactroban ointment to the left great toe. 3. Reconsult podiatry to evaluate the right great toe.
--- NOTE | 2018-02-18 18:54 | MR ---
EXAM DATE: 02/18/2018 6:14 PM EST AGE/SEX: 32 years / Female INDICATIONS: . Left sided numbness. CLINICAL DATA: This is the patient's subsequent encounter. Patient reports that signs and symptoms h ave been present for 3 weeks and indicates a pain score of 0/10. MEDICAL/SURGICAL HISTORY: Hepatitis C. None. COMPARISON: No prior exams available for comparison. TECHNIQUE: Multiplanar, multisequence MRI examination of the cervical spine was performed without an d with 5 ml Gadavist (gadobutrol) contrast as a single exam dose. FINDINGS: There is a mild disc protrusion at C4-5, slightly worse on the right side but without significant can al or foraminal stenosis. No other discrete disc protrusions identified in the cervical spine. Normal alignment. No fracture or spondylolisthesis. No cord signal abnormality. CONCLUSION: 1. Broad-based mild central to right paracentral disc protrusion at C4-5 without significant canal o r foraminal stenosis. Remainder of cervical spine unremarkable. Normal alignment. No cord impingement or cord signal abnormality. Electronically signed by: Leonel Vitale MD Board Certified Radiologist 02/18/2018 6:53 PM EST
--- NOTE | 2018-02-18 19:29 | P.CON ---
History of Present Illness Service: Foot and Ankle Surgery/Podiatry Consult date: 02/18/18 Reason for Consult: Right hallux discoloration Primary Care Provider: Con Guerrero DO Chief Complaint: Shortness of breath History of Present Illness: Podiatry consulted for this 32-year-old female is being treated for MRSA pneumonia for right great toe ischemia. Patient denies any nausea vomiting fevers or chills at this time however she is concerned about the progression of the discoloration to her right hallux. Patient does admit to IV drug use which she states she has not done in years however she does report cocaine use in the past month. Review of Systems Constitutional: Reports body ache(s), Reports fatigue, Reports weakness, Denies chills, Denies fever(s) Ears, Nose, Mouth, and Throat: Reports poor balance Cardiovascular: Denies chest pain, Denies shortness of breath Respiratory: Reports cough Musculoskeletal: Reports abnormal walking, Reports numbness, Reports tingling Neurologic: Reports abnormal movements, Reports abnormal speech, Reports abnormal walking PMFSH - History History Provided By: Patient - Medical History Medical History: Medical History (Last Reviewed 02/18/18 @ 19:23 by Ria Landaverde DPM) History of MRSA infection Onset Date: ~01/29/18 Patient denies medical problems - Surgical History Surgical History: Surgical History (Last Reviewed 02/18/18 @ 19:23 by Ria Landaverde DPM) No history of previous surgery - Tobacco History Tobacco Use In Past 30 Days: Yes Smoking Status: Current every day smoker Tobacco Type: Cigarettes - Alcohol History How Often Do You Have a Drink Containing Alcohol: Never - Substance Use History Substance History: No History of Abuse - Travel History Recent Travel in the [facility] Within the Last 8 Weeks: No Recent Travel Out of the Country Within the Last 8 Weeks: No - Immunization History Tetanus Immunization: Unsure Hx Influenza Vaccine This Season: No Medications and Allergies Active Medications: Active Medications Acetaminophen (Tylenol) 650 mg PO Q6H PRN PRN Reason: PAIN SCALE 1 - 4 Last Admin: 02/17/18 09:36 Dose: 650 mg Hydrocodone Bitart/Acetaminophen ([place] 7.5/325) 1 tab PO Q6H PRN PRN Reason: pain 5-10 Last Admin: 02/18/18 14:52 Dose: 1 tab Albuterol (Duoneb Neb (Prn)) 1 ampul NEB Q2HR NEB PRN PRN Reason: DYSPNEA Last Admin: 02/07/18 21:16 Dose: 1 ampul Albuterol (Albuterol Neb (Prn)) 2.5 mg NEB Q2HR NEB PRN PRN Reason: WHEEZING Last Admin: 02/07/18 17:51 Dose: 2.5 mg Aspirin (Ecotrin) 81 mg PO DAILY [facility] Last Admin: 02/18/18 09:17 Dose: 81 mg Cefuroxime Axetil (Ceftin) 500 mg PO Q12H [facility] Last Admin: 02/18/18 12:26 Dose: 500 mg Chlorhexidine Gluconate (Peridex 0.12% Oral Kit) 15 ml OROPHARYNG BID@0800, 2000 [facility] Last Admin: 02/18/18 09:19 Dose: Not Given Enoxaparin Sodium (Lovenox Inj) 40 mg SQ Q24H [facility] Last Admin: 02/17/18 21:00 Dose: 40 mg Famotidine (Pepcid) 20 mg PO BID [facility] Last Admin: 02/18/18 09:16 Dose: 20 mg Gabapentin (Neurontin) 100 mg PO TID [facility] Last Admin: 02/18/18 18:41 Dose: 100 mg Guaifenesin (Mucinex Er) 600 mg PO BID [facility] Last Admin: 02/18/18 09:16 Dose: 600 mg Lactulose (Lactulose Liq) 30 ml PO BID [facility] Last Admin: 02/18/18 09:20 Dose: Not Given Lorazepam (Ativan Inj) 0.25 mg IV.PUSH Q4H PRN PRN Reason: AGITATION OR ANXIETY Last Admin: 02/18/18 17:04 Dose: 0.25 mg Miscellaneous Medication () 1 each OROPHARYNG 0000,0400,1200,1600 [facility] Last Admin: 02/18/18 18:25 Dose: Not Given Mupirocin (Bactroban 2% Oint) 1 applicatio TOPICAL BID [facility] Last Admin: 02/18/18 09:19 Dose: 1 applicatio Paroxetine HCl (Paxil) 20 mg PO DAILY [facility] Last Admin: 02/18/18 09:17 Dose: 20 mg Potassium Chloride (K-Dur) 20 meq PO BID [facility] Last Admin: 02/18/18 09:17 Dose: 20 meq Senna/Docusate Sodium (Mona-Colace) 1 tab PO BID [facility] Last Admin: 02/18/18 09:16 Dose: 1 tab Sodium Biphosphate/Sodium Phosphate (Fleets Enema (Adult)) 118 ml RECTAL UNSCH PRN PRN Reason: CONSTIPATION Sodium Chloride (Ns Flush) 2 ml IV.FLUSH BID [facility] Last Admin: 02/18/18 09:20 Dose: 2 ml Sodium Chloride (Ns Flush) 2 ml IV.FLUSH PRN PRN PRN Reason: FLUSH AFTER USING IV ACCESS Topiramate (Topamax) 50 mg PO BID [facility] Last Admin: 02/18/18 09:16 Dose: 50 mg Allergies Allergy/AdvReac Type Severity Reaction Status Date / Time Sulfa (Sulfonamide Allergy Intermediate Verified 05/14/17 22:25 Antibiotics) Home Medications Medication Instructions Recorded Confirmed Type No Known Home Medications 01/28/18 01/28/18 History Physical Exam Vital signs: Vital Signs 02/17/18 20:00 02/18/18 00:00 02/18/18 04:28 Temperature 98.2 F 97.3 F L Pulse Rate 116 H 95 H Respiratory Rate 18 18 18 Blood Pressure 130/83 106/59 L Pulse Oximetry 95 96 02/18/18 07:32 02/18/18 08:00 02/18/18 09:21 Temperature 97.6 F Pulse Rate 93 H Respiratory Rate 19 16 Blood Pressure 115/72 Pulse Oximetry 96 96 02/18/18 12:00 02/18/18 16:00 02/18/18 16:38 Temperature 98.2 F 98.3 F Pulse Rate 110 H 108 H Respiratory Rate 17 20 18 Blood Pressure 142/90 H 142/84 H Pulse Oximetry 97 99 Intake & Output 02/18/18 02/18/18 02/19/18 06:59 18:59 06:59 Intake Total 474 / 474 700 / 700 Balance 474 / 474 700 / 700 Weight 51.7 kg Intake: Oral 474 / 474 700 / 700 Other: # Voids 3 4 # Bowel Movements 1 Narrative: GENERAL: This is a well-nourished, well-developed patient, in no apparent distress. SKIN: Discoloration and purpura noted to right hallux HEAD: Atraumatic. EYES: Pupils equal round and reactive. ENT: Airway patent. NECK: Trachea midline. RESPIRATORY: Nonlabored breathing. MUSCULOSKELETAL:. Negative Homans sign bilaterally. NEUROLOGICAL: Awake and alert. Normal speech. Lower extremity physical exam: Vascular: Dorsalis pedis 2/4, posterior tibial 2/4. Capillary refill time within normal limits to digits X5 bilateral foot. Edema not present bilateral lower extremity Neuro: Gross sensation intact to bilateral lower extremity. Pinpoint sensation decreased right hallux. No hyperalgesia noted to bilateral lower extremity Dermatology: Purpura noted to right hallux, possible early signs of ischemia noted to right hallux. No local signs of infection noted. Musculoskeletal: No gross osseous deformities noted - Urinary Catheter Management Indwelling Urethral Catheter Cath placed during this visit: yes Urethral indwelling: No Reason for continuing: Other continuation reason Insertion date: 01/29/18 Insertion time: 07:15 Straight Cath placed during this visit: yes, but has since been removed by the nurse Reason for continuing: Not indwelling catheter Insertion date: 02/12/18 Insertion time: 06:15 Removal date: 02/12/18 Removal time: 06:20 Results - Labs CBC & Chem 7: 02/15/18 05:13 02/15/18 05:13 - Imaging Impressions Cervical Spine MRI 02/18/18 00:00 CONCLUSION: 1. Broad-based mild central to right paracentral disc protrusion at C4-5 without significant canal or foraminal stenosis. Remainder of cervical spine unremarkable. Normal alignment. No cord impingement or cord signal abnormality. Head MRI 02/18/18 00:00 CONCLUSION: 1. No acute intracranial abnormality Assessment and Plan - Assessment (1) Skin bulla Code(s): R23.8 - Other skin changes Status: Acute - Plan 32-year-old female with right hallux purpura possible early signs of ischemia Patient examined evaluated all questions answered No clinical signs of infection noted Do not suspect ingrown toenail Patient denies trauma Purpura noted with early signs of ischemia, could be secondary to cocaine use and possible vasculitis Recommending Nitropaste at this time Would consider vascular consult Will continue to monitor progression of discoloration No intervention planned at this time
[2018-02-18 20:05] LABS: Amorphous Sediment,Urine Rare /hpf; Bacteria,Urine Occasional /hpf; Bilirubin,Urine Negative (Negative); Clarity,Urine Cloudy (Clear); Color,Urine Yellow (Yellw/Straw); Glucose,Urine (UA) Negative (Negative); Leukocyte Esterase,Urine Trace (Negative); Nitrite,Urine Negative (Negative); Specific Gravity,Urine 1.016 (1.002-1.035); Squamous Epithelial Cell,Urine 2 /hpf (0-5)
[2018-02-18] MEDS: Enoxaparin Inj 40 MG/0.4 ML Syringe SQ SCH (21:37)
[2018-02-19] MEDS: Oral Hygiene Kit OROPHARYNG SCH ×4 (00:24→15:38)
[2018-02-19] MEDS: Chlorhexidine 0.12% Oral Kit 15 ML UDC OROPHARYNG SCH ×2 (08:02→21:11)
[2018-02-19] MEDS: Gabapentin 100 MG Capsule PO SCH ×3 (08:25→18:37)
[2018-02-19] MEDS: Senna/Docusate Sodium 8.6/50 MG Tablet PO SCH ×2 (08:25→22:39)
[2018-02-19] MEDS: Topiramate 25 MG Tablet PO SCH ×2 (08:25→22:39)
[2018-02-19] MEDS: guaiFENesin 600 MG ER Tablet PO SCH ×2 (08:25→22:39)
[2018-02-19] MEDS: Famotidine 20 MG Tablet PO SCH ×2 (08:25→22:39)
[2018-02-19] MEDS: Acetaminophen 325 MG Tablet PO PRN (08:26)
[2018-02-19] MEDS: Sodium Chloride 0.9% 2 ML Flush BID IV.FLUSH SCH ×2 (08:35→22:39)
--- NOTE | 2018-02-19 09:52 | P.PN ---
Subjective Interval history: ALERT NAD NO SOB AT REST Physical Exam Vital signs: Vital Signs 02/18/18 12:00 02/18/18 16:00 02/18/18 16:38 Temperature 98.2 F 98.3 F Pulse Rate 110 H 108 H Respiratory Rate 17 20 18 Blood Pressure 142/90 H 142/84 H Pulse Oximetry 97 99 02/18/18 20:00 02/19/18 00:00 Temperature 98.2 F 98.3 F Pulse Rate 121 H 113 H Respiratory Rate 18 18 Blood Pressure 120/72 129/60 Pulse Oximetry 97 95 Intake & Output 02/18/18 02/19/18 02/19/18 18:59 06:59 18:59 Intake Total 700 / 700 240 / 240 Balance 700 / 700 240 / 240 Weight 54.4 kg Intake: Oral 700 / 700 240 / 240 Other: # Voids 4 2 # Bowel Movements 1 Narrative: GENERAL: This is a well-nourished, well-developed patient, in no apparent distress. SKIN: Discoloration and purpura noted to right hallux HEAD: Atraumatic. EYES: Pupils equal round and reactive. ENT: Airway patent. NECK: Trachea midline. RESPIRATORY: Nonlabored breathing. MUSCULOSKELETAL:. Negative Homans sign bilaterally. NEUROLOGICAL: Awake and alert. Normal speech. Lower extremity physical exam: Vascular: Dorsalis pedis 2/4, posterior tibial 2/4. Capillary refill time within normal limits to digits X5 bilateral foot. Edema not present bilateral lower extremity Neuro: Gross sensation intact to bilateral lower extremity. Pinpoint sensation decreased right hallux. No hyperalgesia noted to bilateral lower extremity Dermatology: Purpura noted to right hallux, possible early signs of ischemia noted to right hallux. No local signs of infection noted. Musculoskeletal: No gross osseous deformities noted - Urinary Catheter Management Indwelling Urethral Catheter Cath placed during this visit: yes Urethral indwelling: No Reason for continuing: Other continuation reason Insertion date: 01/29/18 Insertion time: 07:15 Straight Cath placed during this visit: yes, but has since been removed by the nurse Reason for continuing: Not indwelling catheter Insertion date: 02/12/18 Insertion time: 06:15 Removal date: 02/12/18 Removal time: 06:20 Results - Labs CBC & Chem 7: 02/15/18 05:13 02/15/18 05:13 Laboratory Results - last 24 hr 02/18/18 19:30 Urine Color Yellow Urine Clarity Cloudy H Urine pH 7.0 Ur Specific [place] 1.016 Urine Protein Negative Urine Glucose (UA) Negative Urine Ketones Negative Urine Occult Blood Negative Urine Nitrate Negative Urine Bilirubin Negative Urine Urobilinogen Less than 2 Ur Leukocyte Esterase Trace H Urine RBC 1 Urine WBC 4 Ur Squamous Epith Cells 2 Amorphous Sediment Rare H Urine Bacteria Occasional H Ur Microscopic Review Not Reportable Microbiology 02/15/18 11:45 Wound - Toe Gram Stain - Final 02/15/18 11:45 Wound - Toe Wound Culture - Final No growth in 72 hours (aerobically and anaerobically ) - Imaging Impressions Cervical Spine MRI 02/18/18 00:00 CONCLUSION: 1. Broad-based mild central to right paracentral disc protrusion at C4-5 without significant canal or foraminal stenosis. Remainder of cervical spine unremarkable. Normal alignment. No cord impingement or cord signal abnormality. Assessment and Plan - Plan RESPIRATORY FAILURE, EXTUBATED PNEUMONIA, MRSA HEP C PLAN O2 NEEDED ANTIBX PER ID F/U CXRAY
--- NOTE | 2018-02-19 10:10 | P.PNFP ---
Subjective Interval history: She is without complaints today and remains afebrile in NAD. She denies SOB. Results - Labs Result diagrams: 02/15/18 05:13 02/15/18 05:13 Abnormal lab results 02/18/18 Range/Units 19:30 Urine Clarity Cloudy H (Clear) Ur Leukocyte Esterase Trace H (Negative) Amorphous Sediment Rare H (None) /hpf Urine Bacteria Occasional H (None) /hpf Urine 02/18/18 Range/Units 19:30 Urine Color Yellow (Yellw/Straw) Urine Clarity Cloudy H (Clear) Urine pH 7.0 (5.0-8.5) Ur Specific [place] 1.016 (1.002-1.035) Urine Protein Negative (Neg-Trace) mg/dL Urine Glucose (UA) Negative (Negative) mg/dL - Imaging Impressions Cervical Spine MRI 02/18/18 00:00 CONCLUSION: 1. Broad-based mild central to right paracentral disc protrusion at C4-5 without significant canal or foraminal stenosis. Remainder of cervical spine unremarkable. Normal alignment. No cord impingement or cord signal abnormality. Physical Exam Vital signs: Vital Signs 02/18/18 12:00 02/18/18 16:00 02/18/18 16:38 Temperature 98.2 F 98.3 F Pulse Rate 110 H 108 H Respiratory Rate 17 20 18 Blood Pressure 142/90 H 142/84 H Pulse Oximetry 97 99 02/18/18 20:00 02/19/18 00:00 Temperature 98.2 F 98.3 F Pulse Rate 121 H 113 H Respiratory Rate 18 18 Blood Pressure 120/72 129/60 Pulse Oximetry 97 95 Intake & Output 02/18/18 02/19/18 02/19/18 18:59 06:59 18:59 Intake Total 700 / 700 240 / 240 Balance 700 / 700 240 / 240 Weight 54.4 kg Intake: Oral 700 / 700 240 / 240 Other: # Voids 4 2 # Bowel Movements 1 - Constitutional no acute distress - Routine HEENT Exam Head: Present: normocephalic, atraumatic Eye: Present: normal accommodation ENT: Present: mucous membranes moist - Routine Neck Exam Present: supple, full ROM - Routine Respiratory Exam Present: CTA bilaterally - Routine Cardiovascular Exam Present: RRR, S1, S2 - Routine Abdominal Exam Present: soft, normoactive bowel sounds - Routine Extremities Exam Comments: purpura to right great toe noted - Routine Skin Exam Present: mottling - Routine Neurological Exam Present: alert, oriented X3 - Detailed Neurological Exam: Coma Scale Eye Opening: Spontaneous Verbal Response: Oriented Motor Response: Obey commands Miguelangel Coma Scale Total: 15 - Routine Psychiatric Exam Present: normal affect, normal thought process - Urinary Catheter Management Indwelling Urethral Catheter Cath placed during this visit: yes Urethral indwelling: No Reason for continuing: Other continuation reason Insertion date: 01/29/18 Insertion time: 07:15 Straight Cath placed during this visit: yes, but has since been removed by the nurse Reason for continuing: Not indwelling catheter Insertion date: 02/12/18 Insertion time: 06:15 Removal date: 02/12/18 Removal time: 06:20 Assessment and Plan - Assessment (1) Bilateral pneumonia Code(s): J18.9 - Pneumonia, unspecified organism Status: Acute Plan: stable Zyvox dc started on Ceftin ID following (2) Sepsis Code(s): A41.9 - Sepsis, unspecified organism Status: Acute Plan: Severe sepsis R/t pneumonia- resolved ID following Sputum culture-MRSA Blood cultures Negative (3) Acute respiratory failure with hypoxia and hypercarbia Code(s): J96.01 - Acute respiratory failure with hypoxia; J96.02 - Acute respiratory failure with hypercapnia Status: Resolved Plan: Required mechanical ventilation Room air, sat's maintained, Pulm following Cont with bronchodilators, oxygen support (4) Anxiety Code(s): F41.9 - Anxiety disorder, unspecified Status: Acute Plan: cont Ativan Restarted home medication Paxil (5) Mood disorder Code(s): F39 - Unspecified mood [affective] disorder Status: Acute Plan: Restarted home medication gabapentin (6) Migraines Code(s): G43.909 - Migraine, unspecified, not intractable, without status migrainosus Status: Acute Plan: Restarted home medication Topamax (7) Purpura Code(s): D69.2 - Other nonthrombocytopenic purpura Status: Acute Plan: Pod suggested right great toe discoloration is purpura and recommended nitroglycerin ointment and poss Vasc Consult. Will cont monitor closely. - Assessment and Plan 02/16/18- will restart home medications, PT activity, she is weak rehab recommended She has no payor source. 02/17/17- Seen this am had good night. Neurology consulted on 02/15 for LUE paraesthesia. Cont to work with PT/OT. Vss afebrile. 02/18/17- Seen this am she voices that neuro did see her last night ordered MRI , done this am negative. She still had LUE weakness, feels she is getting stronger but slow, She is being seen by Therapy. Will dc when when cleared by neuro 02/19/18 - MRI of neck and brain noted. Neuro cont to follow and she is participating in therapy for arm weakness. Podiatry suggests right great toe discoloration is purpura and has started nitroglycerin ointment. Will cont to monitor closely. (1) Bilateral pneumonia Qualifiers: Pneumonia type: due to unspecified organism Lung location: unspecified part of lung Qualified Code(s): J18.9 - Pneumonia, unspecified organism (2) Sepsis Qualifiers: Sepsis type: sepsis due to unspecified organism Qualified Code(s): A41.9 - Sepsis, unspecified organism
--- NOTE | 2018-02-19 11:57 | P.PNID ---
Subjective Remarks: Patient states that she feels okay. Reports that her breathing is fine. Has weakness on the left side upper and lower. Difficulty raising her left leg onto the bed to get into bed. No back pain. Awake and alert. Afebrile. 32-year-old white female who presented to the emergency department yesterday evening with respiratory symptoms. Emergency department report stated that the patient developed symptoms about a week ago consisting of body aches, nausea, vomiting, diarrhea, fever, chills, and sweats. She was seen at an urgent care center about a week ago and was diagnosed with flu. She subsequently developed a sore throat and pain on swallowing and loss of the voice as well as nonproductive cough. Her energy level is also reported to be very low. The patient was seen in the emergency department and temperature was 98.6, heart rate was elevated at 122, and white count was elevated at 20.8. She was put on nonrebreather mask and oxygen saturation was noted to be between 88% and 92%. The patient was subsequently intubated. Antibiotics: Cefuroxime. Past Medical History: PAST MEDICAL HISTORY: Reportedly negative. The patient has been evaluated for psychiatric adjustment disorder. Allergies/Adverse Reactions: Allergies Sulfa (Sulfonamide Antibiotics) Allergy (Intermediate, Verified 05/14/17 22:25) PT STATES INCREASES HER TEMP Objective Vital Signs 02/18/18 12:00 02/18/18 16:00 02/18/18 16:38 Temperature 98.2 F 98.3 F Pulse Rate 110 H 108 H Respiratory Rate 17 20 18 Blood Pressure 142/90 H 142/84 H Pulse Oximetry 97 99 02/18/18 20:00 02/19/18 00:00 Temperature 98.2 F 98.3 F Pulse Rate 121 H 113 H Respiratory Rate 18 18 Blood Pressure 120/72 129/60 Pulse Oximetry 97 95 Intake & Output 02/18/18 02/19/18 02/19/18 18:59 06:59 18:59 Intake Total 700 / 700 240 / 240 Balance 700 / 700 240 / 240 Weight 54.4 kg Intake: Oral 700 / 700 240 / 240 Other: # Voids 4 2 # Bowel Movements 1 02/15/18 11:45 Wound - Toe Gram Stain - Final 02/15/18 11:45 Wound - Toe Wound Culture - Final No growth in 72 hours (aerobically and anaerobically ) Imaging: ITS Impressions Chest CT 01/28/18 18:20 CONCLUSION: Extensive bilateral airspace disease Venous Doppler Study 02/07/18 13:15 CONCLUSION: The study is negative for bilateral lower extremity deep venous thrombosis. Aorta w/Runoff CTA 02/10/18 00:00 CONCLUSION: 1. Negative CTA. 2. Bibasilar areas of consolidation or atelectasis being worse in the right. Chest X-Ray 02/12/18 00:00 CONCLUSION: Minimal improvement, persistent airspace disease remains on the right. Abdomen X-Ray 02/12/18 08:51 CONCLUSION: Scattered stool with minimal scattered loops of large and small bowel nonspecific fashion. This has more the appearance of constipation. Shoulder X-Ray 02/13/18 13:00 CONCLUSION: Unremarkable study. Toe X-Ray 02/16/18 00:00 CONCLUSION: 1. No acute bony abnormalities are demonstrated. 2. Nonspecific soft tissue swelling of the great toe. 3. Anatomic variant type II accessory navicular. Cervical Spine MRI 02/18/18 00:00 CONCLUSION: 1. Broad-based mild central to right paracentral disc protrusion at C4-5 without significant canal or foraminal stenosis. Remainder of cervical spine unremarkable. Normal alignment. No cord impingement or cord signal abnormality. Head MRI 02/18/18 00:00 CONCLUSION: 1. No acute intracranial abnormality Physical Exam: GENERAL: Awake and alert. No acute distress. HEENT: Extraocular movements grossly intact. Pupils reactive to light. No icterus. NECK: No adenopathy or swelling. LUNGS: Clear to auscultation. HEART: Normal S1 and S2, without audible murmurs, rubs, or gallops. ABDOMEN: Decreased bowel sounds. Soft, nontender. No palpable mass. EXTREMITIES: No clubbing. No cyanosis, trace edema. The right great toe has purpuric discoloration. SKIN: No rash. warm and moist. NEUROLOGIC: Nonfocal PSYCHIATRIC: Calm. Lines without evidence of infection. Assessment and Plan - Plan IMPRESSION: 1. Bilateral pneumonia. MRSA. Treated. 2. Bacteremia. Staph aureus. MSSA. 3. Hypoxia. Resolved. 4. Acute respiratory failure. Resolved. 5. Elevated liver function tests. Improved. 6. Leukocytosis. 7. ALLERGY TO SULFA. 8. Right great toe ischemia. Wound culture negative. Evaluated by podiatry. RECOMMENDATIONS: 1. Stop cefuroxime. 2. Monitor without antibiotics. 3.. Monitor clinical status.
--- NOTE | 2018-02-19 17:13 | P.PNNEU ---
Subjective Subjective Comments: pt reports weakness mostly on left side but also right--states is weaker in arms than legs Active Medications: Active Medications Acetaminophen (Tylenol) 650 mg PO Q6H PRN PRN Reason: PAIN SCALE 1 - 4 Last Admin: 02/19/18 08:26 Dose: 650 mg Hydrocodone Bitart/Acetaminophen ([place] 7.5/325) 1 tab PO Q6H PRN PRN Reason: pain 5-10 Last Admin: 02/19/18 12:27 Dose: 1 tab Albuterol (Duoneb Neb (Prn)) 1 ampul NEB Q2HR NEB PRN PRN Reason: DYSPNEA Last Admin: 02/07/18 21:16 Dose: 1 ampul Albuterol (Albuterol Neb (Prn)) 2.5 mg NEB Q2HR NEB PRN PRN Reason: WHEEZING Last Admin: 02/07/18 17:51 Dose: 2.5 mg Chlorhexidine Gluconate (Peridex 0.12% Oral Kit) 15 ml OROPHARYNG BID@0800, 2000 [facility] Last Admin: 02/19/18 08:02 Dose: Not Given Famotidine (Pepcid) 20 mg PO BID [facility] Last Admin: 02/19/18 08:25 Dose: 20 mg Gabapentin (Neurontin) 100 mg PO TID [facility] Last Admin: 02/19/18 12:19 Dose: 100 mg Guaifenesin (Mucinex Er) 600 mg PO BID [facility] Last Admin: 02/19/18 08:25 Dose: 600 mg Lactulose (Lactulose Liq) 30 ml PO BID [facility] Last Admin: 02/19/18 08:28 Dose: Not Given Lorazepam (Ativan Inj) 0.25 mg IV.PUSH Q4H PRN PRN Reason: AGITATION OR ANXIETY Last Admin: 02/18/18 21:45 Dose: 0.25 mg Miscellaneous Medication () 1 each OROPHARYNG 0000,0400,1200,1600 [facility] Last Admin: 02/19/18 15:38 Dose: Not Given Mupirocin (Bactroban 2% Oint) 1 applicatio TOPICAL BID [facility] Last Admin: 02/19/18 08:29 Dose: 1 applicatio Nitroglycerin (Nitro-Bid 2% Oint) 0.5 inch TOPICAL Q8HR [facility] Last Admin: 02/19/18 13:58 Dose: 0.5 inch Paroxetine HCl (Paxil) 20 mg PO DAILY [facility] Last Admin: 02/19/18 08:25 Dose: 20 mg Potassium Chloride (K-Dur) 20 meq PO BID [facility] Last Admin: 02/19/18 08:25 Dose: 20 meq Senna/Docusate Sodium (Mona-Colace) 1 tab PO BID [facility] Last Admin: 02/19/18 08:25 Dose: 1 tab Sodium Biphosphate/Sodium Phosphate (Fleets Enema (Adult)) 118 ml RECTAL UNSCH PRN PRN Reason: CONSTIPATION Sodium Chloride (Ns Flush) 2 ml IV.FLUSH BID [facility] Last Admin: 02/19/18 08:35 Dose: 2 ml Sodium Chloride (Ns Flush) 2 ml IV.FLUSH PRN PRN PRN Reason: FLUSH AFTER USING IV ACCESS Topiramate (Topamax) 50 mg PO BID [facility] Last Admin: 02/19/18 08:25 Dose: 50 mg Allergies/Adverse Reactions: Allergies Allergy/AdvReac Type Severity Reaction Status Date / Time Sulfa (Sulfonamide Allergy Intermediate Verified 05/14/17 22:25 Antibiotics) Physical Exam Vital signs: Vital Signs 02/18/18 20:00 02/19/18 00:00 02/19/18 08:00 Temperature 98.2 F 98.3 F 98.0 F Pulse Rate 121 H 113 H 77 Respiratory Rate 18 18 14 Blood Pressure 120/72 129/60 128/65 Pulse Oximetry 97 95 95 02/19/18 12:00 Temperature 100.3 F H Pulse Rate 104 H Respiratory Rate 15 Blood Pressure 141/80 H Pulse Oximetry 96 Intake & Output 02/18/18 02/19/18 02/19/18 18:59 06:59 18:59 Intake Total 700 / 700 240 / 240 Balance 700 / 700 240 / 240 Weight 54.4 kg Intake: Oral 700 / 700 240 / 240 Other: # Voids 4 2 # Bowel Movements 1 - Routine Neurological Exam alert. speech normal CN intact MOTOR 4/5 LUE. 4+/5 RUE 4/5 BLE DTR--2-3+ patellar. 1+ UE - Urinary Catheter Management Indwelling Urethral Catheter Cath placed during this visit: yes Urethral indwelling: No Reason for continuing: Other continuation reason Insertion date: 01/29/18 Insertion time: 07:15 Straight Cath placed during this visit: yes, but has since been removed by the nurse Reason for continuing: Not indwelling catheter Insertion date: 02/12/18 Insertion time: 06:15 Removal date: 02/12/18 Removal time: 06:20 Objective Radiology Results: MRI brain normal MRI cervical spine--mild spondylosis with no cord compression Laboratory Results - last 24 hr 02/18/18 19:30 Urine Color Yellow Urine Clarity Cloudy H Urine pH 7.0 Ur Specific [place] 1.016 Urine Protein Negative Urine Glucose (UA) Negative Urine Ketones Negative Urine Occult Blood Negative Urine Nitrate Negative Urine Bilirubin Negative Urine Urobilinogen Less than 2 Ur Leukocyte Esterase Trace H Urine RBC 1 Urine WBC 4 Ur Squamous Epith Cells 2 Amorphous Sediment Rare H Urine Bacteria Occasional H Ur Microscopic Review Not Reportable Review/Management - Review/Management Plan: BUE and BLE weakness of ? etiology. Possible transverse myelitis. No sign of MS or cva on brain MRI. Recommend lumbar puncture to assess for myelitis. Will need to hold asa and lovenox.
[2018-02-20] MEDS: Oral Hygiene Kit OROPHARYNG SCH ×5 (00:07→23:31)
[2018-02-20] MEDS: Gabapentin 100 MG Capsule PO SCH ×3 (08:03→17:31)
[2018-02-20] MEDS: Senna/Docusate Sodium 8.6/50 MG Tablet PO SCH ×2 (08:03→21:19)
[2018-02-20] MEDS: Topiramate 25 MG Tablet PO SCH ×2 (08:03→21:19)
[2018-02-20] MEDS: Famotidine 20 MG Tablet PO SCH ×2 (08:03→21:26)
[2018-02-20] MEDS: guaiFENesin 600 MG ER Tablet PO SCH ×2 (08:03→21:19)
[2018-02-20] MEDS: Chlorhexidine 0.12% Oral Kit 15 ML UDC OROPHARYNG SCH ×2 (08:04→21:21)
[2018-02-20] MEDS: Sodium Chloride 0.9% 2 ML Flush BID IV.FLUSH SCH ×2 (08:05→21:20)
--- NOTE | 2018-02-20 11:51 | P.PNFP ---
Subjective Interval history: She cont to have left sided weakness and Neuro is following and planning an LP tomorrow to R/O myelitis. She is otherwise without complaints and tells me she slept well last night. Results - Labs Result diagrams: 02/15/18 05:13 02/15/18 05:13 Abnormal lab results 02/19/18 Range/Units 18:33 Vitamin B12 1263 H (193-986) pg/mL Physical Exam Vital signs: Vital Signs 02/19/18 12:00 02/19/18 16:00 02/19/18 20:00 Temperature 100.3 F H 98.0 F 98.1 F Pulse Rate 104 H 72 103 H Respiratory Rate 15 14 18 Blood Pressure 141/80 H 130/68 135/63 Pulse Oximetry 96 95 95 02/20/18 00:00 02/20/18 04:54 02/20/18 08:00 Temperature 98.0 F 98.1 F Pulse Rate 88 88 Respiratory Rate 18 18 17 Blood Pressure 134/67 126/61 Pulse Oximetry 95 95 Intake & Output 02/19/18 02/20/18 02/20/18 18:59 06:59 18:59 Intake Total 800 / 800 680 / 680 Balance 800 / 800 680 / 680 Intake: Oral 800 / 800 680 / 680 Other: # Voids 4 2 Date of Last Bowel Movement 02/19/18 # Bowel Movements 1 - Constitutional no acute distress - Routine HEENT Exam Head: Present: normocephalic, atraumatic ENT: Present: mucous membranes moist - Routine Neck Exam Present: supple, full ROM - Routine Respiratory Exam Present: decreased breath sounds - Routine Cardiovascular Exam Present: RRR, S1, S2 - Routine Abdominal Exam Present: soft, normoactive bowel sounds - Routine Extremities Exam Present: full ROM - Routine Skin Exam Present: intact - Routine Neurological Exam Present: alert, oriented X3 slight left sided weakness compared to contralateral - Detailed Neurological Exam: Coma Scale Eye Opening: Spontaneous Verbal Response: Oriented Motor Response: Obey commands Miguelangel Coma Scale Total: 15 - Routine Psychiatric Exam Present: normal affect, normal thought process - Urinary Catheter Management Indwelling Urethral Catheter Cath placed during this visit: yes Urethral indwelling: No Reason for continuing: Other continuation reason Insertion date: 01/29/18 Insertion time: 07:15 Straight Cath placed during this visit: yes, but has since been removed by the nurse Reason for continuing: Not indwelling catheter Insertion date: 02/12/18 Insertion time: 06:15 Removal date: 02/12/18 Removal time: 06:20 Assessment and Plan - Assessment (1) Bilateral pneumonia Code(s): J18.9 - Pneumonia, unspecified organism Status: Acute Plan: stable Zyvox dc started on Ceftin ID following (2) Sepsis Code(s): A41.9 - Sepsis, unspecified organism Status: Acute Plan: Severe sepsis R/t pneumonia- resolved ID following Sputum culture-MRSA Blood cultures Negative (3) Acute respiratory failure with hypoxia and hypercarbia Code(s): J96.01 - Acute respiratory failure with hypoxia; J96.02 - Acute respiratory failure with hypercapnia Status: Resolved Plan: Required mechanical ventilation Room air, sat's maintained, Pulm following Cont with bronchodilators, oxygen support (4) Anxiety Code(s): F41.9 - Anxiety disorder, unspecified Status: Acute Plan: cont Ativan Restarted home medication Paxil (5) Mood disorder Code(s): F39 - Unspecified mood [affective] disorder Status: Acute Plan: Restarted home medication gabapentin (6) Migraines Code(s): G43.909 - Migraine, unspecified, not intractable, without status migrainosus Status: Acute Plan: Restarted home medication Topamax (7) Purpura Code(s): D69.2 - Other nonthrombocytopenic purpura Status: Acute Plan: Podiatry suggested right great toe discoloration is purpura and recommended nitroglycerin ointment and poss Vasc Consult. Will cont monitor closely. - Assessment and Plan 02/16/18- will restart home medications, PT activity, she is weak rehab recommended She has no payor source. 02/17/17- Seen this am had good night. Neurology consulted on 02/15 for LUE paraesthesia. Cont to work with PT/OT. Vss afebrile. 02/18/17- Seen this am she voices that neuro did see her last night ordered MRI , done this am negative. She still had LUE weakness, feels she is getting stronger but slow, She is being seen by Therapy. Will dc when when cleared by neuro 02/19/18 - MRI of neck and brain noted. Neuro cont to follow and she is participating in therapy for arm weakness. Podiatry suggests right great toe discoloration is purpura and has started nitroglycerin ointment. Will cont to monitor closely. 02/20/18 - Neuro plans LP tomorrow to F/U for etiology of left sided weakness. Great toe still purple but without D/C, local heat or tenderness. Receiving nitro ointment per Podiatry. She denies SOB and remains afebrile on antibiotics. (1) Bilateral pneumonia Qualifiers: Pneumonia type: due to unspecified organism Lung location: unspecified part of lung Qualified Code(s): J18.9 - Pneumonia, unspecified organism (2) Sepsis Qualifiers: Sepsis type: sepsis due to unspecified organism Qualified Code(s): A41.9 - Sepsis, unspecified organism
--- NOTE | 2018-02-21 00:03 | P.PN ---
Subjective Interval history: alert NAD Physical Exam Vital signs: Vital Signs 02/20/18 04:54 02/20/18 08:00 02/20/18 12:00 Temperature 98.1 F 98.4 F Pulse Rate 88 92 H Respiratory Rate 18 17 20 Blood Pressure 126/61 116/59 L Pulse Oximetry 95 94 L 02/20/18 15:30 02/20/18 16:00 02/20/18 20:00 Temperature 98.1 F 98.2 F Pulse Rate 84 95 H Respiratory Rate 20 18 18 Blood Pressure 116/58 L 146/90 H Pulse Oximetry 95 95 Intake & Output 02/20/18 02/20/18 02/21/18 06:59 18:59 06:59 Intake Total 680 / 680 1999 Balance 680 / 680 1999 Intake: Oral 680 / 680 1999 Other: # Voids 2 4 Date of Last Bowel Movement 02/19/18 02/20/18 # Bowel Movements 1 1 Narrative: GENERAL: This is a well-nourished, well-developed patient, in no apparent distress. SKIN: Discoloration and purpura noted to right hallux HEAD: Atraumatic. EYES: Pupils equal round and reactive. ENT: Airway patent. NECK: Trachea midline. RESPIRATORY: Nonlabored breathing. MUSCULOSKELETAL:. Negative Homans sign bilaterally. NEUROLOGICAL: Awake and alert. Normal speech. Lower extremity physical exam: Vascular: Dorsalis pedis 2/4, posterior tibial 2/4. Capillary refill time within normal limits to digits X5 bilateral foot. Edema not present bilateral lower extremity Neuro: Gross sensation intact to bilateral lower extremity. Pinpoint sensation decreased right hallux. No hyperalgesia noted to bilateral lower extremity Dermatology: Purpura noted to right hallux, possible early signs of ischemia noted to right hallux. No local signs of infection noted. Musculoskeletal: No gross osseous deformities noted - Urinary Catheter Management Indwelling Urethral Catheter Cath placed during this visit: yes Urethral indwelling: No Reason for continuing: Other continuation reason Insertion date: 01/29/18 Insertion time: 07:15 Straight Cath placed during this visit: yes, but has since been removed by the nurse Reason for continuing: Not indwelling catheter Insertion date: 02/12/18 Insertion time: 06:15 Removal date: 02/12/18 Removal time: 06:20 Results - Labs CBC & Chem 7: 02/15/18 05:13 02/15/18 05:13 Assessment and Plan - Plan RESPIRATORY FAILURE, EXTUBATED PNEUMONIA, MRSA HEP C PLAN O2 NEEDED ANTIBX PER ID
--- NOTE | 2018-02-21 06:32 | XR ---
EXAM DATE: 02/21/2018 6:28 AM EST AGE/SEX: 32 years / Female INDICATIONS: Shortness of breath. CLINICAL DATA: This is the patient's subsequent encounter. Patient reports that signs and symptoms h ave been present for 3 weeks and indicates a pain score of 0/10. MEDICAL/SURGICAL HISTORY: . Pneumonia. Sepsis. Respiratory failure. Anxiety. Mood disorder. No ne. COMPARISON: [facility] [place], CHEST 1V SINGLE AP, 02/12/2018. . FINDINGS: Portable AP view of the chest demonstrates a normal-sized cardiac silhouette. There is mid and lower lung zone airspace consolidation bilaterally, increased from the prior study. No pleural effusion or pneumothorax is identified. Bones and soft tissues demonstrate no acute finding. CONCLUSION: Mid and lower lung zone airspace consolidation bilaterally. It has increased in the interval. Electronically signed by: Lv Lawrence MD Board Certified Radiologist 02/21/2018 6:30 AM EST
[2018-02-21] MEDS: Sodium Chloride 0.9% 2 ML Flush BID IV.FLUSH SCH ×2 (08:45→20:29)
[2018-02-21] MEDS: Acetaminophen 325 MG Tablet PO PRN (08:47)
[2018-02-21] MEDS: Senna/Docusate Sodium 8.6/50 MG Tablet PO SCH ×2 (08:47→20:31)
[2018-02-21] MEDS: Famotidine 20 MG Tablet PO SCH ×2 (08:48→20:28)
[2018-02-21] MEDS: guaiFENesin 600 MG ER Tablet PO SCH ×2 (08:48→20:28)
[2018-02-21] MEDS: Topiramate 25 MG Tablet PO SCH ×2 (08:48→20:28)
[2018-02-21] MEDS: Gabapentin 100 MG Capsule PO SCH ×3 (08:48→17:48)
--- NOTE | 2018-02-21 11:07 | P.PNFP ---
Subjective Interval history: She tells me she is sleeping well and tolerating her diet. She denies SOB and is without complaints today Results - Labs Result diagrams: 02/15/18 05:13 02/15/18 05:13 - Imaging Impressions Chest X-Ray 02/21/18 00:04 CONCLUSION: Mid and lower lung zone airspace consolidation bilaterally. It has increased in the interval. Physical Exam Vital signs: Vital Signs 02/20/18 12:00 02/20/18 15:30 02/20/18 16:00 Temperature 98.4 F 98.1 F Pulse Rate 92 H 84 Respiratory Rate 20 20 18 Blood Pressure 116/59 L 116/58 L Pulse Oximetry 94 L 95 02/20/18 20:00 02/21/18 00:00 02/21/18 08:00 Temperature 98.2 F 98.1 F 98.7 F Pulse Rate 95 H 92 H 85 Respiratory Rate 18 18 18 Blood Pressure 146/90 H 115/57 L 121/58 L Pulse Oximetry 95 95 94 L Intake & Output 02/20/18 02/21/18 02/21/18 18:59 06:59 18:59 Intake Total 1999 Balance 1999 Intake: Oral 1999 Other: # Voids 4 4 Date of Last Bowel Movement 02/20/18 02/20/18 # Bowel Movements 1 1 - Constitutional no acute distress - Routine HEENT Exam Head: Present: normocephalic Eye: Present: PERRL ENT: Present: mucous membranes moist - Routine Neck Exam Present: supple, full ROM - Routine Respiratory Exam Present: CTA bilaterally - Routine Cardiovascular Exam Present: RRR, S1, S2 - Routine Abdominal Exam Present: soft, normoactive bowel sounds. Absent: rebound, mass, hernia - Routine Extremities Exam Present: full ROM Comments: Purpura noted on right great toe without pain, D/C or local heat - Routine Skin Exam Present: intact - Routine Neurological Exam Present: alert, oriented X3 - Detailed Neurological Exam: Coma Scale Eye Opening: Spontaneous Verbal Response: Oriented Motor Response: Obey commands Miguelangel Coma Scale Total: 15 - Routine Psychiatric Exam Present: normal affect - Urinary Catheter Management Indwelling Urethral Catheter Cath placed during this visit: yes Urethral indwelling: No Reason for continuing: Other continuation reason Insertion date: 01/29/18 Insertion time: 07:15 Straight Cath placed during this visit: yes, but has since been removed by the nurse Reason for continuing: Not indwelling catheter Insertion date: 02/12/18 Insertion time: 06:15 Removal date: 02/12/18 Removal time: 06:20 Assessment and Plan - Assessment (1) Bilateral pneumonia Code(s): J18.9 - Pneumonia, unspecified organism Status: Acute Plan: stable Zyvox dc started on Ceftin ID and Pulm are following. CXR reveals mid and lower lung zone airspace consolidation bilaterally which has increased in the interval. (2) Sepsis Code(s): A41.9 - Sepsis, unspecified organism Status: Acute Plan: Severe sepsis R/t pneumonia- resolved ID following Sputum culture-MRSA Blood cultures Negative (3) Acute respiratory failure with hypoxia and hypercarbia Code(s): J96.01 - Acute respiratory failure with hypoxia; J96.02 - Acute respiratory failure with hypercapnia Status: Resolved Plan: Required mechanical ventilation Room air, sat's maintained, Pulm following Cont with bronchodilators, oxygen support (4) Anxiety Code(s): F41.9 - Anxiety disorder, unspecified Status: Acute Plan: cont Ativan Restarted home medication Paxil (5) Mood disorder Code(s): F39 - Unspecified mood [affective] disorder Status: Acute Plan: Restarted home medication gabapentin (6) Migraines Code(s): G43.909 - Migraine, unspecified, not intractable, without status migrainosus Status: Acute Plan: Restarted home medication Topamax (7) Purpura Code(s): D69.2 - Other nonthrombocytopenic purpura Status: Acute Plan: Podiatry suggested right great toe discoloration is purpura and recommended nitroglycerin ointment and poss Vasc Consult. Will cont monitor closely. - Assessment and Plan 02/16/18- will restart home medications, PT activity, she is weak rehab recommended She has no payor source. 02/17/17- Seen this am had good night. Neurology consulted on 02/15 for LUE paraesthesia. Cont to work with PT/OT. Vss afebrile. 02/18/17- Seen this am she voices that neuro did see her last night ordered MRI , done this am negative. She still had LUE weakness, feels she is getting stronger but slow, She is being seen by Therapy. Will dc when when cleared by neuro 02/19/18 - MRI of neck and brain noted. Neuro cont to follow and she is participating in therapy for arm weakness. Podiatry suggests right great toe discoloration is purpura and has started nitroglycerin ointment. Will cont to monitor closely. 02/20/18 - Neuro plans LP tomorrow to F/U for etiology of left sided weakness. Great toe still purple but without D/C, local heat or tenderness. Receiving nitro ointment per Podiatry. She denies SOB and remains afebrile on antibiotics. 02/21/18 - CXR noted to actually look worse today. Will defer to Pulm regarding course of therapy. She is without complaints and anticipating an LP per Neuro either today or tomorrow to eval apparent myelitis. She remains afebrile and her VS are stable and she is in NAD. (1) Bilateral pneumonia Qualifiers: Pneumonia type: due to unspecified organism Lung location: unspecified part of lung Qualified Code(s): J18.9 - Pneumonia, unspecified organism (2) Sepsis Qualifiers: Sepsis type: sepsis due to unspecified organism Qualified Code(s): A41.9 - Sepsis, unspecified organism
[2018-02-21] MEDS: Oral Hygiene Kit OROPHARYNG SCH ×3 (13:07→22:03)
[2018-02-21] MEDS: Chlorhexidine 0.12% Oral Kit 15 ML UDC OROPHARYNG SCH ×2 (13:09→20:29)
--- NOTE | 2018-02-21 18:11 | P.PN ---
Subjective Interval history: ALERT NO SOB Physical Exam Vital signs: Vital Signs 02/20/18 20:00 02/21/18 00:00 02/21/18 08:00 Temperature 98.2 F 98.1 F 98.7 F Pulse Rate 95 H 92 H 85 Respiratory Rate 18 18 18 Blood Pressure 146/90 H 115/57 L 121/58 L Pulse Oximetry 95 95 94 L 02/21/18 12:00 02/21/18 16:00 Temperature 98.1 F 97.8 F Pulse Rate 85 90 Respiratory Rate 18 18 Blood Pressure 113/52 L 117/58 L Pulse Oximetry 94 L 98 Intake & Output 02/20/18 02/21/18 02/21/18 18:59 06:59 18:59 Intake Total 1999 1500 / 1500 Balance 1999 1500 / 1500 Intake: Oral 1999 1500 / 1500 Other: # Voids 4 4 3 Date of Last Bowel Movement 02/20/18 02/20/18 02/20/18 # Bowel Movements 1 1 1 Narrative: GENERAL: This is a well-nourished, well-developed patient, in no apparent distress. SKIN: Discoloration and purpura noted to right hallux HEAD: Atraumatic. EYES: Pupils equal round and reactive. ENT: Airway patent. NECK: Trachea midline. RESPIRATORY: Nonlabored breathing. MUSCULOSKELETAL:. Negative Homans sign bilaterally. NEUROLOGICAL: Awake and alert. Normal speech. Lower extremity physical exam: Vascular: Dorsalis pedis 2/4, posterior tibial 2/4. Capillary refill time within normal limits to digits X5 bilateral foot. Edema not present bilateral lower extremity Neuro: Gross sensation intact to bilateral lower extremity. Pinpoint sensation decreased right hallux. No hyperalgesia noted to bilateral lower extremity Dermatology: Purpura noted to right hallux, possible early signs of ischemia noted to right hallux. No local signs of infection noted. Musculoskeletal: No gross osseous deformities noted - Urinary Catheter Management Indwelling Urethral Catheter Cath placed during this visit: yes Urethral indwelling: No Reason for continuing: Other continuation reason Insertion date: 01/29/18 Insertion time: 07:15 Straight Cath placed during this visit: yes, but has since been removed by the nurse Reason for continuing: Not indwelling catheter Insertion date: 02/12/18 Insertion time: 06:15 Removal date: 02/12/18 Removal time: 06:20 Results - Labs CBC & Chem 7: 02/15/18 05:13 02/15/18 05:13 - Imaging Impressions Chest X-Ray 02/21/18 00:04 CONCLUSION: Mid and lower lung zone airspace consolidation bilaterally. It has increased in the interval. Assessment and Plan - Plan RESPIRATORY FAILURE, EXTUBATED PNEUMONIA, MRSA HEP C PLAN O2 NEEDED ANTIBX PER ID F/U CXRAY
[2018-02-22] MEDS: Oral Hygiene Kit OROPHARYNG SCH ×4 (01:28→17:13)
[2018-02-22] MEDS: Chlorhexidine 0.12% Oral Kit 15 ML UDC OROPHARYNG SCH ×2 (10:10→20:22)
[2018-02-22] MEDS: Famotidine 20 MG Tablet PO SCH ×2 (10:11→20:21)
[2018-02-22] MEDS: Sodium Chloride 0.9% 2 ML Flush BID IV.FLUSH SCH ×2 (10:11→20:21)
[2018-02-22] MEDS: Topiramate 25 MG Tablet PO SCH ×2 (10:11→20:21)
[2018-02-22] MEDS: guaiFENesin 600 MG ER Tablet PO SCH ×2 (10:11→20:21)
[2018-02-22] MEDS: Senna/Docusate Sodium 8.6/50 MG Tablet PO SCH ×2 (10:11→20:21)
[2018-02-22] MEDS: Gabapentin 100 MG Capsule PO SCH ×3 (10:11→18:20)
[2018-02-22 10:50] LABS: Activated Partial Thrombo Time 28.2 sec (23.4-31.7); Prothrombin Time 10.2 sec (9.8-11.6)
--- NOTE | 2018-02-22 11:38 | P.PNFP ---
Subjective Interval history: slowly improving left sided weakness remains though improved will have spinal tap today Results - Labs Result diagrams: 02/15/18 05:13 02/15/18 05:13 Physical Exam Vital signs: Vital Signs 02/21/18 12:00 02/21/18 16:00 02/21/18 20:00 Temperature 98.1 F 97.8 F 98.1 F Pulse Rate 85 90 95 H Respiratory Rate 18 18 18 Blood Pressure 113/52 L 117/58 L 120/67 Pulse Oximetry 94 L 98 96 02/21/18 20:15 02/21/18 23:52 02/22/18 00:00 Temperature 98.0 F Pulse Rate 96 H Respiratory Rate 18 18 18 Blood Pressure 111/58 L Pulse Oximetry 94 L 02/22/18 04:00 02/22/18 07:35 02/22/18 08:00 Temperature 98.2 F Pulse Rate 95 H Respiratory Rate 18 20 18 Blood Pressure 113/66 Pulse Oximetry 96 Intake & Output 02/21/18 02/22/18 02/22/18 18:59 06:59 18:59 Intake Total 1500 / 1500 Balance 1500 / 1500 Weight 55.2 kg Intake: Oral 1500 / 1500 Other: # Voids 3 2 Date of Last Bowel Movement 02/20/18 02/20/18 02/20/18 # Bowel Movements 1 - Constitutional no acute distress - Routine HEENT Exam Head: Present: normocephalic, atraumatic Eye: Present: EOMI ENT: Present: mucous membranes moist - Routine Neck Exam Present: supple - Routine Respiratory Exam Present: CTA bilaterally - Routine Cardiovascular Exam Present: RRR - Routine Abdominal Exam Present: soft, normoactive bowel sounds - Routine Extremities Exam Comments: left sided weakness present - Routine Skin Exam Present: intact - Urinary Catheter Management Indwelling Urethral Catheter Cath placed during this visit: yes Urethral indwelling: No Reason for continuing: Other continuation reason Insertion date: 01/29/18 Insertion time: 07:15 Straight Cath placed during this visit: yes, but has since been removed by the nurse Reason for continuing: Not indwelling catheter Insertion date: 02/12/18 Insertion time: 06:15 Removal date: 02/12/18 Removal time: 06:20 Assessment and Plan - Assessment (1) Bilateral pneumonia Code(s): J18.9 - Pneumonia, unspecified organism Status: Acute Plan: stable Zyvox dc started on Ceftin ID and Pulm are following. CXR reveals mid and lower lung zone airspace consolidation bilaterally which has increased in the interval. (2) Sepsis Code(s): A41.9 - Sepsis, unspecified organism Status: Acute Plan: Severe sepsis R/t pneumonia- resolved ID following Sputum culture-MRSA Blood cultures Negative (3) Acute respiratory failure with hypoxia and hypercarbia Code(s): J96.01 - Acute respiratory failure with hypoxia; J96.02 - Acute respiratory failure with hypercapnia Status: Resolved Plan: Required mechanical ventilation Room air, sat's maintained, Pulm following Cont with bronchodilators, oxygen support (4) Anxiety Code(s): F41.9 - Anxiety disorder, unspecified Status: Acute Plan: cont Ativan Restarted home medication Paxil (5) Mood disorder Code(s): F39 - Unspecified mood [affective] disorder Status: Acute Plan: Restarted home medication gabapentin (6) Migraines Code(s): G43.909 - Migraine, unspecified, not intractable, without status migrainosus Status: Acute Plan: Restarted home medication Topamax (7) Purpura Code(s): D69.2 - Other nonthrombocytopenic purpura Status: Acute Plan: Podiatry suggested right great toe discoloration is purpura and recommended nitroglycerin ointment and poss Vasc Consult. Will cont monitor closely. - Assessment and Plan 02/16/18- will restart home medications, PT activity, she is weak rehab recommended She has no payor source. 02/17/17- Seen this am had good night. Neurology consulted on 02/15 for LUE paraesthesia. Cont to work with PT/OT. Vss afebrile. 02/18/17- Seen this am she voices that neuro did see her last night ordered MRI , done this am negative. She still had LUE weakness, feels she is getting stronger but slow, She is being seen by Therapy. Will dc when when cleared by neuro 02/19/18 - MRI of neck and brain noted. Neuro cont to follow and she is participating in therapy for arm weakness. Podiatry suggests right great toe discoloration is purpura and has started nitroglycerin ointment. Will cont to monitor closely. 02/20/18 - Neuro plans LP tomorrow to F/U for etiology of left sided weakness. Great toe still purple but without D/C, local heat or tenderness. Receiving nitro ointment per Podiatry. She denies SOB and remains afebrile on antibiotics. 02/21/18 - CXR noted to actually look worse today. Will defer to Pulm regarding course of therapy. She is without complaints and anticipating an LP per Neuro either today or tomorrow to eval apparent myelitis. She remains afebrile and her VS are stable and she is in NAD. 02/22 pt scheduled for CSF tap today (1) Bilateral pneumonia Qualifiers: Pneumonia type: due to unspecified organism Lung location: unspecified part of lung Qualified Code(s): J18.9 - Pneumonia, unspecified organism (2) Sepsis Qualifiers: Sepsis type: sepsis due to unspecified organism Qualified Code(s): A41.9 - Sepsis, unspecified organism
--- NOTE | 2018-02-22 12:43 | P.RAD ---
Post Procedure Progress Note - Pre Procedure Diagnosis (1) Polyneuropathy associated with critical illness - Post Procedure Diagnosis (1) Polyneuropathy associated with critical illness - Procedure Information Procedure Date: 02/22/18 Supervising Radiologist: Fab Nava MD Estimated blood loss (mL): 0 Anesthesia: Local - Plan of Activity Patient to Unit: Nursing Unit Patient Condition: Fair Additional Comments: LP completed without difficulty. 20cc of clear csf removed. full report to follow See PACS Report for procedural detail/treatment.
[2018-02-22 13:14] LABS: Total Protein,CSF 47.1 mg/dL (15.0-45.0)
[2018-02-22 13:33] LABS: RBC on Tube 4 0 /mm3
[2018-02-22 13:40] LABS: Lymphocytes, CSF 40 %; Monocytes,CSF 60 %; Neutrophils,CSF 0 %
--- NOTE | 2018-02-22 14:00 | IR ---
EXAM DATE: 02/22/2018 1:03 PM EST AGE/SEX: 32 years / Female INDICATIONS: Patient presents with left side weakness in need of lumbar puncture to rule out neuriti s. CLINICAL DATA: This is the patient's initial encounter. Patient reports that signs and symptoms have been present for 3 weeks and indicates a pain score of 7/10. MEDICAL/SURGICAL HISTORY: . History of MRSA, Hypoxia, Bilateral pneumonia, Sepsis, Leukocytosis , hepatitis C. None. COMPARISON: No prior exams available for comparison. FLUORO TIME (min): 0.45 IMAGE SERIES: 1 RADIATION DOSE: 6 mGy CAK ACCESS SITE: L4-5 LUMBAR PUNCTURE TIME: 12:35 hours FLUID: Total volume of 20.5 cc of clear fluid was removed. Fluid was sent to lab for ordered studies. PROCEDURE: 1. Fluoroscopic guided lumbar puncture. The risks, benefits and alternatives to the procedure were explained and verbal and written consent w as obtained. The site was prepped in sterile fashion. Full sterile technique was used, including ca p, mask, sterile gloves and gown and a large sterile sheet. Hand hygiene and 2% chlorhexidine and/or betadine/alcohol prep was utilized per protocol for cutaneous antisepsis. The skin and subcutaneous tissues were infiltrated with local anesthetic solution. With fluoroscopic guidance the lumbar thecal sac was punctured at the level above. The fluid describ ed above was removed without difficulty. The patient tolerated the procedure well and there were no complications. CONCLUSION: 1. Uncomplicated fluoroscopically guided lumbar puncture. Electronically signed by: Fab Nava MD Board Certified Radiologist 02/22/2018 1:58 PM EST
--- NOTE | 2018-02-22 16:50 | P.DIET ---
Nutritional Evaluation Type of nutrition evaluation: follow-up Nutrition consult regarding: Tube Feeding (TFing d/c'ed) Nutrition screening: [facility] Screening comments: [facility] 01/31/1802/03 [facility] for TF'ing Subjective Subjective Comments: Pt having CSF tap today. Objective - Diagnosis Bilateral Pneumonia w/Hypoxia, Sepsis, Leukocytosis - Objective % IBW: 109 Body Weight Used for Calculations: Actual (66.6 kg) Energy Needs - Lower Range (kCal/kg): 25 Energy Needs - Upper Range (kCal/kg): 30 Lower Limit kCal/kg (kCals): 1,665 Upper Limit kCal/kg (kCals): 1,998 Lower Limit Protein Factor (Grams per Kg): 1.1 Upper Limit Protein Factor (Grams per Kg): 1.3 Lower Protein Needs (Protein): 73 Upper Protein Needs (Protein): 87 Dietitian Reviewed in Medical Record: Current diet, Curent medications, Intake & Output, Labs, Medical history Diet Order: regular, ensure original x3 Oral Diet Intake Amount: Fair 50-75% Objective Comments: PMH includes: Hep C, borderline personality, anxiety Assessment Assessment: Pt's TF has been d'mel and she is tolerating a regular diet. Eating >50% with a BMI of 19.1. CBW = 55.[address] if needed. Recommendations: Continue regular diet with supplements
--- NOTE | 2018-02-22 16:53 | P.PN ---
Subjective Interval history: alert nad Physical Exam Vital signs: Vital Signs 02/21/18 20:00 02/21/18 20:15 02/21/18 23:52 Temperature 98.1 F Pulse Rate 95 H Respiratory Rate 18 18 18 Blood Pressure 120/67 Pulse Oximetry 96 02/22/18 00:00 02/22/18 04:00 02/22/18 07:35 Temperature 98.0 F 98.2 F Pulse Rate 96 H 95 H Respiratory Rate 18 18 20 Blood Pressure 111/58 L 113/66 Pulse Oximetry 94 L 96 02/22/18 08:00 02/22/18 11:25 02/22/18 12:00 Temperature 98 F Pulse Rate 92 H Respiratory Rate 18 20 18 Blood Pressure 115/70 Pulse Oximetry 95 02/22/18 12:41 02/22/18 13:41 02/22/18 15:35 Temperature 98 F 97.9 F 97.9 F Pulse Rate 94 H 95 H 99 H Respiratory Rate 20 18 20 Blood Pressure 120/76 118/70 115/69 Pulse Oximetry 96 96 95 02/22/18 16:00 Temperature Pulse Rate Respiratory Rate 18 Blood Pressure Pulse Oximetry Intake & Output 02/21/18 02/22/18 02/22/18 18:59 06:59 18:59 Intake Total 1500 / 1500 Output Total 2 / 2 Balance 1500 / 1500 -2 / -2 Weight 55.2 kg Intake: Oral 1500 / 1500 Output: Urine 2 / 2 Other: # Voids 3 2 Date of Last Bowel Movement 02/20/18 02/20/18 02/20/18 # Bowel Movements 1 Narrative: GENERAL: This is a well-nourished, well-developed patient, in no apparent distress. SKIN: Discoloration and purpura noted to right hallux HEAD: Atraumatic. EYES: Pupils equal round and reactive. ENT: Airway patent. NECK: Trachea midline. RESPIRATORY: Nonlabored breathing. MUSCULOSKELETAL:. Negative Homans sign bilaterally. NEUROLOGICAL: Awake and alert. Normal speech. Lower extremity physical exam: Vascular: Dorsalis pedis 2/4, posterior tibial 2/4. Capillary refill time within normal limits to digits X5 bilateral foot. Edema not present bilateral lower extremity Neuro: Gross sensation intact to bilateral lower extremity. Pinpoint sensation decreased right hallux. No hyperalgesia noted to bilateral lower extremity Dermatology: Purpura noted to right hallux, possible early signs of ischemia noted to right hallux. No local signs of infection noted. Musculoskeletal: No gross osseous deformities noted - Urinary Catheter Management Indwelling Urethral Catheter Cath placed during this visit: yes Urethral indwelling: No Reason for continuing: Other continuation reason Insertion date: 01/29/18 Insertion time: 07:15 Straight Cath placed during this visit: yes, but has since been removed by the nurse Reason for continuing: Not indwelling catheter Insertion date: 02/12/18 Insertion time: 06:15 Removal date: 02/12/18 Removal time: 06:20 Results - Labs CBC & Chem 7: 02/15/18 05:13 02/15/18 05:13 Laboratory Results - last 24 hr 02/22/18 02/22/18 02/22/18 09:36 12:35 12:35 PT 10.2 INR 1.0 APTT 28.2 CSF Volume (1) 4.8 CSF Supernat Color (1) Clear CSF Gross Blood (1) 0 CSF Volume (2) 4.7 CSF Supernat Color (2) Clear CSF Gross Blood (2) 0 CSF Volume (3) 4.9 CSF Supernat Color (3) Clear CSF Gross Blood (3) 0 CSF Volume (4) 5.4 CSF Supernat Color (4) Clear CSF Gross Blood (4) 0 CSF WBC (4) 1 CSF RBC (4) 0 CSF Neutrophils % 0 CSF Lymphocytes % 40 CSF Monocytes % 60 CSF Glucose 44 CSF Total Protein 47.1 H Microbiology 02/22/18 12:35 Lumbar Puncture Gram Stain - Final - Imaging Impressions Lumbar Puncture Fluoroscopy 02/22/18 00:00 CONCLUSION: 1. Uncomplicated fluoroscopically guided lumbar puncture. Assessment and Plan - Plan RESPIRATORY FAILURE, EXTUBATED PNEUMONIA, MRSA HEP C cxray PNA persists PLAN O2 NEEDED ANTIBX PER ID increase activity
[2018-02-23] MEDS: Oral Hygiene Kit OROPHARYNG SCH ×4 (01:02→19:32)
[2018-02-23] MEDS: Senna/Docusate Sodium 8.6/50 MG Tablet PO SCH ×2 (08:45→20:18)
[2018-02-23] MEDS: Famotidine 20 MG Tablet PO SCH ×2 (08:46→20:19)
[2018-02-23] MEDS: Sodium Chloride 0.9% 2 ML Flush BID IV.FLUSH SCH ×2 (08:46→20:19)
[2018-02-23] MEDS: Gabapentin 100 MG Capsule PO SCH ×3 (08:46→17:10)
[2018-02-23] MEDS: Topiramate 25 MG Tablet PO SCH ×2 (08:46→20:19)
[2018-02-23] MEDS: guaiFENesin 600 MG ER Tablet PO SCH ×2 (08:46→20:18)
[2018-02-23] MEDS: Chlorhexidine 0.12% Oral Kit 15 ML UDC OROPHARYNG SCH ×2 (08:48→20:19)
--- NOTE | 2018-02-23 09:19 | P.PN ---
Subjective Interval history: ALERT NO SOB AT REST Physical Exam Vital signs: Vital Signs 02/22/18 11:25 02/22/18 12:00 02/22/18 12:41 Temperature 98 F 98 F Pulse Rate 92 H 94 H Respiratory Rate 20 18 20 Blood Pressure 115/70 120/76 Pulse Oximetry 95 96 02/22/18 13:41 02/22/18 15:35 02/22/18 16:00 Temperature 97.9 F 97.9 F Pulse Rate 95 H 99 H Respiratory Rate 18 20 18 Blood Pressure 118/70 115/69 Pulse Oximetry 96 95 02/22/18 20:00 02/23/18 00:00 02/23/18 08:00 Temperature 98.6 F 97.8 F 97.8 F Pulse Rate 106 H 97 H 90 Respiratory Rate 17 18 17 Blood Pressure 138/75 112/57 L 113/57 L Pulse Oximetry 96 94 L 94 L Intake & Output 02/22/18 02/23/18 02/23/18 18:59 06:59 18:59 Intake Total 1400 / 1400 780 / 780 Output Total 505 / 505 Balance 895 / 895 780 / 780 Weight 55 kg Intake: Oral 480 / 480 780 / 780 Tube Irrigant 120 / 120 Water Bolus Amount 600 / 600 Other 200 / 200 Output: Urine 4 / 4 Stool 300 / 300 Urine/Stool Mix 1 / Emesis 200 / 200 Other: # Voids 2 1 # Incontinent Voids 1 Date of Last Bowel Movement 02/20/18 # Bowel Movements 1 # Emeses 1 Narrative: GENERAL: This is a well-nourished, well-developed patient, in no apparent distress. SKIN: Discoloration and purpura noted to right hallux HEAD: Atraumatic. EYES: Pupils equal round and reactive. ENT: Airway patent. NECK: Trachea midline. RESPIRATORY: Nonlabored breathing. MUSCULOSKELETAL:. Negative Homans sign bilaterally. NEUROLOGICAL: Awake and alert. Normal speech. Lower extremity physical exam: Vascular: Dorsalis pedis 2/4, posterior tibial 2/4. Capillary refill time within normal limits to digits X5 bilateral foot. Edema not present bilateral lower extremity Neuro: Gross sensation intact to bilateral lower extremity. Pinpoint sensation decreased right hallux. No hyperalgesia noted to bilateral lower extremity Dermatology: Purpura noted to right hallux, possible early signs of ischemia noted to right hallux. No local signs of infection noted. Musculoskeletal: No gross osseous deformities noted - Urinary Catheter Management Indwelling Urethral Catheter Cath placed during this visit: yes Urethral indwelling: No Reason for continuing: Other continuation reason Insertion date: 01/29/18 Insertion time: 07:15 Straight Cath placed during this visit: yes, but has since been removed by the nurse Reason for continuing: Not indwelling catheter Insertion date: 02/12/18 Insertion time: 06:15 Removal date: 02/12/18 Removal time: 06:20 Results - Labs CBC & Chem 7: 02/15/18 05:13 02/15/18 05:13 Laboratory Results - last 24 hr 02/22/18 02/22/18 02/22/18 09:36 12:35 12:35 PT 10.2 INR 1.0 APTT 28.2 CSF Volume (1) 4.8 CSF Supernat Color (1) Clear CSF Gross Blood (1) 0 CSF Volume (2) 4.7 CSF Supernat Color (2) Clear CSF Gross Blood (2) 0 CSF Volume (3) 4.9 CSF Supernat Color (3) Clear CSF Gross Blood (3) 0 CSF Volume (4) 5.4 CSF Supernat Color (4) Clear CSF Gross Blood (4) 0 CSF WBC (4) 1 CSF RBC (4) 0 CSF Neutrophils % 0 CSF Lymphocytes % 40 CSF Monocytes % 60 CSF Glucose 44 CSF Total Protein 47.1 H Microbiology 02/22/18 12:35 Lumbar Puncture Gram Stain - Final - Imaging Impressions Lumbar Puncture Fluoroscopy 02/22/18 00:00 CONCLUSION: 1. Uncomplicated fluoroscopically guided lumbar puncture. Assessment and Plan - Plan RESPIRATORY FAILURE, EXTUBATED PNEUMONIA, MRSA HEP C cxray PNA persists PLAN O2 NEEDED ANTIBX PER ID increase activity
--- NOTE | 2018-02-23 11:38 | P.PNID ---
Subjective Remarks: Patient without complaints. No fever. No difficulty breathing. Has weakness on the left side upper and lower. Difficulty raising her left leg onto the bed to get into bed but feels that her movement is improving. No back pain. Awake and alert. CSF counts does not suggest infection. 32-year-old white female who presented to the emergency department yesterday evening with respiratory symptoms. Emergency department report stated that the patient developed symptoms about a week ago consisting of body aches, nausea, vomiting, diarrhea, fever, chills, and sweats. She was seen at an urgent care center about a week ago and was diagnosed with flu. She subsequently developed a sore throat and pain on swallowing and loss of the voice as well as nonproductive cough. Her energy level is also reported to be very low. The patient was seen in the emergency department and temperature was 98.6, heart rate was elevated at 122, and white count was elevated at 20.8. She was put on nonrebreather mask and oxygen saturation was noted to be between 88% and 92%. The patient was subsequently intubated. Antibiotics: None Past Medical History: PAST MEDICAL HISTORY: Reportedly negative. The patient has been evaluated for psychiatric adjustment disorder. Allergies/Adverse Reactions: Allergies Sulfa (Sulfonamide Antibiotics) Allergy (Intermediate, Verified 05/14/17 22:25) PT STATES INCREASES HER TEMP Objective Vital Signs 02/22/18 12:00 02/22/18 12:41 02/22/18 13:41 Temperature 98 F 97.9 F Pulse Rate 94 H 95 H Respiratory Rate 18 20 18 Blood Pressure 120/76 118/70 Pulse Oximetry 96 96 02/22/18 15:35 02/22/18 16:00 02/22/18 20:00 Temperature 97.9 F 98.6 F Pulse Rate 99 H 106 H Respiratory Rate 20 18 17 Blood Pressure 115/69 138/75 Pulse Oximetry 95 96 02/23/18 00:00 02/23/18 08:00 02/23/18 08:46 Temperature 97.8 F 97.8 F Pulse Rate 97 H 90 Respiratory Rate 18 17 Blood Pressure 112/57 L 113/57 L Pulse Oximetry 94 L 94 L 94 L Intake & Output 02/22/18 02/23/18 02/23/18 18:59 06:59 18:59 Intake Total 1400 / 1400 780 / 780 Output Total 505 / 505 Balance 895 / 895 780 / 780 Weight 55 kg Intake: Oral 480 / 480 780 / 780 Tube Irrigant 120 / 120 Water Bolus Amount 600 / 600 Other 200 / 200 Output: Urine 4 / 4 Stool 300 / 300 Urine/Stool Mix 1 / Emesis 200 / 200 Other: # Voids 2 1 # Incontinent Voids 1 Date of Last Bowel Movement 02/20/18 # Bowel Movements 1 # Emeses 1 02/22/18 12:35 Lumbar Puncture Gram Stain - Final 02/22/18 12:35 Lumbar Puncture CSF Culture - Preliminary No growth in 24 hours Imaging: ITS Impressions Chest CT 01/28/18 18:20 CONCLUSION: Extensive bilateral airspace disease Venous Doppler Study 02/07/18 13:15 CONCLUSION: The study is negative for bilateral lower extremity deep venous thrombosis. Aorta w/Runoff CTA 02/10/18 00:00 CONCLUSION: 1. Negative CTA. 2. Bibasilar areas of consolidation or atelectasis being worse in the right. Abdomen X-Ray 02/12/18 08:51 CONCLUSION: Scattered stool with minimal scattered loops of large and small bowel nonspecific fashion. This has more the appearance of constipation. Shoulder X-Ray 02/13/18 13:00 CONCLUSION: Unremarkable study. Toe X-Ray 02/16/18 00:00 CONCLUSION: 1. No acute bony abnormalities are demonstrated. 2. Nonspecific soft tissue swelling of the great toe. 3. Anatomic variant type II accessory navicular. Cervical Spine MRI 02/18/18 00:00 CONCLUSION: 1. Broad-based mild central to right paracentral disc protrusion at C4-5 without significant canal or foraminal stenosis. Remainder of cervical spine unremarkable. Normal alignment. No cord impingement or cord signal abnormality. Head MRI 02/18/18 00:00 CONCLUSION: 1. No acute intracranial abnormality Chest X-Ray 02/21/18 00:04 CONCLUSION: Mid and lower lung zone airspace consolidation bilaterally. It has increased in the interval. Lumbar Puncture Fluoroscopy 02/22/18 00:00 CONCLUSION: 1. Uncomplicated fluoroscopically guided lumbar puncture. Physical Exam: GENERAL: Awake and alert. No acute distress. HEENT: Extraocular movements grossly intact. Pupils reactive to light. No icterus. NECK: No adenopathy or swelling. LUNGS: Clear breath sounds HEART: Normal S1 and S2, without audible murmurs, rubs, or gallops. ABDOMEN: Decreased bowel sounds. Soft, nontender. No palpable mass. EXTREMITIES: No clubbing. No cyanosis, trace edema. The right great toe has purpuric discoloration at the bulb which is unchanged. The nail bed is raised but not from the underlying tissue. SKIN: No rash. warm and moist. NEUROLOGIC: Left-sided weakness. PSYCHIATRIC: Calm. Lines without evidence of infection. Assessment and Plan - Plan IMPRESSION: 1. Bilateral pneumonia. MRSA. Treated. 2. Bacteremia. Staph aureus. MSSA. 3. Hypoxia. Resolved. 4. Acute respiratory failure. Resolved. 5. Elevated liver function tests. Improved. 6. Leukocytosis. 7. ALLERGY TO SULFA. 8. Right great toe ischemia. Wound culture negative. Evaluated by podiatry. RECOMMENDATIONS: Stable from ID standpoint. I will sign off now. Need to follow up with podiatry for toe ischemia.
--- NOTE | 2018-02-23 12:40 | P.PNFP ---
Subjective Interval history: pt had spinal tap yesterday dizzy and has headache today will keep in bed today dc in am if cephalgia improved Results - Labs Result diagrams: 02/15/18 05:13 02/15/18 05:13 Abnormal lab results 02/22/18 Range/Units 12:35 CSF Total Protein 47.1 H (15.0-45.0) mg/dL - Imaging Impressions Lumbar Puncture Fluoroscopy 02/22/18 00:00 CONCLUSION: 1. Uncomplicated fluoroscopically guided lumbar puncture. Physical Exam Vital signs: Vital Signs 02/22/18 12:41 02/22/18 13:41 02/22/18 15:35 Temperature 98 F 97.9 F 97.9 F Pulse Rate 94 H 95 H 99 H Respiratory Rate 20 18 20 Blood Pressure 120/76 118/70 115/69 Pulse Oximetry 96 96 95 02/22/18 16:00 02/22/18 20:00 02/23/18 00:00 Temperature 98.6 F 97.8 F Pulse Rate 106 H 97 H Respiratory Rate 18 17 18 Blood Pressure 138/75 112/57 L Pulse Oximetry 96 94 L 02/23/18 08:00 02/23/18 08:46 02/23/18 11:54 Temperature 97.8 F 97.7 F Pulse Rate 90 105 H Respiratory Rate 17 18 Blood Pressure 113/57 L 118/63 Pulse Oximetry 94 L 94 L 97 Intake & Output 02/22/18 02/23/18 02/23/18 18:59 06:59 18:59 Intake Total 1400 / 1400 780 / 780 Output Total 505 / 505 Balance 895 / 895 780 / 780 Weight 55 kg Intake: Oral 480 / 480 780 / 780 Tube Irrigant 120 / 120 Water Bolus Amount 600 / 600 Other 200 / 200 Output: Urine 4 / 4 Stool 300 / 300 Urine/Stool Mix 1 / 1 Emesis 200 / 200 Other: # Voids 2 1 # Incontinent Voids 1 Date of Last Bowel Movement 02/20/18 # Bowel Movements 1 # Emeses 1 - Constitutional mild distress - Routine HEENT Exam Head: Present: normocephalic, atraumatic Eye: Present: EOMI, PERRL ENT: Present: mucous membranes moist Comments: moderate headache when up - Routine Neck Exam Present: supple - Routine Respiratory Exam Present: CTA bilaterally - Routine Cardiovascular Exam Present: RRR - Routine Abdominal Exam Present: soft, normoactive bowel sounds - Routine Skin Exam Comments: open area great toe - Urinary Catheter Management Indwelling Urethral Catheter Cath placed during this visit: yes Urethral indwelling: No Reason for continuing: Other continuation reason Insertion date: 01/29/18 Insertion time: 07:15 Straight Cath placed during this visit: yes, but has since been removed by the nurse Reason for continuing: Not indwelling catheter Insertion date: 02/12/18 Insertion time: 06:15 Removal date: 02/12/18 Removal time: 06:20 Assessment and Plan - Assessment (1) Bilateral pneumonia Code(s): J18.9 - Pneumonia, unspecified organism Status: Acute Plan: stable Zyvox dc started on Ceftin ID and Pulm are following. CXR reveals mid and lower lung zone airspace consolidation bilaterally which has increased in the interval. (2) Sepsis Code(s): A41.9 - Sepsis, unspecified organism Status: Acute Plan: Severe sepsis R/t pneumonia- resolved ID following Sputum culture-MRSA Blood cultures Negative (3) Acute respiratory failure with hypoxia and hypercarbia Code(s): J96.01 - Acute respiratory failure with hypoxia; J96.02 - Acute respiratory failure with hypercapnia Status: Resolved Plan: Required mechanical ventilation Room air, sat's maintained, Pulm following Cont with bronchodilators, oxygen support (4) Anxiety Code(s): F41.9 - Anxiety disorder, unspecified Status: Acute Plan: cont Ativan Restarted home medication Paxil (5) Mood disorder Code(s): F39 - Unspecified mood [affective] disorder Status: Acute Plan: Restarted home medication gabapentin (6) Migraines Code(s): G43.909 - Migraine, unspecified, not intractable, without status migrainosus Status: Acute Plan: Restarted home medication Topamax (7) Purpura Code(s): D69.2 - Other nonthrombocytopenic purpura Status: Acute Plan: Podiatry suggested right great toe discoloration is purpura and recommended nitroglycerin ointment and poss Vasc Consult. Will cont monitor closely. - Assessment and Plan 02/16/18- will restart home medications, PT activity, she is weak rehab recommended She has no payor source. 02/17/17- Seen this am had good night. Neurology consulted on 02/15 for LUE paraesthesia. Cont to work with PT/OT. Vss afebrile. 02/18/17- Seen this am she voices that neuro did see her last night ordered MRI , done this am negative. She still had LUE weakness, feels she is getting stronger but slow, She is being seen by Therapy. Will dc when when cleared by neuro 02/19/18 - MRI of neck and brain noted. Neuro cont to follow and she is participating in therapy for arm weakness. Podiatry suggests right great toe discoloration is purpura and has started nitroglycerin ointment. Will cont to monitor closely. 02/20/18 - Neuro plans LP tomorrow to F/U for etiology of left sided weakness. Great toe still purple but without D/C, local heat or tenderness. Receiving nitro ointment per Podiatry. She denies SOB and remains afebrile on antibiotics. 02/21/18 - CXR noted to actually look worse today. Will defer to Pulm regarding course of therapy. She is without complaints and anticipating an LP per Neuro either today or tomorrow to eval apparent myelitis. She remains afebrile and her VS are stable and she is in NAD. 02/22 pt scheduled for CSF tap today 02/23 pt had spinal tap inital results essnl normal with mild elevation of protein pt now with bad headache when up will keep in bed today and look to dc home in am ifcephalgia improved I D has signed off (1) Bilateral pneumonia Qualifiers: Pneumonia type: due to unspecified organism Lung location: unspecified part of lung Qualified Code(s): J18.9 - Pneumonia, unspecified organism (2) Sepsis Qualifiers: Sepsis type: sepsis due to unspecified organism Qualified Code(s): A41.9 - Sepsis, unspecified organism
[2018-02-23] MEDS: Acetaminophen 325 MG Tablet PO PRN (13:00)
[2018-02-24] MEDS: Oral Hygiene Kit OROPHARYNG SCH ×2 (00:03→04:07)
[2018-02-24] MEDS: Chlorhexidine 0.12% Oral Kit 15 ML UDC OROPHARYNG SCH (07:20)
[2018-02-24 08:35] VITALS: BP 146/70; PULSE 91; RESP 17; TEMP 97.8; O2SAT 96
[2018-02-24] MEDS: Topiramate 25 MG Tablet PO SCH (08:37)
[2018-02-24] MEDS: Senna/Docusate Sodium 8.6/50 MG Tablet PO SCH (08:37)
[2018-02-24] MEDS: Gabapentin 100 MG Capsule PO SCH (08:38)
[2018-02-24] MEDS: guaiFENesin 600 MG ER Tablet PO SCH (08:38)
[2018-02-24] MEDS: Famotidine 20 MG Tablet PO SCH (08:38)
[2018-02-24] MEDS: Sodium Chloride 0.9% 2 ML Flush BID IV.FLUSH SCH (08:42)
[2018-02-24] MEDS: Acetaminophen 325 MG Tablet PO PRN (10:28)
--- NOTE | 2018-02-24 20:36 | P.DS ---
Date of admission: 01/28/18 19:54 Primary care physician: Con Guerrero DO Brief History from admission: This is a 32-year-old female that presented to the emergency department last evening. Per report reviewed the patient had complaints myalgias, nausea, vomiting diarrhea in conjunction fever and chills per review of the records the patient went to an urgent care center on and was diagnosed with the flu and subsequently sent home the patient stated her symptoms worsen so she presented to [facility] ED on 2017. Upon presentation imaging and laboratory studies were performed that initially revealed a significant leukocytosis with a WBC count of 20.8, hypokalemia and a chest x-ray revealing extensive bilateral airspace disease. The patient was bolused with IV fluids, and received prophylactic antibiotics, blood cultures were obtained. The patient was admitted to ICU at [place] and ICU was consulted on 01/28/2018 at 2059 ,and was placed on BiPAP overnight with worsening symptomatology. Respiratory rate throughout the night was noted to be in the high 30s-50, with O2 saturation 87-91 % throughout the night. Upon my arrival this am, I examined the patient at 0615, and upon my evaluation this a.m. was noted to be extremely dyspneic, unable to speak secondary to extreme dyspnea, respiratory rate 48-50, and O2 sat 86-87%. A stat ABG was obtained PaO2 was noted to be 84, on 100%, and the patient kept stating she could not breathe. The patient was emergently intubated x1 attempt. Visually O2 saturation remained in the mid 80s-88 % on PEEP 12, FIO2 of 100%, with a slightly extended I- time. A stat ABG was performed PaO2 was noted to be 72, ventilator adjustments continued to optimize oxygenation. Emergent A-line was placed for frequent blood sampling, to evaluate oxygenation. The patient was noted to be in a sinus tach the patient was bolused with additional IV fluids 2 L and placed on sedation, to include, Versed , propofol, fentanyl infusions. The patient's past medical history is significant for hepatitis C, borderline personality disorder Funes acted 2017 secondary to chronic anxiety per records reviewed the patient takes Klonopin. DS: Diagnosis - Discharge Diagnosis (1) Bilateral pneumonia Status: Acute (2) Sepsis Status: Acute (3) Acute respiratory failure with hypoxia and hypercarbia Status: Resolved (4) Anxiety Status: Acute (5) Mood disorder Status: Acute (6) Migraines Status: Acute DS: Medications - Discharge Medications Prescriptions: gabapentin 100 mg PO TID 30 Days #90 cap hydrocodone-acetaminophen 1 tab PO Q6H PRN 3 Days #12 tab PRN Reason: pain 5-10 lorazepam [Ativan] 1 mg VT BID PRN 30 Days #60 ml PRN Reason: AGITATION OR ANXIETY nitroglycerin [Nitro-Bid] 0.5 inch TOPICAL Q8HR 30 Days g DS: Summary Hospital Course: 32 yo admitted on 01/27/18 with respiratory symptoms x 1 week had recently been diagnoses with flu. Condition quickly worsened requiring intubation and roto prone She was under care of direct marketing specialist, ID consulted treated for B/L pneumonia - MRSA, Bacteremia Staph aureus. MSSA. Treated with Cefepime, azithromycin and vancomycin. She was extubated on 02/04/18. cardiology consulted for abnormal echocardiogram, EKG changes. Vascular consulted for Right great toe gangrene, work up concludes no vascular intervention. Seen by podiatry noted with early signs of ischemia, thought to be secondary to cocaine use and possible vasculitis, treated with Nitro paste and podiatry follow up. Patient developed left sided weakness, neuro consulted Mri, negative, Lumbar puncture completed negative for neurititis. She was seen by Pt/OT while in acute care. Continued to improve, Dc home with family. - Time Spent with Patient Total time spent providing and/or coordinating discharge services: Greater than 30 minutes - Quality: AMI Clinical Trial Participant: No - Quality: Stroke Symptom Onset Unknown: No - Quality: VTE Is this test being ordered to rule out VTE?: No Deep Vein Thrombosis/Pulmonary Embolism Present on Admission: No Exam Vital signs: Vital Signs 02/24/18 00:00 02/24/18 04:00 02/24/18 08:00 Temperature 98.0 F 97.8 F Pulse Rate 94 H 91 H Respiratory Rate 18 18 17 Blood Pressure 122/69 146/70 H Pulse Oximetry 95 96 Intake & Output 02/24/18 02/24/18 02/25/18 06:59 18:59 06:59 Intake Total 780 / 780 Balance 780 / 780 Weight 57 kg Intake: Oral 780 / 780 Other: # Voids 4 - Constitutional no acute distress - Routine HEENT Exam Eye: Present: PERRL ENT: Present: mucous membranes moist - Routine Neck Exam Present: supple - Routine Respiratory Exam Present: CTA bilaterally - Routine Cardiovascular Exam Present: S1, S2 - Routine Abdominal Exam Present: soft, normoactive bowel sounds - Routine Extremities Exam Present: pulses intact - Routine Skin Exam Present: dry, warm, wounds Comments: Right toe - Routine Neurological Exam Present: alert, oriented X3 Results Procedures completed during hospitalization: lumbar puncture 02/22 Labs on day of discharge: Labs from last 24 hours 02/22/18 12:35 CSF Albumin 26.4 CSF IgG 3.6 Serum IgG 730 L Serum Albumin 3220 Serum IgG/Albumin 0.2 CSF IgG/Albumin 0.14 CSF IgG Synthesis Rate 3.72 Ser Oligoclonal Bands 3 CSF Oligoclonal Bands 3 CSF/Serum IgG Index 0.61 CSF Olig Protein Interp 0 Preliminary micro results at discharge 02/22/18 12:35 CSF Culture - Preliminary Lumbar Puncture No growth in 48 hours - Impressions ITS Impressions Chest CT 01/28/18 18:20 CONCLUSION: Extensive bilateral airspace disease Venous Doppler Study 02/07/18 13:15 CONCLUSION: The study is negative for bilateral lower extremity deep venous thrombosis. Aorta w/Runoff CTA 02/10/18 00:00 CONCLUSION: 1. Negative CTA. 2. Bibasilar areas of consolidation or atelectasis being worse in the right. Abdomen X-Ray 02/12/18 08:51 CONCLUSION: Scattered stool with minimal scattered loops of large and small bowel nonspecific fashion. This has more the appearance of constipation. Shoulder X-Ray 02/13/18 13:00 CONCLUSION: Unremarkable study. Toe X-Ray 02/16/18 00:00 CONCLUSION: 1. No acute bony abnormalities are demonstrated. 2. Nonspecific soft tissue swelling of the great toe. 3. Anatomic variant type II accessory navicular. Cervical Spine MRI 02/18/18 00:00 CONCLUSION: 1. Broad-based mild central to right paracentral disc protrusion at C4-5 without significant canal or foraminal stenosis. Remainder of cervical spine unremarkable. Normal alignment. No cord impingement or cord signal abnormality. Head MRI 02/18/18 00:00 CONCLUSION: 1. No acute intracranial abnormality Chest X-Ray 02/21/18 00:04 CONCLUSION: Mid and lower lung zone airspace consolidation bilaterally. It has increased in the interval. Lumbar Puncture Fluoroscopy 02/22/18 00:00 CONCLUSION: 1. Uncomplicated fluoroscopically guided lumbar puncture. Discharge Plan - Discharge Disposition Patient Disposition: Discharge Home - Discharge Condition Condition: Critical - Discharge Order Discharge Orders: Discharge Order (Routine); Ordered 02/24/18 Ordered By: Brynn Santos ED Use Only Admit Order (Routine); Ordered 01/28/18 Ordered By: Gus Hyman - Physicians Team Primary Care Provider: Con Guerrero Attending Provider: Con Guerrero Other Providers: Obey Carballo MD ; Josesito Bellamy MD ; Renae Salazar MD ; Rodrick Mendoza MD ; Henri Todd MD ; Aflie Gamez DPM ; Reynaldo Stokes MD ; Ria Landaverde DPM ; Zackary Chacon MD, PhD
== END 2018-02-24 11:44 | disposition home or self-care (01) | DRG 870 ==
LOC: PHED 17:12 → PHEDA 19:54 → PHICU 22:41 → HIMC 01-29 14:00 → N07 02-15 15:44
PROVIDERS: ADMIT Family Medicine; ATTEND Family Medicine
DX: K59.00 Constipation, unspecified; R73.9 Hyperglycemia, unspecified; F17.210 Nicotine dependence, cigarettes, uncomplicated; F14.10 Cocaine abuse, uncomplicated; J15.212 Pneumonia due to Methicillin resistant Staphylococcus aureus; E87.6 Hypokalemia; Z88.2 Allergy status to sulfonamides; E83.42 Hypomagnesemia; D69.6 Thrombocytopenia, unspecified; G62.81 Critical illness polyneuropathy; Z99.11 Dependence on respirator [ventilator] status; E87.0 Hyperosmolality and hypernatremia; R06.03 Acute respiratory distress; D69.2 Other nonthrombocytopenic purpura; D64.9 Anemia, unspecified; R65.20 Severe sepsis without septic shock; J96.01 Acute respiratory failure with hypoxia; E87.4 Mixed disorder of acid-base balance; Z68.1 Body mass index [BMI] 19.9 or less, adult; E83.51 Hypocalcemia; R23.8 Other skin changes; K52.9 Noninfective gastroenteritis and colitis, unspecified; R00.0 Tachycardia, unspecified; J90 Pleural effusion, not elsewhere classified; E83.39 Other disorders of phosphorus metabolism; F60.3 Borderline personality disorder; J18.9 Pneumonia, unspecified organism; F41.9 Anxiety disorder, unspecified; Z87.01 Personal history of pneumonia (recurrent); G43.909 Migraine, unspecified, not intractable, without status migrainosus; A41.9 Sepsis, unspecified organism; J96.02 Acute respiratory failure with hypercapnia; E87.70 Fluid overload, unspecified; B19.20 Unspecified viral hepatitis C without hepatic coma; F39 Unspecified mood [affective] disorder
CPT/HCPCS: 31500; 36556; 36600; 62270; 70553; 71010; 71045; 71250; 72156; 73030; 73660; 74000; 74018; 75635; 76937; 77003; 80048; 80053; 80074; 80202; 80307; 81001; 82040; 82042; 82565; 82607; 82784; 82805; 82945; 82948; 82962; 83520; 83605; 83615; 83735; 83873; 83880; 83916; 84100; 84132; 84155; 84157; 84484; 84702; 84703; 85025; 85027; 85610; 85730; 86022; 86064; 86355; 86357; 86359; 86360; 86379; 86403; 87040; 87070; 87109; 87147; 87186; 87205; 87275; 87276; 87389; 87449; 87522; 87535; 87633; 87804; 88180; 88184; 88185; 89051; 90774; 93005; 93306; 93970; 94002; 94003; 94150; 94640; 94650; 94651; 94656; 94657; 94664; 94665; 94668; 96374; 97110; 97116; 97161; 97167; 97530; 97535; 99291; A9585; C8952; J0131; J0330; J0456; J0692; J1120; J1160; J1650; J1885; J1940; J2020; J2060; J2250; J2370; J2543; J2704; J2920; J2930; J3010; J3370; J3475; J3480; J7030; J7050; J7060; P9047; Q9967